=== PATIENT | male | born 1960 ===

== ENCOUNTER 2016-07-28 19:51 | Inpatient (IN) | payer OTHER ==
[2016-07-28 19:51] VITALS: BMI 27.5
[2016-07-28 20:08] VITALS: RESP 20
[2016-07-28] MEDS ORDERED: Albuterol-Ipratrop 3 mg / 0.5 (3 ml) UD ONE (20:13)
[2016-07-28] MEDS ORDERED: levETIRAcetam 500 MG in Sodium Chloride 0.9% 100 ML IVPB STA (20:30)
--- NOTE | 2016-07-28 20:31 | C.PDOC ---
History Of Present Illness 56 y/o male with PMHx inlcuding CAD, CABG, pacemaker, COPD, HTN, seizure disorder, polysubstance abuse, DM, chronically medically noncompliant, presents to ED with c/o shortness of breath. Patient brought in from triage and was started on nebulizer treatment. Patient began to have a seizure when placed in the stretcher and is now post-ictal, unable to provide further history. Time Seen by Provider: 07/28/16 20:26 Chief Complaint (Nursing): Shortness Of Breath History Per: Patient History/Exam Limitations: clinical condition Onset/Duration Of Symptoms: Unknown Associated Symptoms: denies: Fever, Ankle/Leg Swelling Past Medical History Reviewed: Historical Data, Nursing Documentation, Vital Signs Vital Signs: Last Vital Signs Temp 98.1 F 07/28/16 20:05 Pulse 110 H 07/28/16 20:05 Resp 20 07/28/16 20:05 BP 143/94 H 07/28/16 20:05 Pulse Ox 96 07/28/16 20:35 - Medical History PMH: Asthma, Back Problems, Cardia Arrhythmia (afib), CHF, COPD, Depression, HTN , Hypercholesterolemia, Pneumonia, Seizures Surgical History: CABG (x3), Coronary Stent (x2), Pacemaker - [facility] Procedures CORONAR ARTERIOGR-2 CATH (06/24/14) CORONARY ARTERY STENT INSERTION [id number] (06/24/14) INFLUENZA VACCINATION (04/25/14) INSERTION OF ONE VASCULAR STENT (06/24/14) INTRODUCE OF OTH THERAP SUBST INTO RESP TRACT, VIA OPENING (06/19/15) INTRODUCTION OF SERUM/TOX/VACCINE INTO MUSCLE, PERC APPROACH (01/05/16) LEFT HEART CARDIAC CATH (06/24/14) NEBULIZER THERAPY (07/12/14) PERCUTANEOUS TRANSLUMINAL CORONARY ANGIOPLASTY [PTCA] (06/24/14) PROCEDURE ON SINGLE VESSEL (06/24/14) VACCINATION NEC (04/25/14) Family History: States: Unknown Family Hx, Diabetes - Social History Hx Tobacco Use: Yes (occasional) Hx Alcohol Use: Yes Hx Substance Use: Yes (cocaine, marijuana, opiates) - Immunization History Hx Tetanus Toxoid Vaccination: No Hx Influenza Vaccination: No Hx Pneumococcal Vaccination: No Review Of Systems Review Of Systems: ROS cannot be obtained secondary to pt's inabilty to answer questions. Physical Exam - Physical Exam Appears: No Acute Distress, Other (post-ictal, not speaking) Skin: Warm, Dry Head: Atraumatic, Normacephalic Chest: Symmetrical Cardiovascular: Rhythm Regular (tachycardic) Respiratory: Wheezing (In all lung marcial) Gastrointestinal/Abdominal: Soft, No Tenderness Back: Normal Inspection Extremity: Normal ROM ED Course And Treatment - Laboratory Results Result Diagrams: 07/28/16 20:36 07/28/16 20:36 Lab Interpretation: Abnormal (Elevated LFTs, ETOH 285) ECG: Interpreted By Me ECG Rhythm: Sinus Tachycardia, ST/T Changes (T wave inversions II, III, AVF, V6) ECG Interpretation: Abnormal O2 Sat by Pulse Oximetry: 96 (RA) Pulse Ox Interpretation: Normal - Radiology CXR: Interpreted by Me CXR Interpretation: Yes: Other (vascular congestion) Progress Note: Patient woke after seizure and was a ble to speak with his brother. Was alert and oriented. he did have a second seizure lasting 1-2 minutes. Ativan 2mg given again, Keppra 500mg IVPB ordered. Reevaluation Time: 21:56 Reassessment Condition: Improved - Physician Consult Information Time Consulting Physician Contacted: 21:56 Physician Contacted: Quinten Lema Outcome Of Conversation: Patient to be admitted for exacerbation of COPD, Seizure disorder, Alcohol intoxication. Disposition - Disposition Disposition: HOSPITALIZED Disposition Time: 21:57 Condition: STABLE - POA Present On Arrival: None - Clinical Impression Clinical Impression: Chronic congestive heart failure, COPD exacerbation, Alcohol intoxication, Seizure disorder - Scribe Statement The provider has reviewed the documentation as recorded by the Lesli Sampson All medical record entries made by the Wilfridibshahana were at my direction and personally dictated by me. I have reviewed the chart and agree that the record accurately reflects my personal performance of the history, physical exam, medical decision making, and the department course for this patient. I have also personally directed, reviewed, and agree with the discharge instructions and disposition.
[2016-07-28 20:42] LABS: BASO # 0.1 K/uL (0.0-0.2); BASO % 1.1 % (0.0-2.0); EOS # 0.1 K/uL (0.0-0.7); EOS % 0.9 % (0.0-4.0); HEMATOCRIT 39.2 % (35.0-51.0); LYMPH # 1.7 K/uL (1.0-4.3); LYMPH % 16.3 % (20.0-40.0); MEAN CELL VOLUME 92.3 fL (80.0-94.0); MEAN CORPUSCULAR HGB CONC 32.4 g/dL (33.0-37.0); MONO # 1.2 K/uL (0.0-0.8); MONO % 11.8 % (0.0-10.0); NRBC % 0.2 % (0.0-2.0); RED CELL DISTRIBUTION WIDTH 15.9 % (11.5-14.5); WHITE BLOOD COUNT 10.3 K/uL (4.8-10.8)
[2016-07-28 20:42] LABS: VENOUS BLOOD GAS BASE EXCESS -0.8 mmol/L (0.0-2.0); VENOUS BLOOD GAS PCO2 44 mmHg (40-60); VENOUS BLOOD PH 7.36 (7.32-7.43)
[2016-07-28 20:49] LABS: CHLORIDE 103 mmol/L (98-107); POTASSIUM 3.4 mmol/L (3.6-5.2); SODIUM 140 mmol/L (132-148)
[2016-07-28 20:51] LABS: BILIRUBIN,TOTAL 0.7 mg/dL (0.2-1.3); CARBON DIOXIDE 23 mmol/L (22-30); GFR AFRICAN-AMERICAN > 60
[2016-07-28 20:52] LABS: ALB/GLOB RATIO 1.3 (1.0-2.1); ALKALINE PHOSPHATASE 208 U/L (38-126); ALT/SGPT 179 U/L (21-72); AST/SGOT 228 U/L (17-59); BLOOD UREA NITROGEN 10 mg/dL (9-20); CALCIUM 7.7 mg/dl (8.6-10.4); GLUCOSE,RANDOM 99 mg/dL (75-110); TOTAL PROTEIN 6.4 g/dL (6.3-8.3)
[2016-07-28 20:53] LABS: ALCOHOL SERUM 285 mg/dl (0-10)
--- NOTE | 2016-07-28 23:31 | CP.PCM.HP ---
Past Patient History - Infectious Disease Hx of Infectious Diseases: None - Tetanus Immunizations Tetanus Immunization: Unknown - Past Medical History & Family History Past Medical History?: Yes - Past Social History Smoking Status: Light Smoker < 10 Cigarettes Daily - CARDIAC Hx Cardia Arrhythmia: Yes (afib) Hx Congestive Heart Failure: Yes Hx Hypercholesterolemia: Yes Hx Hypertension: Yes Hx Pacemaker: Yes - PULMONARY Hx Asthma: Yes Hx Chronic Obstructive Pulmonary Disease (COPD): Yes Hx Pneumonia: Yes - NEUROLOGICAL Hx Seizures: Yes - HEENT Hx HEENT Problems: No - RENAL Hx Chronic Kidney Disease: No - ENDOCRINE/METABOLIC Hx Endocrine Disorders: Yes Hx Diabetes Mellitus Type 2: Yes - HEMATOLOGICAL/ONCOLOGICAL Hx Blood Disorders: No - INTEGUMENTARY Hx Dermatological Problems: No - MUSCULOSKELETAL/RHEUMATOLOGICAL Hx Musculoskeletal Disorders: Yes Hx Falls: Yes - GASTROINTESTINAL Hx Gastrointestinal Disorders: No - GENITOURINARY/GYNECOLOGICAL Hx Genitourinary Disorders: No - PSYCHIATRIC Hx Depression: Yes Hx Substance Use: Yes (cocaine, marijuana, opiates) - SURGICAL HISTORY Hx Coronary Artery Bypass Graft: Yes (x3) Hx Coronary Stent: Yes (x2) - ANESTHESIA Hx Anesthesia: Yes Hx Anesthesia Reactions: No Hx Malignant Hyperthermia: No Meds Allergies/Adverse Reactions: Allergies Allergy/AdvReac Type Severity Reaction Status Date / Time No Known Allergies Allergy Verified 04/28/16 04:19 Results - Vital Signs Recent Vital Signs: Last Vital Signs Temp 97.9 F 07/28/16 21:57 Pulse 108 H 07/28/16 21:57 Resp 20 07/28/16 21:57 BP 138/79 07/28/16 21:57 Pulse Ox 96 07/28/16 21:57 - Labs Result Diagrams: 07/28/16 20:36 07/28/16 20:36
[2016-07-28] MEDS ORDERED: Potassium Chloride 20 mEq/15 ml LIQ UD PO STA (23:57)
[2016-07-29] MEDS ORDERED: DiphenhydrAMINE 50 mg/ml Inj IM PRN (00:10)
[2016-07-29] MEDS: Albuterol-Ipratrop 3 mg / 0.5 (3 ml) UD INH SCH ×4 (01:34→19:31)
[2016-07-29] MEDS: MethylPREDNISolone 40 mg Vial IV SCH ×3 (06:30→21:23)
[2016-07-29 06:43] LABS: URINE BILIRUBIN NEGATIVE (NEGATIVE); URINE BLOOD NEGATIVE (NEGATIVE); URINE COLOR Yellow (YELLOW); URINE GLUCOSE (UA) NORMAL (Normal); URINE KETONE TRACE mg/dL (NEGATIVE); URINE LEUKOCYTE ESTERASE NEG Leu/uL (Negative); URINE PROTEIN NEGATIVE (NEGATIVE); URINE UROBILINOGEN NORMAL mg/dL (0.2-1.0); WBC URINE < 1 /hpf (0-5)
--- NOTE | 2016-07-29 09:31 | RAD ---
PROCEDURE: CHEST RADIOGRAPH, 1 VIEW HISTORY: Seizure COMPARISON: 11/27/2015 FINDINGS: LUNGS: Mild to moderate venous congestion. Right hilar prominence. Left basilar airspace opacity. Small bilateral pleural effusions. Biapical pleural thickening. PLEURA: As above. CARDIOVASCULAR: Cardiomegaly. Status post median sternotomy and CABG. Left-sided pacemaker. OSSEOUS STRUCTURES: Degenerative changes in the spine and shoulders. VISUALIZED UPPER ABDOMEN: Normal. OTHER FINDINGS: None. IMPRESSION: Mild to moderate venous congestion. Right hilar prominence. Left basilar airspace opacity. Small bilateral pleural effusions. Biapical pleural thickening.
[2016-07-29] MEDS: Enoxaparin 40 mg Syringe SC SCH (09:57)
[2016-07-29 10:08] LABS: BASO # 0.1 K/uL (0.0-0.2); BASO % 0.6 % (0.0-2.0); HEMATOCRIT 40.1 % (35.0-51.0); LYMPH # 1.1 K/uL (1.0-4.3); LYMPH % 9.4 % (20.0-40.0); MEAN CELL VOLUME 92.9 fL (80.0-94.0); MEAN CORPUSCULAR HEMOGLOBIN 29.7 pg (27.0-31.0); MEAN PLATELET VOLUME 9.3 fL (7.2-11.7); MONO # 0.3 K/uL (0.0-0.8); MONO % 2.4 % (0.0-10.0); NRBC % 0.1 % (0.0-2.0); PLATELET COUNT 270 K/uL (130-400); RED CELL DISTRIBUTION WIDTH 15.6 % (11.5-14.5); WHITE BLOOD COUNT 11.8 K/uL (4.8-10.8)
[2016-07-29] MEDS: Fluticasone-Salmeterol 250-50mcg Diskus INH SCH ×2 (10:27→19:31)
[2016-07-29 10:32] LABS: CHLORIDE 100 mmol/L (98-107); SODIUM 134 mmol/L (132-148)
[2016-07-29 10:35] LABS: ALB/GLOB RATIO 1.1 (1.0-2.1); ALKALINE PHOSPHATASE 229 U/L (38-126); ALT/SGPT 160 U/L (21-72); AST/SGOT 166 U/L (17-59); BLOOD UREA NITROGEN 8 mg/dL (9-20); CARBON DIOXIDE 24 mmol/L (22-30); GFR AFRICAN-AMERICAN > 60; GLUCOSE,RANDOM 180 mg/dL (75-110); TOTAL PROTEIN 6.8 g/dL (6.3-8.3)
[2016-07-29 10:36] LABS: CALCIUM 8.1 mg/dl (8.6-10.4)
[2016-07-29 11:01] LABS: NEUTROPHIL 90 % (50-75); TOTAL CELLS COUNTED 100
[2016-07-29] MEDS: Azithromycin 500 MG in Sodium Chloride 0.9% 250 ML IVPB SCH (11:21)
[2016-07-29] MEDS ORDERED: Digoxin 250 mcg (0.25 mg) Tab PO SCH ×2 (14:00→18:00)
[2016-07-29 17:40] VITALS: PULSE 92
--- NOTE | 2016-07-29 18:36 | CP.PCM.CON ---
Past Patient History - Infectious Disease Hx of Infectious Diseases: None - Tetanus Immunizations Tetanus Immunization: Unknown - Past Medical History & Family History Past Medical History?: Yes - Past Social History Smoking Status: Light Smoker < 10 Cigarettes Daily - CARDIAC Hx Congestive Heart Failure: Yes Hx Hypercholesterolemia: Yes Hx Hypertension: Yes - PULMONARY Hx Chronic Obstructive Pulmonary Disease (COPD): Yes - NEUROLOGICAL Hx Seizures: Yes - HEENT Hx HEENT Problems: No - RENAL Hx Chronic Kidney Disease: No - ENDOCRINE/METABOLIC Hx Diabetes Mellitus Type 2: Yes - HEMATOLOGICAL/ONCOLOGICAL Hx Blood Disorders: No - INTEGUMENTARY Hx Dermatological Problems: No - MUSCULOSKELETAL/RHEUMATOLOGICAL Hx Falls: Yes - GASTROINTESTINAL Hx Gastrointestinal Disorders: No - GENITOURINARY/GYNECOLOGICAL Hx Genitourinary Disorders: No - PSYCHIATRIC Hx Substance Use: Yes - SURGICAL HISTORY Hx Coronary Artery Bypass Graft: Yes (x3) Hx Coronary Stent: Yes (x2) - ANESTHESIA Hx Anesthesia: Yes Hx Anesthesia Reactions: No Hx Malignant Hyperthermia: No Meds Allergies/Adverse Reactions: Allergies Allergy/AdvReac Type Severity Reaction Status Date / Time No Known Allergies Allergy Verified 04/28/16 04:19 - Medications Medications: Current Medications Albuterol/Ipratropium (Duoneb 3 Mg/0.5 Mg (3 Ml) Ud) 3 ml INH RQ6 [facility] Last Admin: 07/29/16 14:04 Dose: 3 ml Aspirin (Ecotrin) 81 mg PO DAILY [facility] Last Admin: 07/29/16 09:56 Dose: 81 mg Carvedilol (Coreg) 3.125 mg PO BID [facility] Last Admin: 07/29/16 17:39 Dose: 3.125 mg Chlordiazepoxide (Librium) 25 mg PO Q8 PRN PRN Reason: tremors Last Admin: 07/29/16 14:00 Dose: 25 mg Clopidogrel Bisulfate (Plavix) 75 mg PO DAILY [facility] Last Admin: 07/29/16 09:55 Dose: 75 mg Digoxin (Lanoxin) 0.25 mg PO 1800 [facility] Last Admin: 07/29/16 17:39 Dose: 0.25 mg Diphenhydramine HCl (Benadryl) 25 mg IM Q12 PRN PRN Reason: Agitation Enoxaparin Sodium (Lovenox) 40 mg SC DAILY [facility] Last Admin: 07/29/16 09:57 Dose: 40 mg Folic Acid (Folic Acid) 1 mg PO DAILY [facility] Last Admin: 07/29/16 09:55 Dose: 1 mg Furosemide (Lasix) 40 mg PO DAILY [facility] Last Admin: 07/29/16 14:00 Dose: 40 mg Azithromycin 500 mg/ Sodium (Chloride) 250 mls @ 250 mls/hr IVPB DAILY [facility] Last Admin: 07/29/16 11:21 Dose: 250 mls/hr Ceftriaxone Sodium 1 gm/ (Sodium Chloride) 100 mls @ 100 mls/hr IVPB DAILY [facility] Last Admin: 07/29/16 09:58 Dose: 100 mls/hr Ketorolac Tromethamine (Toradol) 30 mg IVP Q6 PRN PRN Reason: Pain, moderate (4-7) Levetiracetam (Keppra) 500 mg PO BID [facility] Last Admin: 07/29/16 17:39 Dose: 500 mg Lorazepam (Ativan) 1 mg IVP Q12 PRN PRN Reason: Agitation Last Admin: 07/29/16 00:52 Dose: 1 mg Losartan Potassium (Cozaar) 25 mg PO DAILY [facility] Last Admin: 07/29/16 09:55 Dose: 25 mg Metformin HCl (Glucophage) 500 mg PO BID [facility] Last Admin: 07/29/16 17:39 Dose: 500 mg Methylprednisolone (Solu-Medrol) 40 mg IV Q8 [facility] Last Admin: 07/29/16 14:01 Dose: 40 mg Rosuvastatin Calcium (Crestor) 10 mg PO [facility] Fluticasone/Salmeterol (Advair Diskus 250/50) 1 puff INH RQ12 [facility] Last Admin: 07/29/16 10:27 Dose: 1 puff Thiamine HCl (Vitamin B1 Tab) 100 mg PO DAILY [facility] Last Admin: 07/29/16 09:56 Dose: 100 mg Results - Vital Signs Recent Vital Signs: Last Vital Signs Temp 97.5 F L 07/29/16 15:30 Pulse 95 H 07/29/16 15:30 Resp 20 07/29/16 15:30 BP 136/83 07/29/16 15:30 Pulse Ox 96 07/29/16 15:30 - Labs Result Diagrams: 07/29/16 10:02 07/29/16 10:02 Labs: Laboratory Results - last 24 hr 07/28/16 07/29/16 07/29/16 23:52 06:12 06:28 WBC RBC Hgb Hct MCV MCH MCHC RDW Plt Count MPV Neut % (Auto) Lymph % (Auto) [place] % (Auto) Eos % (Auto) Baso % (Auto) Neut # Lymph # [place] # Eos # Baso # Neutrophils % (Manual) Band Neutrophils % Lymphocytes % (Manual) Monocytes % (Manual) Platelet Estimate Anisocytosis (manual) Target Cells Sodium Potassium Chloride Carbon Dioxide Anion Gap BUN Creatinine Est GFR ( Amer) Est GFR (Non-Af Amer) POC Glucose (mg/dL) 59 L Random Glucose Calcium Total Bilirubin AST ALT Alkaline Phosphatase Total Protein Albumin Globulin Albumin/Globulin Ratio Prolactin Urine Color Yellow Urine Clarity Clear Urine pH 5.0 Ur Specific [place] 1.013 Urine Protein Negative Urine Glucose (UA) Normal Urine Ketones Trace Urine Blood Negative Urine Nitrate Negative Urine Bilirubin Negative Urine Urobilinogen Normal Ur Leukocyte Esterase Neg Urine WBC (Auto) < 1 Digoxin < 0.4 L Urine Opiates Screen Urine Methadone Screen Ur Barbiturates Screen Ur Phencyclidine Scrn Ur Amphetamines Screen U Benzodiazepines Scrn U Oth Cocaine Metabols U Cannabinoids Screen 07/29/16 07/29/16 07/29/16 06:28 06:30 10:02 WBC 11.8 H RBC 4.32 L Hgb 12.8 Hct 40.1 MCV 92.9 MCH 29.7 MCHC 32.0 L RDW 15.6 H Plt Count 270 MPV 9.3 Neut % (Auto) 87.6 H Lymph % (Auto) 9.4 L Bl[place] % (Auto) 2.4 Eos % (Auto) 0.0 Baso % (Auto) 0.6 Neut # 10.3 H Lymph # 1.1 Blanco # 0.3 Eos # 0.0 Baso # 0.1 Neutrophils % (Manual) 90 H Band Neutrophils % 3 H Lymphocytes % (Manual) 4 L Monocytes % (Manual) 3 Platelet Estimate Normal Anisocytosis (manual) Slight Target Cells Slight Sodium Potassium Chloride Carbon Dioxide Anion Gap BUN Creatinine Est GFR ( Amer) Est GFR (Non-Af Amer) POC Glucose (mg/dL) 82 Random Glucose Calcium Total Bilirubin AST ALT Alkaline Phosphatase Total Protein Albumin Globulin Albumin/Globulin Ratio Prolactin Urine Color Urine Clarity Urine pH Ur Specific [place] Urine Protein Urine Glucose (UA) Urine Ketones Urine Blood Urine Nitrate Urine Bilirubin Urine Urobilinogen Ur Leukocyte Esterase Urine WBC (Auto) Digoxin Urine Opiates Screen Negative Urine Methadone Screen Negative Ur Barbiturates Screen Negative Ur Phencyclidine Scrn Negative Ur Amphetamines Screen Negative U Benzodiazepines Scrn Positive U Oth Cocaine Metabols Negative U Cannabinoids Screen Negative 07/29/16 07/29/16 07/29/16 10:02 11:13 16:34 WBC RBC Hgb Hct MCV MCH MCHC RDW Plt Count MPV Neut % (Auto) Lymph % (Auto) Blanco % (Auto) Eos % (Auto) Baso % (Auto) Neut # Lymph # [place] # Eos # Baso # Neutrophils % (Manual) Band Neutrophils % Lymphocytes % (Manual) Monocytes % (Manual) Platelet Estimate Anisocytosis (manual) Target Cells Sodium 134 Potassium 4.0 Chloride 100 Carbon Dioxide 24 Anion Gap 14 BUN 8 L Creatinine 0.6 L Est GFR ( Amer) > 60 Est GFR (Non-Af Amer) > 60 POC Glucose (mg/dL) 312 H 272 H Random Glucose 180 H Calcium 8.1 L Total Bilirubin 1.0 AST 166 H D ALT 160 H Alkaline Phosphatase 229 H Total Protein 6.8 Albumin 3.6 Globulin 3.2 Albumin/Globulin Ratio 1.1 Prolactin 13.6 Urine Color Urine Clarity Urine pH Ur Specific [place] Urine Protein Urine Glucose (UA) Urine Ketones Urine Blood Urine Nitrate Urine Bilirubin Urine Urobilinogen Ur Leukocyte Esterase Urine WBC (Auto) Digoxin Urine Opiates Screen Urine Methadone Screen Ur Barbiturates Screen Ur Phencyclidine Scrn Ur Amphetamines Screen U Benzodiazepines Scrn U Oth Cocaine Metabols U Cannabinoids Screen
--- NOTE | 2016-07-29 18:53 | CT ---
PROCEDURE: CT HEAD WITHOUT CONTRAST. HISTORY: R/O Bleed /SDH COMPARISON: None available. TECHNIQUE: Axial computed tomography images were obtained through the head/brain without intravenous contrast. Radiation dose: Total exam DLP = 935.95 mGy-cm. This CT exam was performed using one or more of the following dose reduction techniques: Automated exposure control, adjustment of the mA and/or kV according to patient size, and/or use of iterative reconstruction technique. FINDINGS: Streak artifact obscures evaluation of the skullbase. HEMORRHAGE: No intracranial hemorrhage. BRAIN: No mass effect or edema. Scattered periventricular and subcortical white matter hypodensities, which are nonspecific, but often seen with chronic microvascular ischemic disease. More focal patchy hypodensities within the right frontal lobe and left frontal parietal white matter which may reflect encephalomalacia. VENTRICLES: No hydrocephalus. CALVARIUM: Unremarkable. PARANASAL SINUSES: Unremarkable as visualized. No significant inflammatory changes. MASTOID AIR CELLS: Unremarkable as visualized. No inflammatory changes. OTHER FINDINGS: None. IMPRESSION: Nonspecific white matter changes. More focal patchy hypodensities within the right frontal lobe and left frontal parietal white matter which may reflect encephalomalacia.Please note that MRI with diffusion imaging is more sensitive in the detection of acute ischemic event.
[2016-07-30] MEDS: Albuterol-Ipratrop 3 mg / 0.5 (3 ml) UD INH SCH ×3 (01:42→14:17)
--- NOTE | 2016-07-30 03:03 | CON ---
DATE: 07/29/2016 REASON FOR THE CONSULTATION: Seizures. CHIEF COMPLAINT: The patient was brought into [facility] with a history of shortness of breath. While he was placed on the stretcher, patient had witnessed seizure activities. In the Emergency R oom, patient found to have alcohol overdose. From neurological point of view, I was called in to ray luate him for further management. HISTORY OF PRESENT ILLNESS: The patient is a 56-year-old right-handed, moderately obese, ma tyler presenting with 5 years, history of seizure disorder, been on medication on Keppra, noncompliant w ith medication and history of alcohol use, being drank 4-5 bottles of beer yesterday. Following this , he had shortness of breath. On his way to the Emergency Room, he had witnessed seizure activities. No history of bowel or bladder incontinence. No history of bitten tongue. The patient does have seizures. The history of seizures is once a month. Lately, he is noncompliant with the medication. PAST MEDICAL HISTORY: Hypertension, status post coronary bypass and pacemaker placement, dyslipidemi a, [id number] diabetes mellitus. PERSONAL HISTORY: History of substance abuse and alcohol use. He is a light smoker of less than 10 cigarettes per day as per the history. REVIEW OF SYSTEMS: As per H and P. MEDICATIONS: Advair, Ativan, azithromycin, Benadryl, ceftriaxone, Coreg, Cozaar, Crestor, aspirin, f olic acid, metformin, Levetiracetam 500 mg twice a day, Lanoxin, furosemide, Librium and Lovenox. PHYSICAL EXAMINATION: VITAL SIGNS: Blood pressure 136/83, mean arterial pressure of 100, respiratory rate 16, temperature 97.5 degrees Fahrenheit, pulse rate 95 irregular. NECK: Supple. No carotid bruit. HEART: Sounds irregularly irregular. EXTREMITIES: 1+ pitting edema. The patient complaining of right shoulder pain from the fall. NEUROLOGIC EXAMINATION: MENTAL STATUS EXAMINATION: He is awake, alert, oriented to person, place, a nd time. Speech is clear. Naming, repetition, fluency, comprehension all within normal. No evidenc e of suicidal ideation. No confabulation. PSYCHIATRIC: No sign of depression. CRANIAL NERVE EXAMINATION: Visual field intact, pupil reactive to light. Extraocular movements are normal. No nystagmus, no facial sensory deficit, no facial asymmetry. Hearing is normal. Tongue is midline. Good gag. MOTOR: Outstretched hand with eyes closed, no drift noted. Power is symmetric on either side. No a sterixis. DEEP TENDON REFLEXES: Biceps, brachioradialis, triceps 1+. Both knees are trace. Both ankles are a bsent. Plantars are equivocal response. SENSORY: Significant bilateral distal sensory motor neuropathy, which is probably secondary to his u nderlying diabetes mellitus and his alcohol use at present. GAIT: Broad based gait. CONCLUSION: Upon reviewing his history and neurological examination, the patient presenting with his seizures and a history of alcohol overdose. Intracranial pathology should be ruled out at this time . The patient's seizures are probably secondary to his subtherapeutic dose and noncompliance with an tiepileptic drugs. There is significant distal sensory and motor neuropathy secondary to diabetes me llitus and alcohol use. Cardiac arrhythmias. BLOOD WORKUP: WBC 11.8, hemoglobin 12.8, hematocrit 40.1, platelet 270. Sodium 134, potassium 4.0, chloride 100, bicarbonate 24, BUN 8, creatinine 0.6. The GFR more than 60, glucose 272, calcium 8.1. Prolactin level was 13.6. Digoxin level 0.4. Alcohol level 285, benzos positive in the blood. RECOMMENDATIONS: 1. Resume his Keppra dose 2. EEG. 3. CT of the head to be done to rule out any intracranial pathology such as intracranial bleed. 4. For pain medication, important nonsteroidal anti-inflammatory drugs can be given for his right sh oulder pain. The patient's condition has been well discussed with him. Options for him are called weight reductio n and diabetic control. All are being discussed with him. The patient should have polysomnogram to rule out sleep related breathing disorder such as obstructive sleep apnea versus a central sleep apne a. The patient's condition has been well discussed. The patient is aware of his problem. The patient w ill be followed closely with you. Dre Samano MD cc: [id number] TT: 07/30/2016 03:02:49 Confirmation # [id number] Dictation # [id number] mn
[2016-07-30] MEDS: MethylPREDNISolone 40 mg Vial IV SCH ×2 (05:13→13:28)
[2016-07-30] MEDS ORDERED: Naproxen 550 mg Tab PO PRN (07:26)
[2016-07-30] MEDS: Fluticasone-Salmeterol 250-50mcg Diskus INH SCH (07:54)
[2016-07-30 08:12] VITALS: TEMP 97.9; O2SAT 99
--- NOTE | 2016-07-30 09:12 | PN ---
DATE: 07/30/2016 TIME OF EVALUATION: 7:14 a.m. NEUROLOGICAL PROBLEM: Recurrent seizures with alcohol abuse. PHYSICAL EXAMINATION: VITAL SIGNS: Blood pressure 124/83, mean arterial pressure of 96, respiratory rate 18, temperature 9 8.1 with a pulse rate 94. NEUROLOGIC: The patient is sound sleeping, easily arousable on calling his last name. Still complai agustín of right shoulder pain. Otherwise, he slept well. No headache. Not any new witnessed seizure activity since he was admitted. Examination is unchanged except tenderness over the right shoulder. No sign of delirium tremens or a lcohol intoxication at present. WORKUP: CT of the head reviewed by me showed a focal encephalopathy over the right frontal as well a s the left temporoparietal region. This could be related to old stroke versus posttraumatic insult. There is no evidence of intracranial as well as extracranial bleed noted. The patient also noted to have subcortical ischemic changes over the left basal ganglia as well. BLOOD WORKUP: Glucose 232. RECOMMENDATIONS: 1. Electroencephalogram. 2. Continue Keppra with seizure precaution. 3. MRI of the brain to be done to rule out any new focal pathology. 4. Pain medication should be given for his right shoulder. The patient may be benefited to do x-ray of the right shoulder to rule out any acute pathology. 5. Alcohol abstinence has been discussed earlier with him. 6. Continue the present management with the proper hydration. Dre Samano MD cc: [id number] TT: 07/30/2016 09:11:54 Confirmation # [id number] Dictation # [id number]
[2016-07-30] MEDS: Enoxaparin 40 mg Syringe SC SCH (10:11)
[2016-07-30 10:12] VITALS: BP 147/81
--- NOTE | 2016-07-30 11:04 | RAD ---
PROCEDURE: Radiographs of the Right Shoulder HISTORY: R/O fracture COMPARISON: No prior. FINDINGS: BONES: No evidence of acute displaced fracture nor dislocation. The osseous structures appear intact. Minor degenerate changes of the right acromioclavicular and glenohumeral joints. Tiny calcification seen within the soft tissues adjacent to the superior glenoid rim. JOINTS: As above SOFT TISSUES: As above. OTHER FINDINGS: Sternotomy wires. In addition, in situ pacemaker wire is also visible IMPRESSION: No evidence of acute displaced fracture nor dislocation. Mild DJD. . .
[2016-07-30] MEDS: Azithromycin 500 MG in Sodium Chloride 0.9% 250 ML IVPB SCH (11:12)
--- NOTE | 2016-07-30 12:14 | CARD ---
APPROVED REPORT EKG Measurement Heart [id number] <Conclusion> Poor data quality, interpretation may be adversely affected Sinus tachycardia Inferior infarct, age undetermined Abnormal ECG
--- NOTE | 2016-07-30 14:01 | CP.PCM.PN ---
Objective - Vital Signs/Intake and Output Vital Signs (last 24 hours): Temp Pulse Resp BP Pulse Ox 97.9 F 96 H 20 147/81 99 07/30/16 07:05 07/30/16 08:00 07/30/16 07:05 07/30/16 10:08 07/30/16 07:05 - Medications Medications: Current Medications Albuterol/Ipratropium (Duoneb 3 Mg/0.5 Mg (3 Ml) Ud) 3 ml INH RQ6 [facility] Last Admin: 07/30/16 07:55 Dose: 3 ml Aspirin (Ecotrin) 81 mg PO DAILY [facility] Last Admin: 07/30/16 10:08 Dose: 81 mg Carvedilol (Coreg) 3.125 mg PO BID [facility] Last Admin: 07/30/16 10:10 Dose: 3.125 mg Chlordiazepoxide (Librium) 25 mg PO Q8 PRN PRN Reason: tremors Last Admin: 07/29/16 14:00 Dose: 25 mg Clopidogrel Bisulfate (Plavix) 75 mg PO DAILY [facility] Last Admin: 07/30/16 10:09 Dose: 75 mg Digoxin (Lanoxin) 0.25 mg PO 1800 [facility] Last Admin: 07/29/16 17:39 Dose: 0.25 mg Diphenhydramine HCl (Benadryl) 25 mg IM Q12 PRN PRN Reason: Agitation Enoxaparin Sodium (Lovenox) 40 mg SC DAILY [facility] Last Admin: 07/30/16 10:11 Dose: Not Given Famotidine (Pepcid) 20 mg IVP Q12 [facility] Last Admin: 07/30/16 10:15 Dose: 20 mg Folic Acid (Folic Acid) 1 mg PO DAILY [facility] Last Admin: 07/30/16 10:09 Dose: 1 mg Furosemide (Lasix) 40 mg PO DAILY [facility] Last Admin: 07/30/16 10:08 Dose: 40 mg Azithromycin 500 mg/ Sodium (Chloride) 250 mls @ 250 mls/hr IVPB DAILY [facility] Last Admin: 07/30/16 11:12 Dose: 250 mls/hr Ceftriaxone Sodium 1 gm/ (Sodium Chloride) 100 mls @ 100 mls/hr IVPB DAILY [facility] Last Admin: 07/30/16 09:59 Dose: 100 mls/hr Ketorolac Tromethamine (Toradol) 30 mg IVP Q6 PRN PRN Reason: Pain, moderate (4-7) Last Admin: 07/30/16 10:03 Dose: 30 mg Levetiracetam (Keppra) 500 mg PO BID [facility] Last Admin: 07/30/16 10:08 Dose: 500 mg Lorazepam (Ativan) 1 mg IVP Q12 PRN PRN Reason: Agitation Last Admin: 07/29/16 00:52 Dose: 1 mg Losartan Potassium (Cozaar) 25 mg PO DAILY [facility] Last Admin: 07/30/16 10:09 Dose: 25 mg Metformin HCl (Glucophage) 500 mg PO BID [facility] Last Admin: 07/30/16 10:09 Dose: 500 mg Methylprednisolone (Solu-Medrol) 40 mg IV Q8 [facility] Last Admin: 07/30/16 13:28 Dose: 40 mg Naproxen (Anaprox Ds) 550 mg PO BID PRN PRN Reason: Pain, moderate (4-7) Rosuvastatin Calcium (Crestor) 10 mg PO HS [facility] Last Admin: 07/29/16 21:22 Dose: 10 mg Fluticasone/Salmeterol (Advair Diskus 250/50) 1 puff INH RQ12 [facility] Last Admin: 07/30/16 07:54 Dose: 1 puff Thiamine HCl (Vitamin B1 Tab) 100 mg PO DAILY [facility] Last Admin: 07/30/16 10:09 Dose: 100 mg - Labs Labs: 07/29/16 10:02 07/29/16 10:02
--- NOTE | 2016-07-30 15:36 | CP.PCM.PN ---
Subjective - Date & Time of Evaluation Date of Evaluation: 07/30/16 Time of Evaluation: 15:35 - Subjective Subjective: 56 Y/O MALE SEEN AND EXAMINED BY DR ROSADO TODAY PMHX CAD, CABG, PACEMAKER, HTN, SEIZURE, POLYSUB ABUSE, DM, MEDICALLY NON- COMPLIANT PT, ADMITTED FOR SOB, SEIZURE WHILE IN ED, SEEN BY DR GUZMÁN, IMPROVED W/MEDS, NO SEIZURE TODAY AAOX3, DENIES ANY PAIN, SOB, PT WISH TO D/C HOME TODAY PT CLEARED FOR D/C BY DR ROSADO AND DR GUZMÁN TODAY, MED REC DONE PT EDUCATED TO F/U W/ DR GUZMÁN FOR OUTPT EEG. F/U W/PMD RETURN TO ED IF ANY WORSENING S/S, AGREE W/POC, VERBALIZE UNDERSTANDING Objective - Vital Signs/Intake and Output Vital Signs (last 24 hours): Temp Pulse Resp BP Pulse Ox 97.9 F 96 H 20 147/81 99 07/30/16 07:05 07/30/16 08:00 07/30/16 07:05 07/30/16 10:08 07/30/16 07:05 - Medications Medications: Current Medications Albuterol/Ipratropium (Duoneb 3 Mg/0.5 Mg (3 Ml) Ud) 3 ml INH RQ6 [facility] Last Admin: 07/30/16 14:17 Dose: 3 ml Aspirin (Ecotrin) 81 mg PO DAILY [facility] Last Admin: 07/30/16 10:08 Dose: 81 mg Carvedilol (Coreg) 3.125 mg PO BID [facility] Last Admin: 07/30/16 10:10 Dose: 3.125 mg Chlordiazepoxide (Librium) 25 mg PO Q8 PRN PRN Reason: tremors Last Admin: 07/29/16 14:00 Dose: 25 mg Clopidogrel Bisulfate (Plavix) 75 mg PO DAILY [facility] Last Admin: 07/30/16 10:09 Dose: 75 mg Digoxin (Lanoxin) 0.25 mg PO 1800 [facility] Last Admin: 07/29/16 17:39 Dose: 0.25 mg Diphenhydramine HCl (Benadryl) 25 mg IM Q12 PRN PRN Reason: Agitation Enoxaparin Sodium (Lovenox) 40 mg SC DAILY [facility] Last Admin: 07/30/16 10:11 Dose: Not Given Famotidine (Pepcid) 20 mg IVP Q12 [facility] Last Admin: 07/30/16 10:15 Dose: 20 mg Folic Acid (Folic Acid) 1 mg PO DAILY [facility] Last Admin: 07/30/16 10:09 Dose: 1 mg Furosemide (Lasix) 40 mg PO DAILY [facility] Last Admin: 07/30/16 10:08 Dose: 40 mg Azithromycin 500 mg/ Sodium (Chloride) 250 mls @ 250 mls/hr IVPB DAILY [facility] Last Admin: 07/30/16 11:12 Dose: 250 mls/hr Ceftriaxone Sodium 1 gm/ (Sodium Chloride) 100 mls @ 100 mls/hr IVPB DAILY [facility] Last Admin: 07/30/16 09:59 Dose: 100 mls/hr Ketorolac Tromethamine (Toradol) 30 mg IVP Q6 PRN PRN Reason: Pain, moderate (4-7) Last Admin: 07/30/16 10:03 Dose: 30 mg Levetiracetam (Keppra) 500 mg PO BID [facility] Last Admin: 07/30/16 10:08 Dose: 500 mg Lorazepam (Ativan) 1 mg IVP Q12 PRN PRN Reason: Agitation Last Admin: 07/29/16 00:52 Dose: 1 mg Losartan Potassium (Cozaar) 25 mg PO DAILY [facility] Last Admin: 07/30/16 10:09 Dose: 25 mg Metformin HCl (Glucophage) 500 mg PO BID [facility] Last Admin: 07/30/16 10:09 Dose: 500 mg Methylprednisolone (Solu-Medrol) 40 mg IV Q8 [facility] Last Admin: 07/30/16 13:28 Dose: 40 mg Naproxen (Anaprox Ds) 550 mg PO BID PRN PRN Reason: Pain, moderate (4-7) Rosuvastatin Calcium (Crestor) 10 mg PO HS [facility] Last Admin: 07/29/16 21:22 Dose: 10 mg Fluticasone/Salmeterol (Advair Diskus 250/50) 1 puff INH RQ12 [facility] Last Admin: 07/30/16 07:54 Dose: 1 puff Thiamine HCl (Vitamin B1 Tab) 100 mg PO DAILY [facility] Last Admin: 07/30/16 10:09 Dose: 100 mg - Labs Labs: 07/29/16 10:02 07/29/16 10:02
[2016-07-30 15:54] VITALS: PULSE 91
--- NOTE | 2016-07-30 17:34 | CARD ---
APPROVED REPORT EKG Measurement Heart [id number] <Conclusion> Sinus rhythm with occasional premature ventricular complexes Left ventricular hypertrophy with repolarization abnormality Possible Inferior infarct, age undetermined Prolonged QT Abnormal ECG
--- NOTE | 2016-07-30 17:36 | PCM.HF ---
Heart Failure Core Measure - Heart Failure Ejection Fraction: 40 % or Greater Left Ventricular Function to be assessed after discharge: Yes IQRA Inhibitor Prescribed: No Contraindication/Reason for not providing: ON ARB Beta-Gertrudis Prescribed: Carvedilol Angiotensin II Receptor Gertrudis Prescribed: Yes Contraindication/Reason for not providing: NO AFIB Aldosterone Antagonist Prescribed: No Contraindication/Reason for not providing: LVEF 40% Hydralazine Nitrate Prescribed: No Contraindication/Reason for not providing: LVEF 40% Implantable Cardioverter Defibrillator Therapy: Yes Cardiac Resynchronization Therapy Prescribed: No Contraindication/Reason for not providing: DEFIBRILLATOR - Follow up Will be discharged to: Home Follow Up Date (must be within 7 days from discharge): 08/02/16 Follow Up Time: 09:00
== END 2016-07-30 15:45 | disposition home or self-care (01) | DRG 88 ==
LOC: C.ER 19:51 → C.6T 21:57
PROVIDERS: ADMIT Internal Medicine Nephrology; ATTEND Internal Medicine Nephrology
DX: J44.1 Chronic obstructive pulmonary disease with (acute) exacerbation (principal); F11.10 Opioid abuse, uncomplicated; G93.40 Encephalopathy, unspecified; F14.10 Cocaine abuse, uncomplicated; E11.40 Type 2 diabetes mellitus with diabetic neuropathy, unspecified; I11.0 Hypertensive heart disease with heart failure; I50.9 Heart failure, unspecified; G40.909 Epilepsy, unspecified, not intractable, without status epilepticus; F32.9 Major depressive disorder, single episode, unspecified; I48.91 Unspecified atrial fibrillation; F12.10 Cannabis abuse, uncomplicated; F10.120 Alcohol abuse with intoxication, uncomplicated; Y90.8 Blood alcohol level of 240 mg/100 ml or more; I25.10 Atherosclerotic heart disease of native coronary artery without angina pectoris; Z91.14 Patient's other noncompliance with medication regimen; J45.909 Unspecified asthma, uncomplicated; E78.00 Pure hypercholesterolemia, unspecified; F17.210 Nicotine dependence, cigarettes, uncomplicated; E78.5 Hyperlipidemia, unspecified; M25.511 Pain in right shoulder; Z95.0 Presence of cardiac pacemaker; Z95.1 Presence of aortocoronary bypass graft

== ENCOUNTER 2016-09-15 22:23 | Observation (INO) | payer OTHER ==
[2016-09-15 22:23] VITALS: BMI 27.5
[2016-09-15] MEDS ORDERED: Albuterol-Ipratrop 3 mg / 0.5 (3 ml) UD ONE ×2 (22:33→23:35)
[2016-09-15 23:33] LABS: BASO # 0.1 K/uL (0.0-0.2); BASO % 1.3 % (0.0-2.0); EOS # 0.2 K/uL (0.0-0.7); EOS % 3.1 % (0.0-4.0); HEMATOCRIT 41.3 % (35.0-51.0); LYMPH # 2.3 K/uL (1.0-4.3); LYMPH % 32.3 % (20.0-40.0); MEAN CELL VOLUME 95.6 fL (80.0-94.0); MEAN CORPUSCULAR HEMOGLOBIN 30.5 pg (27.0-31.0); MEAN CORPUSCULAR HGB CONC 31.9 g/dL (33.0-37.0); MEAN PLATELET VOLUME 9.9 fL (7.2-11.7); MONO # 1.2 K/uL (0.0-0.8); MONO % 17.4 % (0.0-10.0); NRBC % 0.1 % (0.0-2.0); RED CELL DISTRIBUTION WIDTH 15.8 % (11.5-14.5); WHITE BLOOD COUNT 7.1 K/uL (4.8-10.8)
[2016-09-15] MEDS: Albuterol-Ipratrop 3 mg / 0.5 (3 ml) UD IH SCH (23:33)
[2016-09-15 23:39] LABS: CHLORIDE 102 mmol/L (98-107)
[2016-09-15 23:40] LABS: POTASSIUM 3.8 mmol/L (3.6-5.2); SODIUM 141 mmol/L (132-148)
[2016-09-15 23:42] LABS: ALB/GLOB RATIO 1.2 (1.0-2.1); ALKALINE PHOSPHATASE 246 U/L (38-126); ALT/SGPT 258 U/L (21-72); AST/SGOT 334 U/L (17-59); BILIRUBIN,TOTAL 0.7 mg/dL (0.2-1.3); BLOOD UREA NITROGEN 6 mg/dL (9-20); CALCIUM 8.1 mg/dl (8.6-10.4); CARBON DIOXIDE 26 mmol/L (22-30); GFR AFRICAN-AMERICAN > 60; GLUCOSE,RANDOM 110 mg/dL (75-110); TOTAL PROTEIN 6.3 g/dL (6.3-8.3)
[2016-09-15 23:43] LABS: ALCOHOL SERUM 274 mg/dl (0-10); MAGNESIUM 1.7 mg/dL (1.6-2.3)
[2016-09-16] MEDS ORDERED: Magnesium Sulfate 1 gm in D5W 1 GM/100 ML BAG IVPB STA (00:04)
--- NOTE | 2016-09-16 00:11 | C.PDOC ---
Time Seen by Provider: 09/15/16 23:01 Chief Complaint (Nursing): Shortness Of Breath History Per: Patient, EMS History/Exam Limitations: intoxication Onset/Duration Of Symptoms: Hrs Current Symptoms Are (Timing): Still Present Current Respiratory Medications: See Home Med List Severity: Moderate Additional History Per: Prior Records Past Medical History Reviewed: Historical Data, Nursing Documentation, Vital Signs Vital Signs: Last Vital Signs Temp 98.7 F 09/15/16 22:27 Pulse 90 09/15/16 23:00 Resp 22 09/15/16 22:27 BP 135/83 09/15/16 22:27 Pulse Ox 100 09/15/16 23:00 - Medical History PMH: Asthma, Back Problems, Cardia Arrhythmia (afib), CHF, COPD, Depression, HTN , Hypercholesterolemia, Pneumonia, Seizures Surgical History: CABG (x3), Coronary Stent (x2), Pacemaker - [facility] Procedures CORONAR ARTERIOGR-2 CATH (06/24/14) CORONARY ARTERY STENT INSERTION [id number] (06/24/14) INFLUENZA VACCINATION (04/25/14) INSERTION OF ONE VASCULAR STENT (06/24/14) INTRODUCE OF OTH THERAP SUBST INTO RESP TRACT, VIA OPENING (06/19/15) INTRODUCTION OF SERUM/TOX/VACCINE INTO MUSCLE, PERC APPROACH (01/05/16) LEFT HEART CARDIAC CATH (06/24/14) NEBULIZER THERAPY (07/12/14) PERCUTANEOUS TRANSLUMINAL CORONARY ANGIOPLASTY [PTCA] (06/24/14) PROCEDURE ON SINGLE VESSEL (06/24/14) VACCINATION NEC (04/25/14) Family History: States: Unknown Family Hx, Diabetes - Social History Hx Tobacco Use: Yes Hx Alcohol Use: Yes Hx Substance Use: Yes - Immunization History Hx Tetanus Toxoid Vaccination: No Hx Influenza Vaccination: No Hx Pneumococcal Vaccination: No Review Of Systems Constitutional: Negative for: Fever Cardiovascular: Negative for: Chest Pain Respiratory: Positive for: Shortness of Breath, Wheezing. Negative for: Hemoptysis Gastrointestinal: Negative for: Vomiting, Abdominal Pain Musculoskeletal: Negative for: Neck Pain Neurological: Negative for: Weakness, Seizures Physical Exam - Physical Exam Appears: In Acute Distress (mild), Chronically Ill, Other (AOB) Skin: Warm, Dry Head: Atraumatic Eye(s): bilateral: PERRL Neck: Normal ROM, Supple Cardiovascular: Rhythm Regular Respiratory: Wheezing Gastrointestinal/Abdominal: Soft, No Tenderness Extremity: Normal ROM, Pedal Edema Neurological/Psych: Oriented x3, Normal Motor, Normal Sensation ED Course And Treatment - Laboratory Results Result Diagrams: 09/15/16 23:28 09/15/16 23:28 ECG: Interpreted By Me, Viewed By Me ECG Rhythm: Sinus Rhythm, Nonspecific Changes ECG Interpretation: No Acute Changes Rate From EC O2 Sat by Pulse Oximetry: 100 Pulse Ox Interpretation: Normal - Radiology CXR: Interpreted by Me, Viewed By Me CXR Interpretation: Yes: Cardiomegaly Progress - Interventions Interventions:: Observation, Oxygen - Medications Administered Inhaled nebulized: Anticholinergic, Beta-2 agonist Intravenous: Corticosteroid - Data Reviewed Data Reviewed: Lab, Diagnostic imaging, EKG, Old records - Patient Status Patient status: Partially improved - Critical Care Citical Care: Excluding Proc Time Critical Care Time: 45 minutes - Continuity of Care Discussed patient case with:: Patient, ED Nurse, On-call PMD-pt unassigned - Patient Plan Patient Plan: Admission Disposition Discussed With : Angy Crouch Comment: She accepted pt on her service. Doctor Will See Patient In The: Hospital Counseled Patient/Family Regarding: Studies Performed, Diagnosis, Smoking Cessation - Disposition Disposition: HOSPITALIZED Disposition Time: 00:14 Condition: GUARDED - Clinical Impression Clinical Impression: Acute exacerbation of chronic obstructive pulmonary disease (COPD), Alcohol intoxication
[2016-09-16] MEDS ORDERED: Magnesium Sulfate 1 gm in D5W 1 GM/100 ML BAG IVPB ONE (01:14)
[2016-09-16 01:35] LABS: INR 0.9
[2016-09-16] MEDS ORDERED: Multivitamin (MVI) 10 ML, Thiamine 100 MG, Folic Acid 1 MG in Sodium Chloride 0.9% 1,00... IV ONE (01:52)
[2016-09-16] MEDS ORDERED: Albuterol-Ipratrop 3 mg / 0.5 (3 ml) UD INH PRN (01:54)
--- NOTE | 2016-09-16 07:33 | RAD ---
PROCEDURE: CHEST RADIOGRAPH, 1 VIEW HISTORY: Shortness of breath COMPARISON: 07/28/2016 FINDINGS: LUNGS: Mild to moderate venous congestion. Left basilar airspace opacity with small left pleural effusion. Right hilar prominence. Biapical pleural thickening with upper lobe granulomatous changes. Small nodular density projecting over the right upper lung zone. PLEURA: As above. CARDIOVASCULAR: Cardiomegaly. Status post median sternotomy and CABG. Left-sided pacemaker. OSSEOUS STRUCTURES: No significant abnormalities. VISUALIZED UPPER ABDOMEN: Normal. OTHER FINDINGS: None. IMPRESSION: Mild to moderate venous congestion. Left basilar airspace opacity with small left pleural effusion. Right hilar prominence. Biapical pleural thickening with upper lobe granulomatous changes. Small nodular density projecting over the right upper lung zone.
[2016-09-16] MEDS: Fluticasone-Salmeterol 250-50mcg Diskus INH SCH ×2 (07:47→19:37)
[2016-09-16] MEDS: (Novolin R) Insulin Human Regular 100 units/ml vial SC SCH ×4 (08:21→21:44)
[2016-09-16] MEDS ORDERED: THIAMINE MONONITRATE 100 MG PO SCH (10:00)
[2016-09-16] MEDS ORDERED: Home Med 1 UNIT (Simvastatin [Simvastatin] 40 MG) PO SCH (10:00)
[2016-09-16] MEDS ORDERED: UMECLIDINIUM BROMIDE INH SCH (10:00)
[2016-09-16] MEDS: Metoprolol Succinate 50 mg XL Tab PO SCH (10:25)
--- NOTE | 2016-09-16 12:58 | CP.PCM.CON ---
History of Present Illness - History of Present Illness History of Present Illness: complaining of shortness of breath 56-year-old male with long history of smoking,PMHx of CAD w CABG 15 years ago, asplenia, CHF w/ defibrillator, COPD not on home O2, seizure disorder, HTN, HLD , polysubstance abuse (etoh, crack, and opiods), DM on metformin, who is chronically medically non compliant,presented to emergency room complaining of shortness of breath Review of Systems - Review of Systems All systems: reviewed and no additional remarkable complaints except (shortness of breath) Past Patient History - Infectious Disease Hx of Infectious Diseases: None - Tetanus Immunizations Tetanus Immunization: Unknown - Past Medical History & Family History Past Medical History?: Yes - Past Social History Smoking Status: Current Some Days Smoker - CARDIAC Hx Atrial Fibrillation: Yes Hx Cardia Arrhythmia: Yes Hx Congestive Heart Failure: Yes Hx Hypercholesterolemia: Yes Hx Hypertension: Yes Hx Pacemaker: Yes - PULMONARY Hx Asthma: Yes Hx Chronic Obstructive Pulmonary Disease (COPD): Yes Hx Pneumonia: Yes - NEUROLOGICAL Hx Seizures: Yes - HEENT Hx HEENT Problems: No - RENAL Hx Chronic Kidney Disease: No - ENDOCRINE/METABOLIC Hx Diabetes Mellitus Type 2: Yes - HEMATOLOGICAL/ONCOLOGICAL Hx Blood Disorders: No - INTEGUMENTARY Hx Dermatological Problems: No Other/Comment: Rt. hand rashes - MUSCULOSKELETAL/RHEUMATOLOGICAL Hx Falls: Yes - GASTROINTESTINAL Hx Gastrointestinal Disorders: No - GENITOURINARY/GYNECOLOGICAL Hx Genitourinary Disorders: No - PSYCHIATRIC Hx Depression: Yes Hx Substance Use: Yes - SURGICAL HISTORY Hx Coronary Artery Bypass Graft: Yes Hx Coronary Stent: Yes (4) - ANESTHESIA Hx Anesthesia: Yes Hx Anesthesia Reactions: No Hx Malignant Hyperthermia: No Meds Allergies/Adverse Reactions: Allergies Allergy/AdvReac Type Severity Reaction Status Date / Time No Known Allergies Allergy Verified 09/16/16 08:54 - Medications Medications: Current Medications Acetaminophen (Tylenol 325mg Tab) 650 mg PO Q6 PRN PRN Reason: Pain, moderate (4-7) Albuterol/Ipratropium (Duoneb 3 Mg/0.5 Mg (3 Ml) Ud) 3 ml INH Q6 [facility] Aspirin (Ecotrin) 81 mg PO DAILY [facility] Last Admin: 09/16/16 10:25 Dose: 81 mg Carvedilol (Coreg) 3.125 mg PO BID [facility] Last Admin: 09/16/16 10:25 Dose: 3.125 mg Clopidogrel Bisulfate (Plavix) 75 mg PO DAILY [facility] Last Admin: 09/16/16 10:25 Dose: 75 mg Dicyclomine HCl (Bentyl) 20 mg PO Q6 PRN PRN Reason: ABDOMINAL CRAMPING Digoxin (Lanoxin) 0.25 mg PO 1400 [facility] Famotidine (Pepcid) 40 mg PO DAILY [facility] Folic Acid (Folic Acid) 1 mg PO DAILY [facility] Last Admin: 09/16/16 10:25 Dose: 1 mg Furosemide (Lasix) 40 mg PO DAILY [facility] Last Admin: 09/16/16 10:25 Dose: 40 mg Home Med (Umeclidinium [place] [Incruse Ellipta]) 1 inh INH DAILY [facility] Multivitamins/Vitamin C 10 ml/Thiamine HCl 100 mg/ Folic Acid 1 mg/ Sodium Chloride 1,011.2 mls @ 50 mls/hr IV [id number] ONE Stop: 09/16/16 22:05 Last Admin: 09/16/16 02:15 Dose: 50 mls/hr Azithromycin 500 mg/ Sodium (Chloride) 250 mls @ 250 mls/hr IVPB DAILY [facility] Insulin Human Regular (Novolin R) 0 unit SC ACHS [facility] PRN Reason: Protocol Last Admin: 09/16/16 11:45 Dose: 3 unit Levetiracetam (Keppra) 500 mg PO BID [facility] Last Admin: 09/16/16 10:25 Dose: 500 mg Losartan Potassium (Cozaar) 25 mg PO DAILY [facility] Last Admin: 09/16/16 10:25 Dose: 25 mg Metformin HCl (Glucophage) 500 mg PO BID [facility] Last Admin: 09/16/16 10:25 Dose: 500 mg Methylprednisolone (Solu-Medrol) 40 mg IVP Q8 [facility] Metoprolol Succinate (Toprol Xl) 50 mg PO DAILY [facility] Last Admin: 09/16/16 10:25 Dose: 50 mg Rosuvastatin Calcium (Crestor) 10 mg PO HS [facility] Fluticasone/Salmeterol (Advair Diskus 250/50) 1 puff INH RQ12 [facility] Last Admin: 09/16/16 07:47 Dose: Not Given Thiamine HCl (Vitamin B1 Tab) 100 mg PO DAILY [facility] Last Admin: 09/16/16 10:25 Dose: 100 mg Tiotropium [place] (Spiriva) 18 mcg INH RQ24 [facility] Tiotropium [place] (Spiriva Inhalation Handihaler Device) 1 inhaler INH ONCE ONE Stop: 09/16/16 12:56 Tiotropium [place] (Spiriva Inhalation Handihaler Device) 1 inhaler INH ONCE ONE Stop: 09/16/16 12:56 Zolpidem Tartrate (Ambien) 5 mg PO HS [facility] Physical Exam - Head Exam Head Exam: ATRAUMATIC, NORMOCEPHALIC - Eye Exam Eye Exam: Normal appearance - ENT Exam ENT Exam: Mucous Membranes Moist - Neck Exam Neck exam: Positive for: Normal Inspection - Respiratory Exam Respiratory Exam: Rhonchi, Wheezes - Cardiovascular Exam Cardiovascular Exam: REGULAR RHYTHM - GI/Abdominal Exam GI & Abdominal Exam: Normal Bowel Sounds - Extremities Exam Extremities exam: Positive for: normal inspection - Neurological Exam Neurological exam: Alert, Oriented x3 Results - Vital Signs Recent Vital Signs: Last Vital Signs Temp 98.0 F 09/16/16 06:30 Pulse 93 H 09/16/16 09:00 Resp 20 09/16/16 06:30 BP 143/79 09/16/16 10:25 Pulse Ox 2 L 09/16/16 09:00 - Labs Result Diagrams: 09/15/16 23:28 09/15/16 23:28 Labs: Laboratory Results - last 24 hr 09/16/16 09/16/16 09/16/16 01:17 07:40 11:20 PT 10.2 INR 0.9 APTT 27 POC Glucose (mg/dL) 165 H 299 H Assessment & Plan (1) Acute exacerbation of chronic obstructive pulmonary disease (COPD) Status: Acute Comment: IV steroids and nebulizer treatment. Continue present care. Pulmonary function test. Cardiology eval
[2016-09-16] MEDS: MethylPREDNISolone 40 mg Vial IVP SCH ×2 (13:13→21:44)
[2016-09-16] MEDS: Albuterol-Ipratrop 3 mg / 0.5 (3 ml) UD INH SCH ×2 (13:20→19:36)
[2016-09-16] MEDS: Azithromycin 500 MG in Sodium Chloride 0.9% 250 ML IVPB SCH (13:43)
[2016-09-16] MEDS ORDERED: Digoxin 250 mcg (0.25 mg) Tab PO SCH ×2 (14:00→18:00)
[2016-09-16 17:57] VITALS: PULSE 74
[2016-09-16] MEDS ORDERED: MethylPREDNISolone 40 mg Vial IVP SCH (22:00)
[2016-09-17] MEDS: Albuterol-Ipratrop 3 mg / 0.5 (3 ml) UD INH SCH ×2 (01:10→07:50)
[2016-09-17 01:50] VITALS: RESP 20
[2016-09-17] MEDS: MethylPREDNISolone 40 mg Vial IVP SCH (06:01)
--- NOTE | 2016-09-17 07:44 | CARD ---
APPROVED REPORT EKG Measurement Heart [id number] <Conclusion> Normal sinus rhythm Possible Inferior infarct, age undetermined Cannot rule out Anterior infarct, age undetermined Abnormal ECG
[2016-09-17] MEDS: Fluticasone-Salmeterol 250-50mcg Diskus INH SCH (07:50)
[2016-09-17] MEDS ORDERED: Tiotropium 18 mcg Cap For Inhalation INH SCH (08:00)
[2016-09-17 08:09] VITALS: PULSE 73; TEMP 97.6; O2SAT 97
[2016-09-17] MEDS: (Novolin R) Insulin Human Regular 100 units/ml vial SC SCH (08:29)
[2016-09-17] MEDS: Metoprolol Succinate 50 mg XL Tab PO SCH (09:10)
[2016-09-17 09:11] VITALS: BP 129/83
[2016-09-17] MEDS: Azithromycin 500 MG in Sodium Chloride 0.9% 250 ML IVPB SCH (09:11)
[2016-09-17] MEDS ORDERED: Azithromycin 500 MG in Sodium Chloride 0.9% 250 ML IVPB SCH (10:00)
[2016-09-17] MEDS ORDERED: UMECLIDINIUM BROMIDE INH SCH (10:00)
--- NOTE | 2016-09-17 10:53 | CP.PCM.PN ---
Subjective - Date & Time of Evaluation Date of Evaluation: 09/17/16 Time of Evaluation: 10:53 - Subjective Subjective: PT SIGNED AMA WITH [employer] RO[employer] SUPERVISOR, DR. ACUNA. METER MAINTENANCE PERSON SPOKE W PT THIS IS DR. SALCEDO'S PT. 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 DUE TO PT'S SEVERAL CHRONIC CONDITIONS AND RISK FOR COMPLICATIONS AND READMISSION, RX REFILLS GIVEN FOR HIS MEDS AND HE IS ENCOURAGED TO F/U WITH HIS PMD WITHIN SEVERAL DAYS. IF UNABLE TO AND IF SYMPTOMS RETURN/WORSEN, MAY RETURN TO ED. NO FURTHER ORDERS. Objective - Vital Signs/Intake and Output Vital Signs (last 24 hours): Temp Pulse Resp BP Pulse Ox 97.6 F 73 20 129/83 97 09/17/16 08:08 09/17/16 08:08 09/17/16 08:08 09/17/16 09:10 09/17/16 08:08 Intake and Output: 09/17/16 09/17/16 06:59 18:59 Intake Total 20 Output Total 1000 Balance -980 - Medications Medications: Current Medications Acetaminophen (Tylenol 325mg Tab) 650 mg PO Q6 PRN PRN Reason: Pain, moderate (4-7) Albuterol/Ipratropium (Duoneb 3 Mg/0.5 Mg (3 Ml) Ud) 3 ml INH RQ6 [facility] Last Admin: 09/17/16 07:50 Dose: Not Given Aspirin (Ecotrin) 81 mg PO DAILY [facility] Last Admin: 09/17/16 09:09 Dose: 81 mg Carvedilol (Coreg) 3.125 mg PO BID [facility] Last Admin: 09/17/16 09:10 Dose: 3.125 mg Clopidogrel Bisulfate (Plavix) 75 mg PO DAILY [facility] Last Admin: 09/17/16 09:10 Dose: 75 mg Dicyclomine HCl (Bentyl) 20 mg PO Q6 PRN PRN Reason: ABDOMINAL CRAMPING Digoxin (Lanoxin) 0.25 mg PO DAILY@1800 [facility] Last Admin: 09/16/16 17:56 Dose: 0.25 mg Famotidine (Pepcid) 40 mg PO DAILY [facility] Last Admin: 09/17/16 09:09 Dose: 40 mg Folic Acid (Folic Acid) 1 mg PO DAILY [facility] Last Admin: 09/17/16 09:10 Dose: 1 mg Furosemide (Lasix) 40 mg PO DAILY [facility] Last Admin: 09/17/16 09:10 Dose: 40 mg Home Med (Umeclidinium [place] [Incruse Ellipta]) 1 inh INH DAILY [facility] Azithromycin 500 mg/ Sodium (Chloride) 250 mls @ 250 mls/hr IVPB DAILY [facility] Last Admin: 09/17/16 09:11 Dose: Not Given Insulin Human Regular (Novolin R) 0 unit SC ACHS [facility] PRN Reason: Protocol Last Admin: 09/17/16 08:29 Dose: 2 unit Levetiracetam (Keppra) 500 mg PO BID [facility] Last Admin: 09/17/16 09:09 Dose: 500 mg Losartan Potassium (Cozaar) 25 mg PO DAILY [facility] Last Admin: 09/17/16 09:09 Dose: 25 mg Metformin HCl (Glucophage) 500 mg PO BID [facility] Last Admin: 09/17/16 09:10 Dose: 500 mg Methylprednisolone (Solu-Medrol) 40 mg IVP Q8 [facility] Last Admin: 09/17/16 06:01 Dose: 40 mg Metoprolol Succinate (Toprol Xl) 50 mg PO DAILY [facility] Last Admin: 09/17/16 09:10 Dose: 50 mg Rosuvastatin Calcium (Crestor) 10 mg PO HS [facility] Last Admin: 09/16/16 21:43 Dose: 10 mg Fluticasone/Salmeterol (Advair Diskus 250/50) 1 puff INH RQ12 [facility] Last Admin: 09/17/16 07:50 Dose: Not Given Thiamine HCl (Vitamin B1 Tab) 100 mg PO DAILY [facility] Last Admin: 09/17/16 09:11 Dose: 100 mg Tiotropium [place] (Spiriva) 18 mcg INH RQ24 [facility] Last Admin: 09/17/16 07:50 Dose: Not Given Zolpidem Tartrate (Ambien) 5 mg PO HS [facility] Last Admin: 09/16/16 21:43 Dose: 5 mg - Labs Labs: PT 10.2 SECONDS (9.7-12.2) 09/16/16 01:17 INR 0.9 09/16/16 01:17 APTT 27 SECONDS (21-34) 09/16/16 01:17
--- NOTE | 2016-09-17 23:59 | CP.PCM.DIS ---
Provider - Provider Date of Admission: 09/16/16 00:15 Attending physician: Lonny Kingston MD Time Spent in preparation of Discharge (in minutes): 25 Hospital Course - Lab Results Lab Results: Most Recent Lab Values WBC 7.1 K/uL (4.8-10.8) 09/15/16 23: RBC 4.32 Mil/uL (4.40-5.90) L 09/15/16 23: Hgb 13.2 g/dL (12.0-18.0) 09/15/16 23: Hct 41.3 % (35.0-51.0) 09/15/16 23: MCV 95.6 fL (80.0-94.0) H D 09/15/16 23: MCH 30.5 pg (27.0-31.0) 09/15/16 23: MCHC 31.9 g/dL (33.0-37.0) L 09/15/16: RDW 15.8 % (11.5-14.5) H 09/15/16: Plt Count 201 K/uL (130-400) 09/15/16: MPV 9.9 fL (7.2-11.7) 09/15/16: Neut % (Auto) 45.9 % (50.0-75.0) L 09/15/16: Lymph % (Auto) 32.3 % (20.0-40.0) 09/15/16: [place] % (Auto) 17.4 % (0.0-10.0) H 09/15/16: Eos % (Auto) 3.1 % (0.0-4.0) 09/15/16: Baso % (Auto) 1.3 % (0.0-2.0) 09/15/16: Neut # 3.2 K/uL (1.8-7.0) 09/15/16: Lymph # 2.3 K/uL (1.0-4.3) 09/15/16 23: Towner # 1.2 K/uL (0.0-0.8) H 09/15/16 23:28 Eos # 0.2 K/uL (0.0-0.7) 09/15/16 23:28 Baso # 0.1 K/uL (0.0-0.2) 09/15/16 23:28 PT 10.2 SECONDS (9.7-12.2) 09/16/16 01:17 INR 0.9 09/16/16 01:17 APTT 27 SECONDS (21-34) 09/16/16 01:17 Sodium 141 mmol/L (132-148) 09/15/16 23:28 Potassium 3.8 mmol/L (3.6-5.2) 09/15/16 23:28 Chloride 102 mmol/L (98-107) 09/15/16 23:28 Carbon Dioxide 26 mmol/L (22-30) 09/15/16 23: Anion Gap 18 (10-20) 09/15/16 23:28 BUN 6 mg/dL (9-20) L 09/15/16 23: Creatinine 0.7 MG/DL (0.8-1.5) L 09/15/16 23:28 Est GFR ( Amer) > 60 09/15/16 23:28 Est GFR (Non-Af Amer) > 60 09/15/16 23:28 POC Glucose (mg/dL) 239 mg/dL (65-110) H 09/17/16 06:42 Random Glucose 110 mg/dL (75-110) 09/15/16 23:28 Calcium 8.1 mg/dl (8.6-10.4) L 09/15/16 23: Magnesium 1.7 mg/dL (1.6-2.3) 09/15/16 23: Total Bilirubin 0.7 mg/dL (0.2-1.3) 09/15/16 23:28 AST 334 U/L (17-59) H D 09/15/16 23:28 ALT 258 U/L (21-72) H D 09/15/16 23:28 Alkaline Phosphatase 246 U/L (38-126) H 09/15/16 23:28 Troponin I 0.0660 ng/mL (0.00-0.120) 09/15/16 23:28 NT-Pro-B Natriuret Pep 491 pg/mL (0-900) 09/15/16 23: Total Protein 6.3 g/dL (6.3-8.3) 09/15/16 23:28 Albumin 3.5 g/dL (3.5-5.0) 09/15/16 23:28 Globulin 2.8 gm/dL (2.2-3.9) 09/15/16 23:28 Albumin/Globulin Ratio 1.2 (1.0-2.1) 09/15/16 23:28 Digoxin 1.1 ng/mL (0.8-2.0) 09/15/16 23:28 Alcohol, Quantitative 274 mg/dl (0-10) H 09/15/16 23:28 - Hospital Course Hospital Course: PT SIGNED AMA WITH CHIEF RELAY TESTER, DR. ACUNA. EXCELLENCE COACH SPOKE W PT THIS IS DR. KINGSTON'S PT. 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 DUE TO PT'S SEVERAL CHRONIC CONDITIONS AND RISK FOR COMPLICATIONS AND READMISSION, RX REFILLS GIVEN FOR HIS MEDS AND HE IS ENCOURAGED TO F/U WITH HIS PMD WITHIN SEVERAL DAYS. IF UNABLE TO AND IF SYMPTOMS RETURN/WORSEN, MAY RETURN TO ED. NO FURTHER ORDERS. Discharge Exam - Head Exam Head Exam: ATRAUMATIC, NORMOCEPHALIC - Eye Exam Eye Exam: Normal appearance - ENT Exam ENT Exam: Mucous Membranes Moist - Cardiovascular Exam Cardiovascular Exam: REGULAR RHYTHM, +S1, +S2 - GI/Abdominal Exam GI & Abdominal Exam: Normal Bowel Sounds Discharge Plan - Discharge Medications Prescriptions: Fluticasone/Salmeterol 250/50 [Advair Diskus 250/50] 1 puff INH RQ12 #1 puff Zolpidem [Ambien] 5 mg PO DAILY PRN #10 PRN Reason: Insomnia Dicyclomine [Bentyl] 20 mg PO Q6 PRN #12 tab PRN Reason: ABDOMINAL CRAMPING Carvedilol [Coreg] 3.125 mg PO BID #60 tab Losartan [Cozaar] 25 mg PO DAILY #30 Aspirin [Ecotrin] 81 mg PO DAILY #30 tabec Folic Acid 1 mg PO DAILY #30 tab metFORMIN [glucOPHAGE] 500 mg PO BID #60 Umeclidinium [place] [Incruse Ellipta] 1 inh INH DAILY #1 actuation levETIRAcetam [Keppra] 500 mg PO BID #60 Digoxin [Lanoxin] 0.25 mg PO 1400 #30 tab Furosemide [Lasix] 40 mg PO DAILY #30 Methylprednisolone [Medrol Dose Pack (21 tabs)] 4 mg PO DAILY #21 mg Famotidine [Pepcid] 40 mg PO DAILY #30 tab Clopidogrel [Plavix] 75 mg PO DAILY 30 Days Simvastatin 40 mg PO DAILY #30 Thiamine Mononitrate [Vitamin B-1] 100 mg PO DAILY #30 Azithromycin [Zithromax] 250 mg PO DAILY #4 tab - Follow Up Plan Condition: GUARDED Disposition: AGAINST MEDICAL ADVICE
--- NOTE | 2016-10-25 22:41 | DS ---
The patient is a 56-year-old male. The patient was admitted on 09/15/[address] Lonny Kingston on 09/17/2016. The patient was never seen and examined by me. Dr. Lonny Kingston will do H&P. Angy Crouch MD
== END 2016-09-17 11:02 | disposition left against medical advice (07) ==
LOC: C.ER 22:23 → INTOOBSV 09-16 00:15 → C.9E 09-16 00:15 → C.6T 09-16 05:59
PROVIDERS: ADMIT Internal Medicine; ATTEND Internal Medicine
DX: J44.1 Chronic obstructive pulmonary disease with (acute) exacerbation (principal); I11.0 Hypertensive heart disease with heart failure; I50.9 Heart failure, unspecified; F32.9 Major depressive disorder, single episode, unspecified; G40.909 Epilepsy, unspecified, not intractable, without status epilepticus; I48.91 Unspecified atrial fibrillation; F11.10 Opioid abuse, uncomplicated; F14.10 Cocaine abuse, uncomplicated; J45.909 Unspecified asthma, uncomplicated; E78.00 Pure hypercholesterolemia, unspecified; F10.120 Alcohol abuse with intoxication, uncomplicated; Z95.0 Presence of cardiac pacemaker; Z95.1 Presence of aortocoronary bypass graft; F17.210 Nicotine dependence, cigarettes, uncomplicated; Y90.8 Blood alcohol level of 240 mg/100 ml or more; E78.5 Hyperlipidemia, unspecified; Z91.14 Patient's other noncompliance with medication regimen; E11.9 Type 2 diabetes mellitus without complications; Z79.4 Long term (current) use of insulin
CPT/HCPCS: 71010; 80053; 80162; 80320; 82948; 83735; 83880; 84484; 85025; 85610; 85730; 93005; 94640; 96374; 99285; G0378; J0456; J2920; J2930; J3411; J3475; J7040; J7050

== ENCOUNTER 2016-10-19 10:47 | Inpatient (IN) | payer OTHER ==
[2016-10-19 10:55] VITALS: BMI 25.8
[2016-10-19] MEDS ORDERED: Magnesium Sulfate 1 gm in D5W 2 GM/200 ML BAG IVPB ONE (11:19)
[2016-10-19 11:28] LABS: CHLORIDE 99 mmol/L (98-107); POTASSIUM 3.9 mmol/L (3.6-5.2); SODIUM 135 mmol/L (132-148)
[2016-10-19 11:28] LABS: VENOUS BLOOD GAS PCO2 36 mmHg (40-60)
[2016-10-19 11:30] LABS: ALKALINE PHOSPHATASE 270 U/L (38-126); AST/SGOT 325 U/L (17-59); BILIRUBIN,TOTAL 0.9 mg/dL (0.2-1.3); CARBON DIOXIDE 23 mmol/L (22-30); GFR AFRICAN-AMERICAN > 60; TOTAL PROTEIN 6.8 g/dL (6.3-8.3)
[2016-10-19 11:31] LABS: ALCOHOL SERUM 91 mg/dl (0-10); ALT/SGPT 267 U/L (21-72); BLOOD UREA NITROGEN 9 mg/dL (9-20); CALCIUM 8.4 mg/dl (8.6-10.4); GLUCOSE,RANDOM 126 mg/dL (75-110); MAGNESIUM 1.6 mg/dL (1.6-2.3); PHOSPHOROUS 3.1 mg/dL (2.5-4.5)
[2016-10-19] MEDS: Magnesium Sulfate 1 gm in D5W 1 GM/100 ML BAG IVPB SCH ×2 (11:33→11:53)
[2016-10-19 11:34] LABS: BASO # 0.1 K/uL (0.0-0.2); BASO % 0.8 % (0.0-2.0); EOS % 0.3 % (0.0-4.0); HEMATOCRIT 41.4 % (35.0-51.0); LYMPH # 2.4 K/uL (1.0-4.3); LYMPH % 19.9 % (20.0-40.0); MEAN CORPUSCULAR HEMOGLOBIN 29.6 pg (27.0-31.0); MEAN CORPUSCULAR HGB CONC 32.2 g/dL (33.0-37.0); MEAN PLATELET VOLUME 9.2 fL (7.2-11.7); MONO # 1.7 K/uL (0.0-0.8); MONO % 14.1 % (0.0-10.0); NRBC % 0.1 % (0.0-2.0)
[2016-10-19 11:38] LABS: MEAN CELL VOLUME 91.8 fL (80.0-94.0); WHITE BLOOD COUNT 11.9 K/uL (4.8-10.8)
[2016-10-19 12:06] LABS: ABG MECHANICAL RATE 12; ARTERIAL BLOOD HGB O2 SAT 94.6 % (95.0-98.0); CARBOXYHEMOGLOBIN 3.2 % (0.5-1.5); DRAW SITE RB; HHB 0.3 % (0.0-5.0); METHEMOGLOBIN 1.9 % (0.0-3.0)
[2016-10-19] MEDS ORDERED: Digoxin 500 mcg/2ml (0.5 mg/2ml) Inj IVP ONE (12:23)
[2016-10-19] MEDS ORDERED: Digoxin 500 mcg/2ml (0.5 mg/2ml) Inj ONE (12:31)
[2016-10-19 12:37] LABS: RBC URINE < 1 /hpf (0-3); URINE BILIRUBIN NEGATIVE (NEGATIVE); URINE BLOOD NEGATIVE (NEGATIVE); URINE COLOR Amber (YELLOW); URINE GLUCOSE (UA) NORMAL (Normal); URINE KETONE 1+ mg/dL (NEGATIVE); URINE LEUKOCYTE ESTERASE NEG Leu/uL (Negative); URINE PROTEIN 1+ mg/dL (NEGATIVE); WBC URINE 2 /hpf (0-5)
--- NOTE | 2016-10-19 12:48 | RAD ---
HISTORY: chest pain COMPARISON: Chest x-ray performed 09/15/16 TECHNIQUE: Chest, one view. FINDINGS: Examination limited by habitus. LUNGS: Mild pulmonary venous congestion. Right hilar prominence. PLEURA: No significant pleural effusion identified. No definite pneumothorax . CARDIOVASCULAR: Median sternotomy wires with evidence of CABG. Single lead left-sided AICD. Cardiomegaly. OSSEOUS STRUCTURES: No acute osseous abnormality identified. VISUALIZED UPPER ABDOMEN: Unremarkable. OTHER FINDINGS: None. IMPRESSION: Mild pulmonary venous congestion. Right hilar prominence. Median sternotomy wires with evidence of CABG. Single lead left-sided AICD. Cardiomegaly.
--- NOTE | 2016-10-19 14:41 | C.PDOC ---
History Of Present Illness 56 y/o male brought to ED by ALS with complaints of chest pain and sob. Patient was found in rapid A-fib with heart rate in 180s and diffuse wheezing bilaterally. Patient was started on Duoneb and 20mg IV push of Cardizem [employer]. Patient states he occasionally drinks ETOH and reports not taking medications today. Patient denies fever, cough, recent travel or any other complaints at this time. Time Seen by Provider: 10/19/16 11:07 Chief Complaint (Nursing): Chest Pain History Per: Patient History/Exam Limitations: no limitations Onset/Duration Of Symptoms: Hrs Current Symptoms Are (Timing): Still Present Past Medical History Reviewed: Historical Data, Nursing Documentation, Vital Signs Vital Signs: Last Vital Signs Temp 98 F 10/19/16 15:59 Pulse 83 10/19/16 15:59 Resp 20 10/19/16 15:59 BP 119/71 10/19/16 15:59 Pulse Ox 99 10/19/16 18:08 - Medical History PMH: Asthma, Atrial Fibrillation, Back Problems, Cardia Arrhythmia, CHF, COPD, Depression, HTN, Hypercholesterolemia, Pneumonia, Seizures Surgical History: CABG, Coronary Stent (4), Pacemaker - [facility] Procedures CORONAR ARTERIOGR-2 CATH (06/24/14) CORONARY ARTERY STENT INSERTION [id number] (06/24/14) INFLUENZA VACCINATION (04/25/14) INSERTION OF ONE VASCULAR STENT (06/24/14) INTRODUCE OF OTH THERAP SUBST INTO RESP TRACT, VIA OPENING (06/19/15) INTRODUCTION OF SERUM/TOX/VACCINE INTO MUSCLE, PERC APPROACH (01/05/16) LEFT HEART CARDIAC CATH (06/24/14) NEBULIZER THERAPY (07/12/14) PERCUTANEOUS TRANSLUMINAL CORONARY ANGIOPLASTY [PTCA] (06/24/14) PROCEDURE ON SINGLE VESSEL (06/24/14) VACCINATION NEC (04/25/14) Family History: States: No Known Family Hx, Diabetes - Social History Hx Tobacco Use: Yes Hx Alcohol Use: Yes (4-5 cans of beer twice a week) Hx Substance Use: No - Immunization History Hx Tetanus Toxoid Vaccination: No Hx Influenza Vaccination: No Hx Pneumococcal Vaccination: No Review Of Systems Constitutional: Negative for: Fever, Chills Cardiovascular: Positive for: Chest Pain Respiratory: Positive for: Shortness of Breath. Negative for: Cough Gastrointestinal: Negative for: Nausea, Vomiting Skin: Negative for: Rash Physical Exam - Physical Exam Appears: Other (Moderate distress) Skin: Normal Color, Warm, No Rash Head: Atraumatic, Normacephalic Eye(s): bilateral: Normal Inspection Oral Mucosa: Moist Neck: Normal ROM Chest: Symmetrical Cardiovascular: Rhythm Irregular, Other (Tachycardic) Respiratory: No Rales, No Rhonchi, Wheezing (Diffuse bilaterally) Gastrointestinal/Abdominal: Soft, No Tenderness, No Guarding, No Rebound Extremity: Pedal Edema (Trace), No Deformity, No Swelling Neurological/Psych: Oriented x3, Normal Speech ED Course And Treatment - Laboratory Results Result Diagrams: 10/19/16 11:13 10/19/16 11:13 ECG: Interpreted By Me, Viewed By Me ECG Rhythm: Atrial Fibrillation, PVC Rate From EC (bpm) O2 Sat by Pulse Oximetry: 99 (RA) Pulse Ox Interpretation: Normal Critical Care Time - Critical Care Note Total Time (in mins): 90 Documented critical care: time excludes all time spent performing seperately billable procedures. Medical Decision Making Medical Decision Making: Progress: * Patient immediately put on bipap, given Solumedrol and 1 nebulizer given, 2g of Magnesium given after period of time bipap * Lungs became clear and patient denies sob, bipap removed\ * Patient persistently continued tachycardic, given 2 dose Cardizem (20 mg IV push), Digoxin (25mg IV push) * Patient currently in 110s heart rate * Med position classification specialist Dr. Burkett reviewed case and agreed to admit to his service in Telemetry Critical Time : 90 mins Disposition - Disposition Disposition: HOSPITALIZED Disposition Time: 13:40 Condition: FAIR - Clinical Impression Clinical Impression: Chest pain, COPD exacerbation, Atrial fibrillation with RVR - PA / SIDER MECHANIC / Resident Statement MD/DO has examined the patient and agrees with the treatment plan. - Scribe Statement The provider has reviewed the documentation as recorded by the Lesli Hinds All medical record entries made by the Scribshahana were at my direction and personally dictated by me. I have reviewed the chart and agree that the record accurately reflects my personal performance of the history, physical exam, medical decision making, and the department course for this patient. I have also personally directed, reviewed, and agree with the discharge instructions and disposition.
--- NOTE | 2016-10-19 15:34 | CP.PCM.PN ---
Subjective - Date & Time of Evaluation Date of Evaluation: 10/19/16 Time of Evaluation: 14:00 - Subjective Subjective: CC: "my inhaler isn't working and my heart is beating fast" HPI: This 56 y/o male with PMHx of CAD w CABG 15 years ago, asplenia, CHF w/ defibrillator, COPD not on home O2, seizure disorder, HTN, HLD, polysubstance abuse (etoh, crack, and opiods), DM on metformin, who is chronically medically non compliant - was brought to ED by ALS with complaints of chest pain and sob since this morning. He woke up with SOB, dizziness and non-radiating chest pain at the mid-sternum. It lasted 5 minutes and he rated it a 7/10. He reports prior episodes of chest pain, but none that felt like this. He attempted his albuterol inhaler several times, along with his Advair inhaler, without relief of the chest pain or SOB. Shortly after, he attempted to walk his friend to the store, and developed palpitations. He fell, and bystanders called EMS, who found him and placed him on non-rebreather mask. Patient admits he typically walks 1 block before becoming SOB, and sleeps with 2-3 pillows at night. Patient states he occasionally drinks ETOH and reports not taking medications today. He reports he has been compliant with his medications for several weeks, and last took them yesterday. He denies any sick contacts or recent travel at this time. In the ED, he was found in rapid A-fib with heart rate in 180s and diffuse wheezing bilaterally. Patient was started on Duoneb and 20mg IV push of Cardizem. PMHx: CAD w CABG 15 years ago, asplenia, CHF w/ defibrillator, COPD not on home O2, seizure disorder, HTN, HLD, DM on metformin PSHx: CABG, AICD (L sided, single lead) Meds: see EMR Allergies: NKDA FamHx: Mom of [place]; Dad of stroke SocHx: Tobacco 1.5PPD x30 years. Currently 3-5 cigarettes/day. ETOH (frequently , did not quantify). Hx of crack + opiods (has not used for several months) PMD: Dr. Foster Review of Systems: -Gen: denies fever, chills, headache, lethargy, weakness. -HEENT: denies dizziness, change in vision, change in hearing, sore throat, dysphagia, nasal congestion, mucous. -Cardio: +palpitations, +lower extremity edema, +orthopnea; denies chest pain (felt chest pain in AM). -Resp: +cough, +dyspnea, +mild pain on inspiration; denies hemoptysis, wheezing. -GI: pt denies abdominal pain, nausea/vomiting, diarrhea/constipation, hematochezia, hematemesis. -: pt denies dysuria, urinary freq, incontinence, hematuria, change in urinary stream. -MSK: denies back pain, muscle weakness, radiating pain. -Skin: denies itching, rash, lesions. -Neuro: denies confusion, numbness, tingling, focal weakness, radicular pain, syncope. -Psych: denies anxiety, depression, H/I, S/I, hallucinations. Objective - Vital Signs/Intake and Output Vital Signs (last 24 hours): Temp Pulse Resp BP Pulse Ox 99.4 F 94 H 20 118/70 99 10/19/16 10:56 10/19/16 14:10 10/19/16 14:10 10/19/16 14:10 10/19/16 14:54 - Medications Medications: Current Medications Albuterol Sulfate (Albuterol 0.042% Inhal Hedy (1.25mg/3ml) Ud) 1.25 mg INH RQ6 PRN PRN Reason: Shortness of Breath Aspirin (Ecotrin) 81 mg PO DAILY [facility] Carvedilol (Coreg) 3.125 mg PO BID [facility] Clopidogrel Bisulfate (Plavix) 75 mg PO DAILY [facility] Dicyclomine HCl (Bentyl) 20 mg PO DAILY [facility] Digoxin (Lanoxin) 0.25 mg PO DAILY [facility] Enoxaparin Sodium (Lovenox) 77 mg SC Q12 [facility] Stop: 10/29/16 22:01 Famotidine (Pepcid) 20 mg PO BID [facility] Folic Acid (Folic Acid) 1 mg PO DAILY [facility] Furosemide (Lasix) 40 mg PO DAILY [facility] Levetiracetam (Keppra) 500 mg PO BID [facility] Losartan Potassium (Cozaar) 25 mg PO DAILY [facility] Metformin HCl (Glucophage) 500 mg PO BID [facility] Methylprednisolone (Medrol) 4 mg PO DAILY [facility] Fluticasone/Salmeterol (Advair Diskus 250/50) 1 puff IH RBID [facility] Thiamine HCl (Vitamin B1 Tab) 100 mg PO DAILY [facility] Zolpidem Tartrate (Ambien) 5 mg PO HS [facility] - Additional Findings Additional findings: - Head Exam Head Exam: ATRAUMATIC, NORMAL INSPECTION - Eye Exam Eye Exam: EOMI, Normal appearance - ENT Exam ENT Exam: Mucous Membranes Moist - Neck Exam Neck exam: Positive for: Full Rom. Negative for: Lymphadenopathy - Respiratory Exam Respiratory Exam: Wheezes (mild, R lung field), NORMAL BREATHING PATTERN. absent: Accessory Muscle Use, Clear to Auscultation Bilateral, Rales, Rhonchi, Respiratory Distress - Cardiovascular Exam Cardiovascular Exam: Tachycardia, +S1, +S2. absent: Rubs - GI/Abdominal Exam GI & Abdominal Exam: Normal Bowel Sounds, Soft. absent: Tenderness - Rectal Exam Rectal Exam: Deferred - Extremities Exam Extremities exam: Pedal Edema (1+ pitting to mid shane). Negative for: calf tenderness - Back Exam Back exam: absent: CVA tenderness (L), CVA tenderness (R) - Neurological Exam Neurological exam: Alert, CN II-XII Intact Additional comments: patient does not seem intoxicated. - Psychiatric Exam Psychiatric exam: Normal Affect, Normal Mood - Skin Skin Exam: Dry, Intact Assessment and Plan - Assessment and Plan (Free Text) Assessment: Chest Pain r/o ACS - First Trop negative. F/u JADE/EKG x2 - Atrial Fibrillation - first episode, denies prior episodes or palpitations in the past. Likely due to repetitive use of albuterol and advair diskus prior to admission. - Cardiology consult, Dr. Greer, f/u recs - f/u Echo - Therapeutic lovenox started - Digoxin 0.25mg (home med, however patient does not recall taking regularly) - f/u TSH, free T4, A1c, FLP EtOH Withdrawal/Polysubstance Abuse - Patient did not display evidence of intoxication on admission, however +Tox for Alcohol-91 and +Cannabinoids - banana bag x1 - ativan PRN - multivitamins - CIWA protocol COPD exacerbation - patient repetitively used albutarol and advair diskus prior to admission, without relief - Low dose albuterol breathing treatments - c/w home meds - BiPAP FiO2 50, rate 12, 10/5 Seizure Disorder - Continue Keppra (home med) - patient previously noted to have pseudo-seizures CHF - Continue Lasix 40mg PO qd (home med) - Pro BNP 1330 - f/u echo Hypertension - Continue Losartan + Coreg Hyperlipidemia - Continue home med: plavix Diabetes - continue Metformin 500mg PO BID - f/u A1c Asplenia - patient will need immunizations before discharge Proph SCDs Pepcid heart healthy diet
[2016-10-19] MEDS: Albuterol 0.042% Inhal Sol (1.25 mg/3 mL) UD INH PRN (19:36)
[2016-10-19] MEDS: Fluticasone-Salmeterol 250-50mcg Diskus IH SCH (19:36)
[2016-10-19] MEDS: Enoxaparin 80 mg Syringe SC SCH (21:27)
[2016-10-19] MEDS ORDERED: Multivitamin (MVI) 10 ML, Thiamine 100 MG, Folic Acid 1 MG in Sodium Chloride 0.9% 1,00... IV ONE (21:27)
--- NOTE | 2016-10-19 22:17 | CP.PCM.CON ---
Past Patient History - Infectious Disease Hx of Infectious Diseases: None - Tetanus Immunizations Tetanus Immunization: Unknown - Past Medical History & Family History Past Medical History?: Yes - Past Social History Smoking Status: Light Smoker < 10 Cigarettes Daily - CARDIAC Hx Atrial Fibrillation: Yes Hx Cardia Arrhythmia: Yes Hx Congestive Heart Failure: Yes Hx Hypercholesterolemia: Yes Hx Hypertension: Yes Hx Pacemaker: Yes - PULMONARY Hx Asthma: Yes Hx Chronic Obstructive Pulmonary Disease (COPD): Yes Hx Pneumonia: Yes - NEUROLOGICAL Hx Seizures: Yes - HEENT Hx HEENT Problems: No - RENAL Hx Chronic Kidney Disease: No - ENDOCRINE/METABOLIC Hx Endocrine Disorders: Yes Hx Diabetes Mellitus Type 2: Yes - HEMATOLOGICAL/ONCOLOGICAL Hx Blood Disorders: No - INTEGUMENTARY Hx Dermatological Problems: No - MUSCULOSKELETAL/RHEUMATOLOGICAL Hx Musculoskeletal Disorders: Yes Hx Falls: Yes - GASTROINTESTINAL Hx Gastrointestinal Disorders: No - GENITOURINARY/GYNECOLOGICAL Hx Genitourinary Disorders: No - PSYCHIATRIC Hx Depression: Yes Hx Substance Use: No - SURGICAL HISTORY Hx Coronary Artery Bypass Graft: Yes Hx Coronary Stent: Yes (4) - ANESTHESIA Hx Anesthesia: Yes Hx Anesthesia Reactions: No Hx Malignant Hyperthermia: No Meds Allergies/Adverse Reactions: Allergies Allergy/AdvReac Type Severity Reaction Status Date / Time No Known Allergies Allergy Verified 09/16/16 08:54 - Medications Medications: Current Medications Albuterol Sulfate (Albuterol 0.042% Inhal Hedy (1.25mg/3ml) Ud) 1.25 mg INH RQ6 PRN PRN Reason: Shortness of Breath Last Admin: 10/19/16 19:36 Dose: 1.25 mg Aspirin (Ecotrin) 81 mg PO DAILY [facility] Carvedilol (Coreg) 3.125 mg PO BID [facility] Last Admin: 10/19/16 18:36 Dose: 3.125 mg Clopidogrel Bisulfate (Plavix) 75 mg PO DAILY [facility] Dicyclomine HCl (Bentyl) 20 mg PO DAILY [facility] Digoxin (Lanoxin) 0.25 mg PO DAILY [facility] Enoxaparin Sodium (Lovenox) 77 mg SC Q12 [facility] Stop: 10/29/16 22:01 Last Admin: 10/19/16 21:27 Dose: Not Given Famotidine (Pepcid) 20 mg PO BID [facility] Last Admin: 10/19/16 18:36 Dose: 20 mg Folic Acid (Folic Acid) 1 mg PO DAILY [facility] Furosemide (Lasix) 40 mg PO DAILY [facility] Multivitamins/Vitamin C 10 ml/Thiamine HCl 100 mg/ Folic Acid 1 mg/ Sodium Chloride 1,011.2 mls @ 100 mls/hr IV .Q10H7M ONE Stop: 10/20/16 07:33 Levetiracetam (Keppra) 500 mg PO BID [facility] Last Admin: 10/19/16 18:36 Dose: 500 mg Lorazepam (Ativan) 1 mg IVP Q6H PRN PRN Reason: Seizure activity Losartan Potassium (Cozaar) 25 mg PO DAILY [facility] Metformin HCl (Glucophage) 500 mg PO BID [facility] Last Admin: 10/19/16 18:36 Dose: 500 mg Methylprednisolone (Medrol) 4 mg PO DAILY [facility] Fluticasone/Salmeterol (Advair Diskus 250/50) 1 puff IH RBID [facility] Last Admin: 10/19/16 19:36 Dose: 1 puff Thiamine HCl (Vitamin B1 Tab) 100 mg PO DAILY [facility] Zolpidem Tartrate (Ambien) 5 mg PO HS [facility] Last Admin: 10/19/16 21:27 Dose: 5 mg Results - Vital Signs Recent Vital Signs: Last Vital Signs Temp 98 F 10/19/16 15:59 Pulse 84 10/19/16 18:35 Resp 20 10/19/16 15:59 BP 132/86 10/19/16 18:35 Pulse Ox 99 10/19/16 18:09 - Labs Result Diagrams: 10/19/16 11:13 10/19/16 11:13 Labs: Laboratory Results - last 24 hr 10/19/16 19:46 Total Creatine Kinase 78 CK-MB (Mass) 3.33 Troponin I, Quant 0.0510
[2016-10-20] MEDS: Fluticasone-Salmeterol 250-50mcg Diskus IH SCH (07:47)
[2016-10-20] MEDS: Albuterol 0.042% Inhal Sol (1.25 mg/3 mL) UD INH PRN (07:54)
[2016-10-20 08:13] LABS: BASO % 0.4 % (0.0-2.0); HEMATOCRIT 39.6 % (35.0-51.0); LYMPH # 0.7 K/uL (1.0-4.3); LYMPH % 5.3 % (20.0-40.0); MEAN CORPUSCULAR HEMOGLOBIN 30.2 pg (27.0-31.0); MEAN CORPUSCULAR HGB CONC 32.8 g/dL (33.0-37.0); MEAN PLATELET VOLUME 9.8 fL (7.2-11.7); MONO # 2.4 K/uL (0.0-0.8); MONO % 18.9 % (0.0-10.0); NRBC % 0.1 % (0.0-2.0); PLATELET COUNT 273 K/uL (130-400); RED CELL DISTRIBUTION WIDTH 15.9 % (11.5-14.5); WHITE BLOOD COUNT 12.5 K/uL (4.8-10.8)
[2016-10-20 08:18] LABS: CHLORIDE 100 mmol/L (98-107); SODIUM 135 mmol/L (132-148)
[2016-10-20 08:19] LABS: POTASSIUM 4.3 mmol/L (3.6-5.2)
[2016-10-20 08:20] LABS: CHOLESTEROL 197 mg/dL (0-199); GFR AFRICAN-AMERICAN > 60
[2016-10-20 08:21] LABS: ALB/GLOB RATIO 0.9 (1.0-2.1); ALKALINE PHOSPHATASE 224 U/L (38-126); ALT/SGPT 192 U/L (21-72); AST/SGOT 138 U/L (17-59); BILIRUBIN,TOTAL 0.7 mg/dL (0.2-1.3); BLOOD UREA NITROGEN 10 mg/dL (9-20); CALCIUM 8.9 mg/dl (8.6-10.4); CARBON DIOXIDE 27 mmol/L (22-30); GLUCOSE,RANDOM 154 mg/dL (75-110); PHOSPHOROUS 3.2 mg/dL (2.5-4.5); TOTAL PROTEIN 6.1 g/dL (6.3-8.3)
[2016-10-20 08:50] LABS: THYROID STIMULATING HORMONE 1.83 mIU/L (0.46-4.68)
[2016-10-20 09:18] LABS: TOTAL CELLS COUNTED 100
[2016-10-20 09:19] LABS: NEUTROPHIL 68 % (50-75)
[2016-10-20 09:20] LABS: GIANT PLATELETS PRESENT; LARGE PLATELETS PRESENT
[2016-10-20] MEDS: Digoxin 250 mcg (0.25 mg) Tab PO SCH (10:20)
[2016-10-20] MEDS: Enoxaparin 80 mg Syringe SC SCH ×2 (10:22→21:39)
--- NOTE | 2016-10-20 14:08 | CP.PCM.PN ---
Subjective - Date & Time of Evaluation Date of Evaluation: 10/20/16 Time of Evaluation: 09:25 - Subjective Subjective: Medicine progress note for Dr. Burkett: Patient seen and examined. Patient states he feels fatigued. Patient states he is not having chest pain currently and feels slightly better. Patient admits he needs to quit drinking and start to be compliant with his medications. Patient states he used a nebulizer in the past but has not had albuterol for it recently and has only been using an inhaler. Patient's PMD is Dr. Foster, and states he last saw him a month ago. Objective - Vital Signs/Intake and Output Vital Signs (last 24 hours): Temp Pulse Resp BP Pulse Ox 97.7 F 84 18 133/91 H 98 10/20/16 07:35 10/20/16 10:13 10/20/16 07:35 10/20/16 10:20 10/20/16 07:35 Intake and Output: 10/20/16 10/20/16 06:59 18:59 Intake Total 890 Balance 890 - Medications Medications: Current Medications Albuterol Sulfate (Albuterol 0.042% Inhal Hedy (1.25mg/3ml) Ud) 1.25 mg INH RQ6 PRN PRN Reason: Shortness of Breath Last Admin: 10/20/16 07:54 Dose: 1.25 mg Aspirin (Ecotrin) 81 mg PO DAILY [facility] Last Admin: 10/20/16 10:20 Dose: 81 mg Carvedilol (Coreg) 3.125 mg PO BID [facility] Last Admin: 10/20/16 10:20 Dose: 3.125 mg Dicyclomine HCl (Bentyl) 20 mg PO DAILY [facility] Last Admin: 10/20/16 10:21 Dose: 20 mg Digoxin (Lanoxin) 0.25 mg PO DAILY [facility] Last Admin: 10/20/16 10:20 Dose: 0.25 mg Enoxaparin Sodium (Lovenox) 77 mg SC Q12 [facility] Famotidine (Pepcid) 20 mg PO BID [facility] Last Admin: 10/20/16 10:20 Dose: 20 mg Folic Acid (Folic Acid) 1 mg PO DAILY [facility] Last Admin: 10/20/16 10:20 Dose: 1 mg Furosemide (Lasix) 40 mg PO DAILY [facility] Last Admin: 08/30/17 10:20 Dose: 40 mg Levetiracetam (Keppra) 500 mg PO BID [facility] Last Admin: 10/20/16 10:20 Dose: 500 mg Lorazepam (Ativan) 1 mg IVP Q6H PRN PRN Reason: Seizure activity Losartan Potassium (Cozaar) 25 mg PO DAILY [facility] Last Admin: 10/20/16 10:21 Dose: 25 mg Metformin HCl (Glucophage) 500 mg PO BID [facility] Last Admin: 10/20/16 10:20 Dose: 500 mg Methylprednisolone (Medrol) 4 mg PO DAILY [facility] Last Admin: 10/20/16 10:21 Dose: 4 mg Fluticasone/Salmeterol (Advair Diskus 250/50) 1 puff IH RBID [facility] Last Admin: 10/20/16 07:47 Dose: 1 puff Thiamine HCl (Vitamin B1 Tab) 100 mg PO DAILY [facility] Last Admin: 10/20/16 10:31 Dose: 100 mg Zolpidem Tartrate (Ambien) 5 mg PO HS [facility] Last Admin: 10/19/16 21:27 Dose: 5 mg - Labs Labs: 10/20/16 07:52 10/20/16 07:52 - Constitutional Appears: Non-toxic, No Acute Distress - Head Exam Head Exam: ATRAUMATIC, NORMOCEPHALIC - Eye Exam Eye Exam: EOMI - ENT Exam ENT Exam: Mucous Membranes Moist - Respiratory Exam Respiratory Exam: Wheezes (diffuse). absent: Respiratory Distress - Cardiovascular Exam Cardiovascular Exam: +S1, +S2 Additional comments: well-healed sternotomy scar defibrillator left chest - GI/Abdominal Exam GI & Abdominal Exam: Soft, Normal Bowel Sounds. absent: Tenderness - Extremities Exam Extremities Exam: Normal Inspection. absent: Pedal Edema - Neurological Exam Neurological Exam: Alert, Awake - Skin Skin Exam: Dry, Warm Assessment and Plan - Assessment and Plan (Free Text) Assessment: Atrial Fibrillation - patient denies prior episodes or palpitations in the past. Likely due to repetitive use of albuterol and advair diskus prior to admission. - Cardiology consult, Dr. Greer- recommend continuing therapeutic lovenox until stress test done tomorrow morning. If stress test normal, patient can be discharge on Eliquis. Pt to be NPO after MN except for meds for lexiscan - CHADS VASC: CHF, HTN, CAD, DM= 4 - f/u Echo report - Therapeutic lovenox started - Digoxin 0.25mg (home med, however patient does not recall taking regularly) - TSH 1.83, free T4 0.64, A1c 6.9 , AST 138, ALT 192, Alk phos 224 Chest Pain r/o ACS - Troponins: 0.0680, 0.0510, 0.0400 - chest pain resolved EtOH Withdrawal/Polysubstance Abuse - Patient did not display evidence of intoxication on admission, however +Tox for Alcohol-91 and +Cannabinoids - banana bag x1 - ativan PRN - multivitamins - CIWA protocol - transaminitis likely due to alcoholism COPD exacerbation - patient repetitively used albuterol and advair diskus prior to admission, without relief - Low dose albuterol breathing treatments - c/w home meds - BiPAP FiO2 50, rate 12, 10/5 Seizure Disorder - Continue Keppra (home med) - patient previously noted to have pseudo-seizures CHF - Continue Lasix 40mg PO qd (home med) - Pro BNP 1330 - f/u echo Hypertension - Continue Losartan + Coreg Hyperlipidemia - holding statins due to transaminitis Diabetes - continue Metformin 500mg PO BID - A1c 6.9 Asplenia - patient will need immunizations before discharge CAD s/p CABG surgery was done 15 years ago at [facility] holding statin due to transaminitis Continue home med: plavix Prophylactic measure SCDs Pepcid heart healthy diet patient counseled regarding necessity of alcohol and cigarette cessation All medical management as per Dr. Burkett
--- NOTE | 2016-10-20 20:16 | CARD ---
APPROVED REPORT EXAM: Two-dimensional and M-mode echocardiogram with Doppler and color Doppler. Other Information Quality : GoodRhythm : INDICATION Atrial Fibrillation Chest Pain Congestive Heart Failure COCAINE ABUSE, ELEVATED TROPONIN Surgery/Intervention Status/Post Mitral Valve Replacement: Bioprosthetic ICD/Pacemaker: CABG: RISK FACTORS Hypertension Hyperlipidemia 2D DIMENSIONS IVSd0.9 (0.7-1.1cm)LVDd6.7 (3.9-5.9cm) PWd0.5 (0.7-1.1cm)LVDs6.4 (2.5-4.0cm) FS (%) 5.3 %LVEF (%)11.5 (>50%) M-Mode DIMENSIONS RVDd2.46 (2.1-3.2cm)Left Atrium (MM)3.83 (2.5-4.0cm) IVSd1.05 (0.7-1.1cm)Aortic Root3.90 (2.2-3.7cm) LVDd7.18 (4.0-5.6cm)Aortic Cusp Exc.2.11 (1.5-2.0cm) PWd0.55 (0.7-1.1cm)FS (%) 5 % LVDs6.83 (2.0-3.8cm)LVEF (%)11 (>50%) Aortic Valve AI P 1/2 [id number] Mitral Valve MV E Ufyrwmyu051.6cm/sMV E Peak Gr.20mmHgMV A Crpwffkf142.0cm/s MV E Mean Gr.8mmHgMV FXP11ieH/A ratio1.3 MVA (PHT)3.14cm2 TDI E/Lateral E'0.0E/Medial E'0.0 Tricuspid Valve TR Peak Ypfrlpzx049ob/sTR Peak Gr.18bcShFILB90auBj LEFT VENTRICLE The left ventricle is markedly dilated There is normal left ventricular wall thickness. The left ventricular function is severely reduced The left ventricular ejection fraction is 15%. The septum is hypokinetic, the inferior wall is akinetic. No left ventricle thrombus noted on this study. There is no ventricular septal defect visualized. There is no left ventricular aneurysm. There is no mass noted in the left ventricle. RIGHT VENTRICLE The right ventricle is normal size. There is normal right ventricular wall thickness. The right ventricular systolic function is normal. A ppm wire is noted. ATRIA The left atrium size is normal. The right atrium size is normal. The interatrial septum is intact with no evidence for an atrial septal defect. AORTIC VALVE The aortic valve is normal in structure and function. Moderate eccentri aortic regurgitation is present, directed lateral and inferior. There is no aortic valvular stenosis. There is no aortic valvular vegetation. MITRAL VALVE A normal appearing bio-prosthetic mitral valve is noted. Peak/mean gradients are 20/8 mm Hg, PHT is 70 mscec. . There is no mitral valve regurgitation noted. TRICUSPID VALVE The tricuspid valve is normal in structure and function. There is mild tricuspid valve regurgitation noted. Estiamted valve are is 58 mm Hg. There is no tricuspid valve prolapse or vegetation. There is no tricuspid valve stenosis. PULMONIC VALVE The pulmonary valve is normal in structure and function. There is mild pulmonic valvular regurgitation. There is no pulmonic valvular stenosis. GREAT VESSELS The aortic root is normal in size. The ascending aorta is normal in size. The pulmonary artery is normal. The IVC is normal in size and collapses >50% with inspiration. PERICARDIAL EFFUSION The pericardium appears normal. There is no pleural effusion. <Conclusion> 1.Cardiomegaly. Severely reduced overall LV F with hypokinetic septum and akinetic inferior wall. 2. Normal functioning bio-prosthetic mitral valve. 3. Moderate pulmonary HTN 4. Moderate eccentric aortic regurgitation.
--- NOTE | 2016-10-20 20:29 | CARD ---
APPROVED REPORT EKG Measurement Heart [id number] <Conclusion> Atrial fibrillation with rapid ventricular response with premature ventricular o ST & T wave abnormality, consider inferolateral ischemia Abnormal ECG
--- NOTE | 2016-10-20 23:22 | CP.PCM.PN ---
Subjective - Date & Time of Evaluation Date of Evaluation: 10/20/16 Time of Evaluation: 17:10 - Subjective Subjective: Patient seen and evaluated ECHO reviewed EF 15% Bioprosthatic aortic valve For stress test in am Objective - Vital Signs/Intake and Output Vital Signs (last 24 hours): Temp Pulse Resp BP Pulse Ox 97.9 F 78 20 123/83 98 10/20/16 16:00 10/20/16 16:00 10/20/16 16:00 10/20/16 16:00 10/20/16 16:00 Intake and Output: 10/20/16 10/21/16 18:59 06:59 Intake Total 300 Output Total 600 Balance 300 -600 - Medications Medications: Current Medications Albuterol Sulfate (Albuterol 0.042% Inhal Hedy (1.25mg/3ml) Ud) 1.25 mg INH RQ6 PRN PRN Reason: Shortness of Breath Last Admin: 10/20/16 07:54 Dose: 1.25 mg Aspirin (Ecotrin) 81 mg PO DAILY [facility] Last Admin: 10/20/16 10:20 Dose: 81 mg Carvedilol (Coreg) 3.125 mg PO BID [facility] Last Admin: 10/20/16 17:41 Dose: 3.125 mg Dicyclomine HCl (Bentyl) 20 mg PO DAILY [facility] Last Admin: 10/20/16 10:21 Dose: 20 mg Digoxin (Lanoxin) 0.25 mg PO DAILY [facility] Last Admin: 10/20/16 10:20 Dose: 0.25 mg Enoxaparin Sodium (Lovenox) 77 mg SC Q12 [facility] Last Admin: 10/20/16 21:39 Dose: Not Given Famotidine (Pepcid) 20 mg PO BID [facility] Last Admin: 10/20/16 17:41 Dose: 20 mg Folic Acid (Folic Acid) 1 mg PO DAILY [facility] Last Admin: 10/20/16 10:20 Dose: 1 mg Furosemide (Lasix) 40 mg PO DAILY [facility] Last Admin: 10/20/16 10:20 Dose: 40 mg Levetiracetam (Keppra) 500 mg PO BID [facility] Last Admin: 10/20/16 17:41 Dose: 500 mg Lorazepam (Ativan) 1 mg IVP Q6H PRN PRN Reason: Seizure activity Losartan Potassium (Cozaar) 25 mg PO DAILY [facility] Last Admin: 10/20/16 10:21 Dose: 25 mg Metformin HCl (Glucophage) 500 mg PO BID [facility] Last Admin: 10/20/16 17:41 Dose: 500 mg Methylprednisolone (Medrol) 4 mg PO DAILY [facility] Last Admin: 10/20/16 10:21 Dose: 4 mg Fluticasone/Salmeterol (Advair Diskus 250/50) 1 puff IH RBID [facility] Last Admin: 10/20/16 07:47 Dose: 1 puff Thiamine HCl (Vitamin B1 Tab) 100 mg PO DAILY [facility] Last Admin: 10/20/16 10:31 Dose: 100 mg Zolpidem Tartrate (Ambien) 5 mg PO HS [facility] Last Admin: 10/20/16 21:38 Dose: 5 mg - Labs Labs: 10/20/16 07:52 10/20/16 07:52
[2016-10-21 07:31] LABS: BASO # 0.1 K/uL (0.0-0.2); BASO % 0.7 % (0.0-2.0); EOS # 0.1 K/uL (0.0-0.7); EOS % 0.8 % (0.0-4.0); HEMATOCRIT 43.4 % (35.0-51.0); LYMPH # 1.7 K/uL (1.0-4.3); LYMPH % 14.4 % (20.0-40.0); MEAN CORPUSCULAR HEMOGLOBIN 30.2 pg (27.0-31.0); MEAN CORPUSCULAR HGB CONC 32.9 g/dL (33.0-37.0); MEAN PLATELET VOLUME 9.8 fL (7.2-11.7); MONO # 1.5 K/uL (0.0-0.8); MONO % 12.7 % (0.0-10.0); NRBC % 0.2 % (0.0-2.0); RED CELL DISTRIBUTION WIDTH 15.9 % (11.5-14.5); WHITE BLOOD COUNT 12.1 K/uL (4.8-10.8)
[2016-10-21 07:34] LABS: CHLORIDE 97 mmol/L (98-107); POTASSIUM 4.2 mmol/L (3.6-5.2); SODIUM 135 mmol/L (132-148)
[2016-10-21] MEDS: Fluticasone-Salmeterol 250-50mcg Diskus IH SCH (07:35)
[2016-10-21 07:36] LABS: ALKALINE PHOSPHATASE 214 U/L (38-126); AST/SGOT 105 U/L (17-59); BILIRUBIN,TOTAL 0.8 mg/dL (0.2-1.3); BLOOD UREA NITROGEN 18 mg/dL (9-20); CARBON DIOXIDE 30 mmol/L (22-30); GFR AFRICAN-AMERICAN > 60; TOTAL PROTEIN 6.5 g/dL (6.3-8.3)
[2016-10-21 07:37] LABS: ALT/SGPT 163 U/L (21-72); GLUCOSE,RANDOM 99 mg/dL (75-110)
[2016-10-21 07:38] LABS: CALCIUM 9.2 mg/dl (8.6-10.4); MAGNESIUM 1.8 mg/dL (1.6-2.3); PHOSPHOROUS 5.1 mg/dL (2.5-4.5)
[2016-10-21] MEDS ORDERED: Aminophylline 25 mg/ml Inj ONE (07:38)
--- NOTE | 2016-10-21 09:48 | HP ---
HISTORY OF PRESENT ILLNESS: This is a 56-year-old female with history of coronary artery disease, history of congestive heart failure, alcoholism, COPD, chief complaint shortness of breath, weakness, and felt palpitations. The patient was found to have atrial fibrillation with rapid ventricular response. PHYSICAL EXAMINATION: GENERAL: The patient is awake, alert, and oriented and short of breath. VITAL SIGNS: Temperature 95, blood pressure 120/70. HEENT: Within normal limits. NECK: Supple. HEART: Regular. ABDOMEN: Soft. EXTREMITIES: No edema. ASSESSMENT: heart failure, . Patient on bedrest, , supportive care. Juanjose Burkett MD
[2016-10-21] MEDS: Digoxin 250 mcg (0.25 mg) Tab PO SCH ×2 (09:52→10:54)
[2016-10-21] MEDS: Enoxaparin 80 mg Syringe SC SCH ×2 (09:53→10:58)
[2016-10-21 10:58] VITALS: PULSE 97
--- NOTE | 2016-10-21 14:40 | CARD ---
APPROVED REPORT Protocol: LEXISCAN Test Type: LEXISCAN STRESS Test Indications: A FIB ASTHMA Target HR: 165 bpm Resting ECG: LVH Resting Heart Rate: 79 bpm Resting Blood Pressure: 148/80mmHg submaximum (85%): 140 bpm TEST SUMMARY PREINFSNHYPERV.40:[id number]/80.2. INFUSIONDOSE 100:300.00.01.077/.1. SXRDRLTPU04:[id number]/80.6. PROCEDURE Pharmacologic stress testing was performed using 0.4mg per 5ml of regadenoson given intravenously over 7-10 seconds. POST EXERCISE Reason for Termination: Gillian Scan Protocol completed Target HR: No Max HR: 77 bpm 61% of Maximum Predicted HR: 165 bpm Exercise duration: 00:30 min:sec, 0 Stage Exercise capacity: 1.0METs Max Blood Pressure: 148/80mmHg Blood Pressure response to exercise: normal resting BP - appropriate response Heart Rate response to exercise: appropriate Chest Pain: No, none Angina index: 0 Arrhythmia: Yes, PVC ST Change: No, none Deviation: 0 mm INTERPRETATION Stress EKG Conclusion: Still waiting on nuclear images EXAM: Myocardial Perfusion REST/STRESS Imaging Protocol The imaging protocol used to acquire images was Rest Tc-99m/stress Tc-99m 1 day Rest Spect myocardial perfusion imaging was performed in supine position 41 minutes following the injection of 12.7 mCi of Tc-99 Myoview. Gated Stress Spect was performed 40 minutes after intravenous 31.3 mCi Tc-99 Myoview injection. The images were gated to evaluate regional wall motion and calculate ventricular ejection fraction.Images were reconstructed using backfilter projection method in short horizontal and verticle long axis. Spect slices were generated. RESTING DATA UAZ028.29rzWY7.10L/min1/3 Pk. Filling Rate0.51EDV/sec LV Time to Pk. Filling Ptow081.03msec YLT362.00mlMyocardial Huxm694.00gLV Time to Pk. Ejection Fchr839.88msec Pk. Fill Rate0.38EDV/secAv. Heart Rate80.00bpm EF26.00%Pk. Emptying Rate1.31ESV/sec STRESS DATA IFY540.78hjIP5.10L/min AUQ939.00mlMyocardial Xypl144.00g Pk. Fill Rate1.73EDV/sec EF23.00%Pk. Emptying Rate1.06ESV/sec 1/3 Pk. Filling Rate1.13EDV/secRegional WT score at stress:3.00 LV Time to Pk. Filling Rate:80.39msecRegional WM score at stress:3.00 LV Time to Pk. Ejection Rate:73.42msecSummed WT score at stress:33.00 Av. Heart Rate81.00bpmSummed WM score at stress:45.00 LV Perf. Quant 17 Seg. SSS21.00 17 Seg. SRS17.00 17 Seg. SDS4.00 Stress Defect Extent (% LAD)0.60Rest Defect Extent (% LAD)0.60Rev. Defect Extent (% LAD)0.00 Stress Defect Extent (% LCX)75.00Rest Defect Extent (% LCX)42.50Rev. Defect Extent (% LCX)32.50 Stress Defect Extent (% RCA)43.30Rest Defect Extent (% RCA)58.90Rev. Defect Extent (% RCA)0.00 Stress Defect Extent (% CONCHITA)32.00Rest Defect Extent (% CONCHITA)27.00Rev. Defect Extent (% CONCHITA)7.20 Other Information Quality:Good Left Ventricle LV Function:Left ventricle systolic function is Abnormal The Ejection Fraction is 25-35%. Conclusion 1. 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 No reversible perfusion defect. EF 25%
[2016-10-21 15:43] VITALS: BP 124/78; PULSE 90; RESP 20; TEMP 97.1; O2SAT 97
--- NOTE | 2016-10-21 15:45 | CP.PCM.PN ---
Subjective - Date & Time of Evaluation Date of Evaluation: 10/21/16 Time of Evaluation: 07:20 - Subjective Subjective: Medicine progress note for Dr. Burkett: Patient seen and examined before and after lexiscan. Patient states he is feeling much better today. Patient admits to poor compliance with medication regimen in the past and states he will follow up with his PMD. Objective - Vital Signs/Intake and Output Vital Signs (last 24 hours): Temp Pulse Resp BP Pulse Ox 97.1 F L 90 20 124/78 97 10/21/16 15:38 10/21/16 15:38 10/21/16 15:38 10/21/16 15:38 10/21/16 15:38 Intake and Output: 10/21/16 10/21/16 06:59 18:59 Intake Total 0 480 Output Total 2049 Balance -2049 480 - Medications Medications: Current Medications Albuterol Sulfate (Albuterol 0.042% Inhal Hedy (1.25mg/3ml) Ud) 1.25 mg INH RQ6 PRN PRN Reason: Shortness of Breath Last Admin: 10/20/16 07:54 Dose: 1.25 mg Aspirin (Ecotrin) 81 mg PO DAILY [facility] Last Admin: 10/21/16 10:54 Dose: 81 mg Carvedilol (Coreg) 3.125 mg PO BID [facility] Last Admin: 10/21/16 10:53 Dose: 3.125 mg Dicyclomine HCl (Bentyl) 20 mg PO DAILY [facility] Last Admin: 10/21/16 10:53 Dose: 20 mg Digoxin (Lanoxin) 0.25 mg PO DAILY [facility] Last Admin: 10/21/16 10:54 Dose: 0.25 mg Enoxaparin Sodium (Lovenox) 77 mg SC Q12 [facility] Last Admin: 10/21/16 10:58 Dose: Not Given Famotidine (Pepcid) 20 mg PO BID [facility] Last Admin: 10/21/16 10:53 Dose: 20 mg Folic Acid (Folic Acid) 1 mg PO DAILY [facility] Last Admin: 10/21/16 10:55 Dose: 1 mg Furosemide (Lasix) 40 mg PO DAILY [facility] Last Admin: 10/21/16 10:53 Dose: 40 mg Levetiracetam (Keppra) 500 mg PO BID [facility] Last Admin: 10/21/16 10:53 Dose: 500 mg Lorazepam (Ativan) 1 mg IVP Q6H PRN PRN Reason: Seizure activity Losartan Potassium (Cozaar) 25 mg PO DAILY [facility] Last Admin: 10/21/16 10:53 Dose: 25 mg Metformin HCl (Glucophage) 500 mg PO BID [facility] Last Admin: 10/21/16 10:54 Dose: 500 mg Methylprednisolone (Medrol) 4 mg PO DAILY [facility] Last Admin: 10/21/16 10:53 Dose: 4 mg Fluticasone/Salmeterol (Advair Diskus 250/50) 1 puff IH RBID [facility] Last Admin: 10/21/16 07:35 Dose: 1 puff Thiamine HCl (Vitamin B1 Tab) 100 mg PO DAILY [facility] Last Admin: 10/21/16 10:53 Dose: 100 mg Zolpidem Tartrate (Ambien) 5 mg PO HS [facility] Last Admin: 10/20/16 21:38 Dose: 5 mg - Labs Labs: 10/21/16 06:57 10/21/16 06:57 - Constitutional Appears: Non-toxic, No Acute Distress - Head Exam Head Exam: ATRAUMATIC, NORMOCEPHALIC - Eye Exam Eye Exam: EOMI - ENT Exam ENT Exam: Mucous Membranes Moist - Respiratory Exam Respiratory Exam: NORMAL BREATHING PATTERN. absent: Rales, Rhonchi, Wheezes, Respiratory Distress - Cardiovascular Exam Cardiovascular Exam: +S1, +S2 Additional comments: well-healed sternotomy scar - GI/Abdominal Exam GI & Abdominal Exam: Soft, Normal Bowel Sounds. absent: Tenderness - Extremities Exam Extremities Exam: Normal Inspection. 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 EF 25%. - Cardiology consult, Dr. Greer- recommend continuing therapeutic lovenox until stress test done tomorrow morning. - CHADS VASC: CHF, HTN, CAD, DM= 4 - patient cannot be on xarelto or eliquis due to bioprosthetic valve. patient is not a good candidate for coumadin as patient has history of medication non- compliance and poor follow up. patient to be discharged on aspirin 81mg daily. - Echo: bioprosthetic mitral valve. LV markedly dilated, LV EF 15%, septum/ inferior wall akinetic. RV systolic function normal, moderate pulmonary HTN, moderate eccentric aortic regurgitation - Digoxin 0.25mg (home med, however patient does not recall taking regularly) - TSH 1.83, free T4 0.64, A1c 6.9 , AST 138, ALT 192, Alk phos 224 Chest Pain r/o ACS - Troponins: 0.0680, 0.0510, 0.0400 - chest pain resolved EtOH Withdrawal/Polysubstance Abuse - Patient did not display evidence of intoxication on admission, however +Tox for Alcohol-91 and +Cannabinoids - banana bag x1 - ativan PRN - multivitamins - CIWA protocol - transaminitis likely due to alcoholism- slowly resolving COPD exacerbation - patient repetitively used albuterol and advair diskus prior to admission, without relief - Low dose albuterol breathing treatments - c/w home meds - BiPAP FiO2 50, rate 12, 10/5 Seizure Disorder - Continue Keppra (home med) - patient previously noted to have pseudo-seizures CHF - Continue Lasix 40mg PO qd (home med) - Pro BNP 1330 - echo: bioprosthetic mitral valve. LV markedly dilated, LV EF 15%, septum/ inferior wall akinetic. RV systolic function normal, moderate pulmonary HTN, moderate eccentric aortic regurgitation Hypertension - Continue Losartan + Coreg Hyperlipidemia - holding statins due to transaminitis Diabetes - continue Metformin 500mg PO BID - A1c 6.9 Asplenia - patient will need immunizations before discharge CAD s/p CABG surgery was done 15 years ago at [facility] holding statin due to transaminitis plavix discontinued, per Dr. Greer, patient to take aspirin daily Prophylactic measure SCDs Pepcid heart healthy diet patient counseled regarding necessity of alcohol and cigarette cessation All medical management as per Dr. Burkett Patient is stable for discharge home per Dr. Burkett. 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 Mccoy and call [phone] for appointment. Patient is to follow up with his primary doctor, Dr. Foster, within one week of discharge. If patient would like to establish care with new PMD he can see Dr. Burkett within next week. Patient is being given prescriptions for coreg, digoxin, lasix, aspirin, metformin, keppra, and losartan.
--- NOTE | 2016-10-21 17:55 | PCM.HF ---
Heart Failure Core Measure - Heart Failure Ejection Fraction: Less Than 40 % (EF 15%) IQRA Inhibitor Prescribed: No Contraindication/Reason for not providing: ARB Beta-Gertrudis Prescribed: Carvedilol Angiotensin II Receptor Gertruids Prescribed: Yes AnticoagulationTherapy for Atrial Fibrillation/Atrialflutter: No Contraindication/Reason for not providing: NO AFIB Aldosterone Antagonist Prescribed: No Contraindication/Reason for not providing: NOT RX BY Hydralazine Nitrate Prescribed: No Contraindication/Reason for not providing: NOT RX BY Implantable Cardioverter Defibrillator Therapy: Yes Cardiac Resynchronization Therapy Prescribed: No Contraindication/Reason for not providing: DEFIBRILLATOR - Follow up Will be discharged to: Home Follow Up Date (must be within 7 days from discharge): 10/26/16 Follow Up Time: 09:00
== END 2016-10-21 16:00 | disposition home or self-care (01) | DRG 132 ==
LOC: C.ER 10:47 → C.9E 13:45 → C.6T 14:23
PROVIDERS: ADMIT Internal Medicine Pulmonary Disease; ATTEND Internal Medicine Pulmonary Disease
PROC: 5A09457 Assistance with Respiratory Ventilation, 24-96 Consecutive Hours, Continuous Positive Airway Pressure (ICD-10-PCS; principal; 2016-10-19)
DX: I25.110 Atherosclerotic heart disease of native coronary artery with unstable angina pectoris (principal); I11.0 Hypertensive heart disease with heart failure; Q89.01 Asplenia (congenital); I50.9 Heart failure, unspecified; J44.1 Chronic obstructive pulmonary disease with (acute) exacerbation; I48.91 Unspecified atrial fibrillation; F32.9 Major depressive disorder, single episode, unspecified; G40.909 Epilepsy, unspecified, not intractable, without status epilepticus; F14.10 Cocaine abuse, uncomplicated; F11.10 Opioid abuse, uncomplicated; Z95.1 Presence of aortocoronary bypass graft; J45.909 Unspecified asthma, uncomplicated; E78.00 Pure hypercholesterolemia, unspecified; Z95.0 Presence of cardiac pacemaker; F17.210 Nicotine dependence, cigarettes, uncomplicated; F10.20 Alcohol dependence, uncomplicated; Y90.4 Blood alcohol level of 80-99 mg/100 ml; E11.9 Type 2 diabetes mellitus without complications; Z91.14 Patient's other noncompliance with medication regimen

== ENCOUNTER 2016-11-06 14:14 | Inpatient (IN) | payer OTHER ==
[2016-11-06 14:16] VITALS: BMI 28.3
--- NOTE | 2016-11-06 14:24 | C.PDOC ---
History Of Present Illness A 56 year old male, whose past medical history includes asthma, atrial fibrillation, cardia arrhythmia, CHF, COPD, Depression, hypertension, hypercholesterolemia, [place], pacemaker, coronary stent, CABG, drug abuse is brought into the emergency department via EMS with notification for shortness of breath, which began 2 days ago, and chest pain with nausea and vomiting, which began yesterday. The patient also admits to drinking beer and whiskey earlier today. He denies any fever, dysuria, back pain, or any other complaints at this time. Time Seen by Provider: 11/06/16 14:20 Chief Complaint (Nursing): Chest Pain History Per: Patient History/Exam Limitations: no limitations Onset/Duration Of Symptoms: Days (x 2 ) Current Symptoms Are (Timing): Worse Severity: Mild Past Medical History Reviewed: Historical Data, Nursing Documentation, Vital Signs Vital Signs: Last Vital Signs Temp 97.7 F 11/06/16 14:18 Pulse 158 H 11/06/16 16:20 Resp 18 11/06/16 16:20 BP 98/69 L 11/06/16 16:20 Pulse Ox 98 11/06/16 16:20 - Medical History PMH: Asthma, Atrial Fibrillation, Back Problems, Cardia Arrhythmia, CHF, COPD, Depression, HTN, Hypercholesterolemia, Pneumonia, Seizures Denies: Chronic Kidney Disease Surgical History: CABG, Coronary Stent (4), Pacemaker - [facility] Procedures ASSISTANCE WITH RESPIRATORY VENTILATION, 24-96 HRS, CPAP (10/19/16) CORONAR ARTERIOGR-2 CATH (06/24/14) CORONARY ARTERY STENT INSERTION [id number] (06/24/14) INFLUENZA VACCINATION (04/25/14) INSERTION OF ONE VASCULAR STENT (06/24/14) INTRODUCE OF OTH THERAP SUBST INTO RESP TRACT, VIA OPENING (06/19/15) INTRODUCTION OF SERUM/TOX/VACCINE INTO MUSCLE, PERC APPROACH (01/05/16) LEFT HEART CARDIAC CATH (06/24/14) NEBULIZER THERAPY (07/12/14) PERCUTANEOUS TRANSLUMINAL CORONARY ANGIOPLASTY [PTCA] (06/24/14) PROCEDURE ON SINGLE VESSEL (06/24/14) VACCINATION NEC (04/25/14) Family History: States: Unknown Family Hx, Diabetes - Social History Hx Tobacco Use: Yes Hx Alcohol Use: Yes (4-5 cans of beer twice a week) Hx Substance Use: Yes - Immunization History Hx Tetanus Toxoid Vaccination: No Hx Influenza Vaccination: No Hx Pneumococcal Vaccination: No Review Of Systems Except As Marked, All Systems Reviewed And Found Negative. Constitutional: Negative for: Fever Cardiovascular: Positive for: Chest Pain Respiratory: Positive for: Cough, Shortness of Breath Gastrointestinal: Positive for: Nausea, Vomiting Genitourinary: Negative for: Dysuria Musculoskeletal: Negative for: Back Pain Physical Exam - Physical Exam Appears: Well, Non-toxic, No Acute Distress Skin: Normal Color, Warm, Dry Head: Atraumatic, Normacephalic Eye(s): bilateral: Normal Inspection, PERRL, EOMI Nose: Normal Throat: Normal Neck: Normal Chest: Other (ICD-Left chest ) Cardiovascular: Rhythm Regular Respiratory: Rales (bilateral rales), Other (mild respiratory distress) Gastrointestinal/Abdominal: Normal Exam Back: Normal Inspection Extremity: Normal ROM, Pedal Edema (pitting edema ) Neurological/Psych: Oriented x3, Normal Speech, Normal Cognition, Normal Cranial Nerves ED Course And Treatment - Laboratory Results Result Diagrams: 11/06/16 14:46 11/06/16 14:46 Medical Decision Making Medical Decision Making: Treatment Plan: -- EKG -- Labs -- Chest X-ray -- Saline Lock -- Nebulizer -- Urinalysis Progress Notes: On Bipap Patient persistently tachycardic, gave Dilt X 2, on Cardizem drip. Patient had seizure, Ativan given. Spoke to ICU, will admit Disposition Discussed With : Juanjose Burkett Doctor Will See Patient In The: Hospital Counseled Patient/Family Regarding: Studies Performed - Disposition Disposition: HOSPITALIZED Disposition Time: 16:09 Condition: CRITICAL - Clinical Impression Clinical Impression: COPD exacerbation, Dyspnea, Alcohol abuse, Chest pain, Tachyarrhythmia, Seizure - Scribe Statement The provider has reviewed the documentation as recorded by the Scribe Carola Carmichael All medical record entries made by the Scribe were at my direction and personally dictated by me. I have reviewed the chart and agree that the record accurately reflects my personal performance of the history, physical exam, medical decision making, and the department course for this patient. I have also personally directed, reviewed, and agree with the discharge instructions and disposition. Decision To Admit - Pt Status Changed To: Hospital Disposition Of: Inpatient - Admit Certification Admit to Inpatient:: After my assessment, the patient will require hospitalization for at least two midnights. This is because of the severity of symptoms shown, intensity of services needed, and/or the medical risk in this patient being treated as an outpatient. - InPatient: Physician Admission Certification: I certify that this patient requires 2 or more midnights of care for the following reason:: critical patient - . Bed Request Type: ICU Patient Diagnosis: COPD exacerbation, Dyspnea, Alcohol abuse, Chest pain, Tachyarrhythmia, Seizure
[2016-11-06] MEDS ORDERED: Albuterol-Ipratrop 3 mg / 0.5 (3 ml) UD ONE (14:39)
[2016-11-06 15:00] LABS: BASO # 0.1 K/uL (0.0-0.2); BASO % 0.4 % (0.0-2.0); EOS # 0.1 K/uL (0.0-0.7); EOS % 0.6 % (0.0-4.0); HEMATOCRIT 44.4 % (35.0-51.0); LYMPH % 12.5 % (20.0-40.0); MEAN CORPUSCULAR HEMOGLOBIN 30.2 pg (27.0-31.0); MEAN CORPUSCULAR HGB CONC 32.5 g/dL (33.0-37.0); MEAN PLATELET VOLUME 9.5 fL (7.2-11.7); MONO # 1.7 K/uL (0.0-0.8); NRBC % 0.5 % (0.0-2.0); RED CELL DISTRIBUTION WIDTH 16.2 % (11.5-14.5); WHITE BLOOD COUNT 15.8 K/uL (4.8-10.8)
[2016-11-06] MEDS: Albuterol-Ipratrop 3 mg / 0.5 (3 ml) UD IH SCH ×2 (15:12→15:13)
[2016-11-06 15:27] LABS: ALKALINE PHOSPHATASE 441 U/L (38-126); ALT/SGPT 679 U/L (21-72); BLOOD UREA NITROGEN 9 mg/dL (9-20); CALCIUM 8.4 mg/dl (8.6-10.4); CARBON DIOXIDE 19 mmol/L (22-30); CHLORIDE 95 mmol/L (98-107); GFR AFRICAN-AMERICAN > 60; GLUCOSE,RANDOM 120 mg/dL (75-110); POTASSIUM 4.5 mmol/L (3.6-5.2); SODIUM 131 mmol/L (132-148); TOTAL PROTEIN 6.9 g/dL (6.3-8.3)
[2016-11-06 15:44] LABS: BILIRUBIN,TOTAL 5.7 mg/dL (0.2-1.3)
[2016-11-06 15:51] LABS: AST/SGOT 817 U/L (17-59)
--- NOTE | 2016-11-06 15:51 | RAD ---
PROCEDURE: CHEST RADIOGRAPH, 1 VIEW HISTORY: chest pain COMPARISON: Comparison is made to 10/19/2016 FINDINGS: LUNGS: Re- demonstration of [id number] pulmonary vascular congestion. PLEURA: Small right pleural effusion is again noted. CARDIOVASCULAR: The cardiac silhouette is enlarged. Single wire left-sided a ACD is seen in place. OSSEOUS STRUCTURES: No significant abnormalities. VISUALIZED UPPER ABDOMEN: Normal. OTHER FINDINGS: None. IMPRESSION: Cardiomegaly and [id number] pulmonary vascular congestion. Small right pleural effusion.
[2016-11-06] MEDS ORDERED: Nitroglycerin 50mg in D5W 50 MG/250 ML BOTTLE IV SCH (16:00)
[2016-11-06 16:34] LABS: URINE BACTERIA OCC (<OCC); URINE BILIRUBIN NEGATIVE (NEGATIVE); URINE BLOOD NEGATIVE (NEGATIVE); URINE COLOR Yellow (YELLOW); URINE GLUCOSE (UA) NORMAL (Normal); URINE KETONE NEGATIVE (NEGATIVE); URINE LEUKOCYTE ESTERASE NEG Leu/uL (Negative); URINE PROTEIN NEGATIVE (NEGATIVE); WBC URINE 1 /hpf (0-5)
--- NOTE | 2016-11-06 17:53 | CP.PCM.CON ---
History of Present Illness - History of Present Illness History of Present Illness: 56yo M. PMHx systolic CHF (EF-15%), possible alcoholic CM, CAD, CABG, PPM, COPD , HTN, seizure disorder, polysubstance abuse, DM type 2. p/w SOB and chest pain , afib, then had seizure episode in ED. Review of Systems - Review of Systems Systems not reviewed;Unavailable: Altered Mental Status Past Patient History - Infectious Disease Hx of Infectious Diseases: None - Tetanus Immunizations Tetanus Immunization: Unknown - Past Medical History & Family History Past Medical History?: Yes - Past Social History Smoking Status: Light Smoker < 10 Cigarettes Daily - CARDIAC Hx Atrial Fibrillation: Yes Hx Cardia Arrhythmia: Yes Hx Congestive Heart Failure: Yes Hx Hypercholesterolemia: Yes Hx Hypertension: Yes Hx Pacemaker: Yes - PULMONARY Hx Asthma: Yes Hx Chronic Obstructive Pulmonary Disease (COPD): Yes Hx Pneumonia: Yes - NEUROLOGICAL Hx Seizures: Yes - HEENT Hx HEENT Problems: No - RENAL Hx Chronic Kidney Disease: No - ENDOCRINE/METABOLIC Hx Diabetes Mellitus Type 2: Yes - HEMATOLOGICAL/ONCOLOGICAL Hx Blood Disorders: No - INTEGUMENTARY Hx Dermatological Problems: No - MUSCULOSKELETAL/RHEUMATOLOGICAL Hx Falls: Yes - GASTROINTESTINAL Hx Gastrointestinal Disorders: No - GENITOURINARY/GYNECOLOGICAL Hx Genitourinary Disorders: No - PSYCHIATRIC Hx Depression: Yes Hx Substance Use: Yes - SURGICAL HISTORY Hx Coronary Artery Bypass Graft: Yes Hx Coronary Stent: Yes (4) - ANESTHESIA Hx Anesthesia: Yes Hx Anesthesia Reactions: No Hx Malignant Hyperthermia: No Meds Allergies/Adverse Reactions: Allergies Allergy/AdvReac Type Severity Reaction Status Date / Time No Known Allergies Allergy Verified 09/16/16 08:54 - Medications Medications: Current Medications Carvedilol (Coreg) 3.125 mg PO BID PATIENCE Diltiazem HCl 125 mg/ Sodium (Chloride) 125 mls @ 10 mls/hr IV .[id number] ONE PRN Reason: 10 MG/HR Stop: 11/07/16 03:19 Last Admin: 11/06/16 15:13 Dose: 10 mls/hr Levetiracetam 1,000 mg/ (Dextrose) 110 mls @ 420 mls/hr IVPB ONCE ONE Stop: 11/06/16 18:00 Levetiracetam 500 mg/ Sodium (Chloride) 105 mls @ 420 mls/hr IVPB Q12H PATIENCE Insulin Aspart (Novolog) 0 unit SC Q6H PATIENCE PRN Reason: Protocol Physical Exam - Head Exam Head Exam: ATRAUMATIC, NORMAL INSPECTION, NORMOCEPHALIC - Eye Exam Eye Exam: EOMI, Normal appearance, PERRL - ENT Exam ENT Exam: Mucous Membranes Moist, Normal Exam - Neck Exam Neck exam: Positive for: Normal Inspection - Respiratory Exam Respiratory Exam: Rales, NORMAL BREATHING PATTERN - Cardiovascular Exam Cardiovascular Exam: REGULAR RHYTHM - GI/Abdominal Exam GI & Abdominal Exam: Normal Bowel Sounds, Soft. absent: Tenderness - Neurological Exam Neurological exam: Alert (but drowsy) Results - Vital Signs Recent Vital Signs: Last Vital Signs Temp 98 F 11/06/16 17:43 Pulse 158 H 11/06/16 17:03 Resp 18 11/06/16 17:03 BP 115/76 11/06/16 17:43 Pulse Ox 100 11/06/16 17:03 - Labs Result Diagrams: 11/06/16 14:46 11/06/16 14:46 Assessment & Plan (1) Dyspnea Assessment and Plan: 56yo M. PMHx systolic CHF (EF-15%), possible alcoholic CM, CAD, CABG, PPM, COPD , HTN, seizure disorder, polysubstance abuse, DM type 2. p/w SOB and chest pain , afib, then had seizure episode in ED. Neuro: Drowsy and post-ictal. Most likely withdrawal seizure from either alcohol or noncompliance with home medications, will load with Keppra and restart twice a day dosing. CIWA protocol for possible EtOH withdrawal. Pulm: Acute respiratory failure, possibly secondary to pulmonary edema, patient given a dose of Lasix in ED, then started on BiPAP. CV: Hemodynamically stable. An uncontrolled A. fib, started on Cardizem drip in ED, will restart patient's oral carvedilol and titrate drip off. Hem: No acute issues Renal: No acute issues Endo: DM type II, short acting insulin sliding scale for coverage GI: Nothing by mouth while on BiPAP ID: No acute issues, leukocytosis possible surgical reaction to seizures, will monitor for sources of sepsis. DVT proph - Lovenox GI proph - not currently indicated Code status - full code Critical Care Time spent 35 minutes Multi-disciplinary rounds were performed with house staff, nursing, speech therapy, respiratory therapy, pharmacy and nutrition with integrated input from the primary team/attending and other consulting services. The documented time is cumulative and includes review of patient data/exams/labs/chart review and examination of the patient on rounds and throughout the day; time is exclusive of any procedures or teaching time. Status: Acute
[2016-11-06] MEDS: (Novolog) Insulin Aspart, Recombinant 100 u/ml 10 ml vial SC SCH ×2 (18:10→23:27)
[2016-11-06] MEDS: Multiple Vitamins Tab PO SCH (18:22)
[2016-11-06] MEDS ORDERED: Metoprolol 1 mg/ml Inj IVP ONE (19:45)
[2016-11-06 23:01] LABS: CHLORIDE 98 mmol/L (98-107)
[2016-11-06 23:02] LABS: POTASSIUM 5.3 mmol/L (3.6-5.2); SODIUM 131 mmol/L (132-148)
[2016-11-06 23:04] LABS: ALKALINE PHOSPHATASE 338 U/L (38-126); BILIRUBIN,TOTAL 4.8 mg/dL (0.2-1.3); BLOOD UREA NITROGEN 14 mg/dL (9-20); CARBON DIOXIDE 18 mmol/L (22-30); GFR AFRICAN-AMERICAN > 60; TOTAL PROTEIN 6.3 g/dL (6.3-8.3)
[2016-11-06 23:05] LABS: CALCIUM 8.1 mg/dl (8.6-10.4); GLUCOSE,RANDOM 158 mg/dL (75-110); MAGNESIUM 1.8 mg/dL (1.6-2.3); PHOSPHOROUS 5.6 mg/dL (2.5-4.5)
[2016-11-06 23:51] LABS: AST/SGOT 1946 U/L (17-59)
[2016-11-06 23:53] LABS: ALT/SGPT 1477 U/L (21-72)
[2016-11-07] MEDS ORDERED: Digoxin 500 mcg/2ml (0.5 mg/2ml) Inj IVP ONE ×2 (00:30→22:13)
[2016-11-07] MEDS: (Novolog) Insulin Aspart, Recombinant 100 u/ml 10 ml vial SC SCH ×3 (05:56→17:32)
[2016-11-07 06:30] LABS: BASO % 0.1 % (0.0-2.0); EOS % 0.1 % (0.0-4.0); HEMATOCRIT 40.1 % (35.0-51.0); LYMPH # 1.8 K/uL (1.0-4.3); LYMPH % 9.5 % (20.0-40.0); MEAN CELL VOLUME 92.5 fL (80.0-94.0); MEAN CORPUSCULAR HEMOGLOBIN 30.6 pg (27.0-31.0); MEAN PLATELET VOLUME 9.8 fL (7.2-11.7); MONO # 1.1 K/uL (0.0-0.8); MONO % 5.7 % (0.0-10.0); NRBC % 0.4 % (0.0-2.0); PLATELET COUNT 251 K/uL (130-400); RED CELL DISTRIBUTION WIDTH 16.1 % (11.5-14.5); WHITE BLOOD COUNT 19.2 K/uL (4.8-10.8)
[2016-11-07 06:36] LABS: INR 1.4
[2016-11-07 06:46] LABS: CHLORIDE 92 mmol/L (98-107); SODIUM 124 mmol/L (132-148)
[2016-11-07 06:47] LABS: POTASSIUM 4.9 mmol/L (3.6-5.2)
[2016-11-07 06:48] LABS: GFR AFRICAN-AMERICAN > 60
[2016-11-07 06:49] LABS: ALKALINE PHOSPHATASE 359 U/L (38-126); BILIRUBIN,TOTAL 6.4 mg/dL (0.2-1.3); BLOOD UREA NITROGEN 24 mg/dL (9-20); CALCIUM 7.8 mg/dl (8.6-10.4); CARBON DIOXIDE 21 mmol/L (22-30); GLUCOSE,RANDOM 221 mg/dL (75-110); PHOSPHOROUS 4.4 mg/dL (2.5-4.5); TOTAL PROTEIN 6.2 g/dL (6.3-8.3)
[2016-11-07 06:50] LABS: MAGNESIUM 1.7 mg/dL (1.6-2.3)
[2016-11-07 07:02] LABS: AST/SGOT 6543 U/L (17-59)
[2016-11-07 07:03] LABS: ALT/SGPT 3635 U/L (21-72)
[2016-11-07] MEDS: levETIRAcetam 500 MG in Sodium Chloride 0.9% 100 ML IVPB SCH ×2 (10:00→21:59)
[2016-11-07] MEDS: Multiple Vitamins Tab PO SCH (10:00)
[2016-11-07 10:07] LABS: NEUTROPHIL 82 % (50-75); TOTAL CELLS COUNTED 100
[2016-11-07 10:09] LABS: LARGE PLATELETS PRESENT
[2016-11-07] MEDS ORDERED: PrednisoLONE 6 MG/2 ML SYR PO SCH (12:30)
--- NOTE | 2016-11-07 13:03 | CP.CCUPN ---
CCU Subjective - Physician Review Events Since Last Encounter (Free Text): 11/07/16 12:58 no complaints, feels good. CCU Objective - Vital Signs / Intake & Output Vital Signs (Last 4 hours): Vital Signs Temp Pulse Resp BP 11/07/16 11:47 97.4 F L 11/07/16 11:00 134 H 15 96/51 L 11/07/16 10:00 143 H 14 107/80 11/07/16 09:02 109 H 13 107/67 11/07/16 09:00 110 H 14 Intake and Output (Last 8hrs): Intake & Output 11/06/16 11/07/16 11/07/16 22:59 06:59 14:59 Intake Total 135 50 400 Output Total 200 600 530 Balance -65 -550 -130 Weight 158 lb 6.4 oz Intake: Intake, IV Amount 135 50 Left Distal Port Wrist 100 Left Forearm 50 Left Wrist 35 Oral 50 350 Output: Urine 200 600 530 Urine, Voided 200 600 530 Other: # Voids Urine, Voided 1 # Bowel Movements 1 1 - Physical Exam Head: Positive for: Atraumatic, Normocephalic Pupils: Positive for: PERRL Extroacular Muscles: Positive for: EOMI Conjunctiva: Positive for: Normal Mouth: Positive for: Moist Mucous Membranes Respiratory/Chest: Positive for: Clear to Auscultation Cardiovascular: Positive for: Regular Rate and Rhythm Abdomen: Positive for: Normal Bowel Sounds. Negative for: Tenderness, Distention, Peritoneal Signs Neurological: Positive for: GCS=15, CN II-XII Intact, Speech Normal Psychiatric: Positive for: Alert, Oriented x 3 - Medications Active Medications: Active Medications Generic Name Dose Route Start Last Admin Trade Name Freq PRN Reason Stop Dose Admin Carvedilol 3.125 mg 11/06/16 18:00 11/07/16 10:00 Coreg PO 3.125 mg BID PATIENCE Administration Enoxaparin Sodium 40 mg 11/07/16 11:00 Lovenox SC DAILY PATIENCE Folic Acid 1 mg 11/06/16 18:00 11/07/16 10:00 Folic Acid PO 1 mg DAILY PATIENCE Administration Levetiracetam 500 mg/ Sodium 105 mls @ 420 mls/hr 11/07/16 10:00 11/07/16 10: 00 Chloride IVPB 420 mls/hr Q12H PATIENCE Administration Insulin Aspart 0 unit 11/06/16 18:00 11/07/16 11:46 Novolog SC 4 unit Q6H PATIENCE Administration Protocol Lorazepam 1 mg 11/06/16 17:55 Ativan IVP Q4H PRN Symptoms of alcohol withdrawl Multivitamins 1 tab 11/06/16 18:00 11/07/16 10:00 Hexavitamin PO 1 tab DAILY PATIENCE Administration Prednisolone 30 mg 11/07/16 12:30 Prednisolone PO DAILY PATIENCE Thiamine HCl 100 mg 11/06/16 18:00 11/07/16 10:00 Vitamin B1 Tab PO 100 mg DAILY PATIENCE Administration - Patient Studies Lab Studies: Lab Studies 11/07/16 11/07/16 11/07/16 Range/Units 11:40 06:19 06:19 WBC (4.8-10.8) K/uL RBC (4.40-5.90) Mil/uL Hgb (12.0-18.0) g/dL Hct (35.0-51.0) % MCV (80.0-94.0) fL MCH (27.0-31.0) pg MCHC (33.0-37.0) g/dL RDW (11.5-14.5) % Plt Count (130-400) K/uL MPV (7.2-11.7) fL Neut % (Auto) (50.0-75.0) % Lymph % (Auto) (20.0-40.0) % [place] % (Auto) (0.0-10.0) % Eos % (Auto) (0.0-4.0) % Baso % (Auto) (0.0-2.0) % Neut # (1.8-7.0) K/uL Lymph # (1.0-4.3) K/uL [place] # (0.0-0.8) K/uL Eos # (0.0-0.7) K/uL Baso # (0.0-0.2) K/uL Neutrophils % (Manual) (50-75) % Band Neutrophils % (0-2) % Lymphocytes % (Manual) (20-40) % Monocytes % (Manual) (0-10) % Platelet Estimate (NORMAL) Large Platelets Polychromasia Hypochromasia (manual) Poikilocytosis (manual Anisocytosis (manual) Macrocytosis (manual) Target Cells Tear Drop Cells Ovalocytes PT 16.0 H (9.7-12.2) SECONDS INR 1.4 APTT 25 (21-34) SECONDS Sodium (132-148) mmol/L Potassium (3.6-5.2) mmol/L Chloride (98-107) mmol/L Carbon Dioxide (22-30) mmol/L Anion Gap (10-20) BUN (9-20) mg/dL Creatinine (0.8-1.5) MG/DL Est GFR ( Amer) Est GFR (Non-Af Amer) POC Glucose (mg/dL) 271 H (65-110) mg/dL Random Glucose (75-110) mg/dL Calcium (8.6-10.4) mg/dl Phosphorus (2.5-4.5) mg/dL Magnesium (1.6-2.3) mg/dL Total Bilirubin (0.2-1.3) mg/dL AST (17-59) U/L ALT (21-72) U/L Alkaline Phosphatase (38-126) U/L Ammonia 87 H (9-33) umol/L Total Creatine Kinase (55-170) U/L Total Protein (6.3-8.3) g/dL Albumin (3.5-5.0) g/dL Globulin (2.2-3.9) gm/dL Albumin/Globulin Ratio (1.0-2.1) Digoxin (0.8-2.0) ng/mL Acetaminophen (10.0-30.0) ug/mL 11/07/16 11/07/16 11/07/16 Range/Units 06:19 06:19 05:43 WBC 19.2 H (4.8-10.8) K/uL RBC 4.33 L (4.40-5.90) Mil/uL Hgb 13.2 (12.0-18.0) g/dL Hct 40.1 (35.0-51.0) % MCV 92.5 (80.0-94.0) fL MCH 30.6 (27.0-31.0) pg MCHC 33.0 (33.0-37.0) g/dL RDW 16.1 H (11.5-14.5) % Plt Count 251 (130-400) K/uL MPV 9.8 (7.2-11.7) fL Neut % (Auto) 84.6 H (50.0-75.0) % Lymph % (Auto) 9.5 L (20.0-40.0) % [place] % (Auto) 5.7 (0.0-10.0) % Eos % (Auto) 0.1 (0.0-4.0) % Baso % (Auto) 0.1 (0.0-2.0) % Neut # 16.2 H (1.8-7.0) K/uL Lymph # 1.8 (1.0-4.3) K/uL [place] # 1.1 H (0.0-0.8) K/uL Eos # 0.0 (0.0-0.7) K/uL Baso # 0.0 (0.0-0.2) K/uL Neutrophils % (Manual) 82 H (50-75) % Band Neutrophils % 3 H (0-2) % Lymphocytes % (Manual) 6 L (20-40) % Monocytes % (Manual) 9 (0-10) % Platelet Estimate Normal (NORMAL) Large Platelets Present Polychromasia Slight Hypochromasia (manual) Slight Poikilocytosis (manual Slight Anisocytosis (manual) Slight Macrocytosis (manual) Slight Target Cells Slight Tear Drop Cells Slight Ovalocytes Slight PT (9.7-12.2) SECONDS INR APTT (21-34) SECONDS Sodium 124 L (132-148) mmol/L Potassium 4.9 (3.6-5.2) mmol/L Chloride 92 L (98-107) mmol/L Carbon Dioxide 21 L (22-30) mmol/L Anion Gap 16 (10-20) BUN 24 H (9-20) mg/dL Creatinine 1.3 (0.8-1.5) MG/DL Est GFR ( Amer) > 60 Est GFR (Non-Af Amer) 57 POC Glucose (mg/dL) 247 H (65-110) mg/dL Random Glucose 221 H (75-110) mg/dL Calcium 7.8 L (8.6-10.4) mg/dl Phosphorus 4.4 (2.5-4.5) mg/dL Magnesium 1.7 (1.6-2.3) mg/dL Total Bilirubin 6.4 H (0.2-1.3) mg/dL AST 6543 H (17-59) U/L ALT 3635 H (21-72) U/L Alkaline Phosphatase 359 H (38-126) U/L Ammonia (9-33) umol/L Total Creatine Kinase (55-170) U/L Total Protein 6.2 L (6.3-8.3) g/dL Albumin 3.1 L (3.5-5.0) g/dL Globulin 3.1 (2.2-3.9) gm/dL Albumin/Globulin Ratio 1.0 (1.0-2.1) Digoxin (0.8-2.0) ng/mL Acetaminophen (10.0-30.0) ug/mL 11/07/16 11/07/16 11/06/16 Range/Units 00:24 00:24 23:19 WBC (4.8-10.8) K/uL RBC (4.40-5.90) Mil/uL Hgb (12.0-18.0) g/dL Hct (35.0-51.0) % MCV (80.0-94.0) fL MCH (27.0-31.0) pg MCHC (33.0-37.0) g/dL RDW (11.5-14.5) % Plt Count (130-400) K/uL MPV (7.2-11.7) fL Neut % (Auto) (50.0-75.0) % Lymph % (Auto) (20.0-40.0) % [place] % (Auto) (0.0-10.0) % Eos % (Auto) (0.0-4.0) % Baso % (Auto) (0.0-2.0) % Neut # (1.8-7.0) K/uL Lymph # (1.0-4.3) K/uL [place] # (0.0-0.8) K/uL Eos # (0.0-0.7) K/uL Baso # (0.0-0.2) K/uL Neutrophils % (Manual) (50-75) % Band Neutrophils % (0-2) % Lymphocytes % (Manual) (20-40) % Monocytes % (Manual) (0-10) % Platelet Estimate (NORMAL) Large Platelets Polychromasia Hypochromasia (manual) Poikilocytosis (manual Anisocytosis (manual) Macrocytosis (manual) Target Cells Tear Drop Cells Ovalocytes PT (9.7-12.2) SECONDS INR APTT (21-34) SECONDS Sodium (132-148) mmol/L Potassium (3.6-5.2) mmol/L Chloride (98-107) mmol/L Carbon Dioxide (22-30) mmol/L Anion Gap (10-20) BUN (9-20) mg/dL Creatinine (0.8-1.5) MG/DL Est GFR ( Amer) Est GFR (Non-Af Amer) POC Glucose (mg/dL) 149 H (65-110) mg/dL Random Glucose (75-110) mg/dL Calcium (8.6-10.4) mg/dl Phosphorus (2.5-4.5) mg/dL Magnesium (1.6-2.3) mg/dL Total Bilirubin (0.2-1.3) mg/dL AST (17-59) U/L ALT (21-72) U/L Alkaline Phosphatase (38-126) U/L Ammonia (9-33) umol/L Total Creatine Kinase 57 (55-170) U/L Total Protein (6.3-8.3) g/dL Albumin (3.5-5.0) g/dL Globulin (2.2-3.9) gm/dL Albumin/Globulin Ratio (1.0-2.1) Digoxin (0.8-2.0) ng/mL Acetaminophen < 10.0 L (10.0-30.0) ug/mL 11/06/16 11/06/16 11/06/16 Range/Units 22:33 22:33 18:04 WBC (4.8-10.8) K/uL RBC (4.40-5.90) Mil/uL Hgb (12.0-18.0) g/dL Hct (35.0-51.0) % MCV (80.0-94.0) fL MCH (27.0-31.0) pg MCHC (33.0-37.0) g/dL RDW (11.5-14.5) % Plt Count (130-400) K/uL MPV (7.2-11.7) fL Neut % (Auto) (50.0-75.0) % Lymph % (Auto) (20.0-40.0) % [place] % (Auto) (0.0-10.0) % Eos % (Auto) (0.0-4.0) % Baso % (Auto) (0.0-2.0) % Neut # (1.8-7.0) K/uL Lymph # (1.0-4.3) K/uL [place] # (0.0-0.8) K/uL Eos # (0.0-0.7) K/uL Baso # (0.0-0.2) K/uL Neutrophils % (Manual) (50-75) % Band Neutrophils % (0-2) % Lymphocytes % (Manual) (20-40) % Monocytes % (Manual) (0-10) % Platelet Estimate (NORMAL) Large Platelets Polychromasia Hypochromasia (manual) Poikilocytosis (manual Anisocytosis (manual) Macrocytosis (manual) Target Cells Tear Drop Cells Ovalocytes PT (9.7-12.2) SECONDS INR APTT (21-34) SECONDS Sodium 131 L (132-148) mmol/L Potassium 5.3 H (3.6-5.2) mmol/L Chloride 98 (98-107) mmol/L Carbon Dioxide 18 L (22-30) mmol/L Anion Gap 20 (10-20) BUN 14 (9-20) mg/dL Creatinine 1.1 (0.8-1.5) MG/DL Est GFR ( Amer) > 60 Est GFR (Non-Af Amer) > 60 POC Glucose (mg/dL) 162 H (65-110) mg/dL Random Glucose 158 H (75-110) mg/dL Calcium 8.1 L (8.6-10.4) mg/dl Phosphorus 5.6 H (2.5-4.5) mg/dL Magnesium 1.8 (1.6-2.3) mg/dL Total Bilirubin 4.8 H (0.2-1.3) mg/dL AST 1946 H (17-59) U/L ALT 1477 H (21-72) U/L Alkaline Phosphatase 338 H D (38-126) U/L Ammonia (9-33) umol/L Total Creatine Kinase (55-170) U/L Total Protein 6.3 (6.3-8.3) g/dL Albumin 3.2 L (3.5-5.0) g/dL Globulin 3.2 (2.2-3.9) gm/dL Albumin/Globulin Ratio 1.0 (1.0-2.1) Digoxin 0.4 L (0.8-2.0) ng/mL Acetaminophen (10.0-30.0) ug/mL Laboratory Results - last 24 hr 11/06/16 11/06/16 11/06/16 18:04 22:33 22:33 WBC RBC Hgb Hct MCV MCH MCHC RDW Plt Count MPV Neut % (Auto) Lymph % (Auto) [place] % (Auto) Eos % (Auto) Baso % (Auto) Neut # Lymph # [place] # Eos # Baso # Neutrophils % (Manual) Band Neutrophils % Lymphocytes % (Manual) Monocytes % (Manual) Platelet Estimate Large Platelets Polychromasia Hypochromasia (manual) Poikilocytosis (manual Anisocytosis (manual) Macrocytosis (manual) Target Cells Tear Drop Cells Ovalocytes PT INR APTT Sodium 131 L Potassium 5.3 H Chloride 98 Carbon Dioxide 18 L Anion Gap 20 BUN 14 Creatinine 1.1 Est GFR ( Amer) > 60 Est GFR (Non-Af Amer) > 60 POC Glucose (mg/dL) 162 H Random Glucose 158 H Calcium 8.1 L Phosphorus 5.6 H Magnesium 1.8 Total Bilirubin 4.8 H AST 1946 H ALT 1477 H Alkaline Phosphatase 338 H D Ammonia Total Creatine Kinase Total Protein 6.3 Albumin 3.2 L Globulin 3.2 Albumin/Globulin Ratio 1.0 Digoxin 0.4 L Acetaminophen 11/06/16 11/07/16 11/07/16 23:19 00:24 00:24 WBC RBC Hgb Hct MCV MCH MCHC RDW Plt Count MPV Neut % (Auto) Lymph % (Auto) [place] % (Auto) Eos % (Auto) Baso % (Auto) Neut # Lymph # [place] # Eos # Baso # Neutrophils % (Manual) Band Neutrophils % Lymphocytes % (Manual) Monocytes % (Manual) Platelet Estimate Large Platelets Polychromasia Hypochromasia (manual) Poikilocytosis (manual Anisocytosis (manual) Macrocytosis (manual) Target Cells Tear Drop Cells Ovalocytes PT INR APTT Sodium Potassium Chloride Carbon Dioxide Anion Gap BUN Creatinine Est GFR ( Amer) Est GFR (Non-Af Amer) POC Glucose (mg/dL) 149 H Random Glucose Calcium Phosphorus Magnesium Total Bilirubin AST ALT Alkaline Phosphatase Ammonia Total Creatine Kinase 57 Total Protein Albumin Globulin Albumin/Globulin Ratio Digoxin Acetaminophen < 10.0 L 11/07/16 11/07/16 11/07/16 05:43 06:19 06:19 WBC 19.2 H RBC 4.33 L Hgb 13.2 Hct 40.1 MCV 92.5 MCH 30.6 MCHC 33.0 RDW 16.1 H Plt Count 251 MPV 9.8 Neut % (Auto) 84.6 H Lymph % (Auto) 9.5 L [place] % (Auto) 5.7 Eos % (Auto) 0.1 Baso % (Auto) 0.1 Neut # 16.2 H Lymph # 1.8 [place] # 1.1 H Eos # 0.0 Baso # 0.0 Neutrophils % (Manual) 82 H Band Neutrophils % 3 H Lymphocytes % (Manual) 6 L Monocytes % (Manual) 9 Platelet Estimate Normal Large Platelets Present Polychromasia Slight Hypochromasia (manual) Slight Poikilocytosis (manual Slight Anisocytosis (manual) Slight Macrocytosis (manual) Slight Target Cells Slight Tear Drop Cells Slight Ovalocytes Slight PT INR APTT Sodium 124 L Potassium 4.9 Chloride 92 L Carbon Dioxide 21 L Anion Gap 16 BUN 24 H Creatinine 1.3 Est GFR ( Amer) > 60 Est GFR (Non-Af Amer) 57 POC Glucose (mg/dL) 247 H Random Glucose 221 H Calcium 7.8 L Phosphorus 4.4 Magnesium 1.7 Total Bilirubin 6.4 H AST 6543 H ALT 3635 H Alkaline Phosphatase 359 H Ammonia Total Creatine Kinase Total Protein 6.2 L Albumin 3.1 L Globulin 3.1 Albumin/Globulin Ratio 1.0 Digoxin Acetaminophen 11/07/16 11/07/16 11/07/16 06:19 06:19 11:40 WBC RBC Hgb Hct MCV MCH MCHC RDW Plt Count MPV Neut % (Auto) Lymph % (Auto) [place] % (Auto) Eos % (Auto) Baso % (Auto) Neut # Lymph # [place] # Eos # Baso # Neutrophils % (Manual) Band Neutrophils % Lymphocytes % (Manual) Monocytes % (Manual) Platelet Estimate Large Platelets Polychromasia Hypochromasia (manual) Poikilocytosis (manual Anisocytosis (manual) Macrocytosis (manual) Target Cells Tear Drop Cells Ovalocytes PT 16.0 H INR 1.4 APTT 25 Sodium Potassium Chloride Carbon Dioxide Anion Gap BUN Creatinine Est GFR ( Amer) Est GFR (Non-Af Amer) POC Glucose (mg/dL) 271 H Random Glucose Calcium Phosphorus Magnesium Total Bilirubin AST ALT Alkaline Phosphatase Ammonia 87 H Total Creatine Kinase Total Protein Albumin Globulin Albumin/Globulin Ratio Digoxin Acetaminophen Review of Systems - Review of Systems All systems: reviewed and no additional remarkable complaints except (nothing) Critical Care Progress Note - Nutrition Nutrition: Nutrition Category Date Time Status Heart Healthy Diet [DIET] Diets 11/07/16 Breakfast Active Assessment/Plan (1) Dyspnea Assessment and plan: 56yo M. PMHx systolic CHF (EF-15%), possible alcoholic CM, CAD, CABG, PPM, COPD , HTN, seizure disorder, polysubstance abuse, DM type 2. p/w SOB and chest pain , afib, then had seizure episode in ED. Neuro: Alert and oriented, continue Keppra 500mg IV q12h, no further seizure episode. CIWA protocol for possible EtOH withdrawal. Pulm: Acute respiratory failure improved, now off of BIPAP. CV: Hemodynamically stable. AFib now rate controlled with carvedilol po, and metoprolol IV prn. Hem: No acute issues Renal: No acute issues, urine output wnl, will monitor. Endo: DM type II, short acting insulin sliding scale for coverage. GI: heart healthy diet, moderate carb consistent. Alcoholic hepatitis started on prednisolone 30mg po daily, GI fellow consulted. ID: No acute issues, leukocytosis SIRS and steroids, sent off blood cultures, will monitor for sources of sepsis. DVT proph - Lovenox GI proph - not currently indicated Code status - full code Critical Care Time spent 35 minutes Multi-disciplinary rounds were performed with house staff, nursing, speech therapy, respiratory therapy, pharmacy and nutrition with integrated input from the primary team/attending and other consulting services. The documented time is cumulative and includes review of patient data/exams/labs/chart review and examination of the patient on rounds and throughout the day; time is exclusive of any procedures or teaching time. Current Visit: Yes Status: Acute
[2016-11-07] MEDS: Enoxaparin 40 mg Syringe SC SCH ×2 (13:35→13:39)
[2016-11-07] MEDS ORDERED: Metoprolol 1 mg/ml Inj IVP PRN (13:49)
[2016-11-07] MEDS ORDERED: Levalbuterol 0.63 MG/3 ML Inhal Soln UD INH PRN (21:14)
[2016-11-07 22:51] VITALS: PULSE 141
[2016-11-07] MEDS ORDERED: oxyCODONE 5 mg Immediate Release Tab PO STA (22:53)
[2016-11-08 06:10] LABS: BASO % 0.1 % (0.0-2.0); HEMATOCRIT 40.2 % (35.0-51.0); LYMPH # 0.7 K/uL (1.0-4.3); LYMPH % 2.6 % (20.0-40.0); MEAN CELL VOLUME 92.5 fL (80.0-94.0); MEAN CORPUSCULAR HEMOGLOBIN 29.9 pg (27.0-31.0); MEAN CORPUSCULAR HGB CONC 32.3 g/dL (33.0-37.0); MEAN PLATELET VOLUME 9.9 fL (7.2-11.7); MONO # 1.5 K/uL (0.0-0.8); MONO % 5.8 % (0.0-10.0); NRBC % 0.6 % (0.0-2.0); PLATELET COUNT 225 K/uL (130-400); RED CELL DISTRIBUTION WIDTH 16.1 % (11.5-14.5); WHITE BLOOD COUNT 25.4 K/uL (4.8-10.8)
[2016-11-08 06:26] LABS: CHLORIDE 91 mmol/L (98-107); SODIUM 122 mmol/L (132-148)
[2016-11-08 06:27] LABS: POTASSIUM 4.7 mmol/L (3.6-5.2)
[2016-11-08 06:29] LABS: ALKALINE PHOSPHATASE 365 U/L (38-126); BILIRUBIN,TOTAL 5.7 mg/dL (0.2-1.3); CARBON DIOXIDE 24 mmol/L (22-30); GFR AFRICAN-AMERICAN > 60
[2016-11-08 06:30] LABS: BLOOD UREA NITROGEN 34 mg/dL (9-20); CALCIUM 8.1 mg/dl (8.6-10.4); GLUCOSE,RANDOM 159 mg/dL (75-110)
[2016-11-08 07:05] LABS: AST/SGOT 2450 U/L (17-59)
[2016-11-08 07:15] LABS: ALT/SGPT 2558 U/L (21-72)
[2016-11-08 07:19] VITALS: O2SAT 100
[2016-11-08] MEDS ORDERED: (Novolog) Insulin Aspart, Recombinant 100 u/ml 10 ml vial SC SCH (07:30)
--- NOTE | 2016-11-08 07:45 | RAD ---
HISTORY: sob COMPARISON: Portable chest 11/06/2016. FINDINGS: LUNGS: No active pulmonary disease. PLEURA: No significant pleural effusion identified, no pneumothorax apparent. CARDIOVASCULAR: Cardiomegaly appears stable. No definite pulmonary vascular derangement is appreciated at this time. Unipolar pacemaker/deployed defibrillator again identified. OSSEOUS STRUCTURES: Sternotomy wires again evident. VISUALIZED UPPER ABDOMEN: Normal. OTHER FINDINGS: None. IMPRESSION: No acute cardiopulmonary disease appreciable. Stable cardiomegaly is noted.
[2016-11-08] MEDS ORDERED: Budesonide 0.5 mg/2 ml Inhal Susp UD INH SCH (08:00)
[2016-11-08 08:22] LABS: NEUTROPHIL 92 % (50-75); NUCLEATED RED BLOOD CELL 1 % (0-0); TOTAL CELLS COUNTED 100
--- NOTE | 2016-11-08 08:28 | HP ---
HISTORY OF PRESENT ILLNESS: The patient is a 56 year old male, complaints of arrhythmia, alcohol intoxication, seizure. The patient came to the ER, evaluated, advised the patient to ICU. The patient has been . PHYSICAL EXAMINATION VITAL SIGNS: Temperature 97.6, pulse is 100 and blood pressure 120/80. HEENT: Within normal limits. NECK: Supple. CHEST: Symmetrical. HEART: Regular. ABDOMEN: Soft. EXTREMITIES: No edema. ASSESSMENT AND PLAN: Alcohol intoxication, seizure. Patient bed rest, . Juanjose Burkett MD
[2016-11-08 09:10] VITALS: BP 107/83
[2016-11-08] MEDS: Multiple Vitamins Tab PO SCH (09:12)
[2016-11-08] MEDS: Enoxaparin 40 mg Syringe SC SCH (09:16)
[2016-11-08] MEDS ORDERED: PrednisoLONE 6 MG/2 ML SYR PO SCH (09:33)
[2016-11-08] MEDS: levETIRAcetam 500 MG in Sodium Chloride 0.9% 100 ML IVPB SCH (09:58)
[2016-11-08] MEDS ORDERED: Azithromycin 500 MG in Sodium Chloride 0.9% 250 ML IVPB SCH (10:00)
[2016-11-08] MEDS ORDERED: Albuterol 0.042% Inhal Sol (1.25 mg/3 mL) UD INH PRN (11:30)
--- NOTE | 2016-11-08 12:37 | CP.PCM.CON ---
<Sujatha Mustafa - Last Filed: 11/08/16 12:27> History of Present Illness - History of Present Illness History of Present Illness: GI Fellow PGY4 Consult Note This is a 56yM with pmhx of Afib, Hep C, Asthma, CHF EF 15% s/p AICD, COPD, HTN , HLD, CAD s/p stents, CABG, Polysubstance abuse, Alcohol abuse pw co SOB, CP, nausea and vomiting. In the ER pt was tachypneic and was placed on BIPAP, pt also had a seizure in the ER and given IV Ativan and admitted to ICU for observation. Pt reports being diagnosed with Hep C many years when he was using IVD and sharing needles, positive Hep C antibody from May 2015 in EMR. Pt never sought treatment for Hep C. Pt has a CT A/P with IV contrast from April 2016 showing heterogeneous enhancement of liver with no lesions. Pt reports drinking 3-4 24oz beers daily with intermittent hard liquor unable to quantify. Denies prior EGD/colonoscopy. ROS: A 12pt ROS was obtained and was negative PmHx: As stated in HPI PsHx: As stated in HPI FHx: Denies colon cancer SHx: Lives in [place], drinks 3-4 24oz beers daily with intermittent hard liquor , denies current IVDA Past Patient History - Infectious Disease Hx of Infectious Diseases: None - Tetanus Immunizations Tetanus Immunization: Unknown - Past Medical History & Family History Past Medical History?: Yes - Past Social History Smoking Status: Never Smoked - CARDIAC Hx Atrial Fibrillation: Yes Hx Cardia Arrhythmia: Yes Hx Congestive Heart Failure: Yes Hx Hypercholesterolemia: Yes Hx Hypertension: Yes Hx Pacemaker: Yes - PULMONARY Hx Respiratory Disorders: Yes Hx Asthma: Yes Hx Chronic Obstructive Pulmonary Disease (COPD): Yes Hx Pneumonia: Yes - NEUROLOGICAL Hx Neurological Disorder: Yes Hx Seizures: Yes - HEENT Hx HEENT Problems: No - RENAL Hx Chronic Kidney Disease: No - ENDOCRINE/METABOLIC Hx Endocrine Disorders: Yes Hx Diabetes Mellitus Type 2: Yes - HEMATOLOGICAL/ONCOLOGICAL Hx Blood Disorders: No - INTEGUMENTARY Hx Dermatological Problems: No - MUSCULOSKELETAL/RHEUMATOLOGICAL Hx Musculoskeletal Disorders: Yes Hx Falls: Yes - GASTROINTESTINAL Hx Gastrointestinal Disorders: No - GENITOURINARY/GYNECOLOGICAL Hx Genitourinary Disorders: No - PSYCHIATRIC Hx Substance Use: Yes - SURGICAL HISTORY Hx Surgeries: Yes Hx Coronary Artery Bypass Graft: Yes Hx Coronary Stent: Yes (4) Other/Comment: aicd/pacemaker placement - ANESTHESIA Hx Anesthesia: Yes Hx Anesthesia Reactions: No Hx Malignant Hyperthermia: No Meds Allergies/Adverse Reactions: Allergies Allergy/AdvReac Type Severity Reaction Status Date / Time No Known Allergies Allergy Verified 09/16/16 08:54 - Medications Medications: Current Medications Albuterol Sulfate (Albuterol 0.042% Inhal Hedy (1.25mg/3ml) Ud) 1.25 mg INH RQ6 PRN PRN Reason: Wheezing Budesonide (Pulmicort Respules) 0.5 mg INH RQ12 [facility] Last Admin: 11/08/16 08:10 Dose: 0.5 mg Carvedilol (Coreg) 6.25 mg PO BID [facility] Last Admin: 11/08/16 09:11 Dose: 6.25 mg Digoxin (Lanoxin) 0.125 mg PO DAILY@1800 [facility]IENCE Enoxaparin Sodium (Lovenox) 40 mg SC DAILY [facility] Last Admin: 11/08/16 09:16 Dose: Not Given Folic Acid (Folic Acid) 1 mg PO DAILY [facility] Last Admin: 11/08/16 09:12 Dose: 1 mg Levetiracetam 500 mg/ Sodium (Chloride) 105 mls @ 420 mls/hr IVPB Q12H [facility] Last Admin: 11/08/16 09:58 Dose: 420 mls/hr Azithromycin 500 mg/ Sodium (Chloride) 250 mls @ 250 mls/hr IVPB DAILY [facility] Last Admin: 11/08/16 10:25 Dose: 250 mls/hr Ceftriaxone Sodium 1 gm/ (Sodium Chloride) 100 mls @ 100 mls/hr IVPB Q24H [facility] Insulin Aspart (Novolog) 0 unit SC ACHS [facility] PRN Reason: Protocol Last Admin: 11/08/16 09:41 Dose: 2 unit Lorazepam (Ativan) 1 mg IVP Q4H PRN PRN Reason: Symptoms of alcohol withdrawl Last Admin: 11/08/16 00:52 Dose: 1 mg Metoprolol Tartrate (Lopressor) 5 mg IVP Q6H PRN PRN Reason: Heart rate Multivitamins (Hexavitamin) 1 tab PO DAILY [facility] Last Admin: 11/08/16 09:12 Dose: 1 tab Prednisolone (Prednisolone) 20 mg PO DAILY [facility] Last Admin: 11/08/16 10:28 Dose: 20 mg Thiamine HCl (Vitamin B1 Tab) 100 mg PO DAILY [facility] Last Admin: 11/08/16 09:13 Dose: 100 mg Physical Exam - Constitutional Appears: Unkempt, Older Than Stated Age - Head Exam Head Exam: ATRAUMATIC, NORMAL INSPECTION, NORMOCEPHALIC - Eye Exam Eye Exam: EOMI, Normal appearance, PERRL. absent: Scleral icterus Pupil Exam: NORMAL ACCOMODATION, PERRL - ENT Exam ENT Exam: Mucous Membranes Moist, Normal Exam - Neck Exam Neck exam: Positive for: Normal Inspection - Respiratory Exam Respiratory Exam: Wheezes - Cardiovascular Exam Cardiovascular Exam: Irregular Rhythm - GI/Abdominal Exam GI & Abdominal Exam: Normal Bowel Sounds, Soft. absent: Distended, Organomegaly , Tenderness - Rectal Exam Rectal Exam: Deferred - Extremities Exam Extremities exam: Positive for: normal inspection. Negative for: pedal edema - Back Exam Back exam: NORMAL INSPECTION - Neurological Exam Neurological exam: Abnormal Gait, Alert - Psychiatric Exam Psychiatric exam: Flat Affect - Skin Skin Exam: Dry, Intact, Normal Color, Warm Results - Vital Signs Recent Vital Signs: Last Vital Signs Temp 97.8 F 11/08/16 04:00 Pulse 82 11/08/16 09:04 Resp 14 11/08/16 09:04 BP 107/83 11/08/16 09:04 Pulse Ox 100 11/08/16 07:00 - Labs Result Diagrams: 11/08/16 06:00 11/08/16 06:00 Labs: Laboratory Results - last 24 hr 11/07/16 11/07/16 11/08/16 16:11 21:11 06:00 WBC RBC Hgb Hct MCV MCH MCHC RDW Plt Count MPV Neut % (Auto) Lymph % (Auto) [place] % (Auto) Eos % (Auto) Baso % (Auto) Neut # Lymph # [place] # Eos # Baso # Neutrophils % (Manual) Lymphocytes % (Manual) Monocytes % (Manual) Nucleated RBC % Platelet Estimate Poikilocytosis (manual Anisocytosis (manual) Ovalocytes Sodium Potassium Chloride Carbon Dioxide Anion Gap BUN Creatinine Est GFR ( Amer) Est GFR (Non-Af Amer) POC Glucose (mg/dL) 192 H 165 H Random Glucose Calcium Total Bilirubin AST ALT Alkaline Phosphatase Ammonia 46 H D Total Creatine Kinase Total Protein Albumin Globulin Albumin/Globulin Ratio Digoxin 11/08/16 11/08/16 11/08/16 06:00 06:00 06:00 WBC 25.4 H RBC 4.35 L Hgb 13.0 Hct 40.2 MCV 92.5 MCH 29.9 MCHC 32.3 L RDW 16.1 H Plt Count 225 MPV 9.9 Neut % (Auto) 91.5 H Lymph % (Auto) 2.6 L [place] % (Auto) 5.8 Eos % (Auto) 0.0 Baso % (Auto) 0.1 Neut # 23.2 H Lymph # 0.7 L [place] # 1.5 H Eos # 0.0 Baso # 0.0 Neutrophils % (Manual) 92 H Lymphocytes % (Manual) 1 L Monocytes % (Manual) 7 Nucleated RBC % 1 H Platelet Estimate Normal Poikilocytosis (manual Slight Anisocytosis (manual) Slight Ovalocytes Slight Sodium 122 L Potassium 4.7 Chloride 91 L Carbon Dioxide 24 Anion Gap 12 BUN 34 H Creatinine 0.9 Est GFR ( Amer) > 60 Est GFR (Non-Af Amer) > 60 POC Glucose (mg/dL) Random Glucose 159 H Calcium 8.1 L Total Bilirubin 5.7 H AST 2450 H ALT 2558 H Alkaline Phosphatase 365 H Ammonia Total Creatine Kinase 73 Total Protein 6.0 L Albumin 3.0 L Globulin 2.9 Albumin/Globulin Ratio 1.0 Digoxin 1.2 11/08/16 09:09 WBC RBC Hgb Hct MCV MCH MCHC RDW Plt Count MPV Neut % (Auto) Lymph % (Auto) [place] % (Auto) Eos % (Auto) Baso % (Auto) Neut # Lymph # [place] # Eos # Baso # Neutrophils % (Manual) Lymphocytes % (Manual) Monocytes % (Manual) Nucleated RBC % Platelet Estimate Poikilocytosis (manual Anisocytosis (manual) Ovalocytes Sodium Potassium Chloride Carbon Dioxide Anion Gap BUN Creatinine Est GFR ( Amer) Est GFR (Non-Af Amer) POC Glucose (mg/dL) 186 H Random Glucose Calcium Total Bilirubin AST ALT Alkaline Phosphatase Ammonia Total Creatine Kinase Total Protein Albumin Globulin Albumin/Globulin Ratio Digoxin Assessment & Plan - Assessment and Plan (Free Text) Assessment: This is a 56yM pw SOB and Chest pain for 2days. 1. Alcoholic Hepatitis 2. Transaminitis 3. AECOPD 4. Hx CAD 5. 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 Hep C Plan: -Continue supportive care and monitor for DTs -Alcoholic Hepatitis MELD 28/Discriminate Factor 25, no indication for treatment with prednisolone at this time -Transaminitis-multifactorial from polysubstance abuse, Hep C,seizure, will order Abd US Duplex to r/o venous occlusion -Monitor LFTs -Will order Hepatitis panel, Hep C viral load, and autoimmune workup -Will order CT Liver Protocol to r/o liver lesion with hx Hep C -Pt will need outpt follow up for possible treatment of Hep C, screening colonoscopy -Alcohol cessation counseling given to pt <Patti Willis MD - Last Filed: 11/08/16 16:20> Results - Vital Signs Recent Vital Signs: Last Vital Signs Temp 97.4 F L 11/08/16 08:00 Pulse 89 11/08/16 11:00 Resp 12 11/08/16 11:00 BP 107/83 11/08/16 09:04 Pulse Ox 100 11/08/16 07:00 - Labs Result Diagrams: 11/08/16 06:00 11/08/16 06:00 Labs: Laboratory Results - last 24 hr 11/07/16 11/07/16 11/08/16 16:11 21:11 06:00 WBC RBC Hgb Hct MCV MCH MCHC RDW Plt Count MPV Neut % (Auto) Lymph % (Auto) [place] % (Auto) Eos % (Auto) Baso % (Auto) Neut # Lymph # [place] # Eos # Baso # Neutrophils % (Manual) Lymphocytes % (Manual) Monocytes % (Manual) Nucleated RBC % Platelet Estimate Poikilocytosis (manual Anisocytosis (manual) Ovalocytes Sodium Potassium Chloride Carbon Dioxide Anion Gap BUN Creatinine Est GFR ( Amer) Est GFR (Non-Af Amer) POC Glucose (mg/dL) 192 H 165 H Random Glucose Calcium Total Bilirubin AST ALT Alkaline Phosphatase Ammonia 46 H D Total Creatine Kinase Total Protein Albumin Globulin Albumin/Globulin Ratio Digoxin 11/08/16 11/08/16 11/08/16 06:00 06:00 06:00 WBC 25.4 H RBC 4.35 L Hgb 13.0 Hct 40.2 MCV 92.5 MCH 29.9 MCHC 32.3 L RDW 16.1 H Plt Count 225 MPV 9.9 Neut % (Auto) 91.5 H Lymph % (Auto) 2.6 L [place] % (Auto) 5.8 Eos % (Auto) 0.0 Baso % (Auto) 0.1 Neut # 23.2 H Lymph # 0.7 L [place] # 1.5 H Eos # 0.0 Baso # 0.0 Neutrophils % (Manual) 92 H Lymphocytes % (Manual) 1 L Monocytes % (Manual) 7 Nucleated RBC % 1 H Platelet Estimate Normal Poikilocytosis (manual Slight Anisocytosis (manual) Slight Ovalocytes Slight Sodium 122 L Potassium 4.7 Chloride 91 L Carbon Dioxide 24 Anion Gap 12 BUN 34 H Creatinine 0.9 Est GFR ( Amer) > 60 Est GFR (Non-Af Amer) > 60 POC Glucose (mg/dL) Random Glucose 159 H Calcium 8.1 L Total Bilirubin 5.7 H AST 2450 H ALT 2558 H Alkaline Phosphatase 365 H Ammonia Total Creatine Kinase 73 Total Protein 6.0 L Albumin 3.0 L Globulin 2.9 Albumin/Globulin Ratio 1.0 Digoxin 1.2 11/08/16 09:09 WBC RBC Hgb Hct MCV MCH MCHC RDW Plt Count MPV Neut % (Auto) Lymph % (Auto) [place] % (Auto) Eos % (Auto) Baso % (Auto) Neut # Lymph # [place] # Eos # Baso # Neutrophils % (Manual) Lymphocytes % (Manual) Monocytes % (Manual) Nucleated RBC % Platelet Estimate Poikilocytosis (manual Anisocytosis (manual) Ovalocytes Sodium Potassium Chloride Carbon Dioxide Anion Gap BUN Creatinine Est GFR ( Amer) Est GFR (Non-Af Amer) POC Glucose (mg/dL) 186 H Random Glucose Calcium Total Bilirubin AST ALT Alkaline Phosphatase Ammonia Total Creatine Kinase Total Protein Albumin Globulin Albumin/Globulin Ratio Digoxin Attending/Attestation - Attestation I have personally seen and examined this patient.: Yes I have fully participated in the care of the patient.: Yes I have reviewed all pertinent clinical information: Yes Notes (Text): 11/08/16 16:16 Patient seen with GI fellow on round sthis am in MICU. This is a 56 year old M admitted with alcohol intoxication and SOB. He has history of alcohol abuse, Dilated CMP s/p ICD, CABG, Ef 15%, and chronic HCv that he states was treated 30 years ago. His DF on arrival was 25 and hence he does not meet criteria to start steroids for alcoholic hepatitis. His current MELD score is 28. He denies GIB , LE edema, ascites or sleep wake reversal. Transaminemia multifactorial due to ischemic hepatitis, chronic HCv and alcohol abuse. Will send HCV viral load and genotype. Diet low salt, high protein, high calorie. CT with IV contrast triple phase to assess liver. Alcohol cessation likely inpatient rehab
[2016-11-08 13:36] VITALS: TEMP 97.4
[2016-11-08 13:48] VITALS: PULSE 89; RESP 12
[2016-11-08] MEDS ORDERED: Digoxin 125 mcg (0.125 mg) Tab PO SCH (18:00)
--- NOTE | 2016-11-09 22:41 | CARD ---
APPROVED REPORT EKG Measurement Heart [id number] <Conclusion> Aflutter with 2:[address] & T wave abnormality, consider lateral ischemia Abnormal ECG
== END 2016-11-08 11:30 | disposition left against medical advice (07) | DRG 541 ==
LOC: C.ER 14:14 → C.9I 16:13
PROVIDERS: ADMIT Internal Medicine Pulmonary Disease; ATTEND Internal Medicine Pulmonary Disease
PROC: 5A09457 Assistance with Respiratory Ventilation, 24-96 Consecutive Hours, Continuous Positive Airway Pressure (ICD-10-PCS; principal; 2016-11-06)
DX: J44.1 Chronic obstructive pulmonary disease with (acute) exacerbation (principal); I50.22 Chronic systolic (congestive) heart failure; J96.00 Acute respiratory failure, unspecified whether with hypoxia or hypercapnia; I11.0 Hypertensive heart disease with heart failure; K70.10 Alcoholic hepatitis without ascites; I42.6 Alcoholic cardiomyopathy; G40.509 Epileptic seizures related to external causes, not intractable, without status epilepticus; I48.91 Unspecified atrial fibrillation; B18.2 Chronic viral hepatitis C; F10.239 Alcohol dependence with withdrawal, unspecified; E11.9 Type 2 diabetes mellitus without complications; E78.00 Pure hypercholesterolemia, unspecified; E78.5 Hyperlipidemia, unspecified; F10.129 Alcohol abuse with intoxication, unspecified; I25.10 Atherosclerotic heart disease of native coronary artery without angina pectoris; Y90.6 Blood alcohol level of 120-199 mg/100 ml; F10.229 Alcohol dependence with intoxication, unspecified; Z87.01 Personal history of pneumonia (recurrent); Z91.14 Patient's other noncompliance with medication regimen; Z95.0 Presence of cardiac pacemaker; Z95.1 Presence of aortocoronary bypass graft; Z95.5 Presence of coronary angioplasty implant and graft; Z95.810 Presence of automatic (implantable) cardiac defibrillator

== ENCOUNTER 2016-11-14 14:58 | Inpatient (IN) | payer OTHER ==
[2016-11-14 14:59] VITALS: BMI 28.3
--- NOTE | 2016-11-14 15:08 | C.PDOC ---
History Of Present Illness PMHx of CAD w CABG 15 years ago, asplenia, CHF w/ defibrillator, COPD not on home O2, seizure disorder, HTN, HLD, polysubstance abuse (EtOH, crack, and opiods), DM on metformin, who is chronically medically non compliant, presents to the emergency department with complaints of persistent dizziness, onset last night. Patient states he was watching TV, and got up, after which he struck the edge of coffee table with his face. Patient notes generalized weakness. He denies chest pain. States he had a defibrillator placed last year, and has a hx of multiple stents. Patient reports he did not get evaluated for injury yesterday. Time Seen by Provider: 11/14/16 15:01 History Per: Patient History/Exam Limitations: no limitations Onset/Duration Of Symptoms: Days Current Symptoms Are (Timing): Still Present Past Medical History Reviewed: Historical Data, Nursing Documentation, Vital Signs Vital Signs: Last Vital Signs Temp 97.8 F 11/14/16 15:08 Pulse 152 H 11/14/16 16:45 Resp 18 11/14/16 16:45 BP 121/89 11/14/16 16:45 Pulse Ox 99 11/14/16 16:45 - Medical History PMH: Asthma, Atrial Fibrillation, Back Problems, Cardia Arrhythmia, CHF, COPD, Depression, HTN, Hypercholesterolemia, Pneumonia, Seizures Surgical History: CABG, Coronary Stent (4), Pacemaker - [facility] Procedures ASSISTANCE WITH RESPIRATORY VENTILATION, 24-96 HRS, CPAP (11/06/16) CORONAR ARTERIOGR-2 CATH (06/24/14) CORONARY ARTERY STENT INSERTION [id number] (06/24/14) INFLUENZA VACCINATION (04/25/14) INSERTION OF ONE VASCULAR STENT (06/24/14) INTRODUCE OF OTH THERAP SUBST INTO RESP TRACT, VIA OPENING (06/19/15) INTRODUCTION OF SERUM/TOX/VACCINE INTO MUSCLE, PERC APPROACH (01/05/16) LEFT HEART CARDIAC CATH (06/24/14) NEBULIZER THERAPY (07/12/14) PERCUTANEOUS TRANSLUMINAL CORONARY ANGIOPLASTY [PTCA] (06/24/14) PROCEDURE ON SINGLE VESSEL (06/24/14) VACCINATION NEC (04/25/14) Family History: States: No Known Family Hx, Diabetes - Social History Hx Tobacco Use: Yes Hx Alcohol Use: Yes (whiskey and beer) Hx Substance Use: Yes - Immunization History Hx Tetanus Toxoid Vaccination: No Hx Influenza Vaccination: No Hx Pneumococcal Vaccination: No Review Of Systems Except As Marked, All Systems Reviewed And Found Negative. Constitutional: Negative for: Fever Cardiovascular: Negative for: Chest Pain Respiratory: Negative for: Cough, Shortness of Breath Gastrointestinal: Negative for: Nausea, Vomiting Musculoskeletal: Negative for: Back Pain Neurological: Positive for: Weakness, Dizziness. Negative for: Numbness Physical Exam - Physical Exam Appears: Non-toxic, No Acute Distress Skin: Warm, Dry, No Rash Head: Abrasion (mid-forehead), Laceration (1cm, mid forehead and avulsion.) Eye(s): bilateral: Scleral Icterus Nose: Normal Oral Mucosa: Moist Lips: Normal Appearing Neck: Normal ROM Chest: Symmetrical Cardiovascular: Rhythm Regular (Tachycardic), No Murmur Respiratory: Normal Breath Sounds, No Accessory Muscle Use Extremity: Normal ROM Neurological/Psych: Oriented x3, Normal Speech (No focal deficit.) ED Course And Treatment - Laboratory Results Result Diagrams: 11/14/16 15:20 11/14/16 15:20 ECG: Interpreted By Nd ECG Rhythm: Atrial Flutter ECG Interpretation: Abnormal Rate From EC Progress - Re-Evaluation Re-evaluation Note: 11/14/16 15:12 OLD RECS REVIEWED NO RECORD PACEMAKER PLACEMENT SINCE 201511/14/16 15:29 called to bedside by RN: janessa gamboa, hr 150. possible etoh withdrawal? nard. ativan given 11/14/16 16:06 Seizure resolved, patient sleeping. Persistent tachycardia, SVT 107 11/14/16 16:27 D/W DR SEGURA WILL EVAL FOR ICU PT REFUSING ABG PENDING CALLBACK HOSP 11/14/16 17:[address] SEGURA, PT PREV RESPONDED BETTER TO DIGOXIN AND BETA LUZMA. PERSIST TACHYCARDIA, SBP 95. PT TO ICU. 11/14/16 17:36 D/W DR Ambrose LEMA MED RN RADIOLOGY WILL ADMIT - Data Reviewed Data Reviewed: Lab, Diagnostic imaging, EKG, Old records - Critical Care Citical Care: Excluding Proc Time Critical Care Time: 120 minutes - Continuity of Care Discussed patient case with:: Patient Discussed pt. case with process consultant/specialty: Pulmonary/Crit. Care Medical Decision Making Medical Decision Making: Plan: * CT Head * EKG * EtOH Serum, BNP, BMP, CMP, Liver Profile, Trop I * CBC, PTT, PT * Chest X-Ray * Ativan, Cardizem, IVFs * Vapotherm * Urinalysis * Reassess and Disposition Notes and records reviewed. Patient had echocardiogram in 08/07, that showed cardiomegaly, reduced LVG and AR. Disposition Counseled Patient/Family Regarding: Studies Performed, Diagnosis - Disposition Disposition: HOSPITALIZED Disposition Time: 17:36 Condition: STABLE - POA Present On Arrival: None - Clinical Impression Clinical Impression: Atrial flutter with rapid ventricular response, Seizure, COPD exacerbation - Scribe Statement The provider has reviewed the documentation as recorded by the Scribe (Zachary Cardoso) All medical record entries made by the Scribe were at my direction and personally dictated by me. I have reviewed the chart and agree that the record accurately reflects my personal performance of the history, physical exam, medical decision making, and the department course for this patient. I have also personally directed, reviewed, and agree with the discharge instructions and disposition. Decision To Admit - Pt Status Changed To: Hospital Disposition Of: Inpatient - Admit Certification Admit to Inpatient:: After my assessment, the patient will require hospitalization for at least two midnights. This is because of the severity of symptoms shown, intensity of services needed, and/or the medical risk in this patient being treated as an outpatient. - InPatient: Physician Admission Certification: I certify that this patient requires 2 or more midnights of care for the following reason:: SEE NOTE - . Bed Request Type: ICU Admitting Physician: Jose Lema Patient Diagnosis: Atrial flutter with rapid ventricular response, Seizure, COPD exacerbation
[2016-11-14] MEDS ORDERED: Sodium Chloride 0.9% 1,000 ML IV ONE (15:13)
[2016-11-14 15:31] LABS: CHLORIDE 90 mmol/L (98-107)
[2016-11-14 15:32] LABS: POTASSIUM 3.8 mmol/L (3.6-5.2); SODIUM 127 mmol/L (132-148)
[2016-11-14 15:34] LABS: CARBON DIOXIDE 23 mmol/L (22-30); GFR AFRICAN-AMERICAN > 60
[2016-11-14 15:35] LABS: ALB/GLOB RATIO 0.9 (1.0-2.1); ALKALINE PHOSPHATASE 430 U/L (38-126); ALT/SGPT 507 U/L (21-72); AST/SGOT 192 U/L (17-59); BILIRUBIN,DIRECT 6.2 mg/dL (0.0-0.4); BLOOD UREA NITROGEN 16 mg/dL (9-20); GLUCOSE,RANDOM 110 mg/dL (75-110); MEAN CELL VOLUME 92.8 fL (80.0-94.0); MEAN CORPUSCULAR HGB CONC 33.4 g/dL (33.0-37.0); MEAN PLATELET VOLUME 9.1 fL (7.2-11.7); PLATELET COUNT 239 K/uL (130-400); RED CELL DISTRIBUTION WIDTH 17.2 % (11.5-14.5); TOTAL PROTEIN 6.3 g/dL (6.3-8.3); WHITE BLOOD COUNT 14.7 K/uL (4.8-10.8)
[2016-11-14 15:42] LABS: INR 1.2
[2016-11-14 16:41] LABS: VENOUS BLOOD GAS BASE EXCESS 0.7 mmol/L (0.0-2.0); VENOUS BLOOD GAS PCO2 35 mmHg (40-60); VENOUS BLOOD PH 7.45 (7.32-7.43)
--- NOTE | 2016-11-14 16:45 | CT ---
PROCEDURE: CT HEAD WITHOUT CONTRAST. HISTORY: SYNCOPE, FACIAL INJURY COMPARISON: 07/29/2006 TECHNIQUE: Axial computed tomography images were obtained through the head/brain without intravenous contrast. Radiation dose: Total exam DLP = 1818 mGy-cm. This CT exam was performed using one or more of the following dose reduction techniques: Automated exposure control, adjustment of the mA and/or kV according to patient size, and/or use of iterative reconstruction technique. FINDINGS: HEMORRHAGE: No intracranial hemorrhage. BRAIN: Prominent motion and streak artifact limits evaluation. Scattered focal lucencies in the subcortical and periventricular white matter suggestive for chronic microvascular ischemic change. Focal areas of low attenuation in the bilateral marr radiata as well as the right frontal subcortical white matter are suggestive for chronic areas of infarction. Left basal ganglia lacunar infarct. Prominent streak artifact at the level of the right temporal lobe and posterior fossa which markedly limits evaluation at these levels. Relative increased attenuation in the left basal ganglia is suggestive for calcification. Chronic lacunar infarct in the left cerebellum. VENTRICLES: Unremarkable. No hydrocephalus. CALVARIUM: Suggestion of possible nasal bone deformities. PARANASAL SINUSES: Unremarkable as visualized. No significant inflammatory changes. MASTOID AIR CELLS: Unremarkable as visualized. No inflammatory changes. OTHER FINDINGS: None. IMPRESSION: Prominent motion and streak artifact limits evaluation. Chronic microvascular ischemic change. Focal areas of low attenuation in the bilateral marr radiata as well as the right frontal subcortical white matter are suggestive for chronic areas of infarction. Left basal ganglia lacunar infarct. Prominent streak artifact at the level of the right temporal lobe and posterior fossa which markedly limits evaluation at these levels. Relative increased attenuation in the left basal ganglia is suggestive for calcification. Chronic lacunar infarct in the left cerebellum. Suggestion of possible nasal bone deformities. If focal neurologic deficit persists, consider MRI.
[2016-11-14 17:12] LABS: LYMPH # 2.1 K/uL (1.0-4.3); MONO # 1.5 K/uL (0.0-0.8)
[2016-11-14] MEDS ORDERED: Metoprolol 1 mg/ml Inj IVP ONE ×3 (17:18→17:30)
--- NOTE | 2016-11-14 17:24 | RAD ---
PROCEDURE: CHEST RADIOGRAPH, 1 VIEW HISTORY: Palpations COMPARISON: 11/07/2016 FINDINGS: LUNGS: Biapical pleural thickening with upper lobe granulomatous changes. Moderate venous congestion with diffuse increased interstitial lung markings. PLEURA: No pneumothorax or pleural fluid seen. CARDIOVASCULAR: Cardiomegaly. Left-sided pacemaker. Status post median sternotomy. OSSEOUS STRUCTURES: No significant abnormalities. VISUALIZED UPPER ABDOMEN: Normal. OTHER FINDINGS: None. IMPRESSION: Biapical pleural thickening with upper lobe granulomatous changes. Moderate venous congestion with diffuse increased interstitial lung markings. Cardiomegaly. Left-sided pacemaker. Status post median sternotomy.
[2016-11-14] MEDS ORDERED: Magnesium Sulfate 1 gm in D5W 1 GM/100 ML BAG IVPB ONE ×2 (17:33→17:48)
[2016-11-14] MEDS ORDERED: Thiamine 100 mg/ml Inj ONE (17:48)
[2016-11-14] MEDS ORDERED: Digoxin 500 mcg/2ml (0.5 mg/2ml) Inj IVP ONE ×2 (17:51→19:30)
[2016-11-14] MEDS: Thiamine 100 mg/ml Inj IV ONE ×2 (17:51→19:00)
[2016-11-14 18:13] LABS: RBC URINE 1 /hpf (0-3); URINE BACTERIA RARE (<OCC); URINE BILIRUBIN 1+ (NEGATIVE); URINE BLOOD NEGATIVE (NEGATIVE); URINE COLOR Amber (YELLOW); URINE GLUCOSE (UA) NORMAL (Normal); URINE KETONE NEGATIVE (NEGATIVE); URINE LEUKOCYTE ESTERASE NEG Leu/uL (Negative); URINE PROTEIN 2+ mg/dL (NEGATIVE); WBC URINE 4 /hpf (0-5)
--- NOTE | 2016-11-14 18:21 | CP.PCM.CON ---
History of Present Illness - History of Present Illness History of Present Illness: 56 M with h/o alcohol abuse, smoking, COPD, CHF ischemic cardiomyopathy EF 15-25 % s/p AICD, h/o aflutter, not on anticoagulation due to non compliance, CAD, s/ p CABG 8 yrs back, s/p PCI post cabg 5, s/p AICD last year, seizures, multiple lacunar strokes possible embolic, non compliant with medication, h/o alcoholic hepatitis, history of hepc ? treatment, h/o ivda in past, recent multiple admissions in [facility] with CHF, aflutter with RVR, seizures, multiple times leaving AMA. Patient presented with c/o palpitations since yesterday, h/o fall at home and hitting head with coffee table. Patient in ER was found to be in Aflutter with RVR rate of 150, didn't much respond with iv cardizem drip. Patient then had witnessed seizure in ER and received 2 mg ativan iv and had been lethargic, but arousable. Patient has visible bruise on the forehead, he is not in distress. In the past encounters in the hospital he has responded better with betablockers and dig for aflutter then calcium channel blockers. PMH As above PSH as above Social lives alone, tobacco history form prior chart still continues to smoke, alcohol, about 4-5 24 oz beers. Allergies NKDA Family history not available Review of Systems - Review of Systems All systems: reviewed and no additional remarkable complaints except (HPI) Past Patient History - Infectious Disease Hx of Infectious Diseases: None - Tetanus Immunizations Tetanus Immunization: Unknown - Past Medical History & Family History Past Medical History?: Yes - Past Social History Smoking Status: Light Smoker < 10 Cigarettes Daily Alcohol: > 2 Drinks/Day Home Situation {Lives}: Alone - CARDIAC Hx Atrial Fibrillation: Yes Hx Cardia Arrhythmia: Yes Hx Congestive Heart Failure: Yes Hx Hypercholesterolemia: Yes Hx Hypertension: Yes Hx Pacemaker: Yes - PULMONARY Hx Asthma: Yes Hx Chronic Obstructive Pulmonary Disease (COPD): Yes Hx Pneumonia: Yes - NEUROLOGICAL Hx Seizures: Yes - HEENT Hx HEENT Problems: No - RENAL Hx Chronic Kidney Disease: No - ENDOCRINE/METABOLIC Hx Endocrine Disorders: Yes Hx Diabetes Mellitus Type 2: Yes - HEMATOLOGICAL/ONCOLOGICAL Hx Blood Disorders: No - INTEGUMENTARY Hx Dermatological Problems: No - MUSCULOSKELETAL/RHEUMATOLOGICAL Hx Musculoskeletal Disorders: Yes Hx Falls: Yes - GASTROINTESTINAL Hx Gastrointestinal Disorders: No - GENITOURINARY/GYNECOLOGICAL Hx Genitourinary Disorders: No - PSYCHIATRIC Hx Depression: Yes Hx Substance Use: Yes - SURGICAL HISTORY Hx Coronary Artery Bypass Graft: Yes Hx Coronary Stent: Yes (4) - ANESTHESIA Hx Anesthesia: Yes Hx Anesthesia Reactions: No Hx Malignant Hyperthermia: No Meds Allergies/Adverse Reactions: Allergies Allergy/AdvReac Type Severity Reaction Status Date / Time No Known Allergies Allergy Verified 11/14/16 15:17 - Medications Medications: Current Medications Aspirin (Ecotrin) 81 mg PO DAILY PATIENCE Digoxin (Lanoxin) 0.5 mg IVP ONCE ONE Stop: 11/14/16 17:52 Digoxin (Lanoxin) 0.25 mg PO DAILY PATIENCE Folic Acid (Folic Acid) 1 mg PO DAILY PATIENCE Sodium Chloride (Sodium Chloride 0.9%) 1,000 mls @ 100 mls/hr IV .Q10H ONE Stop: 11/15/16 01:12 Last Admin: 11/14/16 15:32 Dose: 100 mls/hr Diltiazem HCl 125 mg/ Sodium (Chloride) 125 mls @ 5 mls/hr IV .Q24H PRN; Protocol; 5 MG/HR PRN Reason: PER TITRATION PROTOCOL Levetiracetam 500 mg/ Dextrose 105 mls @ 420 mls/hr IVPB Q12H PATIENCE Magnesium Sulfate/Dextrose (Magnesium Sulfate 1 Gm/100 Ml D5w) 1 gm in 100 mls @ 200 mls/hr IVPB ONCE ONE Stop: 11/14/16 18:02 Last Admin: 11/14/16 17:51 Dose: 200 mls/hr Lorazepam (Ativan) 1 mg IVP Q2H PRN PRN Reason: Anxiety Losartan Potassium (Cozaar) 25 mg PO DAILY PATIENCE Metoprolol Tartrate (Lopressor) 2.5 mg IVP ONCE ONE Stop: 11/14/16 17:24 Last Admin: 11/14/16 17:20 Dose: 2.5 mg Metoprolol Tartrate (Lopressor) 50 mg PO BID PATIENCE Ondansetron HCl (Zofran Inj) 4 mg IVP Q6 PRN PRN Reason: Nausea/Vomiting Pantoprazole Sodium (Protonix Ec Tab) 40 mg PO DAILY PATIENCE Thiamine HCl (Vitamin B1 Inj) 100 mg IV ONCE ONE Stop: 11/14/16 18:01 Last Admin: 11/14/16 17:51 Dose: 100 mg Thiamine HCl (Vitamin B1 Tab) 100 mg PO DAILY PATIENCE Physical Exam - Additional Findings Additional findings: * HEENT VIVEK * Neck rhythmic JVD up till the angle of the jaw * Chest b/l diffuse ronchi, no rales * CVS Regular tachycardia on tele appears aflutter * PA soft, nt, bs present * Ext 3+ edema b/l * [employer] lethargic arousable, moving all ext * Skin edematous in lower ext Results - Vital Signs Recent Vital Signs: Last Vital Signs Temp 97.3 F L 11/14/16 17:48 Pulse 115 H 11/14/16 17:48 Resp 18 11/14/16 17:48 BP 115/67 11/14/16 17:48 Pulse Ox 100 11/14/16 17:48 - Labs Result Diagrams: 11/14/16 15:20 11/14/16 15:20 Labs: Laboratory Results - last 24 hr 11/14/16 11/14/16 11/14/16 15:20 15:20 15:20 WBC 14.7 H RBC 3.99 L Hgb 12.4 Hct 37.0 MCV 92.8 MCH 31.0 MCHC 33.4 RDW 17.2 H Plt Count 239 MPV 9.1 Neut % (Auto) 76.0 H Lymph % (Auto) 14.0 L [place] % (Auto) 10.0 Neut # 11.1 H Lymph # 2.1 [place] # 1.5 H PT 13.9 H INR 1.2 APTT 27 pO2 VBG pH VBG pCO2 VBG HCO3 VBG Total CO2 VBG O2 Sat (Calc) VBG Base Excess VBG Potassium Glucose Lactate Sodium 127 L Potassium 3.8 Chloride 90 L Carbon Dioxide 23 Anion Gap 18 BUN 16 Creatinine 0.7 L Est GFR ( Amer) > 60 Est GFR (Non-Af Amer) > 60 Random Glucose 110 Calcium 8.0 L Magnesium Total Bilirubin 8.0 H Direct Bilirubin 6.2 H AST 192 H D ALT 507 H D Alkaline Phosphatase 430 H Troponin I 0.0290 NT-Pro-B Natriuret Pep 1830 H Total Protein 6.3 Albumin 3.0 L Globulin 3.3 Albumin/Globulin Ratio 0.9 L Venous Blood Potassium Digoxin Alcohol, Quantitative 11/14/16 11/14/16 11/14/16 15:30 16:35 17:20 WBC RBC Hgb Hct MCV MCH MCHC RDW Plt Count MPV Neut % (Auto) Lymph % (Auto) [place] % (Auto) Neut # Lymph # [place] # PT INR APTT pO2 75 H VBG pH 7.45 H VBG pCO2 35 L VBG HCO3 25.4 VBG Total CO2 25.4 VBG O2 Sat (Calc) 98.6 H VBG Base Excess 0.7 VBG Potassium 5.1 Glucose 106 Lactate 1.3 Sodium 126.0 L Potassium Chloride 100.0 Carbon Dioxide Anion Gap BUN Creatinine Est GFR ( Amer) Est GFR (Non-Af Amer) Random Glucose Calcium Magnesium 1.7 Total Bilirubin Direct Bilirubin AST ALT Alkaline Phosphatase Troponin I NT-Pro-B Natriuret Pep Total Protein Albumin Globulin Albumin/Globulin Ratio Venous Blood Potassium 5.1 Digoxin Alcohol, Quantitative 90 H 11/14/16 17:22 WBC RBC Hgb Hct MCV MCH MCHC RDW Plt Count MPV Neut % (Auto) Lymph % (Auto) [place] % (Auto) Neut # Lymph # [place] # PT INR APTT pO2 VBG pH VBG pCO2 VBG HCO3 VBG Total CO2 VBG O2 Sat (Calc) VBG Base Excess VBG Potassium Glucose Lactate Sodium Potassium Chloride Carbon Dioxide Anion Gap BUN Creatinine Est GFR ( Amer) Est GFR (Non-Af Amer) Random Glucose Calcium Magnesium Total Bilirubin Direct Bilirubin AST ALT Alkaline Phosphatase Troponin I NT-Pro-B Natriuret Pep Total Protein Albumin Globulin Albumin/Globulin Ratio Venous Blood Potassium Digoxin 0.5 L Alcohol, Quantitative Assessment & Plan - Assessment and Plan (Free Text) Assessment: 56 M with h/o alcohol abuse, smoking, COPD, CHF ischemic cardiomyopathy EF 15-25 % s/p AICD, h/o aflutter, not on anticoagulation due to non compliance, CAD, s/ p CABG 8 yrs back, s/p PCI post cabg 5, s/p AICD last year, seizures, multiple lacunar strokes possible embolic, non compliant with medication, h/o alcoholic hepatitis, history of hepc ? treatment, h/o ivda in past, recent multiple admissions in [facility] with CHF, aflutter with RVR, seizures, multiple times leaving AMA. Patient presented with c/o palpitations since yesterday, seizure episode in ER * Aflutter with RVR * Seizure episode due to non compliance * Hypervolemic hyponatremia from chf * Alcoholic/ hepc, ? congestive hepatitis, jaundice * COPD * Noncompliance, leaving ama in past * Risk of alcohol withdrawal. Plan: * Control HR with trial of BB and digoxin, calcium channel shola if needed * Correct and maintain electrolytes * IV keppra * Thiamine, FA, MVT * PRN iv ativan for anxiety, seizure * Try to diuress once hr is controlled and BP acceptable, which will improved hypervolemic hyponatremia * Counselled about chf, alcohol, tobacco abuse, being compliance with meds but patient was not interested will need reinforcement. * GI prophylaxis with protonix * DVT prophylaxis with heparin subq * See orders for detail.
[2016-11-14 19:25] VITALS: PULSE 152
--- NOTE | 2016-11-14 20:39 | CP.PCM.HP ---
<Dagmar Shelley - Last Filed: 11/14/16 21:43> History of Present Illness - History of Present Illness History of Present Illness: CC: " I'm about to pass out" 56 year old male with PMHx of CHF, CAD with CABG, stents X5, A.fib, HTN, Alcohol abuse, COPD, seizures, lacunar strokes, presents to the ED with complaints of feeling like he was going to pass out. Patient reports he "passed out" yesterday at home and hit his head on a table. His last drink was this morning. When asked if he did any drugs today, patient states he doesn't know. Patient admits he also felt palpitations for the past day. He has been admitted in the past and has left AMA many times as per chart review. Patient is poor historian and has poor compliance as per chart. Patient however admits to taking his medications every day. He admits to following with his PMD and heart doctort regularly. Patient denies chest pain. Admits to some SOB. He has good appetite and denies nausea, vomiting, diarrhea, constipation. PMHx: alcohol abuse, smoking, COPD, CHF ischemic cardiomyopathy EF 15-25% s/p AICD, h/o aflutter, not on anticoagulation due to non compliance, CAD, s/p CABG 8 yrs back, s/p PCI post cabg 5, s/p AICD last year, seizures, multiple lacunar strokes. Surgical Hx: CABG, spleen resection, AICD placement, inguinal hernia and has 2 screws in his ankle. Medications: does not remember them all. Family Hx: Father and Mother with "heart problems" Social Hx: admits to tobacco use, states he drinks 3 [employer] beers 3 times a week. PMD: Dr. Foster Present on Admission - Present on Admission Any Indicators Present on Admission: No Review of Systems - Constitutional Constitutional: Headache. absent: Chills, Fever - EENT Eyes: absent: Blurred Vision Ears: Dizziness - Cardiovascular Cardiovascular: absent: Chest Pain, Dyspnea - Respiratory Respiratory: Dyspnea, Dyspnea on Exertion. absent: Cough, Wheezing - Gastrointestinal Gastrointestinal: Abdominal Pain. absent: Constipation, Diarrhea, Nausea, Vomiting - Genitourinary Genitourinary: absent: Difficulty Urinating, Dysuria - Musculoskeletal Musculoskeletal: Back Pain. absent: Numbness, Tingling - Neurological Neurological: Dizziness, Syncope. absent: Numbness, Tingling, Tremor, Weakness - Psychiatric Psychiatric: absent: Anxiety, Depression - Endocrine Endocrine: absent: Fatigue, Palpitations Past Patient History - Infectious Disease Hx of Infectious Diseases: None - Tetanus Immunizations Tetanus Immunization: Unknown - Past Medical History & Family History Past Medical History?: Yes - Past Social History Smoking Status: Heavy Smoker > 10 Cigarettes Daily - CARDIAC Hx Atrial Fibrillation: Yes Hx Cardia Arrhythmia: Yes Hx Congestive Heart Failure: Yes Hx Hypercholesterolemia: Yes Hx Hypertension: Yes Hx Pacemaker: Yes - PULMONARY Hx Asthma: Yes Hx Chronic Obstructive Pulmonary Disease (COPD): Yes Hx Pneumonia: Yes - NEUROLOGICAL Hx Seizures: Yes - HEENT Hx HEENT Problems: No - RENAL Hx Chronic Kidney Disease: No - ENDOCRINE/METABOLIC Hx Endocrine Disorders: Yes Hx Diabetes Mellitus Type 2: Yes - HEMATOLOGICAL/ONCOLOGICAL Hx Blood Disorders: No - INTEGUMENTARY Hx Dermatological Problems: No - MUSCULOSKELETAL/RHEUMATOLOGICAL Hx Musculoskeletal Disorders: Yes Hx Falls: Yes - GASTROINTESTINAL Hx Gastrointestinal Disorders: No - GENITOURINARY/GYNECOLOGICAL Hx Genitourinary Disorders: No - PSYCHIATRIC Hx Depression: Yes Hx Substance Use: Yes - SURGICAL HISTORY Hx Coronary Artery Bypass Graft: Yes Hx Coronary Stent: Yes (4) - ANESTHESIA Hx Anesthesia: Yes Hx Anesthesia Reactions: No Hx Malignant Hyperthermia: No Has any member of the family had a problem w/ anesthesia?: No Meds Allergies/Adverse Reactions: Allergies Allergy/AdvReac Type Severity Reaction Status Date / Time No Known Allergies Allergy Verified 11/14/16 15:17 Physical Exam - Constitutional Appears: No Acute Distress, Unkempt - Head Exam Head Exam: absent: ATRAUMATIC, NORMAL INSPECTION, NORMOCEPHALIC Additional comments: Abrasion (mid-forehead), Laceration (1cm, mid forehead) - Eye Exam Eye Exam: EOMI, Normal appearance - ENT Exam ENT Exam: Mucous Membranes Moist - Neck Exam Neck exam: Positive for: Full Rom, Normal Inspection - Respiratory Exam Respiratory Exam: Clear to Auscultation Bilateral, NORMAL BREATHING PATTERN - Cardiovascular Exam Cardiovascular Exam: Tachycardia (150), +S1, +S2 - GI/Abdominal Exam GI & Abdominal Exam: Distended, Normal Bowel Sounds, Soft. absent: Firm, Guarding, Tenderness - Extremities Exam Extremities exam: Positive for: normal inspection, pedal edema. Negative for: calf tenderness - Back Exam Back exam: NORMAL INSPECTION - Neurological Exam Neurological exam: Alert, CN II-XII Intact, Oriented x3 - Psychiatric Exam Psychiatric exam: Normal Affect, Normal Mood - Skin Skin Exam: Dry, Normal Color, Warm Results - Vital Signs Recent Vital Signs: Last Vital Signs Temp 97.9 F 11/14/16 20:00 Pulse 102 H 11/14/16 20:10 Resp 17 11/14/16 20:10 BP 107/78 11/14/16 19:41 Pulse Ox 100 11/14/16 20:10 - Labs Result Diagrams: 11/14/16 15:20 11/14/16 15:20 Labs: Laboratory Results - last 24 hr 11/14/16 11/14/16 11/14/16 15:20 15:20 15:20 WBC 14.7 H RBC 3.99 L Hgb 12.4 Hct 37.0 MCV 92.8 MCH 31.0 MCHC 33.4 RDW 17.2 H Plt Count 239 MPV 9.1 Neut % (Auto) 76.0 H Lymph % (Auto) 14.0 L Forrest % (Auto) 10.0 Neut # 11.1 H Lymph # 2.1 Forrest # 1.5 H PT 13.9 H INR 1.2 APTT 27 pO2 VBG pH VBG pCO2 VBG HCO3 VBG Total CO2 VBG O2 Sat (Calc) VBG Base Excess VBG Potassium Glucose Lactate Sodium 127 L Potassium 3.8 Chloride 90 L Carbon Dioxide 23 Anion Gap 18 BUN 16 Creatinine 0.7 L Est GFR ( Amer) > 60 Est GFR (Non-Af Amer) > 60 Random Glucose 110 Calcium 8.0 L Magnesium Total Bilirubin 8.0 H Direct Bilirubin 6.2 H AST 192 H D ALT 507 H D Alkaline Phosphatase 430 H Troponin I 0.0290 NT-Pro-B Natriuret Pep 1830 H Total Protein 6.3 Albumin 3.0 L Globulin 3.3 Albumin/Globulin Ratio 0.9 L Venous Blood Potassium Urine Color Urine Clarity Urine pH Ur Specific [place] Urine Protein Urine Glucose (UA) Urine Ketones Urine Blood Urine Nitrate Urine Bilirubin Urine Urobilinogen Ur Leukocyte Esterase Urine WBC (Auto) Urine RBC (Auto) Ur Squamous Epith Cells Urine Bacteria Digoxin Alcohol, Quantitative 11/14/16 11/14/16 11/14/16 15:30 16:35 17:20 WBC RBC Hgb Hct MCV MCH MCHC RDW Plt Count MPV Neut % (Auto) Lymph % (Auto) Forrest % (Auto) Neut # Lymph # Forrest # PT INR APTT pO2 75 H VBG pH 7.45 H VBG pCO2 35 L VBG HCO3 25.4 VBG Total CO2 25.4 VBG O2 Sat (Calc) 98.6 H VBG Base Excess 0.7 VBG Potassium 5.1 Glucose 106 Lactate 1.3 Sodium 126.0 L Potassium Chloride 100.0 Carbon Dioxide Anion Gap BUN Creatinine Est GFR ( Amer) Est GFR (Non-Af Amer) Random Glucose Calcium Magnesium 1.7 Total Bilirubin Direct Bilirubin AST ALT Alkaline Phosphatase Troponin I NT-Pro-B Natriuret Pep Total Protein Albumin Globulin Albumin/Globulin Ratio Venous Blood Potassium 5.1 Urine Color Urine Clarity Urine pH Ur Specific [place] Urine Protein Urine Glucose (UA) Urine Ketones Urine Blood Urine Nitrate Urine Bilirubin Urine Urobilinogen Ur Leukocyte Esterase Urine WBC (Auto) Urine RBC (Auto) Ur Squamous Epith Cells Urine Bacteria Digoxin Alcohol, Quantitative 90 H 11/14/16 11/14/16 17:22 17:51 WBC RBC Hgb Hct MCV MCH MCHC RDW Plt Count MPV Neut % (Auto) Lymph % (Auto) Forrest % (Auto) Neut # Lymph # Forrest # PT INR APTT pO2 VBG pH VBG pCO2 VBG HCO3 VBG Total CO2 VBG O2 Sat (Calc) VBG Base Excess VBG Potassium Glucose Lactate Sodium Potassium Chloride Carbon Dioxide Anion Gap BUN Creatinine Est GFR ( Amer) Est GFR (Non-Af Amer) Random Glucose Calcium Magnesium Total Bilirubin Direct Bilirubin AST ALT Alkaline Phosphatase Troponin I NT-Pro-B Natriuret Pep Total Protein Albumin Globulin Albumin/Globulin Ratio Venous Blood Potassium Urine Color Yomaira Urine Clarity Clear Urine pH 6.0 Ur Specific [place] 1.016 Urine Protein 2+ H Urine Glucose (UA) Normal Urine Ketones Negative Urine Blood Negative Urine Nitrate Negative Urine Bilirubin 1+ H Urine Urobilinogen 4.0 Ur Leukocyte Esterase Neg Urine WBC (Auto) 4 Urine RBC (Auto) 1 Ur Squamous Epith Cells < 1 Urine Bacteria Rare Digoxin 0.5 L Alcohol, Quantitative Assessment & Plan (1) Atrial flutter with rapid ventricular response Assessment and Plan: Flutter with RVR rate of 150 Did not respond to cardizem IV drip. As per Dr. Guerra, will try to control rate with betablockers and digoxin, then calcium channel blockers if needed. Will monitor in ICU. Status: Acute (2) Status post fall Assessment and Plan: Possibly secondary to seizure? Aflutter? Head CT done in the ED- negative for bleed. Positive for chronic lacunar infarcts. Fall precautions Status: Acute (3) Seizure Assessment and Plan: Patient then had witnessed seizure in ER and received 2 mg ativan Seizures possibly secondary to lacunar infarcts * IV keppra * Ativan IV PRN for anxiety and seizure Consider Neuro consult once more stable. Status: Acute (4) CAD (coronary artery disease) Assessment and Plan: s/p PCI post cabg 5, s/p AICD last year Continue: * Aspirin 81 mg PO daily * Lopressor 50 mg PO BID Status: Acute (5) Chronic congestive heart failure Assessment and Plan: CHF ischemic cardiomyopathy EF 15-25% s/p AICD * Losartan 25 mg Po daily * Lopressor 50 mg Po BID * Digoxin 0.25 mg Po daily As per attending, will try to diurese once HR is controlled and BP acceptable Status: Acute (6) COPD exacerbation Assessment and Plan: Not exacerbated Will add bronchodilators as needed Status: Acute (7) Alcohol abuse Assessment and Plan: Patient on seizure precautions * Ativan 1 mg IVP Q2H PRN seizure * Thiamine 100 mg PO daily * Folic Acid 1 mg Po daily Status: Acute (8) HTN (hypertension) Assessment and Plan: BP is on the lower side * Losartan 25 mg Po daily * Lopressor 50 mg Po BID * Digoxin 0.25 mg Po daily As per attending, will try to diurese once HR is controlled and BP acceptable Status: Acute (9) Prophylactic measure Assessment and Plan: Heparin 5000 SC Q8H Protonix 40 mg PO daily Status: Acute <Perico Guerra P - Last Filed: 11/15/16 04:56> Results - Vital Signs Recent Vital Signs: Last Vital Signs Temp 97.9 F 11/15/16 04:00 Pulse 121 H 11/15/16 04:01 Resp 15 11/15/16 04:01 BP 119/76 11/15/16 04:01 Pulse Ox 99 11/15/16 01:00 - Labs Result Diagrams: 11/14/16 15:20 11/14/16 15:20 Labs: Laboratory Results - last 24 hr 11/14/16 11/14/16 11/14/16 15:20 15:20 15:20 WBC 14.7 H RBC 3.99 L Hgb 12.4 Hct 37.0 MCV 92.8 MCH 31.0 MCHC 33.4 RDW 17.2 H Plt Count 239 MPV 9.1 Neut % (Auto) 76.0 H Lymph % (Auto) 14.0 L Forrest % (Auto) 10.0 Neut # 11.1 H Lymph # 2.1 Forrest # 1.5 H PT 13.9 H INR 1.2 APTT 27 pO2 VBG pH VBG pCO2 VBG HCO3 VBG Total CO2 VBG O2 Sat (Calc) VBG Base Excess VBG Potassium Glucose Lactate Sodium 127 L Potassium 3.8 Chloride 90 L Carbon Dioxide 23 Anion Gap 18 BUN 16 Creatinine 0.7 L Est GFR ( Amer) > 60 Est GFR (Non-Af Amer) > 60 POC Glucose (mg/dL) Random Glucose 110 Calcium 8.0 L Magnesium Total Bilirubin 8.0 H Direct Bilirubin 6.2 H AST 192 H D ALT 507 H D Alkaline Phosphatase 430 H Troponin I 0.0290 NT-Pro-B Natriuret Pep 1830 H Total Protein 6.3 Albumin 3.0 L Globulin 3.3 Albumin/Globulin Ratio 0.9 L Venous Blood Potassium Urine Color Urine Clarity Urine pH Ur Specific [place] Urine Protein Urine Glucose (UA) Urine Ketones Urine Blood Urine Nitrate Urine Bilirubin Urine Urobilinogen Ur Leukocyte Esterase Urine WBC (Auto) Urine RBC (Auto) Ur Squamous Epith Cells Urine Bacteria Digoxin Alcohol, Quantitative 11/14/16 11/14/16 11/14/16 15:30 16:35 17:20 WBC RBC Hgb Hct MCV MCH MCHC RDW Plt Count MPV Neut % (Auto) Lymph % (Auto) Forrest % (Auto) Neut # Lymph # Forrest # PT INR APTT pO2 75 H VBG pH 7.45 H VBG pCO2 35 L VBG HCO3 25.4 VBG Total CO2 25.4 VBG O2 Sat (Calc) 98.6 H VBG Base Excess 0.7 VBG Potassium 5.1 Glucose 106 Lactate 1.3 Sodium 126.0 L Potassium Chloride 100.0 Carbon Dioxide Anion Gap BUN Creatinine Est GFR ( Amer) Est GFR (Non-Af Amer) POC Glucose (mg/dL) Random Glucose Calcium Magnesium 1.7 Total Bilirubin Direct Bilirubin AST ALT Alkaline Phosphatase Troponin I NT-Pro-B Natriuret Pep Total Protein Albumin Globulin Albumin/Globulin Ratio Venous Blood Potassium 5.1 Urine Color Urine Clarity Urine pH Ur Specific [place] Urine Protein Urine Glucose (UA) Urine Ketones Urine Blood Urine Nitrate Urine Bilirubin Urine Urobilinogen Ur Leukocyte Esterase Urine WBC (Auto) Urine RBC (Auto) Ur Squamous Epith Cells Urine Bacteria Digoxin Alcohol, Quantitative 90 H 11/14/16 11/14/16 11/14/16 17:22 17:51 21:49 WBC RBC Hgb Hct MCV MCH MCHC RDW Plt Count MPV Neut % (Auto) Lymph % (Auto) Forrest % (Auto) Neut # Lymph # Forrest # PT INR APTT pO2 VBG pH VBG pCO2 VBG HCO3 VBG Total CO2 VBG O2 Sat (Calc) VBG Base Excess VBG Potassium Glucose Lactate Sodium Potassium Chloride Carbon Dioxide Anion Gap BUN Creatinine Est GFR ( Amer) Est GFR (Non-Af Amer) POC Glucose (mg/dL) 132 H Random Glucose Calcium Magnesium Total Bilirubin Direct Bilirubin AST ALT Alkaline Phosphatase Troponin I NT-Pro-B Natriuret Pep Total Protein Albumin Globulin Albumin/Globulin Ratio Venous Blood Potassium Urine Color Yomaira Urine Clarity Clear Urine pH 6.0 Ur Specific [place] 1.016 Urine Protein 2+ H Urine Glucose (UA) Normal Urine Ketones Negative Urine Blood Negative Urine Nitrate Negative Urine Bilirubin 1+ H Urine Urobilinogen 4.0 Ur Leukocyte Esterase Neg Urine WBC (Auto) 4 Urine RBC (Auto) 1 Ur Squamous Epith Cells < 1 Urine Bacteria Rare Digoxin 0.5 L Alcohol, Quantitative 11/15/16 00:08 WBC RBC Hgb Hct MCV MCH MCHC RDW Plt Count MPV Neut % (Auto) Lymph % (Auto) Forrest % (Auto) Neut # Lymph # Forrest # PT INR APTT pO2 VBG pH VBG pCO2 VBG HCO3 VBG Total CO2 VBG O2 Sat (Calc) VBG Base Excess VBG Potassium Glucose Lactate Sodium Potassium Chloride Carbon Dioxide Anion Gap BUN Creatinine Est GFR ( Amer) Est GFR (Non-Af Amer) POC Glucose (mg/dL) 137 H Random Glucose Calcium Magnesium Total Bilirubin Direct Bilirubin AST ALT Alkaline Phosphatase Troponin I NT-Pro-B Natriuret Pep Total Protein Albumin Globulin Albumin/Globulin Ratio Venous Blood Potassium Urine Color Urine Clarity Urine pH Ur Specific [place] Urine Protein Urine Glucose (UA) Urine Ketones Urine Blood Urine Nitrate Urine Bilirubin Urine Urobilinogen Ur Leukocyte Esterase Urine WBC (Auto) Urine RBC (Auto) Ur Squamous Epith Cells Urine Bacteria Digoxin Alcohol, Quantitative Attending/Attestation - Attestation I have personally seen and examined this patient.: Yes I have fully participated in the care of the patient.: Yes I have reviewed all pertinent clinical information: Yes Notes (Text): Assessment: 56 M with h/o alcohol abuse, smoking, COPD, CHF ischemic cardiomyopathy EF 15-25 % s/p AICD, h/o aflutter, not on anticoagulation due to non compliance, CAD, s/ p CABG 8 yrs back, s/p PCI post cabg 5, s/p AICD last year, seizures, multiple lacunar strokes possible embolic, non compliant with medication, h/o alcoholic hepatitis, history of hepc ? treatment, h/o ivda in past, recent multiple admissions in [facility] with CHF, aflutter with RVR, seizures, multiple times leaving AMA. Patient presented with c/o palpitations since yesterday, seizure episode in ER Aflutter with RVR Seizure episode due to non compliance Hypervolemic hyponatremia from chf Alcoholic/ hepc, ? congestive hepatitis, jaundice COPD Noncompliance, leaving ama in past Risk of alcohol withdrawal. Plan: Control HR with trial of BB and digoxin, calcium channel shola if needed Correct and maintain electrolytes IV keppra Thiamine, FA, MVT PRN iv ativan for anxiety, seizure Try to diuress once hr is controlled and BP acceptable, which will improved hypervolemic hyponatremia Counselled about chf, alcohol, tobacco abuse, being compliance with meds but patient was not interested will need reinforcement. GI prophylaxis with protonix DVT prophylaxis with heparin subq See orders for detail.
[2016-11-15] MEDS: (Novolin R) Insulin Human Regular 100 units/ml vial SC SCH ×4 (00:25→17:25)
[2016-11-15 01:56] VITALS: O2SAT 99
[2016-11-15] MEDS ORDERED: Budesonide 0.5 mg/2 ml Inhal Susp UD INH SCH ×2 (08:00→08:15)
[2016-11-15] MEDS ORDERED: Pantoprazole 40 mg EC Tab PO SCH (10:00)
[2016-11-15 12:27] VITALS: BP 95/66; PULSE 103; RESP 16
[2016-11-15] MEDS ORDERED: Albuterol-Ipratrop 3 mg / 0.5 (3 ml) UD INH SCH (14:00)
--- NOTE | 2016-11-15 17:54 | CP.CCUPN ---
CCU Subjective - Physician Review Subjective (Free Text): HPI: Patient seen and examined at bedside. No acute events overnight. He complains of dyspnea and chest discomfort while waiting for his pulmonary treatment. He denies headaches, fever, chills, nausea, vomiting, abdominal pain , diarrhea, constipation, urinary symptoms, weakness or tingling in his extremities. His medical records and labs were reviewed and discussed with the house staff. 11/15/16 17:52 CCU Objective - Vital Signs / Intake & Output Intake and Output (Last 8hrs): Intake & Output 11/15/16 11/15/16 11/15/16 06:59 14:59 22:59 Intake Total 200 650 250 Output Total 550 2295 250 Balance -350 -1645 0 Weight 168 lb Intake: Intake, IV Amount 0 Left Hand 0 Right Antecubital 0 Oral 200 650 250 Output: Urine 550 2295 250 Urine, Voided 550 2295 250 Other: # Voids Urine, Voided 0 # Bowel Movements 1 1 - Physical Exam Head: Positive for: Atraumatic, Normocephalic Pupils: Positive for: PERRL Extroacular Muscles: Positive for: EOMI Conjunctiva: Positive for: Normal Mouth: Positive for: Moist Mucous Membranes Neck: Negative for: JVD, Lymphadenopathy, Bruit Respiratory/Chest: Positive for: Wheezes, Rhonchi. Negative for: Respiratory Distress, Accessory Muscle Use, Rales Cardiovascular: Positive for: Regular Rate and Rhythm, Normal S1, S2. Negative for: Murmurs Abdomen: Positive for: Normal Bowel Sounds. Negative for: Tenderness, Distention Lower Extremity: Positive for: Normal Inspection. Negative for: Edema Psychiatric: Positive for: Alert, Oriented x 3, Agitated - Medications Active Medications: Active Medications Generic Name Dose Route Start Last Admin Trade Name Freq PRN Reason Stop Dose Admin Albuterol/Ipratropium 3 ml 11/15/16 14:00 11/15/16 13:08 Duoneb 3 Mg/0.5 Mg (3 Ml) Ud INH 3 ml RQ6 PATIENCE Administration Aspirin 81 mg 11/15/16 10:00 11/15/16 10:17 Ecotrin PO 81 mg DAILY PATIENCE Administration Budesonide 0.5 mg 11/15/16 08:15 11/15/16 08:17 Pulmicort Respules INH 0.5 mg RQ12 PATIENCE Administration Digoxin 0.25 mg 11/15/16 18:00 Lanoxin PO DAILY@1800 PATIENCE Folic Acid 1 mg 11/15/16 10:00 11/15/16 10:17 Folic Acid PO 1 mg DAILY PATIENCE Administration Heparin Sodium (Porcine) 5,000 units 11/14/16 22:00 11/15/16 15:29 Heparin SC Not Given Q8 PATIENCE Levetiracetam 500 mg/ Dextrose 105 mls @ 420 mls/hr 11/14/16 18:00 11/15/16 06:15 IVPB 420 mls/hr Q12H PATIENCE Administration Insulin Human Regular 0 unit 11/15/16 00:00 11/15/16 11:45 Novolin R SC Not Given Q6 [facility] Protocol Lorazepam 1 mg 11/14/16 17:26 11/15/16 09:40 Ativan IVP 1 mg Q2H PRN Administration Anxiety Losartan Potassium 25 mg 11/15/16 10:00 11/15/16 10:17 Cozaar PO 25 mg DAILY PATIENCE Administration Metoprolol Tartrate 50 mg 11/14/16 18:00 11/15/16 10:26 Lopressor PO 50 mg BID PATIENCE Administration Ondansetron HCl 4 mg 11/14/16 17:26 Zofran Inj IVP Q6 PRN Nausea/Vomiting Pantoprazole Sodium 40 mg 11/15/16 10:00 11/15/16 10:17 Protonix Ec Tab PO 40 mg DAILY PATIENCE Administration Thiamine HCl 100 mg 11/15/16 10:00 11/15/16 10:17 Vitamin B1 Tab PO 100 mg DAILY PATIENCE Administration - Patient Studies Lab Studies: Lab Studies 11/15/16 11/15/16 11/15/16 Range/Units 11:39 06:01 00:08 POC Glucose (mg/dL) 149 H 93 137 H (65-110) mg/dL Urine Color (YELLOW) Urine Clarity (Clear) Urine pH (5.0-8.0) Ur Specific [place] (1.003-1.030) Urine Protein (NEGATIVE) mg/dL Urine Glucose (UA) (Normal) mg/dL Urine Ketones (NEGATIVE) mg/dL Urine Blood (NEGATIVE) Urine Nitrate (NEGATIVE) Urine Bilirubin (NEGATIVE) Urine Urobilinogen (0.2-1.0) mg/dL Ur Leukocyte Esterase (Negative) Jesu/uL Urine WBC (Auto) (0-5) /hpf Urine RBC (Auto) (0-3) /hpf Ur Squamous Epith Cells (0-5) /hpf Urine Bacteria (<OCC) 11/14/16 11/14/16 Range/Units 21:49 17:51 POC Glucose (mg/dL) 132 H (65-110) mg/dL Urine Color Yomaira (YELLOW) Urine Clarity Clear (Clear) Urine pH 6.0 (5.0-8.0) Ur Specific [place] 1.016 (1.003-1.030) Urine Protein 2+ H (NEGATIVE) mg/dL Urine Glucose (UA) Normal (Normal) mg/dL Urine Ketones Negative (NEGATIVE) mg/dL Urine Blood Negative (NEGATIVE) Urine Nitrate Negative (NEGATIVE) Urine Bilirubin 1+ H (NEGATIVE) Urine Urobilinogen 4.0 (0.2-1.0) mg/dL Ur Leukocyte Esterase Neg (Negative) Jesu/uL Urine WBC (Auto) 4 (0-5) /hpf Urine RBC (Auto) 1 (0-3) /hpf Ur Squamous Epith Cells < 1 (0-5) /hpf Urine Bacteria Rare (<OCC) Laboratory Results - last 24 hr 11/14/16 11/14/16 11/15/16 17:51 21:49 00:08 POC Glucose (mg/dL) 132 H 137 H Urine Color Yomaira Urine Clarity Clear Urine pH 6.0 Ur Specific [place] 1.016 Urine Protein 2+ H Urine Glucose (UA) Normal Urine Ketones Negative Urine Blood Negative Urine Nitrate Negative Urine Bilirubin 1+ H Urine Urobilinogen 4.0 Ur Leukocyte Esterase Neg Urine WBC (Auto) 4 Urine RBC (Auto) 1 Ur Squamous Epith Cells < 1 Urine Bacteria Rare 11/15/16 11/15/16 06:01 11:39 POC Glucose (mg/dL) 93 149 H Urine Color Urine Clarity Urine pH Ur Specific [place] Urine Protein Urine Glucose (UA) Urine Ketones Urine Blood Urine Nitrate Urine Bilirubin Urine Urobilinogen Ur Leukocyte Esterase Urine WBC (Auto) Urine RBC (Auto) Ur Squamous Epith Cells Urine Bacteria Fingerstick Blood Sugar Results: 149 Review of Systems - Constitutional Constitutional: absent: Fever, Chills, Weakness - EENT Ears: absent: Dizziness - Cardiovascular Cardiovascular: Chest Pain, Dyspnea, Dyspnea on Exertion. absent: Diaphoresis, Leg Edema, Lightheadedness, Palpitations, Pedal Edema - Respiratory Respiratory: Cough, Dyspnea, Wheezing, Chest Congestion. absent: Pain with Coughing - Gastrointestinal Gastrointestinal: absent: Abdominal Pain, Nausea, Vomiting - Neurological Neurological: absent: Dizziness, Headaches, Syncope, Tingling, Weakness - Psychiatric Psychiatric: Anxiety, Irritability. absent: Change in Appetite - Endocrine Endocrine: absent: Fatigue, Palpitations Critical Care Progress Note - Nutrition Nutrition: Nutrition Category Date Time Status Heart Healthy Diet [DIET] Diets 11/14/16 Breakfast Active Assessment/Plan - Assessment and Plan (Free Text) Assessment: 56 year old male with PMHx of CHF, CAD with CABG, stents x5, A. Fib, HTN, Alcohol abuse, COPD, seizures, lacunar strokes presenting for syncopal episode and hit his head on the table. Today 11/15/16: Patient complaints of SOB, started on BiPAP today and Duoneb was added. After receiving BiPAP and Duoneb treatment today, patient signed out AMA. Plan: Pulm: COPD - 11/14 CXR: biapical pleural thickening with upper lobe granulomatous changes. Moderate venous congestion with diffuse increased interstitial lung markings. Cardiomegaly. Left pacemaker. - BiPAP - Pulmicort 0.5 mg INH RQ12 - Duoneb 3ml INH RQ6 Cardio: h/o CHF, CAD with CABG, stents x5, A. Fib, HTN - s/p CABG, s/p stents x5, s/p AICD last year - 10/19 Echo: EF 15%, severely reduced overall LV function with hypokinetic septum and akinetic inferior wall. Cardiomegaly. Normal functioning bio- prosthetic mitral valve. Moderate pulmonary HTN. Moderate eccentric aortic regurgitation. - 11/14 EKG: a flutter with RVR rate 150 bpm - ASA 81 mg PO daily - Rate control with Digoxin 0.25 mg PO daily, Lopressor 50 mg PO BID - Losartan 25 mg PO daily Neuro: Dizziness, syncopal episode, h/o seizures - 11/[address]: negative for hemorrhage. Chronic lacunar infarcts. - Consider Neuro consult when more stable. - Keppra 500 mg IV Q12 - Ativan 1 mg PO Q2 PRN Psych: Alcohol use disorder - Ativan 1 mg IV Q2 prn - Thiamine 100 mg PO daily - Folic Acid 1 mg PO daily Endo: transient hyperglycemia secondary to corticosteroid use - ISS, low dose protocol GI: no acute issues Prophylaxis: - Fall precautions - Heparin 5, 0000 U SC Q8 - Protonix 40 mg PO daily - Zofran 4 mg IV Q6 prn
[2016-11-15] MEDS ORDERED: Digoxin 250 mcg (0.25 mg) Tab PO SCH (18:00)
[2016-11-15 19:32] VITALS: TEMP 97.4
== END 2016-11-15 17:35 | disposition home or self-care (01) | DRG 138 ==
LOC: C.ER 14:58 → C.9I 17:37
PROVIDERS: ADMIT Internal Medicine; ATTEND Internal Medicine Pulmonary Disease
DX: I48.92 Unspecified atrial flutter (principal); I11.0 Hypertensive heart disease with heart failure; I50.9 Heart failure, unspecified; K70.10 Alcoholic hepatitis without ascites; E87.1 Hypo-osmolality and hyponatremia; J44.1 Chronic obstructive pulmonary disease with (acute) exacerbation; I48.91 Unspecified atrial fibrillation; I25.10 Atherosclerotic heart disease of native coronary artery without angina pectoris; I25.5 Ischemic cardiomyopathy; E11.9 Type 2 diabetes mellitus without complications; F41.9 Anxiety disorder, unspecified; F10.10 Alcohol abuse, uncomplicated; G40.909 Epilepsy, unspecified, not intractable, without status epilepticus; S00.83XA Contusion of other part of head, initial encounter; W22.09XA Striking against other stationary object, initial encounter; E78.00 Pure hypercholesterolemia, unspecified; Z91.14 Patient's other noncompliance with medication regimen; Z95.810 Presence of automatic (implantable) cardiac defibrillator; Z95.1 Presence of aortocoronary bypass graft; Z72.0 Tobacco use; Z91.19 Patient's noncompliance with other medical treatment and regimen; Z95.5 Presence of coronary angioplasty implant and graft; Z87.01 Personal history of pneumonia (recurrent); Z86.73 Personal history of transient ischemic attack (TIA), and cerebral infarction without residual deficits; Z79.82 Long term (current) use of aspirin

== ENCOUNTER 2016-12-19 00:40 | Observation (INO) | payer OTHER ==
[2016-12-19 00:40] VITALS: PULSE 152; BMI 28.3
--- NOTE | 2016-12-19 01:11 | C.PDOC ---
History Of Present Illness 56 y/o M c PMHx CAD w CABG 15 years ago, asplenia, CHF w/ defibrillator, COPD not on home O2, seizure disorder, HTN, HLD, polysubstance abuse (EtOH, crack, and opiods), DM on metformin, who is chronically medically non compliant p/w shortness of breath and chest pain. As per EMS, patient called from home due to L sided chest pain with shortness of breath. Wheezing was found bilaterally and he was started on duonebs, which were discontinued due to PVCs on monitor. While patient was being placed in stretcher in ED, he became unresponsive, jaw clenched, rhythmic movements of face and shoulders. I was called to bedside, ordered Ativan administration, after which patient became drowsy. Full HPI/ROS unobtainable. Time Seen by Provider: 12/19/16 00:55 Chief Complaint (Nursing): Chest Pain Past Medical History Vital Signs: Last Vital Signs Temp 98.3 F 12/19/16 05:44 Pulse 116 H 12/19/16 05:44 Resp 16 12/19/16 05:44 BP 111/69 12/19/16 05:44 Pulse Ox 98 12/19/16 05:44 - Medical History PMH: Asthma, Atrial Fibrillation, Back Problems, Cardia Arrhythmia, CHF, COPD, Depression, HTN, Hypercholesterolemia, Pneumonia, Seizures Denies: Chronic Kidney Disease Surgical History: CABG, Coronary Stent (4), Pacemaker - [facility] Procedures ASSISTANCE WITH RESPIRATORY VENTILATION, 24-96 HRS, CPAP (11/06/16) CORONAR ARTERIOGR-2 CATH (06/24/14) CORONARY ARTERY STENT INSERTION [id number] (06/24/14) INFLUENZA VACCINATION (04/25/14) INSERTION OF ONE VASCULAR STENT (06/24/14) INTRODUCE OF OTH THERAP SUBST INTO RESP TRACT, VIA OPENING (06/19/15) INTRODUCTION OF SERUM/TOX/VACCINE INTO MUSCLE, PERC APPROACH (01/05/16) LEFT HEART CARDIAC CATH (06/24/14) NEBULIZER THERAPY (07/12/14) PERCUTANEOUS TRANSLUMINAL CORONARY ANGIOPLASTY [PTCA] (06/24/14) PROCEDURE ON SINGLE VESSEL (06/24/14) VACCINATION NEC (04/25/14) Family History: States: Unknown Family Hx, Diabetes - Social History Hx Tobacco Use: Yes Hx Alcohol Use: Yes Hx Substance Use: Yes - Immunization History Hx Tetanus Toxoid Vaccination: No Hx Influenza Vaccination: No Hx Pneumococcal Vaccination: No Review Of Systems Review Of Systems: ROS cannot be obtained secondary to pt's inabilty to answer questions. Physical Exam - Physical Exam Additional Physical Exam Comments: Constitutional: Having seizure upon my arrival as per HPI. Head: Normocephalic. Atraumatic. Eyes: PERRL. ENT: Moist mucous membranes. Neck: Supple. Cardiovascular: Mild tachycardia. Radial pulse 2+ bilaterally. Chest: L sided defibrillator Respiratory: Wheezing bilaterally. GI: Soft. Back: No stepoffs. Musculoskeletal: No tenderness or swelling of extremities. Skin: No rash. Neurologic: Drowsy after Ativan administered. ED Course And Treatment - Laboratory Results Result Diagrams: 12/19/16 01:30 12/19/16 01:30 O2 Sat by Pulse Oximetry: 100 Medical Decision Making Medical Decision Making: EKG Sinus rhyhtm, 106 bpm, no ST elevations CXR no consolidation. No change from previous. Disposition Discussed With DrNessa: Suraj Antonio Jr. Doctor Will See Patient In The: Hospital - Disposition Disposition: HOSPITALIZED Disposition Time: 02:31 Condition: FAIR - Clinical Impression Clinical Impression: Chest pain
[2016-12-19 01:42] LABS: BASO # 0.1 K/uL (0.0-0.2); CHLORIDE 100 mmol/L (98-107); EOS # 0.1 K/uL (0.0-0.7); EOS % 1.1 % (0.0-4.0); HEMATOCRIT 37.7 % (35.0-51.0); LYMPH # 2.2 K/uL (1.0-4.3); LYMPH % 33.7 % (20.0-40.0); MEAN CORPUSCULAR HEMOGLOBIN 30.5 pg (27.0-31.0); MEAN CORPUSCULAR HGB CONC 33.1 g/dL (33.0-37.0); MEAN PLATELET VOLUME 9.2 fL (7.2-11.7); MONO # 1.3 K/uL (0.0-0.8); MONO % 19.9 % (0.0-10.0); NRBC % 0.2 % (0.0-2.0); PLATELET COUNT 235 K/uL (130-400); RED CELL DISTRIBUTION WIDTH 16.6 % (11.5-14.5); WHITE BLOOD COUNT 6.5 K/uL (4.8-10.8)
[2016-12-19 01:43] LABS: POTASSIUM 3.3 mmol/L (3.6-5.2); SODIUM 132 mmol/L (132-148)
[2016-12-19 01:45] LABS: ALB/GLOB RATIO 0.8 (1.0-2.1); ALKALINE PHOSPHATASE 307 U/L (38-126); AST/SGOT 208 U/L (17-59); BILIRUBIN,TOTAL 1.1 mg/dL (0.2-1.3); BLOOD UREA NITROGEN 7 mg/dL (9-20); CARBON DIOXIDE 20 mmol/L (22-30); GFR AFRICAN-AMERICAN > 60; TOTAL PROTEIN 7.9 g/dL (6.3-8.3)
[2016-12-19 01:46] LABS: ALT/SGPT 117 U/L (21-72); CALCIUM 8.3 mg/dl (8.6-10.4); GLUCOSE,RANDOM 136 mg/dL (75-110)
[2016-12-19 04:42] LABS: BASOPHIL 1 % (0-2); NEUTROPHIL 41 % (50-75); REACTIVE LYMPHOCYTES 1 % (0-0); TOTAL CELLS COUNTED 100
[2016-12-19] MEDS ORDERED: Fluticasone-Salmeterol 250-50mcg Diskus IH PRN (04:55)
[2016-12-19 05:46] VITALS: RESP 16; TEMP 98.3
[2016-12-19 05:46] LABS: URINE BILIRUBIN NEGATIVE (NEGATIVE); URINE BLOOD NEGATIVE (NEGATIVE); URINE COLOR Yellow (YELLOW); URINE GLUCOSE (UA) NORMAL (Normal); URINE KETONE NEGATIVE (NEGATIVE); URINE LEUKOCYTE ESTERASE NEG Leu/uL (Negative); URINE PROTEIN NEGATIVE (NEGATIVE); URINE UROBILINOGEN NORMAL mg/dL (0.2-1.0); WBC URINE < 1 /hpf (0-5)
--- NOTE | 2016-12-19 05:48 | CP.PCM.HP ---
History of Present Illness - History of Present Illness History of Present Illness: Medicine H/P for Dr. Antonio CC: Chest Pain HPI: Patient is a 56M with a PMH of Asthma, HTN, DM, seizure disorder, s/p CABG and Defibulator comes to the ED with a CC of Chest pain that started today. He describes the pain as "tightness". Nothing makes the pain better or worse. Started on one side of his chest but now he feels it bilaterally. It has been constant since its onset. Patient was SOB in the ambulance. The gave him Duonebs and the patient began to have PVCs so they stopped. In the ER the patient had a seizure. He was given ativan which broke the seizure. PMH: * Asthma * Seizure d/o * HTN * DM PSH: * CABG * AICD placement * Splenectomy * Inguinal hernia repair * Knee Surgery FH: unremarkable SH: smokes 2-3 ciggartes a day, drinks 2-3 beers every other day, denies illicit drug use Meds: * Albuterol * Advair * Singulair * Lasix * Eliquis * Thiamine * ASA * MTV * Keppra * Ambien * Metformin * Losartan * Folic Acid * Breo * Dig * Bentyl * Coreg * Combivent Allergies: None Full Code Present on Admission - Present on Admission Any Indicators Present on Admission: No Review of Systems - Review of Systems All systems: reviewed and no additional remarkable complaints except (per hpi) Past Patient History - Infectious Disease Hx of Infectious Diseases: None - Tetanus Immunizations Tetanus Immunization: Unknown - Past Medical History & Family History Past Medical History?: Yes - Past Social History Smoking Status: Heavy Smoker > 10 Cigarettes Daily - CARDIAC Hx Atrial Fibrillation: Yes Hx Cardia Arrhythmia: Yes Hx Congestive Heart Failure: Yes Hx Hypercholesterolemia: Yes Hx Hypertension: Yes Hx Pacemaker: Yes - PULMONARY Hx Asthma: Yes Hx Chronic Obstructive Pulmonary Disease (COPD): Yes Hx Pneumonia: Yes - NEUROLOGICAL Hx Seizures: Yes - HEENT Hx HEENT Problems: No - RENAL Hx Chronic Kidney Disease: No - ENDOCRINE/METABOLIC Hx Endocrine Disorders: Yes Hx Diabetes Mellitus Type 2: Yes - HEMATOLOGICAL/ONCOLOGICAL Hx Blood Disorders: No - INTEGUMENTARY Hx Dermatological Problems: No - MUSCULOSKELETAL/RHEUMATOLOGICAL Hx Musculoskeletal Disorders: Yes Hx Falls: Yes - GASTROINTESTINAL Hx Gastrointestinal Disorders: No - GENITOURINARY/GYNECOLOGICAL Hx Genitourinary Disorders: No - PSYCHIATRIC Hx Depression: Yes Hx Substance Use: Yes - SURGICAL HISTORY Hx Coronary Artery Bypass Graft: Yes Hx Coronary Stent: Yes (4) - ANESTHESIA Hx Anesthesia: Yes Hx Anesthesia Reactions: No Hx Malignant Hyperthermia: No Meds Allergies/Adverse Reactions: Allergies Allergy/AdvReac Type Severity Reaction Status Date / Time No Known Allergies Allergy Verified 12/19/16 00:52 Physical Exam - Constitutional Appears: Unkempt Additional comments: mild distress - Head Exam Head Exam: ATRAUMATIC, NORMAL INSPECTION, NORMOCEPHALIC - Eye Exam Eye Exam: EOMI Pupil Exam: NORMAL ACCOMODATION - ENT Exam ENT Exam: Mucous Membranes Moist - Neck Exam Neck exam: Positive for: Normal Inspection - Respiratory Exam Respiratory Exam: Wheezes Additional comments: diffuse - Cardiovascular Exam Cardiovascular Exam: Tachycardia, REGULAR RHYTHM - GI/Abdominal Exam GI & Abdominal Exam: Normal Bowel Sounds, Soft, Tenderness (mild trenderness to palpation in epigastrum). absent: Distended - Extremities Exam Extremities exam: Positive for: tenderness (Tenderness to palpation of L calf). Negative for: joint swelling - Neurological Exam Neurological exam: Alert, Oriented x3 - Psychiatric Exam Psychiatric exam: Normal Affect, Normal Mood - Skin Skin Exam: Dry, Intact, Normal Color, Warm Results - Vital Signs Recent Vital Signs: Last Vital Signs Temp 98.8 F 12/19/16 00:47 Pulse 109 H 12/19/16 01:38 Resp 20 12/19/16 01:38 BP 108/75 12/19/16 01:38 Pulse Ox 99 12/19/16 01:38 - Labs Result Diagrams: 12/19/16 01:30 12/19/16 01:30 Labs: Laboratory Results - last 24 hr 12/19/16 12/19/16 12/19/16 01:02 01:30 01:30 WBC 6.5 D RBC 4.09 L Hgb 12.5 Hct 37.7 MCV 92.0 MCH 30.5 MCHC 33.1 RDW 16.6 H Plt Count 235 MPV 9.2 Neut % (Auto) 44.3 L Lymph % (Auto) 33.7 Chambers % (Auto) 19.9 H Eos % (Auto) 1.1 Baso % (Auto) 1.0 Neut # 2.9 Lymph # 2.2 Chambers # 1.3 H Eos # 0.1 Baso # 0.1 Neutrophils % (Manual) 41 L Band Neutrophils % 3 H Lymphocytes % (Manual) 27 Reactive Lymphs % 1 H Monocytes % (Manual) 27 H Basophils % (Manual) 1 Platelet Estimate Normal PT 11.2 INR 1.0 APTT 29 Sodium Potassium Chloride Carbon Dioxide Anion Gap BUN Creatinine Est GFR ( Amer) Est GFR (Non-Af Amer) POC Glucose (mg/dL) 142 H Random Glucose Calcium Total Bilirubin AST ALT Alkaline Phosphatase Total Creatine Kinase CK-MB (Mass) Troponin I Total Protein Albumin Globulin Albumin/Globulin Ratio 12/19/16 01:30 WBC RBC Hgb Hct MCV MCH MCHC RDW Plt Count MPV Neut % (Auto) Lymph % (Auto) Chambers % (Auto) Eos % (Auto) Baso % (Auto) Neut # Lymph # Chambers # Eos # Baso # Neutrophils % (Manual) Band Neutrophils % Lymphocytes % (Manual) Reactive Lymphs % Monocytes % (Manual) Basophils % (Manual) Platelet Estimate PT INR APTT Sodium 132 Potassium 3.3 L Chloride 100 Carbon Dioxide 20 L Anion Gap 15 BUN 7 L Creatinine 0.5 L Est GFR ( Amer) > 60 Est GFR (Non-Af Amer) > 60 POC Glucose (mg/dL) Random Glucose 136 H Calcium 8.3 L Total Bilirubin 1.1 AST 208 H ALT 117 H D Alkaline Phosphatase 307 H D Total Creatine Kinase 74 CK-MB (Mass) 2.81 Troponin I 0.0220 Total Protein 7.9 Albumin 3.6 Globulin 4.3 H Albumin/Globulin Ratio 0.8 L Assessment & Plan - Assessment and Plan (Free Text) Assessment: Chest Pain * JADE panel * negative x1 * F/U JADE x2 * F/U EKG x2 Seizure D/O * Keppra 500 PO BID * Ativan 2mg IV PRN Asthma * O2 2L NC PRN * Singulair 5 PO QD * Advair 250/50 IH Q4 PRN * Spiriva 18 INH QD CHF * Echo (10/19/16) * EF 11% * AICD * Dig 0.25 PO QD * Lasix 20 PO QD * Losartan 25 PO QD DM * Accucheck * ISS High Dose * F/U A1C HTN * Coreg 3.125 PO BID * Losartan 25 PO QD Hx of CABG * Eliquis 5 PO BID * ASA 81 PO BID Hx of Alcohol Abuse * Folic acid 1 PO QD * Thiamine 100 mg PO QD Insomnia * Ambien 5 PO HS PPX * Tylenol * Colace * Pepcid * Motrin * MTV * Zofran
[2016-12-19 07:22] VITALS: O2SAT 99
[2016-12-19] MEDS ORDERED: (Novolin R) Insulin Human Regular 100 units/ml vial SC SCH (07:30)
[2016-12-19] MEDS ORDERED: Tiotropium 18 mcg Cap For Inhalation INH SCH (08:00)
[2016-12-19] MEDS ORDERED: Potassium Chloride 20 mEq ER Tab PO ONE (08:15)
[2016-12-19 08:27] VITALS: PULSE 122
--- NOTE | 2016-12-19 09:04 | RAD ---
HISTORY: Chest pain. Dyspnea. COMPARISON: 10/19/2016 FINDINGS: LUNGS: Moderate venous congestion. Patchy left basilar airspace opacity with small left pleural effusion. PLEURA: As above. CARDIOVASCULAR: Cardiomegaly. Status post median sternotomy. Left-sided pacemaker. OSSEOUS STRUCTURES: Degenerative changes in the spine and shoulders. VISUALIZED UPPER ABDOMEN: Normal. OTHER FINDINGS: None. IMPRESSION: Moderate venous congestion. Patchy left basilar airspace opacity with small left pleural effusion.
--- NOTE | 2016-12-19 09:21 | CP.PCM.PN ---
<Fahad Rowe - Last Filed: 12/19/16 09:16> Subjective - Date & Time of Evaluation Date of Evaluation: 12/19/16 Time of Evaluation: 09:16 - Subjective Subjective: PGY-1 medicine note. Patient was seen and examined at bedside this AM. He had just been given ativan , he was sleeping when I walked in. Patient was moving his extremities voluntarily, I did not notice any twitching. He still complains of chest pain on his right and left side. He denied being short of breath. He denied abdominal pain, vomiting, diarrhea, fever, chills. Objective - Vital Signs/Intake and Output Vital Signs (last 24 hours): Temp Pulse Resp BP Pulse Ox 98.3 F 122 H 16 103/60 99 12/19/16 05:44 12/19/16 07:57 12/19/16 07:10 12/19/16 07:10 12/19/16 07:10 - Medications Medications: Current Medications Acetaminophen (Tylenol 325mg Tab) 650 mg PO Q6 PRN PRN Reason: Pain, moderate (4-7) Apixaban (Eliquis) 5 mg PO Q12H PATIENCE Last Admin: 12/19/16 06:42 Dose: 5 mg Aspirin (Ecotrin) 81 mg PO DAILY PATIENCE Carvedilol (Coreg) 3.125 mg PO BID PATIENCE Digoxin (Lanoxin) 0.25 mg PO DAILY@1800 PATIENCE Docusate Sodium (Colace) 100 mg PO BID PRN PRN Reason: Constipation Famotidine (Pepcid) 20 mg PO BID PATIENCE Folic Acid (Folic Acid) 1 mg PO DAILY PATIENCE Furosemide (Lasix) 20 mg PO DAILY PATIENCE Ibuprofen (Motrin Tab) 400 mg PO Q6 PRN PRN Reason: Fever >100.4 F Last Admin: 12/19/16 06:58 Dose: 400 mg Insulin Human Regular (Novolin R) 0 unit SC ACHS PATIENCE PRN Reason: Protocol Last Admin: 12/19/16 08:33 Dose: Not Given Levetiracetam (Keppra) 500 mg PO BID PATIENCE Losartan Potassium (Cozaar) 25 mg PO DAILY PATIENCE Montelukast Sodium (Singulair) 5 mg PO HS PATIENCE Multivitamins (Hexavitamin) 1 tab PO DAILY PATIENCE Ondansetron HCl (Zofran Inj) 4 mg IVP Q6 PRN PRN Reason: Nausea/Vomiting Thiamine HCl (Vitamin B1 Tab) 100 mg PO DAILY PATIENCE Tiotropium [place] (Spiriva) 18 mcg INH RQ24 PATIENCE Zolpidem Tartrate (Ambien) 5 mg PO HS PATIENCE - Labs Labs: 12/19/16 01:30 12/19/16 01:30 PT 11.2 SECONDS (9.7-12.2) 12/19/16 01:30 INR 1.0 12/19/16 01:30 APTT 29 SECONDS (21-34) 12/19/16 01:30 - Additional Findings Additional findings: - Constitutional Appears: Unkempt Additional comments: no acute distress - Head Exam Head Exam: ATRAUMATIC, NORMAL INSPECTION, NORMOCEPHALIC - Eye Exam Eye Exam: EOMI Pupil Exam: NORMAL ACCOMODATION - ENT Exam ENT Exam: Mucous Membranes Moist - Neck Exam Neck exam: Positive for: Normal Inspection - Respiratory Exam Respiratory Exam: Wheezes Additional comments: diffuse - Cardiovascular Exam Cardiovascular Exam: Tachycardia, REGULAR RHYTHM - GI/Abdominal Exam GI & Abdominal Exam: Normal Bowel Sounds, Soft absent: Distended, tenderness - Extremities Exam Extremities exam: Positive for: tenderness (Tenderness to palpation of L calf). Negative for: joint swelling - Neurological Exam Neurological exam: Alert, Oriented x3 - Psychiatric Exam Psychiatric exam: Normal Affect, Normal Mood - Skin Skin Exam: Dry, Intact, Normal Color, Warm Assessment and Plan - Assessment and Plan (Free Text) Assessment: Chest Pain * JADE panel * negative x1 * F/U JADE x2 * F/U EKG x2 Seizure D/O * Keppra 500 PO BID * Ativan 2mg IV PRN Asthma * O2 2L NC PRN * Singulair 5 PO QD * Advair 250/50 IH Q4 PRN * Spiriva 18 INH QD CHF * Echo (10/19/16) * EF 11% * AICD * Dig 0.25 PO QD * Lasix 20 PO QD * Losartan 25 PO QD DM * Accucheck * ISS High Dose * Metformin 500mg bid * F/U A1C HTN * Coreg 3.125 PO BID * Losartan 25 PO QD Hx of CABG * Eliquis 5 PO BID * ASA 81 PO BID Hx of Alcohol Abuse * Folic acid 1 PO QD * Thiamine 100 mg PO QD Insomnia * Ambien 5 PO HS PPX * Tylenol * Colace * Pepcid * Motrin * MTV * Zofran * Heart healthy diet <Suraj Antonio Jr. - Last Filed: 12/26/16 13:14> Objective - Vital Signs/Intake and Output Vital Signs (last 24 hours): Temp Pulse Resp BP Pulse Ox 98.3 F 122 H 16 110/72 99 12/19/16 05:44 12/19/16 07:57 12/19/16 07:10 12/19/16 10:51 12/19/16 07:10 - Labs Labs: 12/19/16 01:30 12/19/16 01:30 PT 11.2 SECONDS (9.7-12.2) 12/19/16 01:30 INR 1.0 12/19/16 01:30 APTT 29 SECONDS (21-34) 12/19/16 01:30 Attending/Attestation - Attestation I have personally seen and examined this patient.: Yes I have fully participated in the care of the patient.: Yes I have reviewed all pertinent clinical information, including history, physical exam and plan: Yes Notes (Text): 12/26/16 13:14 Agree with resident note and plan of care
[2016-12-19] MEDS ORDERED: Multiple Vitamins Tab PO SCH (10:00)
[2016-12-19 10:53] VITALS: BP 110/72
--- NOTE | 2016-12-19 13:30 | CP.PCM.DIS ---
Provider - Provider Date of Admission: 12/19/16 04:36 Attending physician: Suraj Antonio Jr, MD Primary care physician: PMD: Dr Antonio Time Spent in preparation of Discharge (in minutes): 20 Hospital Course - Lab Results Lab Results: Most Recent Lab Values WBC 6.5 K/uL (4.8-10.8) D 12/19/16 01:30 RBC 4.09 Mil/uL (4.40-5.90) L 12/19/16 01:30 Hgb 12.5 g/dL (12.0-18.0) 12/19/16 01:30 Hct 37.7 % (35.0-51.0) 12/19/16 01:30 MCV 92.0 fL (80.0-94.0) 12/19/16 01:30 MCH 30.5 pg (27.0-31.0) 12/19/16 01:30 MCHC 33.1 g/dL (33.0-37.0) 12/19/16 01:30 RDW 16.6 % (11.5-14.5) H 12/19/16 01:30 Plt Count 235 K/uL (130-400) 12/19/16 01:30 MPV 9.2 fL (7.2-11.7) 12/19/16 01:30 Neut % (Auto) 44.3 % (50.0-75.0) L 12/19/16 01:30 Lymph % (Auto) 33.7 % (20.0-40.0) 12/19/16 01:30 [place] % (Auto) 19.9 % (0.0-10.0) H 12/19/16 01:30 Eos % (Auto) 1.1 % (0.0-4.0) 12/19/16 01:30 Baso % (Auto) 1.0 % (0.0-2.0) 12/19/16 01:30 Neut # 2.9 K/uL (1.8-7.0) 12/19/16 01:30 Lymph # 2.2 K/uL (1.0-4.3) 12/19/16 01:30 [place] # 1.3 K/uL (0.0-0.8) H 12/19/16 01:30 Eos # 0.1 K/uL (0.0-0.7) 12/19/16 01:30 Baso # 0.1 K/uL (0.0-0.2) 12/19/16 01:30 Neutrophils % (Manual) 41 % (50-75) L 12/19/16 01:30 Band Neutrophils % 3 % (0-2) H 12/19/16 01:30 Lymphocytes % (Manual) 27 % (20-40) 12/19/16 01:30 Reactive Lymphs % 1 % (0-0) H 12/19/16 01:30 Monocytes % (Manual) 27 % (0-10) H 12/19/16 01:30 Basophils % (Manual) 1 % (0-2) 12/19/16 01:30 Platelet Estimate Normal (NORMAL) 12/19/16 01:30 PT 11.2 SECONDS (9.7-12.2) 12/19/16 01:30 INR 1.0 12/19/16 01:30 APTT 29 SECONDS (21-34) 12/19/16 01:30 Sodium 132 mmol/L (132-148) 12/19/16 01:30 Potassium 3.3 mmol/L (3.6-5.2) L 12/19/16 01:30 Chloride 100 mmol/L (98-107) 12/19/16 01:30 Carbon Dioxide 20 mmol/L (22-30) L 12/19/16 01:30 Anion Gap 15 (10-20) 12/19/16 01:30 BUN 7 mg/dL (9-20) L 12/19/16 01:30 Creatinine 0.5 mg/dL (0.8-1.5) L 12/19/16 01:30 Est GFR ( Amer) > 60 12/19/16 01:30 Est GFR (Non-Af Amer) > 60 12/19/16 01:30 POC Glucose (mg/dL) 128 mg/dL (65-110) H 12/19/16 11:49 Random Glucose 136 mg/dL (75-110) H 12/19/16 01:30 Calcium 8.3 mg/dl (8.6-10.4) L 12/19/16 01:30 Total Bilirubin 1.1 mg/dL (0.2-1.3) 12/19/16 01:30 AST 208 U/L (17-59) H 12/19/16 01:30 ALT 117 U/L (21-72) H D 12/19/16 01:30 Alkaline Phosphatase 307 U/L (38-126) H D 12/19/16 01:30 Total Creatine Kinase 55 U/L (55-170) 12/19/16 09:31 CK-MB (Mass) 2.42 ng/mL (0.0-3.38) 12/19/16 09:31 Troponin I 0.0220 ng/mL (0.00-0.120) 12/19/16 01:30 Troponin I, Quant 0.0230 ng/mL (0.00-0.120) 12/19/16 09:31 Total Protein 7.9 g/dL (6.3-8.3) 12/19/16 01:30 Albumin 3.6 g/dL (3.5-5.0) 12/19/16 01:30 Globulin 4.3 gm/dL (2.2-3.9) H 12/19/16 01:30 Albumin/Globulin Ratio 0.8 (1.0-2.1) L 12/19/16 01:30 Urine Color Yellow (YELLOW) 12/19/16 05:33 Urine Clarity Clear (Clear) 12/19/16 05:33 Urine pH 6.0 (5.0-8.0) 12/19/16 05:33 Ur Specific [place] 1.008 (1.003-1.030) 12/19/16 05:33 Urine Protein Negative mg/dL (NEGATIVE) 12/19/16 05:33 Urine Glucose (UA) Normal mg/dL (Normal) 12/19/16 05:33 Urine Ketones Negative mg/dL (NEGATIVE) 12/19/16 05:33 Urine Blood Negative (NEGATIVE) 12/19/16 05:33 Urine Nitrate Negative (NEGATIVE) 12/19/16 05:33 Urine Bilirubin Negative (NEGATIVE) 12/19/16 05:33 Urine Urobilinogen Normal mg/dL (0.2-1.0) 12/19/16 05:33 Ur Leukocyte Esterase Neg Jesu/uL (Negative) 12/19/16 05:33 Urine WBC (Auto) < 1 /hpf (0-5) 12/19/16 05:33 - Hospital Course Hospital Course: Medicine H/P for Dr. Antonio CC: Chest Pain HPI: Patient is a 56M with a PMH of Asthma, HTN, DM, seizure disorder, s/p CABG and Defibulator comes to the ED with a CC of Chest pain that started today. He describes the pain as "tightness". Nothing makes the pain better or worse. Started on one side of his chest but now he feels it bilaterally. It has been constant since its onset. Patient was SOB in the ambulance. The gave him Duonebs and the patient began to have PVCs so they stopped. In the ER the patient had a seizure. He was given ativan which broke the seizure. PMH: * Asthma * Seizure d/o * HTN * DM PSH: * CABG * AICD placement * Splenectomy * Inguinal hernia repair * Knee Surgery FH: unremarkable SH: smokes 2-3 ciggartes a day, drinks 2-3 beers every other day, denies illicit drug use Meds: * Albuterol * Advair * Singulair * Lasix * Eliquis * Thiamine * ASA * MTV * Keppra * Ambien * Metformin * Losartan * Folic Acid * Breo * Dig * Bentyl * Coreg * Combivent Allergies: None Full Code HOSPITAL COURSE: Patient eloped on 12/19/16. While here he was treated for his chest pain. Troponins were drawn which was negative and an EKG did not show acute ST changes. CXR showed moderate venous congestion and small left pleural effusion. His home medications were continued to treat his various medical conditions. Discharge Exam - Additional Findings Additional findings: - Constitutional Appears: Unkempt Additional comments: no acute distress - Head Exam Head Exam: ATRAUMATIC, NORMAL INSPECTION, NORMOCEPHALIC - Eye Exam Eye Exam: EOMI Pupil Exam: NORMAL ACCOMODATION - ENT Exam ENT Exam: Mucous Membranes Moist - Neck Exam Neck exam: Positive for: Normal Inspection - Respiratory Exam Respiratory Exam: Wheezes Additional comments: diffuse - Cardiovascular Exam Cardiovascular Exam: Tachycardia, REGULAR RHYTHM - GI/Abdominal Exam GI & Abdominal Exam: Normal Bowel Sounds, Soft absent: Distended, tenderness - Extremities Exam Extremities exam: Positive for: tenderness (Tenderness to palpation of L calf). Negative for: joint swelling - Neurological Exam Neurological exam: Alert, Oriented x3 - Psychiatric Exam Psychiatric exam: Normal Affect, Normal Mood - Skin Skin Exam: Dry, Intact, Normal Color, Warm Discharge Plan - Follow Up Plan Condition: FAIR Disposition: ELOPED FROM NURSING UNIT
[2016-12-19] MEDS ORDERED: Digoxin 250 mcg (0.25 mg) Tab PO SCH (18:00)
[2016-12-20] MEDS ORDERED: Influenza Vaccine 60 mcg/0.5 mL SYR (4YR UP) IM ONE (10:00)
--- NOTE | 2016-12-20 22:28 | CARD ---
APPROVED REPORT EKG Measurement Heart [id number] <Conclusion> Sinus tachycardia with fusion complexes Septal infarct, age undetermined Abnormal ECG
== END 2016-12-19 11:55 | disposition left against medical advice (07) ==
LOC: C.ER 00:40 → C.9E 04:36 → C.6T 06:26
PROVIDERS: ADMIT Internal Medicine; ATTEND Internal Medicine
DX: R07.89 Other chest pain (principal); I25.10 Atherosclerotic heart disease of native coronary artery without angina pectoris; G40.909 Epilepsy, unspecified, not intractable, without status epilepticus; G47.00 Insomnia, unspecified; I11.0 Hypertensive heart disease with heart failure; I49.3 Ventricular premature depolarization; I50.9 Heart failure, unspecified; J44.9 Chronic obstructive pulmonary disease, unspecified; I48.91 Unspecified atrial fibrillation; E11.9 Type 2 diabetes mellitus without complications; Z79.84 Long term (current) use of oral hypoglycemic drugs; Z87.891 Personal history of nicotine dependence; Z95.810 Presence of automatic (implantable) cardiac defibrillator; Z95.5 Presence of coronary angioplasty implant and graft
CPT/HCPCS: 36415; 71010; 80053; 81001; 82550; 82553; 82948; 84484; 85025; 85610; 85730; 87086; 96374; G0378; J2060

== ENCOUNTER 2017-04-05 07:13 | Emergency (ER) | payer OTHER ==
[2017-04-05 07:13] VITALS: PULSE 152
[2017-04-05 07:19] VITALS: BMI 45.4
[2017-04-05] MEDS ORDERED: Albuterol-Ipratrop 3 mg / 0.5 (3 ml) UD INH STA ×2 (07:44→10:02)
[2017-04-05 07:56] LABS: VENOUS BLOOD GAS BASE EXCESS 2.8 mmol/L (0.0-2.0); VENOUS BLOOD GAS PCO2 40 mmHg (40-60); VENOUS BLOOD GAS PO2 88 mm/Hg (30-55); VENOUS BLOOD PH 7.44 (7.32-7.43)
[2017-04-05] MEDS ORDERED: Albuterol-Ipratrop 3 mg / 0.5 (3 ml) UD ONE ×2 (07:59→09:38)
[2017-04-05 08:05] VITALS: TEMP 98.1
[2017-04-05 08:09] LABS: BASO % 0.5 % (0.0-2.0); EOS % 0.3 % (0.0-4.0); HEMOGLOBIN 11.6 g/dL (12.0-18.0); LYMPH # 1.7 K/uL (1.0-4.3); LYMPH % 16.7 % (20.0-40.0); MEAN CELL VOLUME 88.1 fL (80.0-94.0); MEAN CORPUSCULAR HEMOGLOBIN 28.7 pg (27.0-31.0); MEAN CORPUSCULAR HGB CONC 32.6 g/dL (33.0-37.0); MEAN PLATELET VOLUME 8.9 fL (7.2-11.7); MONO # 1.1 K/uL (0.0-0.8); MONO % 10.7 % (0.0-10.0); NEUT # 7.3 K/uL (1.8-7.0); NEUT % 71.8 % (50.0-75.0); NRBC % 0.4 % (0.0-2.0); RBC 4.05 Mil/uL (4.40-5.90); RED CELL DISTRIBUTION WIDTH 18.5 % (11.5-14.5); WHITE BLOOD COUNT 10.1 K/uL (4.8-10.8)
[2017-04-05 08:18] LABS: INR 0.9
--- NOTE | 2017-04-05 08:18 | RAD ---
PROCEDURE: CHEST RADIOGRAPH, 1 VIEW HISTORY: sob COMPARISON: 12/19/2016 FINDINGS: LUNGS: Moderate pulmonary venous congestion - slightly increased since prior. The limited visualization of the left lung base is as before. No obliterated left hemidiaphragm noted. PLEURA: No pneumothorax. No current left pleural effusion suggested per blunted left costophrenic angle CARDIOVASCULAR: Cardiomegaly -similar Position/ configuration of pacemaker Sternal wires coronary artery bypass clips noted. OSSEOUS STRUCTURES: Thoracic spondylosis and bilateral shoulder arthrosis-similar VISUALIZED UPPER ABDOMEN: Normal. OTHER FINDINGS: None. IMPRESSION: Moderate pulmonary venous congestion -slightly increased. Shallow lung volumes noted. Cardiomegaly -similar
--- NOTE | 2017-04-05 08:27 | C.PDOC ---
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 Patient has PMHX of CAD with stents s/p CABG, AICD, HTN, seizure disorder (Keppra), A fib, COPD, CHF. He admits to productive cough with clear sputum, but denies fever, abdominal pain, nausea/vomiting/diarrhea, seizures. Time Seen by Provider: 04/05/17 07:15 Chief Complaint (Nursing): Shortness Of Breath History Per: Patient, EMS History/Exam Limitations: no limitations Onset/Duration Of Symptoms: Hrs Current Symptoms Are (Timing): Still Present Quality: "Pain" Current Respiratory Medications: See Home Med List Severity: Moderate Past Medical History Reviewed: Historical Data, Nursing Documentation, Vital Signs Vital Signs: Last Vital Signs Temp 98.1 F 04/05/17 07:18 Pulse 94 H 04/05/17 14:01 Resp 14 04/05/17 14:01 BP 136/83 04/05/17 14:01 Pulse Ox 97 04/11/17 11:56 - Medical History PMH: Asthma, Atrial Fibrillation, Back Problems, Cardia Arrhythmia, CHF, COPD, Depression, HTN, Hypercholesterolemia, Pneumonia, Seizures Surgical History: CABG, Coronary Stent (4), Pacemaker - [facility] Procedures ASSISTANCE WITH RESPIRATORY VENTILATION, 24-96 HRS, CPAP (11/06/16) CORONAR ARTERIOGR-2 CATH (06/24/14) CORONARY ARTERY STENT INSERTION [id number] (06/24/14) INFLUENZA VACCINATION (04/25/14) INSERTION OF ONE VASCULAR STENT (06/24/14) INTRODUCE OF OTH THERAP SUBST INTO RESP TRACT, VIA OPENING (06/19/15) INTRODUCTION OF SERUM/TOX/VACCINE INTO MUSCLE, PERC APPROACH (01/05/16) LEFT HEART CARDIAC CATH (06/24/14) NEBULIZER THERAPY (07/12/14) PERCUTANEOUS TRANSLUMINAL CORONARY ANGIOPLASTY [PTCA] (06/24/14) PROCEDURE ON SINGLE VESSEL (06/24/14) VACCINATION NEC (04/25/14) Family History: States: Diabetes - Social History Hx Tobacco Use: Yes Hx Alcohol Use: No Hx Substance Use: Yes - Immunization History Hx Tetanus Toxoid Vaccination: No Hx Influenza Vaccination: No Hx Pneumococcal Vaccination: No Review Of Systems Except As Marked, All Systems Reviewed And Found Negative. Constitutional: Negative for: Fever, Chills Cardiovascular: Positive for: Chest Pain. Negative for: Palpitations Respiratory: Positive for: Cough, Shortness of Breath, Sputum, Wheezing Gastrointestinal: Negative for: Nausea, Vomiting, Abdominal Pain, Diarrhea Genitourinary: Negative for: Dysuria Skin: Negative for: Rash Physical Exam - Physical Exam Appears: Well, Non-toxic, In Acute Distress (in moderate distress) Skin: Normal Color, Warm, Dry Eye(s): bilateral: Normal Inspection Oral Mucosa: Moist Cardiovascular: Rhythm Regular (tachycardic, occasionallr irregular ) Respiratory: Accessory Muscle Use (mild), Rales (B/L bases), Rhonchi (B/L), Wheezing (B/L expiratory wheezing) Gastrointestinal/Abdominal: Bowel Sounds, Soft, No Tenderness, Distention (mild) Extremity: Pedal Edema (+1 pitting edema B/L LEs), No Calf Tenderness Pulses: Left Dorsalis Pedis: Normal, Right Dorsalis Pedis: Normal Neurological/Psych: Oriented x3 ED Course And Treatment - Laboratory Results Result Diagrams: 04/05/17 08:03 04/05/17 08:03 ECG: Interpreted By Me, Viewed By Me (sinus tachycardia 107 bpm, PVCs, normal axis, Q waves II, III, aVF, T wave inversions V6, no acute ST changes) ECG Interpretation: Abnormal O2 Sat by Pulse Oximetry: 97 (ra) Pulse Ox Interpretation: Normal - Radiology CXR: Interpreted by Me, Viewed By Me CXR Interpretation: Yes: Other (pulmonary vascular congestion, no infiltrates/ effusions) Progress Note: Blood work, CXR, EKG ordered and reviewed. Patient placed on Bipap, given IV Lasix, IV solumedrol, PO ASA, PO Keppra and IV Morphine. 10: 00am- Patient's PMD is Dr. Naranjo, has been admitted several times by Dr. Hernandez in the past. Dr. Hernandez in ED, agrees with admission for left sided chest pain, dyspnea, copd/chf exacebation. Reevaluation Time: 09:45 Reassessment Condition: Improved - Physician Consult Information Physician Contacted: Juanjose Hernandez Disposition - Disposition Disposition: AGAINST MEDICAL ADVICE Disposition Time: 10:02 Condition: STABLE Forms: [employer] ([place]an) - Clinical Impression Clinical Impression: COPD exacerbation, CHF exacerbation, Dyspnea, Chest pain Decision To Admit - Pt Status Changed To: Hospital Disposition Of: Inpatient - Admit Certification Admit to Inpatient:: After my assessment, the patient will require hospitalization for at least two midnights. This is because of the severity of symptoms shown, intensity of services needed, and/or the medical risk in this patient being treated as an outpatient. - InPatient: Physician Admission Certification: I certify that this patient requires 2 or more midnights of care for the following reason:: SEE NOTES - . Bed Request Type: Telemetry Admitting Physician: Juanjose Hernandez Patient Diagnosis: COPD exacerbation, CHF exacerbation, Dyspnea, Chest pain
[2017-04-05 08:29] LABS: ALB/GLOB RATIO 1.2 (1.0-2.1); ALBUMIN 3.8 g/dL (3.5-5.0); ALT/SGPT 153 U/L (21-72); AST/SGOT 125 U/L (17-59); BLOOD UREA NITROGEN 16 mg/dL (9-20); CALCIUM 8.6 mg/dl (8.6-10.4); GFR AFRICAN-AMERICAN > 60; GFR NON-AFRICAN AMERICAN > 60
[2017-04-05 08:40] LABS: CK-MB 2.27 ng/mL (0.0-3.38)
[2017-04-05] MEDS ORDERED: Albuterol 0.083% Inhal Sol (2.5 mg/3 mL) UD IH STA (09:29)
[2017-04-05 09:31] LABS: B-TYPE NATRIURETIC PEPTIDE 601 pg/mL (0-900)
[2017-04-05 10:01] LABS: URINE BILIRUBIN NEGATIVE (NEGATIVE); URINE BLOOD NEGATIVE (NEGATIVE); URINE CLARITY Clear (Clear); URINE COLOR Colorless (YELLOW); URINE GLUCOSE (UA) NORMAL (Normal); URINE LEUKOCYTE ESTERASE NEG Leu/uL (Negative); URINE NITRATE NEGATIVE (NEGATIVE); URINE PROTEIN NEGATIVE (NEGATIVE); URINE UROBILINOGEN NORMAL mg/dL (0.2-1.0)
[2017-04-05 10:19] LABS: BARBITURATES, UR NEGATIVE (NEGATIVE); BENZODIAZEPINES, UR NEGATIVE (NEGATIVE); OPIATES, UR NEGATIVE (NEGATIVE); PHENCYCLIDINE, UR NEGATIVE (NEGATIVE)
[2017-04-05] MEDS ORDERED: Morphine 4 MG/ML VIAL ONE (10:36)
--- NOTE | 2017-04-05 11:26 | CP.PCM.PN ---
Subjective - Date & Time of Evaluation Date of Evaluation: 04/05/17 Time of Evaluation: 11:25 - Subjective Subjective: PGY2 Progress note for Dr. Burkett This 56 year old male with PMHx of CHF, CAD with CABG, stents X5, A.fib, HTN, Alcohol abuse, COPD, seizures, lacunar strokes - presents to the ED via ambulance with complaints of SOB and left sided chest pain that is sharp, constant and nonradiating since 3am this morning. He also c/o cough with production of clear sputum for the past 4 days. The only medications he has taken are his home prescription medications, last taken yesterday. He states his chest pain is reproducible with deep inspiration. He also complains of sharp L sided back pain that began this morning. He denies difficulty urinating , hematuria, burning on urination, hesitancy, or any additional urinary complaints. He denies fever, abdominal pain, nausea/vomiting/diarrhea, or seizures. He was drinking alcohol last night, but would not quantify, stating he had "a few beers." PMHx: alcohol abuse, smoking, COPD, CHF ischemic cardiomyopathy EF 15-25% s/p AICD, h/o aflutter, not on anticoagulation due to non compliance, CAD, s/p CABG 8 yrs back, s/p PCI post cabg 5, s/p AICD last year, seizures, multiple lacunar strokes. Surgical Hx: CABG, spleen resection, AICD placement, inguinal hernia and has 2 screws in his ankle. Medications: see EMR Family Hx: Father and Mother with "heart problems" Social Hx: admits to tobacco use, states he drinks 3 [employer] beers 3 times a week. PMD: Dr. Foster Objective - Vital Signs/Intake and Output Vital Signs (last 24 hours): Temp Pulse Resp BP Pulse Ox 98.1 F 101 H 31 H 142/75 97 04/05/17 07:18 04/05/17 08:37 04/05/17 07:20 04/05/17 07:18 04/05/17 10:04 - Labs Labs: 04/05/17 08:03 04/05/17 08:03 PT 10.0 SECONDS (9.7-12.2) 04/05/17 08:03 INR 0.9 04/05/17 08:03 APTT 24 SECONDS (21-34) 04/05/17 08:03 - Additional Findings Additional findings: - Constitutional Appears: Unkempt - Head Exam Head Exam: ATRAUMATIC, NORMAL INSPECTION, NORMOCEPHALIC - Eye Exam Eye Exam: EOMI Pupil Exam: NORMAL ACCOMODATION - ENT Exam ENT Exam: Mucous Membranes Moist - Neck Exam Neck exam: Positive for: Normal Inspection - Respiratory Exam Respiratory Exam: Rales; absent: Wheezes, Rhonchi -Tenderness to palpation of L chest along Ribs 3-6. - Cardiovascular Exam Cardiovascular Exam: Tachycardia, REGULAR RHYTHM - GI/Abdominal Exam GI & Abdominal Exam: Normal Bowel Sounds, Soft; absent: Distended, Tenderness - Extremities Exam Extremities exam: Negative for: joint swelling, Tenderness - Back Exam Back exam: Positive for: CVA Tenderness (L) - Neurological Exam Neurological exam: Alert, Oriented x3 - Psychiatric Exam Psychiatric exam: Normal Affect, Normal Mood - Skin Skin Exam: Dry, Intact, Normal Color, Warm Assessment and Plan - Assessment and Plan (Free Text) Assessment: Left Sided Chest Pain * Likely costochondritis * JADE panel * negative x1 * F/U JADE x2 * F/U EKG x2 Left CVA Tenderness * r/o pyelonephritis (unlikely, no fever, UA negative) * f/u UC * f/u Renal/bladder Ultrasound in AM (plan for dieresis and stabilize prior to exam) Dyspnea / COPD Exacerbation * Bipap * Singulair 10 PO QD * Advair 250/50 IH Q4 PRN * Spiriva 18 INH QD * Duoneb PRN SOB * Prednisone (Prednisone Tab) 20 mg PO DAILY PATIENCE Seizure D/O * Keppra 500 PO BID CHF * Echo (10/19/16) * EF 11% * AICD * Dig 0.25 PO QD * Lasix 40 mg IVP Q12 PATIENCE * Hold Losartan 25 PO QD DM * Accucheck * ISS High Dose * Metformin 500mg bid * Lisinopril 5 mg PO DAILY PATIENCE HTN * Coreg 3.125 PO BID * Lisinopril 5 mg PO DAILY PATIENCE Hx of CABG * Eliquis 5 PO BID * ASA 81 PO qD Hx of Alcohol Abuse * Folic acid 1 PO QD * Thiamine 100 mg PO QD * ETOH level 101H Insomnia * Ambien 5 PO HS PPX * Pepcid 20 mg PO BID PATIENCE * MTV * Heart healthy diet * SCDs Case discussed with attending. All management as per Dr. Burkett.
[2017-04-05 14:02] VITALS: BP 136/83; PULSE 94; RESP 14
[2017-04-05] MEDS ORDERED: Albuterol-Ipratrop 3 mg / 0.5 (3 ml) UD INH PRN (15:00)
[2017-04-05] MEDS ORDERED: Tramadol 25 mg PO SCH (15:15)
[2017-04-05] MEDS ORDERED: (Novolin R) Insulin Human Regular 100 units/ml vial ONE (15:22)
[2017-04-05] MEDS ORDERED: (Novolog) Insulin Aspart, Recombinant 100 u/ml 10 ml vial SC SCH (16:30)
--- NOTE | 2017-04-05 17:06 | US ---
PROCEDURE: Ultrasound of the Kidneys /urinary bladder HISTORY: Left CVA Tenderness COMPARISON: None available. TECHNIQUE: Sonogram of the kidneys and urinary bladder. FINDINGS: Emanation limited by habitus and bowel gas. RIGHT KIDNEY: Measures: 9.6 x 5.0 x 5.1 cm. No obstructing calculus or hydronephrosis identified. 1 cm mid to upper pole renal cyst. 5 mm upper pole calculus. LEFT KIDNEY: Measures: 9.5 x 5.0 x 4.9 cm. No obstructing calculus or hydronephrosis identified. 1.8 cm midpole cyst. 0.9 cm mid to upper pole renal cyst. No obstructing calculus. OTHER FINDINGS: The prostate gland measures approximately 17.5 cc. Prevoid urinary bladder measures approximately 91.2 cc. Postvoid urinary bladder measures approximately 19.5 cc. Bilateral ureteral jets were not identified. IMPRESSION: Limited study. Bilateral renal cysts. Nonobstructing 5 mm upper pole calculus, right kidney. No hydronephrosis. Prevoid urinary bladder measures approximately 91.2 cc. Postvoid urinary bladder measures approximately 19.5 cc. Bilateral ureteral jets were not identified.
[2017-04-05 17:15] LABS: CK-MB 1.89 ng/mL (0.0-3.38); TROPONIN I 0.017 ng/mL (0.00-0.120)
[2017-04-05] MEDS ORDERED: Digoxin 250 mcg (0.25 mg) Tab PO SCH (18:00)
[2017-04-05] MEDS ORDERED: Albuterol-Ipratrop 3 mg / 0.5 (3 ml) UD INH SCH (20:00)
[2017-04-06] MEDS ORDERED: Multiple Vitamins Tab PO SCH (10:00)
--- NOTE | 2017-04-06 16:58 | CARD ---
APPROVED REPORT EKG Measurement Heart [id number] <Conclusion> Sinus tachycardia with occasional premature ventricular complexes Left ventricular hypertrophy with repolarization abnormality Possible Inferior infarct, age undetermined Abnormal ECG
[2017-04-08 14:16] LABS: LEVETIRACETAM <1.0 mcg/mL
[2017-04-11 11:55] VITALS: O2SAT 97
== END 2017-04-05 18:37 | disposition left against medical advice (07) ==
LOC: C.ER 07:13 → UNDOADMIN 10:02 → C.9E 10:02 → C.6T 18:13 → C.9E 18:35 → C.6T 18:35 → C.ER 18:37 → UNDODISIN 18:37
DX: J44.1 Chronic obstructive pulmonary disease with (acute) exacerbation (principal); I50.9 Heart failure, unspecified; R07.9 Chest pain, unspecified; R06.00 Dyspnea, unspecified; I10 Essential (primary) hypertension; I48.91 Unspecified atrial fibrillation; Z87.891 Personal history of nicotine dependence; E78.00 Pure hypercholesterolemia, unspecified; I25.10 Atherosclerotic heart disease of native coronary artery without angina pectoris
CPT/HCPCS: 36415; 71045; 76770; 76857; 80053; 80299; 80320; 80324; 80345; 80346; 80349; 80353; 80358; 80361; 81001; 82803; 82948; 83880; 83992; 84484; 85025; 85610; 85730; 87040; 87086; 87804; 93005; 94640; 94660; 96374; 96375; 99285; J1940; J2270; J2930

== ENCOUNTER 2017-08-12 06:42 | Inpatient (IN) | payer OTHER ==
[2017-08-12 06:42] VITALS: BMI 11.7
[2017-08-12] MEDS ORDERED: Sodium Chloride 0.9% 1,000 ML IV ONE (06:48)
--- NOTE | 2017-08-12 06:53 | C.PDOC ---
History Of Present Illness pt presents in respiratory distress. Told medics that he has been coughing for about 2 days. Pt has strong alcohol on breath and diffuse tremors. Has been drinking. and is know for alcohol abuse. Speaking in 1-2 word sentences. Denies chest pain Time Seen by Provider: 08/12/17 06:42 Chief Complaint (Nursing): Respiratory Distress History Per: EMS History/Exam Limitations: clinical condition, intoxication Onset/Duration Of Symptoms: Hrs Current Symptoms Are (Timing): Worse Initiating Event: Other Exacerbating Factor(s): Coughing Current Respiratory Medications: See Home Med List Severity: Severe Pain Scale Rating Of: 8 Associated Symptoms: Sweating. denies: Fever, Chills Reports Recently: Seen In ED, Treated By A Physician, Hospitalized Recent travel outside of the [place]: No Additional History Per: EMS Past Medical History Reviewed: Historical Data, Nursing Documentation, Vital Signs - Medical History PMH: Asthma, Atrial Fibrillation, Back Problems, Cardia Arrhythmia, CHF, COPD, Depression, HTN, Hypercholesterolemia, Pneumonia, Seizures Denies: Chronic Kidney Disease Surgical History: CABG, Coronary Stent (4), Pacemaker - [facility] Procedures ASSISTANCE WITH RESPIRATORY VENTILATION, 24-96 HRS, CPAP (11/06/16) CORONAR ARTERIOGR-2 CATH (06/24/14) CORONARY ARTERY STENT INSERTION [id number] (06/24/14) INFLUENZA VACCINATION (04/25/14) INSERTION OF ONE VASCULAR STENT (06/24/14) INTRODUCE OF OTH THERAP SUBST INTO RESP TRACT, VIA OPENING (06/19/15) INTRODUCTION OF SERUM/TOX/VACCINE INTO MUSCLE, PERC APPROACH (01/05/16) LEFT HEART CARDIAC CATH (06/24/14) NEBULIZER THERAPY (07/12/14) PERCUTANEOUS TRANSLUMINAL CORONARY ANGIOPLASTY [PTCA] (06/24/14) PROCEDURE ON SINGLE VESSEL (06/24/14) VACCINATION NEC (04/25/14) Family History: States: Diabetes - Social History Hx Tobacco Use: Yes Hx Alcohol Use: No Hx Substance Use: Yes - Immunization History Hx Tetanus Toxoid Vaccination: No Hx Influenza Vaccination: No Hx Pneumococcal Vaccination: No Review Of Systems Review Of Systems: ROS cannot be obtained secondary to pt's inabilty to answer questions. Physical Exam - Physical Exam Appears: In Acute Distress Skin: Warm, Diaphoretic Head: Normacephalic Eye(s): bilateral: Normal Inspection Oral Mucosa: Moist Neck: Supple Chest: Symmetrical Cardiovascular: Rhythm Regular Respiratory: Decreased Breath Sounds, No Rales, Rhonchi (few), Wheezing Gastrointestinal/Abdominal: Soft, No Tenderness, No Distention Male Genital: Normal Inspection Extremity: Normal ROM Extremity: Bilateral: Atraumatic Neurological/Psych: Oriented x3 Gait: Unable To Assess ED Course And Treatment Pulse Ox Interpretation: Normal (99) Progress Note: pt with small withsrawl seizure. 1 mg iv ativan given. vitals stable Critical Care Time - Critical Care Note Total Time (in mins): 30 Documented critical care: time excludes all time spent performing seperately billable procedures. Disposition - Disposition Disposition Time: 07:00 Condition: GUARDED Forms: [employer] (Uzbek) - Clinical Impression Clinical Impression: Exacerbation of asthma, Alcohol abuse, Respiratory distress Physician Patient Turnover Patient Signed Over To: [place] Handoff Comments: pending labs, re-eval and disposition
[2017-08-12] MEDS ORDERED: Sodium Chloride 0.9% 1,000 ML ONE (07:12)
[2017-08-12 07:15] LABS: VENOUS BLOOD GAS BASE EXCESS 0.8 mmol/L (0.0-2.0); VENOUS BLOOD GAS PCO2 43 mmHg (40-60); VENOUS BLOOD GAS PO2 85 mm/Hg (30-55); VENOUS BLOOD PH 7.39 (7.32-7.43)
[2017-08-12] MEDS: Albuterol-Ipratrop 3 mg / 0.5 (3 ml) UD IH SCH ×3 (07:15→07:45)
[2017-08-12 07:19] LABS: HEMOGLOBIN 12.2 g/dL (12.0-18.0); MEAN CELL VOLUME 89.1 fL (80.0-94.0); MEAN CORPUSCULAR HEMOGLOBIN 29.6 pg (27.0-31.0); MEAN CORPUSCULAR HGB CONC 33.3 g/dL (33.0-37.0); MEAN PLATELET VOLUME 9.3 fL (7.2-11.7); RBC 4.12 Mil/uL (4.40-5.90); RED CELL DISTRIBUTION WIDTH 18.7 % (11.5-14.5); WHITE BLOOD COUNT 5.8 K/uL (4.8-10.8)
[2017-08-12] MEDS ORDERED: Albuterol-Ipratrop 3 mg / 0.5 (3 ml) UD ONE (07:21)
[2017-08-12 07:29] LABS: ALB/GLOB RATIO 1.3 (1.0-2.1); ALBUMIN 4.2 g/dL (3.5-5.0); ALT/SGPT 215 U/L (21-72); AST/SGOT 273 U/L (17-59); BLOOD UREA NITROGEN 2 mg/dL (9-20); CALCIUM 8.7 mg/dl (8.6-10.4); GFR AFRICAN-AMERICAN > 60; GFR NON-AFRICAN AMERICAN > 60
[2017-08-12 07:32] LABS: INR 0.9; PROTHROMBIN TIME 10.3 SECONDS (9.7-12.2)
[2017-08-12 08:04] LABS: SQUAMOUS EPITHIAL < 1 /hpf (0-5); URINE BILIRUBIN NEGATIVE (NEGATIVE); URINE BLOOD NEGATIVE (NEGATIVE); URINE CLARITY Clear (Clear); URINE COLOR Amber (YELLOW); URINE GLUCOSE (UA) NORMAL (Normal); URINE LEUKOCYTE ESTERASE NEG Leu/uL (Negative); URINE PROTEIN 1+ mg/dL (NEGATIVE)
[2017-08-12 08:07] LABS: B-TYPE NATRIURETIC PEPTIDE 354 pg/mL (0-900)
[2017-08-12 08:10] LABS: EOS # 0.2 K/uL (0.0-0.7); LYMPH # 1.5 K/uL (1.0-4.3); MONO # 1.1 K/uL (0.0-0.8); NEUT # 2.9 K/uL (1.8-7.0)
[2017-08-12 08:23] LABS: BARBITURATES, UR NEGATIVE (NEGATIVE); BENZODIAZEPINES, UR NEGATIVE (NEGATIVE); OPIATES, UR NEGATIVE (NEGATIVE); PHENCYCLIDINE, UR NEGATIVE (NEGATIVE)
--- NOTE | 2017-08-12 08:26 | RAD ---
PROCEDURE: CHEST RADIOGRAPH, 1 VIEW HISTORY: SOB COMPARISON: 04/05/2017. FINDINGS: LUNGS: There are low lung volumes. There is moderate pulmonary venous congestion. PLEURA: No pneumothorax. Question of small pleural effusions. CARDIOVASCULAR: There is persistent moderate cardiomegaly. Status post CABG. There is stable position of left-sided AICD. OSSEOUS STRUCTURES: No significant abnormalities. VISUALIZED UPPER ABDOMEN: Normal. OTHER FINDINGS: None. IMPRESSION: Moderate cardiomegaly and pulmonary venous congestion. Suspect small pleural effusions.
--- NOTE | 2017-08-12 09:10 | CT ---
PROCEDURE: CT HEAD WITHOUT CONTRAST. HISTORY: seizure, ams, found on floor COMPARISON: 11/14/2016. TECHNIQUE: Axial computed tomography images were obtained through the head/brain without intravenous contrast. Radiation dose: Total exam DLP = mGy-cm. This CT exam was performed using one or more of the following dose reduction techniques: Automated exposure control, adjustment of the mA and/or kV according to patient size, and/or use of iterative reconstruction technique. FINDINGS: HEMORRHAGE: No intracranial hemorrhage. BRAIN: Again seen are mild chronic microangiopathic changes. There is redemonstration of focal chronic microangiopathic changes versus old infarction in the right superior frontal white matter. There is no mass, mass effect or abnormal extra-axial fluid collection. VENTRICLES: There is mild age-related global parenchymal volume loss and proportionate enlargement of the ventricles and cortical sulci. CALVARIUM: There is no calvarial fracture or extracranial soft tissue swelling. PARANASAL SINUSES: Predominantly clear. MASTOID AIR CELLS: Predominantly clear. OTHER FINDINGS: None. IMPRESSION: No acute intracranial abnormality. Mild chronic microangiopathic changes and mild age-related global parenchymal volume loss.
--- NOTE | 2017-08-12 11:08 | CP.PCM.HP ---
History of Present Illness - History of Present Illness History of Present Illness: CC; shortness of breath History Of Present Illness pt presents in respiratory distress. Told medics that he has been coughing for about 2 days. Pt has strong alcohol on breath and diffuse tremors. Has been drinking. and is know for alcohol abuse. Speaking in 1-2 word sentences. Denies chest pain Past Patient History - Infectious Disease Hx of Infectious Diseases: None - Tetanus Immunizations Tetanus Immunization: Unknown - Past Medical History & Family History Past Medical History?: Yes - Past Social History Smoking Status: Unknown If Ever Smoked - CARDIAC Hx Atrial Fibrillation: Yes Hx Cardia Arrhythmia: Yes Hx Congestive Heart Failure: Yes Hx Hypercholesterolemia: Yes Hx Hypertension: Yes Hx Pacemaker: Yes - PULMONARY Hx Asthma: Yes Hx Chronic Obstructive Pulmonary Disease (COPD): Yes Hx Pneumonia: Yes - NEUROLOGICAL Hx Seizures: Yes - HEENT Hx HEENT Problems: No - RENAL Hx Chronic Kidney Disease: No - ENDOCRINE/METABOLIC Hx Diabetes Mellitus Type 2: Yes - HEMATOLOGICAL/ONCOLOGICAL Hx Blood Disorders: No - INTEGUMENTARY Hx Dermatological Problems: No - MUSCULOSKELETAL/RHEUMATOLOGICAL Hx Falls: No - GASTROINTESTINAL Hx Gastrointestinal Disorders: No - GENITOURINARY/GYNECOLOGICAL Hx Genitourinary Disorders: No - PSYCHIATRIC Hx Depression: Yes Hx Substance Use: Yes - SURGICAL HISTORY Hx Coronary Artery Bypass Graft: Yes Hx Coronary Stent: Yes (4) - ANESTHESIA Hx Anesthesia: Yes Hx Anesthesia Reactions: No Hx Malignant Hyperthermia: No Meds Allergies/Adverse Reactions: Allergies Allergy/AdvReac Type Severity Reaction Status Date / Time No Known Allergies Allergy Verified 07/17/17 01:32 Results - Vital Signs Recent Vital Signs: Last Vital Signs Temp Pulse 106 H 08/12/17 08:57 Resp 18 08/12/17 08:57 BP 139/74 08/12/17 08:57 Pulse Ox 93 L 08/12/17 08:57 - Labs Result Diagrams: 08/12/17 07:11 08/12/17 07:11 Labs: Laboratory Results - last 24 hr 08/12/17 08/12/17 08/12/17 06:54 07:09 07:11 WBC 5.8 RBC 4.12 L Hgb 12.2 Hct 36.8 MCV 89.1 MCH 29.6 MCHC 33.3 RDW 18.7 H Plt Count 252 MPV 9.3 Neut % (Auto) 51.0 Lymph % (Auto) 25.0 [place] % (Auto) 19.0 H Eos % (Auto) 4.0 Baso % (Auto) 1.0 Neut # (Auto) 2.9 Lymph # (Auto) 1.5 [place] # (Auto) 1.1 H Eos # (Auto) 0.2 Baso # (Auto) 0.0 PT INR APTT pO2 85 H VBG pH 7.39 VBG pCO2 43 VBG HCO3 25.5 VBG Total CO2 27.3 VBG O2 Sat (Calc) 98.1 H VBG Base Excess 0.8 VBG Potassium 3.5 L Sodium 141.0 Chloride 105.0 Glucose 125 H Lactate 1.8 Potassium Carbon Dioxide Anion Gap BUN Creatinine Est GFR ( Amer) Est GFR (Non-Af Amer) POC Glucose (mg/dL) 118 H Random Glucose Calcium Magnesium Total Bilirubin AST ALT Alkaline Phosphatase NT-Pro-B Natriuret Pep Total Protein Albumin Globulin Albumin/Globulin Ratio Venous Blood Potassium 3.5 L Urine Color Urine Clarity Urine pH Ur Specific [place] Urine Protein Urine Glucose (UA) Urine Ketones Urine Blood Urine Nitrate Urine Bilirubin Urine Urobilinogen Ur Leukocyte Esterase Urine WBC (Auto) Urine RBC (Auto) Ur Squamous Epith Cells Urine Opiates Screen Urine Methadone Screen Ur Barbiturates Screen Ur Phencyclidine Scrn Ur Amphetamines Screen U Benzodiazepines Scrn U Oth Cocaine Metabols U Cannabinoids Screen Alcohol, Quantitative 08/12/17 08/12/17 08/12/17 07:11 07:11 07:51 WBC RBC Hgb Hct MCV MCH MCHC RDW Plt Count MPV Neut % (Auto) Lymph % (Auto) [place] % (Auto) Eos % (Auto) Baso % (Auto) Neut # (Auto) Lymph # (Auto) [place] # (Auto) Eos # (Auto) Baso # (Auto) PT 10.3 INR 0.9 APTT 30 pO2 VBG pH VBG pCO2 VBG HCO3 VBG Total CO2 VBG O2 Sat (Calc) VBG Base Excess VBG Potassium Sodium 143 Chloride 103 Glucose Lactate Potassium 3.6 Carbon Dioxide 25 Anion Gap 19 BUN 2 L Creatinine 0.6 L Est GFR ( Amer) > 60 Est GFR (Non-Af Amer) > 60 POC Glucose (mg/dL) Random Glucose 127 H Calcium 8.7 Magnesium 1.7 Total Bilirubin 1.4 H AST 273 H D ALT 215 H D Alkaline Phosphatase 397 H D NT-Pro-B Natriuret Pep 354 Total Protein 7.4 Albumin 4.2 Globulin 3.2 Albumin/Globulin Ratio 1.3 Venous Blood Potassium Urine Color [place] Urine Clarity Clear Urine pH 6.0 Ur Specific [place] 1.014 Urine Protein 1+ H Urine Glucose (UA) Normal Urine Ketones Negative Urine Blood Negative Urine Nitrate Negative Urine Bilirubin Negative Urine Urobilinogen 4.0 Ur Leukocyte Esterase Neg Urine WBC (Auto) 1 Urine RBC (Auto) 1 Ur Squamous Epith Cells < 1 Urine Opiates Screen Urine Methadone Screen Ur Barbiturates Screen Ur Phencyclidine Scrn Ur Amphetamines Screen U Benzodiazepines Scrn U Oth Cocaine Metabols U Cannabinoids Screen Alcohol, Quantitative 169 H 08/12/17 07:51 WBC RBC Hgb Hct MCV MCH MCHC RDW Plt Count MPV Neut % (Auto) Lymph % (Auto) [place] % (Auto) Eos % (Auto) Baso % (Auto) Neut # (Auto) Lymph # (Auto) [place] # (Auto) Eos # (Auto) Baso # (Auto) PT INR APTT pO2 VBG pH VBG pCO2 VBG HCO3 VBG Total CO2 VBG O2 Sat (Calc) VBG Base Excess VBG Potassium Sodium Chloride Glucose Lactate Potassium Carbon Dioxide Anion Gap BUN Creatinine Est GFR ( Amer) Est GFR (Non-Af Amer) POC Glucose (mg/dL) Random Glucose Calcium Magnesium Total Bilirubin AST ALT Alkaline Phosphatase NT-Pro-B Natriuret Pep Total Protein Albumin Globulin Albumin/Globulin Ratio Venous Blood Potassium Urine Color Urine Clarity Urine pH Ur Specific [place] Urine Protein Urine Glucose (UA) Urine Ketones Urine Blood Urine Nitrate Urine Bilirubin Urine Urobilinogen Ur Leukocyte Esterase Urine WBC (Auto) Urine RBC (Auto) Ur Squamous Epith Cells Urine Opiates Screen Negative Urine Methadone Screen Negative Ur Barbiturates Screen Negative Ur Phencyclidine Scrn Negative Ur Amphetamines Screen Negative U Benzodiazepines Scrn Negative U Oth Cocaine Metabols Negative U Cannabinoids Screen Positive H Alcohol, Quantitative
[2017-08-12] MEDS: guaiFENesin 600 mg ER Tab PO SCH (19:24)
[2017-08-12] MEDS: Fluticasone-Salmeterol 250-50mcg Diskus INH SCH (19:43)
[2017-08-12] MEDS: Albuterol-Ipratrop 3 mg / 0.5 (3 ml) UD INH SCH (19:44)
[2017-08-12] MEDS: (Novolog) Insulin Aspart, Recombinant 100 u/ml 10 ml vial SC SCH (21:22)
[2017-08-12] MEDS: MethylPREDNISolone 40 mg Vial IV SCH (21:42)
[2017-08-13] MEDS: Albuterol-Ipratrop 3 mg / 0.5 (3 ml) UD INH SCH ×3 (02:24→13:46)
[2017-08-13] MEDS: (Novolog) Insulin Aspart, Recombinant 100 u/ml 10 ml vial SC SCH ×4 (07:30→21:59)
[2017-08-13] MEDS: Fluticasone-Salmeterol 250-50mcg Diskus INH SCH ×2 (07:44→19:37)
[2017-08-13] MEDS: guaiFENesin 600 mg ER Tab PO SCH ×2 (09:19→17:22)
[2017-08-13] MEDS: MethylPREDNISolone 40 mg Vial IV SCH ×2 (09:26→17:23)
[2017-08-13] MEDS: Albuterol 0.083% Inhal Sol (2.5 mg/3 mL) UD INH SCH ×2 (16:42→19:37)
[2017-08-13] MEDS: Digoxin 125 mcg (0.125 mg) Tab PO SCH (17:22)
[2017-08-14] MEDS: Albuterol 0.083% Inhal Sol (2.5 mg/3 mL) UD INH SCH ×6 (00:10→20:55)
[2017-08-14 00:48] VITALS: RESP 20
[2017-08-14] MEDS: MethylPREDNISolone 40 mg Vial IV SCH ×2 (04:21→16:01)
[2017-08-14] MEDS: Fluticasone-Salmeterol 250-50mcg Diskus INH SCH ×2 (08:00→20:55)
[2017-08-14] MEDS: (Novolog) Insulin Aspart, Recombinant 100 u/ml 10 ml vial SC SCH ×4 (08:54→21:49)
[2017-08-14] MEDS: guaiFENesin 600 mg ER Tab PO SCH ×2 (12:28→18:29)
--- NOTE | 2017-08-14 14:04 | PN ---
DATE: 08/14/2017 LOCATION: [facility], bed 6A SUBJECTIVE: This is a 57-year-old male seen initially for GI consultation on 08/13/2017. Reexamined again today without reported significant clinical changes with the complaint of lower back pain with intermittent period of postprandial abdominal distention. The entire chart is reviewed including but not limited to the most recent lab and radiology study results, current and previous medication list. Today's lab results showed blood glucose level of 154. Rest of his lab results are still pending but with persistent elevation of AST and ALT with reported hepatitis C antibody reactive. PHYSICAL EXAMINATION: GENERAL: A 57-year-old male. VITAL SIGNS: Afebrile with pulse of 82, respiratory rate 20 to 22, blood pressure of 124/84. HEENT: Showed pale, dry oral mucous membranes. Nonicteric sclerae. LUNGS: A few scattered crepitation. Decreased air entry at bases. HEART: Positive S1 and S2. ABDOMEN: Soft. Bowel sounds with mild generalized tenderness. No mass or organomegaly. No rebound tenderness or guarding. EXTREMITIES: Without significant clubbing, cyanosis, or edema. NEUROLOGIC: No reported new neurological deficits, sensory or motor. It has to be mentioned that the patient still has intermittent periods of mild shortness of breath. IMPRESSION: 1. Reexacerbation of chronic obstructive pulmonary disease. 2. Hepatitis C viral infection. 3. Known history of hypertension, hyperlipidemia, seizure disorder, pneumonia. 4. syndrome. 5. Atrial fibrillation by history. 6. History of depression. 7. Status post coronary artery stent insertion, coronary artery bypass graft, and pacemaker insertion by history. SUGGESTION: 1. Agree with your plan. 2. Abdominal ultrasound. 3. Guaiac of the stool daily x3. 4. Due to the patient's clinical condition, routine cancer markers to be ordered. 5. No aggressive GI workup in the meantime until the patient is more stable clinically. Mohinder De La O MD
[2017-08-14] MEDS: Digoxin 125 mcg (0.125 mg) Tab PO SCH (18:29)
--- NOTE | 2017-08-14 22:58 | CP.PCM.PN ---
Subjective - Date & Time of Evaluation Date of Evaluation: 08/13/17 Time of Evaluation: 18:35 - Subjective Subjective: Pt seen and examined at bedside Objective - Vital Signs/Intake and Output Vital Signs (last 24 hours): Temp Pulse Resp BP Pulse Ox 97.4 F L 85 20 136/79 99 08/14/17 15:29 08/14/17 15:29 08/14/17 15:29 08/14/17 21:47 08/14/17 15:29 Intake and Output: 08/14/17 08/15/17 18:59 06:59 Intake Total 870 620 Balance 870 620 - Medications Medications: Current Medications Acetaminophen (Tylenol 325mg Tab) 650 mg PO Q6H PRN PRN Reason: Pain, moderate (4-7) Last Admin: 08/13/17 20:27 Dose: 650 mg Albuterol Sulfate (Albuterol 0.083% Inhal Hedy (2.5 Mg/3 Ml) Ud) 2.5 mg INH Q4H [facility] Last Admin: 08/14/17 20:55 Dose: 2.5 mg Apixaban (Eliquis) 5 mg PO Q12H [facility] Last Admin: 08/14/17 19:09 Dose: 5 mg Aspirin (Ecotrin) 81 mg PO DAILY [facility] Last Admin: 08/14/17 12:28 Dose: 81 mg Carvedilol (Coreg) 12.5 mg PO Q12 [facility] Last Admin: 08/14/17 21:47 Dose: 12.5 mg Chlordiazepoxide (Librium) 25 mg PO Q8 PRN PRN Reason: Anxiety Last Admin: 08/13/17 09:19 Dose: 25 mg Digoxin (Digoxin) 0.125 mg PO DAILY@1800 [facility] Last Admin: 08/14/17 18:29 Dose: 0.125 mg Folic Acid (Folic Acid) 1 mg PO DAILY [facility] Last Admin: 08/14/17 12:28 Dose: 1 mg Furosemide (Lasix) 40 mg PO DAILY [facility] Last Admin: 08/14/17 12:28 Dose: 40 mg Gabapentin (Neurontin) 300 mg PO BID [facility] Last Admin: 08/14/17 18:29 Dose: 300 mg Guaifenesin (Mucinex La) 600 mg PO BID [facility] Last Admin: 08/14/17 18:29 Dose: 600 mg Insulin Aspart (Novolog) 0 unit SC ACHS [facility] PRN Reason: Protocol Last Admin: 08/14/17 21:49 Dose: Not Given Levetiracetam (Keppra) 500 mg PO Q12 [facility] Last Admin: 08/14/17 21:48 Dose: 500 mg Methylprednisolone (Solu-Medrol) 40 mg IV Q12H [facility] Last Admin: 08/14/17 16:01 Dose: 40 mg Montelukast Sodium (Singulair) 5 mg PO HS [facility] Last Admin: 08/14/17 21:49 Dose: 5 mg Rosuvastatin Calcium (Crestor) 10 mg PO HS [facility] Last Admin: 08/14/17 21:48 Dose: 10 mg Fluticasone/Salmeterol (Advair Diskus 250/50) 1 puff INH RQ12 [facility] Last Admin: 08/14/17 20:55 Dose: 1 puff Tamsulosin HCl (Flomax) 0.4 mg PO DAILY [facility] Last Admin: 08/14/17 12:27 Dose: 0.4 mg Thiamine HCl (Vitamin B1 Tab) 100 mg PO DAILY [facility] Last Admin: 08/14/17 12:27 Dose: 100 mg - Labs Labs: 08/12/17 07:11 08/12/17 07:11 PT 10.3 SECONDS (9.7-12.2) 08/12/17 07:11 INR 0.9 08/12/17 07:11 APTT 30 SECONDS (21-34) 08/12/17 07:11
--- NOTE | 2017-08-14 23:01 | CP.PCM.PN ---
Subjective - Date & Time of Evaluation Date of Evaluation: 08/14/17 Time of Evaluation: 18:00 - Subjective Subjective: Pt seen and examined Objective - Vital Signs/Intake and Output Vital Signs (last 24 hours): Temp Pulse Resp BP Pulse Ox 97.4 F L 85 20 136/79 99 08/14/17 15:29 08/14/17 15:29 08/14/17 15:29 08/14/17 21:47 08/14/17 15:29 Intake and Output: 08/14/17 08/15/17 18:59 06:59 Intake Total 870 620 Balance 870 620 - Medications Medications: Current Medications Acetaminophen (Tylenol 325mg Tab) 650 mg PO Q6H PRN PRN Reason: Pain, moderate (4-7) Last Admin: 08/13/17 20:27 Dose: 650 mg Albuterol Sulfate (Albuterol 0.083% Inhal Hedy (2.5 Mg/3 Ml) Ud) 2.5 mg INH Q4H [facility] Last Admin: 08/14/17 20:55 Dose: 2.5 mg Apixaban (Eliquis) 5 mg PO Q12H [facility] Last Admin: 08/14/17 19:09 Dose: 5 mg Aspirin (Ecotrin) 81 mg PO DAILY [facility] Last Admin: 08/14/17 12:28 Dose: 81 mg Carvedilol (Coreg) 12.5 mg PO Q12 [facility] Last Admin: 08/14/17 21:47 Dose: 12.5 mg Chlordiazepoxide (Librium) 25 mg PO Q8 PRN PRN Reason: Anxiety Last Admin: 08/13/17 09:19 Dose: 25 mg Digoxin (Digoxin) 0.125 mg PO DAILY@1800 [facility] Last Admin: 08/14/17 18:29 Dose: 0.125 mg Folic Acid (Folic Acid) 1 mg PO DAILY [facility] Last Admin: 08/14/17 12:28 Dose: 1 mg Furosemide (Lasix) 40 mg PO DAILY [facility] Last Admin: 08/14/17 12:28 Dose: 40 mg Gabapentin (Neurontin) 300 mg PO BID [facility] Last Admin: 08/14/17 18:29 Dose: 300 mg Guaifenesin (Mucinex La) 600 mg PO BID [facility] Last Admin: 08/14/17 18:29 Dose: 600 mg Insulin Aspart (Novolog) 0 unit SC ACHS [facility] PRN Reason: Protocol Last Admin: 08/14/17 21:49 Dose: Not Given Levetiracetam (Keppra) 500 mg PO Q12 [facility] Last Admin: 08/14/17 21:48 Dose: 500 mg Methylprednisolone (Solu-Medrol) 40 mg IV Q12H [facility] Last Admin: 08/14/17 16:01 Dose: 40 mg Montelukast Sodium (Singulair) 5 mg PO HS [facility] Last Admin: 08/14/17 21:49 Dose: 5 mg Rosuvastatin Calcium (Crestor) 10 mg PO HS [facility] Last Admin: 08/14/17 21:48 Dose: 10 mg Fluticasone/Salmeterol (Advair Diskus 250/50) 1 puff INH RQ12 [facility] Last Admin: 08/14/17 20:55 Dose: 1 puff Tamsulosin HCl (Flomax) 0.4 mg PO DAILY [facility] Last Admin: 08/14/17 12:27 Dose: 0.4 mg Thiamine HCl (Vitamin B1 Tab) 100 mg PO DAILY [facility] Last Admin: 08/14/17 12:27 Dose: 100 mg - Labs Labs: 08/12/17 07:11 08/12/17 07:11 PT 10.3 SECONDS (9.7-12.2) 08/12/17 07:11 INR 0.9 08/12/17 07:11 APTT 30 SECONDS (21-34) 08/12/17 07:11
[2017-08-15] MEDS: Albuterol 0.083% Inhal Sol (2.5 mg/3 mL) UD INH SCH ×6 (02:44→19:51)
[2017-08-15] MEDS: MethylPREDNISolone 40 mg Vial IV SCH ×2 (04:47→21:25)
[2017-08-15] MEDS: (Novolog) Insulin Aspart, Recombinant 100 u/ml 10 ml vial SC SCH ×4 (07:56→21:26)
[2017-08-15] MEDS: Fluticasone-Salmeterol 250-50mcg Diskus INH SCH ×2 (08:12→19:51)
--- NOTE | 2017-08-15 09:16 | CON ---
DATE: 08/13/2017 HISTORY OF PRESENT ILLNESS: This 57-year-old male, a smoker with a past history of coronary artery disease, coronary artery bypass graft surgery, atrial fibrillation, placement of the pacemaker in the left chest, hypercholesterolemia, diabetes mellitus, hypertensive cardiovascular disease, and COPD as well as depression and overuse of alcohol. He was now admitted via the emergency room with a two-day history of increasing shortness of breath, weakness, cough, and chest discomfort. When he came to the emergency room, he was noticed to have decreased tremors and drowsiness and it was reported that he was drinking on that day. He complains of cough with scanty mucoid sputum with no hemoptysis. There has been no history of fever, chills, or seizures. SOCIAL HISTORY: He is a smoker, smokes less than half a pack a day. Alcohol quite frequent as reported. ALLERGIES: THERE IS NO REPORTED ALLERGIES. PAST MEDICAL HISTORY: As reported, hypertension, hypotensive cardiovascular disease, coronary artery disease, CABG, pacemaker insertion, COPD, hypercholesterolemia, and atrial fibrillation. FAMILY HISTORY: Reported unremarkable. PHYSICAL EXAMINATION: GENERAL: Now, he is alert and oriented. VITAL SIGNS: Afebrile with a blood pressure of 120/70, pulse 83, respirations 20, hemoglobin oxygen saturation of 99% reported on room air. NECK: Supple. There is no lymphadenopathy. No thyromegaly. HEART: Regular. There is a sternal scar of previous chest surgery, and there is a pacemaker in the left anterior chest wall. There is no gallop rhythm. LUNGS: Diminished breath sounds over the lung bases and have rhonchi and wheeze bilaterally. ABDOMEN: Soft. LEGS: No edema. Deep tendon reflexes sluggish. There is no focal motor deficit; however, there is general weakness. LABORATORY DATA: White count 5800, hemoglobin 12.2, platelet count 252,000, eosinophils 4%, neutrophils 51, lymph . ABG was reported show pH of 7.39, pCO2 of 43, and pO2 of 85 with hemoglobin oxygen saturation of 98%. Sodium is 141, potassium 3.5, chloride 105, glucose 125, lactate 1.8, BUN 2, creatinine 0.6, calcium 8.7. Bilirubin 1.4, AST 273, ALT 215, alkaline phosphatase of 397. ProBNP is 354. Serum albumin 4 and total protein 7.4. Urine shows 1+ protein, urine urobilinogen 4, leukocyte esterase is negative. Toxicology screen is positive for cannabinoids and alcohol. His hepatitic C antibody is reactive. Chest x-ray shows cardiomegaly and pulmonary venous congestive changes with congestive heart failure and minimal raise in pleural fluid, more on the left side than on the right, and poor inspiratory supine film. IMPRESSION: Respiratory insufficiency, exacerbation of chronic obstructive pulmonary disease, congestive heart failure, hypertensive cardiovascular disease, coronary artery disease, cardiac arrhythmias, depression, diabetes mellitus, and exacerbation of chronic obstructive pulmonary disease as stated. RECOMMENDATIONS: Please continue the current medications. I agree with the plan. Continue new medications along with bronchodilators, vasodilators, antiarrhythmics, and anticoagulants which the patient has been on before coming to the hospital. Medications, low dose of steroids and digoxin as prescribed. Folate, B12, B complex, and Librium and diabetic control. Jose Manuel Augustine MD
[2017-08-15] MEDS: guaiFENesin 600 mg ER Tab PO SCH ×2 (09:24→17:13)
[2017-08-15 14:02] LABS: BASO # 0.1 K/uL (0.0-0.2); BASO % 0.5 % (0.0-2.0); HEMOGLOBIN 13.3 g/dL (12.0-18.0); LYMPH # 3.5 K/uL (1.0-4.3); LYMPH % 17.6 % (20.0-40.0); MEAN CORPUSCULAR HEMOGLOBIN 29.4 pg (27.0-31.0); MEAN CORPUSCULAR HGB CONC 32.2 g/dL (33.0-37.0); MEAN PLATELET VOLUME 10.3 fL (7.2-11.7); MONO # 0.8 K/uL (0.0-0.8); MONO % 4.2 % (0.0-10.0); NEUT # 15.5 K/uL (1.8-7.0); NEUT % 77.7 % (50.0-75.0); NRBC % 0.1 % (0.0-2.0); RBC 4.5 Mil/uL (4.40-5.90); RED CELL DISTRIBUTION WIDTH 17.7 % (11.5-14.5)
[2017-08-15 14:04] LABS: MEAN CELL VOLUME 91.4 fL (80.0-94.0); WHITE BLOOD COUNT 19.9 K/uL (4.8-10.8)
[2017-08-15 15:14] LABS: ALB/GLOB RATIO 1.2 (1.0-2.1); ALBUMIN 4.1 g/dL (3.5-5.0); ALT/SGPT 229 U/L (21-72); AST/SGOT 192 U/L (17-59); BLOOD UREA NITROGEN 24 mg/dL (9-20); CALCIUM 9.6 mg/dl (8.6-10.4); GFR AFRICAN-AMERICAN > 60; GFR NON-AFRICAN AMERICAN > 60
[2017-08-15] MEDS: Digoxin 125 mcg (0.125 mg) Tab PO SCH (17:13)
[2017-08-16] MEDS: Albuterol 0.083% Inhal Sol (2.5 mg/3 mL) UD INH SCH ×6 (00:20→20:38)
[2017-08-16] MEDS: MethylPREDNISolone 40 mg Vial IV SCH (04:55)
--- NOTE | 2017-08-16 05:57 | CP.PCM.PN ---
Subjective - Date & Time of Evaluation Date of Evaluation: 08/15/17 Time of Evaluation: 20:00 - Subjective Subjective: Pt seen and examined at bedside Objective - Vital Signs/Intake and Output Vital Signs (last 24 hours): Temp Pulse Resp BP Pulse Ox 97.9 F 84 20 112/72 97 08/16/17 00:00 08/16/17 00:00 08/16/17 00:00 08/16/17 00:00 08/16/17 00:00 Intake and Output: 08/15/17 08/16/17 18:59 06:59 Intake Total 500 300 Output Total 500 Balance 500 -200 - Medications Medications: Current Medications Acetaminophen (Tylenol 325mg Tab) 650 mg PO Q6H PRN PRN Reason: Pain, moderate (4-7) Last Admin: 08/13/17 20:27 Dose: 650 mg Albuterol Sulfate (Albuterol 0.083% Inhal Hedy (2.5 Mg/3 Ml) Ud) 2.5 mg INH Q4H [facility] Last Admin: 08/16/17 03:15 Dose: Not Given Apixaban (Eliquis) 5 mg PO Q12H [facility] Last Admin: 08/15/17 21:19 Dose: 5 mg Aspirin (Ecotrin) 81 mg PO DAILY [facility] Last Admin: 08/15/17 09:17 Dose: 81 mg Carvedilol (Coreg) 12.5 mg PO Q12 [facility] Last Admin: 08/15/17 21:19 Dose: 12.5 mg Chlordiazepoxide (Librium) 25 mg PO Q8 PRN PRN Reason: Anxiety Last Admin: 08/13/17 09:19 Dose: 25 mg Digoxin (Digoxin) 0.125 mg PO DAILY@1800 [facility] Last Admin: 08/15/17 17:13 Dose: 0.125 mg Folic Acid (Folic Acid) 1 mg PO DAILY [facility] Last Admin: 08/15/17 09:18 Dose: 1 mg Furosemide (Lasix) 40 mg PO DAILY [facility] Last Admin: 08/15/17 09:19 Dose: 40 mg Gabapentin (Neurontin) 300 mg PO BID [facility] Last Admin: 08/15/17 17:13 Dose: 300 mg Guaifenesin (Mucinex La) 600 mg PO BID [facility] Last Admin: 08/15/17 17:13 Dose: 600 mg Insulin Aspart (Novolog) 0 unit SC ACHS [facility] PRN Reason: Protocol Last Admin: 08/15/17 21:26 Dose: Not Given Levetiracetam (Keppra) 500 mg PO Q12 [facility] Last Admin: 08/15/17 21:19 Dose: 500 mg Methylprednisolone (Solu-Medrol) 40 mg IV Q12H [facility] Last Admin: 08/16/17 04:55 Dose: 40 mg Montelukast Sodium (Singulair) 5 mg PO HS [facility] Last Admin: 08/15/17 21:30 Dose: 5 mg Rosuvastatin Calcium (Crestor) 10 mg PO HS [facility] Last Admin: 08/15/17 21:20 Dose: 10 mg Fluticasone/Salmeterol (Advair Diskus 250/50) 1 puff INH RQ12 [facility] Last Admin: 08/15/17 19:51 Dose: Not Given Tamsulosin HCl (Flomax) 0.4 mg PO DAILY [facility] Last Admin: 08/15/17 09:18 Dose: 0.4 mg Thiamine HCl (Vitamin B1 Tab) 100 mg PO DAILY [facility] Last Admin: 08/15/17 09:17 Dose: 100 mg - Labs Labs: 08/15/17 13:57 08/15/17 13:57 PT 10.3 SECONDS (9.7-12.2) 08/12/17 07:11 INR 0.9 08/12/17 07:11 APTT 30 SECONDS (21-34) 08/12/17 07:11
[2017-08-16] MEDS: (Novolog) Insulin Aspart, Recombinant 100 u/ml 10 ml vial SC SCH ×4 (08:26→22:37)
[2017-08-16] MEDS: guaiFENesin 600 mg ER Tab PO SCH ×2 (10:46→17:32)
[2017-08-16] MEDS: Fluticasone-Salmeterol 250-50mcg Diskus INH SCH ×2 (11:07→20:38)
--- NOTE | 2017-08-16 12:10 | CARD ---
APPROVED REPORT EKG Measurement Heart [id number] DC [id number] <Conclusion> Sinus tachycardia with fusion complexes ST & T wave abnormality, consider inferior ischemia Abnormal ECG
[2017-08-16] MEDS ORDERED: MethylPREDNISolone 40 mg Vial IV SCH (16:00)
[2017-08-16] MEDS: Digoxin 125 mcg (0.125 mg) Tab PO SCH (17:33)
[2017-08-16 17:36] VITALS: PULSE 126
--- NOTE | 2017-08-16 22:02 | CP.PCM.PN ---
Subjective - Date & Time of Evaluation Date of Evaluation: 08/16/17 Time of Evaluation: 19:40 - Subjective Subjective: pt seen and examined, less tacycardic , less anxious, less wheezing, on taper steroids, librium Objective - Vital Signs/Intake and Output Vital Signs (last 24 hours): Temp Pulse Resp BP Pulse Ox 97.5 F L 85 20 120/70 100 08/16/17 15:30 08/16/17 15:30 08/16/17 15:30 08/16/17 21:24 08/16/17 15:30 Intake and Output: 08/16/17 08/17/17 18:59 06:59 Intake Total 350 Balance 350 - Medications Medications: Current Medications Acetaminophen (Tylenol 325mg Tab) 650 mg PO Q6H PRN PRN Reason: Pain, moderate (4-7) Last Admin: 08/13/17 20:27 Dose: 650 mg Albuterol Sulfate (Albuterol 0.083% Inhal Hedy (2.5 Mg/3 Ml) Ud) 2.5 mg INH Q4H [facility] Last Admin: 08/16/17 20:38 Dose: 2.5 mg Apixaban (Eliquis) 5 mg PO Q12H [facility] Last Admin: 08/16/17 19:15 Dose: 5 mg Aspirin (Ecotrin) 81 mg PO DAILY [facility] Last Admin: 08/16/17 10:46 Dose: 81 mg Carvedilol (Coreg) 12.5 mg PO Q12 [facility] Last Admin: 08/16/17 21:24 Dose: 12.5 mg Chlordiazepoxide (Librium) 25 mg PO Q8 PRN PRN Reason: Anxiety Last Admin: 08/13/17 09:19 Dose: 25 mg Digoxin (Digoxin) 0.125 mg PO DAILY@1800 [facility] Last Admin: 08/16/17 17:33 Dose: 0.125 mg Folic Acid (Folic Acid) 1 mg PO DAILY [facility] Last Admin: 08/16/17 10:46 Dose: 1 mg Furosemide (Lasix) 40 mg PO DAILY [facility] Last Admin: 08/16/17 10:47 Dose: 40 mg Gabapentin (Neurontin) 300 mg PO BID [facility] Last Admin: 08/16/17 17:33 Dose: 300 mg Guaifenesin (Mucinex La) 600 mg PO BID [facility] Last Admin: 08/16/17 17:32 Dose: 600 mg Insulin Aspart (Novolog) 0 unit SC ACHS [facility] PRN Reason: Protocol Last Admin: 08/16/17 17:32 Dose: 4 unit Levetiracetam (Keppra) 500 mg PO Q12 [facility] Last Admin: 08/16/17 21:25 Dose: 500 mg Methylprednisolone (Solu-Medrol) 20 mg IV Q12H [facility] Last Admin: 08/16/17 16:16 Dose: 20 mg Montelukast Sodium (Singulair) 5 mg PO HS [facility] Last Admin: 08/15/17 21:30 Dose: 5 mg Rosuvastatin Calcium (Crestor) 10 mg PO HS [facility] Last Admin: 08/16/17 21:24 Dose: 10 mg Fluticasone/Salmeterol (Advair Diskus 250/50) 1 puff INH RQ12 [facility] Last Admin: 08/16/17 20:38 Dose: 1 puff Tamsulosin HCl (Flomax) 0.4 mg PO DAILY [facility] Last Admin: 08/16/17 10:46 Dose: 0.4 mg Thiamine HCl (Vitamin B1 Tab) 100 mg PO DAILY [facility] Last Admin: 08/16/17 10:46 Dose: 100 mg - Labs Labs: 08/15/17 13:57 08/15/17 13:57 PT 10.3 SECONDS (9.7-12.2) 08/12/17 07:11 INR 0.9 08/12/17 07:11 APTT 30 SECONDS (21-34) 08/12/17 07:11 - Constitutional Appears: Younger Than Stated Age - Head Exam Head Exam: ATRAUMATIC, NORMAL INSPECTION, NORMOCEPHALIC - Eye Exam Eye Exam: EOMI, Normal appearance, PERRL Pupil Exam: NORMAL ACCOMODATION, PERRL - Cardiovascular Exam Cardiovascular Exam: Tachycardia - GI/Abdominal Exam GI & Abdominal Exam: Soft, Normal Bowel Sounds. absent: Tenderness Assessment and Plan (1) Alcohol withdrawal Status: Acute
[2017-08-16] MEDS ORDERED: Oxycodone/Acetaminophen 5/325 mg Tab PO PRN (22:12)
[2017-08-17] MEDS: Albuterol 0.083% Inhal Sol (2.5 mg/3 mL) UD INH SCH ×4 (00:15→11:54)
[2017-08-17 08:11] VITALS: BP 117/81; PULSE 81; TEMP 97.5; O2SAT 98
--- NOTE | 2017-08-17 08:19 | PN ---
DATE: 08/16/2017 PHYSICAL EXAMINATION: GENERAL: The patient is alert, oriented, sitting in the chair. VITAL SIGNS: He is afebrile with blood pressure 122/80, hemoglobin oxygen saturation of 96% on room air, respiration is 20. GENERAL: He is not in acute distress, but he complains of some shortness of breath on walking. He is on Lasix for CHF and he is on bronchodilators for his COPD. HEART: Regular. There is no gallop rhythm. LUNGS: Diminished breath sounds over the bases are noticeable. ABDOMEN: Soft. EXTREMITIES: Legs, no edema. LABORATORY DATA: His white count is 19,900, hemoglobin 13.3, platelet count 248,000. Serum sodium is 134, potassium 4.2, chloride 96, BUN 24, creatinine 0.9, carbon dioxide 25. His blood sugar is 314. IMPRESSION AND PLAN: Respiratory insufficiency, cardiac arrhythmia, hypertensive cardiovascular disease, coronary artery disease, congestive heart failure, chronic obstructive pulmonary disease, and arthritis. He has a pacemaker in the left anterior chest. He is having medication for diabetes mellitus. We will cut his steroids down. I reduced his Solu-Medrol from 40 twice a day to 20 twice a day and then we will further taper down subsequently. Jose Manuel Augustine MD
[2017-08-17] MEDS: (Novolog) Insulin Aspart, Recombinant 100 u/ml 10 ml vial SC SCH ×2 (08:20→12:09)
[2017-08-17] MEDS: Fluticasone-Salmeterol 250-50mcg Diskus INH SCH (08:42)
[2017-08-17] MEDS: guaiFENesin 600 mg ER Tab PO SCH (10:59)
--- NOTE | 2017-08-17 16:07 | CP.PCM.DIS ---
Provider - Provider Date of Admission: 08/12/17 10:08 Attending physician: Lonny Kingston MD Time Spent in preparation of Discharge (in minutes): 46 Diagnosis - Discharge Diagnosis (1) Alcohol withdrawal Status: Acute (2) COPD exacerbation Status: Acute (3) Delirium Status: Acute Hospital Course - Lab Results Lab Results: Most Recent Lab Values WBC 19.9 K/uL (4.8-10.8) H D 08/15/17 13:57 RBC 4.50 Mil/uL (4.40-5.90) 08/15/17 13:57 Hgb 13.3 g/dL (12.0-18.0) 08/15/17 13:57 Hct 41.2 % (35.0-51.0) 08/15/17 13:57 MCV 91.4 fL (80.0-94.0) D 08/15/17 13:57 MCH 29.4 pg (27.0-31.0) 08/15/17 13:57 MCHC 32.2 g/dL (33.0-37.0) L 08/15/17 13:57 RDW 17.7 % (11.5-14.5) H 08/15/17 13:57 Plt Count 248 K/uL (130-400) 08/15/17 13:57 MPV 10.3 fL (7.2-11.7) 08/15/17 13:57 Neut % (Auto) 77.7 % (50.0-75.0) H 08/15/17 13:57 Lymph % (Auto) 17.6 % (20.0-40.0) L 08/15/17 13:57 [place] % (Auto) 4.2 % (0.0-10.0) 08/15/17 13:57 Eos % (Auto) 0.0 % (0.0-4.0) 08/15/17 13:57 Baso % (Auto) 0.5 % (0.0-2.0) 08/15/17 13:57 Neut # (Auto) 15.5 K/uL (1.8-7.0) H 08/15/17 13:57 Lymph # (Auto) 3.5 K/uL (1.0-4.3) 08/15/17 13:57 [place] # (Auto) 0.8 K/uL (0.0-0.8) 08/15/17 13:57 Eos # (Auto) 0.0 K/uL (0.0-0.7) 08/15/17 13:57 Baso # (Auto) 0.1 K/uL (0.0-0.2) 08/15/17 13:57 PT 10.3 SECONDS (9.7-12.2) 08/12/17 07:11 INR 0.9 08/12/17 07:11 APTT 30 SECONDS (21-34) 08/12/17 07:11 pO2 85 mm/Hg (30-55) H 08/12/17 07:09 VBG pH 7.39 (7.32-7.43) 08/12/17 07:09 VBG pCO2 43 mmHg (40-60) 08/12/17 07:09 VBG HCO3 25.5 mmol/L 08/12/17 07:09 VBG Total CO2 27.3 mmol/L (22-28) 08/12/17 07:09 VBG O2 Sat (Calc) 98.1 % (40-65) H 08/12/17 07:09 VBG Base Excess 0.8 mmol/L (0.0-2.0) 08/12/17 07:09 VBG Potassium 3.5 mmol/L (3.6-5.2) L 08/12/17 07:09 Sodium 141.0 mmol/l (132-148) 08/12/17 07:09 Chloride 105.0 mmol/L (98-107) 08/12/17 07:09 Glucose 125 mg/dl (75-110) H 08/12/17 07:09 Lactate 1.8 mmol/L (0.7-2.1) 08/12/17 07:09 Sodium 134 mmol/L (132-148) 08/15/17 13:57 Potassium 4.2 mmol/L (3.6-5.2) 08/15/17 13:57 Chloride 96 mmol/L (98-107) L 08/15/17 13:57 Carbon Dioxide 25 mmol/L (22-30) 08/15/17 13:57 Anion Gap 17 (10-20) 08/15/17 13:57 BUN 24 mg/dL (9-20) H 08/15/17 13:57 Creatinine 0.9 mg/dL (0.8-1.5) 08/15/17 13:57 Est GFR ( Amer) > 60 08/15/17 13:57 Est GFR (Non-Af Amer) > 60 08/15/17 13:57 POC Glucose (mg/dL) 131 mg/dL (65-110) H 08/17/17 11:02 Random Glucose 310 mg/dL (75-110) H 08/15/17 13:57 Calcium 9.6 mg/dl (8.6-10.4) 08/15/17 13:57 Magnesium 1.7 mg/dL (1.6-2.3) 08/12/17 07:11 Total Bilirubin 1.2 mg/dL (0.2-1.3) 08/15/17 13:57 AST 192 U/L (17-59) H D 08/15/17 13:57 ALT 229 U/L (21-72) H 08/15/17 13:57 Alkaline Phosphatase 309 U/L (38-126) H D 08/15/17 13:57 NT-Pro-B Natriuret Pep 354 pg/mL (0-900) 08/12/17 07:11 Total Protein 7.4 g/dL (6.3-8.3) 08/15/17 13:57 Albumin 4.1 g/dL (3.5-5.0) 08/15/17 13:57 Globulin 3.3 gm/dL (2.2-3.9) 08/15/17 13:57 Albumin/Globulin Ratio 1.2 (1.0-2.1) 08/15/17 13:57 Alpha Fetoprotein 2.4 ng/mL (0.0-7.5) 08/14/17 11:16 Carcinoembryonic Ag 12.7 ng/mL (0-3.0) H 08/14/17 11:16 Venous Blood Potassium 3.5 mmol/L (3.6-5.2) L 08/12/17 07:09 Urine Color Yomaira (YELLOW) 08/12/17 07:51 Urine Clarity Clear (Clear) 08/12/17 07:51 Urine pH 6.0 (5.0-8.0) 08/12/17 07:51 Ur Specific [place] 1.014 (1.003-1.030) 08/12/17 07:51 Urine Protein 1+ mg/dL (NEGATIVE) H 08/12/17 07:51 Urine Glucose (UA) Normal mg/dL (Normal) 08/12/17 07:51 Urine Ketones Negative mg/dL (NEGATIVE) 08/12/17 07:51 Urine Blood Negative (NEGATIVE) 08/12/17 07:51 Urine Nitrate Negative (NEGATIVE) 08/12/17 07:51 Urine Bilirubin Negative (NEGATIVE) 08/12/17 07:51 Urine Urobilinogen 4.0 mg/dL (0.2-1.0) 08/12/17 07:51 Ur Leukocyte Esterase Neg Jesu/uL (Negative) 08/12/17 07:51 Urine WBC (Auto) 1 /hpf (0-5) 08/12/17 07:51 Urine RBC (Auto) 1 /hpf (0-3) 08/12/17 07:51 Ur Squamous Epith Cells < 1 /hpf (0-5) 08/12/17 07:51 Urine Opiates Screen Negative (NEGATIVE) 08/12/17 07:51 Urine Methadone Screen Negative (NEGATIVE) 08/12/17 07:51 Ur Barbiturates Screen Negative (NEGATIVE) 08/12/17 07:51 Ur Phencyclidine Scrn Negative (NEGATIVE) 08/12/17 07:51 Ur Amphetamines Screen Negative (NEGATIVE) 08/12/17 07:51 U Benzodiazepines Scrn Negative (NEGATIVE) 08/12/17 07:51 U Oth Cocaine Metabols Negative (NEGATIVE) 08/12/17 07:51 U Cannabinoids Screen Positive (NEGATIVE) H 08/12/17 07:51 Alcohol, Quantitative 169 mg/dl (0-10) H 08/12/17 07:11 Hepatitis C Antibody Reactive (NEGATIVE) 08/12/17 21:59 - Hospital Course Hospital Course: pt seen and examined, less tacycardic , less anxious, less wheezing, on taper steroids, librium pt was discharge less hort of breath Discharge Exam - Head Exam Head Exam: ATRAUMATIC, NORMAL INSPECTION, NORMOCEPHALIC - Eye Exam Eye Exam: EOMI, Normal appearance, PERRL Pupil Exam: NORMAL ACCOMODATION, PERRL - ENT Exam ENT Exam: Mucous Membranes Moist - Cardiovascular Exam Cardiovascular Exam: REGULAR RHYTHM, +S1, +S2 - GI/Abdominal Exam GI & Abdominal Exam: Normal Bowel Sounds - Rectal Exam Rectal Exam: Deferred Discharge Plan - Discharge Medications Prescriptions: predniSONE [Prednisone] 10 mg PO DAILY #10 tab Albuterol HFA [Ventolin HFA 90 mcg/actuation (8 g)] 1 puff IH QID PRN #1 inhaler PRN Reason: Wheezing - Follow Up Plan Condition: GUARDED Disposition: HOME/ ROUTINE Instructions: Asthma, Adult (DC), Heart Failure, Adult (DC), Seizures, Adult ( DC), Effects of Alcohol on Your Health Referrals: Lonny Kingston MD [Staff Provider] -
--- NOTE | 2017-08-17 19:18 | PN ---
DATE: 08/17/2017 PHYSICAL EXAMINATION: GENERAL: The patient is alert, oriented, not in acute distress. VITAL SIGNS: He is afebrile with blood pressure 116/80, respiration 20, hemoglobin oxygen saturation of 98% on room air. HEART: Regular. No gallop rhythm. There is a pacemaker in the left anterior chest wall. LUNGS: Diminished breath sounds over the lung bases. Rhonchi improved. ABDOMEN: Soft. EXTREMITIES: Legs, no edema. LABORATORY DATA: His blood glucose today is 131. IMPRESSION: Respiratory insufficiency, acute exacerbation of chronic obstructive pulmonary disease, hypertensive cardiovascular disease, cardiac arrhythmias, coronary artery disease, congestive heart failure, arthritis, diabetes mellitus, status post cardiac surgery in the past. PLAN: To continue with the current medications including bronchodilators, vasodilators, , anticoagulants, and antidiabetic medications. Follow with PMD. Jose Manuel Augustine MD
== END 2017-08-17 14:59 | disposition home or self-care (01) | DRG 750 ==
LOC: C.ER 06:42 → C.9E 10:08 → C.5S 13:22 → C.3T 08-14 15:18
PROVIDERS: ADMIT Internal Medicine; ATTEND Internal Medicine
PROC: HZ2ZZZZ Detoxification Services for Substance Abuse Treatment (ICD-10-PCS; principal; 2017-08-12)
DX: F10.230 Alcohol dependence with withdrawal, uncomplicated (principal); J44.1 Chronic obstructive pulmonary disease with (acute) exacerbation; B19.20 Unspecified viral hepatitis C without hepatic coma; I11.0 Hypertensive heart disease with heart failure; I50.9 Heart failure, unspecified; J45.901 Unspecified asthma with (acute) exacerbation; E78.00 Pure hypercholesterolemia, unspecified; E11.9 Type 2 diabetes mellitus without complications; Y90.6 Blood alcohol level of 120-199 mg/100 ml; F17.210 Nicotine dependence, cigarettes, uncomplicated; G40.909 Epilepsy, unspecified, not intractable, without status epilepticus; I25.10 Atherosclerotic heart disease of native coronary artery without angina pectoris; I48.91 Unspecified atrial fibrillation; M19.90 Unspecified osteoarthritis, unspecified site; F32.9 Major depressive disorder, single episode, unspecified; Z95.0 Presence of cardiac pacemaker; Z95.1 Presence of aortocoronary bypass graft; Z87.01 Personal history of pneumonia (recurrent)

== ENCOUNTER 2017-08-24 23:24 | Inpatient (IN) | payer OTHER ==
[2017-08-24 23:25] VITALS: PULSE 126; BMI 11.7
[2017-08-24] MEDS ORDERED: Albuterol-Ipratrop 3 mg / 0.5 (3 ml) UD ONE ×2 (23:35→23:51)
--- NOTE | 2017-08-24 23:35 | C.PDOC ---
History Of Present Illness patient presents short of breath and wheezing after he has been drinking and sniffing cocaine. Speaking in 2-3 word sentences. Denies any chest pain. No f/c/ n/v. Time Seen by Provider: 08/24/17 23:35 Chief Complaint (Nursing): Shortness Of Breath History Per: Patient History/Exam Limitations: no limitations Onset/Duration Of Symptoms: Hrs Current Symptoms Are (Timing): Worse Initiating Event: Other (cocaine use) Exacerbating Factor(s): Exertion, Coughing Current Respiratory Medications: See Home Med List Severity: Severe Pain Scale Rating Of: 7 Associated Symptoms: denies: Fever, Chills, Sweating Reports Recently: Seen In ED, Treated By A Physician, Hospitalized Recent travel outside of the [place]: No Additional History Per: Patient Past Medical History Reviewed: Historical Data, Nursing Documentation, Vital Signs Vital Signs: Last Vital Signs Temp 98.0 F 08/24/17 23:29 Pulse 108 H 08/25/17 00:31 Resp 32 H 08/25/17 00:05 BP 132/90 08/25/17 00:05 Pulse Ox 97 08/25/17 00:05 - Medical History PMH: Asthma, Atrial Fibrillation, Back Problems, Cardia Arrhythmia, CHF, COPD, Depression, HTN, Hypercholesterolemia, Pneumonia, Seizures Denies: Chronic Kidney Disease Surgical History: CABG, Coronary Stent (4), Pacemaker - [facility] Procedures ASSISTANCE WITH RESPIRATORY VENTILATION, 24-96 HRS, CPAP (11/06/16) CORONAR ARTERIOGR-2 CATH (06/24/14) CORONARY ARTERY STENT INSERTION [id number] (06/24/14) DETOXIFICATION SERVICES FOR SUBSTANCE ABUSE TREATMENT (08/12/17) INFLUENZA VACCINATION (04/25/14) INSERTION OF ONE VASCULAR STENT (06/24/14) INTRODUCE OF OTH THERAP SUBST INTO RESP TRACT, VIA OPENING (06/19/15) INTRODUCTION OF SERUM/TOX/VACCINE INTO MUSCLE, PERC APPROACH (01/05/16) LEFT HEART CARDIAC CATH (06/24/14) NEBULIZER THERAPY (07/12/14) PERCUTANEOUS TRANSLUMINAL CORONARY ANGIOPLASTY [PTCA] (06/24/14) PROCEDURE ON SINGLE VESSEL (06/24/14) VACCINATION NEC (04/25/14) Family History: States: Diabetes - Social History Hx Tobacco Use: Yes Hx Alcohol Use: No Hx Substance Use: Yes - Immunization History Hx Tetanus Toxoid Vaccination: No Hx Influenza Vaccination: No Hx Pneumococcal Vaccination: No Review Of Systems Constitutional: Negative for: Fever, Chills Eyes: Negative for: Vision Change ENT: Negative for: Throat Pain Cardiovascular: Negative for: Chest Pain Respiratory: Positive for: Cough, Shortness of Breath, SOB with Excertion, Wheezing Gastrointestinal: Negative for: Nausea, Vomiting, Abdominal Pain Genitourinary: Negative for: Dysuria Musculoskeletal: Negative for: Back Pain Skin: Negative for: Rash Neurological: Negative for: Weakness Psych: Negative for: Anxiety Physical Exam - Physical Exam Appears: In Acute Distress Skin: Warm, Dry Head: Normacephalic Eye(s): bilateral: Normal Inspection Nose: Flaring Oral Mucosa: Moist Neck: Supple Chest: Symmetrical, Other (left AICD, cabg scar) Cardiovascular: Rhythm Regular Respiratory: Decreased Breath Sounds, No Rales, No Rhonchi, Wheezing Gastrointestinal/Abdominal: Soft, No Tenderness, No Distention Back: Normal Inspection Extremity: Normal ROM Extremity: Bilateral: Atraumatic Pulses: Left Dorsalis Pedis: Normal, Right Dorsalis Pedis: Normal Neurological/Psych: Oriented x3 Gait: Steady ED Course And Treatment - Laboratory Results Result Diagrams: 08/25/17 00:03 08/25/17 00:03 ECG: Interpreted By Me, Viewed By Me ECG Rhythm: Sinus Rhythm (106), Nonspecific Changes (occ pvc's) O2 Sat by Pulse Oximetry: 97 Pulse Ox Interpretation: Normal - Radiology CXR: Interpreted by Me, Viewed By Me Critical Care Time - Critical Care Note Total Time (in mins): 30 Documented critical care: time excludes all time spent performing seperately billable procedures. Disposition Discussed With : Lonny Kingston Comment: accepted the pt on his service and took over the care at 2 AM Doctor Will See Patient In The: Hospital Counseled Patient/Family Regarding: Studies Performed, Diagnosis - Disposition Disposition: HOSPITALIZED Disposition Time: 23:35 Condition: FAIR Forms: [facility] (Georgian) - POA Present On Arrival: Poor Glycemic Control - Clinical Impression Clinical Impression: Respiratory distress, COPD exacerbation, Chest pain, Cocaine abuse Decision To Admit - Pt Status Changed To: Hospital Disposition Of: Inpatient - Admit Certification Admit to Inpatient:: After my assessment, the patient will require hospitalization for at least two midnights. This is because of the severity of symptoms shown, intensity of services needed, and/or the medical risk in this patient being treated as an outpatient. - InPatient: Physician Admission Certification: I certify that this patient requires 2 or more midnights of care for the following reason:: After my assessment, the patient will require hospitalization for at least two midnights. This is because of the severity of symptoms shown, intensity of services needed, and/or the medical risk in this patient being treated as an outpatient. - . Bed Request Type: Telemetry Admitting Physician: Lonny Kingston Patient Diagnosis: Respiratory distress, COPD exacerbation, Chest pain, Cocaine abuse
[2017-08-24] MEDS ORDERED: Aspirin 325 mg EC Tablets PO STA (23:38)
[2017-08-24] MEDS ORDERED: Aspirin 325 mg EC Tablets PO ONE (23:58)
[2017-08-25] MEDS: Albuterol-Ipratrop 3 mg / 0.5 (3 ml) UD IH SCH ×2 (00:06→00:13)
[2017-08-25] MEDS ORDERED: Albuterol-Ipratrop 3 mg / 0.5 (3 ml) UD ONE (00:15)
[2017-08-25 00:16] LABS: EOS # 0.1 K/uL (0.0-0.7); MEAN PLATELET VOLUME 9.2 fL (7.2-11.7)
[2017-08-25 00:21] LABS: PROTHROMBIN TIME 11.1 SECONDS (9.7-12.2)
[2017-08-25 00:23] LABS: BASO # 0.1 K/uL (0.0-0.2); BASO % 0.7 % (0.0-2.0); EOS % 0.7 % (0.0-4.0); LYMPH # 1.9 K/uL (1.0-4.3); LYMPH % 17.5 % (20.0-40.0); MEAN CELL VOLUME 91.5 fL (80.0-94.0); MEAN CORPUSCULAR HEMOGLOBIN 30.2 pg (27.0-31.0); MONO # 1.1 K/uL (0.0-0.8); MONO % 10.1 % (0.0-10.0); NEUT # 7.8 K/uL (1.8-7.0); NRBC % 0.1 % (0.0-2.0); RBC 3.63 Mil/uL (4.40-5.90); RED CELL DISTRIBUTION WIDTH 18.1 % (11.5-14.5)
[2017-08-25 00:29] LABS: ABG ALLEN TEST POS; ARTERIAL BLOOD GAS HCO3 24.3 mmol/L (21-28); ARTERIAL BLOOD GAS O2 SAT 98.9 % (95-98); ARTERIAL BLOOD GAS PCO2 37 mm/Hg (35-45); ARTERIAL BLOOD GAS PH 7.41 (7.35-7.45); ARTERIAL BLOOD GAS PO2 89 mm/Hg (80-100); ARTERIAL BLOOD GAS TCO2 24.6 mmol/L (22-28)
[2017-08-25 00:49] LABS: ALB/GLOB RATIO 1.2 (1.0-2.1); ALBUMIN 3.8 g/dL (3.5-5.0); ALT/SGPT 379 U/L (21-72); AST/SGOT 442 U/L (17-59); B-TYPE NATRIURETIC PEPTIDE 687 pg/mL (0-900); BLOOD UREA NITROGEN 2 mg/dL (9-20); CALCIUM 8.4 mg/dl (8.6-10.4); GFR AFRICAN-AMERICAN > 60; GFR NON-AFRICAN AMERICAN > 60
[2017-08-25 01:02] LABS: SQUAMOUS EPITHIAL < 1 /hpf (0-5); URINE BILIRUBIN NEGATIVE (NEGATIVE); URINE BLOOD NEGATIVE (NEGATIVE); URINE CLARITY Clear (Clear); URINE COLOR Amber (YELLOW); URINE GLUCOSE (UA) NORMAL (Normal); URINE HYALINE CAST 0-2 /lpf (0-2); URINE LEUKOCYTE ESTERASE NEG Leu/uL (Negative); URINE PROTEIN 1+ mg/dL (NEGATIVE)
[2017-08-25 01:15] LABS: BARBITURATES, UR NEGATIVE (NEGATIVE); OPIATES, UR NEGATIVE (NEGATIVE); PHENCYCLIDINE, UR NEGATIVE (NEGATIVE)
[2017-08-25 02:04] LABS: BENZODIAZEPINES, UR POSITIVE (NEGATIVE)
[2017-08-25] MEDS: Albuterol-Ipratrop 3 mg / 0.5 (3 ml) UD INH SCH ×3 (05:07→11:23)
[2017-08-25 09:18] LABS: CK-MB 1.35 ng/mL (0.0-3.38); TROPONIN I 0.015 ng/mL (0.00-0.120)
[2017-08-25] MEDS ORDERED: Verapamil 2 ML ONE (09:48)
[2017-08-25] MEDS ORDERED: Sodium Chloride 0.9% 1,000 ML IV ONE (09:56)
[2017-08-25] MEDS ORDERED: guaiFENesin 200 mg/10 ml Syrup UD PO PRN (10:00)
[2017-08-25] MEDS ORDERED: Digoxin 125 mcg (0.125 mg) Tab PO SCH ×2 (10:00→18:00)
[2017-08-25] MEDS ORDERED: MethylPREDNISolone 40 mg Vial IVP SCH (10:00)
[2017-08-25] MEDS ORDERED: Home Med 1 UNIT (Atorvastatin [Lipitor] 20 MG) PO SCH (10:00)
[2017-08-25] MEDS ORDERED: Verapamil 180 mg ER Tab PO SCH (10:00)
[2017-08-25] MEDS ORDERED: Home Med 1 UNIT (Fluticasone/Vilanterol [Breo Ellipta 200-25 Mcg Inh] 1 EACH) IH SCH (10:00)
--- NOTE | 2017-08-25 10:36 | RAD ---
PROCEDURE: CHEST RADIOGRAPH, 1 VIEW HISTORY: SOB COMPARISON: Chest radiograph dated 08/12/2017. FINDINGS: LUNGS: Prominence of the pulmonary vasculature may be secondary to AP technique and/or pulmonary vascular congestion. Stable right apical thickening. PLEURA: No pneumothorax or pleural fluid seen. CARDIOVASCULAR: Left subclavian access AICD/ pacemaker redemonstrated. Prior sternotomy with sternal wires and surgical clips redemonstrated. Atherosclerotic aortic calcifications. Cardiomediastinal silhouette stably enlarged. OSSEOUS STRUCTURES: Unchanged. VISUALIZED UPPER ABDOMEN: Normal. OTHER FINDINGS: None. IMPRESSION: Prominence of the pulmonary vasculature may be secondary to AP technique and/or pulmonary vascular congestion. No focal consolidation or pleural effusion. No significant interval change.
[2017-08-25] MEDS ORDERED: Fluticasone-Salmeterol 250-50mcg Diskus INH SCH (12:00)
[2017-08-25 17:44] VITALS: PULSE 83; TEMP 97.7; O2SAT 96
[2017-08-25 18:27] VITALS: BP 112/72; RESP 16
--- NOTE | 2017-08-26 00:08 | CON ---
DATE: 08/25/2017 CARDIOLOGY CONSULTATION REASON FOR CONSULTATION: Exacerbation of congestive heart failure as well as rapid atrial fibrillation. HISTORY OF PRESENT ILLNESS: The patient is a 57 years old male who has a history of coronary artery disease, underwent coronary artery bypass surgery 15 years ago at Hospital, history of ICD placement around two years ago. The patient has a history of cardiac catheterization and coronary intervention in 06/2014 at [facility], which was found on the [facility] database. The patient underwent successful PTCA and stent of critically stenosed right coronary artery, cardiac catheterization revealed 2-vessel coronary artery disease with patent saphenous vein graft to the OM with diffuse disease and 90% stenosis in the distal portion of the anastomosis site of saphenous vein graft to the obtuse marginal branch. The patient presents because of shortness of breath and wheezing. The patient reported chest tightness. SOCIAL HISTORY: The patient is a smoker, cannabinoid and cocaine abuser as well as alcohol abuser. He was intoxicated on admission. REVIEW OF SYSTEMS: No fever or chills. No hematemesis or melena. PHYSICAL EXAMINATION: GENERAL: The patient is a middle-aged male who does not appear to be in acute distress. VITAL SIGNS: Blood pressure 108/64, heart rate 147, temperature 97.5, respirations 20. HEENT: Mild facial edema. CHEST: Left basilar coarse crepitations. HEART: S1, S2 are regular. ABDOMEN: Soft. EXTREMITIES: 2+ pitting edema. IMAGING: Chest x-ray revealed cardiomegaly, [id number] CHF, and ICD lead is noted as well as a sternotomy scar. EKG reveals sinus tachycardia at the rate of [address] nonspecific [address]-T wave changes. Subsequent monitor recording revealed rapid atrial fibrillation, and eventually the patient converted back to sinus rhythm. LABORATORY DATA: Urine drug screen is positive for benzodiazepine, cocaine, cannabinoids with alcohol level of 257. SMA-7: Sodium 139, potassium 3.6, chloride 101, CO2 of 25, glucose 151, BUN 2, creatinine 0.7. AST and ALT are 442 and 379 respectively, alkaline phosphatase 382. Two sets of troponins are negative. PT, PTT and INR are within normal limits. ASSESSMENT: 1. Exacerbation of congestive heart failure. 2. Coronary artery disease, status post coronary artery bypass surgery as well as right coronary artery stenting. 3. Alcohol intoxication. 4. Cocaine and cannabinoid abuse. 5. Paroxysmal atrial fibrillation. RECOMMENDATIONS: Continue current verapamil at 180 mg once a day and discontinue Coreg for now in view of the patient cocaine abuse. Continue digoxin 0.125 mg daily. Cardizem infusion was discontinued after the patient's conversion to sinus rhythm. Continue aspirin 81 mg once a day, Eliquis 5 mg twice a day, Lasix 40 mg once a day, Solu-Medrol 40 mg intravenously every 12 hours, thiamine 100 mg once a day. Obtain an echocardiogram. Ishaan Hodges MD
== END 2017-08-25 16:27 | disposition left against medical advice (07) | DRG 749 ==
LOC: C.ER 23:24 → C.9I 08-25 04:43
PROVIDERS: ADMIT Specialist; ATTEND Specialist
DX: F10.120 Alcohol abuse with intoxication, uncomplicated (principal); J44.1 Chronic obstructive pulmonary disease with (acute) exacerbation; I11.0 Hypertensive heart disease with heart failure; I50.9 Heart failure, unspecified; F14.10 Cocaine abuse, uncomplicated; Y90.8 Blood alcohol level of 240 mg/100 ml or more; F19.10 Other psychoactive substance abuse, uncomplicated; I48.0 Paroxysmal atrial fibrillation; I25.10 Atherosclerotic heart disease of native coronary artery without angina pectoris; F17.200 Nicotine dependence, unspecified, uncomplicated; Z95.1 Presence of aortocoronary bypass graft; Z95.810 Presence of automatic (implantable) cardiac defibrillator; E78.00 Pure hypercholesterolemia, unspecified; E11.9 Type 2 diabetes mellitus without complications; F12.10 Cannabis abuse, uncomplicated; Z79.4 Long term (current) use of insulin

== ENCOUNTER 2017-09-19 20:25 | Emergency (ER) | payer OTHER ==
[2017-09-19 20:25] VITALS: PULSE 126; BMI 11.7
[2017-09-19 20:46] VITALS: O2SAT 100
--- NOTE | 2017-09-19 20:51 | C.PDOC ---
History Of Present Illness Patient was found intoxicated in public and brought to ED by EMS. He admits to drinking and smoking marijuana today. Denies any chest pain, palpitations, shortness of breath. Time Seen by Provider: 09/19/17 20:48 Chief Complaint (Nursing): Chest Pain History Per: Patient History/Exam Limitations: no limitations Onset/Duration Of Symptoms: Hrs Current Symptoms Are (Timing): Still Present Suicide/Self Injury Attempted (Context): None Modifying Factor(s): Alcohol, Marijuana Severity: None Pain Scale Rating Of: 0 Associated Symptoms: denies: Depression, Suicidal Thoughts Involuntary Hold By: None Recent travel outside of the [place]: No Past Medical History Reviewed: Historical Data, Nursing Documentation, Vital Signs Vital Signs: Last Vital Signs Temp 97.1 F L 09/19/17 20:38 Pulse 84 09/19/17 21:00 Resp 20 09/19/17 21:00 BP 126/72 09/19/17 20:38 Pulse Ox 100 09/19/17 21:02 - Medical History PMH: Asthma, Atrial Fibrillation, Back Problems, Cardia Arrhythmia, CHF, COPD, Depression, HTN, Hypercholesterolemia, Pneumonia, Seizures Denies: Chronic Kidney Disease Surgical History: CABG, Coronary Stent (4), Pacemaker - [facility] Procedures ASSISTANCE WITH RESPIRATORY VENTILATION, 24-96 HRS, CPAP (11/06/16) CORONAR ARTERIOGR-2 CATH (06/24/14) CORONARY ARTERY STENT INSERTION [id number] (06/24/14) DETOXIFICATION SERVICES FOR SUBSTANCE ABUSE TREATMENT (08/12/17) INFLUENZA VACCINATION (04/25/14) INSERTION OF ONE VASCULAR STENT (06/24/14) INTRODUCE OF OTH THERAP SUBST INTO RESP TRACT, VIA OPENING (06/19/15) INTRODUCTION OF SERUM/TOX/VACCINE INTO MUSCLE, PERC APPROACH (01/05/16) LEFT HEART CARDIAC CATH (06/24/14) NEBULIZER THERAPY (07/12/14) PERCUTANEOUS TRANSLUMINAL CORONARY ANGIOPLASTY [PTCA] (06/24/14) PROCEDURE ON SINGLE VESSEL (06/24/14) VACCINATION NEC (04/25/14) Family History: States: Diabetes - Social History Hx Tobacco Use: Yes Hx Alcohol Use: Yes Hx Substance Use: Yes - Immunization History Hx Tetanus Toxoid Vaccination: No Hx Influenza Vaccination: No Hx Pneumococcal Vaccination: No Review Of Systems Constitutional: Negative for: Fever, Weakness Cardiovascular: Negative for: Chest Pain, Palpitations Respiratory: Negative for: Shortness of Breath Gastrointestinal: Negative for: Nausea, Vomiting Neurological: Negative for: Weakness, Numbness Physical Exam - Physical Exam Appears: Non-toxic Skin: Warm, Dry Head: Normacephalic Oral Mucosa: Moist Neck: Trachea Midline, Supple Chest: Symmetrical Cardiovascular: Rhythm Regular Respiratory: No Rales, No Rhonchi, Wheezing (diffused) Gastrointestinal/Abdominal: Soft, No Tenderness, No Distention Neurological/Psych: Oriented x3 Gait: Steady ED Course And Treatment O2 Sat by Pulse Oximetry: 100 (RA) Pulse Ox Interpretation: Normal Disposition Counseled Patient/Family Regarding: Studies Performed, Diagnosis, Need For Followup - Disposition Referrals: [facility] [Outside] Disposition: HOME/ ROUTINE Disposition Time: 20:51 Condition: FAIR Instructions: Alcohol Abuse and Alcoholism (DC) Forms: [employer] (Frisian) - Clinical Impression Clinical Impression: Alcohol intoxication - Scribe Statement The provider has reviewed the documentation as recorded by the Lesli Castillo Cheng Provider Attestation: All medical record entries made by the Lesli were at my direction and personally dictated by me. I have reviewed the chart and agree that the record accurately reflects my personal performance of the history, physical exam, medical decision making, and the department course for this patient. I have also personally directed, reviewed, and agree with the discharge instructions and disposition.
[2017-09-19] MEDS: Albuterol-Ipratrop 3 mg / 0.5 (3 ml) UD IH SCH ×3 (21:30→22:07)
[2017-09-20 06:10] VITALS: TEMP 97.1
[2017-09-20 06:16] VITALS: PULSE 80
[2017-09-20 06:17] VITALS: BP 134/80; RESP 18
--- NOTE | 2017-09-20 15:19 | CARD ---
APPROVED REPORT Date of service: 09/19/2017 EKG Measurement Heart [id number] <Conclusion> Sinus tachycardia with occasional premature ventricular complexes Nonspecific T wave abnormality Abnormal ECG
== END 2017-09-20 05:40 | disposition home or self-care (01) ==
LOC: C.ER 20:25
DX: F10.129 Alcohol abuse with intoxication, unspecified (principal); J45.909 Unspecified asthma, uncomplicated; I11.0 Hypertensive heart disease with heart failure; I50.9 Heart failure, unspecified; F17.210 Nicotine dependence, cigarettes, uncomplicated

== ENCOUNTER 2018-04-15 02:33 | Inpatient (IN) | payer OTHER ==
[2018-04-15 02:33] VITALS: BMI 11.7
[2018-04-15] MEDS ORDERED: Aspirin 325 mg EC Tablets PO ONE (02:57)
[2018-04-15] MEDS ORDERED: Sodium Chloride 0.9% 1,000 ML IV ONE (03:15)
[2018-04-15] MEDS ORDERED: Aspirin 325 mg EC Tablets PO STA (03:15)
--- NOTE | 2018-04-15 03:15 | C.PDOC ---
History Of Present Illness 57 year old male with PMHx of chronic alcoholism, Hep C and Afib on eliquis is brought to the ED by nephew for evaluation of questionable seizure. Patient also c/o chest pain, patient reports he has been drinking tonight. Patient was worked up at the end of February at [facility] for seizures. Patient has an echo done which showed EF of 15%. Patient denies fever, chills, headache, visual changes, SOB, palpitations, injury, trauma, weakness, numbness. Time Seen by Provider: 04/15/18 03:07 Chief Complaint (Nursing): Seizure History Per: Patient, Family History/Exam Limitations: no limitations Recent Seizure Activity Began: Just Before Arrival Number Of Seizures: One Length Of Seizures (Duration): Unknown Quality Of Seizure: Generalized Precipitating Factor(s): Recent Alcohol Ingestion Post-ictal Period: No Severity: None Recent travel outside of the [place]: No Additional History Per: Patient Past Medical History Reviewed: Historical Data, Nursing Documentation, Vital Signs Vital Signs: Last Vital Signs Temp 97.9 F 04/15/18 02:57 Pulse 112 H 04/15/18 02:57 Resp 24 04/15/18 02:57 BP 140/90 04/15/18 02:57 Pulse Ox 100 04/15/18 02:57 - Medical History PMH: Asthma, Atrial Fibrillation, Back Problems, Cardia Arrhythmia, CHF, COPD, Depression, HTN, Hypercholesterolemia, Pneumonia, Seizures Denies: Chronic Kidney Disease Surgical History: CABG (double), Coronary Stent (4), Pacemaker - [facility] Procedures ASSISTANCE WITH RESPIRATORY VENTILATION, 24-96 HRS, CPAP (11/06/16) CORONAR ARTERIOGR-2 CATH (06/24/14) CORONARY ARTERY STENT INSERTION [id number] (06/24/14) DETOXIFICATION SERVICES FOR SUBSTANCE ABUSE TREATMENT (08/12/17) INFLUENZA VACCINATION (04/25/14) INSERTION OF ONE VASCULAR STENT (06/24/14) INTRODUCE OF OTH THERAP SUBST INTO RESP TRACT, VIA OPENING (06/19/15) INTRODUCTION OF SERUM/TOX/VACCINE INTO MUSCLE, PERC APPROACH (01/05/16) LEFT HEART CARDIAC CATH (06/24/14) NEBULIZER THERAPY (07/12/14) PERCUTANEOUS TRANSLUMINAL CORONARY ANGIOPLASTY [PTCA] (06/24/14) PROCEDURE ON SINGLE VESSEL (06/24/14) VACCINATION NEC (04/25/14) Family History: States: Unknown Family Hx, Diabetes - Social History Hx Tobacco Use: Yes Hx Alcohol Use: Yes Hx Substance Use: Yes - Immunization History Hx Tetanus Toxoid Vaccination: No Hx Influenza Vaccination: No Hx Pneumococcal Vaccination: No Review Of Systems Constitutional: Negative for: Fever, Chills Cardiovascular: Positive for: Chest Pain. Negative for: Palpitations Respiratory: Positive for: Shortness of Breath. Negative for: Cough Gastrointestinal: Negative for: Nausea, Vomiting, Abdominal Pain Musculoskeletal: Negative for: Back Pain Skin: Negative for: Rash Neurological: Negative for: Weakness, Numbness, Headache, Dizziness Psych: Negative for: Anxiety Physical Exam - Physical Exam Appears: Non-toxic, Other (AOB) Skin: Warm, Dry Head: Normacephalic Eye(s): bilateral: Normal Inspection Oral Mucosa: Moist Neck: No Midline Cervical Tenderness, Supple Chest: Symmetrical Cardiovascular: Rhythm Regular, Other (left chest defibrillator, CABG scar) Respiratory: Rales, No Rhonchi, No Wheezing Gastrointestinal/Abdominal: Soft, No Tenderness, No Distention, No Guarding, No Rebound Back: No CVA Tenderness Extremity: Normal ROM, Pedal Edema Extremity: Bilateral: Atraumatic, Normal Color And Temperature, Normal ROM Pulses: Left Dorsalis Pedis: Normal, Right Dorsalis Pedis: Normal Neurological/Psych: Oriented x3, Normal Speech, Normal Cognition Gait: Unsteady ED Course And Treatment - Laboratory Results Result Diagrams: 04/15/18 03:22 04/15/18 03:22 ECG: Interpreted By Me, Viewed By Me ECG Rhythm: Sinus Rhythm (117), Nonspecific Changes (lvh, occ pvc's unchanged) O2 Sat by Pulse Oximetry: 100 (ON RA) Pulse Ox Interpretation: Normal - Radiology CXR: Interpreted by Me, Viewed By Me Progress Note: Plan: - EKG. - Labs. - CXR. - Aspirin 325 mg PO. - IV fluids. - UA Disposition Discussed With : Suraj Antonio Jr. Comment: accepted the pt on his service and took over the care at 4AM Doctor Will See Patient In The: ED Counseled Patient/Family Regarding: Studies Performed, Diagnosis - Disposition Referrals: Obey MENON,Lamin WHITE MD [Primary Care Provider] - Disposition: HOSPITALIZED Disposition Time: 03:15 Condition: GUARDED Forms: [facility] (Portuguese) - POA Present On Arrival: Poor Glycemic Control - Clinical Impression Clinical Impression: Alcohol intoxication, COPD exacerbation, Chest pain - Scribe Statement The provider has reviewed the documentation as recorded by the Scribe Toribio Moore All medical record entries made by the Scribe were at my direction and personally dictated by me. I have reviewed the chart and agree that the record accurately reflects my personal performance of the history, physical exam, medical decision making, and the department course for this patient. I have also personally directed, reviewed, and agree with the discharge instructions and disposition. Decision To Admit - Pt Status Changed To: Hospital Disposition Of: Inpatient - Admit Certification Admit to Inpatient:: After my assessment, the patient will require hospitalization for at least two midnights. This is because of the severity of symptoms shown, intensity of services needed, and/or the medical risk in this patient being treated as an outpatient. - InPatient: Physician Admission Certification: I certify that this patient requires 2 or more midnights of care for the following reason:: After my assessment, the patient will require hospitalization for at least two midnights. This is because of the severity of symptoms shown, intensity of services needed, and/or the medical risk in this patient being treated as an outpatient. - . Bed Request Type: Telemetry Admitting Physician: Suraj Antonio Jr. Patient Diagnosis: Alcohol intoxication, COPD exacerbation, Chest pain
[2018-04-15 03:25] LABS: BASO # 0.1 K/uL (0.0-0.2); BASO % 1.3 % (0.0-2.0); EOS # 0.1 K/uL (0.0-0.7); EOS % 1.1 % (0.0-4.0); HEMOGLOBIN 10.7 g/dL (12.0-18.0); LYMPH % 17.2 % (20.0-40.0); MEAN CELL VOLUME 92.5 fL (80.0-94.0); MEAN CORPUSCULAR HEMOGLOBIN 30.3 pg (27.0-31.0); MEAN CORPUSCULAR HGB CONC 32.8 g/dL (33.0-37.0); MEAN PLATELET VOLUME 8.3 fL (7.2-11.7); MONO % 17.4 % (0.0-10.0); NEUT # 7.3 K/uL (1.8-7.0); NRBC % 0.1 % (0.0-2.0); RBC 3.54 Mil/uL (4.40-5.90); RED CELL DISTRIBUTION WIDTH 16.3 % (11.5-14.5); WHITE BLOOD COUNT 11.5 K/uL (4.8-10.8)
[2018-04-15] MEDS ORDERED: Sodium Chloride 0.9% 1,000 ML ONE (03:31)
[2018-04-15 03:35] LABS: INR 0.9; PROTHROMBIN TIME 10.3 SECONDS (9.7-12.2)
[2018-04-15 03:37] LABS: ALB/GLOB RATIO 1.1 (1.0-2.1); ALBUMIN 3.9 g/dL (3.5-5.0); ALT/SGPT 111 U/L (21-72); AST/SGOT 132 U/L (17-59); BLOOD UREA NITROGEN 8 mg/dL (9-20); CALCIUM 8.7 mg/dl (8.6-10.4); GFR NON-AFRICAN AMERICAN > 60; LIPASE 583 U/L (23-300)
[2018-04-15 03:48] LABS: B-TYPE NATRIURETIC PEPTIDE 1060 pg/mL (0-900)
--- NOTE | 2018-04-15 04:19 | CP.PCM.HP ---
History of Present Illness - History of Present Illness History of Present Illness: PGY-1 History and [address] Antonio Patient is a 57 year old male with a past medical history of Atrial fibrillation on Eliquis, HCV, Asthma, CHF (EF 15% s/p AICD), COPD, HTN, HLD, CAD s/p stents (RCA, 2015), polysubstance abuse, alcohol abuse brought into ED by nephew presenting with worsening SOB, mid-sternal chest pain and suspected seizure. Chest pain is nonexertional in nature and described as pressure sensation which does not radiate down extremities or up neck. Nephew at bedside states patient had seizures in the past due to alcohol, was noted to be shaking in the ambulance. He denies any eye rolling, frothing at the mouth, tongue biting, or other seizure-like activities. Patient does admit to drinking ton ight, states he was out in [facility] [place] and drank 4-5 [employer]. He denies any fall, numbness, weakness, LOC, headaches, chest pain, palpitations. 12 pt ROS reviewed and otherwise negative. PMHx: CHF ischemic cardiomyopathy (EF 15-25%) s/p AICD, CAD with stent placement, seizure disorder, multiple lacunar strokes, alcohol abuse, polysubstance abuse, medication noncompliance PSHx: stent placement, AICD placement, spleen resection, inguinal hernia, 2 screws in ankle Allergies: NKDA Home Meds: as per chart Social Hx: 5-6 cigarettes daily, hx of alcohol abuse, admits to drug use "when i was young" Family Hx: Father and mother with "heart problems" PMD: denies Present on Admission - Present on Admission Any Indicators Present on Admission: No Review of Systems - Review of Systems All systems: reviewed and no additional remarkable complaints except Review of Systems: as per HPI Past Patient History - Infectious Disease Hx of Infectious Diseases: None - Tetanus Immunizations Tetanus Immunization: Unknown - Past Medical History & Family History Past Medical History?: Yes - Past Social History Smoking Status: Light Smoker < 10 Cigarettes Daily - CARDIAC Hx Atrial Fibrillation: Yes Hx Cardia Arrhythmia: Yes Hx Congestive Heart Failure: Yes Hx Hypercholesterolemia: Yes Hx Hypertension: Yes Hx Pacemaker: Yes - PULMONARY Hx Asthma: Yes Hx Chronic Obstructive Pulmonary Disease (COPD): Yes Hx Pneumonia: Yes - NEUROLOGICAL Hx Seizures: Yes - HEENT Hx HEENT Problems: No - RENAL Hx Chronic Kidney Disease: No - ENDOCRINE/METABOLIC Hx Diabetes Mellitus Type 2: Yes - HEMATOLOGICAL/ONCOLOGICAL Hx Blood Disorders: Yes - INTEGUMENTARY Hx Dermatological Problems: No - MUSCULOSKELETAL/RHEUMATOLOGICAL Hx Falls: Yes - GASTROINTESTINAL Hx Gastrointestinal Disorders: No - GENITOURINARY/GYNECOLOGICAL Hx Genitourinary Disorders: No - PSYCHIATRIC Hx Depression: Yes Hx Substance Use: Yes - SURGICAL HISTORY Hx Coronary Artery Bypass Graft: Yes (double) Hx Coronary Stent: Yes (4) - ANESTHESIA Hx Anesthesia: Yes Hx Anesthesia Reactions: No Hx Malignant Hyperthermia: No Meds Allergies/Adverse Reactions: Allergies Allergy/AdvReac Type Severity Reaction Status Date / Time No Known Allergies Allergy Verified 04/15/18 02:57 Physical Exam - Constitutional Appears: Non-toxic, In Acute Distress - Head Exam Head Exam: ATRAUMATIC, NORMAL INSPECTION, NORMOCEPHALIC - Eye Exam Eye Exam: EOMI, Normal appearance. absent: Nystagmus, Scleral icterus Pupil Exam: NORMAL ACCOMODATION - ENT Exam ENT Exam: Normal Exam - Neck Exam Neck exam: Positive for: Full Rom, Normal Inspection. Negative for: Tenderness - Respiratory Exam Respiratory Exam: Decreased Breath Sounds, Rales. absent: Accessory Muscle Use, Rhonchi, Wheezes, Stridor - Cardiovascular Exam Cardiovascular Exam: Tachycardia, +S1, +S2 - GI/Abdominal Exam GI & Abdominal Exam: Distended, Normal Bowel Sounds, Soft. absent: Firm, Guarding, Mass, Rebound, Rigid, Tenderness - Extremities Exam Extremities exam: Positive for: normal capillary refill, normal inspection, pedal edema (2+ pitting), pedal pulses present. Negative for: calf tenderness - Neurological Exam Neurological exam: Alert, CN II-XII Intact, Oriented x3 - Skin Skin Exam: Diaphoretic, Intact, Normal Color, Warm Results - Vital Signs Recent Vital Signs: Last Vital Signs Temp 97.9 F 04/15/18 02:57 Pulse 106 H 04/15/18 03:48 Resp 17 04/15/18 03:48 BP 140/87 04/15/18 03:48 Pulse Ox 100 04/15/18 04:03 - Labs Result Diagrams: 04/15/18 03:22 04/15/18 03:22 Labs: Laboratory Results - last 24 hr 04/15/18 04/15/18 04/15/18 03:22 03:22 03:22 WBC 11.5 H RBC 3.54 L Hgb 10.7 L Hct 32.7 L MCV 92.5 MCH 30.3 MCHC 32.8 L RDW 16.3 H Plt Count 467 H D MPV 8.3 Neut % (Auto) 63.0 Lymph % (Auto) 17.2 L [place] % (Auto) 17.4 H Eos % (Auto) 1.1 Baso % (Auto) 1.3 Neut # (Auto) 7.3 H Lymph # (Auto) 2.0 [place] # (Auto) 2.0 H Eos # (Auto) 0.1 Baso # (Auto) 0.1 PT 10.3 INR 0.9 APTT 30 Sodium 136 Potassium 4.1 Chloride 98 Carbon Dioxide 30 Anion Gap 12 BUN 8 L Creatinine 0.5 L Est GFR ( Amer) > 60 Est GFR (Non-Af Amer) > 60 Random Glucose 150 H Calcium 8.7 Total Bilirubin 0.7 AST 132 H D ALT 111 H D Alkaline Phosphatase 457 H Troponin I 0.0370 NT-Pro-B Natriuret Pep 1060 H Total Protein 7.5 Albumin 3.9 Globulin 3.6 Albumin/Globulin Ratio 1.1 Lipase 583 H Alcohol, Quantitative 178 H Assessment & Plan - Assessment and Plan (Free Text) Assessment: 57 year old male with PMHX of Atrial fibrillation on Eliquis, HCV, Asthma, CHF (EF 20% s/p AICD), COPD, HTN, HLD, CAD s/p stents (RCA, 2015), polysubstance abuse, alcohol abuse brought into ED by nephew presenting with worsening SOB, mid-sternal chest pain and suspected seizure. Plan: Acute on Chronic CHF exacerbation -CXR shows venous congestion, cardiomegaly -f/u official read -BNP 1060 -ECHO (08/2017): EF 20%, dilated LV, suboptimal and incomplete study -repeat echo -strict I/Os -O2 prn -daily weights -keep head of bed elevated 45 degrees -lasix -home meds -ASA 81 PO QD -Coreg 12.5 PO BID -Lasix 40 IV Q12 -Lisinopril 5 PO QD -Losartan 25 PO QD -Aldactone 25 PO QD Chest pain r/o ACS -trop x 1 negative; f/u serial trops -EKG shows NSR 117 bpm, LVH with strain, no acute ST-T wave changes Shortness of breath in setting of COPD -Procal to r/o bacterial PNA as patient had leukocytosis -duonebs q4 hayley -Solumedrol 40 IV QD -Singulair 10mg PO HS -Mucinex 600 BID Alcohol withdrawal/alcohol withdrawal seizure -pt has history of alcohol withdrawal seizures -restart Keppra 500 mg PO BID -Folic acid 1mg PO QD -Thiamine 100 PO QD -Ativan 1 IV Q4H PRN for symptoms of withdrawal -CIWA protocol Atrial fibrillation s/p AICD -EKG NSR 117 bpm -restart home eliquis -digoxin 0.25 mg PO daily, dig level <0.4 Hx of CAD with stents -bare metal stent to RCA in 2014 -ASA -coreg -crestor HTN -140/87, continue to monitor -home meds DM -home meds held -A1C -ISS low -accucheck achs -hypoglycemic protocol HCV Transaminitis -AST/ALT: 132/111 -ALP 457 -Lipase 583 -abdominal u/s PPx, Diet, Disposition -DVT ppx: scds, eliquis -GI ppx: not indicated at this time -Diet: HHD soft Case discussed with Dr. Marisela Lim DO, PGY-1
[2018-04-15] MEDS ORDERED: Glucagon Recombinant 1 mg Inj IM PRN (04:59)
[2018-04-15] MEDS ORDERED: Dextrose 50% SYRINGE Inj (50 ml) IV PRN (05:04)
[2018-04-15] MEDS ORDERED: Albuterol-Ipratrop 3 mg / 0.5 (3 ml) UD INH PRN (05:20)
[2018-04-15] MEDS: (Novolin R) Insulin Human Regular 100 units/ml vial SC SCH ×4 (08:00→21:24)
[2018-04-15] MEDS ORDERED: Albuterol-Ipratrop 3 mg / 0.5 (3 ml) UD INH SCH (08:00)
--- NOTE | 2018-04-15 08:00 | CP.PCM.PN ---
Subjective - Date & Time of Evaluation Date of Evaluation: 04/15/18 Time of Evaluation: 08:00 - Subjective Subjective: Dr. Antonio Service: Progress Note Patient seen and examined at bedside. Patient somnolent but arousable during the examination. Shortly after leaving the room patient heart rate increased to 200 and HYDROGEN CELL TENDER was called as result. Patient transferred to ICU for kay monitoring. Objective - Vital Signs/Intake and Output Vital Signs (last 24 hours): Temp Pulse Resp BP Pulse Ox 98.2 F 118 H 28 H 153/93 H 98 04/15/18 05:32 04/15/18 05:32 04/15/18 05:32 04/15/18 05:32 04/15/18 05:32 - Medications Medications: Current Medications Albuterol/Ipratropium (Duoneb 3 Mg/0.5 Mg (3 Ml) Ud) 3 ml INH RQ4 [facility] Apixaban (Eliquis) 5 mg PO BID [facility] Aspirin (Aspirin Chewable) 81 mg PO DAILY [facility] Carvedilol (Coreg) 12.5 mg PO BID [facility] Dextrose (Dextrose 50% Inj) 0 ml IV STAT PRN; Protocol PRN Reason: Hypoglycemia Protocol Dextrose (Glutose 15) 0 gm PO ONCE PRN; Protocol PRN Reason: Hypoglycemia Protocol Digoxin (Lanoxin) 0.25 mg PO DAILY@1800 [facility] Folic Acid (Folic Acid) 1 mg PO DAILY [facility] Furosemide (Lasix) 40 mg IVP Q12 [facility] Glucagon (Glucagen Diagnostic Kit) 0 mg IM STAT PRN; Protocol PRN Reason: Hypoglycemia Protocol Guaifenesin (Mucinex La) 600 mg PO Q12H [facility] Dextrose (Dextrose 5% In Water 1000 Ml) 1,000 mls @ 0 mls/hr IV .Q0M PRN; Protocol PRN Reason: Hypoglycemia Protocol Insulin Human Regular (Novolin R) 0 unit SC ACHS [facility]; Protocol Levetiracetam (Keppra) 500 mg PO BID [facility] Lisinopril (Zestril) 5 mg PO DAILY [facility] Lorazepam (Ativan) 1 mg IVP Q4H PRN PRN Reason: Anxiety Losartan Potassium (Cozaar) 25 mg PO DAILY [facility] Methylprednisolone (Solu-Medrol) 40 mg IVP DAILY [facility] Montelukast Sodium (Singulair) 10 mg PO HS [facility] Rosuvastatin Calcium (Crestor) 10 mg PO HS [facility] Spironolactone (Aldactone) 25 mg PO BID [facility] Thiamine HCl (Vitamin B1 Tab) 100 mg PO DAILY [facility] - Labs Labs: 04/15/18 03:22 04/15/18 03:22 PT 10.3 SECONDS (9.7-12.2) 04/15/18 03:22 INR 0.9 04/15/18 03:22 APTT 30 SECONDS (21-34) 04/15/18 03:22 - Head Exam Head Exam: ATRAUMATIC, NORMAL INSPECTION - Eye Exam Eye Exam: EOMI, Normal appearance, PERRL. absent: Periorbital swelling Pupil Exam: NORMAL ACCOMODATION, PERRL - ENT Exam ENT Exam: Mucous Membranes Moist, Normal Oropharynx - Neck Exam Neck Exam: absent: Lymphadenopathy, Thyromegaly - Respiratory Exam Respiratory Exam: Clear to Ausculation Bilateral, NORMAL BREATHING PATTERN. absent: Prolonged Expiratory Phase, Respiratory Distress - Cardiovascular Exam Cardiovascular Exam: Tachycardia, +S1, +S2 - Back Exam Back Exam: NORMAL INSPECTION. absent: paraspinal tenderness - Neurological Exam Neurological Exam: Alert, Awake, CN II-XII Intact, Oriented x3 - Psychiatric Exam Psychiatric exam: Normal Affect, Normal Mood - Skin Skin Exam: Dry, Intact Assessment and Plan - Assessment and Plan (Free Text) Assessment: 57 year old male with PMHX of Atrial fibrillation on Eliquis, HCV, Asthma, CHF (EF 20% s/p AICD), COPD, HTN, HLD, CAD s/p stents (RCA, 2015), polysubstance abuse, alcohol abuse brought into ED by nephew presenting with worsening SOB, mid-sternal chest pain and suspected seizure. Plan: Acute on Chronic CHF exacerbation -CXR shows venous congestion, cardiomegaly -f/u official read -BNP 1060 -ECHO (08/2017): EF 20%, dilated LV, suboptimal and incomplete study -repeat echo -strict I/Os -O2 prn -daily weights -keep head of bed elevated 45 degrees -lasix -home meds -ASA 81 PO QD -Coreg 12.5 PO BID -Lasix 40 IV Q12 -Lisinopril 5 PO QD -Losartan 25 PO QD -Aldactone 25 PO QD Chest pain r/o ACS -trop x 1 negative; f/u serial trops -EKG shows NSR 117 bpm, LVH with strain, no acute ST-T wave changes Shortness of breath in setting of COPD -Procal to r/o bacterial PNA as patient had leukocytosis -duonebs q4 patience -Solumedrol 40 IV QD -Singulair 10mg PO HS -Mucinex 600 BID Alcohol withdrawal/alcohol withdrawal seizure -pt has history of alcohol withdrawal seizures -restart Keppra 500 mg PO BID -Folic acid 1mg PO QD -Thiamine 100 PO QD -Ativan 1 IV Q4H PRN for symptoms of withdrawal -CIWA protocol Atrial fibrillation s/p AICD -EKG NSR 117 bpm -restart home eliquis -digoxin 0.25 mg PO daily, dig level <0.4 Hx of CAD with stents -bare metal stent to RCA in 2014 -ASA -coreg -crestor HTN -140/87, continue to monitor -home meds DM -home meds held -A1C -ISS low -accucheck achs -hypoglycemic protocol HCV Transaminitis -AST/ALT: 132/111 -ALP 457 -Lipase 583 -abdominal u/s PPx -DVT ppx: scds, eliquis -GI ppx: not indicated at this time -Diet: HHD soft Case discussed with Dr. Antonio HYDROGEN CELL TENDER called and patient transferred to ICU for closer monitoring. Kristofer Herrera, PGY-2
--- NOTE | 2018-04-15 08:04 | CP.PCM.PN ---
Subjective - Date & Time of Evaluation Date of Evaluation: 04/15/18 Time of Evaluation: 08:03 Objective - Vital Signs/Intake and Output Vital Signs (last 24 hours): Temp Pulse Resp BP Pulse Ox 98.2 F 118 H 28 H 153/93 H 98 04/15/18 05:32 04/15/18 05:32 04/15/18 05:32 04/15/18 05:32 04/15/18 05:32 - Medications Medications: Current Medications Albuterol/Ipratropium (Duoneb 3 Mg/0.5 Mg (3 Ml) Ud) 3 ml INH RQ4 [facility] Apixaban (Eliquis) 5 mg PO BID [facility] Aspirin (Aspirin Chewable) 81 mg PO DAILY [facility] Carvedilol (Coreg) 12.5 mg PO BID [facility] Dextrose (Dextrose 50% Inj) 0 ml IV STAT PRN; Protocol PRN Reason: Hypoglycemia Protocol Dextrose (Glutose 15) 0 gm PO ONCE PRN; Protocol PRN Reason: Hypoglycemia Protocol Digoxin (Lanoxin) 0.25 mg PO DAILY@1800 [facility] Folic Acid (Folic Acid) 1 mg PO DAILY [facility] Furosemide (Lasix) 40 mg IVP Q12 [facility] Glucagon (Glucagen Diagnostic Kit) 0 mg IM STAT PRN; Protocol PRN Reason: Hypoglycemia Protocol Guaifenesin (Mucinex La) 600 mg PO Q12H [facility] Dextrose (Dextrose 5% In Water 1000 Ml) 1,000 mls @ 0 mls/hr IV .Q0M PRN; Protocol PRN Reason: Hypoglycemia Protocol Insulin Human Regular (Novolin R) 0 unit SC ACHS [facility]; Protocol Levetiracetam (Keppra) 500 mg PO BID [facility] Lisinopril (Zestril) 5 mg PO DAILY [facility] Lorazepam (Ativan) 1 mg IVP Q4H PRN PRN Reason: Anxiety Losartan Potassium (Cozaar) 25 mg PO DAILY [facility] Methylprednisolone (Solu-Medrol) 40 mg IVP DAILY [facility] Montelukast Sodium (Singulair) 10 mg PO HS [facility] Rosuvastatin Calcium (Crestor) 10 mg PO HS [facility] Spironolactone (Aldactone) 25 mg PO BID [facility] Thiamine HCl (Vitamin B1 Tab) 100 mg PO DAILY [facility] - Labs Labs: 04/15/18 03:22 04/15/18 03:22 PT 10.3 SECONDS (9.7-12.2) 04/15/18 03:22 INR 0.9 04/15/18 03:22 APTT 30 SECONDS (21-34) 04/15/18 03:22
[2018-04-15] MEDS ORDERED: Digoxin 500 mcg/2ml (0.5 mg/2ml) Inj IVP ONE (08:59)
[2018-04-15 09:03] LABS: BARBITURATES, UR NEGATIVE (NEGATIVE); BENZODIAZEPINES, UR NEGATIVE (NEGATIVE); OPIATES, UR NEGATIVE (NEGATIVE); PHENCYCLIDINE, UR NEGATIVE (NEGATIVE)
[2018-04-15 09:08] LABS: HEPATITIS B SURFACE AG Negative (NEGATIVE)
--- NOTE | 2018-04-15 09:09 | CP.CCUPN ---
CCU Objective - Vital Signs / Intake & Output Vital Signs (Last 4 hours): Vital Signs Temp Pulse Pulse Resp BP Pulse Ox 04/15/18 07:00 99 F 107 H 20 142/78 100 04/15/18 05:36 118 H 28 H 98 04/15/18 05:32 98.2 F 118 H 28 H 153/93 H 98 Intake and Output (Last 8hrs): Intake & Output 04/14/18 04/15/18 04/15/18 22:59 06:59 14:59 Weight 165 lb - Medications Active Medications: Active Medications Generic Name Dose Route Start Last Admin Trade Name Freq PRN Reason Stop Dose Admin Adenosine 12 mg 04/15/18 09:15 Adenosine 6 Mg/2 Ml Inj IVP 04/15/18 09:16 ONCE ONE Albuterol/Ipratropium 3 ml 04/15/18 06:04 Duoneb 3 Mg/0.5 Mg (3 Ml) Ud INH RQ4 [facility] Apixaban 5 mg 04/15/18 10:00 Eliquis PO BID [facility] Aspirin 81 mg 04/15/18 10:00 Aspirin Chewable PO DAILY [facility] Dextrose 0 ml 04/15/18 05:04 Dextrose 50% Inj IV STAT PRN Hypoglycemia Protocol Protocol Dextrose 0 gm 04/15/18 04:59 Glutose 15 PO ONCE PRN Hypoglycemia Protocol Protocol Digoxin 0.25 mg 04/15/18 18:00 Lanoxin PO DAILY@1800 [facility] Digoxin 0.5 mg 04/15/18 08:59 Lanoxin IVP 04/15/18 09:00 ONCE ONE Folic Acid 1 mg 04/15/18 10:00 Folic Acid PO DAILY [facility] Furosemide 40 mg 04/15/18 10:00 Lasix IVP Q12 [facility] Glucagon 0 mg 04/15/18 04:59 Glucagen Diagnostic Kit IM STAT PRN Hypoglycemia Protocol Protocol Guaifenesin 600 mg 04/15/18 09:00 Mucinex La PO Q12H [facility] Dextrose 1,000 mls @ 0 mls/hr 04/15/18 04:59 Dextrose 5% In Water 1000 Ml IV .Q0M PRN Hypoglycemia Protocol Protocol Per Protocol Insulin Human Regular 0 unit 04/15/18 07:30 Novolin R SC ACHS [facility] Protocol Levetiracetam 500 mg 04/15/18 10:00 Keppra PO BID [facility] Lisinopril 5 mg 04/15/18 10:00 Zestril PO DAILY [facility] Lorazepam 1 mg 04/15/18 05:01 Ativan IVP Q4H PRN Anxiety Lorazepam 2 mg 04/15/18 09:00 Ativan IVP Q6H [facility] Losartan Potassium 25 mg 04/15/18 10:00 Cozaar PO DAILY [facility] Methylprednisolone 40 mg 04/15/18 10:00 Solu-Medrol IVP DAILY [facility] Montelukast Sodium 10 mg 04/15/18 22:00 Singulair PO HS [facility] Rosuvastatin Calcium 10 mg 04/15/18 22:00 Crestor PO HS [facility] Spironolactone 25 mg 04/15/18 10:00 Aldactone PO BID [facility] Thiamine HCl 100 mg 04/15/18 10:00 Vitamin B1 Tab PO DAILY [facility] Verapamil HCl 2.5 mg 04/15/18 08:59 Verapamil Inj IVP 04/15/18 09:00 ONCE ONE - Patient Studies Lab Studies: Lab Studies 04/15/18 04/15/18 04/15/18 Range/Units 08:40 06:22 03:30 WBC (4.8-10.8) K/uL RBC (4.40-5.90) Mil/uL Hgb (12.0-18.0) g/dL Hct (35.0-51.0) % MCV (80.0-94.0) fL MCH (27.0-31.0) pg MCHC (33.0-37.0) g/dL RDW (11.5-14.5) % Plt Count (130-400) K/uL MPV (7.2-11.7) fL Neut % (Auto) (50.0-75.0) % Lymph % (Auto) (20.0-40.0) % [place] % (Auto) (0.0-10.0) % Eos % (Auto) (0.0-4.0) % Baso % (Auto) (0.0-2.0) % Neut # (Auto) (1.8-7.0) K/uL Lymph # (Auto) (1.0-4.3) K/uL [place] # (Auto) (0.0-0.8) K/uL Eos # (Auto) (0.0-0.7) K/uL Baso # (Auto) (0.0-0.2) K/uL PT (9.7-12.2) SECONDS INR APTT (21-34) SECONDS Sodium (132-148) mmol/L Potassium (3.6-5.2) mmol/L Chloride (98-107) mmol/L Carbon Dioxide (22-30) mmol/L Anion Gap (10-20) BUN (9-20) mg/dL Creatinine (0.8-1.5) mg/dL Est GFR ( Amer) Est GFR (Non-Af Amer) POC Glucose (mg/dL) 168 H (65-110) mg/dL Random Glucose (75-110) mg/dL Calcium (8.6-10.4) mg/dl Total Bilirubin (0.2-1.3) mg/dL AST (17-59) U/L ALT (21-72) U/L Alkaline Phosphatase (38-126) U/L Troponin I (0.00-0.120) ng/mL NT-Pro-B Natriuret Pep (0-900) pg/mL Total Protein (6.3-8.3) g/dL Albumin (3.5-5.0) g/dL Globulin (2.2-3.9) gm/dL Albumin/Globulin Ratio (1.0-2.1) Lipase (23-300) U/L Urine Opiates Screen Negative (NEGATIVE) Urine Methadone Screen Negative (NEGATIVE) Ur Barbiturates Screen Negative (NEGATIVE) Ur Phencyclidine Scrn Negative (NEGATIVE) Ur Amphetamines Screen Negative (NEGATIVE) U Benzodiazepines Scrn Negative (NEGATIVE) U Oth Cocaine Metabols Negative (NEGATIVE) Alcohol, Quantitative (0-10) mg/dl Hep Bs Antigen Negative (NEGATIVE) 04/15/18 04/15/18 04/15/18 Range/Units 03:22 03:22 03:22 WBC 11.5 H (4.8-10.8) K/uL RBC 3.54 L (4.40-5.90) Mil/uL Hgb 10.7 L (12.0-18.0) g/dL Hct 32.7 L (35.0-51.0) % MCV 92.5 (80.0-94.0) fL MCH 30.3 (27.0-31.0) pg MCHC 32.8 L (33.0-37.0) g/dL RDW 16.3 H (11.5-14.5) % Plt Count 467 H D (130-400) K/uL MPV 8.3 (7.2-11.7) fL Neut % (Auto) 63.0 (50.0-75.0) % Lymph % (Auto) 17.2 L (20.0-40.0) % [place] % (Auto) 17.4 H (0.0-10.0) % Eos % (Auto) 1.1 (0.0-4.0) % Baso % (Auto) 1.3 (0.0-2.0) % Neut # (Auto) 7.3 H (1.8-7.0) K/uL Lymph # (Auto) 2.0 (1.0-4.3) K/uL [place] # (Auto) 2.0 H (0.0-0.8) K/uL Eos # (Auto) 0.1 (0.0-0.7) K/uL Baso # (Auto) 0.1 (0.0-0.2) K/uL PT 10.3 (9.7-12.2) SECONDS INR 0.9 APTT 30 (21-34) SECONDS Sodium 136 (132-148) mmol/L Potassium 4.1 (3.6-5.2) mmol/L Chloride 98 (98-107) mmol/L Carbon Dioxide 30 (22-30) mmol/L Anion Gap 12 (10-20) BUN 8 L (9-20) mg/dL Creatinine 0.5 L (0.8-1.5) mg/dL Est GFR ( Amer) > 60 Est GFR (Non-Af Amer) > 60 POC Glucose (mg/dL) (65-110) mg/dL Random Glucose 150 H (75-110) mg/dL Calcium 8.7 (8.6-10.4) mg/dl Total Bilirubin 0.7 (0.2-1.3) mg/dL AST 132 H D (17-59) U/L ALT 111 H D (21-72) U/L Alkaline Phosphatase 457 H (38-126) U/L Troponin I 0.0370 (0.00-0.120) ng/mL NT-Pro-B Natriuret Pep 1060 H (0-900) pg/mL Total Protein 7.5 (6.3-8.3) g/dL Albumin 3.9 (3.5-5.0) g/dL Globulin 3.6 (2.2-3.9) gm/dL Albumin/Globulin Ratio 1.1 (1.0-2.1) Lipase 583 H (23-300) U/L Urine Opiates Screen (NEGATIVE) Urine Methadone Screen (NEGATIVE) Ur Barbiturates Screen (NEGATIVE) Ur Phencyclidine Scrn (NEGATIVE) Ur Amphetamines Screen (NEGATIVE) U Benzodiazepines Scrn (NEGATIVE) U Oth Cocaine Metabols (NEGATIVE) Alcohol, Quantitative 178 H (0-10) mg/dl Hep Bs Antigen (NEGATIVE) Laboratory Results - last 24 hr 04/15/18 04/15/18 04/15/18 03:22 03:22 03:22 WBC 11.5 H RBC 3.54 L Hgb 10.7 L Hct 32.7 L MCV 92.5 MCH 30.3 MCHC 32.8 L RDW 16.3 H Plt Count 467 H D MPV 8.3 Neut % (Auto) 63.0 Lymph % (Auto) 17.2 L [place] % (Auto) 17.4 H Eos % (Auto) 1.1 Baso % (Auto) 1.3 Neut # (Auto) 7.3 H Lymph # (Auto) 2.0 [place] # (Auto) 2.0 H Eos # (Auto) 0.1 Baso # (Auto) 0.1 PT 10.3 INR 0.9 APTT 30 Sodium 136 Potassium 4.1 Chloride 98 Carbon Dioxide 30 Anion Gap 12 BUN 8 L Creatinine 0.5 L Est GFR ( Amer) > 60 Est GFR (Non-Af Amer) > 60 POC Glucose (mg/dL) Random Glucose 150 H Calcium 8.7 Total Bilirubin 0.7 AST 132 H D ALT 111 H D Alkaline Phosphatase 457 H Troponin I 0.0370 NT-Pro-B Natriuret Pep 1060 H Total Protein 7.5 Albumin 3.9 Globulin 3.6 Albumin/Globulin Ratio 1.1 Lipase 583 H Urine Opiates Screen Urine Methadone Screen Ur Barbiturates Screen Ur Phencyclidine Scrn Ur Amphetamines Screen U Benzodiazepines Scrn U Oth Cocaine Metabols Alcohol, Quantitative 178 H Hep Bs Antigen 04/15/18 04/15/18 04/15/18 03:30 06:22 08:40 WBC RBC Hgb Hct MCV MCH MCHC RDW Plt Count MPV Neut % (Auto) Lymph % (Auto) [place] % (Auto) Eos % (Auto) Baso % (Auto) Neut # (Auto) Lymph # (Auto) Pitt # (Auto) Eos # (Auto) Baso # (Auto) PT INR APTT Sodium Potassium Chloride Carbon Dioxide Anion Gap BUN Creatinine Est GFR ( Amer) Est GFR (Non-Af Amer) POC Glucose (mg/dL) 168 H Random Glucose Calcium Total Bilirubin AST ALT Alkaline Phosphatase Troponin I NT-Pro-B Natriuret Pep Total Protein Albumin Globulin Albumin/Globulin Ratio Lipase Urine Opiates Screen Negative Urine Methadone Screen Negative Ur Barbiturates Screen Negative Ur Phencyclidine Scrn Negative Ur Amphetamines Screen Negative U Benzodiazepines Scrn Negative U Oth Cocaine Metabols Negative Alcohol, Quantitative Hep Bs Antigen Negative EKG/Cardiology Studies: Cardiology / EKG Studies 04/15/18 03:15 ELECTROCARDIOGRAM Stat Comment: Mode Of Transportation: BED Reason For Exam: chest pain Critical Care Progress Note - Nutrition Nutrition: Nutrition Category Date Time Status Heart Healthy Diet [DIET] Diets 04/15/18 Breakfast Active
[2018-04-15 09:14] LABS: HEPATITIS A IGM NEGATIVE (NEGATIVE); HEPATITIS B CORE AB NEGATIVE (NEGATIVE)
[2018-04-15] MEDS ORDERED: Magnesium Sulfate 1 gm in D5W 1 GM/100 ML BAG IVPB ONE (09:16)
[2018-04-15] MEDS ORDERED: Sodium Chloride 0.9% 500 ML IV ONE (09:16)
[2018-04-15] MEDS: MethylPREDNISolone 40 mg Vial IVP SCH (10:15)
[2018-04-15] MEDS: guaiFENesin 600 mg ER Tab PO SCH ×2 (10:16→21:34)
--- NOTE | 2018-04-15 10:23 | PCM.RRT ---
<Kristofer Herrera - Last Filed: 04/15/18 10:30> - Head Head Exam: ATRAUMATIC, NORMAL INSPECTION - Eyes Eye Exam: EOMI, Normal appearance, PERRL - Respiratory Exam Respiratory Exam: Rales, NORMAL BREATHING PATTERN. absent: Prolonged Expiratory Phase, Respiratory Distress - Cardiovascular Exam Cardiovascular Exam: Tachycardia, +S1, +S2 - GI/Abdominal Exam GI & Abdominal Exam: Soft, Normal Bowel Sounds - Neurological Exam Neurological Exam: Alert, Awake Plan - Assessment of Findings&Treatment Plan 57 year old male with a past medical history of copd, chf, seizure disorder, cad with stents, afib s/p AICD, hypertension and diabetes because tachycardic with rate near 200bpm. A rapid response was called as a result. Plan: -Chest xray -EKG -Blood glucose -CMP, Mg, Phos -IV Adenosine push, 6mg, 12mg, 12 mg -IV Amiodarone 150mg STAT -IV Amiodarone drip Patient was unable to be broken with 3 consecutive rounds of Adenosine. IV Amiodarone 150mg was given and then IV Amiodarone drip was started. ICU was consulted and accepted the patient to the unit. Primary was alerted and Cardiology made aware of the patient. <Jose Lema - Last Filed: 04/16/18 07:34> [facility] Nurses Assessment - Vital Signs Vital Signs: Rapid Response Vital Sign Blood Pressure 143/76 Pulse Rate 195 Respiratory Rate 22 Temperature 98.9 F Oxygen Saturation 98 - Vital Signs at end of [facility] Vital Signs at end of [facility]: Rapid Response End Vital Sign Blood Pressure 121/59 Attending/Attestation - Attestation I have personally seen and examined this patient.: Yes I have fully participated in the care of the patient.: Yes I have reviewed all pertinent clinical information, including history, physical exam and plan: Yes Notes (Text): 04/15/18 14:00 Patient was seen and examined with resident [facility] was run with resident Jose Lema D.O.
[2018-04-15 10:53] LABS: HDL CHOLESTEROL 86 mg/dL (30-70)
[2018-04-15 10:54] LABS: ACETAMINOPHEN < 10.0 ug/mL (10.0-30.0); SALICYLATE 2.1 mg/dL 1
[2018-04-15 11:04] LABS: LDL CHOLESTEROL 77 mg/dL (0-129)
[2018-04-15 11:07] LABS: ALB/GLOB RATIO 1.1 (1.0-2.1); ALBUMIN 3.4 g/dL (3.5-5.0); ALT/SGPT 103 U/L (21-72); AST/SGOT 138 U/L (17-59); BLOOD UREA NITROGEN 5 mg/dL (9-20); CALCIUM 8.3 mg/dl (8.6-10.4); CK-MB 2.99 ng/mL (0.0-3.38); GFR NON-AFRICAN AMERICAN > 60; TROPONIN I 0.033 ng/mL (0.00-0.120)
[2018-04-15 11:30] LABS: CK-MB 3.18 ng/mL (0.0-3.38)
--- NOTE | 2018-04-15 11:49 | CP.PCM.PCO ---
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
[2018-04-15 11:57] LABS: URINE BILIRUBIN NEGATIVE (NEGATIVE); URINE BLOOD NEGATIVE (NEGATIVE); URINE CLARITY Clear (Clear); URINE COLOR Straw (YELLOW); URINE GLUCOSE (UA) NORMAL (Normal); URINE LEUKOCYTE ESTERASE NEG Leu/uL (Negative); URINE PROTEIN NEGATIVE (NEGATIVE); URINE UROBILINOGEN NORMAL mg/dL (0.2-1.0)
--- NOTE | 2018-04-15 11:59 | CP.PCM.CON ---
<Jesse Huerta - Last Filed: 04/15/18 11:54> History of Present Illness - History of Present Illness History of Present Illness: ICU consult note for Dr. Rachel Lema. ICU consulted for persistent SVT & hypotension 57 M w/ Atrial fibrillation on Eliquis, HCV, Asthma, CHF (EF 15% s/p AICD), COPD, HTN, HLD, CAD s/p stents (RCA, 2015), polysubstance abuse, alcohol abuse brought into ED by nephew presenting with worsening SOB, mid-sternal chest pain and suspected seizure. [facility] PS[facility]IAT[facility]ST called due to AICD firing X 1, and HR in 180s. Patient was found to be in SVT and was given 07/28/11 of adenosine. Patient remained in SVT and BP was at low 100s. Patient was given 1 ativan due to hx of ETOH abuse and (+) alcohol screen on admission of over 100s. AMiodarone drip started and trasfered to ICU. PMHx: CHF ischemic cardiomyopathy (EF 15-25%) s/p AICD, CAD with stent placement, seizure disorder, multiple lacunar strokes, alcohol abuse, polysubstance abuse, medication noncompliance PSHx: stent placement, AICD placement, spleen resection, inguinal hernia, 2 screws in ankle Allergies: NKDA Home Meds: as per chart Social Hx: 5-6 cigarettes daily, hx of alcohol abuse, admits to drug use "when i was young" Family Hx: Father and mother with "heart problems" PMD: denies Review of Systems - Constitutional Constitutional: absent: Chills, Headache - EENT Eyes: absent: Blurred Vision, Diplopia Nose/Mouth/Throat: absent: Nasal Congestion, Nasal Discharge - Cardiovascular Cardiovascular: Palpitations. absent: Chest Pain, Chest Pain at Rest, Syncope - Respiratory Respiratory: absent: Cough, Dyspnea, Hemoptysis - Gastrointestinal Gastrointestinal: absent: Abdominal Pain, Bloating - Genitourinary Genitourinary: absent: Change in Urinary Stream - Musculoskeletal Musculoskeletal: absent: Abnormal Gait, Arthralgias, Muscle Weakness - Integumentary Integumentary: absent: Lesions - Neurological Neurological: absent: Dizziness, Headaches - Psychiatric Psychiatric: absent: Confusion, Depression Past Patient History - Infectious Disease Hx of Infectious Diseases: None - Tetanus Immunizations Tetanus Immunization: Unknown - Past Medical History & Family History Past Medical History?: Yes - Past Social History Smoking Status: Light Smoker < 10 Cigarettes Daily - CARDIAC Hx Atrial Fibrillation: Yes Hx Cardia Arrhythmia: Yes Hx Congestive Heart Failure: Yes Hx Hypercholesterolemia: Yes Hx Hypertension: Yes Hx Pacemaker: Yes - PULMONARY Hx Asthma: Yes Hx Chronic Obstructive Pulmonary Disease (COPD): Yes Hx Pneumonia: Yes - NEUROLOGICAL Hx Seizures: Yes - HEENT Hx HEENT Problems: No - RENAL Hx Chronic Kidney Disease: No - ENDOCRINE/METABOLIC Hx Diabetes Mellitus Type 2: Yes - HEMATOLOGICAL/ONCOLOGICAL Hx Blood Disorders: Yes - INTEGUMENTARY Hx Dermatological Problems: No - MUSCULOSKELETAL/RHEUMATOLOGICAL Hx Falls: Yes - GASTROINTESTINAL Hx Gastrointestinal Disorders: No - GENITOURINARY/GYNECOLOGICAL Hx Genitourinary Disorders: No - PSYCHIATRIC Hx Depression: Yes Hx Substance Use: Yes - SURGICAL HISTORY Hx Coronary Artery Bypass Graft: Yes (double) Hx Coronary Stent: Yes (4) - ANESTHESIA Hx Anesthesia: Yes Hx Anesthesia Reactions: No Hx Malignant Hyperthermia: No Meds Allergies/Adverse Reactions: Allergies Allergy/AdvReac Type Severity Reaction Status Date / Time No Known Allergies Allergy Verified 04/15/18 02:57 - Medications Medications: Current Medications Albuterol/Ipratropium (Duoneb 3 Mg/0.5 Mg (3 Ml) Ud) 3 ml INH RQ4 [facility] Apixaban (Eliquis) 5 mg PO BID [facility] Last Admin: 04/15/18 10:16 Dose: 5 mg Aspirin (Aspirin Chewable) 81 mg PO DAILY [facility] Last Admin: 04/15/18 10:16 Dose: 81 mg Dextrose (Dextrose 50% Inj) 0 ml IV STAT PRN; Protocol PRN Reason: Hypoglycemia Protocol Dextrose (Glutose 15) 0 gm PO ONCE PRN; Protocol PRN Reason: Hypoglycemia Protocol Digoxin (Lanoxin) 0.25 mg PO DAILY@1800 [facility] Folic Acid (Folic Acid) 1 mg PO DAILY [facility] Last Admin: 04/15/18 10:17 Dose: 1 mg Furosemide (Lasix) 40 mg IVP Q24H [facility] Glucagon (Glucagen Diagnostic Kit) 0 mg IM STAT PRN; Protocol PRN Reason: Hypoglycemia Protocol Guaifenesin (Mucinex La) 600 mg PO Q12H [facility] Last Admin: 04/15/18 10:16 Dose: 600 mg Dextrose (Dextrose 5% In Water 1000 Ml) 1,000 mls @ 0 mls/hr IV .Q0M PRN; Protocol PRN Reason: Hypoglycemia Protocol Insulin Human Regular (Novolin R) 0 unit SC ACHS [facility]; Protocol Last Admin: 04/15/18 08:00 Dose: Not Given Levetiracetam (Keppra) 500 mg PO BID [facility] Last Admin: 04/15/18 10:16 Dose: 500 mg Lisinopril (Zestril) 5 mg PO DAILY [facility] Last Admin: 04/15/18 10:19 Dose: 5 mg Methylprednisolone (Solu-Medrol) 40 mg IVP DAILY [facility] Last Admin: 04/15/18 10:15 Dose: 40 mg Montelukast Sodium (Singulair) 10 mg PO HS [facility] Rosuvastatin Calcium (Crestor) 10 mg PO HS [facility] Spironolactone (Aldactone) 25 mg PO BID [facility] Last Admin: 04/15/18 10:16 Dose: 25 mg Thiamine HCl (Vitamin B1 Tab) 100 mg PO DAILY [facility] Last Admin: 04/15/18 10:16 Dose: 100 mg Verapamil HCl (Calan Sr Tab) 180 mg PO DAILY [facility] Physical Exam - Constitutional Appears: Non-toxic, No Acute Distress - Head Exam Head Exam: NORMAL INSPECTION - Eye Exam Eye Exam: Normal appearance - ENT Exam ENT Exam: Mucous Membranes Moist - Respiratory Exam Respiratory Exam: Decreased Breath Sounds, Rales - Cardiovascular Exam Cardiovascular Exam: Tachycardia, +S1 - GI/Abdominal Exam GI & Abdominal Exam: Normal Bowel Sounds, Soft. absent: Distended, Firm - Extremities Exam Extremities exam: Positive for: normal inspection - Back Exam Back exam: absent: CVA tenderness (L), CVA tenderness (R) - Neurological Exam Neurological exam: Alert, Oriented x3 - Psychiatric Exam Psychiatric exam: Normal Affect, Normal Mood - Skin Skin Exam: Dry, Normal Color, Warm Results - Vital Signs Recent Vital Signs: Last Vital Signs Temp 99 F 04/15/18 07:00 Pulse 180 H 04/15/18 09:15 Resp 22 04/15/18 09:15 BP 123/72 04/15/18 10:15 Pulse Ox 98 04/15/18 09:15 - Labs Result Diagrams: 04/15/18 03:22 04/15/18 10:20 Labs: Laboratory Results - last 24 hr 04/15/18 04/15/18 04/15/18 03:22 03:22 03:22 WBC 11.5 H RBC 3.54 L Hgb 10.7 L Hct 32.7 L MCV 92.5 MCH 30.3 MCHC 32.8 L RDW 16.3 H Plt Count 467 H D MPV 8.3 Neut % (Auto) 63.0 Lymph % (Auto) 17.2 L [place] % (Auto) 17.4 H Eos % (Auto) 1.1 Baso % (Auto) 1.3 Neut # (Auto) 7.3 H Lymph # (Auto) 2.0 [place] # (Auto) 2.0 H Eos # (Auto) 0.1 Baso # (Auto) 0.1 PT 10.3 INR 0.9 APTT 30 Sodium 136 Potassium 4.1 Chloride 98 Carbon Dioxide 30 Anion Gap 12 BUN 8 L Creatinine 0.5 L Est GFR ( Amer) > 60 Est GFR (Non-Af Amer) > 60 POC Glucose (mg/dL) Random Glucose 150 H Calcium 8.7 Phosphorus Magnesium Total Bilirubin 0.7 AST 132 H D ALT 111 H D Alkaline Phosphatase 457 H Total Creatine Kinase CK-MB (Mass) Troponin I 0.0370 NT-Pro-B Natriuret Pep 1060 H Total Protein 7.5 Albumin 3.9 Globulin 3.6 Albumin/Globulin Ratio 1.1 Triglycerides Cholesterol LDL Cholesterol Direct HDL Cholesterol Lipase 583 H Salicylates Urine Opiates Screen Urine Methadone Screen Acetaminophen Ur Barbiturates Screen Ur Phencyclidine Scrn Ur Amphetamines Screen U Benzodiazepines Scrn U Oth Cocaine Metabols U Cannabinoids Screen Alcohol, Quantitative 178 H Hepatitis A IgM Ab Hep Bs Antigen Hep B Core IgM Ab 04/15/18 04/15/18 04/15/18 03:30 06:22 08:40 WBC RBC Hgb Hct MCV MCH MCHC RDW Plt Count MPV Neut % (Auto) Lymph % (Auto) [place] % (Auto) Eos % (Auto) Baso % (Auto) Neut # (Auto) Lymph # (Auto) [place] # (Auto) Eos # (Auto) Baso # (Auto) PT INR APTT Sodium Potassium Chloride Carbon Dioxide Anion Gap BUN Creatinine Est GFR ( Amer) Est GFR (Non-Af Amer) POC Glucose (mg/dL) 168 H Random Glucose Calcium Phosphorus Magnesium Total Bilirubin AST ALT Alkaline Phosphatase Total Creatine Kinase CK-MB (Mass) Troponin I NT-Pro-B Natriuret Pep Total Protein Albumin Globulin Albumin/Globulin Ratio Triglycerides Cholesterol LDL Cholesterol Direct HDL Cholesterol Lipase Salicylates Urine Opiates Screen Negative Urine Methadone Screen Negative Acetaminophen Ur Barbiturates Screen Negative Ur Phencyclidine Scrn Negative Ur Amphetamines Screen Negative U Benzodiazepines Scrn Negative U Oth Cocaine Metabols Negative U Cannabinoids Screen Positive H Alcohol, Quantitative Hepatitis A IgM Ab Negative Hep Bs Antigen Negative Hep B Core IgM Ab Negative 04/15/18 04/15/18 04/15/18 10:20 10:20 10:20 WBC RBC Hgb Hct MCV MCH MCHC RDW Plt Count MPV Neut % (Auto) Lymph % (Auto) [place] % (Auto) Eos % (Auto) Baso % (Auto) Neut # (Auto) Lymph # (Auto) [place] # (Auto) Eos # (Auto) Baso # (Auto) PT INR APTT Sodium 137 Potassium 4.1 Chloride 102 Carbon Dioxide 30 Anion Gap 10 BUN 5 L Creatinine 0.5 L Est GFR ( Amer) > 60 Est GFR (Non-Af Amer) > 60 POC Glucose (mg/dL) Random Glucose 135 H Calcium 8.3 L Phosphorus 3.7 Magnesium 1.4 L Total Bilirubin 0.8 AST 138 H ALT 103 H Alkaline Phosphatase 416 H Total Creatine Kinase 33 L 32 L CK-MB (Mass) 3.18 2.99 Troponin I 0.0320 0.0330 NT-Pro-B Natriuret Pep Total Protein 6.7 Albumin 3.4 L Globulin 3.3 Albumin/Globulin Ratio 1.1 Triglycerides Cholesterol LDL Cholesterol Direct HDL Cholesterol Lipase Salicylates 2.1 Urine Opiates Screen Urine Methadone Screen Acetaminophen < 10.0 L Ur Barbiturates Screen Ur Phencyclidine Scrn Ur Amphetamines Screen U Benzodiazepines Scrn U Oth Cocaine Metabols U Cannabinoids Screen Alcohol, Quantitative Hepatitis A IgM Ab Hep Bs Antigen Hep B Core IgM Ab 04/15/18 10:20 WBC RBC Hgb Hct MCV MCH MCHC RDW Plt Count MPV Neut % (Auto) Lymph % (Auto) [place] % (Auto) Eos % (Auto) Baso % (Auto) Neut # (Auto) Lymph # (Auto) [place] # (Auto) Eos # (Auto) Baso # (Auto) PT INR APTT Sodium Potassium Chloride Carbon Dioxide Anion Gap BUN Creatinine Est GFR ( Amer) Est GFR (Non-Af Amer) POC Glucose (mg/dL) Random Glucose Calcium Phosphorus Magnesium Total Bilirubin AST ALT Alkaline Phosphatase Total Creatine Kinase CK-MB (Mass) Troponin I NT-Pro-B Natriuret Pep Total Protein Albumin Globulin Albumin/Globulin Ratio Triglycerides 63 Cholesterol 162 LDL Cholesterol Direct 77 HDL Cholesterol 86 H Lipase Salicylates Urine Opiates Screen Urine Methadone Screen Acetaminophen Ur Barbiturates Screen Ur Phencyclidine Scrn Ur Amphetamines Screen U Benzodiazepines Scrn U Oth Cocaine Metabols U Cannabinoids Screen Alcohol, Quantitative Hepatitis A IgM Ab Hep Bs Antigen Hep B Core IgM Ab Assessment & Plan - Assessment and Plan (Free Text) Assessment: 57 year old male with PMHX of Atrial fibrillation on Eliquis, HCV, Asthma, CHF (EF 20% s/p AICD), COPD, HTN, HLD, CAD s/p stents (RCA, 2014), polysubstance abuse, alcohol abuse in ICU for runs of SVTs & hypotenion. Given digoxin 0.5mg & verapimil 5mg IVP, afib/ svts broken. continue to monitor, likely stable for transfer later this afternoon Plan: Neuro - A&O X 3 - ? seizure, keparra 500 mg PO BID Cardio - Afib, CHF 15%, CAD - c/w digoxin 0.25 mg daily, lisinopril 5 mg daily, aldactone 25 mg PO BID, aspirin 81 mg daily, plavix 75 mg daily, crestor 10 mg HS - start verapimil 180 mg PO daily Pulm - hx of asthma/ COPD - c/w duonebs Q4, methylprednisone 40 mg daily (d/c after short course due to Hep C+), singular 10 mg HS GI - hepatitis C + - F/u AFP r/o HCC - F/u abdoinal ultra sound - try to avoid excess steroids Renal - 5/0.5 - stable, continue to monitor - replace electrolytes Endo - hx of diabetes - F/u A1C - ISS - hypoglyemic protocol Heme - Afebrile - H/H stable 10s/32s PPx - GI: per primary team - DVT: on eliquis 5mg BID, heparin contraindicated <Randall Lema - Last Filed: 04/15/18 14:34> Meds - Medications Medications: Current Medications Albuterol/Ipratropium (Duoneb 3 Mg/0.5 Mg (3 Ml) Ud) 3 ml INH RQ4 [facility] Apixaban (Eliquis) 5 mg PO BID [facility] Last Admin: 04/15/18 10:16 Dose: 5 mg Aspirin (Aspirin Chewable) 81 mg PO DAILY [facility] Last Admin: 04/15/18 10:16 Dose: 81 mg Dextrose (Dextrose 50% Inj) 0 ml IV STAT PRN; Protocol PRN Reason: Hypoglycemia Protocol Dextrose (Glutose 15) 0 gm PO ONCE PRN; Protocol PRN Reason: Hypoglycemia Protocol Digoxin (Lanoxin) 0.25 mg PO DAILY@1800 [facility] Folic Acid (Folic Acid) 1 mg PO DAILY [facility] Last Admin: 04/15/18 10:17 Dose: 1 mg Furosemide (Lasix) 40 mg IVP Q24H [facility] Glucagon (Glucagen Diagnostic Kit) 0 mg IM STAT PRN; Protocol PRN Reason: Hypoglycemia Protocol Guaifenesin (Mucinex La) 600 mg PO Q12H [facility] Last Admin: 04/15/18 10:16 Dose: 600 mg Dextrose (Dextrose 5% In Water 1000 Ml) 1,000 mls @ 0 mls/hr IV .Q0M PRN; Protocol PRN Reason: Hypoglycemia Protocol Insulin Human Regular (Novolin R) 0 unit SC ACHS [facility]; Protocol Last Admin: 04/15/18 13:00 Dose: 1 u Levetiracetam (Keppra) 500 mg PO BID [facility] Last Admin: 04/15/18 10:16 Dose: 500 mg Lisinopril (Zestril) 5 mg PO DAILY [facility] Last Admin: 04/15/18 10:19 Dose: 5 mg Methylprednisolone (Solu-Medrol) 40 mg IVP DAILY [facility] Last Admin: 04/15/18 10:15 Dose: 40 mg Montelukast Sodium (Singulair) 10 mg PO HS [facility] Rosuvastatin Calcium (Crestor) 10 mg PO HS [facility] Spironolactone (Aldactone) 25 mg PO BID [facility] Last Admin: 04/15/18 10:16 Dose: 25 mg Thiamine HCl (Vitamin B1 Tab) 100 mg PO DAILY [facility] Last Admin: 04/15/18 10:16 Dose: 100 mg Verapamil HCl (Calan Sr Tab) 180 mg PO DAILY [facility] Last Admin: 04/15/18 13:43 Dose: 180 mg Results - Vital Signs Recent Vital Signs: Last Vital Signs Temp 99 F 04/15/18 07:00 Pulse 180 H 04/15/18 09:15 Resp 22 04/15/18 09:15 BP 123/72 04/15/18 10:15 Pulse Ox 98 04/15/18 09:15 - Labs Result Diagrams: 04/15/18 03:22 04/15/18 10:20 Labs: Laboratory Results - last 24 hr 04/15/18 04/15/18 04/15/18 03:22 03:22 03:22 WBC 11.5 H RBC 3.54 L Hgb 10.7 L Hct 32.7 L MCV 92.5 MCH 30.3 MCHC 32.8 L RDW 16.3 H Plt Count 467 H D MPV 8.3 Neut % (Auto) 63.0 Lymph % (Auto) 17.2 L [place] % (Auto) 17.4 H Eos % (Auto) 1.1 Baso % (Auto) 1.3 Neut # (Auto) 7.3 H Lymph # (Auto) 2.0 [place] # (Auto) 2.0 H Eos # (Auto) 0.1 Baso # (Auto) 0.1 PT 10.3 INR 0.9 APTT 30 Sodium 136 Potassium 4.1 Chloride 98 Carbon Dioxide 30 Anion Gap 12 BUN 8 L Creatinine 0.5 L Est GFR ( Amer) > 60 Est GFR (Non-Af Amer) > 60 POC Glucose (mg/dL) Random Glucose 150 H Calcium 8.7 Phosphorus Magnesium Total Bilirubin 0.7 AST 132 H D ALT 111 H D Alkaline Phosphatase 457 H Total Creatine Kinase CK-MB (Mass) Troponin I 0.0370 NT-Pro-B Natriuret Pep 1060 H Total Protein 7.5 Albumin 3.9 Globulin 3.6 Albumin/Globulin Ratio 1.1 Triglycerides Cholesterol LDL Cholesterol Direct HDL Cholesterol Lipase 583 H Urine Color Urine Clarity Urine pH Ur Specific [place] Urine Protein Urine Glucose (UA) Urine Ketones Urine Blood Urine Nitrate Urine Bilirubin Urine Urobilinogen Ur Leukocyte Esterase Urine WBC (Auto) Salicylates Urine Opiates Screen Urine Methadone Screen Acetaminophen Ur Barbiturates Screen Ur Phencyclidine Scrn Ur Amphetamines Screen U Benzodiazepines Scrn U Oth Cocaine Metabols U Cannabinoids Screen Alcohol, Quantitative 178 H Hepatitis A IgM Ab Hep Bs Antigen Hep B Core IgM Ab Hepatitis C Antibody 04/15/18 04/15/18 04/15/18 03:30 06:22 08:40 WBC RBC Hgb Hct MCV MCH MCHC RDW Plt Count MPV Neut % (Auto) Lymph % (Auto) [place] % (Auto) Eos % (Auto) Baso % (Auto) Neut # (Auto) Lymph # (Auto) [place] # (Auto) Eos # (Auto) Baso # (Auto) PT INR APTT Sodium Potassium Chloride Carbon Dioxide Anion Gap BUN Creatinine Est GFR ( Amer) Est GFR (Non-Af Amer) POC Glucose (mg/dL) 168 H Random Glucose Calcium Phosphorus Magnesium Total Bilirubin AST ALT Alkaline Phosphatase Total Creatine Kinase CK-MB (Mass) Troponin I NT-Pro-B Natriuret Pep Total Protein Albumin Globulin Albumin/Globulin Ratio Triglycerides Cholesterol LDL Cholesterol Direct HDL Cholesterol Lipase Urine Color Urine Clarity Urine pH Ur Specific [place] Urine Protein Urine Glucose (UA) Urine Ketones Urine Blood Urine Nitrate Urine Bilirubin Urine Urobilinogen Ur Leukocyte Esterase Urine WBC (Auto) Salicylates Urine Opiates Screen Negative Urine Methadone Screen Negative Acetaminophen Ur Barbiturates Screen Negative Ur Phencyclidine Scrn Negative Ur Amphetamines Screen Negative U Benzodiazepines Scrn Negative U Oth Cocaine Metabols Negative U Cannabinoids Screen Positive H Alcohol, Quantitative Hepatitis A IgM Ab Negative Hep Bs Antigen Negative Hep B Core IgM Ab Negative Hepatitis C Antibody Reactive 04/15/18 04/15/18 04/15/18 10:20 10:20 10:20 WBC RBC Hgb Hct MCV MCH MCHC RDW Plt Count MPV Neut % (Auto) Lymph % (Auto) [place] % (Auto) Eos % (Auto) Baso % (Auto) Neut # (Auto) Lymph # (Auto) [place] # (Auto) Eos # (Auto) Baso # (Auto) PT INR APTT Sodium 137 Potassium 4.1 Chloride 102 Carbon Dioxide 30 Anion Gap 10 BUN 5 L Creatinine 0.5 L Est GFR ( Amer) > 60 Est GFR (Non-Af Amer) > 60 POC Glucose (mg/dL) Random Glucose 135 H Calcium 8.3 L Phosphorus 3.7 Magnesium 1.4 L Total Bilirubin 0.8 AST 138 H ALT 103 H Alkaline Phosphatase 416 H Total Creatine Kinase 33 L 32 L CK-MB (Mass) 3.18 2.99 Troponin I 0.0320 0.0330 NT-Pro-B Natriuret Pep Total Protein 6.7 Albumin 3.4 L Globulin 3.3 Albumin/Globulin Ratio 1.1 Triglycerides Cholesterol LDL Cholesterol Direct HDL Cholesterol Lipase Urine Color Urine Clarity Urine pH Ur Specific [place] Urine Protein Urine Glucose (UA) Urine Ketones Urine Blood Urine Nitrate Urine Bilirubin Urine Urobilinogen Ur Leukocyte Esterase Urine WBC (Auto) Salicylates 2.1 Urine Opiates Screen Urine Methadone Screen Acetaminophen < 10.0 L Ur Barbiturates Screen Ur Phencyclidine Scrn Ur Amphetamines Screen U Benzodiazepines Scrn U Oth Cocaine Metabols U Cannabinoids Screen Alcohol, Quantitative Hepatitis A IgM Ab Hep Bs Antigen Hep B Core IgM Ab Hepatitis C Antibody 04/15/18 04/15/18 04/15/18 10:20 11:20 12:00 WBC RBC Hgb Hct MCV MCH MCHC RDW Plt Count MPV Neut % (Auto) Lymph % (Auto) [place] % (Auto) Eos % (Auto) Baso % (Auto) Neut # (Auto) Lymph # (Auto) [place] # (Auto) Eos # (Auto) Baso # (Auto) PT INR APTT Sodium Potassium Chloride Carbon Dioxide Anion Gap BUN Creatinine Est GFR ( Amer) Est GFR (Non-Af Amer) POC Glucose (mg/dL) 160 H Random Glucose Calcium Phosphorus Magnesium Total Bilirubin AST ALT Alkaline Phosphatase Total Creatine Kinase CK-MB (Mass) Troponin I NT-Pro-B Natriuret Pep Total Protein Albumin Globulin Albumin/Globulin Ratio Triglycerides 63 Cholesterol 162 LDL Cholesterol Direct 77 HDL Cholesterol 86 H Lipase Urine Color Straw Urine Clarity Clear Urine pH 7.0 Ur Specific [place] 1.004 Urine Protein Negative Urine Glucose (UA) Normal Urine Ketones Negative Urine Blood Negative Urine Nitrate Negative Urine Bilirubin Negative Urine Urobilinogen Normal Ur Leukocyte Esterase Neg Urine WBC (Auto) < 1 Salicylates Urine Opiates Screen Urine Methadone Screen Acetaminophen Ur Barbiturates Screen Ur Phencyclidine Scrn Ur Amphetamines Screen U Benzodiazepines Scrn U Oth Cocaine Metabols U Cannabinoids Screen Alcohol, Quantitative Hepatitis A IgM Ab Hep Bs Antigen Hep B Core IgM Ab Hepatitis C Antibody Assessment & Plan - Assessment and Plan (Free Text) Plan: Patient seen and examined at bedside Patient c/o palpitation -[facility]ISON PSYCHIATRIST awas called -HR controlled with verapamil as ?h/o coacine abuse(beta shola avoided) -Hypotension resovled -patient was on 2 acri/arb: d/c one -BP improved and HR improved. -Patient remains hemodynamically stable -f/u heart failure consult - Date & Time Date: 04/15/18 Time: 14:34
[2018-04-15 12:07] LABS: HEPATITIS C ANTIBODY REACTIVE (NEGATIVE)
--- NOTE | 2018-04-15 12:31 | US ---
Date of service: 04/15/2018 HISTORY: attention to liver COMPARISON: None. TECHNIQUE: Sonographic evaluation of the abdomen. FINDINGS: Examination limited. Patient refused a portion of the examination in the left side of the abdomen. LIVER: Measures 17.2 cm. Diffusely increased echogenicity of the liver parenchyma. Consistent with fatty infiltration. Mildly nodular contour. Possible hepatic cirrhosis. No mass. No biliary ductal dilatation. GALLBLADDER: Unremarkable. No gallstones. COMMON BILE DUCT: Measures 5 mm. No stones. No dilatation. PANCREAS: Limited visualization. RIGHT KIDNEY: Measures 10.6cm. Normal echogenicity. No calculus, mass, or hydronephrosis. LEFT KIDNEY: Patient refused examination SPLEEN: Patient refused examination AORTA: No aneurysmal dilatation. IVC: Unremarkable. OTHER FINDINGS: None. IMPRESSION: Nodular hepatic contour raising suspicion of hepatic cirrhosis. Mild fatty infiltration of the liver. No evidence of cholelithiasis or cholecystitis. No evidence of biliary obstruction. Limited examination as described
[2018-04-15] MEDS: Verapamil 180 mg ER Tab PO SCH (13:43)
--- NOTE | 2018-04-15 15:02 | RAD ---
Date of service: 04/15/2018 HISTORY: shortness of breath COMPARISON: 04/15/2018 FINDINGS: LUNGS: No active pulmonary disease. PLEURA: No significant pleural effusion identified, no pneumothorax apparent. CARDIOVASCULAR: No aortic atherosclerotic calcification present. Mild cardiomegaly. AICD. Sternotomy wires. Likely prior CABG. No pulmonary vascular congestion. OSSEOUS STRUCTURES: No significant abnormalities. VISUALIZED UPPER ABDOMEN: Normal. OTHER FINDINGS: None. IMPRESSION: No active disease.
--- NOTE | 2018-04-15 15:24 | RAD ---
Date of service: 04/15/2018 PROCEDURE: CHEST RADIOGRAPH, 1 VIEW HISTORY: chest pain COMPARISON: 08/25/2017 FINDINGS: LUNGS: Clear. PLEURA: No pneumothorax or pleural fluid seen. CARDIOVASCULAR: No aortic atherosclerotic calcification present. Normal heart size. AICD. No congestive change. OSSEOUS STRUCTURES: No significant abnormalities. VISUALIZED UPPER ABDOMEN: Normal. OTHER FINDINGS: None. IMPRESSION: No active disease.
[2018-04-15] MEDS: Albuterol-Ipratrop 3 mg / 0.5 (3 ml) UD INH SCH ×2 (16:05→19:10)
[2018-04-16] MEDS: Albuterol-Ipratrop 3 mg / 0.5 (3 ml) UD INH SCH ×7 (00:05→23:32)
--- NOTE | 2018-04-16 07:56 | CP.PCM.PN ---
Subjective - Date & Time of Evaluation Date of Evaluation: 04/16/18 Time of Evaluation: 07:52 - Subjective Subjective: Patient refused blood draw in morning. Patient has multiple episodes of ?seizures and has refused morning dose of keppra today, HR controlled, BP stable Objective - Vital Signs/Intake and Output Vital Signs (last 24 hours): Temp Pulse Resp BP Pulse Ox 98.5 F 90 19 106/65 99 04/16/18 04:00 04/16/18 04:00 04/16/18 04:00 04/16/18 03:57 04/16/18 04:00 Intake and Output: 04/16/18 04/16/18 06:59 18:59 Intake Total 350 Output Total 350 Balance 0 - Medications Medications: Current Medications Albuterol/Ipratropium (Duoneb 3 Mg/0.5 Mg (3 Ml) Ud) 3 ml INH RQ4 [facility] Last Admin: 04/16/18 04:21 Dose: 3 ml Apixaban (Eliquis) 5 mg PO BID [facility] Last Admin: 04/15/18 18:09 Dose: 5 mg Aspirin (Aspirin Chewable) 81 mg PO DAILY [facility] Last Admin: 04/15/18 10:16 Dose: 81 mg Chlordiazepoxide (Librium) 10 mg PO Q8 PRN PRN Reason: Agitation Last Admin: 04/15/18 23:49 Dose: 10 mg Dextrose (Dextrose 50% Inj) 0 ml IV STAT PRN; Protocol PRN Reason: Hypoglycemia Protocol Dextrose (Glutose 15) 0 gm PO ONCE PRN; Protocol PRN Reason: Hypoglycemia Protocol Digoxin (Lanoxin) 0.25 mg PO DAILY@1800 [facility] Folic Acid (Folic Acid) 1 mg PO DAILY [facility] Last Admin: 04/15/18 10:17 Dose: 1 mg Furosemide (Lasix) 40 mg IVP Q24H [facility] Last Admin: 04/15/18 12:00 Dose: Not Given Glucagon (Glucagen Diagnostic Kit) 0 mg IM STAT PRN; Protocol PRN Reason: Hypoglycemia Protocol Guaifenesin (Mucinex La) 600 mg PO Q12H [facility] Last Admin: 04/15/18 21:34 Dose: 600 mg Dextrose (Dextrose 5% In Water 1000 Ml) 1,000 mls @ 0 mls/hr IV .Q0M PRN; Protocol PRN Reason: Hypoglycemia Protocol Levetiracetam 500 mg/ Dextrose 105 mls @ 420 mls/hr IVPB Q12H [facility] Last Admin: 04/16/18 06:24 Dose: Not Given Insulin Human Regular (Novolin R) 0 unit SC [facility]; Protocol Last Admin: 04/15/18 21:24 Dose: Not Given Lisinopril (Zestril) 5 mg PO DAILY [facility] Last Admin: 04/15/18 10:19 Dose: 5 mg Methylprednisolone (Solu-Medrol) 40 mg IVP DAILY [facility] Last Admin: 04/15/18 10:15 Dose: 40 mg Montelukast Sodium (Singulair) 10 mg PO HS [facility] Last Admin: 04/15/18 21:34 Dose: 10 mg Rosuvastatin Calcium (Crestor) 10 mg PO [facility] Last Admin: 04/15/18 21:35 Dose: 10 mg Spironolactone (Aldactone) 25 mg PO BID [facility] Last Admin: 04/15/18 18:09 Dose: 25 mg Thiamine HCl (Vitamin B1 Tab) 100 mg PO DAILY [facility] Last Admin: 04/15/18 10:16 Dose: 100 mg Verapamil HCl (Calan Sr Tab) 180 mg PO DAILY [facility] Last Admin: 04/15/18 13:43 Dose: 180 mg - Labs Labs: 04/15/18 03:22 04/15/18 10:20 PT 10.3 SECONDS (9.7-12.2) 04/15/18 03:22 INR 0.9 04/15/18 03:22 APTT 30 SECONDS (21-34) 04/15/18 03:22 - Head Exam Head Exam: ATRAUMATIC, NORMAL INSPECTION - Eye Exam Eye Exam: EOMI Pupil Exam: PERRL - ENT Exam ENT Exam: Mucous Membranes Moist - Respiratory Exam Respiratory Exam: Clear to Ausculation Bilateral, NORMAL BREATHING PATTERN. absent: Respiratory Distress, Stridor - Cardiovascular Exam Cardiovascular Exam: Irregular Rhythm, +S1, +S2 - GI/Abdominal Exam GI & Abdominal Exam: Soft, Normal Bowel Sounds. absent: Guarding, Rigid, Tenderness, Hypoactive Bowel Sounds - Neurological Exam Neurological Exam: Alert, Awake, Oriented x3 Assessment and Plan - Assessment and Plan (Free Text) Assessment: Atrial fibrillation on Eliquis, HCV, Asthma, CHF (EF 15% s/p AICD), COPD, HTN, HLD, CAD s/p stents (RCA, 2015), polysubstance abuse, alcohol abuse brought into ED by nephew WITH sob AND svt, transferred to ICU for uncontrolle SVT h/o seizures: continue keppra (changed from oral to IV yesterday after initial episode of seizures despite taking oral dose of keppra, cehck level, pendnig EEG -SVT/A-fib: resolved: HR stable, not on amiodarone ggt, urine tox (-) cocaine, with h/o smoking tolerating oral verapamil, continue AC -COPD: continue bronchodilaors, no active wheezing -Severe systolic heart failure/CAD/EF <25%: continue heart medications as per cardiology -h/o ETOH use: continue MVI//thiamine/folate -continue oral diet -PAtient remains hemodynamically stabl.
[2018-04-16] MEDS: (Novolin R) Insulin Human Regular 100 units/ml vial SC SCH ×4 (08:00→22:00)
[2018-04-16 08:40] LABS: BASO # 0.1 K/uL (0.0-0.2); BASO % 0.5 % (0.0-2.0); EOS # 0.1 K/uL (0.0-0.7); EOS % 0.2 % (0.0-4.0); HEMOGLOBIN 10.6 g/dL (12.0-18.0); LYMPH # 2.5 K/uL (1.0-4.3); LYMPH % 10.4 % (20.0-40.0); MEAN CELL VOLUME 92.3 fL (80.0-94.0); MEAN CORPUSCULAR HGB CONC 32.5 g/dL (33.0-37.0); MEAN PLATELET VOLUME 8.3 fL (7.2-11.7); MONO # 1.8 K/uL (0.0-0.8); MONO % 7.5 % (0.0-10.0); NEUT # 19.4 K/uL (1.8-7.0); NEUT % 81.4 % (50.0-75.0); NRBC % 0.1 % (0.0-2.0); RBC 3.54 Mil/uL (4.40-5.90); RED CELL DISTRIBUTION WIDTH 16.4 % (11.5-14.5)
[2018-04-16 08:45] LABS: WHITE BLOOD COUNT 23.8 K/uL (4.8-10.8)
[2018-04-16 08:58] LABS: ALB/GLOB RATIO 1.1 (1.0-2.1); ALBUMIN 3.5 g/dL (3.5-5.0); ALT/SGPT 80 U/L (21-72); AST/SGOT 86 U/L (17-59); BLOOD UREA NITROGEN 15 mg/dL (9-20); GFR NON-AFRICAN AMERICAN > 60
[2018-04-16] MEDS: MethylPREDNISolone 40 mg Vial IVP SCH (09:23)
[2018-04-16] MEDS: guaiFENesin 600 mg ER Tab PO SCH ×2 (09:25→21:12)
[2018-04-16] MEDS: Verapamil 180 mg ER Tab PO SCH (09:25)
[2018-04-16] MEDS: Oxycodone/Acetaminophen 5/325 mg Tab PO PRN ×2 (13:42→21:11)
--- NOTE | 2018-04-16 15:11 | CP.PCM.CON ---
History of Present Illness - History of Present Illness History of Present Illness: CC: palpitations HPI: 57 man with 1. ASHD s/p CABG 2. Atrial fibrillation chronic and now stable 3. ETOH abuse poorly controlled with withdrawl seizures now on benzo taper Review of Systems - Review of Systems All systems: reviewed and no additional remarkable complaints except Review of Systems: Lethargic, shortness of breath Past Patient History - Infectious Disease Hx of Infectious Diseases: None - Tetanus Immunizations Tetanus Immunization: Unknown - Past Medical History & Family History Past Medical History?: Yes - Past Social History Smoking Status: Light Smoker < 10 Cigarettes Daily - CARDIAC Hx Atrial Fibrillation: Yes Hx Cardia Arrhythmia: Yes Hx Congestive Heart Failure: Yes Hx Hypercholesterolemia: Yes Hx Hypertension: Yes Hx Pacemaker: Yes - PULMONARY Hx Asthma: Yes Hx Chronic Obstructive Pulmonary Disease (COPD): Yes Hx Pneumonia: Yes - NEUROLOGICAL Hx Seizures: Yes - HEENT Hx HEENT Problems: No - RENAL Hx Chronic Kidney Disease: No - ENDOCRINE/METABOLIC Hx Diabetes Mellitus Type 2: Yes - HEMATOLOGICAL/ONCOLOGICAL Hx Blood Disorders: Yes - INTEGUMENTARY Hx Dermatological Problems: No - MUSCULOSKELETAL/RHEUMATOLOGICAL Hx Falls: Yes - GASTROINTESTINAL Hx Gastrointestinal Disorders: No - GENITOURINARY/GYNECOLOGICAL Hx Genitourinary Disorders: No - PSYCHIATRIC Hx Depression: Yes Hx Substance Use: Yes - SURGICAL HISTORY Hx Coronary Artery Bypass Graft: Yes (double) Hx Coronary Stent: Yes (4) - ANESTHESIA Hx Anesthesia: Yes Hx Anesthesia Reactions: No Hx Malignant Hyperthermia: No Meds Allergies/Adverse Reactions: Allergies Allergy/AdvReac Type Severity Reaction Status Date / Time No Known Allergies Allergy Verified 04/15/18 02:57 - Medications Medications: Current Medications Albuterol/Ipratropium (Duoneb 3 Mg/0.5 Mg (3 Ml) Ud) 3 ml INH RQ4 [facility] Last Admin: 04/16/18 13:25 Dose: Not Given Apixaban (Eliquis) 5 mg PO BID [facility] Last Admin: 04/16/18 09:24 Dose: 5 mg Aspirin (Aspirin Chewable) 81 mg PO DAILY [facility] Last Admin: 04/16/18 09:25 Dose: 81 mg Chlordiazepoxide (Librium) 10 mg PO Q8 PRN PRN Reason: Agitation Last Admin: 04/16/18 11:34 Dose: 10 mg Dextrose (Dextrose 50% Inj) 0 ml IV STAT PRN; Protocol PRN Reason: Hypoglycemia Protocol Dextrose (Glutose 15) 0 gm PO ONCE PRN; Protocol PRN Reason: Hypoglycemia Protocol Digoxin (Lanoxin) 0.25 mg PO DAILY@1800 [facility] Folic Acid (Folic Acid) 1 mg PO DAILY [facility] Last Admin: 04/16/18 09:23 Dose: 1 mg Furosemide (Lasix) 40 mg IVP Q24H [facility] Last Admin: 04/16/18 11:33 Dose: 40 mg Glucagon (Glucagen Diagnostic Kit) 0 mg IM STAT PRN; Protocol PRN Reason: Hypoglycemia Protocol Guaifenesin (Mucinex La) 600 mg PO Q12H [facility] Last Admin: 04/16/18 09:25 Dose: 600 mg Dextrose (Dextrose 5% In Water 1000 Ml) 1,000 mls @ 0 mls/hr IV .Q0M PRN; Protocol PRN Reason: Hypoglycemia Protocol Levetiracetam 500 mg/ Dextrose 105 mls @ 420 mls/hr IVPB Q12H [facility] Last Admin: 04/16/18 06:24 Dose: Not Given Insulin Human Regular (Novolin R) 0 unit SC [facility]; Protocol Last Admin: 04/16/18 12:30 Dose: Not Given Lisinopril (Zestril) 5 mg PO DAILY [facility] Last Admin: 04/16/18 09:24 Dose: 5 mg Methylprednisolone (Solu-Medrol) 40 mg IVP DAILY [facility] Last Admin: 04/16/18 09:23 Dose: 40 mg Montelukast Sodium (Singulair) 10 mg PO HS [facility] Last Admin: 04/15/18 21:34 Dose: 10 mg Oxycodone/Acetaminophen (Percocet 5/325 Mg Tab) 1 tab PO Q6H PRN PRN Reason: Pain, moderate (4-7) Stop: 04/19/18 13:27 Last Admin: 04/16/18 13:42 Dose: 1 tab Rosuvastatin Calcium (Crestor) 10 mg PO HS [facility] Last Admin: 04/15/18 21:35 Dose: 10 mg Spironolactone (Aldactone) 25 mg PO BID [facility] Last Admin: 04/16/18 09:25 Dose: 25 mg Thiamine HCl (Vitamin B1 Tab) 100 mg PO DAILY [facility] Last Admin: 04/16/18 09:24 Dose: 100 mg Verapamil HCl (Calan Sr Tab) 180 mg PO DAILY [facility] Last Admin: 04/16/18 09:25 Dose: 180 mg Physical Exam - Constitutional Appears: Non-toxic, Chronically Ill - Head Exam Head Exam: ATRAUMATIC, NORMAL INSPECTION - Eye Exam Eye Exam: PERRL, Scleral icterus - ENT Exam ENT Exam: Mucous Membranes Dry Additional comments: Poor dentition - Neck Exam Neck exam: Positive for: Full Rom. Negative for: Thyromegaly - Respiratory Exam Respiratory Exam: Rhonchi, Wheezes, NORMAL BREATHING PATTERN - Cardiovascular Exam Cardiovascular Exam: REGULAR RHYTHM, RRR, +S1, +S2. absent: JVD Additional comments: +Sternotomy; AICD +1 LE edema - GI/Abdominal Exam GI & Abdominal Exam: Normal Bowel Sounds. absent: Organomegaly - Neurological Exam Neurological exam: CN II-XII Intact, Oriented x3 - Psychiatric Exam Psychiatric exam: Normal Affect, Normal Mood Results - Vital Signs Recent Vital Signs: Last Vital Signs Temp 99 F 04/16/18 12:00 Pulse 98 H 04/16/18 13:56 Resp 17 04/16/18 13:56 BP 117/61 04/16/18 13:56 Pulse Ox 97 04/16/18 12:00 - Labs Result Diagrams: 04/16/18 08:34 04/16/18 08:34 Labs: Laboratory Results - last 24 hr 04/15/18 04/15/18 04/15/18 03:30 08:25 10:20 WBC RBC Hgb Hct MCV MCH MCHC RDW Plt Count MPV Neut % (Auto) Lymph % (Auto) [place] % (Auto) Eos % (Auto) Baso % (Auto) Neut # (Auto) Lymph # (Auto) [place] # (Auto) Eos # (Auto) Baso # (Auto) Sodium Potassium Chloride Carbon Dioxide Anion Gap BUN Creatinine Est GFR ( Amer) Est GFR (Non-Af Amer) POC Glucose (mg/dL) 178 H Random Glucose Hemoglobin A1c 6.9 H Calcium Phosphorus Magnesium Total Bilirubin AST ALT Alkaline Phosphatase Total Protein Albumin Globulin Albumin/Globulin Ratio Alpha Fetoprotein Procalcitonin 0.10 L 04/15/18 04/15/18 04/16/18 16:00 21:00 07:21 WBC RBC Hgb Hct MCV MCH MCHC RDW Plt Count MPV Neut % (Auto) Lymph % (Auto) [place] % (Auto) Eos % (Auto) Baso % (Auto) Neut # (Auto) Lymph # (Auto) [place] # (Auto) Eos # (Auto) Baso # (Auto) Sodium Potassium Chloride Carbon Dioxide Anion Gap BUN Creatinine Est GFR ( Amer) Est GFR (Non-Af Amer) POC Glucose (mg/dL) 163 H 166 H 105 Random Glucose Hemoglobin A1c Calcium Phosphorus Magnesium Total Bilirubin AST ALT Alkaline Phosphatase Total Protein Albumin Globulin Albumin/Globulin Ratio Alpha Fetoprotein Procalcitonin 04/16/18 04/16/18 04/16/18 08:34 08:34 08:34 WBC 23.8 H D RBC 3.54 L Hgb 10.6 L Hct 32.6 L MCV 92.3 MCH 30.0 MCHC 32.5 L RDW 16.4 H Plt Count 488 H MPV 8.3 Neut % (Auto) 81.4 H Lymph % (Auto) 10.4 L [place] % (Auto) 7.5 Eos % (Auto) 0.2 Baso % (Auto) 0.5 Neut # (Auto) 19.4 H Lymph # (Auto) 2.5 [place] # (Auto) 1.8 H Eos # (Auto) 0.1 Baso # (Auto) 0.1 Sodium 133 Potassium 3.5 L Chloride 96 L Carbon Dioxide 32 H Anion Gap 9 L BUN 15 Creatinine 0.6 L Est GFR ( Amer) > 60 Est GFR (Non-Af Amer) > 60 POC Glucose (mg/dL) Random Glucose 107 D Hemoglobin A1c Calcium 9.0 Phosphorus 4.5 Magnesium 1.7 Total Bilirubin 1.0 AST 86 H D ALT 80 H D Alkaline Phosphatase 432 H Total Protein 6.7 Albumin 3.5 Globulin 3.2 Albumin/Globulin Ratio 1.1 Alpha Fetoprotein 3.3 Procalcitonin 04/16/18 11:50 WBC RBC Hgb Hct MCV MCH MCHC RDW Plt Count MPV Neut % (Auto) Lymph % (Auto) [place] % (Auto) Eos % (Auto) Baso % (Auto) Neut # (Auto) Lymph # (Auto) [place] # (Auto) Eos # (Auto) Baso # (Auto) Sodium Potassium Chloride Carbon Dioxide Anion Gap BUN Creatinine Est GFR ( Amer) Est GFR (Non-Af Amer) POC Glucose (mg/dL) 133 H Random Glucose Hemoglobin A1c Calcium Phosphorus Magnesium Total Bilirubin AST ALT Alkaline Phosphatase Total Protein Albumin Globulin Albumin/Globulin Ratio Alpha Fetoprotein Procalcitonin - EKG Data EKG Interpreted by: Myself Rate: Tachycardia (Atrial fibrillation ) - Imaging and Cardiology Chest x-ray Status: Image reviewed by me Additional comment: No infiltrates or effusions; AICD dual chamber Assessment & Plan - Assessment and Plan (Free Text) Assessment: 57 year old man with ETOH withdrawl benzo taper Atrial fibrillation rate controlled with verapamil, digoxin; HASBLED score is elevated so anticoagulation has higher bleeding risk over CVA prophylaxsis benefits Acute on chronic systolic CHF diuresis, I would switch verpamail to carvedilol as verapamil is associated with increased morality in cardiomyopathy. Interrogate AICD to evaluate etiology of reported defibrillaiton. ASHD s/p CABG will need statin and asprin for secondary prophylaxsis Mitral valve disease s/p bioprosthetic MVR Repeat 2D echo to measure filling pressures Correct Mg > 2 and K > 4.0 Seizures on VEEG, ETOH withdrawl mediated, benzo Social work to see patient to establish a detox plan Call defibrillator company to interrogate device - Date & Time Date: 04/16/18 Time: 16:00
--- NOTE | 2018-04-16 16:03 | CP.PCM.CON ---
History of Present Illness - History of Present Illness History of Present Illness: Neurology consult called by Dr. Randall Lema. 57 yr old male who drinks alcohol and also has seizures several times a month. HE is not able to give a good history or semiology of these seizures, but several were witnessed by Dr. Carranza described as following; Shaking head, and stating "I am having a seizure". Veeg has been started with no further events. ROS: malaise, no nausea, no vomiting, no diarrhea, PMH/PSH: alcohol use FH/SH: daily alcohol use, no tobacco. unemployed. All: nkda On exam: AAOX3. PERRL. Cn 2-12 normal. EOMI motor: strength normal. sensory: intact ft, pin, position sense Cerebellar: no dysmetria. +2 dtr ul and ll bl. Toes downgoing. No clonus Gait normal. Review of Systems - Constitutional Constitutional: absent: As Per HPI, Anorexia, Chills, Daytime Sleepiness, Excessive Sweating, Fatigue, Fever, Frequent Falls, Headache, Increased Appetite, Lethargy, Malaise, Night Sweats, Snoring, Sleep Apnea, Weight Gain, Weight Loss, Weakness, Other - EENT Eyes: absent: As Per HPI, Blind Spots, Blurred Vision, Change in Vision, Decreased Night Vision, Diplopia, Discharge, Dry Eye, Exophthalmos, Floaters, Irritation, Itchy Eyes, Loss of Peripheral Vision, Pain, Photophobia, Requires Corrective Lenses, Sees Flashes, Spots in Vision, Tunnel Vision, Other Visual Disturbances, Loss of Vision, Other - Cardiovascular Cardiovascular: absent: As Per HPI, Acrocyanosis, Chest Pain, Chest Pain at Rest, Chest Pain with Activity, Claudication, Diaphoresis, Dyspnea, Dyspnea on Exertion, Edema, Irregular Heart Rhythm, Pain Radiating to Arm/Neck/Jaw, Leg E lily, Leg Ulcers, Lightheadedness, Orthopnea, Palpitations, Paroxysmal Nocturnal Dyspnea, Pedal Edema, Radiating Pain, Rapid Heart Rate, Slow Heart Rate, Syncope, Other - Respiratory Respiratory: absent: As Per HPI, Cough, Dyspnea, Hemoptysis, Dyspnea on Exerti on, Wheezing, Snoring, Stridor, Pain on Inspiration, Chest Congestion, Excessive Mucous Production, Change in Mucous Color, Pain with Coughing, Other - Neurological Neurological: absent: As Per HPI, Abnormal Gait, Abnormal Hearing, Abnormal Movements, Abnormal Speech, Behavioral Changes, Burning Sensations, Confusion, Convulsions, Disequilibrium, Dizziness, Numbness, Focal Weakness, Frequent Falls, Headaches, Lack of Coordination, Loss of Vision, Memory Loss, Paresthesias, Radicular Pain, Restless Legs, Sensory Deficit, Syncope, Tingling, Tremor, Vertigo, Weakness, Other Visual Disturbances, Other Past Patient History - Infectious Disease Hx of Infectious Diseases: None - Tetanus Immunizations Tetanus Immunization: Unknown - Past Medical History & Family History Past Medical History?: Yes - Past Social History Smoking Status: Light Smoker < 10 Cigarettes Daily - CARDIAC Hx Atrial Fibrillation: Yes Hx Cardia Arrhythmia: Yes Hx Congestive Heart Failure: Yes Hx Hypercholesterolemia: Yes Hx Hypertension: Yes Hx Pacemaker: Yes - PULMONARY Hx Asthma: Yes Hx Chronic Obstructive Pulmonary Disease (COPD): Yes Hx Pneumonia: Yes - NEUROLOGICAL Hx Seizures: Yes - HEENT Hx HEENT Problems: No - RENAL Hx Chronic Kidney Disease: No - ENDOCRINE/METABOLIC Hx Diabetes Mellitus Type 2: Yes - HEMATOLOGICAL/ONCOLOGICAL Hx Blood Disorders: Yes - INTEGUMENTARY Hx Dermatological Problems: No - MUSCULOSKELETAL/RHEUMATOLOGICAL Hx Falls: Yes - GASTROINTESTINAL Hx Gastrointestinal Disorders: No - GENITOURINARY/GYNECOLOGICAL Hx Genitourinary Disorders: No - PSYCHIATRIC Hx Depression: Yes Hx Substance Use: Yes - SURGICAL HISTORY Hx Coronary Artery Bypass Graft: Yes (double) Hx Coronary Stent: Yes (4) - ANESTHESIA Hx Anesthesia: Yes Hx Anesthesia Reactions: No Hx Malignant Hyperthermia: No Meds Allergies/Adverse Reactions: Allergies Allergy/AdvReac Type Severity Reaction Status Date / Time No Known Allergies Allergy Verified 04/15/18 02:57 - Medications Medications: Current Medications Albuterol/Ipratropium (Duoneb 3 Mg/0.5 Mg (3 Ml) Ud) 3 ml INH RQ4 [facility] Last Admin: 04/16/18 13:25 Dose: Not Given Apixaban (Eliquis) 5 mg PO BID [facility] Last Admin: 04/16/18 09:24 Dose: 5 mg Aspirin (Aspirin Chewable) 81 mg PO DAILY [facility] Last Admin: 04/16/18 09:25 Dose: 81 mg Chlordiazepoxide (Librium) 10 mg PO Q8 PRN PRN Reason: Agitation Last Admin: 04/16/18 11:34 Dose: 10 mg Dextrose (Dextrose 50% Inj) 0 ml IV STAT PRN; Protocol PRN Reason: Hypoglycemia Protocol Dextrose (Glutose 15) 0 gm PO ONCE PRN; Protocol PRN Reason: Hypoglycemia Protocol Digoxin (Lanoxin) 0.25 mg PO DAILY@1800 [facility] Folic Acid (Folic Acid) 1 mg PO DAILY [facility] Last Admin: 04/16/18 09:23 Dose: 1 mg Furosemide (Lasix) 40 mg IVP Q24H [facility] Last Admin: 04/16/18 11:33 Dose: 40 mg Glucagon (Glucagen Diagnostic Kit) 0 mg IM STAT PRN; Protocol PRN Reason: Hypoglycemia Protocol Guaifenesin (Mucinex La) 600 mg PO Q12H [facility] Last Admin: 04/16/18 09:25 Dose: 600 mg Dextrose (Dextrose 5% In Water 1000 Ml) 1,000 mls @ 0 mls/hr IV .Q0M PRN; Protocol PRN Reason: Hypoglycemia Protocol Levetiracetam 500 mg/ Dextrose 105 mls @ 420 mls/hr IVPB Q12H [facility] Last Admin: 04/16/18 06:24 Dose: Not Given Insulin Human Regular (Novolin R) 0 unit SC [facility]; Protocol Last Admin: 04/16/18 12:30 Dose: Not Given Lisinopril (Zestril) 5 mg PO DAILY [facility] Last Admin: 04/16/18 09:24 Dose: 5 mg Methylprednisolone (Solu-Medrol) 40 mg IVP DAILY [facility] Last Admin: 04/16/18 09:23 Dose: 40 mg Montelukast Sodium (Singulair) 10 mg PO [facility] Last Admin: 04/15/18 21:34 Dose: 10 mg Oxycodone/Acetaminophen (Percocet 5/325 Mg Tab) 1 tab PO Q6H PRN PRN Reason: Pain, moderate (4-7) Stop: 04/19/18 13:27 Last Admin: 04/16/18 13:42 Dose: 1 tab Rosuvastatin Calcium (Crestor) 10 mg PO [facility] Last Admin: 04/15/18 21:35 Dose: 10 mg Spironolactone (Aldactone) 25 mg PO BID [facility] Last Admin: 04/16/18 09:25 Dose: 25 mg Thiamine HCl (Vitamin B1 Tab) 100 mg PO DAILY [facility] Last Admin: 04/16/18 09:24 Dose: 100 mg Verapamil HCl (Calan Sr Tab) 180 mg PO DAILY [facility] Last Admin: 04/16/18 09:25 Dose: 180 mg Results - Vital Signs Recent Vital Signs: Last Vital Signs Temp 99 F 04/16/18 12:00 Pulse 98 H 04/16/18 13:56 Resp 17 04/16/18 13:56 BP 117/61 04/16/18 13:56 Pulse Ox 97 04/16/18 12:00 - Labs Result Diagrams: 04/16/18 08:34 04/16/18 08:34 Labs: Laboratory Results - last 24 hr 04/15/18 04/15/18 04/15/18 03:30 08:25 10:20 WBC RBC Hgb Hct MCV MCH MCHC RDW Plt Count MPV Neut % (Auto) Lymph % (Auto) [place] % (Auto) Eos % (Auto) Baso % (Auto) Neut # (Auto) Lymph # (Auto) [place] # (Auto) Eos # (Auto) Baso # (Auto) Sodium Potassium Chloride Carbon Dioxide Anion Gap BUN Creatinine Est GFR ( Amer) Est GFR (Non-Af Amer) POC Glucose (mg/dL) 178 H Random Glucose Hemoglobin A1c 6.9 H Calcium Phosphorus Magnesium Total Bilirubin AST ALT Alkaline Phosphatase Total Protein Albumin Globulin Albumin/Globulin Ratio Alpha Fetoprotein Procalcitonin 0.10 L 04/15/18 04/15/18 04/16/18 16:00 21:00 07:21 WBC RBC Hgb Hct MCV MCH MCHC RDW Plt Count MPV Neut % (Auto) Lymph % (Auto) [place] % (Auto) Eos % (Auto) Baso % (Auto) Neut # (Auto) Lymph # (Auto) [place] # (Auto) Eos # (Auto) Baso # (Auto) Sodium Potassium Chloride Carbon Dioxide Anion Gap BUN Creatinine Est GFR ( Amer) Est GFR (Non-Af Amer) POC Glucose (mg/dL) 163 H 166 H 105 Random Glucose Hemoglobin A1c Calcium Phosphorus Magnesium Total Bilirubin AST ALT Alkaline Phosphatase Total Protein Albumin Globulin Albumin/Globulin Ratio Alpha Fetoprotein Procalcitonin 04/16/18 04/16/18 04/16/18 08:34 08:34 08:34 WBC 23.8 H D RBC 3.54 L Hgb 10.6 L Hct 32.6 L MCV 92.3 MCH 30.0 MCHC 32.5 L RDW 16.4 H Plt Count 488 H MPV 8.3 Neut % (Auto) 81.4 H Lymph % (Auto) 10.4 L [place] % (Auto) 7.5 Eos % (Auto) 0.2 Baso % (Auto) 0.5 Neut # (Auto) 19.4 H Lymph # (Auto) 2.5 [place] # (Auto) 1.8 H Eos # (Auto) 0.1 Baso # (Auto) 0.1 Sodium 133 Potassium 3.5 L Chloride 96 L Carbon Dioxide 32 H Anion Gap 9 L BUN 15 Creatinine 0.6 L Est GFR ( Amer) > 60 Est GFR (Non-Af Amer) > 60 POC Glucose (mg/dL) Random Glucose 107 D Hemoglobin A1c Calcium 9.0 Phosphorus 4.5 Magnesium 1.7 Total Bilirubin 1.0 AST 86 H D ALT 80 H D Alkaline Phosphatase 432 H Total Protein 6.7 Albumin 3.5 Globulin 3.2 Albumin/Globulin Ratio 1.1 Alpha Fetoprotein 3.3 Procalcitonin 04/16/18 11:50 WBC RBC Hgb Hct MCV MCH MCHC RDW Plt Count MPV Neut % (Auto) Lymph % (Auto) [place] % (Auto) Eos % (Auto) Baso % (Auto) Neut # (Auto) Lymph # (Auto) [place] # (Auto) Eos # (Auto) Baso # (Auto) Sodium Potassium Chloride Carbon Dioxide Anion Gap BUN Creatinine Est GFR ( Amer) Est GFR (Non-Af Amer) POC Glucose (mg/dL) 133 H Random Glucose Hemoglobin A1c Calcium Phosphorus Magnesium Total Bilirubin AST ALT Alkaline Phosphatase Total Protein Albumin Globulin Albumin/Globulin Ratio Alpha Fetoprotein Procalcitonin Assessment & Plan - Assessment and Plan (Free Text) Assessment: 57 yr old male with 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 We will attempt to capture events. For now we will not start antiepileptic medications. Thank you Dr. [facility]
[2018-04-16] MEDS: Digoxin 250 mcg (0.25 mg) Tab PO SCH (17:14)
[2018-04-17] MEDS: Albuterol-Ipratrop 3 mg / 0.5 (3 ml) UD INH SCH ×5 (03:10→19:57)
[2018-04-17] MEDS: Oxycodone/Acetaminophen 5/325 mg Tab PO PRN ×3 (04:47→21:37)
[2018-04-17 05:33] LABS: BASO # 0.1 K/uL (0.0-0.2); BASO % 0.7 % (0.0-2.0); EOS # 0.1 K/uL (0.0-0.7); EOS % 0.7 % (0.0-4.0); HEMOGLOBIN 10.8 g/dL (12.0-18.0); LYMPH # 1.7 K/uL (1.0-4.3); LYMPH % 7.9 % (20.0-40.0); MEAN CORPUSCULAR HEMOGLOBIN 30.4 pg (27.0-31.0); MEAN CORPUSCULAR HGB CONC 32.7 g/dL (33.0-37.0); MEAN PLATELET VOLUME 9.3 fL (7.2-11.7); MONO # 1.5 K/uL (0.0-0.8); NEUT # 17.6 K/uL (1.8-7.0); NEUT % 83.7 % (50.0-75.0); NRBC % 0.1 % (0.0-2.0); PLATELET COUNT 470 K/uL (130-400); RBC 3.54 Mil/uL (4.40-5.90)
[2018-04-17 06:08] LABS: ALBUMIN 3.7 g/dL (3.5-5.0); ALT/SGPT 56 U/L (21-72); AST/SGOT 115 U/L (17-59); BLOOD UREA NITROGEN 14 mg/dL (9-20); CALCIUM 8.3 mg/dl (8.6-10.4); GFR NON-AFRICAN AMERICAN > 60
[2018-04-17] MEDS: (Novolin R) Insulin Human Regular 100 units/ml vial SC SCH ×4 (07:30→21:39)
[2018-04-17] MEDS: Magnesium Sulfate 1 gm in D5W 1 GM/100 ML BAG IVPB SCH ×2 (07:51→08:41)
[2018-04-17 08:48] LABS: EOSINOPHIL 1 % (0-4); LYMPHOCYTE 8 % (20-40); MONOCYTE 7 % (0-10); NEUTROPHIL 84 % (50-75); TOTAL CELLS COUNTED 100
[2018-04-17 08:49] LABS: ANISOCYTOSIS SLIGHT; HYPOCHROMIC SLIGHT; LARGE PLATELETS PRESENT; MICROCYTOSIS SLIGHT; OVALOCYTES SLIGHT; PLATELET ESTIMATE INCREASED (NORMAL); POIKILOCYTOSIS SLIGHT
--- NOTE | 2018-04-17 08:57 | CP.CCUPN ---
CCU Subjective - Physician Review Subjective (Free Text): Critical care progress note for Dr. Rodriguez. Patient seen and examined at bedside. No acute events overnight. Patient had ? seizure over weekend and now is on a video eeg. Patient is stating his left arm hurts with ribs. Patient states pain began s/p fall following seizure on tuesday. Patient has no other complaints. Denies chest pain, SOB, nausea, vomiting, headaches, dizziness. CCU Objective - Vital Signs / Intake & Output Vital Signs (Last 4 hours): Vital Signs Temp Pulse Resp BP 04/17/18 08:00 100.1 F H 04/17/18 07:56 107 H 14 102/64 04/17/18 06:00 104 H 18 04/17/18 05:00 90 17 Intake and Output (Last 8hrs): Intake & Output 04/16/18 04/17/18 04/17/18 22:59 06:59 14:59 Intake Total 405 0 Output Total 900 350 Balance -495 -350 Intake: Oral 405 0 Output: Urine 900 350 Urine, Voided 900 350 Other: # Voids Urine, Voided 2 - Physical Exam Head: Positive for: Atraumatic, Normocephalic Extroacular Muscles: Positive for: EOMI Conjunctiva: Positive for: Normal Mouth: Positive for: Moist Mucous Membranes Respiratory/Chest: Positive for: Clear to Auscultation, Good Air Exchange. Negative for: Accessory Muscle Use Cardiovascular: Positive for: Normal S1, S2 Abdomen: Positive for: Normal Bowel Sounds. Negative for: Tenderness, Distention Upper Extremity: Positive for: Other (tenderness at glenoralhumural joint. Mild swelling. ) Lower Extremity: Positive for: Normal Inspection. Negative for: Edema Skin: Positive for: Warm, Dry Psychiatric: Positive for: Alert, Oriented x 3 - Medications Active Medications: Active Medications Generic Name Dose Route Start Last Admin Trade Name Freq PRN Reason Stop Dose Admin Albuterol/Ipratropium 3 ml 04/15/18 06:04 04/17/18 07:51 Duoneb 3 Mg/0.5 Mg (3 Ml) Ud INH 3 ml RQ4 PATIENCE Administration Apixaban 5 mg 04/15/18 10:00 04/16/18 17:14 Eliquis PO 5 mg BID PATIENCE Administration Aspirin 81 mg 04/15/18 10:00 04/16/18 09:25 Aspirin Chewable PO 81 mg DAILY PATIENCE Administration Chlordiazepoxide 10 mg 04/15/18 22:34 04/16/18 11:34 Librium PO 10 mg Q8 PRN Administration Agitation Dextrose 0 ml 04/15/18 05:04 Dextrose 50% Inj IV STAT PRN Hypoglycemia Protocol Protocol Dextrose 0 gm 04/15/18 04:59 Glutose 15 PO ONCE PRN Hypoglycemia Protocol Protocol Digoxin 0.25 mg 04/16/18 18:00 04/16/18 17:14 Lanoxin PO 0.25 mg DAILY@1800 PATIENCE Administration Folic Acid 1 mg 04/15/18 10:00 04/16/18 09:23 Folic Acid PO 1 mg DAILY PATIENCE Administration Furosemide 40 mg 04/15/18 12:00 04/16/18 11:33 Lasix IVP 40 mg Q24H PATIENCE Administration Glucagon 0 mg 04/15/18 04:59 Glucagen Diagnostic Kit IM STAT PRN Hypoglycemia Protocol Protocol Guaifenesin 600 mg 04/15/18 09:00 04/16/18 21:12 Mucinex La PO 600 mg Q12H PATIENCE Administration Dextrose 1,000 mls @ 0 mls/hr 04/15/18 04:59 Dextrose 5% In Water 1000 Ml IV .Q0M PRN Hypoglycemia Protocol Protocol Per Protocol Levetiracetam 500 mg/ Dextrose 105 mls @ 420 mls/hr 04/15/18 18:15 04/17/18 05:28 IVPB 420 mls/hr Q12H PATIENCE Administration Insulin Human Regular 0 unit 04/15/18 07:30 04/16/18 22:00 Novolin R SC Not Given ACHS PATIENCE Protocol Lisinopril 5 mg 04/15/18 10:00 04/16/18 09:24 Zestril PO 5 mg DAILY PATIENCE Administration Methylprednisolone 40 mg 04/15/18 10:00 04/16/18 09:23 Solu-Medrol IVP 40 mg DAILY PATIENCE Administration Montelukast Sodium 10 mg 04/15/18 22:00 04/16/18 21:10 Singulair PO 10 mg HS PATIENCE Administration Oxycodone/Acetaminophen 1 tab 04/16/18 13:26 04/17/18 04:47 Percocet 5/325 Mg Tab PO 04/19/18 13:27 1 tab Q6H PRN Administration Pain, moderate (4-7) Rosuvastatin Calcium 10 mg 04/15/18 22:00 04/16/18 21:10 Crestor PO 10 mg HS PATIENCE Administration Spironolactone 25 mg 04/15/18 10:00 04/16/18 17:14 Aldactone PO 25 mg BID PATIENCE Administration Thiamine HCl 100 mg 04/15/18 10:00 04/16/18 09:24 Vitamin B1 Tab PO 100 mg DAILY PATIENCE Administration Verapamil HCl 180 mg 04/15/18 13:00 04/16/18 09:25 Calan Sr Tab PO 180 mg DAILY PATIENCE Administration - Patient Studies Lab Studies: Lab Studies 04/17/18 04/17/18 04/17/18 Range/Units 07:17 05:26 05:26 WBC 21.0 H (4.8-10.8) K/uL RBC 3.54 L (4.40-5.90) Mil/uL Hgb 10.8 L (12.0-18.0) g/dL Hct 32.9 L (35.0-51.0) % MCV 93.0 (80.0-94.0) fL MCH 30.4 (27.0-31.0) pg MCHC 32.7 L (33.0-37.0) g/dL RDW 17.0 H (11.5-14.5) % Plt Count 470 H (130-400) K/uL MPV 9.3 (7.2-11.7) fL Neut % (Auto) 83.7 H (50.0-75.0) % Lymph % (Auto) 7.9 L (20.0-40.0) % [place] % (Auto) 7.0 (0.0-10.0) % Eos % (Auto) 0.7 (0.0-4.0) % Baso % (Auto) 0.7 (0.0-2.0) % Neut # (Auto) 17.6 H (1.8-7.0) K/uL Lymph # (Auto) 1.7 (1.0-4.3) K/uL [place] # (Auto) 1.5 H (0.0-0.8) K/uL Eos # (Auto) 0.1 (0.0-0.7) K/uL Baso # (Auto) 0.1 (0.0-0.2) K/uL Neutrophils % (Manual) 84 H (50-75) % Lymphocytes % (Manual) 8 L (20-40) % Monocytes % (Manual) 7 (0-10) % Eosinophils % (Manual) 1 (0-4) % Platelet Estimate Increased H (NORMAL) Large Platelets Present Hypochromasia (manual) Slight Poikilocytosis (manual Slight Anisocytosis (manual) Slight Microcytosis (manual) Slight Ovalocytes Slight Sodium 130 L (132-148) mmol/L Potassium 5.2 (3.6-5.2) mmol/L Chloride 97 L (98-107) mmol/L Carbon Dioxide 30 (22-30) mmol/L Anion Gap 9 L (10-20) BUN 14 (9-20) mg/dL Creatinine 0.6 L (0.8-1.5) mg/dL Est GFR ( Amer) > 60 Est GFR (Non-Af Amer) > 60 POC Glucose (mg/dL) 111 H (65-110) mg/dL Random Glucose 86 (75-110) mg/dL Hemoglobin A1c (4.2-6.5) % Calcium 8.3 L (8.6-10.4) mg/dl Phosphorus 4.2 (2.5-4.5) mg/dL Magnesium 1.5 L (1.6-2.3) mg/dL Total Bilirubin 1.7 H (0.2-1.3) mg/dL AST 115 H D (17-59) U/L ALT 56 (21-72) U/L Alkaline Phosphatase 333 H D (38-126) U/L Total Protein 7.3 (6.3-8.3) g/dL Albumin 3.7 (3.5-5.0) g/dL Globulin 3.6 (2.2-3.9) gm/dL Albumin/Globulin Ratio 1.0 (1.0-2.1) Alpha Fetoprotein (0.0-7.5) ng/mL 04/16/18 04/16/18 04/16/18 Range/Units 19:59 16:06 11:50 WBC (4.8-10.8) K/uL RBC (4.40-5.90) Mil/uL Hgb (12.0-18.0) g/dL Hct (35.0-51.0) % MCV (80.0-94.0) fL MCH (27.0-31.0) pg MCHC (33.0-37.0) g/dL RDW (11.5-14.5) % Plt Count (130-400) K/uL MPV (7.2-11.7) fL Neut % (Auto) (50.0-75.0) % Lymph % (Auto) (20.0-40.0) % [place] % (Auto) (0.0-10.0) % Eos % (Auto) (0.0-4.0) % Baso % (Auto) (0.0-2.0) % Neut # (Auto) (1.8-7.0) K/uL Lymph # (Auto) (1.0-4.3) K/uL [place] # (Auto) (0.0-0.8) K/uL Eos # (Auto) (0.0-0.7) K/uL Baso # (Auto) (0.0-0.2) K/uL Neutrophils % (Manual) (50-75) % Lymphocytes % (Manual) (20-40) % Monocytes % (Manual) (0-10) % Eosinophils % (Manual) (0-4) % Platelet Estimate (NORMAL) Large Platelets Hypochromasia (manual) Poikilocytosis (manual Anisocytosis (manual) Microcytosis (manual) Ovalocytes Sodium (132-148) mmol/L Potassium (3.6-5.2) mmol/L Chloride (98-107) mmol/L Carbon Dioxide (22-30) mmol/L Anion Gap (10-20) BUN (9-20) mg/dL Creatinine (0.8-1.5) mg/dL Est GFR ( Amer) Est GFR (Non-Af Amer) POC Glucose (mg/dL) 126 H 194 H 133 H (65-110) mg/dL Random Glucose (75-110) mg/dL Hemoglobin A1c (4.2-6.5) % Calcium (8.6-10.4) mg/dl Phosphorus (2.5-4.5) mg/dL Magnesium (1.6-2.3) mg/dL Total Bilirubin (0.2-1.3) mg/dL AST (17-59) U/L ALT (21-72) U/L Alkaline Phosphatase (38-126) U/L Total Protein (6.3-8.3) g/dL Albumin (3.5-5.0) g/dL Globulin (2.2-3.9) gm/dL Albumin/Globulin Ratio (1.0-2.1) Alpha Fetoprotein (0.0-7.5) ng/mL 04/16/18 04/16/18 04/15/18 Range/Units 08:34 08:34 03:30 WBC (4.8-10.8) K/uL RBC (4.40-5.90) Mil/uL Hgb (12.0-18.0) g/dL Hct (35.0-51.0) % MCV (80.0-94.0) fL MCH (27.0-31.0) pg MCHC (33.0-37.0) g/dL RDW (11.5-14.5) % Plt Count (130-400) K/uL MPV (7.2-11.7) fL Neut % (Auto) (50.0-75.0) % Lymph % (Auto) (20.0-40.0) % [place] % (Auto) (0.0-10.0) % Eos % (Auto) (0.0-4.0) % Baso % (Auto) (0.0-2.0) % Neut # (Auto) (1.8-7.0) K/uL Lymph # (Auto) (1.0-4.3) K/uL [place] # (Auto) (0.0-0.8) K/uL Eos # (Auto) (0.0-0.7) K/uL Baso # (Auto) (0.0-0.2) K/uL Neutrophils % (Manual) (50-75) % Lymphocytes % (Manual) (20-40) % Monocytes % (Manual) (0-10) % Eosinophils % (Manual) (0-4) % Platelet Estimate (NORMAL) Large Platelets Hypochromasia (manual) Poikilocytosis (manual Anisocytosis (manual) Microcytosis (manual) Ovalocytes Sodium 133 (132-148) mmol/L Potassium 3.5 L (3.6-5.2) mmol/L Chloride 96 L (98-107) mmol/L Carbon Dioxide 32 H (22-30) mmol/L Anion Gap 9 L (10-20) BUN 15 (9-20) mg/dL Creatinine 0.6 L (0.8-1.5) mg/dL Est GFR ( Amer) > 60 Est GFR (Non-Af Amer) > 60 POC Glucose (mg/dL) (65-110) mg/dL Random Glucose 107 D (75-110) mg/dL Hemoglobin A1c 6.9 H (4.2-6.5) % Calcium 9.0 (8.6-10.4) mg/dl Phosphorus 4.5 (2.5-4.5) mg/dL Magnesium 1.7 (1.6-2.3) mg/dL Total Bilirubin 1.0 (0.2-1.3) mg/dL AST 86 H D (17-59) U/L ALT 80 H D (21-72) U/L Alkaline Phosphatase 432 H (38-126) U/L Total Protein 6.7 (6.3-8.3) g/dL Albumin 3.5 (3.5-5.0) g/dL Globulin 3.2 (2.2-3.9) gm/dL Albumin/Globulin Ratio 1.1 (1.0-2.1) Alpha Fetoprotein 3.3 (0.0-7.5) ng/mL Laboratory Results - last 24 hr 04/15/18 04/16/18 04/16/18 03:30 08:34 08:34 WBC RBC Hgb Hct MCV MCH MCHC RDW Plt Count MPV Neut % (Auto) Lymph % (Auto) [place] % (Auto) Eos % (Auto) Baso % (Auto) Neut # (Auto) Lymph # (Auto) [place] # (Auto) Eos # (Auto) Baso # (Auto) Neutrophils % (Manual) Lymphocytes % (Manual) Monocytes % (Manual) Eosinophils % (Manual) Platelet Estimate Large Platelets Hypochromasia (manual) Poikilocytosis (manual Anisocytosis (manual) Microcytosis (manual) Ovalocytes Sodium 133 Potassium 3.5 L Chloride 96 L Carbon Dioxide 32 H Anion Gap 9 L BUN 15 Creatinine 0.6 L Est GFR ( Amer) > 60 Est GFR (Non-Af Amer) > 60 POC Glucose (mg/dL) Random Glucose 107 D Hemoglobin A1c 6.9 H Calcium 9.0 Phosphorus 4.5 Magnesium 1.7 Total Bilirubin 1.0 AST 86 H D ALT 80 H D Alkaline Phosphatase 432 H Total Protein 6.7 Albumin 3.5 Globulin 3.2 Albumin/Globulin Ratio 1.1 Alpha Fetoprotein 3.3 04/16/18 04/16/18 04/16/18 11:50 16:06 19:59 WBC RBC Hgb Hct MCV MCH MCHC RDW Plt Count MPV Neut % (Auto) Lymph % (Auto) [place] % (Auto) Eos % (Auto) Baso % (Auto) Neut # (Auto) Lymph # (Auto) [place] # (Auto) Eos # (Auto) Baso # (Auto) Neutrophils % (Manual) Lymphocytes % (Manual) Monocytes % (Manual) Eosinophils % (Manual) Platelet Estimate Large Platelets Hypochromasia (manual) Poikilocytosis (manual Anisocytosis (manual) Microcytosis (manual) Ovalocytes Sodium Potassium Chloride Carbon Dioxide Anion Gap BUN Creatinine Est GFR ( Amer) Est GFR (Non-Af Amer) POC Glucose (mg/dL) 133 H 194 H 126 H Random Glucose Hemoglobin A1c Calcium Phosphorus Magnesium Total Bilirubin AST ALT Alkaline Phosphatase Total Protein Albumin Globulin Albumin/Globulin Ratio Alpha Fetoprotein 04/17/18 04/17/18 04/17/18 05:26 05:26 07:17 WBC 21.0 H RBC 3.54 L Hgb 10.8 L Hct 32.9 L MCV 93.0 MCH 30.4 MCHC 32.7 L RDW 17.0 H Plt Count 470 H MPV 9.3 Neut % (Auto) 83.7 H Lymph % (Auto) 7.9 L [place] % (Auto) 7.0 Eos % (Auto) 0.7 Baso % (Auto) 0.7 Neut # (Auto) 17.6 H Lymph # (Auto) 1.7 [place] # (Auto) 1.5 H Eos # (Auto) 0.1 Baso # (Auto) 0.1 Neutrophils % (Manual) 84 H Lymphocytes % (Manual) 8 L Monocytes % (Manual) 7 Eosinophils % (Manual) 1 Platelet Estimate Increased H Large Platelets Present Hypochromasia (manual) Slight Poikilocytosis (manual Slight Anisocytosis (manual) Slight Microcytosis (manual) Slight Ovalocytes Slight Sodium 130 L Potassium 5.2 Chloride 97 L Carbon Dioxide 30 Anion Gap 9 L BUN 14 Creatinine 0.6 L Est GFR ( Amer) > 60 Est GFR (Non-Af Amer) > 60 POC Glucose (mg/dL) 111 H Random Glucose 86 Hemoglobin A1c Calcium 8.3 L Phosphorus 4.2 Magnesium 1.5 L Total Bilirubin 1.7 H AST 115 H D ALT 56 Alkaline Phosphatase 333 H D Total Protein 7.3 Albumin 3.7 Globulin 3.6 Albumin/Globulin Ratio 1.0 Alpha Fetoprotein Fingerstick Blood Sugar Results: 126 Review of Systems - Constitutional Constitutional: absent: Chills, Sweats, Weakness - EENT Eyes: UNREMARKABLE Ears: UNREMARKABLE Nose/Mouth/Throat: UNREMARKABLE - Cardiovascular Cardiovascular: UNREMARKABLE - Respiratory Respiratory: UNREMARKABLE - Gastrointestinal Gastrointestinal: UNREMARKABLE - Genitourinary Genitourinary: UNREMARKABLE. absent: Pyuria, Nocturia - Musculoskeletal Musculoskeletal: UNREMARKABLE. absent: Myalgias Additional comments: L arm/shoulder pain, L rib pain - Integumentary Integumentary: UNREMARKABLE - Neurological Neurological: UNREMARKABLE. absent: Dizziness, Numbness, Headaches - Endocrine Endocrine: UNREMARKABLE - Hematologic/Lymphatic Hematologic: UNREMARKABLE Critical Care Progress Note - Extremities/Vascular Does the Patient have a Central Venous Catheter?: No Does the Patient need a Central Venous Catheter?: No Does the Patient have a Story Catheter?: No Does the Patient need a Story Catheter?: No - Prophylaxis GI Prophylaxis GI: PPI - Prophylaxis DVT Prophylaxis DVT: Not Indicated - Nutrition Nutrition: Nutrition Category Date Time Status Heart Healthy Diet [DIET] Diets 04/15/18 Breakfast Active Assessment/Plan - Assessment and Plan (Free Text) Assessment: 57 M hx of afib, HCV, CHF , EF 15% w/ AICD, seizures s/p runs of SVT requiring 6,6,12 adenosine, s/p seizures, currently on keppra & video EEG, Plan: Neuro - A&O x3 - hx of seizures - F/u video EEG - c/w keppra 500 BID - seizure precautions Cardio - hx of EF 15%, AICD, afib, CAD s/p stents - c/w aldactone 25 mg BID, Lisinopril 5mg PO daily, digoxin 0.25 mg PO daily, aspirin 81 mg daily, crestor 10 mg Po HS - stop verapimil 04/18, start coreg 3.125 mg PO BID Pulm - hx of COPD - c/w singular 10mg HS, duonebs Q4H, methylprednisone 20mg daily - f/u Shoulder/rib xray GI - alcohol use disorder: daily thiamine, folic acid, multivitamin - librium taper - - heart healthy diet - Hep C +, U/S cirrhotic liver Renal - BUN/Cr 14/0.6 - replenish electrolytes as need Endo - hx of diabetes - ISS QHS - Accuchecks QHS ID - WBC 20s, afebrile - likely secondary to steroid use PPx - DVT: SDS/ eliquis - GI: pepcid 20mg daily
[2018-04-17] MEDS: guaiFENesin 600 mg ER Tab PO SCH ×2 (09:37→21:42)
[2018-04-17] MEDS: Verapamil 180 mg ER Tab PO SCH (09:38)
[2018-04-17] MEDS: MethylPREDNISolone 40 mg Vial IVP SCH ×2 (09:38→10:00)
[2018-04-17] MEDS: guaiFENesin DM 100 mg-10 mg/5 ml UD PO PRN ×2 (14:54→23:05)
--- NOTE | 2018-04-17 17:19 | CP.PCM.PN ---
Subjective - Date & Time of Evaluation Date of Evaluation: 04/17/18 Time of Evaluation: 17:18 - Subjective Subjective: Neuro Follow-Up Note: Mr. Fitzgerald was evaluated this afternoon in the ICU. VEEG was discontinued earlier this afternoon. Pt complains of left shoulder pain (rates 5/10) from his recent fall, but overall he is feeling fine. Pt admits to a history of seizures; states he was officially diagnosed with them a while ago (cannot recall who diagnosed them); takes Keppra at home for seizures. Per the pt he doesn't follow up with any one particular provider for his refills; admits to going to various ERs for refills after he has had a seizure from running out of his meds. Denies h/a, dizziness, visual changes, chest pain, sob, abd pain, n/v/d, seizure activity. Objective - Vital Signs/Intake and Output Vital Signs (last 24 hours): Temp Pulse Resp BP Pulse Ox 98 F 84 15 102/58 L 94 L 04/17/18 15:47 04/17/18 15:56 04/17/18 15:56 04/17/18 15:56 04/17/18 15:47 Intake and Output: 04/17/18 04/17/18 06:59 18:59 Intake Total 180 800 Output Total 550 1150 Balance -370 -350 - Medications Medications: Current Medications Albuterol/Ipratropium (Duoneb 3 Mg/0.5 Mg (3 Ml) Ud) 3 ml INH RQ4 [facility] Last Admin: 04/17/18 16:27 Dose: 3 ml Apixaban (Eliquis) 5 mg PO BID [facility] Last Admin: 04/17/18 09:37 Dose: 5 mg Aspirin (Aspirin Chewable) 81 mg PO DAILY [facility] Last Admin: 04/17/18 09:37 Dose: 81 mg Carvedilol (Coreg) 3.125 mg PO BID [facility] Chlordiazepoxide (Librium) 10 mg PO Q8 PRN PRN Reason: Agitation Last Admin: 04/16/18 11:34 Dose: 10 mg Chlordiazepoxide (Librium) 5 mg PO Q6 [facility]; Taper Stop: 04/21/18 11:59 Last Admin: 04/17/18 12:06 Dose: 5 mg Dextrose (Dextrose 50% Inj) 0 ml IV STAT PRN; Protocol PRN Reason: Hypoglycemia Protocol Dextrose (Glutose 15) 0 gm PO ONCE PRN; Protocol PRN Reason: Hypoglycemia Protocol Digoxin (Lanoxin) 0.25 mg PO DAILY@1800 [facility] Last Admin: 04/16/18 17:14 Dose: 0.25 mg Famotidine (Pepcid) 20 mg PO DAILY [facility] Folic Acid (Folic Acid) 1 mg PO DAILY [facility] Last Admin: 04/17/18 09:37 Dose: 1 mg Furosemide (Lasix) 40 mg IVP Q24H [facility] Last Admin: 04/17/18 12:06 Dose: 40 mg Glucagon (Glucagen Diagnostic Kit) 0 mg IM STAT PRN; Protocol PRN Reason: Hypoglycemia Protocol Guaifenesin (Mucinex La) 600 mg PO Q12H [facility] Last Admin: 04/17/18 09:37 Dose: 600 mg Guaifenesin/Dextromethorphan (Robitussin Dm) 5 ml PO Q4H PRN PRN Reason: Cough Last Admin: 04/17/18 14:54 Dose: 5 ml Dextrose (Dextrose 5% In Water 1000 Ml) 1,000 mls @ 0 mls/hr IV .Q0M PRN; Protocol PRN Reason: Hypoglycemia Protocol Levetiracetam 500 mg/ Dextrose 105 mls @ 420 mls/hr IVPB Q12H [facility] Last Admin: 04/17/18 05:28 Dose: 420 mls/hr Insulin Human Regular (Novolin R) 0 unit SC [facility]; Protocol Last Admin: 04/17/18 16:39 Dose: 4 u Lisinopril (Zestril) 5 mg PO DAILY [facility] Last Admin: 04/17/18 09:38 Dose: 5 mg Methylprednisolone (Solu-Medrol) 20 mg IVP DAILY [facility] Last Admin: 04/17/18 10:00 Dose: Not Given Montelukast Sodium (Singulair) 10 mg PO [facility] Last Admin: 04/16/18 21:10 Dose: 10 mg Oxycodone/Acetaminophen (Percocet 5/325 Mg Tab) 1 tab PO Q6H PRN PRN Reason: Pain, moderate (4-7) Stop: 04/19/18 13:27 Last Admin: 04/17/18 13:29 Dose: 1 tab Rosuvastatin Calcium (Crestor) 10 mg PO [facility] Last Admin: 04/16/18 21:10 Dose: 10 mg Spironolactone (Aldactone) 25 mg PO BID [facility] Last Admin: 04/17/18 09:38 Dose: 25 mg Thiamine HCl (Vitamin B1 Tab) 100 mg PO DAILY [facility] Last Admin: 04/17/18 09:38 Dose: 100 mg - Labs Labs: 04/17/18 05:26 04/17/18 05:26 PT 10.3 SECONDS (9.7-12.2) 04/15/18 03:22 INR 0.9 04/15/18 03:22 APTT 30 SECONDS (21-34) 04/15/18 03:22 - Constitutional Appears: Well, Non-toxic - Head Exam Head Exam: ATRAUMATIC, NORMAL INSPECTION, NORMOCEPHALIC - Eye Exam Eye Exam: EOMI, Normal appearance, PERRL Pupil Exam: NORMAL ACCOMODATION, PERRL - ENT Exam ENT Exam: Mucous Membranes Moist - Neck Exam Neck Exam: Full ROM, Normal Inspection - Respiratory Exam Respiratory Exam: NORMAL BREATHING PATTERN - Extremities Exam Additional comments: Decreased ROM to LUE 2/2 shoulder pain - Neurological Exam Neurological Exam: Alert, Awake, CN II-XII Intact, Reflexes Normal Neuro motor strength exam: Left Upper Extremity: 4, Right Upper Extremity: 5, Left Lower Extremity: 5, Right Lower Extremity: 5 Additional comments: Speech clear Follows all commands Moves all extremities; decreased ROM to LUE 2/2 shoulder pain. No sensory deficits. No tremors; no abnormal jerky movements noted Gait not assessed. - Psychiatric Exam Psychiatric exam: Normal Affect, Normal Mood - Skin Skin Exam: Normal Color Assessment and Plan (1) Seizure Assessment & Plan: No imaging done to review. -VEEG x24 hours completed this afternoon--will f/u with results. -Continue Keppra 500 mg IV Q12 as started by ICU ream. -Continue seizure precautions. -Recommended to pt to follow up with Dr. Jackson once he is d/c from the hospital for management of seizures as outpatient. -Notify neuro team of any acute changes in pt's condition. Jenni Chappell DNP, [facility] Case discussed with Dr. Fernandez Status: Acute
[2018-04-17] MEDS: Digoxin 250 mcg (0.25 mg) Tab PO SCH (18:04)
--- NOTE | 2018-04-17 18:14 | RAD ---
Date of service: 04/17/2018 PROCEDURE: <SHOULDER LEFT> HISTORY: s/p fall, pain COMPARISON: None FINDINGS: BONES: There is an acute comminuted nondisplaced fracture in the greater tuberosity of the humerus. Bone alignment and mineralization are normal. JOINTS: The glenohumeral and acromioclavicular joints are preserved. No significant degenerative osteoarthrosis. SOFT TISSUES: Normal. OTHER FINDINGS: None. IMPRESSION: Acute comminuted nondisplaced fracture in the greater tuberosity of the humerus. No dislocation.
--- NOTE | 2018-04-17 18:17 | RAD ---
Date of service: 04/17/2018 PROCEDURE: Radiographs of the Chest and Left Ribs. HISTORY: s/p fall,pain COMPARISON: None available. TECHNIQUE: Frontal radiograph of the chest and multiple oblique radiographs of the left ribs were obtained. FINDINGS: LEFT RIBS: There are subacute healing fractures in the LUNGS: The lungs are well inflated. There is moderate pulmonary venous congestion. PLEURA: No pneumothorax or pleural fluid. CARDIOVASCULAR: Severe cardiomegaly. Status post CABG. There is a left-sided unipolar permanent pacing device. No aortic atherosclerotic calcification present OTHER FINDINGS: There are multiple surgical clips in the left upper quadrant. Lateral 8th and 9th ribs. IMPRESSION: 1. Subacute healing fractures in the left lateral 8th and 9th ribs. 2. Severe cardiomegaly and moderate pulmonary venous congestion.
[2018-04-18] MEDS: Albuterol-Ipratrop 3 mg / 0.5 (3 ml) UD INH SCH ×6 (00:09→19:41)
[2018-04-18] MEDS: Oxycodone/Acetaminophen 5/325 mg Tab PO PRN ×3 (04:21→20:58)
[2018-04-18] MEDS: guaiFENesin DM 100 mg-10 mg/5 ml UD PO PRN ×3 (05:36→21:00)
[2018-04-18 06:03] LABS: BASO # 0.1 K/uL (0.0-0.2); BASO % 0.2 % (0.0-2.0); HEMOGLOBIN 10.8 g/dL (12.0-18.0); LYMPH # 1.5 K/uL (1.0-4.3); LYMPH % 5.7 % (20.0-40.0); MEAN CELL VOLUME 92.8 fL (80.0-94.0); MEAN CORPUSCULAR HEMOGLOBIN 29.5 pg (27.0-31.0); MEAN CORPUSCULAR HGB CONC 31.8 g/dL (33.0-37.0); MEAN PLATELET VOLUME 8.9 fL (7.2-11.7); MONO # 1.9 K/uL (0.0-0.8); MONO % 7.6 % (0.0-10.0); NEUT # 22.3 K/uL (1.8-7.0); NEUT % 86.5 % (50.0-75.0); PLATELET COUNT 415 K/uL (130-400); RBC 3.67 Mil/uL (4.40-5.90); RED CELL DISTRIBUTION WIDTH 16.3 % (11.5-14.5); WHITE BLOOD COUNT 25.8 K/uL (4.8-10.8)
[2018-04-18 06:18] LABS: ALB/GLOB RATIO 1.1 (1.0-2.1); ALBUMIN 3.2 g/dL (3.5-5.0); ALT/SGPT 52 U/L (21-72); AST/SGOT 63 U/L (17-59); BLOOD UREA NITROGEN 16 mg/dL (9-20); CALCIUM 8.2 mg/dl (8.6-10.4); GFR NON-AFRICAN AMERICAN > 60
[2018-04-18] MEDS: (Novolin R) Insulin Human Regular 100 units/ml vial SC SCH ×4 (07:30→22:00)
[2018-04-18 08:26] LABS: LYMPHOCYTE 5 % (20-40); MONOCYTE 8 % (0-10); NEUTROPHIL 87 % (50-75); NUCLEATED RED BLOOD CELL 1 % (0-0); TOTAL CELLS COUNTED 100
[2018-04-18 08:27] LABS: ANISOCYTOSIS SLIGHT; BURR CELLS SLIGHT; HYPOCHROMIC SLIGHT; OVALOCYTES SLIGHT; POIKILOCYTOSIS SLIGHT
[2018-04-18 08:28] LABS: LARGE PLATELETS PRESENT; PLATELET ESTIMATE SLIGHTLY INCREASED (NORMAL)
[2018-04-18] MEDS: guaiFENesin 600 mg ER Tab PO SCH ×2 (09:54→21:02)
[2018-04-18] MEDS: MethylPREDNISolone 40 mg Vial IVP SCH (09:56)
--- NOTE | 2018-04-18 11:02 | CP.PCM.PN ---
Subjective - Date & Time of Evaluation Date of Evaluation: 04/18/18 Time of Evaluation: 10:51 - Subjective Subjective: Neuro Follow-Up Note: Mr. Fitzgerald was evaluated this morning in the ICU. He was downgraded yesterday evening. He is still complaining of left shoulder pain (rates 6/10) from his recent fall, but otherwise he is feeling fine. Denies h/a, dizziness, visual changes, chest pain, sob, abd pain, n/v/d, seizure activity. Objective - Vital Signs/Intake and Output Vital Signs (last 24 hours): Temp Pulse Resp BP Pulse Ox 98.3 F 88 12 113/71 95 04/18/18 08:00 04/18/18 07:56 04/18/18 07:56 04/18/18 07:56 04/18/18 08:00 Intake and Output: 04/18/18 04/18/18 06:59 18:59 Intake Total 1040 100 Output Total 1200 600 Balance -160 -500 - Medications Medications: Current Medications Albuterol/Ipratropium (Duoneb 3 Mg/0.5 Mg (3 Ml) Ud) 3 ml INH RQ4 [facility] Last Admin: 04/18/18 07:50 Dose: 3 ml Apixaban (Eliquis) 5 mg PO BID [facility] Last Admin: 04/18/18 09:55 Dose: 5 mg Aspirin (Aspirin Chewable) 81 mg PO DAILY [facility] Last Admin: 04/18/18 09:56 Dose: 81 mg Carvedilol (Coreg) 3.125 mg PO BID [facility] Last Admin: 04/18/18 09:56 Dose: 3.125 mg Chlordiazepoxide (Librium) 10 mg PO Q8 PRN PRN Reason: Agitation Last Admin: 04/16/18 11:34 Dose: 10 mg Chlordiazepoxide (Librium) 5 mg PO Q6 [facility]; Taper Stop: 04/21/18 11:59 Last Admin: 04/18/18 06:16 Dose: 5 mg Dextrose (Dextrose 50% Inj) 0 ml IV STAT PRN; Protocol PRN Reason: Hypoglycemia Protocol Dextrose (Glutose 15) 0 gm PO ONCE PRN; Protocol PRN Reason: Hypoglycemia Protocol Digoxin (Lanoxin) 0.25 mg PO DAILY@1800 [facility] Last Admin: 04/17/18 18:04 Dose: 0.25 mg Famotidine (Pepcid) 20 mg PO DAILY [facility] Last Admin: 04/18/18 09:55 Dose: 20 mg Folic Acid (Folic Acid) 1 mg PO DAILY [facility] Last Admin: 04/18/18 09:55 Dose: 1 mg Furosemide (Lasix) 40 mg IVP Q24H [facility] Last Admin: 04/17/18 12:06 Dose: 40 mg Glucagon (Glucagen Diagnostic Kit) 0 mg IM STAT PRN; Protocol PRN Reason: Hypoglycemia Protocol Guaifenesin (Mucinex La) 600 mg PO Q12H [facility] Last Admin: 04/18/18 09:54 Dose: 600 mg Guaifenesin/Dextromethorphan (Robitussin Dm) 5 ml PO Q4H PRN PRN Reason: Cough Last Admin: 04/18/18 05:36 Dose: 5 ml Dextrose (Dextrose 5% In Water 1000 Ml) 1,000 mls @ 0 mls/hr IV .Q0M PRN; Protocol PRN Reason: Hypoglycemia Protocol Levetiracetam 500 mg/ Dextrose 105 mls @ 420 mls/hr IVPB Q12H [facility] Last Admin: 04/18/18 05:34 Dose: 420 mls/hr Insulin Human Regular (Novolin R) 0 unit SC ACHS [facility]; Protocol Last Admin: 04/18/18 07:30 Dose: Not Given Lisinopril (Zestril) 5 mg PO DAILY [facility] Last Admin: 04/18/18 09:56 Dose: 5 mg Methylprednisolone (Solu-Medrol) 20 mg IVP DAILY [facility] Last Admin: 04/18/18 09:56 Dose: 20 mg Montelukast Sodium (Singulair) 10 mg PO [facility] Last Admin: 04/17/18 21:36 Dose: 10 mg Oxycodone/Acetaminophen (Percocet 5/325 Mg Tab) 1 tab PO Q6H PRN PRN Reason: Pain, moderate (4-7) Stop: 04/19/18 13:27 Last Admin: 04/18/18 04:21 Dose: 1 tab Rosuvastatin Calcium (Crestor) 10 mg PO HS [facility] Last Admin: 04/17/18 21:36 Dose: 10 mg Spironolactone (Aldactone) 25 mg PO BID [facility] Last Admin: 04/18/18 09:56 Dose: 25 mg Thiamine HCl (Vitamin B1 Tab) 100 mg PO DAILY [facility] Last Admin: 04/18/18 09:55 Dose: 100 mg - Labs Labs: 04/18/18 05:56 04/18/18 05:56 PT 10.3 SECONDS (9.7-12.2) 04/15/18 03:22 INR 0.9 04/15/18 03:22 APTT 30 SECONDS (21-34) 04/15/18 03:22 - Constitutional Appears: Well, Non-toxic, No Acute Distress - Head Exam Head Exam: ATRAUMATIC, NORMAL INSPECTION, NORMOCEPHALIC - Eye Exam Eye Exam: EOMI, Normal appearance, PERRL Pupil Exam: NORMAL ACCOMODATION, PERRL - ENT Exam ENT Exam: Mucous Membranes Moist - Neck Exam Neck Exam: Full ROM, Normal Inspection - Respiratory Exam Respiratory Exam: NORMAL BREATHING PATTERN - Extremities Exam Extremities Exam: absent: Calf Tenderness, Full ROM, Pedal Edema Additional comments: Able to move all extremities. Decreased ROM to LUE 2/2 shoulder pain - Neurological Exam Neurological Exam: Alert, Awake, CN II-XII Intact, Oriented x3, Reflexes Normal Neuro motor strength exam: Left Upper Extremity: 4, Right Upper Extremity: 5, Left Lower Extremity: 5, Right Lower Extremity: 5 Additional comments: Speech clear Follows all commands Moves all extremities; decreased ROM to LUE 2/2 shoulder pain. No sensory deficits. No tremors; no abnormal jerky movements noted Gait not assessed. - Psychiatric Exam Psychiatric exam: Normal Affect, Normal Mood - Skin Skin Exam: Normal Color Assessment and Plan (1) Seizure Assessment & Plan: No imaging done to review. -VEEG x24 hours completed yesterday; results pending--if neg for seizures, pt may be cleared from neuro standpoint. -Keppra changed to PO today; may continue Keppra 500 mg PO Q 12 hours upon d/c. Please provide rx. -Continue seizure precautions while in the hospital. -I recommended to pt to follow up with Dr. Jackson once he is d/c from the hospital for management of seizures as outpatient. He may schedule an appt within 1 month. -Pt educated regarding compliance of Keppra and following up with Dr. Jackson before his rx runs out. -Notify neuro team of any acute changes in pt's condition. Jenni Chappell DNP, INSURANCE CLAIMS ASSISTANT Case discussed with Dr. Fernandez Status: Acute
--- NOTE | 2018-04-18 11:26 | CP.PCM.PN ---
Subjective - Date & Time of Evaluation Date of Evaluation: 04/18/18 Time of Evaluation: 11:23 - Subjective Subjective: Mary Jo Holland PGY1 Progress Note for Dr. Antonio Pt was examined at bedside this morning. He denies any seizures or tremors overnight. He reports feeling well. He reports improvement in his breathing. He denies chest pain. Objective - Vital Signs/Intake and Output Vital Signs (last 24 hours): Temp Pulse Resp BP Pulse Ox 98.3 F 88 12 113/71 95 04/18/18 08:00 04/18/18 07:56 04/18/18 07:56 04/18/18 07:56 04/18/18 08:00 Intake and Output: 04/18/18 04/18/18 06:59 18:59 Intake Total 1040 100 Output Total 1200 600 Balance -160 -500 - Medications Medications: Current Medications Albuterol/Ipratropium (Duoneb 3 Mg/0.5 Mg (3 Ml) Ud) 3 ml INH RQ4 [facility] Last Admin: 04/18/18 07:50 Dose: 3 ml Apixaban (Eliquis) 5 mg PO BID [facility] Last Admin: 04/18/18 09:55 Dose: 5 mg Aspirin (Aspirin Chewable) 81 mg PO DAILY [facility] Last Admin: 04/18/18 09:56 Dose: 81 mg Carvedilol (Coreg) 6.25 mg PO BID [facility] Chlordiazepoxide (Librium) 10 mg PO Q8 PRN PRN Reason: Agitation Last Admin: 04/16/18 11:34 Dose: 10 mg Chlordiazepoxide (Librium) 5 mg PO Q6 [facility]; Taper Stop: 04/21/18 11:59 Last Admin: 04/18/18 06:16 Dose: 5 mg Dextrose (Dextrose 50% Inj) 0 ml IV STAT PRN; Protocol PRN Reason: Hypoglycemia Protocol Dextrose (Glutose 15) 0 gm PO ONCE PRN; Protocol PRN Reason: Hypoglycemia Protocol Digoxin (Lanoxin) 0.25 mg PO DAILY@1800 [facility] Last Admin: 04/17/18 18:04 Dose: 0.25 mg Famotidine (Pepcid) 20 mg PO DAILY [facility] Last Admin: 04/18/18 09:55 Dose: 20 mg Folic Acid (Folic Acid) 1 mg PO DAILY [facility] Last Admin: 02/26/19 09:55 Dose: 1 mg Furosemide (Lasix) 40 mg IVP Q24H [facility] Last Admin: 04/17/18 12:06 Dose: 40 mg Glucagon (Glucagen Diagnostic Kit) 0 mg IM STAT PRN; Protocol PRN Reason: Hypoglycemia Protocol Guaifenesin (Mucinex La) 600 mg PO Q12H [facility] Last Admin: 04/18/18 09:54 Dose: 600 mg Guaifenesin/Dextromethorphan (Robitussin Dm) 5 ml PO Q4H PRN PRN Reason: Cough Last Admin: 04/18/18 05:36 Dose: 5 ml Dextrose (Dextrose 5% In Water 1000 Ml) 1,000 mls @ 0 mls/hr IV .Q0M PRN; Protocol PRN Reason: Hypoglycemia Protocol Insulin Human Regular (Novolin R) 0 unit SC ACHS [facility]; Protocol Last Admin: 04/18/18 07:30 Dose: Not Given Levetiracetam (Keppra) 500 mg PO BID [facility] Lisinopril (Zestril) 5 mg PO DAILY [facility] Last Admin: 04/18/18 09:56 Dose: 5 mg Methylprednisolone (Solu-Medrol) 20 mg IVP DAILY [facility] Last Admin: 04/18/18 09:56 Dose: 20 mg Montelukast Sodium (Singulair) 10 mg PO HS [facility] Last Admin: 04/17/18 21:36 Dose: 10 mg Oxycodone/Acetaminophen (Percocet 5/325 Mg Tab) 1 tab PO Q6H PRN PRN Reason: Pain, moderate (4-7) Stop: 04/19/18 13:27 Last Admin: 04/18/18 10:52 Dose: 1 tab Rosuvastatin Calcium (Crestor) 10 mg PO HS [facility] Last Admin: 04/17/18 21:36 Dose: 10 mg Spironolactone (Aldactone) 25 mg PO BID [facility] Last Admin: 04/18/18 09:56 Dose: 25 mg Thiamine HCl (Vitamin B1 Tab) 100 mg PO DAILY [facility] Last Admin: 04/18/18 09:55 Dose: 100 mg - Labs Labs: 04/18/18 05:56 04/18/18 05:56 PT 10.3 SECONDS (9.7-12.2) 04/15/18 03:22 INR 0.9 04/15/18 03:22 APTT 30 SECONDS (21-34) 04/15/18 03:22 - Constitutional Appears: Well, No Acute Distress - Head Exam Head Exam: ATRAUMATIC, NORMOCEPHALIC - Eye Exam Eye Exam: EOMI, PERRL Pupil Exam: NORMAL ACCOMODATION - Neck Exam Neck Exam: Normal Inspection - Respiratory Exam Respiratory Exam: Rhonchi, NORMAL BREATHING PATTERN. absent: Rales, Respiratory Distress - Cardiovascular Exam Cardiovascular Exam: Tachycardia, +S1, +S2. absent: Gallop, Rubs, Murmur - GI/Abdominal Exam GI & Abdominal Exam: Soft, Normal Bowel Sounds. absent: Distended, Tenderness - Extremities Exam Extremities Exam: absent: Pedal Edema - Neurological Exam Neurological Exam: Alert, Awake, CN II-XII Intact, Oriented x3. absent: Motor Sensory Deficit - Psychiatric Exam Psychiatric exam: Normal Affect, Normal Mood - Skin Skin Exam: Dry Assessment and Plan - Assessment and Plan (Free Text) Assessment: 57 year old male with PMHX of Atrial fibrillation on Eliquis, HCV, Asthma, CHF (EF 20% s/p AICD), COPD, HTN, HLD, CAD s/p stents (RCA, 2015), polysubstance abuse, alcohol abuse brought into ED by nephew presenting with worsening SOB, mid-sternal chest pain and suspected seizure. Transferred to ICU for SVT. Rate controlled. Downgraded from ICU to med/surg. Plan: SVT H/o A.fib w/AICD - Downgraded from ICU as rate is controlled - Coreg increased to 6.25mg PO BID - digoxin 0.25mg PO daily - Eliquis 5mg PO daily - f/u rpt ECHO - Cardiology consulted - Dr. Oswaldo markham appreciated AICD to be interrogated by company Acute on Chronic CHF exacerbation - BNP 1060 on admission - f/u rpt BNP - ECHO (08/2017): EF 20%, dilated LV, suboptimal and incomplete study - f/u rpt ECHO - strict I/Os - O2 prn - daily weights - keep head of bed elevated 45 degrees - lasix 40mg IV daily - ASA 81 PO QD - Coreg 6.25mg PO BID - Lisinopril 5 PO QD - Aldactone 25 PO QD Shortness of breath in setting of COPD improved - duonebs q4 [facility] - Solumedrol 20mg IV QD - Singulair 10mg PO HS - Mucinex 600 BID Alcohol withdrawal/alcohol withdrawal seizure - pt has history of alcohol withdrawal seizures - Keppra 500 mg PO BID - Folic acid 1mg PO QD - Thiamine 100 PO QD - Librium 10mg PO q8h PRN - Librium 5mg PO q6h [facility] - CIWA protocol - f/u EEG read - Neuro consulted, Dr. Fernandez - recs appreciated signed off, f/u outpt L humerus fracture, Rib fractures - Xray L humerus: non-displaced fracture of greater tuberosity of humerus - Xray ribs: subacute healing fractures in L lateral 8th and 9th ribs - Ortho consulted, Dr. Trinidad - f/u recs Hx of CAD with stents - bare metal stent to RCA in 2014 - ASA 81mg PO daily - coreg 6.25mg PO BID - crestor 10mg PO HS DM - home meds held - HbA1C: 6.9 - ISS low - accucheck achs - hypoglycemic protocol HCV Transaminitis improving - Lipase 583 - abdominal u/s: nodular hepatic contour suspicious of hepatic cirrhosis. mild fatty infiltration of the liver. PPx - DVT ppx: scds, eliquis - GI ppx: pepcid 20mg PO daily - Diet: HHD soft Case discussed with Dr. Antonio
--- NOTE | 2018-04-18 12:19 | CARD ---
APPROVED REPORT Date of service: 04/15/2018 EKG Measurement Heart [id number] <Conclusion> Atrial fibrillation with rapid ventricular response with premature ventricular or aberrantly conducted complexes ST & T wave abnormality, consider inferior ischemia Abnormal ECG
--- NOTE | 2018-04-18 13:36 | CP.PCM.CON ---
History of Present Illness - History of Present Illness History of Present Illness: Orthopedic consultation Dr. Trinidad 57M complains of left sided rib pain and left shoulder pain after fall during seizure 3 days ago ([employer]). He says he has some tingling in his little finger. Denies head or neck pain. Denies pain in shoulder prior to this injury. RHD. Denies pain in other extremities. Denies elbow or hand pain. Admits to swelling to shoulder. ETOH 178 on admission PMHx: CHF (EF 15-25%) s/p AICD, CAD s/p PTCA, seizure disorder, CVA, WTOH abuse, polysubstance abuse PSHx: as above spleen resection, inguinal hernia, ankle surgery Allergies: NKDA Home Meds: as per chart +smoker Review of Systems - Review of Systems All systems: reviewed and no additional remarkable complaints except - Constitutional Additional comments: no fever/chills - Neurological Neurological: As Per HPI Past Patient History - Infectious Disease Hx of Infectious Diseases: None - Tetanus Immunizations Tetanus Immunization: Unknown - Past Medical History & Family History Past Medical History?: Yes Past Family History: Reviewed and not pertinent - Past Social History Smoking Status: Light Smoker < 10 Cigarettes Daily Alcohol: > 2 Drinks/Day Drugs: Cannabis - CARDIAC Hx Congestive Heart Failure: Yes Hx Hypercholesterolemia: Yes Hx Hypertension: Yes - PULMONARY Hx Chronic Obstructive Pulmonary Disease (COPD): Yes - NEUROLOGICAL Hx Seizures: Yes - HEENT Hx HEENT Problems: No - RENAL Hx Chronic Kidney Disease: No - ENDOCRINE/METABOLIC Hx Diabetes Mellitus Type 2: Yes - HEMATOLOGICAL/ONCOLOGICAL Hx Blood Disorders: Yes - INTEGUMENTARY Hx Dermatological Problems: No - MUSCULOSKELETAL/RHEUMATOLOGICAL Hx Falls: Yes - GASTROINTESTINAL Hx Gastrointestinal Disorders: No - GENITOURINARY/GYNECOLOGICAL Hx Genitourinary Disorders: No - PSYCHIATRIC Hx Depression: Yes Hx Substance Use: Yes - SURGICAL HISTORY Hx Coronary Artery Bypass Graft: Yes (double) Hx Coronary Stent: Yes (4) - ANESTHESIA Hx Anesthesia: Yes Hx Anesthesia Reactions: No Hx Malignant Hyperthermia: No Meds Allergies/Adverse Reactions: Allergies Allergy/AdvReac Type Severity Reaction Status Date / Time No Known Allergies Allergy Verified 04/15/18 02:57 - Medications Medications: Current Medications Albuterol/Ipratropium (Duoneb 3 Mg/0.5 Mg (3 Ml) Ud) 3 ml INH RQ4 [facility] Last Admin: 04/18/18 13:19 Dose: 3 ml Apixaban (Eliquis) 5 mg PO BID [facility] Last Admin: 04/18/18 09:55 Dose: 5 mg Aspirin (Aspirin Chewable) 81 mg PO DAILY [facility] Last Admin: 04/18/18 09:56 Dose: 81 mg Carvedilol (Coreg) 6.25 mg PO BID [facility] Chlordiazepoxide (Librium) 10 mg PO Q8 PRN PRN Reason: Agitation Last Admin: 04/16/18 11:34 Dose: 10 mg Chlordiazepoxide (Librium) 5 mg PO TID [facility]; Taper Stop: 04/21/18 11:59 Last Admin: 04/18/18 06:16 Dose: 5 mg Dextrose (Dextrose 50% Inj) 0 ml IV STAT PRN; Protocol PRN Reason: Hypoglycemia Protocol Dextrose (Glutose 15) 0 gm PO ONCE PRN; Protocol PRN Reason: Hypoglycemia Protocol Digoxin (Lanoxin) 0.25 mg PO DAILY@1800 [facility] Last Admin: 04/17/18 18:04 Dose: 0.25 mg Famotidine (Pepcid) 20 mg PO DAILY [facility] Last Admin: 04/18/18 09:55 Dose: 20 mg Folic Acid (Folic Acid) 1 mg PO DAILY [facility] Last Admin: 04/18/18 09:55 Dose: 1 mg Furosemide (Lasix) 40 mg IVP Q24H [facility] Last Admin: 04/18/18 12:26 Dose: 40 mg Glucagon (Glucagen Diagnostic Kit) 0 mg IM STAT PRN; Protocol PRN Reason: Hypoglycemia Protocol Guaifenesin (Mucinex La) 600 mg PO Q12H [facility] Last Admin: 04/18/18 09:54 Dose: 600 mg Guaifenesin/Dextromethorphan (Robitussin Dm) 5 ml PO Q4H PRN PRN Reason: Cough Last Admin: 04/18/18 05:36 Dose: 5 ml Dextrose (Dextrose 5% In Water 1000 Ml) 1,000 mls @ 0 mls/hr IV .Q0M PRN; Protocol PRN Reason: Hypoglycemia Protocol Insulin Human Regular (Novolin R) 0 unit SC ACHS [facility]; Protocol Last Admin: 04/18/18 12:26 Dose: 1 u Levetiracetam (Keppra) 500 mg PO BID [facility] Lisinopril (Zestril) 5 mg PO DAILY [facility] Last Admin: 04/18/18 09:56 Dose: 5 mg Methylprednisolone (Solu-Medrol) 20 mg IVP DAILY [facility] Last Admin: 04/18/18 09:56 Dose: 20 mg Montelukast Sodium (Singulair) 10 mg PO HS [facility] Last Admin: 04/17/18 21:36 Dose: 10 mg Oxycodone/Acetaminophen (Percocet 5/325 Mg Tab) 1 tab PO Q6H PRN PRN Reason: Pain, moderate (4-7) Stop: 04/19/18 13:27 Last Admin: 04/18/18 10:52 Dose: 1 tab Rosuvastatin Calcium (Crestor) 10 mg PO [facility] Last Admin: 04/17/18 21:36 Dose: 10 mg Spironolactone (Aldactone) 25 mg PO BID [facility] Last Admin: 04/18/18 09:56 Dose: 25 mg Thiamine HCl (Vitamin B1 Tab) 100 mg PO DAILY [facility] Last Admin: 04/18/18 09:55 Dose: 100 mg Physical Exam - Constitutional Appears: Well, No Acute Distress - Head Exam Head Exam: ATRAUMATIC - Neck Exam Neck exam: Positive for: Full Rom, Normal Inspection - Respiratory Exam Respiratory Exam: NORMAL BREATHING PATTERN - Cardiovascular Exam Additional comments: +radial pulse LUE - Expanded Upper Extremities Exam Left Shoulder exam: swelling, tenderness (pain with attempts at AROM left shoulder, TTP to prox humerus, no TTP clavicle, upper trap/scapula) Neuro motor exam: finger 2-5 abduction intact, thumb abduction, thumb IP flexion intact, thumb opposition intact, wrist extension intact Neurosensory exam: median nerve intact, radial nerve intact, ulnar nerve intact (admits to tingling to small and entire ring finger, no swelling/deformity/discoloration to left elbow/forearm/hand, negative tinels at cubital tunnel) Vascular exam: radial pulse - Neurological Exam Neurological exam: Alert, Oriented x3 - Psychiatric Exam Psychiatric exam: Normal Affect, Normal Mood - Skin Skin Exam: Dry, Intact, Normal Color, Warm Results - Vital Signs Recent Vital Signs: Last Vital Signs Temp 97.8 F 04/18/18 12:00 Pulse 98 H 04/18/18 13:00 Resp 12 04/18/18 13:00 BP 122/69 04/18/18 12:26 Pulse Ox 95 04/18/18 08:00 - Labs Result Diagrams: 04/18/18 05:56 04/18/18 05:56 Labs: Laboratory Results - last 24 hr 04/17/18 04/17/18 04/18/18 15:50 20:53 05:56 WBC 25.8 H RBC 3.67 L Hgb 10.8 L Hct 34.1 L MCV 92.8 MCH 29.5 MCHC 31.8 L RDW 16.3 H Plt Count 415 H MPV 8.9 Neut % (Auto) 86.5 H Lymph % (Auto) 5.7 L [place] % (Auto) 7.6 Eos % (Auto) 0.0 Baso % (Auto) 0.2 Neut # (Auto) 22.3 H Lymph # (Auto) 1.5 [place] # (Auto) 1.9 H Eos # (Auto) 0.0 Baso # (Auto) 0.1 Neutrophils % (Manual) 87 H Lymphocytes % (Manual) 5 L Monocytes % (Manual) 8 Nucleated RBC % 1 H Platelet Estimate Slightly increased H Large Platelets Present Hypochromasia (manual) Slight Poikilocytosis (manual Slight Anisocytosis (manual) Slight Ovalocytes Slight Stewardson Cells Slight Sodium Potassium Chloride Carbon Dioxide Anion Gap BUN Creatinine Est GFR ( Amer) Est GFR (Non-Af Amer) POC Glucose (mg/dL) 337 H 196 H Random Glucose Calcium Phosphorus Magnesium Total Bilirubin AST ALT Alkaline Phosphatase Total Protein Albumin Globulin Albumin/Globulin Ratio 04/18/18 04/18/18 04/18/18 05:56 07:14 11:21 WBC RBC Hgb Hct MCV MCH MCHC RDW Plt Count MPV Neut % (Auto) Lymph % (Auto) [place] % (Auto) Eos % (Auto) Baso % (Auto) Neut # (Auto) Lymph # (Auto) [place] # (Auto) Eos # (Auto) Baso # (Auto) Neutrophils % (Manual) Lymphocytes % (Manual) Monocytes % (Manual) Nucleated RBC % Platelet Estimate Large Platelets Hypochromasia (manual) Poikilocytosis (manual Anisocytosis (manual) Ovalocytes Stewardson Cells Sodium 128 L Potassium 4.2 Chloride 95 L Carbon Dioxide 28 Anion Gap 9 L BUN 16 Creatinine 0.5 L Est GFR ( Amer) > 60 Est GFR (Non-Af Amer) > 60 POC Glucose (mg/dL) 120 H 167 H Random Glucose 212 H D Calcium 8.2 L Phosphorus 3.5 Magnesium 2.4 H Total Bilirubin 0.7 AST 63 H D ALT 52 Alkaline Phosphatase 321 H Total Protein 6.2 L Albumin 3.2 L Globulin 3.0 Albumin/Globulin Ratio 1.1 - Impressions Impression: atient Name / ID : FLORENCE DUFF / [id number] Exam Date : 04/17/2018 17:09:53 ( Approved ) Study Comment : Sex / Age : M / 57Y Creator : Tegan Alcala MD Dictator : Tegan Alcala MD Flour Worker : Furnace Packer : Tegan Alcala MD Approver2 : Report Date : 04/17/2018 18:09:20 My Comment : Date of service: 04/17/2018 PROCEDURE: <SHOULDER LEFT> HISTORY: s/p fall, pain COMPARISON: None FINDINGS: BONES: There is an acute comminuted nondisplaced fracture in the greater tuberosity of the humerus. Bone alignment and mineralization are normal. JOINTS: The glenohumeral and acromioclavicular joints are preserved. No significant degenerative osteoarthrosis. SOFT TISSUES: Normal. OTHER FINDINGS: None. IMPRESSION: Acute comminuted nondisplaced fracture in the greater tuberosity of the humerus. No dislocation. Assessment & Plan (1) Nondisplaced fracture of greater tuberosity of left humerus Assessment and Plan: CT scan for further evaluation shoulder immobilizer, advised patient to wear immobilizer at all times to avoid displacement of fracture non operative at this time ice PT/OT for ADLs smoking and alcohol cessation advised d/w Dr. Trinidad, agrees with above Status: Acute
--- NOTE | 2018-04-18 14:02 | CP.PCM.PN ---
Subjective - Date & Time of Evaluation Date of Evaluation: 04/18/18 Time of Evaluation: 14:00 - Subjective Subjective: Events reviewed. More lucid Objective - Vital Signs/Intake and Output Vital Signs (last 24 hours): Temp Pulse Resp BP Pulse Ox 97.8 F 98 H 12 122/69 95 04/18/18 12:00 04/18/18 13:00 04/18/18 13:00 04/18/18 12:26 04/18/18 08:00 Intake and Output: 04/18/18 04/18/18 06:59 18:59 Intake Total 1040 700 Output Total 1200 1000 Balance -160 -300 - Medications Medications: Current Medications Albuterol/Ipratropium (Duoneb 3 Mg/0.5 Mg (3 Ml) Ud) 3 ml INH RQ4 [facility] Last Admin: 04/18/18 13:19 Dose: 3 ml Apixaban (Eliquis) 5 mg PO BID [facility] Last Admin: 04/18/18 09:55 Dose: 5 mg Aspirin (Aspirin Chewable) 81 mg PO DAILY [facility] Last Admin: 04/18/18 09:56 Dose: 81 mg Carvedilol (Coreg) 6.25 mg PO BID [facility] Chlordiazepoxide (Librium) 10 mg PO Q8 PRN PRN Reason: Agitation Last Admin: 04/16/18 11:34 Dose: 10 mg Chlordiazepoxide (Librium) 5 mg PO TID [facility]; Taper Stop: 04/21/18 11:59 Last Admin: 04/18/18 13:53 Dose: 5 mg Dextrose (Dextrose 50% Inj) 0 ml IV STAT PRN; Protocol PRN Reason: Hypoglycemia Protocol Dextrose (Glutose 15) 0 gm PO ONCE PRN; Protocol PRN Reason: Hypoglycemia Protocol Digoxin (Lanoxin) 0.25 mg PO DAILY@1800 [facility] Last Admin: 04/17/18 18:04 Dose: 0.25 mg Famotidine (Pepcid) 20 mg PO DAILY [facility] Last Admin: 04/18/18 09:55 Dose: 20 mg Folic Acid (Folic Acid) 1 mg PO DAILY [facility] Last Admin: 04/18/18 09:55 Dose: 1 mg Furosemide (Lasix) 40 mg IVP Q24H [facility] Last Admin: 04/18/18 12:26 Dose: 40 mg Glucagon (Glucagen Diagnostic Kit) 0 mg IM STAT PRN; Protocol PRN Reason: Hypoglycemia Protocol Guaifenesin (Mucinex La) 600 mg PO Q12H [facility] Last Admin: 04/18/18 09:54 Dose: 600 mg Guaifenesin/Dextromethorphan (Robitussin Dm) 5 ml PO Q4H PRN PRN Reason: Cough Last Admin: 04/18/18 05:36 Dose: 5 ml Dextrose (Dextrose 5% In Water 1000 Ml) 1,000 mls @ 0 mls/hr IV .Q0M PRN; Protocol PRN Reason: Hypoglycemia Protocol Insulin Human Regular (Novolin R) 0 unit SC ACHS [facility]; Protocol Last Admin: 04/18/18 12:26 Dose: 1 u Levetiracetam (Keppra) 500 mg PO BID [facility] Lisinopril (Zestril) 5 mg PO DAILY [facility] Last Admin: 04/18/18 09:56 Dose: 5 mg Methylprednisolone (Solu-Medrol) 20 mg IVP DAILY [facility] Last Admin: 04/18/18 09:56 Dose: 20 mg Montelukast Sodium (Singulair) 10 mg PO HS [facility] Last Admin: 04/17/18 21:36 Dose: 10 mg Oxycodone/Acetaminophen (Percocet 5/325 Mg Tab) 1 tab PO Q6H PRN PRN Reason: Pain, moderate (4-7) Stop: 04/19/18 13:27 Last Admin: 04/18/18 10:52 Dose: 1 tab Rosuvastatin Calcium (Crestor) 10 mg PO [facility] Last Admin: 04/17/18 21:36 Dose: 10 mg Spironolactone (Aldactone) 25 mg PO BID [facility] Last Admin: 04/18/18 09:56 Dose: 25 mg Thiamine HCl (Vitamin B1 Tab) 100 mg PO DAILY [facility] Last Admin: 04/18/18 09:55 Dose: 100 mg - Labs Labs: 04/18/18 05:56 04/18/18 05:56 PT 10.3 SECONDS (9.7-12.2) 04/15/18 03:22 INR 0.9 04/15/18 03:22 APTT 30 SECONDS (21-34) 04/15/18 03:22 Assessment and Plan - Assessment and Plan (Free Text) Assessment: 57 year old man with ETOH withdrawl benzo taper Atrial fibrillation now in NSR digoxin; HASBLED score is elevated so anticoagulation has higher bleeding risk over CVA prophylaxsis benefits Acute on chronic systolic CHF diuresis, Coreg, RAAS blockade ASHD s/p CABG will need statin and asprin for secondary prophylaxsis Mitral valve disease s/p bioprosthetic MVR Repeat 2D echo to measure filling pressures Correct Mg > 2 and K > 4.0 Seizures on VEEG, ETOH withdrawl mediated, benzo Social work to see patient to establish a detox plan Call defibrillator company to interrogate device
[2018-04-18] MEDS: Digoxin 250 mcg (0.25 mg) Tab PO SCH (17:30)
--- NOTE | 2018-04-18 18:32 | CT ---
Date of service: 04/18/2018 PROCEDURE: CT of the left shoulder. HISTORY: Greater tuberosity fracture left shoulder COMPARISON: Comparison made with radiographs left shoulder is 04/17/2018. TECHNIQUE: Contiguous axial images of the left shoulder were obtained. Coronal and sagittal reformats were generated. Radiation dose: Total exam DLP = 395.68 mGy-cm. This CT exam was performed using one or more of the following dose reduction techniques: Automated exposure control, adjustment of the mA and/or kV according to patient size, and/or use of iterative reconstruction technique. FINDINGS: BONES: Apparent comminuted fracture of the greater tuberosity of the left humerus... There is a small cortical step seen along the medial aspect of the humeral neck best seen on coronal sequence image number 84 and 85 that may represent a vascular groove. The left humeral head is appropriately located with respect to the glenoid. No other acute fractures are identified. Acromioclavicular joint is intact. Visualized scapula is also intact. SOFT TISSUES: Note is made of patchy opacities seen in the left upper and superior aspect left lower lobes. Findings could be post traumatic contusional changes pre-existing infiltrates/pneumonia. Clinical correlation is recommended.. No evidence of pneumothorax. There are also appears to be paraseptal emphysematous changes as well. In situ pacemaker battery tack subcutaneous tissues left anterior upper chest wall. IMPRESSION: Redemonstrated is a comminuted fracture of the greater tuberosity left humerus. No other fractures are identified. Presumed vascular groove within the medial aspect surgical neck of the left humerus. Note is made of patchy opacities seen in the left upper and superior aspect left lower lobes. Findings could be post traumatic contusional changes pre-existing infiltrates/pneumonia. Clinical correlation is recommended.. No evidence of pneumothorax. There are also appears to be paraseptal emphysematous changes as well.
--- NOTE | 2018-04-18 20:10 | CARD ---
APPROVED REPORT Date of service: 04/18/2018 EXAM: Two-dimensional and M-mode echocardiogram with Doppler and color Doppler. 2D DIMENSIONS IVSd0.8 (0.7-1.1cm)LVDd6.7 (3.9-5.9cm) PWd0.9 (0.7-1.1cm)LA Pjoewd82 (18-58mL) LVDs6.6 (2.5-4.0cm)FS (%) 2.1 % LVEF (%)25.0 (>50%)LVEF (Mae's)26.89 % M-Mode DIMENSIONS Left Atrium (MM)5.05 (2.5-4.0cm)IVSd1.18 (0.7-1.1cm) Aortic Root3.57 (2.2-3.7cm)LVDd6.89 (4.0-5.6cm) Aortic Cusp Exc.2.01 (1.5-2.0cm)PWd0.46 (0.7-1.1cm) FS (%) 12 %LVDs6.10 (2.0-3.8cm) LVEF (%)24 (>50%) Mitral Valve MV E Gdjzziom971.6cm/sMV E Peak Gr.16mmHgMV A Aqswuepj668.8cm/s MV E Mean Gr.10mmHgE/A ratio0.8 TDI E/Lateral E'0.0E/Medial E'0.0 Tricuspid Valve TR Peak [id number]/sTR Peak Gr.66vpKjGNOL96vmEn LEFT VENTRICLE The Left Ventricle is severely dilated. There is normal left ventricular wall thickness. The Ejection Fraction is 25-30%. There is global hypokinesis of the left ventricle. Transmitral Doppler flow pattern is Grade I-abnormal relaxation pattern. RIGHT VENTRICLE The right ventricle is normal size. The right ventricular systolic function is normal. ATRIA The left atrium is severely dilated. The right atrium size is normal.pacemaker artifact noted in ra,rv. AORTIC VALVE The aortic valve is trileaflet. There is mild aortic regurgitation. MITRAL VALVE Bioprosthesis leaflets are thickened, but move well.mean gradinet of 10 mm of hg.no mr. TRICUSPID VALVE The tricuspid valve is normal in structure. There is mild tricuspid regurgitation. Right ventricular systolic pressure is estimated at 36 mmHg. There is mild pulmonary hypertension. PULMONIC VALVE The pulmonary valve is normal in structure. There is trace pulmonic valvular regurgitation. GREAT VESSELS The aortic root is normal in size. The IVC is normal in size and collapses >50% with inspiration. PERICARDIAL EFFUSION There is no pericardial effusion. <Conclusion> The Left Ventricle is severely dilated. The Ejection Fraction is 25-30%. There is global hypokinesis of the left ventricle. Transmitral Doppler flow pattern is Grade I-abnormal relaxation pattern. The left atrium is severely dilated. The right atrium size is normal.pacemaker artifact noted in ra,rv. There is mild aortic regurgitation. Bioprosthesis leaflets are thickened, but move well.mean gradinet of 10 mm of hg.no mr. There is mild tricuspid regurgitation. Right ventricular systolic pressure is estimated at 36 mmHg. There is mild pulmonary hypertension. The aortic root is normal in size. The IVC is normal in size and collapses >50% with inspiration. There is no pericardial effusion. suggest hunter if indicated.
[2018-04-19] MEDS: Albuterol-Ipratrop 3 mg / 0.5 (3 ml) UD INH SCH ×5 (00:27→20:32)
[2018-04-19] MEDS: guaiFENesin DM 100 mg-10 mg/5 ml UD PO PRN ×3 (01:12→20:24)
[2018-04-19] MEDS: Oxycodone/Acetaminophen 5/325 mg Tab PO PRN (04:19)
[2018-04-19 06:18] LABS: HEMOGLOBIN 11.5 g/dL (12.0-18.0); MEAN CELL VOLUME 93.5 fL (80.0-94.0); MEAN CORPUSCULAR HEMOGLOBIN 29.7 pg (27.0-31.0); MEAN CORPUSCULAR HGB CONC 31.7 g/dL (33.0-37.0); MEAN PLATELET VOLUME 9.1 fL (7.2-11.7); RBC 3.87 Mil/uL (4.40-5.90); RED CELL DISTRIBUTION WIDTH 16.5 % (11.5-14.5); WHITE BLOOD COUNT 19.4 K/uL (4.8-10.8)
[2018-04-19 06:41] LABS: ALB/GLOB RATIO 1.1 (1.0-2.1); ALBUMIN 3.8 g/dL (3.5-5.0); ALT/SGPT 50 U/L (21-72); AST/SGOT 84 U/L (17-59); BLOOD UREA NITROGEN 28 mg/dL (9-20); CALCIUM 9.4 mg/dl (8.6-10.4); GFR NON-AFRICAN AMERICAN > 60
[2018-04-19] MEDS: (Novolin R) Insulin Human Regular 100 units/ml vial SC SCH ×4 (08:17→22:14)
[2018-04-19 09:00] LABS: LYMPH # 2.3 K/uL (1.0-4.3); MONO # 1.6 K/uL (0.0-0.8)
[2018-04-19] MEDS: guaiFENesin 600 mg ER Tab PO SCH ×2 (09:42→22:13)
[2018-04-19] MEDS: MethylPREDNISolone 40 mg Vial IVP SCH (09:42)
[2018-04-19] MEDS ORDERED: Oxycodone/Acetaminophen 5/325 mg Tab PO PRN (10:19)
--- NOTE | 2018-04-19 11:14 | CP.PCM.PN ---
<Mary Jo Holland - Last Filed: 04/19/18 11:18> Subjective - Date & Time of Evaluation Date of Evaluation: 04/19/18 Time of Evaluation: 11:11 - Subjective Subjective: Mary Jo Holland PGY1 Progress Note for Dr. Antonio Pt was examined at bedside this morning. He reports rib and shoulder pain that is exacerbated by his coughing. He denies tremors, seizures, shortness of breath, chest pain. Objective - Vital Signs/Intake and Output Vital Signs (last 24 hours): Temp Pulse Resp BP Pulse Ox 97.9 F 86 17 119/78 100 04/19/18 08:33 04/19/18 08:16 04/19/18 08:16 04/19/18 08:16 04/19/18 08:16 Intake and Output: 04/19/18 04/19/18 06:59 18:59 Intake Total 940 0 Output Total 1200 Balance -260 0 - Medications Medications: Current Medications Albuterol/Ipratropium (Duoneb 3 Mg/0.5 Mg (3 Ml) Ud) 3 ml INH RQ4 [facility] Last Admin: 04/19/18 07:34 Dose: 3 ml Apixaban (Eliquis) 5 mg PO BID [facility] Last Admin: 04/19/18 09:43 Dose: 5 mg Aspirin (Aspirin Chewable) 81 mg PO DAILY [facility] Last Admin: 04/19/18 09:43 Dose: 81 mg Carvedilol (Coreg) 6.25 mg PO BID [facility] Last Admin: 04/19/18 09:43 Dose: 6.25 mg Chlordiazepoxide (Librium) 10 mg PO Q8 PRN PRN Reason: Agitation Last Admin: 04/16/18 11:34 Dose: 10 mg Chlordiazepoxide (Librium) 5 mg PO TID [facility]; Taper Stop: 04/21/18 11:59 Last Admin: 04/19/18 09:41 Dose: 5 mg Dextrose (Dextrose 50% Inj) 0 ml IV STAT PRN; Protocol PRN Reason: Hypoglycemia Protocol Dextrose (Glutose 15) 0 gm PO ONCE PRN; Protocol PRN Reason: Hypoglycemia Protocol Digoxin (Lanoxin) 0.25 mg PO DAILY@1800 [facility] Last Admin: 04/18/18 17:30 Dose: 0.25 mg Famotidine (Pepcid) 20 mg PO DAILY [facility] Last Admin: 04/19/18 09:43 Dose: 20 mg Folic Acid (Folic Acid) 1 mg PO DAILY [facility] Last Admin: 04/19/18 09:43 Dose: 1 mg Furosemide (Lasix) 40 mg IVP Q24H [facility] Last Admin: 04/18/18 12:26 Dose: 40 mg Glucagon (Glucagen Diagnostic Kit) 0 mg IM STAT PRN; Protocol PRN Reason: Hypoglycemia Protocol Guaifenesin (Mucinex La) 600 mg PO Q12H [facility] Last Admin: 04/19/18 09:42 Dose: 600 mg Guaifenesin/Dextromethorphan (Robitussin Dm) 10 ml PO Q4H PRN PRN Reason: Cough Last Admin: 04/19/18 08:19 Dose: 10 ml Dextrose (Dextrose 5% In Water 1000 Ml) 1,000 mls @ 0 mls/hr IV .Q0M PRN; Protocol PRN Reason: Hypoglycemia Protocol Insulin Human Regular (Novolin R) 0 unit SC [facility]; Protocol Last Admin: 04/19/18 08:17 Dose: Not Given Levetiracetam (Keppra) 500 mg PO BID [facility] Last Admin: 04/19/18 09:43 Dose: 500 mg Lisinopril (Zestril) 5 mg PO DAILY [facility] Last Admin: 04/19/18 09:44 Dose: 5 mg Methylprednisolone (Solu-Medrol) 20 mg IVP DAILY [facility] Last Admin: 04/19/18 09:42 Dose: 20 mg Montelukast Sodium (Singulair) 10 mg PO HS [facility] Last Admin: 04/18/18 21:03 Dose: 10 mg Oxycodone/Acetaminophen (Percocet 5/325 Mg Tab) 2 tab PO Q6H PRN PRN Reason: Pain, moderate (4-7) Stop: 04/19/18 13:27 Last Admin: 04/19/18 10:42 Dose: 2 tab Rosuvastatin Calcium (Crestor) 10 mg PO HS [facility] Last Admin: 04/18/18 21:02 Dose: 10 mg Spironolactone (Aldactone) 25 mg PO BID [facility] Last Admin: 04/19/18 09:42 Dose: 25 mg Thiamine HCl (Vitamin B1 Tab) 100 mg PO DAILY [facility] Last Admin: 04/19/18 09:42 Dose: 100 mg - Labs Labs: 04/19/18 06:13 04/19/18 06:14 PT 10.3 SECONDS (9.7-12.2) 04/15/18 03:22 INR 0.9 04/15/18 03:22 APTT 30 SECONDS (21-34) 04/15/18 03:22 - Additional Findings Additional findings: - Constitutional Appears: Well, No Acute Distress - Head Exam Head Exam: ATRAUMATIC, NORMOCEPHALIC - Eye Exam Eye Exam: EOMI, PERRL Pupil Exam: NORMAL ACCOMODATION - Neck Exam Neck Exam: Normal Inspection - Respiratory Exam Respiratory Exam: Rhonchi, NORMAL BREATHING PATTERN. absent: Rales, Respiratory Distress - Cardiovascular Exam Cardiovascular Exam: Tachycardia, +S1, +S2. absent: Gallop, Rubs, Murmur - GI/Abdominal Exam GI & Abdominal Exam: Soft, Normal Bowel Sounds. absent: Distended, Tenderness - Extremities Exam Extremities Exam: absent: Pedal Edema - Neurological Exam Neurological Exam: Alert, Awake, CN II-XII Intact, Oriented x3. absent: Motor Sensory Deficit - Psychiatric Exam Psychiatric exam: Normal Affect, Normal Mood - Skin Skin Exam: Dry Assessment and Plan - Assessment and Plan (Free Text) Assessment: 57 year old male with PMHX of Atrial fibrillation on Eliquis, HCV, Asthma, CHF (EF 20% s/p AICD), COPD, HTN, HLD, CAD s/p stents (RCA, 2015), polysubstance abuse, alcohol abuse brought into ED by nephew presenting with worsening SOB, mid-sternal chest pain and suspected seizure. Transferred to ICU for SVT. Rate controlled. Downgraded from ICU to med/surg. Awaiting records from [facility] AICD company name for interrogation. Plan: SVT H/o A.fib w/AICD - Downgraded from ICU as rate is controlled - Coreg 6.25mg PO BID - digoxin 0.25mg PO daily - Eliquis 5mg PO daily - ECHO: LV severely dilated, EF 25-30%, global hypokineses if LV. Grade 1 abnormal relaxation. Left atrium severely dilated. mild AR. mild pulmonary HTN. - Cardiology consulted - Dr. Oswaldo markham appreciated AICD to be interrogated by company - awaiting records from [facility] [place] as pt does not have card with company name Acute on Chronic CHF exacerbation - BNP 1060 on admission - f/u rpt BNP - ECHO: LV severely dilated, EF 25-30%, global hypokineses if LV. Grade 1 abnormal relaxation. Left atrium severely dilated. mild AR. mild pulmonary HTN. - strict I/Os - O2 prn - daily weights - keep head of bed elevated 45 degrees - lasix 40mg IV daily - ASA 81 PO QD - Coreg 6.25mg PO BID - Lisinopril 5 PO QD - Aldactone 25 PO QD Shortness of breath in setting of COPD improved - duonebs q4 [facility] - Solumedrol 20mg IV QD - Singulair 10mg PO HS - Robitussin 10ml PO q4h PRN - Mucinex 600 BID Alcohol withdrawal/alcohol withdrawal seizure - pt has history of alcohol withdrawal seizures - Keppra 500 mg PO BID - Folic acid 1mg PO QD - Thiamine 100 PO QD - Librium 10mg PO q8h PRN - Librium 5mg PO q6h [facility] - CIWA protocol - f/u EEG read - Neuro consulted, Dr. Rebecca markham appreciated signed off, f/u outpt L humerus fracture, Rib fractures - Xray L humerus: non-displaced fracture of greater tuberosity of humerus - Xray ribs: subacute healing fractures in L lateral 8th and 9th ribs - Percocet 2 tabs q6h PRN - Ortho consulted, Dr. Vivi markham appreciated NSAIDS, rest, imobilization with sling Hx of CAD with stents - bare metal stent to RCA in 2015 - ASA 81mg PO daily - coreg 6.25mg PO BID - crestor 10mg PO HS DM - home meds held - HbA1C: 6.9 - ISS low - accucheck achs - hypoglycemic protocol HCV Transaminitis improving - Lipase 583 - abdominal u/s: nodular hepatic contour suspicious of hepatic cirrhosis. mild fatty infiltration of the liver. PPx - DVT ppx: scds, eliquis - GI ppx: pepcid 20mg PO daily - Diet: HHD soft Case discussed with Dr. Antonio <Suraj Antonio Jr. - Last Filed: 04/22/18 13:52> Objective - Vital Signs/Intake and Output Vital Signs (last 24 hours): Temp Pulse Resp BP Pulse Ox 98.1 F 81 20 140/70 99 04/22/18 07:15 04/22/18 07:15 04/22/18 07:15 04/22/18 12:57 04/22/18 07:15 - Medications Medications: Current Medications Albuterol/Ipratropium (Duoneb 3 Mg/0.5 Mg (3 Ml) Ud) 3 ml INH RQ4 [facility] Last Admin: 04/22/18 11:02 Dose: Not Given Apixaban (Eliquis) 5 mg PO BID [facility] Last Admin: 04/22/18 10:55 Dose: Not Given Aspirin (Aspirin Chewable) 81 mg PO DAILY [facility] Last Admin: 04/22/18 10:55 Dose: Not Given Carvedilol (Coreg) 6.25 mg PO BID [facility] Last Admin: 04/22/18 10:55 Dose: Not Given Chlordiazepoxide (Librium) 10 mg PO Q8 PRN PRN Reason: Agitation Last Admin: 04/16/18 11:34 Dose: 10 mg Dextrose (Dextrose 50% Inj) 0 ml IV STAT PRN; Protocol PRN Reason: Hypoglycemia Protocol Dextrose (Glutose 15) 0 gm PO ONCE PRN; Protocol PRN Reason: Hypoglycemia Protocol Digoxin (Lanoxin) 0.25 mg PO DAILY@1800 [facility] Last Admin: 04/21/18 18:53 Dose: 0.25 mg Famotidine (Pepcid) 20 mg PO DAILY [facility] Last Admin: 04/22/18 13:00 Dose: 20 mg Folic Acid (Folic Acid) 1 mg PO DAILY [facility] Last Admin: 04/22/18 13:00 Dose: 1 mg Furosemide (Lasix) 40 mg IVP Q24H [facility] Last Admin: 04/22/18 12:57 Dose: 40 mg Glucagon (Glucagen Diagnostic Kit) 0 mg IM STAT PRN; Protocol PRN Reason: Hypoglycemia Protocol Guaifenesin (Mucinex La) 600 mg PO Q12H [facility] Last Admin: 04/22/18 10:56 Dose: Not Given Guaifenesin/Dextromethorphan (Robitussin Dm) 10 ml PO Q4H PRN PRN Reason: Cough Last Admin: 04/22/18 05:28 Dose: 10 ml Dextrose (Dextrose 5% In Water 1000 Ml) 1,000 mls @ 0 mls/hr IV .Q0M PRN; Protocol PRN Reason: Hypoglycemia Protocol Insulin Human Regular (Novolin R) 0 unit SC [facility]; Protocol Last Admin: 04/22/18 07:30 Dose: Not Given Ketorolac Tromethamine (Toradol) 30 mg IVP Q6 PRN PRN Reason: Pain, moderate (4-7) Last Admin: 04/22/18 06:53 Dose: 30 mg Levetiracetam (Keppra) 500 mg PO BID [facility] Last Admin: 04/22/18 12:59 Dose: 500 mg Lidocaine (Lidoderm) 1 ea TD DAILY [facility] Last Admin: 04/22/18 10:56 Dose: Not Given Lisinopril (Zestril) 5 mg PO DAILY [facility] Last Admin: 04/22/18 12:58 Dose: 5 mg Methylprednisolone (Solu-Medrol) 20 mg IVP DAILY [facility] Last Admin: 04/22/18 12:56 Dose: 20 mg Montelukast Sodium (Singulair) 10 mg PO [facility] Last Admin: 04/21/18 23:16 Dose: 10 mg Rosuvastatin Calcium (Crestor) 10 mg PO [facility] Last Admin: 04/21/18 23:00 Dose: 10 mg Spironolactone (Aldactone) 25 mg PO BID [facility] Last Admin: 04/22/18 12:59 Dose: 25 mg Thiamine HCl (Vitamin B1 Tab) 100 mg PO DAILY [facility] Last Admin: 04/22/18 12:58 Dose: 100 mg - Labs Labs: 04/21/18 06:22 04/21/18 06:22 PT 10.3 SECONDS (9.7-12.2) 04/15/18 03:22 INR 0.9 04/15/18 03:22 APTT 30 SECONDS (21-34) 04/15/18 03:22 Attending/Attestation - Attestation I have personally seen and examined this patient.: Yes I have fully participated in the care of the patient.: Yes I have reviewed all pertinent clinical information, including history, physical exam and plan: Yes Notes (Text): 04/22/18 13:52 Reviewed resident note findings and plan of care. Agree with plan of care and findings.
--- NOTE | 2018-04-19 12:43 | CP.PCM.PN ---
Subjective - Date & Time of Evaluation Date of Evaluation: 04/19/18 Time of Evaluation: 13:16 - Subjective Subjective: Patient states his shoulder feels better in the immobilizer. He is complaining of a lot of pain from the rib fractures. Patient instructed on self splinting for coughing/sneezing. Denies numbness/tingling. No other complaints of pain. Review of Systems - Review of Systems All systems: reviewed and no additional remarkable complaints except - Musculoskeletal Musculoskeletal: As Par HPI - Neurological Neurological: As Per HPI Objective - Vital Signs/Intake and Output Vital Signs (last 24 hours): Temp Pulse Resp BP Pulse Ox 97.9 F 92 H 17 109/76 98 04/19/18 08:33 04/19/18 12:17 04/19/18 12:17 04/19/18 12:17 04/19/18 12:17 Intake and Output: 04/19/18 04/19/18 06:59 18:59 Intake Total 940 0 Output Total 1200 Balance -260 0 - Medications Medications: Current Medications Albuterol/Ipratropium (Duoneb 3 Mg/0.5 Mg (3 Ml) Ud) 3 ml INH RQ4 [facility] Last Admin: 04/19/18 11:13 Dose: Not Given Apixaban (Eliquis) 5 mg PO BID [facility] Last Admin: 04/19/18 09:43 Dose: 5 mg Aspirin (Aspirin Chewable) 81 mg PO DAILY [facility] Last Admin: 04/19/18 09:43 Dose: 81 mg Carvedilol (Coreg) 6.25 mg PO BID [facility] Last Admin: 04/19/18 09:43 Dose: 6.25 mg Chlordiazepoxide (Librium) 10 mg PO Q8 PRN PRN Reason: Agitation Last Admin: 04/16/18 11:34 Dose: 10 mg Chlordiazepoxide (Librium) 5 mg PO BID [facility]; Taper Stop: 04/21/18 11:59 Last Admin: 04/19/18 09:41 Dose: 5 mg Dextrose (Dextrose 50% Inj) 0 ml IV STAT PRN; Protocol PRN Reason: Hypoglycemia Protocol Dextrose (Glutose 15) 0 gm PO ONCE PRN; Protocol PRN Reason: Hypoglycemia Protocol Digoxin (Lanoxin) 0.25 mg PO DAILY@1800 [facility] Last Admin: 04/18/18 17:30 Dose: 0.25 mg Famotidine (Pepcid) 20 mg PO DAILY [facility] Last Admin: 04/19/18 09:43 Dose: 20 mg Folic Acid (Folic Acid) 1 mg PO DAILY [facility] Last Admin: 04/19/18 09:43 Dose: 1 mg Furosemide (Lasix) 40 mg IVP Q24H [facility] Last Admin: 04/19/18 12:17 Dose: 40 mg Glucagon (Glucagen Diagnostic Kit) 0 mg IM STAT PRN; Protocol PRN Reason: Hypoglycemia Protocol Guaifenesin (Mucinex La) 600 mg PO Q12H [facility] Last Admin: 04/19/18 09:42 Dose: 600 mg Guaifenesin/Dextromethorphan (Robitussin Dm) 10 ml PO Q4H PRN PRN Reason: Cough Last Admin: 04/19/18 08:19 Dose: 10 ml Dextrose (Dextrose 5% In Water 1000 Ml) 1,000 mls @ 0 mls/hr IV .Q0M PRN; Protocol PRN Reason: Hypoglycemia Protocol Insulin Human Regular (Novolin R) 0 unit [facility]; Protocol Last Admin: 04/19/18 12:10 Dose: Not Given Levetiracetam (Keppra) 500 mg PO BID [facility] Last Admin: 04/19/18 09:43 Dose: 500 mg Lisinopril (Zestril) 5 mg PO DAILY [facility] Last Admin: 04/19/18 09:44 Dose: 5 mg Methylprednisolone (Solu-Medrol) 20 mg IVP DAILY [facility] Last Admin: 04/19/18 09:42 Dose: 20 mg Montelukast Sodium (Singulair) 10 mg PO [facility] Last Admin: 04/18/18 21:03 Dose: 10 mg Oxycodone/Acetaminophen (Percocet 5/325 Mg Tab) 2 tab PO Q6H PRN PRN Reason: Pain, moderate (4-7) Stop: 04/19/18 13:27 Last Admin: 04/19/18 10:42 Dose: 2 tab Rosuvastatin Calcium (Crestor) 10 mg PO HS [facility] Last Admin: 04/18/18 21:02 Dose: 10 mg Spironolactone (Aldactone) 25 mg PO BID [facility] Last Admin: 04/19/18 09:42 Dose: 25 mg Thiamine HCl (Vitamin B1 Tab) 100 mg PO DAILY [facility] Last Admin: 04/19/18 09:42 Dose: 100 mg - Labs Labs: 04/19/18 06:13 04/19/18 06:14 PT 10.3 SECONDS (9.7-12.2) 04/15/18 03:22 INR 0.9 04/15/18 03:22 APTT 30 SECONDS (21-34) 04/15/18 03:22 - Constitutional Appears: Well, No Acute Distress - Head Exam Head Exam: ATRAUMATIC - Neck Exam Neck Exam: Full ROM, Normal Inspection - Respiratory Exam Respiratory Exam: NORMAL BREATHING PATTERN - Cardiovascular Exam Additional comments: +radial pulse - Extremities Exam Additional comments: sensation intact rad/med/uln/ax n - Neurological Exam Neurological Exam: Alert, Awake, Oriented x3 Neuro motor strength exam: Left Upper Extremity: 5 (+rom fingers, wrist flex/ext) - Psychiatric Exam Psychiatric exam: Normal Affect, Normal Mood - Skin Skin Exam: Dry, Intact, Normal Color, Warm Assessment and Plan (1) Nondisplaced fracture of greater tuberosity of left humerus Assessment & Plan: non operative shoulder immobilizer PT/OT encourage OOB f/u in office Dr. Trinidad 7-10 days after d/c ice d/w Dr. Trinidad, agrees with aboe Status: Acute Radiology Interpretation - Radiology Interpretation #2 Interpretation: Patient Name / ID : FLORENCE DUFF / [id number] Exam Date : 04/18/2018 17:38:21 ( Approved ) Study Comment : Sex / Age : M / 57Y Creator : Jazmin Castanon Dictator : Guille Catherine MD Vice President [employer] : Veterinary Virologist : Guille Catherine MD Approver2 : Report Date : 04/18/2018 17:49:24 My Comment : Date of service: 04/18/2018 PROCEDURE: CT of the left shoulder. HISTORY: Greater tuberosity fracture left shoulder COMPARISON: Comparison made with radiographs left shoulder is 04/17/2018. TECHNIQUE: Contiguous axial images of the left shoulder were obtained. Coronal and sagittal reformats were generated. Radiation dose: Total exam DLP = 395.68 mGy-cm. This CT exam was performed using one or more of the following dose reduction techniques: Automated exposure control, adjustment of the mA and/or kV according to patient size, and/or use of iterative reconstruction technique. FINDINGS: BONES: Apparent comminuted fracture of the greater tuberosity of the left humerus... There is a small cortical step seen along the medial aspect of the humeral neck best seen on coronal sequence image number 84 and 85 that may represent a vascular groove. The left humeral head is appropriately located with respect to the glenoid. No other acute fractures are identified. Acromioclavicular joint is intact. Visualized scapula is also intact. SOFT TISSUES: Note is made of patchy opacities seen in the left upper and superior aspect left lower lobes. Findings could be post traumatic contusional changes pre-existing infiltrates/pneumonia. Clinical correlation is recommended.. No evidence of pneumothorax. There are also appears to be paraseptal emphysematous changes as well. In situ pacemaker battery tack subcutaneous tissues left anterior upper chest wall. IMPRESSION: Redemonstrated is a comminuted fracture of the greater tuberosity left humerus. No other fractures are identified. Presumed vascular groove within the medial aspect surgical neck of the left humerus. Note is made of patchy opacities seen in the left upper and superior aspect left lower lobes. Findings could be post traumatic contusional changes pre-existing infiltrates/pneumonia. Clinical correlation is recommended.. No evidence of pneumothorax. There are also appears to be paraseptal emphysematous changes as well.
[2018-04-19] MEDS: Digoxin 250 mcg (0.25 mg) Tab PO SCH (18:13)
--- NOTE | 2018-04-19 21:53 | CP.PCM.PCO ---
Physician Communication Note - Physician Communication Note Physician Communication Note: EEG normal per Dr. Elaine; cleared by neuro; reconsult prn.
[2018-04-20] MEDS: Albuterol-Ipratrop 3 mg / 0.5 (3 ml) UD INH SCH ×6 (00:15→20:04)
[2018-04-20 02:15] VITALS: RESP 20
[2018-04-20] MEDS: guaiFENesin DM 100 mg-10 mg/5 ml UD PO PRN ×2 (04:41→11:59)
[2018-04-20 07:20] LABS: BASO # 0.1 K/uL (0.0-0.2); BASO % 0.6 % (0.0-2.0); EOS # 0.2 K/uL (0.0-0.7); EOS % 1.1 % (0.0-4.0); HEMOGLOBIN 11.3 g/dL (12.0-18.0); LYMPH % 14.6 % (20.0-40.0); MEAN CELL VOLUME 93.7 fL (80.0-94.0); MEAN CORPUSCULAR HEMOGLOBIN 29.9 pg (27.0-31.0); MEAN CORPUSCULAR HGB CONC 31.9 g/dL (33.0-37.0); MONO # 1.8 K/uL (0.0-0.8); MONO % 13.4 % (0.0-10.0); NEUT # 9.4 K/uL (1.8-7.0); NEUT % 70.3 % (50.0-75.0); NRBC % 0.3 % (0.0-2.0); RBC 3.79 Mil/uL (4.40-5.90); RED CELL DISTRIBUTION WIDTH 16.6 % (11.5-14.5); WHITE BLOOD COUNT 13.4 K/uL (4.8-10.8)
[2018-04-20 07:30] LABS: ALB/GLOB RATIO 1.1 (1.0-2.1); ALBUMIN 3.6 g/dL (3.5-5.0); ALT/SGPT 75 U/L (21-72); AST/SGOT 83 U/L (17-59); BLOOD UREA NITROGEN 31 mg/dL (9-20); GFR NON-AFRICAN AMERICAN > 60
[2018-04-20] MEDS: (Novolin R) Insulin Human Regular 100 units/ml vial SC SCH ×4 (07:53→21:40)
[2018-04-20] MEDS: MethylPREDNISolone 40 mg Vial IVP SCH (09:47)
[2018-04-20] MEDS: guaiFENesin 600 mg ER Tab PO SCH ×2 (09:49→21:40)
[2018-04-20] MEDS: Lidocaine 5% Patch TD SCH (09:53)
--- NOTE | 2018-04-20 14:37 | CP.PCM.PN ---
<MaryJ o Holland - Last Filed: 04/20/18 14:33> Subjective - Date & Time of Evaluation Date of Evaluation: 04/20/18 Time of Evaluation: 14:33 - Subjective Subjective: Mary Jo Holland PGY1 Progress Note for Dr. Antonio Pt was examined at bedside this morning. He reports pain in the L sided ribs and L shoulder. He denies any seizures, tremors, chest pain, palpitations, shortness of breath. He reports improvement in his shortness of breath. Objective - Vital Signs/Intake and Output Vital Signs (last 24 hours): Temp Pulse Resp BP Pulse Ox 97.6 F 87 20 107/72 99 04/20/18 08:24 04/20/18 08:24 04/20/18 08:24 04/20/18 11:59 04/20/18 08:24 - Medications Medications: Current Medications Albuterol/Ipratropium (Duoneb 3 Mg/0.5 Mg (3 Ml) Ud) 3 ml INH RQ4 [facility] Last Admin: 04/20/18 10:59 Dose: 3 ml Apixaban (Eliquis) 5 mg PO BID [facility] Last Admin: 04/20/18 09:48 Dose: 5 mg Aspirin (Aspirin Chewable) 81 mg PO DAILY [facility] Last Admin: 04/20/18 09:48 Dose: 81 mg Carvedilol (Coreg) 6.25 mg PO BID [facility] Last Admin: 04/20/18 09:49 Dose: 6.25 mg Chlordiazepoxide (Librium) 10 mg PO Q8 PRN PRN Reason: Agitation Last Admin: 04/16/18 11:34 Dose: 10 mg Chlordiazepoxide (Librium) 5 mg PO DAILY [facility]; Taper Stop: 04/21/18 11:59 Last Admin: 04/20/18 09:48 Dose: 5 mg Dextrose (Dextrose 50% Inj) 0 ml IV STAT PRN; Protocol PRN Reason: Hypoglycemia Protocol Dextrose (Glutose 15) 0 gm PO ONCE PRN; Protocol PRN Reason: Hypoglycemia Protocol Digoxin (Lanoxin) 0.25 mg PO DAILY@1800 [facility] Last Admin: 04/19/18 18:13 Dose: 0.25 mg Famotidine (Pepcid) 20 mg PO DAILY [facility] Last Admin: 04/20/18 09:48 Dose: 20 mg Folic Acid (Folic Acid) 1 mg PO DAILY [facility] Last Admin: 04/20/18 09:48 Dose: 1 mg Furosemide (Lasix) 40 mg IVP Q24H [facility] Last Admin: 04/20/18 11:59 Dose: 40 mg Glucagon (Glucagen Diagnostic Kit) 0 mg IM STAT PRN; Protocol PRN Reason: Hypoglycemia Protocol Guaifenesin (Mucinex La) 600 mg PO Q12H [facility] Last Admin: 04/20/18 09:49 Dose: 600 mg Guaifenesin/Dextromethorphan (Robitussin Dm) 10 ml PO Q4H PRN PRN Reason: Cough Last Admin: 04/20/18 11:59 Dose: 10 ml Dextrose (Dextrose 5% In Water 1000 Ml) 1,000 mls @ 0 mls/hr IV .Q0M PRN; Protocol PRN Reason: Hypoglycemia Protocol Insulin Human Regular (Novolin R) 0 unit SC ACHS [facility]; Protocol Last Admin: 04/20/18 12:21 Dose: 1 units Ketorolac Tromethamine (Toradol) 30 mg IVP Q6 PRN PRN Reason: Pain, moderate (4-7) Last Admin: 04/20/18 09:45 Dose: 30 mg Levetiracetam (Keppra) 500 mg PO BID [facility] Last Admin: 04/20/18 09:49 Dose: 500 mg Lidocaine (Lidoderm) 1 ea TD DAILY [facility] Last Admin: 04/20/18 09:53 Dose: 1 ea Lisinopril (Zestril) 5 mg PO DAILY [facility] Last Admin: 04/20/18 09:49 Dose: 5 mg Methylprednisolone (Solu-Medrol) 20 mg IVP DAILY [facility] Last Admin: 04/20/18 09:47 Dose: 20 mg Montelukast Sodium (Singulair) 10 mg PO HS [facility] Last Admin: 04/19/18 22:13 Dose: 10 mg Rosuvastatin Calcium (Crestor) 10 mg PO HS [facility] Last Admin: 04/19/18 23:00 Dose: 10 mg Spironolactone (Aldactone) 25 mg PO BID [facility] Last Admin: 04/20/18 09:50 Dose: 25 mg Thiamine HCl (Vitamin B1 Tab) 100 mg PO DAILY [facility] Last Admin: 04/20/18 09:48 Dose: 100 mg - Labs Labs: 04/20/18 06:47 04/20/18 06:47 PT 10.3 SECONDS (9.7-12.2) 04/15/18 03:22 INR 0.9 04/15/18 03:22 APTT 30 SECONDS (21-34) 04/15/18 03:22 - Additional Findings Additional findings: - Constitutional Appears: Well, No Acute Distress - Head Exam Head Exam: ATRAUMATIC, NORMOCEPHALIC - Eye Exam Eye Exam: EOMI, PERRL Pupil Exam: NORMAL ACCOMODATION - Neck Exam Neck Exam: Normal Inspection - Respiratory Exam Respiratory Exam: Rhonchi, NORMAL BREATHING PATTERN. absent: Rales, Respiratory Distress - Cardiovascular Exam Cardiovascular Exam: Tachycardia, +S1, +S2. absent: Gallop, Rubs, Murmur - GI/Abdominal Exam GI & Abdominal Exam: Soft, Normal Bowel Sounds. absent: Distended, Tenderness - Extremities Exam Extremities Exam: absent: Pedal Edema - Neurological Exam Neurological Exam: Alert, Awake, CN II-XII Intact, Oriented x3. absent: Motor Sensory Deficit - Psychiatric Exam Psychiatric exam: Normal Affect, Normal Mood - Skin Skin Exam: Dry Assessment and Plan - Assessment and Plan (Free Text) Assessment: 57 year old male with PMHX of Atrial fibrillation on Eliquis, HCV, Asthma, CHF (EF 20% s/p AICD), COPD, HTN, HLD, CAD s/p stents (RCA, 2015), polysubstance abuse, alcohol abuse brought into ED by nephew presenting with worsening SOB, mid-sternal chest pain and suspected seizure. Transferred to ICU for SVT. Rate controlled. Downgraded from ICU to med/surg. Awaiting records from [facility] for AICD company name for interrogation. Plan: SVT H/o A.fib w/AICD - Downgraded from ICU as rate is controlled - Coreg 6.25mg PO BID - digoxin 0.25mg PO daily - Eliquis 5mg PO daily - ECHO: LV severely dilated, EF 25-30%, global hypokineses if LV. Grade 1 abnormal relaxation. Left atrium severely dilated. mild AR. mild pulmonary HTN. - d/c tele - Cardiology consulted - Dr. Oswaldo markham appreciated AICD to be interrogated by company - awaiting records from [facility] as pt does not have card with company name Acute on Chronic CHF exacerbation - BNP 1060 on admission - f/u rpt BNP - ECHO: LV severely dilated, EF 25-30%, global hypokineses if LV. Grade 1 abnormal relaxation. Left atrium severely dilated. mild AR. mild pulmonary HTN. - strict I/Os - O2 prn - daily weights - keep head of bed elevated 45 degrees - lasix 40mg IV daily - ASA 81 PO QD - Coreg 6.25mg PO BID - Lisinopril 5 PO QD - Aldactone 25 PO QD Shortness of breath in setting of COPD improved - duonebs q4 [facility] - Solumedrol 20mg IV QD - Singulair 10mg PO HS - Robitussin 10ml PO q4h PRN - Mucinex 600 BID Alcohol withdrawal/alcohol withdrawal seizure - pt has history of alcohol withdrawal seizures - Keppra 500 mg PO BID - Folic acid 1mg PO QD - Thiamine 100 PO QD - Librium 10mg PO q8h PRN - Librium 5mg PO q6h [facility] - [facility]WA protocol - EEG: no seizure activity - Neuro consulted, Dr. Rebecca markham appreciated signed off, f/u outpt L humerus fracture, Rib fractures - Xray L humerus: non-displaced fracture of greater tuberosity of humerus - Xray ribs: subacute healing fractures in L lateral 8th and 9th ribs - Toradol 30mg IV q6h PRN - Ortho consulted, Dr. Vivi markham appreciated NSAIDS, rest, imobilization with sling Hx of CAD with stents - bare metal stent to RCA in 2015 - ASA 81mg PO daily - coreg 6.25mg PO BID - crestor 10mg PO HS DM - home meds held - HbA1C: 6.9 - ISS low - accucheck achs - hypoglycemic protocol HCV Transaminitis improving - Lipase 583 - abdominal u/s: nodular hepatic contour suspicious of hepatic cirrhosis. mild fatty infiltration of the liver. PPx - DVT ppx: scds, eliquis - GI ppx: pepcid 20mg PO daily - Diet: HHD soft Dispo: Unable to locate records of defibrillator at this time. Pending interrogation before d/c. Case discussed with Dr. Antonio <Suraj Antonio Jr. - Last Filed: 04/22/18 13:50> Objective - Vital Signs/Intake and Output Vital Signs (last 24 hours): Temp Pulse Resp BP Pulse Ox 98.1 F 81 20 140/70 99 04/22/18 07:15 04/22/18 07:15 04/22/18 07:15 04/22/18 12:57 04/22/18 07:15 - Medications Medications: Current Medications Albuterol/Ipratropium (Duoneb 3 Mg/0.5 Mg (3 Ml) Ud) 3 ml INH RQ4 [facility] Last Admin: 04/22/18 11:02 Dose: Not Given Apixaban (Eliquis) 5 mg PO BID [facility] Last Admin: 04/22/18 10:55 Dose: Not Given Aspirin (Aspirin Chewable) 81 mg PO DAILY [facility] Last Admin: 04/22/18 10:55 Dose: Not Given Carvedilol (Coreg) 6.25 mg PO BID [facility] Last Admin: 04/22/18 10:55 Dose: Not Given Chlordiazepoxide (Librium) 10 mg PO Q8 PRN PRN Reason: Agitation Last Admin: 04/16/18 11:34 Dose: 10 mg Dextrose (Dextrose 50% Inj) 0 ml IV STAT PRN; Protocol PRN Reason: Hypoglycemia Protocol Dextrose (Glutose 15) 0 gm PO ONCE PRN; Protocol PRN Reason: Hypoglycemia Protocol Digoxin (Lanoxin) 0.25 mg PO DAILY@1800 [facility] Last Admin: 04/21/18 18:53 Dose: 0.25 mg Famotidine (Pepcid) 20 mg PO DAILY [facility] Last Admin: 04/22/18 13:00 Dose: 20 mg Folic Acid (Folic Acid) 1 mg PO DAILY [facility] Last Admin: 04/22/18 13:00 Dose: 1 mg Furosemide (Lasix) 40 mg IVP Q24H [facility] Last Admin: 04/22/18 12:57 Dose: 40 mg Glucagon (Glucagen Diagnostic Kit) 0 mg IM STAT PRN; Protocol PRN Reason: Hypoglycemia Protocol Guaifenesin (Mucinex La) 600 mg PO Q12H [facility] Last Admin: 04/22/18 10:56 Dose: Not Given Guaifenesin/Dextromethorphan (Robitussin Dm) 10 ml PO Q4H PRN PRN Reason: Cough Last Admin: 04/22/18 05:28 Dose: 10 ml Dextrose (Dextrose 5% In Water 1000 Ml) 1,000 mls @ 0 mls/hr IV .Q0M PRN; Protocol PRN Reason: Hypoglycemia Protocol Insulin Human Regular (Novolin R) 0 unit SC ACHS [facility]; Protocol Last Admin: 04/22/18 07:30 Dose: Not Given Ketorolac Tromethamine (Toradol) 30 mg IVP Q6 PRN PRN Reason: Pain, moderate (4-7) Last Admin: 04/22/18 06:53 Dose: 30 mg Levetiracetam (Keppra) 500 mg PO BID [facility] Last Admin: 04/22/18 12:59 Dose: 500 mg Lidocaine (Lidoderm) 1 ea TD DAILY [facility] Last Admin: 04/22/18 10:56 Dose: Not Given Lisinopril (Zestril) 5 mg PO DAILY [facility] Last Admin: 04/22/18 12:58 Dose: 5 mg Methylprednisolone (Solu-Medrol) 20 mg IVP DAILY [facility] Last Admin: 04/22/18 12:56 Dose: 20 mg Montelukast Sodium (Singulair) 10 mg PO [facility] Last Admin: 04/21/18 23:16 Dose: 10 mg Rosuvastatin Calcium (Crestor) 10 mg PO [facility] Last Admin: 04/21/18 23:00 Dose: 10 mg Spironolactone (Aldactone) 25 mg PO BID [facility] Last Admin: 04/22/18 12:59 Dose: 25 mg Thiamine HCl (Vitamin B1 Tab) 100 mg PO DAILY [facility] Last Admin: 04/22/18 12:58 Dose: 100 mg - Labs Labs: 04/21/18 06:22 04/21/18 06:22 PT 10.3 SECONDS (9.7-12.2) 04/15/18 03:22 INR 0.9 04/15/18 03:22 APTT 30 SECONDS (21-34) 04/15/18 03:22 Attending/Attestation - Attestation I have personally seen and examined this patient.: Yes I have fully participated in the care of the patient.: Yes I have reviewed all pertinent clinical information, including history, physical exam and plan: Yes Notes (Text): 04/22/18 13:50 Reviewed resident note findings and plan of care. Agree with plan of care and findings.
[2018-04-20] MEDS: Digoxin 250 mcg (0.25 mg) Tab PO SCH (18:27)
[2018-04-21] MEDS: Albuterol-Ipratrop 3 mg / 0.5 (3 ml) UD INH SCH ×6 (00:15→19:42)
[2018-04-21] MEDS: guaiFENesin DM 100 mg-10 mg/5 ml UD PO PRN ×4 (01:05→23:17)
[2018-04-21 06:37] LABS: BASO # 0.1 K/uL (0.0-0.2); BASO % 0.5 % (0.0-2.0); EOS # 0.1 K/uL (0.0-0.7); EOS % 0.8 % (0.0-4.0); HEMOGLOBIN 10.9 g/dL (12.0-18.0); LYMPH # 1.8 K/uL (1.0-4.3); LYMPH % 13.3 % (20.0-40.0); MEAN CELL VOLUME 94.4 fL (80.0-94.0); MEAN CORPUSCULAR HEMOGLOBIN 29.8 pg (27.0-31.0); MEAN CORPUSCULAR HGB CONC 31.5 g/dL (33.0-37.0); MEAN PLATELET VOLUME 8.8 fL (7.2-11.7); MONO # 1.8 K/uL (0.0-0.8); MONO % 13.1 % (0.0-10.0); NEUT % 72.3 % (50.0-75.0); RBC 3.66 Mil/uL (4.40-5.90); RED CELL DISTRIBUTION WIDTH 16.3 % (11.5-14.5); WHITE BLOOD COUNT 13.9 K/uL (4.8-10.8)
[2018-04-21 06:46] LABS: ALB/GLOB RATIO 1.2 (1.0-2.1); ALBUMIN 3.5 g/dL (3.5-5.0); ALT/SGPT 128 U/L (21-72); AST/SGOT 109 U/L (17-59); BLOOD UREA NITROGEN 29 mg/dL (9-20); CALCIUM 8.7 mg/dl (8.6-10.4); GFR NON-AFRICAN AMERICAN > 60
[2018-04-21] MEDS: (Novolin R) Insulin Human Regular 100 units/ml vial SC SCH ×4 (07:45→22:18)
[2018-04-21] MEDS: guaiFENesin 600 mg ER Tab PO SCH ×2 (10:21→22:17)
[2018-04-21] MEDS: MethylPREDNISolone 40 mg Vial IVP SCH (10:22)
[2018-04-21] MEDS: Lidocaine 5% Patch TD SCH (10:25)
--- NOTE | 2018-04-21 11:28 | CP.PCM.PN ---
Subjective - Date & Time of Evaluation Date of Evaluation: 04/21/18 Time of Evaluation: 11:28 - Subjective Subjective: Patient not wearing immobilizer. Says he needed a break. Advised patient he is able to move elbow/wrist/fingers, but to keep shoulder at side. Same complaints of rib and shoulder pain. Objective - Vital Signs/Intake and Output Vital Signs (last 24 hours): Temp Pulse Resp BP Pulse Ox 97.7 F 89 20 121/72 96 04/21/18 09:17 04/21/18 09:17 04/21/18 09:17 04/21/18 09:17 04/21/18 09:17 - Medications Medications: Current Medications Albuterol/Ipratropium (Duoneb 3 Mg/0.5 Mg (3 Ml) Ud) 3 ml INH RQ4 [facility] Last Admin: 04/21/18 08:01 Dose: Not Given Apixaban (Eliquis) 5 mg PO BID [facility] Last Admin: 04/21/18 10:20 Dose: 5 mg Aspirin (Aspirin Chewable) 81 mg PO DAILY [facility] Last Admin: 04/21/18 10:20 Dose: 81 mg Carvedilol (Coreg) 6.25 mg PO BID [facility] Last Admin: 04/21/18 10:20 Dose: 6.25 mg Chlordiazepoxide (Librium) 10 mg PO Q8 PRN PRN Reason: Agitation Last Admin: 04/16/18 11:34 Dose: 10 mg Chlordiazepoxide (Librium) 5 mg PO DAILY [facility]; Taper Stop: 04/21/18 11:59 Last Admin: 04/21/18 10:39 Dose: 5 mg Dextrose (Dextrose 50% Inj) 0 ml IV STAT PRN; Protocol PRN Reason: Hypoglycemia Protocol Dextrose (Glutose 15) 0 gm PO ONCE PRN; Protocol PRN Reason: Hypoglycemia Protocol Digoxin (Lanoxin) 0.25 mg PO DAILY@1800 [facility] Last Admin: 04/20/18 18:27 Dose: 0.25 mg Famotidine (Pepcid) 20 mg PO DAILY [facility] Last Admin: 04/21/18 10:21 Dose: 20 mg Folic Acid (Folic Acid) 1 mg PO DAILY [facility] Last Admin: 04/21/18 10:20 Dose: 1 mg Furosemide (Lasix) 40 mg IVP Q24H [facility] Last Admin: 04/20/18 11:59 Dose: 40 mg Glucagon (Glucagen Diagnostic Kit) 0 mg IM STAT PRN; Protocol PRN Reason: Hypoglycemia Protocol Guaifenesin (Mucinex La) 600 mg PO Q12H [facility] Last Admin: 04/21/18 10:21 Dose: 600 mg Guaifenesin/Dextromethorphan (Robitussin Dm) 10 ml PO Q4H PRN PRN Reason: Cough Last Admin: 04/21/18 05:58 Dose: 10 ml Dextrose (Dextrose 5% In Water 1000 Ml) 1,000 mls @ 0 mls/hr IV .Q0M PRN; Protocol PRN Reason: Hypoglycemia Protocol Insulin Human Regular (Novolin R) 0 unit SC ACHS [facility]; Protocol Last Admin: 04/21/18 07:45 Dose: Not Given Ketorolac Tromethamine (Toradol) 30 mg IVP Q6 PRN PRN Reason: Pain, moderate (4-7) Last Admin: 04/21/18 07:29 Dose: 30 mg Levetiracetam (Keppra) 500 mg PO BID [facility] Last Admin: 04/21/18 10:19 Dose: 500 mg Lidocaine (Lidoderm) 1 ea TD DAILY [facility] Last Admin: 04/21/18 10:25 Dose: 1 ea Lisinopril (Zestril) 5 mg PO DAILY [facility] Last Admin: 04/21/18 10:21 Dose: 5 mg Methylprednisolone (Solu-Medrol) 20 mg IVP DAILY [facility] Last Admin: 04/21/18 10:22 Dose: 20 mg Montelukast Sodium (Singulair) 10 mg PO HS [facility] Last Admin: 04/20/18 21:40 Dose: 10 mg Rosuvastatin Calcium (Crestor) 10 mg PO HS [facility] Last Admin: 04/20/18 21:40 Dose: 10 mg Spironolactone (Aldactone) 25 mg PO BID [facility] Last Admin: 04/21/18 10:20 Dose: 25 mg Thiamine HCl (Vitamin B1 Tab) 100 mg PO DAILY [facility] Last Admin: 04/21/18 10:21 Dose: 100 mg - Labs Labs: 04/21/18 06:22 04/21/18 06:22 PT 10.3 SECONDS (9.7-12.2) 04/15/18 03:22 INR 0.9 04/15/18 03:22 APTT 30 SECONDS (21-34) 04/15/18 03:22 - Extremities Exam Additional comments: LUE: swelling to left shoulder, mild +ROM fingers/wrist/elbow, sensation intact +radial pulse demonstrated limiting shoulder ROM Assessment and Plan (1) Nondisplaced fracture of greater tuberosity of left humerus Assessment & Plan: non operative cont immobilizer ice IS orthopedically stable f/u 7-[address] Trinidad call for appt [phone] d/w Dr. Trinidad, agrees with above Status: Acute
--- NOTE | 2018-04-21 12:36 | CP.PCM.PN ---
Subjective - Date & Time of Evaluation Date of Evaluation: 04/21/18 Time of Evaluation: 12:35 - Subjective Subjective: Events reviewed Objective - Vital Signs/Intake and Output Vital Signs (last 24 hours): Temp Pulse Resp BP Pulse Ox 97.7 F 89 20 121/72 96 04/21/18 09:17 04/21/18 09:17 04/21/18 09:17 04/21/18 09:17 04/21/18 09:17 - Medications Medications: Current Medications Albuterol/Ipratropium (Duoneb 3 Mg/0.5 Mg (3 Ml) Ud) 3 ml INH RQ4 [facility] Last Admin: 04/21/18 11:34 Dose: 3 ml Apixaban (Eliquis) 5 mg PO BID [facility] Last Admin: 04/21/18 10:20 Dose: 5 mg Aspirin (Aspirin Chewable) 81 mg PO DAILY [facility] Last Admin: 04/21/18 10:20 Dose: 81 mg Carvedilol (Coreg) 6.25 mg PO BID [facility] Last Admin: 04/21/18 10:20 Dose: 6.25 mg Chlordiazepoxide (Librium) 10 mg PO Q8 PRN PRN Reason: Agitation Last Admin: 04/16/18 11:34 Dose: 10 mg Dextrose (Dextrose 50% Inj) 0 ml IV STAT PRN; Protocol PRN Reason: Hypoglycemia Protocol Dextrose (Glutose 15) 0 gm PO ONCE PRN; Protocol PRN Reason: Hypoglycemia Protocol Digoxin (Lanoxin) 0.25 mg PO DAILY@1800 [facility] Last Admin: 04/20/18 18:27 Dose: 0.25 mg Famotidine (Pepcid) 20 mg PO DAILY [facility] Last Admin: 04/21/18 10:21 Dose: 20 mg Folic Acid (Folic Acid) 1 mg PO DAILY [facility] Last Admin: 04/21/18 10:20 Dose: 1 mg Furosemide (Lasix) 40 mg IVP Q24H [facility] Last Admin: 04/20/18 11:59 Dose: 40 mg Glucagon (Glucagen Diagnostic Kit) 0 mg IM STAT PRN; Protocol PRN Reason: Hypoglycemia Protocol Guaifenesin (Mucinex La) 600 mg PO Q12H [facility] Last Admin: 04/21/18 10:21 Dose: 600 mg Guaifenesin/Dextromethorphan (Robitussin Dm) 10 ml PO Q4H PRN PRN Reason: Cough Last Admin: 04/21/18 05:58 Dose: 10 ml Dextrose (Dextrose 5% In Water 1000 Ml) 1,000 mls @ 0 mls/hr IV .Q0M PRN; Protocol PRN Reason: Hypoglycemia Protocol Insulin Human Regular (Novolin R) 0 unit SC ACHS [facility]; Protocol Last Admin: 04/21/18 07:45 Dose: Not Given Ketorolac Tromethamine (Toradol) 30 mg IVP Q6 PRN PRN Reason: Pain, moderate (4-7) Last Admin: 04/21/18 07:29 Dose: 30 mg Levetiracetam (Keppra) 500 mg PO BID [facility] Last Admin: 04/21/18 10:19 Dose: 500 mg Lidocaine (Lidoderm) 1 ea TD DAILY [facility] Last Admin: 04/21/18 10:25 Dose: 1 ea Lisinopril (Zestril) 5 mg PO DAILY [facility] Last Admin: 04/21/18 10:21 Dose: 5 mg Methylprednisolone (Solu-Medrol) 20 mg IVP DAILY [facility] Last Admin: 04/21/18 10:22 Dose: 20 mg Montelukast Sodium (Singulair) 10 mg PO HS [facility] Last Admin: 04/20/18 21:40 Dose: 10 mg Rosuvastatin Calcium (Crestor) 10 mg PO HS [facility] Last Admin: 04/20/18 21:40 Dose: 10 mg Spironolactone (Aldactone) 25 mg PO BID [facility] Last Admin: 04/21/18 10:20 Dose: 25 mg Thiamine HCl (Vitamin B1 Tab) 100 mg PO DAILY [facility] Last Admin: 04/21/18 10:21 Dose: 100 mg - Labs Labs: 04/21/18 06:22 04/21/18 06:22 PT 10.3 SECONDS (9.7-12.2) 04/15/18 03:22 INR 0.9 04/15/18 03:22 APTT 30 SECONDS (21-34) 04/15/18 03:22 - Constitutional Appears: Well, Non-toxic - Head Exam Head Exam: ATRAUMATIC, NORMAL INSPECTION - Eye Exam Eye Exam: PERRL. absent: Scleral icterus - ENT Exam ENT Exam: Mucous Membranes Moist Additional comments: Poor dentition - Neck Exam Neck Exam: Full ROM. absent: Thyromegaly - Respiratory Exam Respiratory Exam: NORMAL BREATHING PATTERN Additional comments: Scattered wheezes - Cardiovascular Exam Cardiovascular Exam: REGULAR RHYTHM, RRR, +S1, +S2. absent: JVD Additional comments: +AICD; Healed sternotomy - GI/Abdominal Exam GI & Abdominal Exam: Normal Bowel Sounds. absent: Organomegaly - Extremities Exam Extremities Exam: absent: Calf Tenderness, Pedal Edema - Neurological Exam Neurological Exam: CN II-XII Intact, Oriented x3 Assessment and Plan - Assessment and Plan (Free Text) Assessment: 57 year old man with Chronic systolic CHF s/p, Coreg, RAAS blockade ASHD s/p CABG chronic and stable on crestor and asprin for secondary prophylaxsis Mitral valve disease s/p bioprosthetic MVR Atrial fibrillation now in NSR digoxin; HASBLED score is elevated so anti coagulation has higher bleeding risk over CVA prophylaxsis benefits Repeat 2D echo images viewed by me show bioprosthetic MVR, Sever LV dysfunction, normal filling pressures Correct Mg > 2 and K > 4.0 Seizures now stable on keppra Fractures on immobilize Call defibrillator company to interrogate device - you can call the major companies give and they will have a record in their system.
--- NOTE | 2018-04-21 16:05 | CP.PCM.PN ---
<Mary Jo Holland - Last Filed: 04/21/18 16:03> Subjective - Date & Time of Evaluation Date of Evaluation: 04/21/18 Time of Evaluation: 16:03 - Subjective Subjective: Mary Jo Holland PGY1 Progress Note for Dr. Antonio Pt was examined at bedside this morning. He reports shortness of breath overnight. He denies any tremors or seizures. Objective - Vital Signs/Intake and Output Vital Signs (last 24 hours): Temp Pulse Resp BP Pulse Ox 97.7 F 89 20 126/79 96 04/21/18 09:17 04/21/18 09:17 04/21/18 09:17 04/21/18 12:48 04/21/18 09:17 - Medications Medications: Current Medications Albuterol/Ipratropium (Duoneb 3 Mg/0.5 Mg (3 Ml) Ud) 3 ml INH RQ4 [facility] Last Admin: 04/21/18 15:45 Dose: 3 ml Apixaban (Eliquis) 5 mg PO BID [facility] Last Admin: 04/21/18 10:20 Dose: 5 mg Aspirin (Aspirin Chewable) 81 mg PO DAILY [facility] Last Admin: 04/21/18 10:20 Dose: 81 mg Carvedilol (Coreg) 6.25 mg PO BID [facility] Last Admin: 04/21/18 10:20 Dose: 6.25 mg Chlordiazepoxide (Librium) 10 mg PO Q8 PRN PRN Reason: Agitation Last Admin: 04/16/18 11:34 Dose: 10 mg Dextrose (Dextrose 50% Inj) 0 ml IV STAT PRN; Protocol PRN Reason: Hypoglycemia Protocol Dextrose (Glutose 15) 0 gm PO ONCE PRN; Protocol PRN Reason: Hypoglycemia Protocol Digoxin (Lanoxin) 0.25 mg PO DAILY@1800 [facility] Last Admin: 04/20/18 18:27 Dose: 0.25 mg Famotidine (Pepcid) 20 mg PO DAILY [facility] Last Admin: 04/21/18 10:21 Dose: 20 mg Folic Acid (Folic Acid) 1 mg PO DAILY [facility] Last Admin: 04/21/18 10:20 Dose: 1 mg Furosemide (Lasix) 40 mg IVP Q24H [facility] Last Admin: 04/21/18 12:48 Dose: 40 mg Glucagon (Glucagen Diagnostic Kit) 0 mg IM STAT PRN; Protocol PRN Reason: Hypoglycemia Protocol Guaifenesin (Mucinex La) 600 mg PO Q12H [facility] Last Admin: 04/21/18 10:21 Dose: 600 mg Guaifenesin/Dextromethorphan (Robitussin Dm) 10 ml PO Q4H PRN PRN Reason: Cough Last Admin: 04/21/18 05:58 Dose: 10 ml Dextrose (Dextrose 5% In Water 1000 Ml) 1,000 mls @ 0 mls/hr IV .Q0M PRN; Protocol PRN Reason: Hypoglycemia Protocol Insulin Human Regular (Novolin R) 0 unit SC ACHS [facility]; Protocol Last Admin: 04/21/18 13:09 Dose: 1 units Ketorolac Tromethamine (Toradol) 30 mg IVP Q6 PRN PRN Reason: Pain, moderate (4-7) Last Admin: 04/21/18 13:09 Dose: 30 mg Levetiracetam (Keppra) 500 mg PO BID [facility] Last Admin: 04/21/18 10:19 Dose: 500 mg Lidocaine (Lidoderm) 1 ea TD DAILY [facility] Last Admin: 04/21/18 10:25 Dose: 1 ea Lisinopril (Zestril) 5 mg PO DAILY [facility] Last Admin: 04/21/18 10:21 Dose: 5 mg Methylprednisolone (Solu-Medrol) 20 mg IVP DAILY [facility] Last Admin: 04/21/18 10:22 Dose: 20 mg Montelukast Sodium (Singulair) 10 mg PO HS [facility] Last Admin: 04/20/18 21:40 Dose: 10 mg Rosuvastatin Calcium (Crestor) 10 mg PO HS [facility] Last Admin: 04/20/18 21:40 Dose: 10 mg Spironolactone (Aldactone) 25 mg PO BID [facility] Last Admin: 04/21/18 10:20 Dose: 25 mg Thiamine HCl (Vitamin B1 Tab) 100 mg PO DAILY [facility] Last Admin: 04/21/18 10:21 Dose: 100 mg - Labs Labs: 04/21/18 06:22 04/21/18 06:22 PT 10.3 SECONDS (9.7-12.2) 04/15/18 03:22 INR 0.9 04/15/18 03:22 APTT 30 SECONDS (21-34) 04/15/18 03:22 - Additional Findings Additional findings: - Constitutional Appears: Well, No Acute Distress - Head Exam Head Exam: ATRAUMATIC, NORMOCEPHALIC - Eye Exam Eye Exam: EOMI, PERRL Pupil Exam: NORMAL ACCOMODATION - Neck Exam Neck Exam: Normal Inspection - Respiratory Exam Respiratory Exam: Rhonchi, NORMAL BREATHING PATTERN. absent: Rales, Respiratory Distress - Cardiovascular Exam Cardiovascular Exam: Tachycardia, +S1, +S2. absent: Gallop, Rubs, Murmur - GI/Abdominal Exam GI & Abdominal Exam: Soft, Normal Bowel Sounds. absent: Distended, Tenderness - Extremities Exam Extremities Exam: absent: Pedal Edema - Neurological Exam Neurological Exam: Alert, Awake, CN II-XII Intact, Oriented x3. absent: Motor Sensory Deficit - Psychiatric Exam Psychiatric exam: Normal Affect, Normal Mood - Skin Skin Exam: Dry Assessment and Plan - Assessment and Plan (Free Text) Assessment: 57 year old male with PMHX of Atrial fibrillation on Eliquis, HCV, Asthma, CHF (EF 20% s/p AICD), COPD, HTN, HLD, CAD s/p stents (RCA, 2014), polysubstance abuse, alcohol abuse brought into ED by nephew presenting with worsening SOB, mid-sternal chest pain and suspected seizure. Transferred to ICU for SVT. Rate controlled. Downgraded from ICU to med/surg. Awaiting records from [facility] [place]ICD company name for interrogation. Plan: SVT H/o A.fib w/AICD - Downgraded from ICU as rate is controlled - Coreg 6.25mg PO BID - digoxin 0.25mg PO daily - Eliquis 5mg PO daily - ECHO: LV severely dilated, EF 25-30%, global hypokineses if LV. Grade 1 abnormal relaxation. Left atrium severely dilated. mild AR. mild pulmonary HTN. - Cardiology consulted - Dr. Oswaldo markham appreciated AICD to be interrogated by company - awaiting records from [facility] [place] as pt does not have card with company name Acute on Chronic CHF exacerbation improved - BNP 1060 on admission - rpt BNP 550 - ECHO: LV severely dilated, EF 25-30%, global hypokineses if LV. Grade 1 abnormal relaxation. Left atrium severely dilated. mild AR. mild pulmonary HTN. - strict I/Os - O2 prn - daily weights - keep head of bed elevated 45 degrees - lasix 40mg IV daily - ASA 81 PO QD - Coreg 6.25mg PO BID - Lisinopril 5 PO QD - Aldactone 25 PO QD Shortness of breath in setting of COPD improved - duonebs q4 [facility] - Solumedrol 20mg IV QD - Singulair 10mg PO HS - Robitussin 10ml PO q4h PRN - Mucinex 600 BID Alcohol withdrawal/alcohol withdrawal seizure - pt has history of alcohol withdrawal seizures - Keppra 500 mg PO BID - Folic acid 1mg PO QD - Thiamine 100 PO QD - Librium 10mg PO q8h PRN - Librium 5mg PO q6h [facility] - CIWA protocol - EEG: no seizure activity - Neuro consulted, Dr. Rebecca markham appreciated signed off, f/u outpt L humerus fracture, Rib fractures - Xray L humerus: non-displaced fracture of greater tuberosity of humerus - Xray ribs: subacute healing fractures in L lateral 8th and 9th ribs - Toradol 30mg IV q6h PRN - Ortho consulted, Dr. Vivi markham appreciated NSAIDS, rest, imobilization with sling f/u outpatient Hx of CAD with stents - bare metal stent to RCA in 2015 - ASA 81mg PO daily - coreg 6.25mg PO BID - crestor 10mg PO HS DM - home meds held - HbA1C: 6.9 - ISS low - accucheck achs - hypoglycemic protocol HCV Transaminitis improving - Lipase 583 - abdominal u/s: nodular hepatic contour suspicious of hepatic cirrhosis. mild fatty infiltration of the liver. PPx - DVT ppx: scds, eliquis - GI ppx: pepcid 20mg PO daily - Diet: HHD soft Dispo: Unable to locate records of defibrillator at this time. Pending interrogation before d/c. Case discussed with Dr. Antonio <Suraj Antonio Jr. - Last Filed: 04/22/18 13:48> Objective - Vital Signs/Intake and Output Vital Signs (last 24 hours): Temp Pulse Resp BP Pulse Ox 98.1 F 81 20 140/70 99 04/22/18 07:15 04/22/18 07:15 04/22/18 07:15 04/22/18 12:57 04/22/18 07:15 - Medications Medications: Current Medications Albuterol/Ipratropium (Duoneb 3 Mg/0.5 Mg (3 Ml) Ud) 3 ml INH RQ4 [facility] Last Admin: 04/22/18 11:02 Dose: Not Given Apixaban (Eliquis) 5 mg PO BID [facility] Last Admin: 04/22/18 10:55 Dose: Not Given Aspirin (Aspirin Chewable) 81 mg PO DAILY [facility] Last Admin: 04/22/18 10:55 Dose: Not Given Carvedilol (Coreg) 6.25 mg PO BID [facility] Last Admin: 04/22/18 10:55 Dose: Not Given Chlordiazepoxide (Librium) 10 mg PO Q8 PRN PRN Reason: Agitation Last Admin: 04/16/18 11:34 Dose: 10 mg Dextrose (Dextrose 50% Inj) 0 ml IV STAT PRN; Protocol PRN Reason: Hypoglycemia Protocol Dextrose (Glutose 15) 0 gm PO ONCE PRN; Protocol PRN Reason: Hypoglycemia Protocol Digoxin (Lanoxin) 0.25 mg PO DAILY@1800 [facility] Last Admin: 04/21/18 18:53 Dose: 0.25 mg Famotidine (Pepcid) 20 mg PO DAILY [facility] Last Admin: 04/22/18 13:00 Dose: 20 mg Folic Acid (Folic Acid) 1 mg PO DAILY [facility] Last Admin: 04/22/18 13:00 Dose: 1 mg Furosemide (Lasix) 40 mg IVP Q24H [facility] Last Admin: 04/22/18 12:57 Dose: 40 mg Glucagon (Glucagen Diagnostic Kit) 0 mg IM STAT PRN; Protocol PRN Reason: Hypoglycemia Protocol Guaifenesin (Mucinex La) 600 mg PO Q12H [facility] Last Admin: 04/22/18 10:56 Dose: Not Given Guaifenesin/Dextromethorphan (Robitussin Dm) 10 ml PO Q4H PRN PRN Reason: Cough Last Admin: 04/22/18 05:28 Dose: 10 ml Dextrose (Dextrose 5% In Water 1000 Ml) 1,000 mls @ 0 mls/hr IV .Q0M PRN; Protocol PRN Reason: Hypoglycemia Protocol Insulin Human Regular (Novolin R) 0 unit SC ACHS [facility]; Protocol Last Admin: 04/22/18 07:30 Dose: Not Given Ketorolac Tromethamine (Toradol) 30 mg IVP Q6 PRN PRN Reason: Pain, moderate (4-7) Last Admin: 04/22/18 06:53 Dose: 30 mg Levetiracetam (Keppra) 500 mg PO BID [facility] Last Admin: 04/22/18 12:59 Dose: 500 mg Lidocaine (Lidoderm) 1 ea TD DAILY [facility] Last Admin: 04/22/18 10:56 Dose: Not Given Lisinopril (Zestril) 5 mg PO DAILY [facility] Last Admin: 04/22/18 12:58 Dose: 5 mg Methylprednisolone (Solu-Medrol) 20 mg IVP DAILY [facility] Last Admin: 04/22/18 12:56 Dose: 20 mg Montelukast Sodium (Singulair) 10 mg PO HS [facility] Last Admin: 04/21/18 23:16 Dose: 10 mg Rosuvastatin Calcium (Crestor) [address] [facility] Last Admin: 04/21/18 23:00 Dose: 10 mg Spironolactone (Aldactone) 25 mg PO BID [facility] Last Admin: 04/22/18 12:59 Dose: 25 mg Thiamine HCl (Vitamin B1 Tab) 100 mg PO DAILY [facility] Last Admin: 04/22/18 12:58 Dose: 100 mg - Labs Labs: 04/21/18 06:22 04/21/18 06:22 PT 10.3 SECONDS (9.7-12.2) 04/15/18 03:22 INR 0.9 04/15/18 03:22 APTT 30 SECONDS (21-34) 04/15/18 03:22 Attending/Attestation - Attestation I have personally seen and examined this patient.: Yes I have fully participated in the care of the patient.: Yes I have reviewed all pertinent clinical information, including history, physical exam and plan: Yes Notes (Text): 04/22/18 13:48 Reviewed resident note findings and plan of care. Agree with plan of care and findings.
[2018-04-21 16:13] VITALS: O2SAT 99
[2018-04-21] MEDS: Digoxin 250 mcg (0.25 mg) Tab PO SCH (18:53)
[2018-04-21 18:54] VITALS: PULSE 92
[2018-04-22] MEDS: Albuterol-Ipratrop 3 mg / 0.5 (3 ml) UD INH SCH ×4 (00:16→11:02)
[2018-04-22] MEDS: guaiFENesin DM 100 mg-10 mg/5 ml UD PO PRN (05:28)
[2018-04-22] MEDS: (Novolin R) Insulin Human Regular 100 units/ml vial SC SCH (07:30)
[2018-04-22 07:44] VITALS: PULSE 81; TEMP 98.1
[2018-04-22] MEDS: Lidocaine 5% Patch TD SCH (10:56)
[2018-04-22] MEDS: guaiFENesin 600 mg ER Tab PO SCH (10:56)
[2018-04-22] MEDS: MethylPREDNISolone 40 mg Vial IVP SCH ×2 (10:57→12:56)
[2018-04-22 13:00] VITALS: BP 140/70
--- NOTE | 2018-04-22 15:03 | CP.PCM.DIS ---
Provider - Provider Date of Admission: 04/15/18 03:59 Attending physician: Suraj Antonio Jr, MD Primary care physician: Lamin Barnhart III, MD Consults: 04/15/18 08:34 Inpatient CHARGING OPERATOR Core Measures Referral Routine Comment: Physician Instructions: Reason For Exam: SOB Hx CHF,COPD Physician Consult Routine Comment: Consulting Provider: Ishaan Hodges Consulting Physician: Ishaan Hodges Reason for Consult: SVT 04/15/18 08:49 Social Work Referral Routine Comment: Alcohol abuse Physician Instructions: Reason For Exam: Laura score=8 04/15/18 15:15 Cardiology Consult Routine Comment: Consulting Provider: Demar Chacon Consulting Physician: Demar Chaocn Reason for Consult: RAPID A FIB 04/16/18 10:47 Neurology Consult Routine Comment: Consulting Provider: Karley Jackson Consulting Physician: Karley Jackson Reason for Consult: ?pseudoseizures 04/18/18 11:20 Orthopedic Consult Routine Comment: Consulting Provider: Reza Trinidad III Consulting Physician: Reza Trinidad III Reason for Consult: pt with nondisplaced fracture of greater tuberosity of L humerus Time Spent in preparation of Discharge (in minutes): 70 Hospital Course - Lab Results Lab Results: Micro Results 04/19/18 13:56 Naris MRSA Culture - Final MRSA NOT DETECTED 04/15/18 11:20 Naris MRSA Culture (Admit) - Final MRSA NOT DETECTED Most Recent Lab Values WBC 13.9 K/uL (4.8-10.8) H 04/21/18 06:22 RBC 3.66 Mil/uL (4.40-5.90) L 04/21/18 06:22 Hgb 10.9 g/dL (12.0-18.0) L 04/21/18 06:22 Hct 34.5 % (35.0-51.0) L 04/21/18 06:22 MCV 94.4 fL (80.0-94.0) H 04/21/18 06:22 MCH 29.8 pg (27.0-31.0) 04/21/18 06:22 MCHC 31.5 g/dL (33.0-37.0) L 04/21/18 06:22 RDW 16.3 % (11.5-14.5) H 04/21/18 06:22 Plt Count 398 K/uL (130-400) 04/21/18 06:22 MPV 8.8 fL (7.2-11.7) 04/21/18 06:22 Neut % (Auto) 72.3 % (50.0-75.0) 04/21/18 06:22 Lymph % (Auto) 13.3 % (20.0-40.0) L 04/21/18 06:22 [place] % (Auto) 13.1 % (0.0-10.0) H 04/21/18 06:22 Eos % (Auto) 0.8 % (0.0-4.0) 04/21/18 06:22 Baso % (Auto) 0.5 % (0.0-2.0) 04/21/18 06:22 Neut # (Auto) 10.0 K/uL (1.8-7.0) H 04/21/18 06:22 Lymph # (Auto) 1.8 K/uL (1.0-4.3) 04/21/18 06:22 [place] # (Auto) 1.8 K/uL (0.0-0.8) H 04/21/18 06:22 Eos # (Auto) 0.1 K/uL (0.0-0.7) 04/21/18 06:22 Baso # (Auto) 0.1 K/uL (0.0-0.2) 04/21/18 06:22 Neutrophils % (Manual) 87 % (50-75) H 04/18/18 05:56 Lymphocytes % (Manual) 5 % (20-40) L 04/18/18 05:56 Monocytes % (Manual) 8 % (0-10) 04/18/18 05:56 Eosinophils % (Manual) 1 % (0-4) 04/17/18 05:26 Nucleated RBC % 1 % (0-0) H 04/18/18 05:56 Platelet Estimate Slightly increased (NORMAL) H 04/18/18 05:56 Large Platelets Present 04/18/18 05:56 Hypochromasia (manual) Slight 04/18/18 05:56 Poikilocytosis (manual Slight 04/18/18 05:56 Anisocytosis (manual) Slight 04/18/18 05:56 Microcytosis (manual) Slight 04/17/18 05:26 Ovalocytes Slight 04/18/18 05:56 [place] Cells Slight 04/18/18 05:56 PT 10.3 SECONDS (9.7-12.2) 04/15/18 03:22 INR 0.9 04/15/18 03:22 APTT 30 SECONDS (21-34) 04/15/18 03:22 Sodium 133 mmol/L (132-148) 04/21/18 06:22 Potassium 4.5 mmol/L (3.6-5.2) 04/21/18 06:22 Chloride 99 mmol/L (98-107) 04/21/18 06:22 Carbon Dioxide 28 mmol/L (22-30) 04/21/18 06:22 Anion Gap 10 (10-20) 04/21/18 06:22 BUN 29 mg/dL (9-20) H 04/21/18 06:22 Creatinine 0.7 mg/dL (0.8-1.5) L 04/21/18 06:22 Est GFR ( Amer) > 60 04/21/18 06:22 Est GFR (Non-Af Amer) > 60 04/21/18 06:22 POC Glucose (mg/dL) 132 mg/dL (65-110) H 04/22/18 06:36 Random Glucose 127 mg/dL (75-110) H D 04/21/18 06:22 Hemoglobin A1c 6.9 % (4.2-6.5) H 04/15/18 03:30 Calcium 8.7 mg/dl (8.6-10.4) 04/21/18 06:22 Phosphorus 4.9 mg/dL (2.5-4.5) H 04/20/18 06:47 Magnesium 2.1 mg/dL (1.6-2.3) 04/20/18 06:47 Total Bilirubin 0.5 mg/dL (0.2-1.3) 04/21/18 06:22 AST 109 U/L (17-59) H D 04/21/18 06:22 ALT 128 U/L (21-72) H D 04/21/18 06:22 Alkaline Phosphatase 303 U/L (38-126) H 04/21/18 06:22 Total Creatine Kinase 33 U/L (55-170) L 04/15/18 10:20 CK-MB (Mass) 3.18 ng/mL (0.0-3.38) 04/15/18 10:20 Troponin I 0.0220 ng/mL (0.00-0.120) 04/21/18 06:22 NT-Pro-B Natriuret Pep 550 pg/mL (0-900) 04/19/18 06:14 Total Protein 6.6 g/dL (6.3-8.3) 04/21/18 06:22 Albumin 3.5 g/dL (3.5-5.0) 04/21/18 06:22 Globulin 3.0 gm/dL (2.2-3.9) 04/21/18 06:22 Albumin/Globulin Ratio 1.2 (1.0-2.1) 04/21/18 06:22 Triglycerides 63 mg/dL (0-149) 04/15/18 10:20 Cholesterol 162 mg/dL (0-199) 04/15/18 10:20 LDL Cholesterol Direct 77 mg/dL (0-129) 04/15/18 10:20 HDL Cholesterol 86 mg/dL (30-70) H 04/15/18 10:20 Lipase 583 U/L (23-300) H 04/15/18 03:22 Alpha Fetoprotein 3.3 ng/mL (0.0-7.5) 04/16/18 08:34 25-OH Vitamin D Total 33.2 NG/ML (30.0-100.0) 04/19/18 06:14 Procalcitonin 0.10 NG/ML (0.19-0.49) L 04/15/18 10:20 Urine Color Straw (YELLOW) 04/15/18 11:20 Urine Clarity Clear (Clear) 04/15/18 11:20 Urine pH 7.0 (5.0-8.0) 04/15/18 11:20 Ur Specific [place] 1.004 (1.003-1.030) 04/15/18 11:20 Urine Protein Negative mg/dL (NEGATIVE) 04/15/18 11:20 Urine Glucose (UA) Normal mg/dL (Normal) 04/15/18 11:20 Urine Ketones Negative mg/dL (NEGATIVE) 04/15/18 11:20 Urine Blood Negative (NEGATIVE) 04/15/18 11:20 Urine Nitrate Negative (NEGATIVE) 04/15/18 11:20 Urine Bilirubin Negative (NEGATIVE) 04/15/18 11:20 Urine Urobilinogen Normal mg/dL (0.2-1.0) 04/15/18 11:20 Ur Leukocyte Esterase Neg Jesu/uL (Negative) 04/15/18 11:20 Urine WBC (Auto) < 1 /hpf (0-5) 04/15/18 11:20 Salicylates 2.1 mg/dL 1 04/15/18 10:20 Urine Opiates Screen Negative (NEGATIVE) 04/15/18 08:40 Urine Methadone Screen Negative (NEGATIVE) 04/15/18 08:40 Acetaminophen < 10.0 ug/mL (10.0-30.0) L 04/15/18 10:20 Ur Barbiturates Screen Negative (NEGATIVE) 04/15/18 08:40 Ur Phencyclidine Scrn Negative (NEGATIVE) 04/15/18 08:40 Ur Amphetamines Screen Negative (NEGATIVE) 04/15/18 08:40 U Benzodiazepines Scrn Negative (NEGATIVE) 04/15/18 08:40 U Oth Cocaine Metabols Negative (NEGATIVE) 04/15/18 08:40 U Cannabinoids Screen Positive (NEGATIVE) H 04/15/18 08:40 Alcohol, Quantitative 178 mg/dl (0-10) H 04/15/18 03:22 Hepatitis A IgM Ab Negative (NEGATIVE) 04/15/18 03:30 Hep Bs Antigen Negative (NEGATIVE) 04/15/18 03:30 Hep B Core IgM Ab Negative (NEGATIVE) 04/15/18 03:30 Hepatitis C Antibody Reactive (NEGATIVE) 04/15/18 03:30 HCV RNA Qual (TMA) Not detected 04/15/18 10:20 - Hospital Course Hospital Course: Upon Admission: Patient is a 57 year old male with a past medical history of Atrial fibrillation on Eliquis, HCV, Asthma, CHF (EF 15% s/p AICD), COPD, HTN, HLD, CAD s/p stents (RCA, 2015), polysubstance abuse, alcohol abuse brought into ED by nephew presenting with worsening SOB, mid-sternal chest pain and suspected seizure. Chest pain is nonexertional in nature and described as pressure sensation which does not radiate down extremities or up neck. Nephew at bedside states patient had seizures in the past due to alcohol, was noted to be shaking in the ambulance. He denies any eye rolling, frothing at the mouth, tongue biting, or other seizure-like activities. Patient does admit to drinking tonight, states he was out in [facility] and drank 4-5 [place]. He denies any fall, numbness, weakness, LOC, headaches, chest pain, palpitations. 12 pt ROS reviewed and otherwise negative. Pt was admitted for chest pain and sent to ICU for Rapid A. fib Hospital Course: Pt was admitted to ICU for rapid A.fib and withdrawal seizures. Pt was stabilized with cardizem drip. Pt was given keppra which relieved the seizures. Neuro was consulted and recommended keppra and an EEG. EEG showed no focal seizure activity. Patient was downgraded to med/surg. ECHO: LV severely dilated, EF 25-30%, global hypokineses if LV. Grade 1 abnormal relaxation. Left atrium severely dilated. mild AR. mild pulmonary HTN. Cardio was consulted and recommended interrogation of AICD. AICD was interrogated and report showed one shock for rapid A.fib. Pt was given duonebs for breathing, which improved throughout the course of his stay. Pt complained of L rib and shoulder pain. Imaging was obtained which revealed nondisplaced fractures of the ribs and shoulder. Ortho was consulted and recommended immobilization of the shoulder with a sling and pain control with NSAIDs Pt was deemed stable for discharge to home. Upon Discharge: Pt was discharged home with instructions to follow up with Dr. Antonio within 2 weeks. He was given prescriptions for his inhalers. Pt understood instructions and agreed. Discharge Exam - Head Exam Head Exam: ATRAUMATIC, NORMAL INSPECTION, NORMOCEPHALIC - Eye Exam Eye Exam: EOMI, Normal appearance Pupil Exam: NORMAL ACCOMODATION - Respiratory Exam Respiratory Exam: Rales, NORMAL BREATHING PATTERN. absent: Wheezes - Cardiovascular Exam Cardiovascular Exam: REGULAR RHYTHM, +S1, +S2. absent: Gallop, Rubs, Systolic Murmur - GI/Abdominal Exam GI & Abdominal Exam: Normal Bowel Sounds, Soft. absent: Distended, Tenderness - Rectal Exam Rectal Exam: NORMAL INSPECTION - Extremities Exam Extremities exam: normal inspection - Neurological Exam Neurological exam: Alert, CN II-XII Intact, Oriented x3 - Psychiatric Exam Psychiatric exam: Normal Affect, Normal Mood - Skin Skin Exam: Normal Color Discharge Plan - Discharge Medications Prescriptions: Albuterol HFA [Ventolin HFA 90 mcg/actuation (8 g)] 1 puff IH QID PRN #1 inhaler PRN Reason: Wheezing Fluticasone/Vilanterol [Breo Ellipta 200-25 Mcg INH] 1 each IH DAILY #1 blst.w. dev - Follow Up Plan Condition: GUARDED Disposition: HOME/ ROUTINE Instructions: COPD Including Emphysema (DC), Chest Pain (DC), Alcohol Abuse and Alcoholism (DC), Shoulder Fracture (DC) Additional Instructions: Please follow up with Dr. Antonio within 2 weeks. Call to make an appointment. Please follow up with Dr. Chacon, rotary furnace operator within 2 weeks. Call [phone] to make an appointment. Please take your medications as prescribed. If symptoms worsen, return the the emergency department. Take care and be well. Referrals: Obey MENON,Lamin WHITE MD [Primary Care Provider] -
--- NOTE | 2018-04-24 12:53 | CARD ---
APPROVED REPORT Date of service: 04/21/2018 EKG Measurement Heart [id number] <Conclusion> Normal sinus rhythm Nonspecific T wave abnormality Abnormal ECG
== END 2018-04-22 15:15 | disposition home or self-care (01) | DRG 750 ==
LOC: C.ER 02:33 → SUPCPDRO 02:33 → C.6T 03:59 → C.9I 08:51 → C.6T 04-19 12:35
PROVIDERS: ADMIT Internal Medicine; ATTEND Internal Medicine
DX: F10.230 Alcohol dependence with withdrawal, uncomplicated (principal); J44.1 Chronic obstructive pulmonary disease with (acute) exacerbation; I50.23 Acute on chronic systolic (congestive) heart failure; G40.919 Epilepsy, unspecified, intractable, without status epilepticus; I11.0 Hypertensive heart disease with heart failure; S22.42XA Multiple fractures of ribs, left side, initial encounter for closed fracture; I48.91 Unspecified atrial fibrillation; F17.210 Nicotine dependence, cigarettes, uncomplicated; F10.220 Alcohol dependence with intoxication, uncomplicated; F12.10 Cannabis abuse, uncomplicated; Y90.6 Blood alcohol level of 120-199 mg/100 ml; E78.5 Hyperlipidemia, unspecified; I25.10 Atherosclerotic heart disease of native coronary artery without angina pectoris; I25.5 Ischemic cardiomyopathy; I27.20 Pulmonary hypertension, unspecified; I47.1 Supraventricular tachycardia; I48.2 Chronic atrial fibrillation; S42.255A Nondisplaced fracture of greater tuberosity of left humerus, initial encounter for closed fracture; W19.XXXA Unspecified fall, initial encounter; Z86.73 Personal history of transient ischemic attack (TIA), and cerebral infarction without residual deficits; Z91.14 Patient's other noncompliance with medication regimen; Z95.1 Presence of aortocoronary bypass graft; Z95.3 Presence of xenogenic heart valve; Z95.5 Presence of coronary angioplasty implant and graft; Z95.810 Presence of automatic (implantable) cardiac defibrillator; E11.9 Type 2 diabetes mellitus without complications; D72.829 Elevated white blood cell count, unspecified

== ENCOUNTER 2018-04-24 07:50 | Inpatient (IN) | payer OTHER ==
[2018-04-24 07:51] VITALS: BMI 11.7
--- NOTE | 2018-04-24 08:11 | C.PDOC ---
History Of Present Illness 57 y/o male with a PMHx of A Fib, asthma, substance abuse, CHF (w/ ejection fraction of 15%), COPD, HTN, and s/p stent placement, presents to the ED today complaining of nausea and SOB that began this morning. Patient was just discha rged from 2-week hospitalization here yesterday. He denies any chest pain, vomiting, fever, or abdominal pain. On arrival patient appears to be in mild respiratory distress, speaking in full sentences. Time Seen by Provider: 04/24/18 07:54 Chief Complaint (Nursing): Shortness Of Breath History Per: Patient History/Exam Limitations: no limitations Onset/Duration Of Symptoms: Hrs Current Symptoms Are (Timing): Still Present Severity: Moderate Reports Recently: Hospitalized Recent travel outside of the [place]: No Past Medical History Reviewed: Historical Data, Nursing Documentation, Vital Signs Vital Signs: Last Vital Signs Temp Pulse 110 H 04/24/18 07:53 Resp 25 H 04/24/18 07:53 BP 139/90 04/24/18 07:53 Pulse Ox 95 04/24/18 07:53 - Medical History PMH: Asthma, Atrial Fibrillation, Back Problems, Cardia Arrhythmia, CHF, COPD, Depression, Emphysema, HTN, Hypercholesterolemia, Pneumonia, Seizures Denies: Chronic Kidney Disease Surgical History: CABG (double), Coronary Stent (x4), Pacemaker - [facility] Procedures ASSISTANCE WITH RESPIRATORY VENTILATION, 24-96 HRS, CPAP (11/06/16) CORONAR ARTERIOGR-2 CATH (06/24/14) CORONARY ARTERY STENT INSERTION [id number] (06/24/14) DETOXIFICATION SERVICES FOR SUBSTANCE ABUSE TREATMENT (08/12/17) INFLUENZA VACCINATION (04/25/14) INSERTION OF ONE VASCULAR STENT (06/24/14) INTRODUCE OF OTH THERAP SUBST INTO RESP TRACT, VIA OPENING (06/19/15) INTRODUCTION OF SERUM/TOX/VACCINE INTO MUSCLE, PERC APPROACH (01/05/16) LEFT HEART CARDIAC CATH (06/24/14) NEBULIZER THERAPY (07/12/14) PERCUTANEOUS TRANSLUMINAL CORONARY ANGIOPLASTY [PTCA] (06/24/14) PROCEDURE ON SINGLE VESSEL (06/24/14) VACCINATION NEC (04/25/14) Family History: States: Unknown Family Hx, Diabetes - Social History Hx Tobacco Use: Yes Hx Alcohol Use: Yes Hx Substance Use: No - Immunization History Hx Tetanus Toxoid Vaccination: No Hx Influenza Vaccination: Yes Hx Pneumococcal Vaccination: Yes Review Of Systems Except As Marked, All Systems Reviewed And Found Negative. Constitutional: Negative for: Fever, Chills Eyes: Negative for: Vision Change Cardiovascular: Negative for: Chest Pain Respiratory: Positive for: Cough, Shortness of Breath Gastrointestinal: Positive for: Nausea. Negative for: Vomiting, Abdominal Pain, Diarrhea Musculoskeletal: Negative for: Back Pain, Leg Pain Skin: Negative for: Rash Neurological: Negative for: Change in Speech, Confusion, Headache, Dizziness Physical Exam - Physical Exam Appears: Non-toxic, In Acute Distress (mild respiratory distress) Skin: Warm, Dry, No Diaphoretic, No Rash Head: Atraumatic, Normacephalic Eye(s): bilateral: Normal Inspection, PERRL, EOMI Oral Mucosa: Moist Neck: Normal ROM Chest: Symmetrical Cardiovascular: Rhythm Regular Respiratory: No Decreased Breath Sounds, No Accessory Muscle Use, Rales (at the bases), Wheezing (expiratory wheezing bilaterally) Gastrointestinal/Abdominal: Soft, No Tenderness, No Distention Extremity: Bilateral: Atraumatic, Normal ROM (x4) Pulses: Left Dorsalis Pedis: Normal, Right Dorsalis Pedis: Normal Neurological/Psych: Oriented x3, Other (Speaking in full sentences) ED Course And Treatment - Laboratory Results Result Diagrams: 04/24/18 08:23 04/24/18 08:23 ECG: Interpreted By Ma ECG Rhythm: Sinus Tachycardia Interpretation Of ECG: Normal intervals, Normal axis, LVH, Nonspecific T wave changes Rate From EC O2 Sat by Pulse Oximetry: 95 (RA) Pulse Ox Interpretation: Normal Medical Decision Making Medical Decision Making: Impression: SOB Plan: - EKG - Chest x-ray - Labs - Albuterol nebs - 4 mg IV Zofran - 20 mg IV Lasix - Placed patient on BiPAP Disposition Discussed With DrNessa: Quinten Lema Doctor Will See Patient In The: Hospital Counseled Patient/Family Regarding: Studies Performed, Diagnosis - Disposition Disposition: HOSPITALIZED Disposition Time: 10:14 Condition: FAIR Forms: [facility] (Sinhala) - Clinical Impression Clinical Impression: Chr obstructive pulmonary disease w/ acute lower respiratory infxn - Scribe Statement The provider has reviewed the documentation as recorded by the Lesli Marcano Provider Attestation: All medical record entries made by the Scribe were at my direction and personally dictated by me. I have reviewed the chart and agree that the record accurately reflects my personal performance of the history, physical exam, medical decision making, and the department course for this patient. I have also personally directed, reviewed, and agree with the discharge instructions and disposition.
[2018-04-24] MEDS: Albuterol 0.083% Inhal Sol (2.5 mg/3 mL) UD INH STA ×2 (08:25→08:26)
[2018-04-24 08:39] LABS: BASO # 0.1 K/uL (0.0-0.2); BASO % 0.4 % (0.0-2.0); EOS # 0.1 K/uL (0.0-0.7); EOS % 0.3 % (0.0-4.0); HEMOGLOBIN 11.6 g/dL (12.0-18.0); LYMPH # 2.3 K/uL (1.0-4.3); LYMPH % 9.1 % (20.0-40.0); MEAN CELL VOLUME 93.1 fL (80.0-94.0); MEAN CORPUSCULAR HEMOGLOBIN 29.5 pg (27.0-31.0); MEAN CORPUSCULAR HGB CONC 31.7 g/dL (33.0-37.0); MEAN PLATELET VOLUME 8.8 fL (7.2-11.7); MONO # 2.6 K/uL (0.0-0.8); MONO % 10.4 % (0.0-10.0); NEUT # 20.2 K/uL (1.8-7.0); NEUT % 79.8 % (50.0-75.0); PLATELET COUNT 462 K/uL (130-400); RBC 3.93 Mil/uL (4.40-5.90); RED CELL DISTRIBUTION WIDTH 16.4 % (11.5-14.5)
[2018-04-24 08:41] LABS: WHITE BLOOD COUNT 25.3 K/uL (4.8-10.8)
[2018-04-24 08:44] LABS: PROTHROMBIN TIME 10.9 SECONDS (9.7-12.2)
[2018-04-24] MEDS ORDERED: Cefepime 1 GM in Sodium Chloride 0.9% 50 ML IVPB ONE (08:49)
[2018-04-24 08:59] LABS: B-TYPE NATRIURETIC PEPTIDE 480 pg/mL (0-900)
[2018-04-24 09:02] LABS: ALB/GLOB RATIO 1.2 (1.0-2.1); ALBUMIN 4.2 g/dL (3.5-5.0); ALT/SGPT 237 U/L (21-72); AST/SGOT 148 U/L (17-59); BLOOD UREA NITROGEN 16 mg/dL (9-20); CALCIUM 8.9 mg/dl (8.6-10.4); GFR NON-AFRICAN AMERICAN > 60
[2018-04-24 09:11] LABS: URINE BILIRUBIN NEGATIVE (NEGATIVE); URINE BLOOD NEGATIVE (NEGATIVE); URINE CLARITY Clear (Clear); URINE COLOR Yellow (YELLOW); URINE GLUCOSE (UA) NORMAL (Normal); URINE LEUKOCYTE ESTERASE NEG Leu/uL (Negative); URINE PROTEIN NEGATIVE (NEGATIVE); URINE UROBILINOGEN NORMAL mg/dL (0.2-1.0)
[2018-04-24 09:14] LABS: LYMPHOCYTE 7 % (20-40); MONOCYTE 11 % (0-10); NEUTROPHIL 82 % (50-75); TOTAL CELLS COUNTED 100
[2018-04-24 09:15] LABS: PLATELET ESTIMATE SLIGHTLY INCREASED (NORMAL)
[2018-04-24 09:16] LABS: ANISOCYTOSIS SLIGHT; HYPOCHROMIC SLIGHT; LARGE PLATELETS PRESENT; POIKILOCYTOSIS SLIGHT; TARGET CELLS SLIGHT
[2018-04-24 09:17] LABS: BURR CELLS SLIGHT; GIANT PLATELETS PRESENT
[2018-04-24 09:56] LABS: VENOUS BLOOD GAS BASE EXCESS 5.6 mmol/L (0.0-2.0); VENOUS BLOOD GAS PCO2 45 mmHg (40-60); VENOUS BLOOD GAS PO2 83 mm/Hg (30-55); VENOUS BLOOD PH 7.44 (7.32-7.43)
[2018-04-24] MEDS ORDERED: Vancomycin 1 GM 1 GM/250 ML BAG IVPB ONE (10:35)
--- NOTE | 2018-04-24 11:11 | RAD ---
HISTORY: SOB COMPARISON: Chest x-ray performed 04/15/18 TECHNIQUE: Chest, one view. FINDINGS: Examination limited by habitus. LUNGS: No focal consolidation. Please note that chest x-ray has limited sensitivity for the detection of pulmonary masses. PLEURA: No significant pleural effusion identified. No definite pneumothorax . CARDIOVASCULAR: Single lead left-sided AICD. Median sternotomy wires with evidence of CABG. Cardiomegaly. OSSEOUS STRUCTURES: Degenerative changes. Acromioclavicular arthropathy. VISUALIZED UPPER ABDOMEN: Unremarkable. OTHER FINDINGS: None. IMPRESSION: No focal consolidation. Median sternotomy wires with evidence of CABG. Single lead AICD. Cardiomegaly.
[2018-04-24] MEDS ORDERED: Albuterol HFA 90 mcg/actuation (8 g) IH PRN (18:46)
[2018-04-24] MEDS: MethylPREDNISolone 40 mg Vial IVP SCH (21:02)
[2018-04-24] MEDS: (Novolog) Insulin Aspart, Recombinant 100 u/ml 10 ml vial SC SCH (21:05)
--- NOTE | 2018-04-24 21:37 | CP.PCM.HP ---
Past Patient History - Infectious Disease Hx of Infectious Diseases: None - Tetanus Immunizations Tetanus Immunization: Unknown - Past Medical History & Family History Past Medical History?: Yes - Past Social History Smoking Status: Current Some Days Smoker - CARDIAC Hx Atrial Fibrillation: Yes Hx Cardia Arrhythmia: Yes Hx Congestive Heart Failure: Yes Hx Hypercholesterolemia: Yes Hx Hypertension: Yes Hx Pacemaker: Yes - PULMONARY Hx Asthma: Yes Hx Chronic Obstructive Pulmonary Disease (COPD): Yes Hx Emphysema: Yes Hx Pneumonia: Yes - NEUROLOGICAL Hx Seizures: Yes - HEENT Hx HEENT Problems: No - RENAL Hx Chronic Kidney Disease: No - ENDOCRINE/METABOLIC Hx Endocrine Disorders: Yes Hx Diabetes Mellitus Type 2: Yes - HEMATOLOGICAL/ONCOLOGICAL Hx Blood Disorders: Yes - INTEGUMENTARY Hx Dermatological Problems: No - MUSCULOSKELETAL/RHEUMATOLOGICAL Hx Falls: Yes - GASTROINTESTINAL Hx Gastrointestinal Disorders: No - GENITOURINARY/GYNECOLOGICAL Hx Genitourinary Disorders: No - PSYCHIATRIC Hx Depression: Yes Hx Substance Use: No - SURGICAL HISTORY Hx Coronary Artery Bypass Graft: Yes (double) Hx Coronary Stent: Yes (x4) - ANESTHESIA Hx Anesthesia: Yes Hx Anesthesia Reactions: No Hx Malignant Hyperthermia: No Meds Allergies/Adverse Reactions: Allergies Allergy/AdvReac Type Severity Reaction Status Date / Time No Known Allergies Allergy Verified 04/24/18 08:01 Physical Exam - Constitutional Appears: Well - Head Exam Head Exam: ATRAUMATIC, NORMAL INSPECTION, NORMOCEPHALIC - Eye Exam Eye Exam: EOMI, Normal appearance, PERRL Pupil Exam: NORMAL ACCOMODATION, PERRL - ENT Exam ENT Exam: Mucous Membranes Moist, Normal Exam - Neck Exam Neck exam: Positive for: Normal Inspection - Respiratory Exam Respiratory Exam: Decreased Breath Sounds - Cardiovascular Exam Cardiovascular Exam: REGULAR RHYTHM, +S1, +S2 - GI/Abdominal Exam GI & Abdominal Exam: Diminished Bowel Sounds, Soft - Rectal Exam Rectal Exam: Deferred Results - Vital Signs Recent Vital Signs: Last Vital Signs Temp 97.8 F 04/24/18 15:34 Pulse 105 H 04/24/18 16:00 Resp 20 04/24/18 15:34 BP 122/84 04/24/18 15:34 Pulse Ox 98 04/24/18 15:34 - Labs Result Diagrams: 04/24/18 08:23 04/24/18 08:23 Labs: Laboratory Results - last 24 hr 04/24/18 04/24/18 04/24/18 08:23 08:23 08:23 WBC 25.3 H D RBC 3.93 L Hgb 11.6 L Hct 36.5 MCV 93.1 MCH 29.5 MCHC 31.7 L RDW 16.4 H Plt Count 462 H MPV 8.8 Neut % (Auto) 79.8 H Lymph % (Auto) 9.1 L [place] % (Auto) 10.4 H Eos % (Auto) 0.3 Baso % (Auto) 0.4 Neut # (Auto) 20.2 H Lymph # (Auto) 2.3 [place] # (Auto) 2.6 H Eos # (Auto) 0.1 Baso # (Auto) 0.1 Neutrophils % (Manual) 82 H Lymphocytes % (Manual) 7 L Monocytes % (Manual) 11 H Platelet Estimate Slightly increased H Large Platelets Present Giant Platelets Present Hypochromasia (manual) Slight Poikilocytosis (manual Slight Anisocytosis (manual) Slight Target Cells Slight [place] Cells Slight PT 10.9 INR 1.0 APTT 28 pO2 VBG pH VBG pCO2 VBG HCO3 VBG Total CO2 VBG O2 Sat (Calc) VBG Base Excess VBG Potassium Glucose Lactate FiO2 Expiratory BiPAP Sodium 131 L Potassium 5.1 Chloride 98 Carbon Dioxide 23 Anion Gap 15 BUN 16 Creatinine 0.5 L Est GFR ( Amer) > 60 Est GFR (Non-Af Amer) > 60 POC Glucose (mg/dL) Random Glucose 142 H Calcium 8.9 Total Bilirubin 0.8 AST 148 H D ALT 237 H D Alkaline Phosphatase 312 H Troponin I 0.0220 NT-Pro-B Natriuret Pep 480 Total Protein 7.6 Albumin 4.2 Globulin 3.4 Albumin/Globulin Ratio 1.2 Venous Blood Potassium Urine Color Urine Clarity Urine pH Ur Specific [place] Urine Protein Urine Glucose (UA) Urine Ketones Urine Blood Urine Nitrate Urine Bilirubin Urine Urobilinogen Ur Leukocyte Esterase Urine WBC (Auto) Urine RBC (Auto) Alcohol, Quantitative 10 04/24/18 04/24/18 04/24/18 08:47 09:52 16:13 WBC RBC Hgb Hct MCV MCH MCHC RDW Plt Count MPV Neut % (Auto) Lymph % (Auto) [place] % (Auto) Eos % (Auto) Baso % (Auto) Neut # (Auto) Lymph # (Auto) [place] # (Auto) Eos # (Auto) Baso # (Auto) Neutrophils % (Manual) Lymphocytes % (Manual) Monocytes % (Manual) Platelet Estimate Large Platelets Giant Platelets Hypochromasia (manual) Poikilocytosis (manual Anisocytosis (manual) Target Cells [place] Cells PT INR APTT pO2 83 H VBG pH 7.44 H VBG pCO2 45 VBG HCO3 29.3 VBG Total CO2 32.0 H VBG O2 Sat (Calc) 98.4 H VBG Base Excess 5.6 H VBG Potassium 6.0 H Glucose 133 H Lactate 1.6 FiO2 100.0 Expiratory BiPAP 5 Sodium 131.0 L Potassium Chloride 101.0 Carbon Dioxide Anion Gap BUN Creatinine Est GFR ( Amer) Est GFR (Non-Af Amer) POC Glucose (mg/dL) 328 H Random Glucose Calcium Total Bilirubin AST ALT Alkaline Phosphatase Troponin I NT-Pro-B Natriuret Pep Total Protein Albumin Globulin Albumin/Globulin Ratio Venous Blood Potassium 6.0 H Urine Color Yellow Urine Clarity Clear Urine pH 5.0 Ur Specific [place] 1.013 Urine Protein Negative Urine Glucose (UA) Normal Urine Ketones Negative Urine Blood Negative Urine Nitrate Negative Urine Bilirubin Negative Urine Urobilinogen Normal Ur Leukocyte Esterase Neg Urine WBC (Auto) 1 Urine RBC (Auto) < 1 Alcohol, Quantitative 04/24/18 21:03 WBC RBC Hgb Hct MCV MCH MCHC RDW Plt Count MPV Neut % (Auto) Lymph % (Auto) [place] % (Auto) Eos % (Auto) Baso % (Auto) Neut # (Auto) Lymph # (Auto) [place] # (Auto) Eos # (Auto) Baso # (Auto) Neutrophils % (Manual) Lymphocytes % (Manual) Monocytes % (Manual) Platelet Estimate Large Platelets [place] Platelets Hypochromasia (manual) Poikilocytosis (manual Anisocytosis (manual) Target Cells [place] Cells PT INR APTT pO2 VBG pH VBG pCO2 VBG HCO3 VBG Total CO2 VBG O2 Sat (Calc) VBG Base Excess VBG Potassium Glucose Lactate FiO2 Expiratory BiPAP Sodium Potassium Chloride Carbon Dioxide Anion Gap BUN Creatinine Est GFR ( Amer) Est GFR (Non-Af Amer) POC Glucose (mg/dL) 229 H Random Glucose Calcium Total Bilirubin AST ALT Alkaline Phosphatase Troponin I NT-Pro-B Natriuret Pep Total Protein Albumin Globulin Albumin/Globulin Ratio Venous Blood Potassium Urine Color Urine Clarity Urine pH Ur Specific [place] Urine Protein Urine Glucose (UA) Urine Ketones Urine Blood Urine Nitrate Urine Bilirubin Urine Urobilinogen Ur Leukocyte Esterase Urine WBC (Auto) Urine RBC (Auto) Alcohol, Quantitative
[2018-04-25] MEDS: Albuterol-Ipratrop 3 mg / 0.5 (3 ml) UD INH SCH ×4 (01:19→20:36)
[2018-04-25] MEDS: MethylPREDNISolone 40 mg Vial IVP SCH ×3 (05:54→22:17)
[2018-04-25] MEDS ORDERED: Fluticasone-Vilanterol 100/25mcg Diskus INH SCH (08:00)
[2018-04-25] MEDS: (Novolog) Insulin Aspart, Recombinant 100 u/ml 10 ml vial SC SCH ×4 (08:44→21:46)
[2018-04-25] MEDS: Enoxaparin 30 mg Syringe SC SCH (09:48)
[2018-04-25] MEDS: Azithromycin 500 MG in Sodium Chloride 0.9% 250 ML IVPB SCH (09:52)
[2018-04-25] MEDS: Fluticasone-Vilanterol 100/25mcg Diskus INH SCH (13:32)
--- NOTE | 2018-04-25 15:17 | CP.PCM.CON ---
History of Present Illness - History of Present Illness History of Present Illness: Reason for Consultation: Shortness of breath Patient is a 57 y/o male with PMHX of Atrial fibrillation, asthma, substance abuse, CHF(Ejection Fraction 15%), COPD, and HTN presents to ED complaining of nausea and SOB that began this morning. Patient was discharged yesterday after being hospitalized for 2 weeks. He admits to having productive cough of white clear phlegm and occasional SOB that has improved since admission. He denies any fevers, chills, night sweats, chest pain, and hemoptysis. PMHX: Asthma, Atrial fibrillation, Back Problems, CHF, COPD, Depression, Emphysema, HTN, Hypercholesterolemia, Pneumonia, Seizures PSHX: CABG (Double), Coronary Stent x 4, Pacemaker MEDS: as per chart ALL: NKDA FAMILY HX: Unknown SOCIAL: Current Smoking and EtOH use. Denies Drugs Physical Exam Oxygen Saturation 93%Room General: AAO x3, NAD Cardio: S1. S2. No murmurs, rubs, gallops Resp: Inspiratory/Expiratory Wheezing Bilaterally Abd: Soft, Non-tender. No rebound, rigidity, guarding Chest X-Ray 04/24/18 - No Focal consolidation. Median Sternotomy with evidence of CABG. Single Lead AICD. Cardiomegaly. A/P 1. Acute COPD Exacerbation -Start Duonebs -Start Corticosteroids - Pulmonary Function Testing Past Patient History - Infectious Disease Hx of Infectious Diseases: None - Tetanus Immunizations Tetanus Immunization: Unknown - Past Medical History & Family History Past Medical History?: Yes - Past Social History Smoking Status: Current Some Days Smoker - CARDIAC Hx Atrial Fibrillation: Yes Hx Cardia Arrhythmia: Yes Hx Congestive Heart Failure: Yes Hx Hypercholesterolemia: Yes Hx Hypertension: Yes Hx Pacemaker: Yes - PULMONARY Hx Asthma: Yes Hx Chronic Obstructive Pulmonary Disease (COPD): Yes Hx Emphysema: Yes Hx Pneumonia: Yes - NEUROLOGICAL Hx Seizures: Yes - HEENT Hx HEENT Problems: No - RENAL Hx Chronic Kidney Disease: No - ENDOCRINE/METABOLIC Hx Endocrine Disorders: Yes Hx Diabetes Mellitus Type 2: Yes - HEMATOLOGICAL/ONCOLOGICAL Hx Blood Disorders: Yes - INTEGUMENTARY Hx Dermatological Problems: No - MUSCULOSKELETAL/RHEUMATOLOGICAL Hx Falls: Yes - GASTROINTESTINAL Hx Gastrointestinal Disorders: No - GENITOURINARY/GYNECOLOGICAL Hx Genitourinary Disorders: No - PSYCHIATRIC Hx Depression: Yes Hx Substance Use: No - SURGICAL HISTORY Hx Coronary Artery Bypass Graft: Yes (double) Hx Coronary Stent: Yes (x4) - ANESTHESIA Hx Anesthesia: Yes Hx Anesthesia Reactions: No Hx Malignant Hyperthermia: No Meds Allergies/Adverse Reactions: Allergies Allergy/AdvReac Type Severity Reaction Status Date / Time No Known Allergies Allergy Verified 04/24/18 08:01 - Medications Medications: Current Medications Albuterol (Ventolin Hfa 90 Mcg/Actuation (8 G)) 1 puff IH RQID PRN PRN Reason: Wheezing Albuterol/Ipratropium (Duoneb 3 Mg/0.5 Mg (3 Ml) Ud) 3 ml INH RQ6 [facility] Last Admin: 04/25/18 13:32 Dose: Not Given Apixaban (Eliquis) 5 mg PO BID [facility] Last Admin: 04/25/18 09:47 Dose: 5 mg Aspirin (Aspirin Chewable) 81 mg PO DAILY [facility] Last Admin: 04/25/18 09:48 Dose: 81 mg Carvedilol (Coreg) 6.25 mg PO BID [facility] Last Admin: 04/25/18 09:48 Dose: 6.25 mg Digoxin (Lanoxin) 0.25 mg PO DAILY@1800 [facility] Enoxaparin Sodium (Lovenox) 30 mg SC DAILY [facility] Last Admin: 04/25/18 09:48 Dose: 30 mg Fluticasone/Vilanterol (Breo Ellipta 100-25 Mcg Inh) 1 puff INH RQD [facility] Last Admin: 04/25/18 13:32 Dose: Not Given Folic Acid (Folic Acid) 1 mg PO DAILY [facility] Last Admin: 04/25/18 09:48 Dose: 1 mg Furosemide (Lasix) 40 mg PO DAILY [facility] Last Admin: 04/25/18 09:53 Dose: 40 mg Azithromycin 500 mg/ Sodium (Chloride) 250 mls @ 250 mls/hr IVPB DAILY [facility]; Protocol Last Admin: 04/25/18 09:52 Dose: 250 mls/hr Ceftriaxone Sodium 1 gm/ (Sodium Chloride) 100 mls @ 100 mls/hr IVPB DAILY [facility]; Protocol Last Admin: 04/25/18 09:49 Dose: 100 mls/hr Insulin Aspart (Novolog) 0 unit SC ACHS [facility]; Protocol Last Admin: 04/25/18 12:15 Dose: 4 units Levetiracetam (Keppra) 500 mg PO BID [facility] Last Admin: 04/25/18 09:48 Dose: 500 mg Lisinopril (Zestril) 5 mg PO DAILY [facility] Last Admin: 04/25/18 09:48 Dose: 5 mg Methylprednisolone (Solu-Medrol) 40 mg IVP Q8 [facility] Last Admin: 04/25/18 13:06 Dose: 40 mg Montelukast Sodium (Singulair) 10 mg PO DAILY [facility] Montelukast Sodium (Singulair) 10 mg PO HS [facility] Last Admin: 04/24/18 21:01 Dose: 10 mg Rosuvastatin Calcium (Crestor) 20 mg PO HS [facility] Spironolactone (Aldactone) 25 mg PO BID [facility] Last Admin: 04/25/18 09:48 Dose: 25 mg Tamsulosin HCl (Flomax) 0.4 mg PO DAILY [facility] Last Admin: 04/25/18 09:48 Dose: 0.4 mg Thiamine HCl (Vitamin B1 Tab) 100 mg PO DAILY [facility] Last Admin: 04/25/18 09:54 Dose: 100 mg Tramadol HCl (Ultram) 50 mg PO TID PRN PRN Reason: Pain, moderate (4-7) Last Admin: 04/25/18 13:13 Dose: 50 mg Results - Vital Signs Recent Vital Signs: Last Vital Signs Temp 98.2 F 04/25/18 07:00 Pulse 64 04/25/18 10:00 Resp 20 04/25/18 07:00 BP 144/86 04/25/18 09:53 Pulse Ox 93 L 04/25/18 07:00 - Labs Result Diagrams: 04/24/18 08:23 04/24/18 08:23 Labs: Laboratory Results - last 24 hr 04/24/18 04/24/18 04/24/18 16:13 21:03 21:45 POC Glucose (mg/dL) 328 H 229 H 236 H
--- NOTE | 2018-04-25 17:27 | CARD ---
APPROVED REPORT Date of service: 04/24/2018 EKG Measurement Heart [id number] CT [id number] <Conclusion> Sinus tachycardia Left ventricular hypertrophy with repolarization abnormality Abnormal ECG
[2018-04-25] MEDS: Digoxin 250 mcg (0.25 mg) Tab PO SCH (17:54)
--- NOTE | 2018-04-25 19:00 | CP.PCM.PN ---
Subjective - Date & Time of Evaluation Date of Evaluation: 04/25/18 Time of Evaluation: 11:45 - Subjective Subjective: clinically same Objective - Vital Signs/Intake and Output Vital Signs (last 24 hours): Temp Pulse Resp BP Pulse Ox 97.5 F L 90 20 121/71 100 04/25/18 15:21 04/25/18 15:21 04/25/18 15:21 04/25/18 15:21 04/25/18 15:21 - Medications Medications: Current Medications Albuterol (Ventolin Hfa 90 Mcg/Actuation (8 G)) 1 puff IH RQID PRN PRN Reason: Wheezing Albuterol/Ipratropium (Duoneb 3 Mg/0.5 Mg (3 Ml) Ud) 3 ml INH RQ6 [facility] Last Admin: 04/25/18 13:32 Dose: Not Given Apixaban (Eliquis) 5 mg PO BID [facility] Last Admin: 04/25/18 17:54 Dose: 5 mg Aspirin (Aspirin Chewable) 81 mg PO DAILY [facility] Last Admin: 04/25/18 09:48 Dose: 81 mg Carvedilol (Coreg) 6.25 mg PO BID [facility] Last Admin: 04/25/18 17:55 Dose: 6.25 mg Digoxin (Lanoxin) 0.25 mg PO DAILY@1800 [facility] Last Admin: 04/25/18 17:54 Dose: 0.25 mg Enoxaparin Sodium (Lovenox) 30 mg SC DAILY [facility] Last Admin: 04/25/18 09:48 Dose: 30 mg Fluticasone/Vilanterol (Breo Ellipta 100-25 Mcg Inh) 1 puff INH RQD [facility] Last Admin: 04/25/18 13:32 Dose: Not Given Folic Acid (Folic Acid) 1 mg PO DAILY [facility] Last Admin: 04/25/18 09:48 Dose: 1 mg Furosemide (Lasix) 40 mg PO DAILY [facility] Last Admin: 04/25/18 09:53 Dose: 40 mg Azithromycin 500 mg/ Sodium (Chloride) 250 mls @ 250 mls/hr IVPB DAILY [facility]; Protocol Last Admin: 04/25/18 09:52 Dose: 250 mls/hr Ceftriaxone Sodium 1 gm/ (Sodium Chloride) 100 mls @ 100 mls/hr IVPB DAILY [facility]; Protocol Last Admin: 04/25/18 09:49 Dose: 100 mls/hr Insulin Aspart (Novolog) 0 unit SC ACHS [facility]; Protocol Last Admin: 04/25/18 17:55 Dose: 2 units Levetiracetam (Keppra) 500 mg PO BID [facility] Last Admin: 04/25/18 17:55 Dose: 500 mg Lisinopril (Zestril) 5 mg PO DAILY [facility] Last Admin: 04/25/18 09:48 Dose: 5 mg Methylprednisolone (Solu-Medrol) 40 mg IVP Q8 [facility] Last Admin: 04/25/18 13:06 Dose: 40 mg Montelukast Sodium (Singulair) 10 mg PO DAILY [facility] Montelukast Sodium (Singulair) 10 mg PO HS [facility] Last Admin: 04/24/18 21:01 Dose: 10 mg Rosuvastatin Calcium (Crestor) 20 mg PO HS [facility] Spironolactone (Aldactone) 25 mg PO BID [facility] Last Admin: 04/25/18 17:55 Dose: 25 mg Tamsulosin HCl (Flomax) 0.4 mg PO DAILY [facility] Last Admin: 04/25/18 09:48 Dose: 0.4 mg Thiamine HCl (Vitamin B1 Tab) 100 mg PO DAILY [facility] Last Admin: 04/25/18 09:54 Dose: 100 mg Tramadol HCl (Ultram) 50 mg PO TID PRN PRN Reason: Pain, moderate (4-7) Last Admin: 04/25/18 13:13 Dose: 50 mg - Labs Labs: 04/24/18 08:23 04/24/18 08:23 PT 10.9 SECONDS (9.7-12.2) 04/24/18 08:23 INR 1.0 04/24/18 08:23 APTT 28 SECONDS (21-34) 04/24/18 08:23 - Constitutional Appears: Well - Head Exam Head Exam: ATRAUMATIC, NORMAL INSPECTION, NORMOCEPHALIC - Eye Exam Eye Exam: EOMI, Normal appearance, PERRL Pupil Exam: NORMAL ACCOMODATION, PERRL - ENT Exam ENT Exam: Mucous Membranes Moist, Normal Exam - Neck Exam Neck Exam: Full ROM, Normal Inspection. absent: Lymphadenopathy - Respiratory Exam Respiratory Exam: Decreased Breath Sounds - Cardiovascular Exam Cardiovascular Exam: REGULAR RHYTHM, +S1, +S2 - GI/Abdominal Exam GI & Abdominal Exam: Soft, Diminished Bowel Sounds - Rectal Exam Rectal Exam: Deferred
[2018-04-26] MEDS: Albuterol-Ipratrop 3 mg / 0.5 (3 ml) UD INH SCH ×4 (01:18→20:05)
[2018-04-26] MEDS: MethylPREDNISolone 40 mg Vial IVP SCH ×3 (06:06→21:39)
[2018-04-26] MEDS ORDERED: guaiFENesin 100 mg/5 ml Syrup UD PO STA (06:13)
[2018-04-26] MEDS: (Novolog) Insulin Aspart, Recombinant 100 u/ml 10 ml vial SC SCH ×4 (08:30→21:39)
[2018-04-26] MEDS: Azithromycin 500 MG in Sodium Chloride 0.9% 250 ML IVPB SCH (09:16)
[2018-04-26] MEDS: Enoxaparin 30 mg Syringe SC SCH ×2 (09:17→09:23)
[2018-04-26] MEDS: Fluticasone-Vilanterol 100/25mcg Diskus INH SCH (13:42)
[2018-04-26] MEDS: Digoxin 250 mcg (0.25 mg) Tab PO SCH (17:42)
--- NOTE | 2018-04-26 18:24 | CP.PCM.PN ---
Subjective - Date & Time of Evaluation Date of Evaluation: 04/26/18 Time of Evaluation: 18:23 - Subjective Subjective: Pulmonary follow up, Covering Dr Gonzalez The Patient was seen and examined at the bedside, Medical records reviewed, and management issues were discussed and formulated with the house staff. Events reviewed Patient is a 57 years old male with past medical history of hypertension, atrial fibrillation, substance abuse, congestive heart failure with reduced ejection fraction EF 15%, CAD S/P CABG (Double), Coronary Stent x 4, asthma and chronic obstructive pulmonary disease who initially presented to the emergency room with complaint of nausea and worsening shortness of breath that started on the day of admission He admits to having productive cough of white clear phlegm and occasional SOB that has improved since admission. He denies any fevers, chills, night sweats, chest pain, and hemoptysis. Of note the patient was discharged from the hospital yesterday after being hospitalized for 2 weeks Pulmonary Consultation for Shortness of breath Chest X-Ray 04/24/18 - No Focal consolidation. Median Sternotomy with evidence of CABG. Single Lead AICD. Cardiomegaly. On today's exam he is awake, comfortable in no apparent distress Patient stated that her cough has improved denies chest pain or shortness of breath No fever/chills Objective - Vital Signs/Intake and Output Vital Signs (last 24 hours): Temp Pulse Resp BP Pulse Ox 98.8 F 89 18 117/71 98 04/26/18 15:37 04/26/18 15:37 04/26/18 15:37 04/26/18 15:37 04/26/18 15:37 Intake and Output: 04/26/18 04/26/18 06:59 18:59 Intake Total 100 850 Output Total 600 Balance -500 850 - Medications Medications: Current Medications Albuterol (Ventolin Hfa 90 Mcg/Actuation (8 G)) 1 puff IH RQID PRN PRN Reason: Wheezing Albuterol/Ipratropium (Duoneb 3 Mg/0.5 Mg (3 Ml) Ud) 3 ml INH RQ6 [facility] Last Admin: 04/26/18 13:41 Dose: Not Given Apixaban (Eliquis) 5 mg PO BID [facility] Last Admin: 04/26/18 17:42 Dose: 5 mg Aspirin (Aspirin Chewable) 81 mg PO DAILY [facility] Last Admin: 04/26/18 09:15 Dose: 81 mg Carvedilol (Coreg) 6.25 mg PO BID [facility] Last Admin: 04/26/18 17:43 Dose: 6.25 mg Digoxin (Lanoxin) 0.25 mg PO DAILY@1800 [facility] Last Admin: 04/26/18 17:42 Dose: 0.25 mg Fluticasone/Vilanterol (Breo Ellipta 100-25 Mcg Inh) 1 puff INH RQD [facility] Last Admin: 04/26/18 13:42 Dose: Not Given Folic Acid (Folic Acid) 1 mg PO DAILY [facility] Last Admin: 04/26/18 09:15 Dose: 1 mg Furosemide (Lasix) 40 mg PO DAILY [facility] Last Admin: 04/26/18 09:15 Dose: 40 mg Azithromycin 500 mg/ Sodium (Chloride) 250 mls @ 250 mls/hr IVPB DAILY [facility]; Protocol Last Admin: 04/26/18 09:16 Dose: 250 mls/hr Ceftriaxone Sodium 1 gm/ (Sodium Chloride) 100 mls @ 100 mls/hr IVPB DAILY [facility]; Protocol Last Admin: 04/26/18 09:16 Dose: 100 mls/hr Insulin Aspart (Novolog) 0 unit SC ACHS [facility]; Protocol Last Admin: 04/26/18 17:41 Dose: 5 units Levetiracetam (Keppra) 500 mg PO BID [facility] Last Admin: 04/26/18 17:42 Dose: 500 mg Lisinopril (Zestril) 5 mg PO DAILY [facility] Last Admin: 04/26/18 09:15 Dose: 5 mg Methylprednisolone (Solu-Medrol) 40 mg IVP Q8 [facility] Last Admin: 04/26/18 12:59 Dose: 40 mg Montelukast Sodium (Singulair) 10 mg PO DAILY [facility] Last Admin: 04/26/18 10:18 Dose: Not Given Montelukast Sodium (Singulair) 10 mg PO HS [facility] Last Admin: 04/25/18 22:17 Dose: 10 mg Rosuvastatin Calcium (Crestor) 20 mg PO HS [facility] Last Admin: 04/25/18 22:17 Dose: 20 mg Spironolactone (Aldactone) 25 mg PO BID [facility] Last Admin: 04/26/18 17:42 Dose: 25 mg Tamsulosin HCl (Flomax) 0.4 mg PO DAILY [facility] Last Admin: 04/26/18 09:16 Dose: 0.4 mg Thiamine HCl (Vitamin B1 Tab) 100 mg PO DAILY [facility] Last Admin: 04/26/18 09:15 Dose: 100 mg Tramadol HCl (Ultram) 50 mg PO TID PRN PRN Reason: Pain, moderate (4-7) Last Admin: 04/26/18 08:33 Dose: 50 mg - Labs Labs: 04/24/18 08:23 04/24/18 08:23 PT 10.9 SECONDS (9.7-12.2) 04/24/18 08:23 INR 1.0 04/24/18 08:23 APTT 28 SECONDS (21-34) 04/24/18 08:23 - Constitutional Appears: Well, Non-toxic - Head Exam Head Exam: ATRAUMATIC, NORMAL INSPECTION, NORMOCEPHALIC - Neck Exam Neck Exam: Full ROM - Respiratory Exam Respiratory Exam: Decreased Breath Sounds, Wheezes. absent: Accessory Muscle Use, Chest Wall Tenderness - Cardiovascular Exam Cardiovascular Exam: REGULAR RHYTHM, +S1, +S2. absent: Murmur - GI/Abdominal Exam GI & Abdominal Exam: Soft, Normal Bowel Sounds. absent: Tenderness Assessment and Plan (1) Chr obstructive pulmonary disease w/ acute lower respiratory infxn Status: Acute (2) Acute exacerbation of chronic obstructive pulmonary disease (COPD) Status: Acute - Assessment and Plan (Free Text) Assessment: Acute COPD Exacerbation - Continue Duonebs 1 puff IH RQID PRN - Continue Breo Ellipta 100-25 Mcg IH 1 puff INH RQD [facility] - Continue Corticosteroids with IV Solu-Medrol) 40 mg IVP Q8 - Pulmonary Function Testing out patient - Continue IV Antibiotics with Azithromycin 500 mg IVPB DAILY Ceftriaxone Sodium 1 gm IVPB DAILY
--- NOTE | 2018-04-26 19:26 | CP.PCM.PN ---
Subjective - Date & Time of Evaluation Date of Evaluation: 04/26/18 Time of Evaluation: 11:00 - Subjective Subjective: clinically same Objective - Vital Signs/Intake and Output Vital Signs (last 24 hours): Temp Pulse Resp BP Pulse Ox 98.8 F 89 18 117/71 98 04/26/18 15:37 04/26/18 15:37 04/26/18 15:37 04/26/18 15:37 04/26/18 15:37 Intake and Output: 04/26/18 04/27/18 18:59 06:59 Intake Total 850 Balance 850 - Medications Medications: Current Medications Albuterol (Ventolin Hfa 90 Mcg/Actuation (8 G)) 1 puff IH RQID PRN PRN Reason: Wheezing Albuterol/Ipratropium (Duoneb 3 Mg/0.5 Mg (3 Ml) Ud) 3 ml INH RQ6 [facility] Last Admin: 04/26/18 13:41 Dose: Not Given Apixaban (Eliquis) 5 mg PO BID [facility] Last Admin: 04/26/18 17:42 Dose: 5 mg Aspirin (Aspirin Chewable) 81 mg PO DAILY [facility] Last Admin: 04/26/18 09:15 Dose: 81 mg Carvedilol (Coreg) 6.25 mg PO BID [facility] Last Admin: 04/26/18 17:43 Dose: 6.25 mg Digoxin (Lanoxin) 0.25 mg PO DAILY@1800 [facility] Last Admin: 04/26/18 17:42 Dose: 0.25 mg Fluticasone/Vilanterol (Breo Ellipta 100-25 Mcg Inh) 1 puff INH RQD [facility] Last Admin: 04/26/18 13:42 Dose: Not Given Folic Acid (Folic Acid) 1 mg PO DAILY [facility] Last Admin: 04/26/18 09:15 Dose: 1 mg Furosemide (Lasix) 40 mg PO DAILY [facility] Last Admin: 04/26/18 09:15 Dose: 40 mg Azithromycin 500 mg/ Sodium (Chloride) 250 mls @ 250 mls/hr IVPB DAILY [facility]; Protocol Last Admin: 04/26/18 09:16 Dose: 250 mls/hr Ceftriaxone Sodium 1 gm/ (Sodium Chloride) 100 mls @ 100 mls/hr IVPB DAILY [facility]; Protocol Last Admin: 04/26/18 09:16 Dose: 100 mls/hr Insulin Aspart (Novolog) 0 unit SC [facility]; Protocol Last Admin: 04/26/18 17:41 Dose: 5 units Levetiracetam (Keppra) 500 mg PO BID [facility] Last Admin: 04/26/18 17:42 Dose: 500 mg Lisinopril (Zestril) 5 mg PO DAILY [facility] Last Admin: 04/26/18 09:15 Dose: 5 mg Methylprednisolone (Solu-Medrol) 40 mg IVP Q8 [facility] Last Admin: 04/26/18 12:59 Dose: 40 mg Montelukast Sodium (Singulair) 10 mg PO DAILY [facility] Last Admin: 04/26/18 10:18 Dose: Not Given Montelukast Sodium (Singulair) 10 mg PO [facility] Last Admin: 04/25/18 22:17 Dose: 10 mg Rosuvastatin Calcium (Crestor) 20 mg PO [facility] Last Admin: 04/25/18 22:17 Dose: 20 mg Spironolactone (Aldactone) 25 mg PO BID [facility] Last Admin: 04/26/18 17:42 Dose: 25 mg Tamsulosin HCl (Flomax) 0.4 mg PO DAILY [facility] Last Admin: 04/26/18 09:16 Dose: 0.4 mg Thiamine HCl (Vitamin B1 Tab) 100 mg PO DAILY [facility] Last Admin: 04/26/18 09:15 Dose: 100 mg Tramadol HCl (Ultram) 50 mg PO TID PRN PRN Reason: Pain, moderate (4-7) Last Admin: 04/26/18 08:33 Dose: 50 mg - Labs Labs: 04/24/18 08:23 04/24/18 08:23 PT 10.9 SECONDS (9.7-12.2) 04/24/18 08:23 INR 1.0 04/24/18 08:23 APTT 28 SECONDS (21-34) 04/24/18 08:23 - Constitutional Appears: Well - Head Exam Head Exam: ATRAUMATIC, NORMAL INSPECTION, NORMOCEPHALIC - Eye Exam Eye Exam: EOMI, Normal appearance, PERRL Pupil Exam: NORMAL ACCOMODATION, PERRL - ENT Exam ENT Exam: Mucous Membranes Moist, Normal Exam - Neck Exam Neck Exam: Full ROM, Normal Inspection. absent: Lymphadenopathy - Respiratory Exam Respiratory Exam: Decreased Breath Sounds - Cardiovascular Exam Cardiovascular Exam: REGULAR RHYTHM, +S1, +S2 - GI/Abdominal Exam GI & Abdominal Exam: Soft, Diminished Bowel Sounds - Rectal Exam Rectal Exam: Deferred
[2018-04-27] MEDS: Albuterol-Ipratrop 3 mg / 0.5 (3 ml) UD INH SCH ×5 (01:13→20:38)
[2018-04-27 01:16] VITALS: RESP 20
[2018-04-27] MEDS: MethylPREDNISolone 40 mg Vial IVP SCH ×3 (06:09→21:56)
[2018-04-27] MEDS: (Novolog) Insulin Aspart, Recombinant 100 u/ml 10 ml vial SC SCH ×4 (06:59→21:57)
[2018-04-27] MEDS: Fluticasone-Vilanterol 100/25mcg Diskus INH SCH (08:14)
[2018-04-27 08:15] VITALS: O2SAT 98
[2018-04-27] MEDS: Azithromycin 500 MG in Sodium Chloride 0.9% 250 ML IVPB SCH (09:24)
[2018-04-27] MEDS ORDERED: (Novolog) Insulin Aspart, Recombinant 100 u/ml 10 ml vial SC ONE (11:36)
--- NOTE | 2018-04-27 17:08 | CP.PCM.PN ---
Subjective - Date & Time of Evaluation Date of Evaluation: 04/27/18 Time of Evaluation: 11:30 - Subjective Subjective: clinically same Objective - Vital Signs/Intake and Output Vital Signs (last 24 hours): Temp Pulse Resp BP Pulse Ox 97.8 F 91 H 20 103/64 98 04/27/18 15:51 04/27/18 15:51 04/27/18 15:51 04/27/18 15:51 04/27/18 15:51 Intake and Output: 04/27/18 04/27/18 06:59 18:59 Intake Total 650 Balance 650 - Medications Medications: Current Medications Albuterol (Ventolin Hfa 90 Mcg/Actuation (8 G)) 1 puff IH RQID PRN PRN Reason: Wheezing Albuterol/Ipratropium (Duoneb 3 Mg/0.5 Mg (3 Ml) Ud) 3 ml INH RQ6 [facility] Last Admin: 04/27/18 13:31 Dose: Not Given Apixaban (Eliquis) 5 mg PO BID [facility] Last Admin: 04/27/18 09:23 Dose: 5 mg Aspirin (Aspirin Chewable) 81 mg PO DAILY [facility] Last Admin: 04/27/18 09:23 Dose: 81 mg Carvedilol (Coreg) 6.25 mg PO BID [facility] Last Admin: 04/27/18 09:24 Dose: 6.25 mg Digoxin (Lanoxin) 0.25 mg PO DAILY@1800 [facility] Last Admin: 04/26/18 17:42 Dose: 0.25 mg Fluticasone/Vilanterol (Breo Ellipta 100-25 Mcg Inh) 1 puff INH RQD [facility] Last Admin: 04/27/18 08:14 Dose: Not Given Folic Acid (Folic Acid) 1 mg PO DAILY [facility] Last Admin: 04/27/18 09:23 Dose: 1 mg Furosemide (Lasix) 40 mg PO DAILY [facility] Last Admin: 04/27/18 09:23 Dose: 40 mg Azithromycin 500 mg/ Sodium (Chloride) 250 mls @ 250 mls/hr IVPB DAILY [facility]; Protocol Last Admin: 04/27/18 09:24 Dose: 250 mls/hr Ceftriaxone Sodium 1 gm/ (Sodium Chloride) 100 mls @ 100 mls/hr IVPB DAILY [facility]; Protocol Last Admin: 04/27/18 09:24 Dose: 100 mls/hr Insulin Aspart (Novolog) 0 unit SC [facility]; Protocol Last Admin: 04/27/18 12:44 Dose: Not Given Levetiracetam (Keppra) 500 mg PO BID [facility] Last Admin: 04/27/18 09:23 Dose: 500 mg Lisinopril (Zestril) 5 mg PO DAILY [facility] Last Admin: 04/27/18 09:23 Dose: 5 mg Methylprednisolone (Solu-Medrol) 40 mg IVP Q8 [facility] Last Admin: 04/27/18 13:14 Dose: 40 mg Montelukast Sodium (Singulair) 10 mg PO DAILY [facility] Last Admin: 04/27/18 12:45 Dose: Not Given Montelukast Sodium (Singulair) 10 mg PO [facility] Last Admin: 04/25/18 22:17 Dose: 10 mg Rosuvastatin Calcium (Crestor) 20 mg PO [facility] Last Admin: 04/26/18 21:39 Dose: 20 mg Spironolactone (Aldactone) 25 mg PO BID [facility] Last Admin: 04/27/18 09:24 Dose: 25 mg Tamsulosin HCl (Flomax) 0.4 mg PO DAILY [facility] Last Admin: 04/27/18 09:23 Dose: 0.4 mg Thiamine HCl (Vitamin B1 Tab) 100 mg PO DAILY [facility] Last Admin: 04/27/18 09:23 Dose: 100 mg Tramadol HCl (Ultram) 50 mg PO TID PRN PRN Reason: Pain, moderate (4-7) Last Admin: 04/26/18 20:18 Dose: 50 mg - Labs Labs: 04/24/18 08:23 04/24/18 08:23 PT 10.9 SECONDS (9.7-12.2) 04/24/18 08:23 INR 1.0 04/24/18 08:23 APTT 28 SECONDS (21-34) 04/24/18 08:23
--- NOTE | 2018-04-27 17:11 | CP.PCM.PN ---
Subjective - Date & Time of Evaluation Date of Evaluation: 04/27/18 Time of Evaluation: 17:08 - Subjective Subjective: The Patient was seen and examined at the bedside, Medical records reviewed, and management issues were discussed and formulated with the house staff. Events reviewed Patient is a 57 years old male with past medical history of hypertension, atrial fibrillation, substance abuse, congestive heart failure with reduced ejection fraction EF 15%, CAD S/P CABG (Double), Coronary Stent x 4, asthma and chronic obstructive pulmonary disease who initially presented to the emergency room with complaint of nausea and worsening shortness of breath that started on the day of admission He admits to having productive cough of white clear phlegm and occasional SOB that has improved since admission. He denies any fevers, chills, night sweats, chest pain, and hemoptysis. Of note the patient was discharged from the hospital yesterday after being hospitalized for 2 weeks Pulmonary Consultation for Shortness of breath Chest X-Ray 04/24/18 - No Focal consolidation. Median Sternotomy with evidence of CABG. Single Lead AICD. Cardiomegaly. On today's exam he is awake, Oriented Pt looks comfortable but dyspnic on minimal exertions + Bilateral Wheezing noted on exam Patient stated that her cough has improved denies chest pain or shortness of breath No fever/chills Objective - Vital Signs/Intake and Output Vital Signs (last 24 hours): Temp Pulse Resp BP Pulse Ox 97.8 F 91 H 20 103/64 98 04/27/18 15:51 04/27/18 15:51 04/27/18 15:51 04/27/18 15:51 04/27/18 15:51 Intake and Output: 04/27/18 04/27/18 06:59 18:59 Intake Total 650 Balance 650 - Medications Medications: Current Medications Albuterol (Ventolin Hfa 90 Mcg/Actuation (8 G)) 1 puff IH RQID PRN PRN Reason: Wheezing Albuterol/Ipratropium (Duoneb 3 Mg/0.5 Mg (3 Ml) Ud) 3 ml INH RQ6 [facility] Last Admin: 04/27/18 13:31 Dose: Not Given Apixaban (Eliquis) 5 mg PO BID [facility] Last Admin: 04/27/18 09:23 Dose: 5 mg Aspirin (Aspirin Chewable) 81 mg PO DAILY [facility] Last Admin: 04/27/18 09:23 Dose: 81 mg Carvedilol (Coreg) 6.25 mg PO BID [facility] Last Admin: 04/27/18 09:24 Dose: 6.25 mg Digoxin (Lanoxin) 0.25 mg PO DAILY@1800 [facility] Last Admin: 04/26/18 17:42 Dose: 0.25 mg Fluticasone/Vilanterol (Breo Ellipta 100-25 Mcg Inh) 1 puff INH RQD [facility] Last Admin: 04/27/18 08:14 Dose: Not Given Folic Acid (Folic Acid) 1 mg PO DAILY [facility] Last Admin: 04/27/18 09:23 Dose: 1 mg Furosemide (Lasix) 40 mg PO DAILY [facility] Last Admin: 04/27/18 09:23 Dose: 40 mg Azithromycin 500 mg/ Sodium (Chloride) 250 mls @ 250 mls/hr IVPB DAILY [facility]; Protocol Last Admin: 04/27/18 09:24 Dose: 250 mls/hr Ceftriaxone Sodium 1 gm/ (Sodium Chloride) 100 mls @ 100 mls/hr IVPB DAILY [facility]; Protocol Last Admin: 04/27/18 09:24 Dose: 100 mls/hr Insulin Aspart (Novolog) 0 unit SC ACHS [facility]; Protocol Last Admin: 04/27/18 12:44 Dose: Not Given Levetiracetam (Keppra) 500 mg PO BID [facility] Last Admin: 04/27/18 09:23 Dose: 500 mg Lisinopril (Zestril) 5 mg PO DAILY [facility] Last Admin: 04/27/18 09:23 Dose: 5 mg Methylprednisolone (Solu-Medrol) 40 mg IVP Q8 [facility] Last Admin: 04/27/18 13:14 Dose: 40 mg Montelukast Sodium (Singulair) 10 mg PO DAILY [facility] Last Admin: 04/27/18 12:45 Dose: Not Given Montelukast Sodium (Singulair) 10 mg PO HS [facility] Last Admin: 04/25/18 22:17 Dose: 10 mg Rosuvastatin Calcium (Crestor) 20 mg PO HS [facility] Last Admin: 04/26/18 21:39 Dose: 20 mg Spironolactone (Aldactone) 25 mg PO BID [facility] Last Admin: 04/27/18 09:24 Dose: 25 mg Tamsulosin HCl (Flomax) 0.4 mg PO DAILY [facility] Last Admin: 04/27/18 09:23 Dose: 0.4 mg Thiamine HCl (Vitamin B1 Tab) 100 mg PO DAILY [facility] Last Admin: 04/27/18 09:23 Dose: 100 mg Tramadol HCl (Ultram) 50 mg PO TID PRN PRN Reason: Pain, moderate (4-7) Last Admin: 04/26/18 20:18 Dose: 50 mg - Labs Labs: 04/24/18 08:23 04/24/18 08:23 PT 10.9 SECONDS (9.7-12.2) 04/24/18 08:23 INR 1.0 04/24/18 08:23 APTT 28 SECONDS (21-34) 04/24/18 08:23 - Constitutional Appears: Well, Non-toxic - Head Exam Head Exam: ATRAUMATIC, NORMAL INSPECTION - Eye Exam Eye Exam: EOMI, Normal appearance - ENT Exam ENT Exam: Mucous Membranes Dry - Neck Exam Neck Exam: Full ROM, Normal Inspection. absent: Tenderness, Thyromegaly - Respiratory Exam Respiratory Exam: Decreased Breath Sounds, Wheezes. absent: Accessory Muscle Use, Chest Wall Tenderness, Rales, Rhonchi - Cardiovascular Exam Cardiovascular Exam: REGULAR RHYTHM, +S1, +S2. absent: Murmur - GI/Abdominal Exam GI & Abdominal Exam: Soft, Normal Bowel Sounds. absent: Tenderness - Back Exam Back Exam: absent: CVA tenderness (L), CVA tenderness (R) - Neurological Exam Neurological Exam: Alert, Awake, CN II-XII Intact, Normal Gait, Oriented x3. absent: Motor Sensory Deficit Assessment and Plan (1) Chr obstructive pulmonary disease w/ acute lower respiratory infxn Status: Acute (2) Acute exacerbation of chronic obstructive pulmonary disease (COPD) Status: Acute - Assessment and Plan (Free Text) Assessment: Acute COPD Exacerbation - Continue Duonebs 1 puff IH RQID PRN - Continue Breo Ellipta 100-25 Mcg IH 1 puff INH RQD [facility] - Continue Corticosteroids with IV Solu-Medrol) 40 mg IVP Q8 - Pulmonary Function Testing out patient - Use supplemental O2 with caution given CO2 retention - Nocturnal BIPAP 12/6 cmH20 to unload respiratory muscles, FIO2 of 50%, titrate to O2 sat 90-95 - Continue IV Antibiotics with Azithromycin 500 mg IVPB DAILY Ceftriaxone Sodium 1 gm IVPB DAILY
[2018-04-27] MEDS: Digoxin 250 mcg (0.25 mg) Tab PO SCH (17:26)
[2018-04-27 17:28] VITALS: PULSE 80
[2018-04-27] MEDS ORDERED: guaiFENesin 100 mg/5 ml Syrup UD PO STA (21:21)
[2018-04-28] MEDS: Albuterol-Ipratrop 3 mg / 0.5 (3 ml) UD INH SCH ×3 (01:15→13:30)
[2018-04-28] MEDS: MethylPREDNISolone 40 mg Vial IVP SCH (05:33)
[2018-04-28] MEDS: Fluticasone-Vilanterol 100/25mcg Diskus INH SCH (07:30)
[2018-04-28 08:28] VITALS: PULSE 78; TEMP 97.9
[2018-04-28] MEDS: (Novolog) Insulin Aspart, Recombinant 100 u/ml 10 ml vial SC SCH ×2 (08:39→12:29)
[2018-04-28 09:36] VITALS: BP 122/76
[2018-04-28] MEDS: Azithromycin 500 MG in Sodium Chloride 0.9% 250 ML IVPB SCH (09:36)
[2018-04-28] MEDS ORDERED: MethylPREDNISolone 40 mg Vial IVP SCH (10:00)
--- NOTE | 2018-04-28 12:58 | CP.PCM.PN ---
Subjective - Date & Time of Evaluation Date of Evaluation: 04/28/18 Time of Evaluation: 12:58 - Subjective Subjective: The Patient was seen and examined at the bedside, Medical records reviewed, and management issues were discussed and formulated with the house staff. Events reviewed Patient is a 57 years old male with past medical history of hypertension, atrial fibrillation, substance abuse, congestive heart failure with reduced ejection fraction EF 15%, CAD S/P CABG (Double), Coronary Stent x 4, asthma and chronic obstructive pulmonary disease who initially presented to the emergency room with complaint of nausea and worsening shortness of breath that started on the day of admission He admits to having productive cough of white clear phlegm and occasional SOB that has improved since admission. He denies any fevers, chills, night sweats, chest pain, and hemoptysis. Of note the patient was discharged from the hospital yesterday after being hospitalized for 2 weeks Pulmonary Consultation for Shortness of breath Chest X-Ray 04/24/18 - No Focal consolidation. Median Sternotomy with evidence of CABG. Single Lead AICD. Cardiomegaly. On today's exam he is awake, Oriented Pt looks comfortable but dyspnic on minimal exertions + Bilateral Wheezing noted on exam Patient stated that her cough has improved denies chest pain or shortness of breath No fever/chills Objective - Vital Signs/Intake and Output Vital Signs (last 24 hours): Temp Pulse Resp BP Pulse Ox 97.9 F 78 20 122/76 98 04/28/18 07:00 04/28/18 07:00 04/28/18 07:00 04/28/18 09:33 04/28/18 07:00 - Medications Medications: Current Medications Albuterol (Ventolin Hfa 90 Mcg/Actuation (8 G)) 1 puff IH RQID PRN PRN Reason: Wheezing Albuterol/Ipratropium (Duoneb 3 Mg/0.5 Mg (3 Ml) Ud) 3 ml INH RQ6 [facility] Last Admin: 04/28/18 01:15 Dose: Not Given Apixaban (Eliquis) 5 mg PO BID [facility] Last Admin: 04/28/18 09:32 Dose: 5 mg Aspirin (Aspirin Chewable) 81 mg PO DAILY [facility] Last Admin: 04/28/18 09:33 Dose: 81 mg Carvedilol (Coreg) 6.25 mg PO BID [facility] Last Admin: 04/28/18 09:32 Dose: 6.25 mg Digoxin (Lanoxin) 0.25 mg PO DAILY@1800 [facility] Last Admin: 04/27/18 17:26 Dose: 0.25 mg Fluticasone/Vilanterol (Breo Ellipta 100-25 Mcg Inh) 1 puff INH RQD [facility] Last Admin: 04/27/18 08:14 Dose: Not Given Folic Acid (Folic Acid) 1 mg PO DAILY [facility] Last Admin: 04/28/18 09:33 Dose: 1 mg Furosemide (Lasix) 40 mg PO DAILY [facility] Last Admin: 04/28/18 09:33 Dose: 40 mg Azithromycin 500 mg/ Sodium (Chloride) 250 mls @ 250 mls/hr IVPB DAILY [facility]; Protocol Last Admin: 04/28/18 09:36 Dose: 250 mls/hr Ceftriaxone Sodium 1 gm/ (Sodium Chloride) 100 mls @ 100 mls/hr IVPB DAILY [facility]; Protocol Last Admin: 04/28/18 09:33 Dose: 100 mls/hr Insulin Aspart (Novolog) 0 unit SC ACHS [facility]; Protocol Last Admin: 04/28/18 12:29 Dose: 2 units Levetiracetam (Keppra) 500 mg PO BID [facility] Last Admin: 04/28/18 09:34 Dose: 500 mg Lisinopril (Zestril) 5 mg PO DAILY [facility] Last Admin: 04/28/18 09:32 Dose: 5 mg Methylprednisolone (Solu-Medrol) 20 mg IVP Q12 [facility] Last Admin: 04/28/18 09:39 Dose: Not Given Montelukast Sodium (Singulair) 10 mg PO DAILY [facility] Last Admin: 04/28/18 09:33 Dose: Not Given Montelukast Sodium (Singulair) 10 mg PO HS [facility] Last Admin: 04/27/18 22:07 Dose: 10 mg Rosuvastatin Calcium (Crestor) 20 mg PO HS [facility] Last Admin: 04/27/18 21:56 Dose: 20 mg Spironolactone (Aldactone) 25 mg PO BID [facility] Last Admin: 04/28/18 09:32 Dose: 25 mg Tamsulosin HCl (Flomax) 0.4 mg PO DAILY [facility] Last Admin: 04/28/18 09:33 Dose: 0.4 mg Thiamine HCl (Vitamin B1 Tab) 100 mg PO DAILY [facility] Last Admin: 04/28/18 09:33 Dose: 100 mg Tramadol HCl (Ultram) 50 mg PO TID PRN PRN Reason: Pain, moderate (4-7) Last Admin: 04/28/18 05:38 Dose: 50 mg - Labs Labs: 04/24/18 08:23 04/24/18 08:23 PT 10.9 SECONDS (9.7-12.2) 04/24/18 08:23 INR 1.0 04/24/18 08:23 APTT 28 SECONDS (21-34) 04/24/18 08:23 - Constitutional Appears: Well, Non-toxic - Head Exam Head Exam: ATRAUMATIC, NORMAL INSPECTION - Eye Exam Eye Exam: EOMI, PERRL Pupil Exam: NORMAL ACCOMODATION - ENT Exam ENT Exam: Mucous Membranes Moist - Neck Exam Neck Exam: Full ROM, Normal Inspection - Respiratory Exam Respiratory Exam: Clear to Ausculation Bilateral, NORMAL BREATHING PATTERN - Cardiovascular Exam Cardiovascular Exam: REGULAR RHYTHM, +S1, +S2. absent: Murmur - GI/Abdominal Exam GI & Abdominal Exam: Soft, Normal Bowel Sounds. absent: Tenderness - Back Exam Back Exam: absent: CVA tenderness (L), CVA tenderness (R) Assessment and Plan (1) Chr obstructive pulmonary disease w/ acute lower respiratory infxn Status: Acute (2) Acute exacerbation of chronic obstructive pulmonary disease (COPD) Status: Acute - Assessment and Plan (Free Text) Assessment: Acute COPD Exacerbation - Continue Duonebs 1 puff IH RQID PRN - Continue Breo Ellipta 100-25 Mcg IH 1 puff INH RQD [facility] - Continue Corticosteroids with IV Solu-Medrol) 40 mg IVP Q8 - Pulmonary Function Testing out patient - Use supplemental O2 with caution given CO2 retention - Nocturnal BIPAP 12/6 cmH20 to unload respiratory muscles, FIO2 of 50%, titrate to O2 sat 90-95 - Continue IV Antibiotics with Azithromycin 500 mg IVPB DAILY Ceftriaxone Sodium 1 gm IVPB DAILY
== END 2018-04-28 15:08 | disposition left against medical advice (07) | DRG 88 ==
LOC: C.ER 07:50 → C.6T 10:13
PROVIDERS: ADMIT Internal Medicine Nephrology; ATTEND Internal Medicine Nephrology
PROC: 5A09457 Assistance with Respiratory Ventilation, 24-96 Consecutive Hours, Continuous Positive Airway Pressure (ICD-10-PCS; principal; 2018-04-24)
DX: J44.1 Chronic obstructive pulmonary disease with (acute) exacerbation (principal); E87.2 Acidosis; I11.0 Hypertensive heart disease with heart failure; I50.9 Heart failure, unspecified; I25.10 Atherosclerotic heart disease of native coronary artery without angina pectoris; I48.91 Unspecified atrial fibrillation; E11.9 Type 2 diabetes mellitus without complications; E78.00 Pure hypercholesterolemia, unspecified; F17.210 Nicotine dependence, cigarettes, uncomplicated; Z95.0 Presence of cardiac pacemaker; Z95.1 Presence of aortocoronary bypass graft; Z95.5 Presence of coronary angioplasty implant and graft; J44.0 Chronic obstructive pulmonary disease with (acute) lower respiratory infection

== ENCOUNTER 2018-04-29 17:42 | Emergency (ER) | payer OTHER ==
[2018-04-29 17:42] VITALS: PULSE 80; BMI 11.7
[2018-04-29 17:54] VITALS: BP 126/75; PULSE 88; RESP 20; TEMP 97.8; O2SAT 97
--- NOTE | 2018-04-29 22:53 | C.PDOC ---
History Of Present Illness Patient left the ED prior to my evaluation. Time Seen by Provider: 04/29/18 22:18 Chief Complaint (Nursing): Cough, Cold, Congestion History Per: Patient Current Symptoms Are (Timing): Still Present Reports Recently: Hospitalized Recent travel outside of the [place]: No Additional History Per: Patient Past Medical History Reviewed: Historical Data, Nursing Documentation, Vital Signs Vital Signs: Last Vital Signs Temp 97.8 F 04/29/18 17:50 Pulse 88 04/29/18 17:50 Resp 20 04/29/18 17:50 BP 126/75 04/29/18 17:50 Pulse Ox 97 04/29/18 17:50 - Medical History PMH: Asthma, Atrial Fibrillation, Back Problems, Cardia Arrhythmia, CHF, COPD, Depression, Emphysema, HTN, Hypercholesterolemia, Pneumonia, Seizures Denies: Chronic Kidney Disease Surgical History: CABG (double), Coronary Stent (4), Pacemaker - [facility] Procedures ASSISTANCE WITH RESPIRATORY VENTILATION, 24-96 HRS, CPAP (11/06/16) CORONAR ARTERIOGR-2 CATH (06/24/14) CORONARY ARTERY STENT INSERTION [id number] (06/24/14) DETOXIFICATION SERVICES FOR SUBSTANCE ABUSE TREATMENT (08/12/17) INFLUENZA VACCINATION (04/25/14) INSERTION OF ONE VASCULAR STENT (06/24/14) INTRODUCE OF OTH THERAP SUBST INTO RESP TRACT, VIA OPENING (06/19/15) INTRODUCTION OF SERUM/TOX/VACCINE INTO MUSCLE, PERC APPROACH (01/05/16) LEFT HEART CARDIAC CATH (06/24/14) NEBULIZER THERAPY (07/12/14) PERCUTANEOUS TRANSLUMINAL CORONARY ANGIOPLASTY [PTCA] (06/24/14) PROCEDURE ON SINGLE VESSEL (06/24/14) VACCINATION NEC (04/25/14) Family History: States: Unknown Family Hx, Diabetes - Social History Hx Tobacco Use: Yes Hx Alcohol Use: Yes Hx Substance Use: Yes - Immunization History Hx Tetanus Toxoid Vaccination: No Hx Influenza Vaccination: No Hx Pneumococcal Vaccination: No Review Of Systems Review Of Systems: ROS cannot be obtained secondary to pt's inabilty to answer questions. (LWBS) Physical Exam - Physical Exam Additional Physical Exam Comments: Patient left the ED prior to my evaluation ED Course And Treatment O2 Sat by Pulse Oximetry: 97 (On RA) Pulse Ox Interpretation: Normal Disposition - Disposition Disposition: ELOPEMENT - ER ONLY Disposition Time: 18:00 Condition: GOOD Forms: [facility] (Polish) - Clinical Impression Clinical Impression: Viral syndrome - Scribe Statement The provider has reviewed the documentation as recorded by the Scribe Toribio Moore All medical record entries made by the Scribe were at my direction and personally dictated by me. I have reviewed the chart and agree that the record accurately reflects my personal performance of the history, physical exam, medical decision making, and the department course for this patient. I have also personally directed, reviewed, and agree with the discharge instructions and disposition.
== END 2018-04-29 22:18 | disposition left against medical advice (07) ==
LOC: C.ER 17:42
DX: B34.9 Viral infection, unspecified (principal)

== ENCOUNTER 2018-06-23 00:03 | Inpatient (IN) | payer OTHER ==
[2018-06-23 00:04] VITALS: PULSE 80; BMI 11.7
--- NOTE | 2018-06-23 00:21 | C.PDOC ---
History Of Present Illness Patient presents with SOB beginning tonight. Patient states he has been drinking today, stills smokes half a pack a day, noncompliant with his meds. Denies fever or chills. Time Seen by Provider: 06/23/18 00:20 Chief Complaint (Nursing): Shortness Of Breath History Per: Patient History/Exam Limitations: no limitations Onset/Duration Of Symptoms: Hrs Current Symptoms Are (Timing): Still Present Current Respiratory Medications: See Home Med List Severity: Moderate Pain Scale Rating Of: 4 Associated Symptoms: Other (SOB). denies: Fever, Chills Recent travel outside of the [place]: No Past Medical History Reviewed: Historical Data, Nursing Documentation, Vital Signs Vital Signs: Last Vital Signs Temp 97.9 F 06/23/18 00:11 Pulse 113 H 06/23/18 00:11 Resp 19 06/23/18 00:11 BP 137/83 06/23/18 00:11 Pulse Ox 99 06/23/18 00:11 Primary Care Provider: Juanjose Burkett - Medical History PMH: Asthma, Atrial Fibrillation, Back Problems, Cardia Arrhythmia, CHF, COPD, Depression, Emphysema, HTN, Hypercholesterolemia, Pneumonia, Seizures Denies: Chronic Kidney Disease Surgical History: CABG (double), Coronary Stent (4), Pacemaker - [facility] Procedures ASSISTANCE WITH RESPIRATORY VENTILATION, 24-96 HRS, CPAP (04/24/18) CORONAR ARTERIOGR-2 CATH (06/24/14) CORONARY ARTERY STENT INSERTION [id number] (06/24/14) DETOXIFICATION SERVICES FOR SUBSTANCE ABUSE TREATMENT (08/12/17) INFLUENZA VACCINATION (04/25/14) INSERTION OF ONE VASCULAR STENT (06/24/14) INTRODUCE OF OTH THERAP SUBST INTO RESP TRACT, VIA OPENING (06/19/15) INTRODUCTION OF SERUM/TOX/VACCINE INTO MUSCLE, PERC APPROACH (01/05/16) LEFT HEART CARDIAC CATH (06/24/14) NEBULIZER THERAPY (07/12/14) PERCUTANEOUS TRANSLUMINAL CORONARY ANGIOPLASTY [PTCA] (06/24/14) PROCEDURE ON SINGLE VESSEL (06/24/14) VACCINATION NEC (04/25/14) Family History: States: Diabetes - Social History Hx Tobacco Use: Yes Hx Alcohol Use: Yes Hx Substance Use: Yes - Immunization History Hx Tetanus Toxoid Vaccination: No Hx Influenza Vaccination: No Hx Pneumococcal Vaccination: No Review Of Systems Constitutional: Negative for: Fever, Chills Cardiovascular: Negative for: Chest Pain, Palpitations Respiratory: Positive for: Shortness of Breath. Negative for: Cough Gastrointestinal: Negative for: Nausea, Vomiting Neurological: Negative for: Weakness, Numbness Physical Exam - Physical Exam Appears: Non-toxic Skin: Warm, Dry Head: Normacephalic Eye(s): bilateral: Normal Inspection Oral Mucosa: Moist Neck: Trachea Midline, Supple Chest: Symmetrical, No Tenderness, Other (pacer left chest, sternotomy wires) Cardiovascular: Rhythm Regular Respiratory: No Rales, Rhonchi (Scattered at bases), Wheezing (Diffuse) Gastrointestinal/Abdominal: Soft, No Tenderness Back: No CVA Tenderness Extremity: No Tenderness Extremity: Bilateral: Atraumatic, Normal Color And Temperature, Normal ROM Pulses: Left Dorsalis Pedis: Normal, Right Dorsalis Pedis: Normal Neurological/Psych: Oriented x3 Gait: Unable To Assess ED Course And Treatment - Laboratory Results Result Diagrams: 06/23/18 01:09 06/23/18 01:09 ECG: Interpreted By Me, Viewed By Me ECG Rhythm: Sinus Rhythm (117), ST/T Changes (lat ischemic changes), Nonspecific Changes (unchanged from 04/24/18) O2 Sat by Pulse Oximetry: 99 (Room air) Pulse Ox Interpretation: Normal - Radiology CXR: Interpreted by Me, Viewed By Me CXR Interpretation: No: Infiltrates, Fracture, Pnemothorax Progress Note: Blood work, EKG, CXR, and urinalysis ordered. Duoneb, solumedrol, and IV fluids administered. 3:37 am - no complaints. vitals stable, no wheezing. 4:10 pt getting worse - agitated, increased coughing, denies any chest pain. sat 100%. ordered bipap. 6:10 -spoke with dr [id number] come and see the pt in the ed Critical Care Time - Critical Care Note Total Time (in mins): 30 Documented critical care: time excludes all time spent performing seperately billable procedures. Disposition Discussed With : Quinten Stewart Comment: accepted the pt [facility] is service and took over the care at 6:33AM Doctor Will See Patient In The: Hospital Counseled Patient/Family Regarding: Studies Performed, Diagnosis - Disposition Disposition: HOSPITALIZED Disposition Time: 00:21 Condition: CRITICAL Forms: [facility] (Congolese) - POA Present On Arrival: Poor Glycemic Control - Clinical Impression Clinical Impression: Alcohol intoxication, Alcohol abuse, Acute exacerbation of chronic obstructive pulmonary disease (COPD) - Scribe Statement The provider has reviewed the documentation as recorded by the Scribe Umberto Aviles All medical record entries made by the Scribe were at my direction and personally dictated by me. I have reviewed the chart and agree that the record accurately reflects my personal performance of the history, physical exam, medical decision making, and the department course for this patient. I have also personally directed, reviewed, and agree with the discharge instructions and disposition. Decision To Admit - Pt Status Changed To: Hospital Disposition Of: Inpatient - Admit Certification Admit to Inpatient:: After my assessment, the patient will require hospitalization for at least two midnights. This is because of the severity of symptoms shown, intensity of services needed, and/or the medical risk in this patient being treated as an outpatient. - InPatient: Physician Admission Certification: I certify that this patient requires 2 or more midnights of care for the following reason:: After my assessment, the patient will require hospitalization for at least two midnights. This is because of the severity of symptoms shown, intensity of services needed, and/or the medical risk in this patient being treated as an outpatient. - . Bed Request Type: ICU Admitting Physician: Quinten Stewart Patient Diagnosis: Alcohol intoxication, Alcohol abuse, Acute exacerbation of chronic obstructive pulmonary disease (COPD)
[2018-06-23] MEDS ORDERED: Sodium Chloride 0.9% 1,000 ML IV ONE (00:35)
[2018-06-23 01:21] LABS: MEAN CORPUSCULAR HEMOGLOBIN 26.2 pg (27.0-31.0); MEAN CORPUSCULAR HGB CONC 31.2 g/dL (33.0-37.0); MEAN PLATELET VOLUME 8.2 fL (7.2-11.7); RBC 3.41 Mil/uL (4.40-5.90); RED CELL DISTRIBUTION WIDTH 17.6 % (11.5-14.5); WHITE BLOOD COUNT 9.6 K/uL (4.8-10.8)
[2018-06-23 01:23] LABS: HEMOGLOBIN 8.9 g/dL (12.0-18.0)
[2018-06-23] MEDS: Albuterol-Ipratrop 3 mg / 0.5 (3 ml) UD IH SCH ×2 (01:23→01:24)
[2018-06-23 01:26] LABS: ALB/GLOB RATIO 1.2 (1.0-2.1); ALBUMIN 3.9 g/dL (3.5-5.0); ALT/SGPT 122 U/L (21-72); AST/SGOT 165 U/L (17-59); BLOOD UREA NITROGEN 6 mg/dL (9-20); CALCIUM 8.2 mg/dl (8.6-10.4); GFR NON-AFRICAN AMERICAN > 60
[2018-06-23] MEDS ORDERED: Albuterol-Ipratrop 3 mg / 0.5 (3 ml) UD ONE ×2 (01:29→01:30)
[2018-06-23 01:35] LABS: URINE BILIRUBIN NEGATIVE (NEGATIVE); URINE BLOOD NEGATIVE (NEGATIVE); URINE CLARITY Clear (Clear); URINE COLOR Yellow (YELLOW); URINE GLUCOSE (UA) NORMAL (Normal); URINE LEUKOCYTE ESTERASE NEG Leu/uL (Negative); URINE PROTEIN NEGATIVE (NEGATIVE)
[2018-06-23 01:41] LABS: ABG ALLEN TEST POS; ARTERIAL BLOOD GAS O2 SAT 97.5 % (95-98); ARTERIAL BLOOD GAS PCO2 43 mm/Hg (35-45); ARTERIAL BLOOD GAS PO2 73 mm/Hg (80-100); ARTERIAL BLOOD GAS TCO2 27.9 mmol/L (22-28)
[2018-06-23 02:03] LABS: EOS # 0.1 K/uL (0.0-0.7); LYMPH # 1.4 K/uL (1.0-4.3); MONO # 1.8 K/uL (0.0-0.8); NEUT # 6.4 K/uL (1.8-7.0); NRBC % 0.4 % (0.0-2.0)
[2018-06-23] MEDS ORDERED: Enoxaparin 150 mg Syringe SC STA (05:40)
[2018-06-23] MEDS ORDERED: Enoxaparin 80 mg Syringe ONE (05:50)
[2018-06-23] MEDS ORDERED: Piperacillin/Tazobact 3.375 gm 100 ML IVPB ONE (05:50)
[2018-06-23] MEDS: Piperacillin/Tazobact 3.375 GM in Sodium Chloride 100 ML IVPB SCH ×4 (05:55→23:13)
[2018-06-23 06:01] LABS: INR 1.1; PROTHROMBIN TIME 11.6 SECONDS (9.7-12.2)
[2018-06-23 06:11] LABS: TROPONIN I 0.024 ng/mL (0.00-0.120)
[2018-06-23] MEDS ORDERED: Thiamine 100 mg/ml Inj IV SCH (06:30)
--- NOTE | 2018-06-23 06:50 | CP.PCM.CON ---
History of Present Illness - History of Present Illness History of Present Illness: 57 y/o male with pmx of CAD, severe systolic heart failure, polysubstance abuse, active smoking presents to [facility] with c/o difficulty breathing. Patient was seen on bi-pap, difficulty breathing, poor historian 2nd dyspnea. (+)dyspnea, deneis any chest pain, denies any haeadaches Pmx: cad/chf/etoh abuse Psug hx: s/p AICD sh: (+)ETOH (+)smoking allergies: deneis Review of Systems - Review of Systems Systems not reviewed;Unavailable: Respiratory Distress, Intoxicated Past Patient History - Infectious Disease Hx of Infectious Diseases: None - Tetanus Immunizations Tetanus Immunization: Unknown - Past Medical History & Family History Past Medical History?: Yes - Past Social History Smoking Status: Current Some Days Smoker - CARDIAC Hx Atrial Fibrillation: Yes Hx Cardia Arrhythmia: Yes Hx Congestive Heart Failure: Yes Hx Hypercholesterolemia: Yes Hx Hypertension: Yes Hx Pacemaker: Yes - PULMONARY Hx Asthma: Yes Hx Chronic Obstructive Pulmonary Disease (COPD): Yes Hx Emphysema: Yes Hx Pneumonia: Yes - NEUROLOGICAL Hx Seizures: Yes - HEENT Hx HEENT Problems: No - RENAL Hx Chronic Kidney Disease: No - ENDOCRINE/METABOLIC Hx Endocrine Disorders: Yes Hx Diabetes Mellitus Type 2: Yes - HEMATOLOGICAL/ONCOLOGICAL Hx Blood Disorders: Yes - INTEGUMENTARY Hx Dermatological Problems: No - MUSCULOSKELETAL/RHEUMATOLOGICAL Hx Falls: Yes - GASTROINTESTINAL Hx Gastrointestinal Disorders: No - GENITOURINARY/GYNECOLOGICAL Hx Genitourinary Disorders: No - PSYCHIATRIC Hx Depression: Yes Hx Substance Use: Yes - SURGICAL HISTORY Hx Coronary Artery Bypass Graft: Yes (double) Hx Coronary Stent: Yes (4) - ANESTHESIA Hx Anesthesia: Yes Hx Anesthesia Reactions: No Hx Malignant Hyperthermia: No Meds Allergies/Adverse Reactions: Allergies Allergy/AdvReac Type Severity Reaction Status Date / Time No Known Allergies Allergy Verified 06/23/18 00:19 - Medications Medications: Current Medications Furosemide (Lasix) 40 mg IVP DAILY PATIENCE Furosemide (Lasix) 20 mg IVP STAT STA Stop: 06/23/18 06:30 Piperacillin Sod/Tazobactam (Sod 3.375 gm/ Sodium Chloride) 100 mls @ 200 mls/hr IVPB Q6H PATIENCE; Protocol Last Admin: 06/23/18 05:55 Dose: 200 mls/hr Magnesium Sulfate/Dextrose (Magnesium Sulfate 1 Gm/100 Ml D5w) 1 gm in 100 mls @ 300 mls/hr IVPB Q30M ON LICENSE OF [facility] Stop: 06/23/18 07:19 Folic Acid 1 mg/ Sodium (Chloride) 100.2 mls @ 60 mls/hr IV DAILY ON LICENSE OF [facility] Thiamine HCl (Vitamin B1 Inj) 200 mg IV Q8H ON LICENSE OF [facility] Stop: 06/24/18 22:31 Physical Exam - Head Exam Head Exam: ATRAUMATIC, NORMAL INSPECTION, NORMOCEPHALIC - Eye Exam Eye Exam: EOMI - ENT Exam ENT Exam: Mucous Membranes Moist - Respiratory Exam Respiratory Exam: Accessory Muscle Use, Prolonged Expiratory Phase, Rales, Wheezes - Cardiovascular Exam Cardiovascular Exam: REGULAR RHYTHM, +S1, +S2, Systolic Murmur - GI/Abdominal Exam GI & Abdominal Exam: Distended, Normal Bowel Sounds, Organomegaly, Soft. abs ent: Guarding, Hernia, Pulsatile Mass, Rebound, Tenderness - Extremities Exam Extremities exam: Positive for: pedal edema - Neurological Exam Neurological exam: Alert - Skin Skin Exam: Normal Color, Warm Results - Vital Signs Recent Vital Signs: Last Vital Signs Temp 97.9 F 06/23/18 02:39 Pulse 113 H 06/23/18 04:30 Resp 18 06/23/18 04:30 BP 134/81 06/23/18 04:30 Pulse Ox 99 06/23/18 06:34 - Labs Result Diagrams: 06/23/18 01:09 06/23/18 01:09 Labs: Laboratory Results - last 24 hr 06/23/18 06/23/18 06/23/18 01:09 01:09 01:22 WBC 9.6 D RBC 3.41 L Hgb 8.9 L D Hct 28.7 L MCV 84.0 D MCH 26.2 L MCHC 31.2 L RDW 17.6 H Plt Count 343 D MPV 8.2 Neut % (Auto) 66.0 Lymph % (Auto) 14.0 L Harney % (Auto) 19.0 H Eos % (Auto) 1.0 Baso % (Auto) 0.0 Neut # (Auto) 6.4 Lymph # (Auto) 1.4 Harney # (Auto) 1.8 H Eos # (Auto) 0.1 Baso # (Auto) 0.0 PT INR APTT Puncture Site Rr pCO2 43 pO2 73 L HCO3 26.0 ABG pH 7.40 ABG Total CO2 27.9 ABG O2 Saturation 97.5 ABG Base Excess 1.5 Yonatan Test Pos ABG Potassium 3.1 L A-a O2 Difference 23.0 Respiratory Index 0.3 Glucose 127 H Lactate 1.5 Liter Flow 0 FiO2 21.0 Sodium 136 135.0 Potassium 3.9 Chloride 99 102.0 Carbon Dioxide 23 Anion Gap 17 BUN 6 L Creatinine 0.5 L Est GFR ( Amer) > 60 Est GFR (Non-Af Amer) > 60 Random Glucose 136 H Calcium 8.2 L Magnesium 1.8 Total Bilirubin 0.6 AST 165 H ALT 122 H D Alkaline Phosphatase 317 H Troponin I NT-Pro-B Natriuret Pep Total Protein 7.0 Albumin 3.9 Globulin 3.2 Albumin/Globulin Ratio 1.2 Lipase Arterial Blood Potassium 3.1 L Urine Color Urine Clarity Urine pH Ur Specific [place] Urine Protein Urine Glucose (UA) Urine Ketones Urine Blood Urine Nitrate Urine Bilirubin Urine Urobilinogen Ur Leukocyte Esterase Urine WBC (Auto) Urine RBC (Auto) Alcohol, Quantitative 06/23/18 06/23/18 06/23/18 01:26 04:31 05:40 WBC RBC Hgb Hct MCV MCH MCHC RDW Plt Count MPV Neut % (Auto) Lymph % (Auto) Harney % (Auto) Eos % (Auto) Baso % (Auto) Neut # (Auto) Lymph # (Auto) Harney # (Auto) Eos # (Auto) Baso # (Auto) PT 11.6 INR 1.1 APTT 29.0 Puncture Site pCO2 pO2 HCO3 ABG pH ABG Total CO2 ABG O2 Saturation ABG Base Excess Yonatan Test ABG Potassium A-a O2 Difference Respiratory Index Glucose Lactate Liter Flow FiO2 Sodium Potassium Chloride Carbon Dioxide Anion Gap BUN Creatinine Est GFR ( Amer) Est GFR (Non-Af Amer) Random Glucose Calcium Magnesium Total Bilirubin AST ALT Alkaline Phosphatase Troponin I NT-Pro-B Natriuret Pep Total Protein Albumin Globulin Albumin/Globulin Ratio Lipase Arterial Blood Potassium Urine Color Yellow Urine Clarity Clear Urine pH 6.0 Ur Specific [place] 1.008 Urine Protein Negative Urine Glucose (UA) Normal Urine Ketones Negative Urine Blood Negative Urine Nitrate Negative Urine Bilirubin Negative Urine Urobilinogen 2.0 Ur Leukocyte Esterase Neg Urine WBC (Auto) 1 Urine RBC (Auto) < 1 Alcohol, Quantitative 139 H 05/03/19 05:40 WBC RBC Hgb Hct MCV MCH MCHC RDW Plt Count MPV Neut % (Auto) Lymph % (Auto) [place] % (Auto) Eos % (Auto) Baso % (Auto) Neut # (Auto) Lymph # (Auto) Harney # (Auto) Eos # (Auto) Baso # (Auto) PT INR APTT Puncture Site pCO2 pO2 HCO3 ABG pH ABG Total CO2 ABG O2 Saturation ABG Base Excess Yonatan Test ABG Potassium A-a O2 Difference Respiratory Index Glucose Lactate Liter Flow FiO2 Sodium Potassium Chloride Carbon Dioxide Anion Gap BUN Creatinine Est GFR ( Amer) Est GFR (Non-Af Amer) Random Glucose Calcium Magnesium Total Bilirubin AST ALT Alkaline Phosphatase Troponin I 0.0240 NT-Pro-B Natriuret Pep 802 Total Protein Albumin Globulin Albumin/Globulin Ratio Lipase 94 Arterial Blood Potassium Urine Color Urine Clarity Urine pH Ur Specific [place] Urine Protein Urine Glucose (UA) Urine Ketones Urine Blood Urine Nitrate Urine Bilirubin Urine Urobilinogen Ur Leukocyte Esterase Urine WBC (Auto) Urine RBC (Auto) Alcohol, Quantitative Assessment & Plan - Assessment and Plan (Free Text) Assessment: DYspnea: suspect 2nd heart failure+ smoking (+)carboxyhemoglobin: s/p 1 liter in ER, will start lasix (+)rales on exam), start bronchodialtors (+)wheezing, continue bi-pap repeat abg, keep spo2 >92 (currently fio2 30%) -heart failure: avoid fluid overloaded states, continue av miguelina shola + spirinolactone + lasix + hold statin (increase alt) -COPD: wheezing, s/p solumedrol + bronchodilators + mag sulfate -NPO -?aspiration: check procalcitonin, dosed zosyn, serial lactic, continue -PUD ppx protonix -dvt ppx: continue eliquis -FiO2 30% saturating 100%, pre-test probability of PE low continue eliquis -CT head pending, multiple diagnostic tests pending -Patient will benefit from close monitoring until heart and lung function optimized -Patient strongly advised to stop smoking and stop drinking alcohol cc time 40 minutes - Date & Time Date: 06/23/18 Time: 06:56
[2018-06-23] MEDS: Magnesium Sulfate 1 gm in D5W 1 GM/100 ML BAG IVPB SCH ×4 (07:12→10:34)
[2018-06-23] MEDS ORDERED: Metoprolol 1 mg/ml Inj IVP ONE (07:34)
[2018-06-23] MEDS ORDERED: Metoprolol 1 mg/ml Inj ONE (07:39)
[2018-06-23 07:40] LABS: BARBITURATES, UR NEGATIVE (NEGATIVE); BENZODIAZEPINES, UR NEGATIVE (NEGATIVE); OPIATES, UR NEGATIVE (NEGATIVE); PHENCYCLIDINE, UR NEGATIVE (NEGATIVE)
[2018-06-23 07:42] LABS: CK-MB 4.39 ng/mL (0.0-3.38); TROPONIN I 0.031 ng/mL (0.00-0.120)
[2018-06-23] MEDS ORDERED: Thiamine 100 mg/ml Inj ONE (08:48)
[2018-06-23 08:51] LABS: IRON < 10 ug/dL (49-181)
[2018-06-23] MEDS: Albuterol-Ipratrop 3 mg / 0.5 (3 ml) UD INH SCH ×4 (08:51→19:18)
[2018-06-23 09:02] LABS: % IRON SATURATION < 7.35 (20-55); TOTAL IRON BINDING CAPACITY 136 ug/dL (250-450)
[2018-06-23] MEDS ORDERED: Multivitamin (MVI) 10 ML, Thiamine 100 MG, Folic Acid 1 MG in Sodium Chloride 0.9% 1,00... IV ONE (09:30)
--- NOTE | 2018-06-23 11:38 | RAD ---
Date of service: 06/23/2018 PROCEDURE: CHEST RADIOGRAPH, 1 VIEW HISTORY: SOB COMPARISON: 04/24/2018. FINDINGS: LUNGS: The lungs are well inflated. There is severe pulmonary venous congestion with redistribution. PLEURA: No pneumothorax or pleural effusion. CARDIOVASCULAR: There is severe cardiomegaly. Status post CABG. Stable position of left-sided AICD. No aortic atherosclerotic calcifications present. OSSEOUS STRUCTURES: Within normal limits for the patient's age. VISUALIZED UPPER ABDOMEN: Normal. OTHER FINDINGS: None. IMPRESSION: No active pulmonary disease. Severe cardiomegaly and pulmonary venous congestion with redistribution.
[2018-06-23] MEDS: Pantoprazole 40 mg EC Tab PO SCH (15:47)
[2018-06-23] MEDS: guaiFENesin 100 mg/5 ml Syrup UD PO PRN ×2 (15:47→21:41)
--- NOTE | 2018-06-23 15:50 | CP.CCUPN ---
<Sharif Morataya - Last Filed: 06/23/18 17:28> CCU Subjective - Physician Review Subjective (Free Text): 06/23/18 17:28 PGY-1 Critical Care Progress Note for Dr. Salazar Patient seen and examined at bedside. No acute events overnight. 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 CCU Objective - Vital Signs / Intake & Output Vital Signs (Last 4 hours): Vital Signs Temp Pulse Resp BP Pulse Ox 06/23/18 14:00 97.7 F 158 H 22 112/74 100 Intake and Output (Last 8hrs): Intake & Output 06/23/18 06/23/18 06/23/18 06:59 14:59 22:59 Intake Total 510 Output Total 3280 Balance -2770 Weight 160 lb Intake: Intake, IV Amount 510 Left Antecubital 30 Left External Jugular 480 Oral 0 Output: Urine 3280 Urine, Voided 3280 Other: Voiding Method Urinal - Physical Exam Head: Positive for: Atraumatic, Normocephalic Pupils: Positive for: PERRL Extroacular Muscles: Positive for: EOMI Mouth: Positive for: Moist Mucous Membranes Respiratory/Chest: Positive for: Clear to Auscultation. Negative for: Accessory Muscle Use - Medications Active Medications: Active Medications Generic Name Dose Route Start Last Admin Trade Name Freq PRN Reason Stop Dose Admin Albuterol/Ipratropium 3 ml 06/23/18 08:00 06/23/18 13:58 Duoneb 3 Mg/0.5 Mg (3 Ml) Ud INH 3 ml RQ6 PATIENCE Administration Enoxaparin Sodium 30 mg 06/24/18 10:00 Lovenox SC DAILY PATIENCE Furosemide 40 mg 06/23/18 10:00 06/23/18 10:32 Lasix IVP 40 mg DAILY PATIENCE Administration Guaifenesin 100 mg 06/23/18 12:07 Robitussin PO Q4H PRN Cough Piperacillin Sod/Tazobactam 100 mls @ 200 mls/hr 06/23/18 05:30 06/23/18 12:00 Sod 3.375 gm/ Sodium Chloride IVPB 200 mls/hr Q6H PATIENCE Administration Protocol Folic Acid 1 mg/ Sodium 100.2 mls @ 60 mls/hr 06/24/18 10:00 Chloride IV DAILY PATIENCE Diltiazem HCl 125 mg/ Dextrose 125 mls @ 5 mls/hr 06/23/18 09:00 06/23/18 09:04 IV 5 mg/hr .Q24H PATIENCE 5 mls/hr Administration Protocol 5 MG/HR Multivitamins/Vitamin C 10 ml/ 1,011.2 mls @ 75 mls/hr 06/23/18 09:30 06/23/18 09:06 Thiamine HCl 100 mg/ Folic IV 06/23/18 22:58 75 mls/hr Acid 1 mg/ Sodium Chloride .[id number] ONE Administration Insulin Human Isoph/Insulin Regular 0 units 06/23/18 16:30 Novolin 70/30 (70/30 Units/Ml) 10 Ml SC ACHS [facility] Protocol Lorazepam 1 mg 06/23/18 08:34 Ativan IVP Q6H PRN Anxiety Montelukast Sodium 10 mg 06/23/18 22:00 Singulair PO HS [facility] Ondansetron HCl 4 mg 06/23/18 11:44 Zofran Inj IVP Q6 PRN Nausea/Vomiting Pantoprazole Sodium 40 mg 06/23/18 13:15 Protonix Ec Tab PO DAILY [facility] Rifaximin 550 mg 06/23/18 18:00 Xifaxan PO BID [facility] Protocol Thiamine HCl 200 mg 06/24/18 08:45 Vitamin B1 Inj IV 06/26/18 00:46 Q8H [facility] - Patient Studies Lab Studies: Lab Studies 06/23/18 06/23/18 06/23/18 Range/Units 08:32 07:07 07:07 WBC (4.8-10.8) K/uL RBC (4.40-5.90) Mil/uL Hgb (12.0-18.0) g/dL Hct (35.0-51.0) % MCV (80.0-94.0) fL MCH (27.0-31.0) pg MCHC (33.0-37.0) g/dL RDW (11.5-14.5) % Plt Count (130-400) K/uL MPV (7.2-11.7) fL Neut % (Auto) (50.0-75.0) % Lymph % (Auto) (20.0-40.0) % Tillman % (Auto) (0.0-10.0) % Eos % (Auto) (0.0-4.0) % Baso % (Auto) (0.0-2.0) % Neut # (Auto) (1.8-7.0) K/uL Lymph # (Auto) (1.0-4.3) K/uL Tillman # (Auto) (0.0-0.8) K/uL Eos # (Auto) (0.0-0.7) K/uL Baso # (Auto) (0.0-0.2) K/uL PT (9.7-12.2) SECONDS INR APTT (21-34) SECONDS Puncture Site pCO2 (35-45) mm/Hg pO2 (80-100) mm/Hg HCO3 (21-28) mmol/L ABG pH (7.35-7.45) ABG Total CO2 (22-28) mmol/L ABG O2 Saturation (95-98) % ABG Base Excess (-2.0-3.0) mmol/L Yonatan Test ABG Potassium (3.6-5.2) mmol/L A-a O2 Difference mm/Hg Respiratory Index Glucose (75-110) mg/dl Lactate (0.7-2.1) mmol/L Liter Flow FiO2 % Sodium (132-148) mmol/L Potassium (3.6-5.2) mmol/L Chloride (98-107) mmol/L Carbon Dioxide (22-30) mmol/L Anion Gap (10-20) BUN (9-20) mg/dL Creatinine (0.8-1.5) mg/dL Est GFR ( Amer) Est GFR (Non-Af Amer) Random Glucose (75-110) mg/dL Lactic Acid (0.7-2.1) mmol/L Calcium (8.6-10.4) mg/dl Magnesium (1.6-2.3) mg/dL Iron < 10 L (49-181) ug/dL TIBC 136 L (250-450) ug/dL % Saturation < 7.35 L (20-55) Total Bilirubin (0.2-1.3) mg/dL AST (17-59) U/L ALT (21-72) U/L Alkaline Phosphatase (38-126) U/L Ammonia 117 H (9-33) umol/L CK-MB (Mass) 4.39 H (0.0-3.38) ng/mL Troponin I 0.0310 (0.00-0.120) ng/mL NT-Pro-B Natriuret Pep (0-900) pg/mL Total Protein (6.3-8.3) g/dL Albumin (3.5-5.0) g/dL Globulin (2.2-3.9) gm/dL Albumin/Globulin Ratio (1.0-2.1) Lipase (23-300) U/L Procalcitonin (0.19-0.49) NG/ML Arterial Blood Potassium (3.6-5.2) mmol/L Urine Color (YELLOW) Urine Clarity (Clear) Urine pH (5.0-8.0) Ur Specific Tina (1.003-1.030) Urine Protein (NEGATIVE) mg/dL Urine Glucose (UA) (Normal) mg/dL Urine Ketones (NEGATIVE) mg/dL Urine Blood (NEGATIVE) Urine Nitrate (NEGATIVE) Urine Bilirubin (NEGATIVE) Urine Urobilinogen (0.2-1.0) mg/dL Ur Leukocyte Esterase (Negative) Jesu/uL Urine WBC (Auto) (0-5) /hpf Urine RBC (Auto) (0-3) /hpf Digoxin (0.8-2.0) ng/mL Urine Opiates Screen (NEGATIVE) Urine Methadone Screen (NEGATIVE) Ur Barbiturates Screen (NEGATIVE) Ur Phencyclidine Scrn (NEGATIVE) Ur Amphetamines Screen (NEGATIVE) U Benzodiazepines Scrn (NEGATIVE) U Oth Cocaine Metabols (NEGATIVE) U Cannabinoids Screen (NEGATIVE) Alcohol, Quantitative (0-10) mg/dl 06/23/18 06/23/18 06/23/18 Range/Units 07:07 07:07 07:07 WBC (4.8-10.8) K/uL RBC (4.40-5.90) Mil/uL Hgb (12.0-18.0) g/dL Hct (35.0-51.0) % MCV (80.0-94.0) fL MCH (27.0-31.0) pg MCHC (33.0-37.0) g/dL RDW (11.5-14.5) % Plt Count (130-400) K/uL MPV (7.2-11.7) fL Neut % (Auto) (50.0-75.0) % Lymph % (Auto) (20.0-40.0) % Tillman % (Auto) (0.0-10.0) % Eos % (Auto) (0.0-4.0) % Baso % (Auto) (0.0-2.0) % Neut # (Auto) (1.8-7.0) K/uL Lymph # (Auto) (1.0-4.3) K/uL Tillman # (Auto) (0.0-0.8) K/uL Eos # (Auto) (0.0-0.7) K/uL Baso # (Auto) (0.0-0.2) K/uL PT (9.7-12.2) SECONDS INR APTT (21-34) SECONDS Puncture Site pCO2 (35-45) mm/Hg pO2 (80-100) mm/Hg HCO3 (21-28) mmol/L ABG pH (7.35-7.45) ABG Total CO2 (22-28) mmol/L ABG O2 Saturation (95-98) % ABG Base Excess (-2.0-3.0) mmol/L Yonatan Test ABG Potassium (3.6-5.2) mmol/L A-a O2 Difference mm/Hg Respiratory Index Glucose (75-110) mg/dl Lactate (0.7-2.1) mmol/L Liter Flow FiO2 % Sodium (132-148) mmol/L Potassium (3.6-5.2) mmol/L Chloride (98-107) mmol/L Carbon Dioxide (22-30) mmol/L Anion Gap (10-20) BUN (9-20) mg/dL Creatinine (0.8-1.5) mg/dL Est GFR ( Amer) Est GFR (Non-Af Amer) Random Glucose (75-110) mg/dL Lactic Acid 1.7 (0.7-2.1) mmol/L Calcium (8.6-10.4) mg/dl Magnesium (1.6-2.3) mg/dL Iron (49-181) ug/dL TIBC (250-450) ug/dL % Saturation (20-55) Total Bilirubin (0.2-1.3) mg/dL AST (17-59) U/L ALT (21-72) U/L Alkaline Phosphatase (38-126) U/L Ammonia (9-33) umol/L CK-MB (Mass) (0.0-3.38) ng/mL Troponin I (0.00-0.120) ng/mL NT-Pro-B Natriuret Pep (0-900) pg/mL Total Protein (6.3-8.3) g/dL Albumin (3.5-5.0) g/dL Globulin (2.2-3.9) gm/dL Albumin/Globulin Ratio (1.0-2.1) Lipase (23-300) U/L Procalcitonin (0.19-0.49) NG/ML Arterial Blood Potassium (3.6-5.2) mmol/L Urine Color (YELLOW) Urine Clarity (Clear) Urine pH (5.0-8.0) Ur Specific Tina (1.003-1.030) Urine Protein (NEGATIVE) mg/dL Urine Glucose (UA) (Normal) mg/dL Urine Ketones (NEGATIVE) mg/dL Urine Blood (NEGATIVE) Urine Nitrate (NEGATIVE) Urine Bilirubin (NEGATIVE) Urine Urobilinogen (0.2-1.0) mg/dL Ur Leukocyte Esterase (Negative) Jesu/uL Urine WBC (Auto) (0-5) /hpf Urine RBC (Auto) (0-3) /hpf Digoxin < 0.4 L (0.8-2.0) ng/mL Urine Opiates Screen Negative (NEGATIVE) Urine Methadone Screen Negative (NEGATIVE) Ur Barbiturates Screen Negative (NEGATIVE) Ur Phencyclidine Scrn Negative (NEGATIVE) Ur Amphetamines Screen Negative (NEGATIVE) U Benzodiazepines Scrn Negative (NEGATIVE) U Oth Cocaine Metabols Negative (NEGATIVE) U Cannabinoids Screen Positive H (NEGATIVE) Alcohol, Quantitative (0-10) mg/dl 06/23/18 06/23/18 06/23/18 Range/Units 07:07 05:40 05:40 WBC (4.8-10.8) K/uL RBC (4.40-5.90) Mil/uL Hgb (12.0-18.0) g/dL Hct (35.0-51.0) % MCV (80.0-94.0) fL MCH (27.0-31.0) pg MCHC (33.0-37.0) g/dL RDW (11.5-14.5) % Plt Count (130-400) K/uL MPV (7.2-11.7) fL Neut % (Auto) (50.0-75.0) % Lymph % (Auto) (20.0-40.0) % Tillman % (Auto) (0.0-10.0) % Eos % (Auto) (0.0-4.0) % Baso % (Auto) (0.0-2.0) % Neut # (Auto) (1.8-7.0) K/uL Lymph # (Auto) (1.0-4.3) K/uL Tillman # (Auto) (0.0-0.8) K/uL Eos # (Auto) (0.0-0.7) K/uL Baso # (Auto) (0.0-0.2) K/uL PT 11.6 (9.7-12.2) SECONDS INR 1.1 APTT 29.0 (21-34) SECONDS Puncture Site pCO2 (35-45) mm/Hg pO2 (80-100) mm/Hg HCO3 (21-28) mmol/L ABG pH (7.35-7.45) ABG Total CO2 (22-28) mmol/L ABG O2 Saturation (95-98) % ABG Base Excess (-2.0-3.0) mmol/L Yonatan Test ABG Potassium (3.6-5.2) mmol/L A-a O2 Difference mm/Hg Respiratory Index Glucose (75-110) mg/dl Lactate (0.7-2.1) mmol/L Liter Flow FiO2 % Sodium (132-148) mmol/L Potassium (3.6-5.2) mmol/L Chloride (98-107) mmol/L Carbon Dioxide (22-30) mmol/L Anion Gap (10-20) BUN (9-20) mg/dL Creatinine (0.8-1.5) mg/dL Est GFR ( Amer) Est GFR (Non-Af Amer) Random Glucose (75-110) mg/dL Lactic Acid (0.7-2.1) mmol/L Calcium (8.6-10.4) mg/dl Magnesium (1.6-2.3) mg/dL Iron (49-181) ug/dL TIBC (250-450) ug/dL % Saturation (20-55) Total Bilirubin (0.2-1.3) mg/dL AST (17-59) U/L ALT (21-72) U/L Alkaline Phosphatase (38-126) U/L Ammonia (9-33) umol/L CK-MB (Mass) (0.0-3.38) ng/mL Troponin I 0.0240 (0.00-0.120) ng/mL NT-Pro-B Natriuret Pep 802 (0-900) pg/mL Total Protein (6.3-8.3) g/dL Albumin (3.5-5.0) g/dL Globulin (2.2-3.9) gm/dL Albumin/Globulin Ratio (1.0-2.1) Lipase 94 (23-300) U/L Procalcitonin 0.07 L (0.19-0.49) NG/ML Arterial Blood Potassium (3.6-5.2) mmol/L Urine Color (YELLOW) Urine Clarity (Clear) Urine pH (5.0-8.0) Ur Specific Tina (1.003-1.030) Urine Protein (NEGATIVE) mg/dL Urine Glucose (UA) (Normal) mg/dL Urine Ketones (NEGATIVE) mg/dL Urine Blood (NEGATIVE) Urine Nitrate (NEGATIVE) Urine Bilirubin (NEGATIVE) Urine Urobilinogen (0.2-1.0) mg/dL Ur Leukocyte Esterase (Negative) Jesu/uL Urine WBC (Auto) (0-5) /hpf Urine RBC (Auto) (0-3) /hpf Digoxin (0.8-2.0) ng/mL Urine Opiates Screen (NEGATIVE) Urine Methadone Screen (NEGATIVE) Ur Barbiturates Screen (NEGATIVE) Ur Phencyclidine Scrn (NEGATIVE) Ur Amphetamines Screen (NEGATIVE) U Benzodiazepines Scrn (NEGATIVE) U Oth Cocaine Metabols (NEGATIVE) U Cannabinoids Screen (NEGATIVE) Alcohol, Quantitative (0-10) mg/dl 06/23/18 06/23/18 06/23/18 Range/Units 04:31 01:26 01:22 WBC (4.8-10.8) K/uL RBC (4.40-5.90) Mil/uL Hgb (12.0-18.0) g/dL Hct (35.0-51.0) % MCV (80.0-94.0) fL MCH (27.0-31.0) pg MCHC (33.0-37.0) g/dL RDW (11.5-14.5) % Plt Count (130-400) K/uL MPV (7.2-11.7) fL Neut % (Auto) (50.0-75.0) % Lymph % (Auto) (20.0-40.0) % Tillman % (Auto) (0.0-10.0) % Eos % (Auto) (0.0-4.0) % Baso % (Auto) (0.0-2.0) % Neut # (Auto) (1.8-7.0) K/uL Lymph # (Auto) (1.0-4.3) K/uL Tillman # (Auto) (0.0-0.8) K/uL Eos # (Auto) (0.0-0.7) K/uL Baso # (Auto) (0.0-0.2) K/uL PT (9.7-12.2) SECONDS INR APTT (21-34) SECONDS Puncture Site Rr pCO2 43 (35-45) mm/Hg pO2 73 L (80-100) mm/Hg HCO3 26.0 (21-28) mmol/L ABG pH 7.40 (7.35-7.45) ABG Total CO2 27.9 (22-28) mmol/L ABG O2 Saturation 97.5 (95-98) % ABG Base Excess 1.5 (-2.0-3.0) mmol/L Yonatan Test Pos ABG Potassium 3.1 L (3.6-5.2) mmol/L A-a O2 Difference 23.0 mm/Hg Respiratory Index 0.3 Glucose 127 H (75-110) mg/dl Lactate 1.5 (0.7-2.1) mmol/L Liter Flow 0 FiO2 21.0 % Sodium 135.0 (132-148) mmol/L Potassium (3.6-5.2) mmol/L Chloride 102.0 (98-107) mmol/L Carbon Dioxide (22-30) mmol/L Anion Gap (10-20) BUN (9-20) mg/dL Creatinine (0.8-1.5) mg/dL Est GFR ( Amer) Est GFR (Non-Af Amer) Random Glucose (75-110) mg/dL Lactic Acid (0.7-2.1) mmol/L Calcium (8.6-10.4) mg/dl Magnesium (1.6-2.3) mg/dL Iron (49-181) ug/dL TIBC (250-450) ug/dL % Saturation (20-55) Total Bilirubin (0.2-1.3) mg/dL AST (17-59) U/L ALT (21-72) U/L Alkaline Phosphatase (38-126) U/L Ammonia (9-33) umol/L CK-MB (Mass) (0.0-3.38) ng/mL Troponin I (0.00-0.120) ng/mL NT-Pro-B Natriuret Pep (0-900) pg/mL Total Protein (6.3-8.3) g/dL Albumin (3.5-5.0) g/dL Globulin (2.2-3.9) gm/dL Albumin/Globulin Ratio (1.0-2.1) Lipase (23-300) U/L Procalcitonin (0.19-0.49) NG/ML Arterial Blood Potassium 3.1 L (3.6-5.2) mmol/L Urine Color Yellow (YELLOW) Urine Clarity Clear (Clear) Urine pH 6.0 (5.0-8.0) Ur Specific Tina 1.008 (1.003-1.030) Urine Protein Negative (NEGATIVE) mg/dL Urine Glucose (UA) Normal (Normal) mg/dL Urine Ketones Negative (NEGATIVE) mg/dL Urine Blood Negative (NEGATIVE) Urine Nitrate Negative (NEGATIVE) Urine Bilirubin Negative (NEGATIVE) Urine Urobilinogen 2.0 (0.2-1.0) mg/dL Ur Leukocyte Esterase Neg (Negative) Jesu/uL Urine WBC (Auto) 1 (0-5) /hpf Urine RBC (Auto) < 1 (0-3) /hpf Digoxin (0.8-2.0) ng/mL Urine Opiates Screen (NEGATIVE) Urine Methadone Screen (NEGATIVE) Ur Barbiturates Screen (NEGATIVE) Ur Phencyclidine Scrn (NEGATIVE) Ur Amphetamines Screen (NEGATIVE) U Benzodiazepines Scrn (NEGATIVE) U Oth Cocaine Metabols (NEGATIVE) U Cannabinoids Screen (NEGATIVE) Alcohol, Quantitative 139 H (0-10) mg/dl 06/23/18 06/23/18 Range/Units 01:09 01:09 WBC 9.6 D (4.8-10.8) K/uL RBC 3.41 L (4.40-5.90) Mil/uL Hgb 8.9 L D (12.0-18.0) g/dL Hct 28.7 L (35.0-51.0) % MCV 84.0 D (80.0-94.0) fL MCH 26.2 L (27.0-31.0) pg MCHC 31.2 L (33.0-37.0) g/dL RDW 17.6 H (11.5-14.5) % Plt Count 343 D (130-400) K/uL MPV 8.2 (7.2-11.7) fL Neut % (Auto) 66.0 (50.0-75.0) % Lymph % (Auto) 14.0 L (20.0-40.0) % Tillman % (Auto) 19.0 H (0.0-10.0) % Eos % (Auto) 1.0 (0.0-4.0) % Baso % (Auto) 0.0 (0.0-2.0) % Neut # (Auto) 6.4 (1.8-7.0) K/uL Lymph # (Auto) 1.4 (1.0-4.3) K/uL Tillman # (Auto) 1.8 H (0.0-0.8) K/uL Eos # (Auto) 0.1 (0.0-0.7) K/uL Baso # (Auto) 0.0 (0.0-0.2) K/uL PT (9.7-12.2) SECONDS INR APTT (21-34) SECONDS Puncture Site pCO2 (35-45) mm/Hg pO2 (80-100) mm/Hg HCO3 (21-28) mmol/L ABG pH (7.35-7.45) ABG Total CO2 (22-28) mmol/L ABG O2 Saturation (95-98) % ABG Base Excess (-2.0-3.0) mmol/L Yonatan Test ABG Potassium (3.6-5.2) mmol/L A-a O2 Difference mm/Hg Respiratory Index Glucose (75-110) mg/dl Lactate (0.7-2.1) mmol/L Liter Flow FiO2 % Sodium 136 (132-148) mmol/L Potassium 3.9 (3.6-5.2) mmol/L Chloride 99 (98-107) mmol/L Carbon Dioxide 23 (22-30) mmol/L Anion Gap 17 (10-20) BUN 6 L (9-20) mg/dL Creatinine 0.5 L (0.8-1.5) mg/dL Est GFR ( Amer) > 60 Est GFR (Non-Af Amer) > 60 Random Glucose 136 H (75-110) mg/dL Lactic Acid (0.7-2.1) mmol/L Calcium 8.2 L (8.6-10.4) mg/dl Magnesium 1.8 (1.6-2.3) mg/dL Iron (49-181) ug/dL TIBC (250-450) ug/dL % Saturation (20-55) Total Bilirubin 0.6 (0.2-1.3) mg/dL AST 165 H (17-59) U/L ALT 122 H D (21-72) U/L Alkaline Phosphatase 317 H (38-126) U/L Ammonia (9-33) umol/L CK-MB (Mass) (0.0-3.38) ng/mL Troponin I (0.00-0.120) ng/mL NT-Pro-B Natriuret Pep (0-900) pg/mL Total Protein 7.0 (6.3-8.3) g/dL Albumin 3.9 (3.5-5.0) g/dL Globulin 3.2 (2.2-3.9) gm/dL Albumin/Globulin Ratio 1.2 (1.0-2.1) Lipase (23-300) U/L Procalcitonin (0.19-0.49) NG/ML Arterial Blood Potassium (3.6-5.2) mmol/L Urine Color (YELLOW) Urine Clarity (Clear) Urine pH (5.0-8.0) Ur Specific Tina (1.003-1.030) Urine Protein (NEGATIVE) mg/dL Urine Glucose (UA) (Normal) mg/dL Urine Ketones (NEGATIVE) mg/dL Urine Blood (NEGATIVE) Urine Nitrate (NEGATIVE) Urine Bilirubin (NEGATIVE) Urine Urobilinogen (0.2-1.0) mg/dL Ur Leukocyte Esterase (Negative) Jesu/uL Urine WBC (Auto) (0-5) /hpf Urine RBC (Auto) (0-3) /hpf Digoxin (0.8-2.0) ng/mL Urine Opiates Screen (NEGATIVE) Urine Methadone Screen (NEGATIVE) Ur Barbiturates Screen (NEGATIVE) Ur Phencyclidine Scrn (NEGATIVE) Ur Amphetamines Screen (NEGATIVE) U Benzodiazepines Scrn (NEGATIVE) U Oth Cocaine Metabols (NEGATIVE) U Cannabinoids Screen (NEGATIVE) Alcohol, Quantitative (0-10) mg/dl Laboratory Results - last 24 hr 06/23/18 06/23/18 06/23/18 01:09 01:09 01:22 WBC 9.6 D RBC 3.41 L Hgb 8.9 L D Hct 28.7 L MCV 84.0 D MCH 26.2 L MCHC 31.2 L RDW 17.6 H Plt Count 343 D MPV 8.2 Neut % (Auto) 66.0 Lymph % (Auto) 14.0 L Tillman % (Auto) 19.0 H Eos % (Auto) 1.0 Baso % (Auto) 0.0 Neut # (Auto) 6.4 Lymph # (Auto) 1.4 Tillman # (Auto) 1.8 H Eos # (Auto) 0.1 Baso # (Auto) 0.0 PT INR APTT Puncture Site Rr pCO2 43 pO2 73 L HCO3 26.0 ABG pH 7.40 ABG Total CO2 27.9 ABG O2 Saturation 97.5 ABG Base Excess 1.5 Yonatan Test Pos ABG Potassium 3.1 L A-a O2 Difference 23.0 Respiratory Index 0.3 Glucose 127 H Lactate 1.5 Liter Flow 0 FiO2 21.0 Sodium 136 135.0 Potassium 3.9 Chloride 99 102.0 Carbon Dioxide 23 Anion Gap 17 BUN 6 L Creatinine 0.5 L Est GFR ( Amer) > 60 Est GFR (Non-Af Amer) > 60 Random Glucose 136 H Lactic Acid Calcium 8.2 L Magnesium 1.8 Iron TIBC % Saturation Total Bilirubin 0.6 AST 165 H ALT 122 H D Alkaline Phosphatase 317 H Ammonia CK-MB (Mass) Troponin I NT-Pro-B Natriuret Pep Total Protein 7.0 Albumin 3.9 Globulin 3.2 Albumin/Globulin Ratio 1.2 Lipase Procalcitonin Arterial Blood Potassium 3.1 L Urine Color Urine Clarity Urine pH Ur Specific Tina Urine Protein Urine Glucose (UA) Urine Ketones Urine Blood Urine Nitrate Urine Bilirubin Urine Urobilinogen Ur Leukocyte Esterase Urine WBC (Auto) Urine RBC (Auto) Digoxin Urine Opiates Screen Urine Methadone Screen Ur Barbiturates Screen Ur Phencyclidine Scrn Ur Amphetamines Screen U Benzodiazepines Scrn U Oth Cocaine Metabols U Cannabinoids Screen Alcohol, Quantitative 06/23/18 06/23/18 06/23/18 01:26 04:31 05:40 WBC RBC Hgb Hct MCV MCH MCHC RDW Plt Count MPV Neut % (Auto) Lymph % (Auto) Tillman % (Auto) Eos % (Auto) Baso % (Auto) Neut # (Auto) Lymph # (Auto) Tillman # (Auto) Eos # (Auto) Baso # (Auto) PT 11.6 INR 1.1 APTT 29.0 Puncture Site pCO2 pO2 HCO3 ABG pH ABG Total CO2 ABG O2 Saturation ABG Base Excess Yonatan Test ABG Potassium A-a O2 Difference Respiratory Index Glucose Lactate Liter Flow FiO2 Sodium Potassium Chloride Carbon Dioxide Anion Gap BUN Creatinine Est GFR ( Amer) Est GFR (Non-Af Amer) Random Glucose Lactic Acid Calcium Magnesium Iron TIBC % Saturation Total Bilirubin AST ALT Alkaline Phosphatase Ammonia CK-MB (Mass) Troponin I NT-Pro-B Natriuret Pep Total Protein Albumin Globulin Albumin/Globulin Ratio Lipase Procalcitonin Arterial Blood Potassium Urine Color Yellow Urine Clarity Clear Urine pH 6.0 Ur Specific Tina 1.008 Urine Protein Negative Urine Glucose (UA) Normal Urine Ketones Negative Urine Blood Negative Urine Nitrate Negative Urine Bilirubin Negative Urine Urobilinogen 2.0 Ur Leukocyte Esterase Neg Urine WBC (Auto) 1 Urine RBC (Auto) < 1 Digoxin Urine Opiates Screen Urine Methadone Screen Ur Barbiturates Screen Ur Phencyclidine Scrn Ur Amphetamines Screen U Benzodiazepines Scrn U Oth Cocaine Metabols U Cannabinoids Screen Alcohol, Quantitative 139 H 06/23/18 06/23/1819 05:40 07:07 07:07 WBC RBC Hgb Hct MCV MCH MCHC RDW Plt Count MPV Neut % (Auto) Lymph % (Auto) Tillman % (Auto) Eos % (Auto) Baso % (Auto) Neut # (Auto) Lymph # (Auto) Tillman # (Auto) Eos # (Auto) Baso # (Auto) PT INR APTT Puncture Site pCO2 pO2 HCO3 ABG pH ABG Total CO2 ABG O2 Saturation ABG Base Excess Yonatan Test ABG Potassium A-a O2 Difference Respiratory Index Glucose Lactate Liter Flow FiO2 Sodium Potassium Chloride Carbon Dioxide Anion Gap BUN Creatinine Est GFR ( Amer) Est GFR (Non-Af Amer) Random Glucose Lactic Acid 1.7 Calcium Magnesium Iron TIBC % Saturation Total Bilirubin AST ALT Alkaline Phosphatase Ammonia CK-MB (Mass) Troponin I 0.0240 NT-Pro-B Natriuret Pep 802 Total Protein Albumin Globulin Albumin/Globulin Ratio Lipase 94 Procalcitonin 0.07 L Arterial Blood Potassium Urine Color Urine Clarity Urine pH Ur Specific Tina Urine Protein Urine Glucose (UA) Urine Ketones Urine Blood Urine Nitrate Urine Bilirubin Urine Urobilinogen Ur Leukocyte Esterase Urine WBC (Auto) Urine RBC (Auto) Digoxin Urine Opiates Screen Urine Methadone Screen Ur Barbiturates Screen Ur Phencyclidine Scrn Ur Amphetamines Screen U Benzodiazepines Scrn U Oth Cocaine Metabols U Cannabinoids Screen Alcohol, Quantitative 06/23/18 06/23/18 06/23/18 07:07 07:07 07:07 WBC RBC Hgb Hct MCV MCH MCHC RDW Plt Count MPV Neut % (Auto) Lymph % (Auto) Tillman % (Auto) Eos % (Auto) Baso % (Auto) Neut # (Auto) Lymph # (Auto) Tillman # (Auto) Eos # (Auto) Baso # (Auto) PT INR APTT Puncture Site pCO2 pO2 HCO3 ABG pH ABG Total CO2 ABG O2 Saturation ABG Base Excess Yonatan Test ABG Potassium A-a O2 Difference Respiratory Index Glucose Lactate Liter Flow FiO2 Sodium Potassium Chloride Carbon Dioxide Anion Gap BUN Creatinine Est GFR ( Amer) Est GFR (Non-Af Amer) Random Glucose Lactic Acid Calcium Magnesium Iron TIBC % Saturation Total Bilirubin AST ALT Alkaline Phosphatase Ammonia CK-MB (Mass) 4.39 H Troponin I 0.0310 NT-Pro-B Natriuret Pep Total Protein Albumin Globulin Albumin/Globulin Ratio Lipase Procalcitonin Arterial Blood Potassium Urine Color Urine Clarity Urine pH Ur Specific Tina Urine Protein Urine Glucose (UA) Urine Ketones Urine Blood Urine Nitrate Urine Bilirubin Urine Urobilinogen Ur Leukocyte Esterase Urine WBC (Auto) Urine RBC (Auto) Digoxin < 0.4 L Urine Opiates Screen Negative Urine Methadone Screen Negative Ur Barbiturates Screen Negative Ur Phencyclidine Scrn Negative Ur Amphetamines Screen Negative U Benzodiazepines Scrn Negative U Oth Cocaine Metabols Negative U Cannabinoids Screen Positive H Alcohol, Quantitative 06/23/18 06/23/18 07:07 08:32 WBC RBC Hgb Hct MCV MCH MCHC RDW Plt Count MPV Neut % (Auto) Lymph % (Auto) Tillman % (Auto) Eos % (Auto) Baso % (Auto) Neut # (Auto) Lymph # (Auto) Tillman # (Auto) Eos # (Auto) Baso # (Auto) PT INR APTT Puncture Site pCO2 pO2 HCO3 ABG pH ABG Total CO2 ABG O2 Saturation ABG Base Excess Yonatan Test ABG Potassium A-a O2 Difference Respiratory Index Glucose Lactate Liter Flow FiO2 Sodium Potassium Chloride Carbon Dioxide Anion Gap BUN Creatinine Est GFR ( Amer) Est GFR (Non-Af Amer) Random Glucose Lactic Acid Calcium Magnesium Iron < 10 L TIBC 136 L % Saturation < 7.35 L Total Bilirubin AST ALT Alkaline Phosphatase Ammonia 117 H CK-MB (Mass) Troponin I NT-Pro-B Natriuret Pep Total Protein Albumin Globulin Albumin/Globulin Ratio Lipase Procalcitonin Arterial Blood Potassium Urine Color Urine Clarity Urine pH Ur Specific Tina Urine Protein Urine Glucose (UA) Urine Ketones Urine Blood Urine Nitrate Urine Bilirubin Urine Urobilinogen Ur Leukocyte Esterase Urine WBC (Auto) Urine RBC (Auto) Digoxin Urine Opiates Screen Urine Methadone Screen Ur Barbiturates Screen Ur Phencyclidine Scrn Ur Amphetamines Screen U Benzodiazepines Scrn U Oth Cocaine Metabols U Cannabinoids Screen Alcohol, Quantitative Radiology Impressions: Radiology Impressions Chest X-Ray 06/23/18 00:36 IMPRESSION: No active pulmonary disease. Severe cardiomegaly and pulmonary venous congestion with redistribution. EKG/Cardiology Studies: Cardiology / EKG Studies 06/23/18 00:36 ELECTROCARDIOGRAM Stat Comment: Mode Of Transportation: BED Reason For Exam: SOB 06/23/18 07:32 EKG [ELECTROCARDIOGRAM] Stat Comment: Mode Of Transportation: Reason For Exam: CHANGE IN PT CONDITION. CARDIAC RHYTHM CHANGE 06/23/18 11:11 EKG [ELECTROCARDIOGRAM] Stat Comment: Mode Of Transportation: BED Reason For Exam: cardizem drip for afib Review of Systems - Review of Systems Systems not reviewed;Unavailable: Altered Mental Status Assessment/Plan - Assessment and Plan (Free Text) Assessment: 57 yo male with PMHx COPD, polysubstance abuse presents in acute respiratory failure and AMS. Pulm COPD Exacerbation -Dr. Carlos Wise -Solumedrol 125 IV given ED --> Solumedrol d/c'd -Poss asp PNA 2/2 ETOH -ABx: Zosyn -Tolerating 2L Cardio -Cardiac monitoring Neuro AMS -Likely 2/2 hepatic encephalopathy/etoh withdrawal -CT head w/o contrast - f/u ETOH Detox -Ativan 1mg IV Q4 -CIWA -Neurochecks GI Hepatic Encephalopathy -Ammonia 130s -Rifaxamin Nephro -Lasix 40 mg IV daily -Strict Is and Os PPx -Lovenox following CT head results -Protonix 40 PO daily -Ativan/CIWA protocol Assessment and plan d/w Dr. Martin Morataya, PGY-1 <Guillermo Salazar - Last Filed: 06/23/18 19:12> CCU Objective - Vital Signs / Intake & Output Intake and Output (Last 8hrs): Intake & Output 06/23/18 06/23/18 06/23/18 06:59 14:59 22:59 Intake Total 610 2090 Output Total 2780 2150 Balance -2170 -60 Weight 160 lb Intake: Intake, IV Amount 610 450 Left Antecubital 30 15 Left External Jugular 580 435 Oral 0 1640 Output: Urine 2780 2150 Urine, Voided 2780 2150 Other: Voiding Method Urinal - Medications Active Medications: Active Medications Generic Name Dose Route Start Last Admin Trade Name Freq PRN Reason Stop Dose Admin Albuterol/Ipratropium 3 ml 06/23/18 08:00 06/23/18 13:58 Duoneb 3 Mg/0.5 Mg (3 Ml) Ud INH 3 ml RQ6 PATIENCE Administration Enoxaparin Sodium 30 mg 06/24/18 10:00 Lovenox SC DAILY PATIENCE Furosemide 40 mg 06/23/18 10:00 06/23/18 10:32 Lasix IVP 40 mg DAILY PATIENCE Administration Guaifenesin 100 mg 06/23/18 12:07 06/23/18 15:47 Robitussin PO 100 mg Q4H PRN Administration Cough Piperacillin Sod/Tazobactam 100 mls @ 200 mls/hr 06/23/18 05:30 06/23/18 17:35 Sod 3.375 gm/ Sodium Chloride IVPB 200 mls/hr Q6H PATIENCE Administration Protocol Folic Acid 1 mg/ Sodium 100.2 mls @ 60 mls/hr 06/24/18 10:00 Chloride IV DAILY PATIENCE Diltiazem HCl 125 mg/ Dextrose 125 mls @ 5 mls/hr 06/23/18 09:00 06/23/18 09:04 IV 5 mg/hr .Q24H PATIENCE 5 mls/hr Administration Protocol 5 MG/HR Multivitamins/Vitamin C 10 ml/ 1,011.2 mls @ 75 mls/hr 06/23/18 09:30 06/23/18 09:06 Thiamine HCl 100 mg/ Folic IV 06/23/18 22:58 75 mls/hr Acid 1 mg/ Sodium Chloride .[id number] ONE Administration Insulin Human Isoph/Insulin Regular 0 units 06/23/18 16:30 06/23/18 17:27 Novolin 70/30 (70/30 Units/Ml) 10 Ml SC 2 u ACHS PATIENCE Administration Protocol Lorazepam 1 mg 06/23/18 08:34 06/23/18 15:12 Ativan IVP 1 mg Q6H PRN Administration Anxiety Montelukast Sodium 10 mg 06/23/18 22:00 Singulair PO HS PATIENCE Ondansetron HCl 4 mg 06/23/18 11:44 Zofran Inj IVP Q6 PRN Nausea/Vomiting Pantoprazole Sodium 40 mg 06/23/18 13:15 06/23/18 15:47 Protonix Ec Tab PO 40 mg DAILY PATIENCE Administration Rifaximin 550 mg 06/23/18 18:00 06/23/18 17:34 Xifaxan PO 550 mg BID PATIENCE Administration Protocol Thiamine HCl 200 mg 06/24/18 08:45 Vitamin B1 Inj IV 06/26/18 00:46 Q8H PATIENCE - Patient Studies Lab Studies: Lab Studies 06/23/18 06/23/18 06/23/18 Range/Units 17:00 17:00 08:32 WBC (4.8-10.8) K/uL RBC (4.40-5.90) Mil/uL Hgb (12.0-18.0) g/dL Hct (35.0-51.0) % MCV (80.0-94.0) fL MCH (27.0-31.0) pg MCHC (33.0-37.0) g/dL RDW (11.5-14.5) % Plt Count (130-400) K/uL MPV (7.2-11.7) fL Neut % (Auto) (50.0-75.0) % Lymph % (Auto) (20.0-40.0) % Tillman % (Auto) (0.0-10.0) % Eos % (Auto) (0.0-4.0) % Baso % (Auto) (0.0-2.0) % Neut # (Auto) (1.8-7.0) K/uL Lymph # (Auto) (1.0-4.3) K/uL Tillman # (Auto) (0.0-0.8) K/uL Eos # (Auto) (0.0-0.7) K/uL Baso # (Auto) (0.0-0.2) K/uL PT (9.7-12.2) SECONDS INR APTT (21-34) SECONDS Puncture Site pCO2 (35-45) mm/Hg pO2 (80-100) mm/Hg HCO3 (21-28) mmol/L ABG pH (7.35-7.45) ABG Total CO2 (22-28) mmol/L ABG O2 Saturation (95-98) % ABG Base Excess (-2.0-3.0) mmol/L Yonatan Test ABG Potassium (3.6-5.2) mmol/L A-a O2 Difference mm/Hg Respiratory Index Glucose (75-110) mg/dl Lactate (0.7-2.1) mmol/L Liter Flow FiO2 % Sodium (132-148) mmol/L Potassium (3.6-5.2) mmol/L Chloride (98-107) mmol/L Carbon Dioxide (22-30) mmol/L Anion Gap (10-20) BUN (9-20) mg/dL Creatinine (0.8-1.5) mg/dL Est GFR ( Amer) Est GFR (Non-Af Amer) Random Glucose (75-110) mg/dL Lactic Acid (0.7-2.1) mmol/L Calcium (8.6-10.4) mg/dl Magnesium (1.6-2.3) mg/dL Iron 18 L < 10 L (49-181) ug/dL TIBC 454 H 136 L (250-450) ug/dL % Saturation 4 L < 7.35 L (20-55) Total Bilirubin (0.2-1.3) mg/dL AST (17-59) U/L ALT (21-72) U/L Alkaline Phosphatase (38-126) U/L Ammonia (9-33) umol/L CK-MB (Mass) (0.0-3.38) ng/mL Troponin I 0.0400 (0.00-0.120) ng/mL NT-Pro-B Natriuret Pep (0-900) pg/mL Total Protein (6.3-8.3) g/dL Albumin (3.5-5.0) g/dL Globulin (2.2-3.9) gm/dL Albumin/Globulin Ratio (1.0-2.1) Lipase (23-300) U/L Procalcitonin (0.19-0.49) NG/ML Arterial Blood Potassium (3.6-5.2) mmol/L Urine Color (YELLOW) Urine Clarity (Clear) Urine pH (5.0-8.0) Ur Specific Tina (1.003-1.030) Urine Protein (NEGATIVE) mg/dL Urine Glucose (UA) (Normal) mg/dL Urine Ketones (NEGATIVE) mg/dL Urine Blood (NEGATIVE) Urine Nitrate (NEGATIVE) Urine Bilirubin (NEGATIVE) Urine Urobilinogen (0.2-1.0) mg/dL Ur Leukocyte Esterase (Negative) Jesu/uL Urine WBC (Auto) (0-5) /hpf Urine RBC (Auto) (0-3) /hpf Digoxin (0.8-2.0) ng/mL Urine Opiates Screen (NEGATIVE) Urine Methadone Screen (NEGATIVE) Ur Barbiturates Screen (NEGATIVE) Ur Phencyclidine Scrn (NEGATIVE) Ur Amphetamines Screen (NEGATIVE) U Benzodiazepines Scrn (NEGATIVE) U Oth Cocaine Metabols (NEGATIVE) U Cannabinoids Screen (NEGATIVE) Alcohol, Quantitative (0-10) mg/dl 06/23/18 06/23/18 06/23/18 Range/Units 07:07 07:07 07:07 WBC (4.8-10.8) K/uL RBC (4.40-5.90) Mil/uL Hgb (12.0-18.0) g/dL Hct (35.0-51.0) % MCV (80.0-94.0) fL MCH (27.0-31.0) pg MCHC (33.0-37.0) g/dL RDW (11.5-14.5) % Plt Count (130-400) K/uL MPV (7.2-11.7) fL Neut % (Auto) (50.0-75.0) % Lymph % (Auto) (20.0-40.0) % Tillman % (Auto) (0.0-10.0) % Eos % (Auto) (0.0-4.0) % Baso % (Auto) (0.0-2.0) % Neut # (Auto) (1.8-7.0) K/uL Lymph # (Auto) (1.0-4.3) K/uL Tillman # (Auto) (0.0-0.8) K/uL Eos # (Auto) (0.0-0.7) K/uL Baso # (Auto) (0.0-0.2) K/uL PT (9.7-12.2) SECONDS INR APTT (21-34) SECONDS Puncture Site pCO2 (35-45) mm/Hg pO2 (80-100) mm/Hg HCO3 (21-28) mmol/L ABG pH (7.35-7.45) ABG Total CO2 (22-28) mmol/L ABG O2 Saturation (95-98) % ABG Base Excess (-2.0-3.0) mmol/L Yonatan Test ABG Potassium (3.6-5.2) mmol/L A-a O2 Difference mm/Hg Respiratory Index Glucose (75-110) mg/dl Lactate (0.7-2.1) mmol/L Liter Flow FiO2 % Sodium (132-148) mmol/L Potassium (3.6-5.2) mmol/L Chloride (98-107) mmol/L Carbon Dioxide (22-30) mmol/L Anion Gap (10-20) BUN (9-20) mg/dL Creatinine (0.8-1.5) mg/dL Est GFR ( Amer) Est GFR (Non-Af Amer) Random Glucose (75-110) mg/dL Lactic Acid (0.7-2.1) mmol/L Calcium (8.6-10.4) mg/dl Magnesium (1.6-2.3) mg/dL Iron (49-181) ug/dL TIBC (250-450) ug/dL % Saturation (20-55) Total Bilirubin (0.2-1.3) mg/dL AST (17-59) U/L ALT (21-72) U/L Alkaline Phosphatase (38-126) U/L Ammonia 117 H (9-33) umol/L CK-MB (Mass) 4.39 H (0.0-3.38) ng/mL Troponin I 0.0310 (0.00-0.120) ng/mL NT-Pro-B Natriuret Pep (0-900) pg/mL Total Protein (6.3-8.3) g/dL Albumin (3.5-5.0) g/dL Globulin (2.2-3.9) gm/dL Albumin/Globulin Ratio (1.0-2.1) Lipase (23-300) U/L Procalcitonin (0.19-0.49) NG/ML Arterial Blood Potassium (3.6-5.2) mmol/L Urine Color (YELLOW) Urine Clarity (Clear) Urine pH (5.0-8.0) Ur Specific Tina (1.003-1.030) Urine Protein (NEGATIVE) mg/dL Urine Glucose (UA) (Normal) mg/dL Urine Ketones (NEGATIVE) mg/dL Urine Blood (NEGATIVE) Urine Nitrate (NEGATIVE) Urine Bilirubin (NEGATIVE) Urine Urobilinogen (0.2-1.0) mg/dL Ur Leukocyte Esterase (Negative) Jesu/uL Urine WBC (Auto) (0-5) /hpf Urine RBC (Auto) (0-3) /hpf Digoxin (0.8-2.0) ng/mL Urine Opiates Screen Negative (NEGATIVE) Urine Methadone Screen Negative (NEGATIVE) Ur Barbiturates Screen Negative (NEGATIVE) Ur Phencyclidine Scrn Negative (NEGATIVE) Ur Amphetamines Screen Negative (NEGATIVE) U Benzodiazepines Scrn Negative (NEGATIVE) U Oth Cocaine Metabols Negative (NEGATIVE) U Cannabinoids Screen Positive H (NEGATIVE) Alcohol, Quantitative (0-10) mg/dl 06/23/18 06/23/18 06/23/18 Range/Units 07:07 07:07 07:07 WBC (4.8-10.8) K/uL RBC (4.40-5.90) Mil/uL Hgb (12.0-18.0) g/dL Hct (35.0-51.0) % MCV (80.0-94.0) fL MCH (27.0-31.0) pg MCHC (33.0-37.0) g/dL RDW (11.5-14.5) % Plt Count (130-400) K/uL MPV (7.2-11.7) fL Neut % (Auto) (50.0-75.0) % Lymph % (Auto) (20.0-40.0) % Tillman % (Auto) (0.0-10.0) % Eos % (Auto) (0.0-4.0) % Baso % (Auto) (0.0-2.0) % Neut # (Auto) (1.8-7.0) K/uL Lymph # (Auto) (1.0-4.3) K/uL Tillman # (Auto) (0.0-0.8) K/uL Eos # (Auto) (0.0-0.7) K/uL Baso # (Auto) (0.0-0.2) K/uL PT (9.7-12.2) SECONDS INR APTT (21-34) SECONDS Puncture Site pCO2 (35-45) mm/Hg pO2 (80-100) mm/Hg HCO3 (21-28) mmol/L ABG pH (7.35-7.45) ABG Total CO2 (22-28) mmol/L ABG O2 Saturation (95-98) % ABG Base Excess (-2.0-3.0) mmol/L Yonatan Test ABG Potassium (3.6-5.2) mmol/L A-a O2 Difference mm/Hg Respiratory Index Glucose (75-110) mg/dl Lactate (0.7-2.1) mmol/L Liter Flow FiO2 % Sodium (132-148) mmol/L Potassium (3.6-5.2) mmol/L Chloride (98-107) mmol/L Carbon Dioxide (22-30) mmol/L Anion Gap (10-20) BUN (9-20) mg/dL Creatinine (0.8-1.5) mg/dL Est GFR ( Amer) Est GFR (Non-Af Amer) Random Glucose (75-110) mg/dL Lactic Acid 1.7 (0.7-2.1) mmol/L Calcium (8.6-10.4) mg/dl Magnesium (1.6-2.3) mg/dL Iron (49-181) ug/dL TIBC (250-450) ug/dL % Saturation (20-55) Total Bilirubin (0.2-1.3) mg/dL AST (17-59) U/L ALT (21-72) U/L Alkaline Phosphatase (38-126) U/L Ammonia (9-33) umol/L CK-MB (Mass) (0.0-3.38) ng/mL Troponin I (0.00-0.120) ng/mL NT-Pro-B Natriuret Pep (0-900) pg/mL Total Protein (6.3-8.3) g/dL Albumin (3.5-5.0) g/dL Globulin (2.2-3.9) gm/dL Albumin/Globulin Ratio (1.0-2.1) Lipase (23-300) U/L Procalcitonin 0.07 L (0.19-0.49) NG/ML Arterial Blood Potassium (3.6-5.2) mmol/L Urine Color (YELLOW) Urine Clarity (Clear) Urine pH (5.0-8.0) Ur Specific Tina (1.003-1.030) Urine Protein (NEGATIVE) mg/dL Urine Glucose (UA) (Normal) mg/dL Urine Ketones (NEGATIVE) mg/dL Urine Blood (NEGATIVE) Urine Nitrate (NEGATIVE) Urine Bilirubin (NEGATIVE) Urine Urobilinogen (0.2-1.0) mg/dL Ur Leukocyte Esterase (Negative) Jesu/uL Urine WBC (Auto) (0-5) /hpf Urine RBC (Auto) (0-3) /hpf Digoxin < 0.4 L (0.8-2.0) ng/mL Urine Opiates Screen (NEGATIVE) Urine Methadone Screen (NEGATIVE) Ur Barbiturates Screen (NEGATIVE) Ur Phencyclidine Scrn (NEGATIVE) Ur Amphetamines Screen (NEGATIVE) U Benzodiazepines Scrn (NEGATIVE) U Oth Cocaine Metabols (NEGATIVE) U Cannabinoids Screen (NEGATIVE) Alcohol, Quantitative (0-10) mg/dl 06/23/18 06/23/18 06/23/18 Range/Units 05:40 05:40 04:31 WBC (4.8-10.8) K/uL RBC (4.40-5.90) Mil/uL Hgb (12.0-18.0) g/dL Hct (35.0-51.0) % MCV (80.0-94.0) fL MCH (27.0-31.0) pg MCHC (33.0-37.0) g/dL RDW (11.5-14.5) % Plt Count (130-400) K/uL MPV (7.2-11.7) fL Neut % (Auto) (50.0-75.0) % Lymph % (Auto) (20.0-40.0) % Tillman % (Auto) (0.0-10.0) % Eos % (Auto) (0.0-4.0) % Baso % (Auto) (0.0-2.0) % Neut # (Auto) (1.8-7.0) K/uL Lymph # (Auto) (1.0-4.3) K/uL Tillman # (Auto) (0.0-0.8) K/uL Eos # (Auto) (0.0-0.7) K/uL Baso # (Auto) (0.0-0.2) K/uL PT 11.6 (9.7-12.2) SECONDS INR 1.1 APTT 29.0 (21-34) SECONDS Puncture Site pCO2 (35-45) mm/Hg pO2 (80-100) mm/Hg HCO3 (21-28) mmol/L ABG pH (7.35-7.45) ABG Total CO2 (22-28) mmol/L ABG O2 Saturation (95-98) % ABG Base Excess (-2.0-3.0) mmol/L Yonatan Test ABG Potassium (3.6-5.2) mmol/L A-a O2 Difference mm/Hg Respiratory Index Glucose (75-110) mg/dl Lactate (0.7-2.1) mmol/L Liter Flow FiO2 % Sodium (132-148) mmol/L Potassium (3.6-5.2) mmol/L Chloride (98-107) mmol/L Carbon Dioxide (22-30) mmol/L Anion Gap (10-20) BUN (9-20) mg/dL Creatinine (0.8-1.5) mg/dL Est GFR ( Amer) Est GFR (Non-Af Amer) Random Glucose (75-110) mg/dL Lactic Acid (0.7-2.1) mmol/L Calcium (8.6-10.4) mg/dl Magnesium (1.6-2.3) mg/dL Iron (49-181) ug/dL TIBC (250-450) ug/dL % Saturation (20-55) Total Bilirubin (0.2-1.3) mg/dL AST (17-59) U/L ALT (21-72) U/L Alkaline Phosphatase (38-126) U/L Ammonia (9-33) umol/L CK-MB (Mass) (0.0-3.38) ng/mL Troponin I 0.0240 (0.00-0.120) ng/mL NT-Pro-B Natriuret Pep 802 (0-900) pg/mL Total Protein (6.3-8.3) g/dL Albumin (3.5-5.0) g/dL Globulin (2.2-3.9) gm/dL Albumin/Globulin Ratio (1.0-2.1) Lipase 94 (23-300) U/L Procalcitonin (0.19-0.49) NG/ML Arterial Blood Potassium (3.6-5.2) mmol/L Urine Color (YELLOW) Urine Clarity (Clear) Urine pH (5.0-8.0) Ur Specific Tina (1.003-1.030) Urine Protein (NEGATIVE) mg/dL Urine Glucose (UA) (Normal) mg/dL Urine Ketones (NEGATIVE) mg/dL Urine Blood (NEGATIVE) Urine Nitrate (NEGATIVE) Urine Bilirubin (NEGATIVE) Urine Urobilinogen (0.2-1.0) mg/dL Ur Leukocyte Esterase (Negative) Jesu/uL Urine WBC (Auto) (0-5) /hpf Urine RBC (Auto) (0-3) /hpf Digoxin (0.8-2.0) ng/mL Urine Opiates Screen (NEGATIVE) Urine Methadone Screen (NEGATIVE) Ur Barbiturates Screen (NEGATIVE) Ur Phencyclidine Scrn (NEGATIVE) Ur Amphetamines Screen (NEGATIVE) U Benzodiazepines Scrn (NEGATIVE) U Oth Cocaine Metabols (NEGATIVE) U Cannabinoids Screen (NEGATIVE) Alcohol, Quantitative 139 H (0-10) mg/dl 06/23/18 06/23/18 06/23/18 Range/Units 01:26 01:22 01:09 WBC (4.8-10.8) K/uL RBC (4.40-5.90) Mil/uL Hgb (12.0-18.0) g/dL Hct (35.0-51.0) % MCV (80.0-94.0) fL MCH (27.0-31.0) pg MCHC (33.0-37.0) g/dL RDW (11.5-14.5) % Plt Count (130-400) K/uL MPV (7.2-11.7) fL Neut % (Auto) (50.0-75.0) % Lymph % (Auto) (20.0-40.0) % Tillman % (Auto) (0.0-10.0) % Eos % (Auto) (0.0-4.0) % Baso % (Auto) (0.0-2.0) % Neut # (Auto) (1.8-7.0) K/uL Lymph # (Auto) (1.0-4.3) K/uL Tillman # (Auto) (0.0-0.8) K/uL Eos # (Auto) (0.0-0.7) K/uL Baso # (Auto) (0.0-0.2) K/uL PT (9.7-12.2) SECONDS INR APTT (21-34) SECONDS Puncture Site Rr pCO2 43 (35-45) mm/Hg pO2 73 L (80-100) mm/Hg HCO3 26.0 (21-28) mmol/L ABG pH 7.40 (7.35-7.45) ABG Total CO2 27.9 (22-28) mmol/L ABG O2 Saturation 97.5 (95-98) % ABG Base Excess 1.5 (-2.0-3.0) mmol/L Ynoatan Test Pos ABG Potassium 3.1 L (3.6-5.2) mmol/L A-a O2 Difference 23.0 mm/Hg Respiratory Index 0.3 Glucose 127 H (75-110) mg/dl Lactate 1.5 (0.7-2.1) mmol/L Liter Flow 0 FiO2 21.0 % Sodium 135.0 136 (132-148) mmol/L Potassium 3.9 (3.6-5.2) mmol/L Chloride 102.0 99 (98-107) mmol/L Carbon Dioxide 23 (22-30) mmol/L Anion Gap 17 (10-20) BUN 6 L (9-20) mg/dL Creatinine 0.5 L (0.8-1.5) mg/dL Est GFR ( Amer) > 60 Est GFR (Non-Af Amer) > 60 Random Glucose 136 H (75-110) mg/dL Lactic Acid (0.7-2.1) mmol/L Calcium 8.2 L (8.6-10.4) mg/dl Magnesium 1.8 (1.6-2.3) mg/dL Iron (49-181) ug/dL TIBC (250-450) ug/dL % Saturation (20-55) Total Bilirubin 0.6 (0.2-1.3) mg/dL AST 165 H (17-59) U/L ALT 122 H D (21-72) U/L Alkaline Phosphatase 317 H (38-126) U/L Ammonia (9-33) umol/L CK-MB (Mass) (0.0-3.38) ng/mL Troponin I (0.00-0.120) ng/mL NT-Pro-B Natriuret Pep (0-900) pg/mL Total Protein 7.0 (6.3-8.3) g/dL Albumin 3.9 (3.5-5.0) g/dL Globulin 3.2 (2.2-3.9) gm/dL Albumin/Globulin Ratio 1.2 (1.0-2.1) Lipase (23-300) U/L Procalcitonin (0.19-0.49) NG/ML Arterial Blood Potassium 3.1 L (3.6-5.2) mmol/L Urine Color Yellow (YELLOW) Urine Clarity Clear (Clear) Urine pH 6.0 (5.0-8.0) Ur Specific Tina 1.008 (1.003-1.030) Urine Protein Negative (NEGATIVE) mg/dL Urine Glucose (UA) Normal (Normal) mg/dL Urine Ketones Negative (NEGATIVE) mg/dL Urine Blood Negative (NEGATIVE) Urine Nitrate Negative (NEGATIVE) Urine Bilirubin Negative (NEGATIVE) Urine Urobilinogen 2.0 (0.2-1.0) mg/dL Ur Leukocyte Esterase Neg (Negative) Jesu/uL Urine WBC (Auto) 1 (0-5) /hpf Urine RBC (Auto) < 1 (0-3) /hpf Digoxin (0.8-2.0) ng/mL Urine Opiates Screen (NEGATIVE) Urine Methadone Screen (NEGATIVE) Ur Barbiturates Screen (NEGATIVE) Ur Phencyclidine Scrn (NEGATIVE) Ur Amphetamines Screen (NEGATIVE) U Benzodiazepines Scrn (NEGATIVE) U Oth Cocaine Metabols (NEGATIVE) U Cannabinoids Screen (NEGATIVE) Alcohol, Quantitative (0-10) mg/dl 06/23/18 Range/Units 01:09 WBC 9.6 D (4.8-10.8) K/uL RBC 3.41 L (4.40-5.90) Mil/uL Hgb 8.9 L D (12.0-18.0) g/dL Hct 28.7 L (35.0-51.0) % MCV 84.0 D (80.0-94.0) fL MCH 26.2 L (27.0-31.0) pg MCHC 31.2 L (33.0-37.0) g/dL RDW 17.6 H (11.5-14.5) % Plt Count 343 D (130-400) K/uL MPV 8.2 (7.2-11.7) fL Neut % (Auto) 66.0 (50.0-75.0) % Lymph % (Auto) 14.0 L (20.0-40.0) % Tillman % (Auto) 19.0 H (0.0-10.0) % Eos % (Auto) 1.0 (0.0-4.0) % Baso % (Auto) 0.0 (0.0-2.0) % Neut # (Auto) 6.4 (1.8-7.0) K/uL Lymph # (Auto) 1.4 (1.0-4.3) K/uL Tillman # (Auto) 1.8 H (0.0-0.8) K/uL Eos # (Auto) 0.1 (0.0-0.7) K/uL Baso # (Auto) 0.0 (0.0-0.2) K/uL PT (9.7-12.2) SECONDS INR APTT (21-34) SECONDS Puncture Site pCO2 (35-45) mm/Hg pO2 (80-100) mm/Hg HCO3 (21-28) mmol/L ABG pH (7.35-7.45) ABG Total CO2 (22-28) mmol/L ABG O2 Saturation (95-98) % ABG Base Excess (-2.0-3.0) mmol/L Yonatan Test ABG Potassium (3.6-5.2) mmol/L A-a O2 Difference mm/Hg Respiratory Index Glucose (75-110) mg/dl Lactate (0.7-2.1) mmol/L Liter Flow FiO2 % Sodium (132-148) mmol/L Potassium (3.6-5.2) mmol/L Chloride (98-107) mmol/L Carbon Dioxide (22-30) mmol/L Anion Gap (10-20) BUN (9-20) mg/dL Creatinine (0.8-1.5) mg/dL Est GFR ( Amer) Est GFR (Non-Af Amer) Random Glucose (75-110) mg/dL Lactic Acid (0.7-2.1) mmol/L Calcium (8.6-10.4) mg/dl Magnesium (1.6-2.3) mg/dL Iron (49-181) ug/dL TIBC (250-450) ug/dL % Saturation (20-55) Total Bilirubin (0.2-1.3) mg/dL AST (17-59) U/L ALT (21-72) U/L Alkaline Phosphatase (38-126) U/L Ammonia (9-33) umol/L CK-MB (Mass) (0.0-3.38) ng/mL Troponin I (0.00-0.120) ng/mL NT-Pro-B Natriuret Pep (0-900) pg/mL Total Protein (6.3-8.3) g/dL Albumin (3.5-5.0) g/dL Globulin (2.2-3.9) gm/dL Albumin/Globulin Ratio (1.0-2.1) Lipase (23-300) U/L Procalcitonin (0.19-0.49) NG/ML Arterial Blood Potassium (3.6-5.2) mmol/L Urine Color (YELLOW) Urine Clarity (Clear) Urine pH (5.0-8.0) Ur Specific Tina (1.003-1.030) Urine Protein (NEGATIVE) mg/dL Urine Glucose (UA) (Normal) mg/dL Urine Ketones (NEGATIVE) mg/dL Urine Blood (NEGATIVE) Urine Nitrate (NEGATIVE) Urine Bilirubin (NEGATIVE) Urine Urobilinogen (0.2-1.0) mg/dL Ur Leukocyte Esterase (Negative) Jesu/uL Urine WBC (Auto) (0-5) /hpf Urine RBC (Auto) (0-3) /hpf Digoxin (0.8-2.0) ng/mL Urine Opiates Screen (NEGATIVE) Urine Methadone Screen (NEGATIVE) Ur Barbiturates Screen (NEGATIVE) Ur Phencyclidine Scrn (NEGATIVE) Ur Amphetamines Screen (NEGATIVE) U Benzodiazepines Scrn (NEGATIVE) U Oth Cocaine Metabols (NEGATIVE) U Cannabinoids Screen (NEGATIVE) Alcohol, Quantitative (0-10) mg/dl Laboratory Results - last 24 hr 06/23/18 06/23/18 06/23/18 01:09 01:09 01:22 WBC 9.6 D RBC 3.41 L Hgb 8.9 L D Hct 28.7 L MCV 84.0 D MCH 26.2 L MCHC 31.2 L RDW 17.6 H Plt Count 343 D MPV 8.2 Neut % (Auto) 66.0 Lymph % (Auto) 14.0 L Tillman % (Auto) 19.0 H Eos % (Auto) 1.0 Baso % (Auto) 0.0 Neut # (Auto) 6.4 Lymph # (Auto) 1.4 Tillman # (Auto) 1.8 H Eos # (Auto) 0.1 Baso # (Auto) 0.0 PT INR APTT Puncture Site Rr pCO2 43 pO2 73 L HCO3 26.0 ABG pH 7.40 ABG Total CO2 27.9 ABG O2 Saturation 97.5 ABG Base Excess 1.5 Yonatan Test Pos ABG Potassium 3.1 L A-a O2 Difference 23.0 Respiratory Index 0.3 Glucose 127 H Lactate 1.5 Liter Flow 0 FiO2 21.0 Sodium 136 135.0 Potassium 3.9 Chloride 99 102.0 Carbon Dioxide 23 Anion Gap 17 BUN 6 L Creatinine 0.5 L Est GFR ( Amer) > 60 Est GFR (Non-Af Amer) > 60 Random Glucose 136 H Lactic Acid Calcium 8.2 L Magnesium 1.8 Iron TIBC % Saturation Total Bilirubin 0.6 AST 165 H ALT 122 H D Alkaline Phosphatase 317 H Ammonia CK-MB (Mass) Troponin I NT-Pro-B Natriuret Pep Total Protein 7.0 Albumin 3.9 Globulin 3.2 Albumin/Globulin Ratio 1.2 Lipase Procalcitonin Arterial Blood Potassium 3.1 L Urine Color Urine Clarity Urine pH Ur Specific Tina Urine Protein Urine Glucose (UA) Urine Ketones Urine Blood Urine Nitrate Urine Bilirubin Urine Urobilinogen Ur Leukocyte Esterase Urine WBC (Auto) Urine RBC (Auto) Digoxin Urine Opiates Screen Urine Methadone Screen Ur Barbiturates Screen Ur Phencyclidine Scrn Ur Amphetamines Screen U Benzodiazepines Scrn U Oth Cocaine Metabols U Cannabinoids Screen Alcohol, Quantitative 06/23/18 06/23/18 06/23/18 01:26 04:31 05:40 WBC RBC Hgb Hct MCV MCH MCHC RDW Plt Count MPV Neut % (Auto) Lymph % (Auto) Tillman % (Auto) Eos % (Auto) Baso % (Auto) Neut # (Auto) Lymph # (Auto) Tillman # (Auto) Eos # (Auto) Baso # (Auto) PT 11.6 INR 1.1 APTT 29.0 Puncture Site pCO2 pO2 HCO3 ABG pH ABG Total CO2 ABG O2 Saturation ABG Base Excess Yonatan Test ABG Potassium A-a O2 Difference Respiratory Index Glucose Lactate Liter Flow FiO2 Sodium Potassium Chloride Carbon Dioxide Anion Gap BUN Creatinine Est GFR ( Amer) Est GFR (Non-Af Amer) Random Glucose Lactic Acid Calcium Magnesium Iron TIBC % Saturation Total Bilirubin AST ALT Alkaline Phosphatase Ammonia CK-MB (Mass) Troponin I NT-Pro-B Natriuret Pep Total Protein Albumin Globulin Albumin/Globulin Ratio Lipase Procalcitonin Arterial Blood Potassium Urine Color Yellow Urine Clarity Clear Urine pH 6.0 Ur Specific Tina 1.008 Urine Protein Negative Urine Glucose (UA) Normal Urine Ketones Negative Urine Blood Negative Urine Nitrate Negative Urine Bilirubin Negative Urine Urobilinogen 2.0 Ur Leukocyte Esterase Neg Urine WBC (Auto) 1 Urine RBC (Auto) < 1 Digoxin Urine Opiates Screen Urine Methadone Screen Ur Barbiturates Screen Ur Phencyclidine Scrn Ur Amphetamines Screen U Benzodiazepines Scrn U Oth Cocaine Metabols U Cannabinoids Screen Alcohol, Quantitative 139 H 06/23/18 06/23/18 06/23/18 05:40 07:07 07:07 WBC RBC Hgb Hct MCV MCH MCHC RDW Plt Count MPV Neut % (Auto) Lymph % (Auto) Tillman % (Auto) Eos % (Auto) Baso % (Auto) Neut # (Auto) Lymph # (Auto) Tillman # (Auto) Eos # (Auto) Baso # (Auto) PT INR APTT Puncture Site pCO2 pO2 HCO3 ABG pH ABG Total CO2 ABG O2 Saturation ABG Base Excess Yonatan Test ABG Potassium A-a O2 Difference Respiratory Index Glucose Lactate Liter Flow FiO2 Sodium Potassium Chloride Carbon Dioxide Anion Gap BUN Creatinine Est GFR ( Amer) Est GFR (Non-Af Amer) Random Glucose Lactic Acid 1.7 Calcium Magnesium Iron TIBC % Saturation Total Bilirubin AST ALT Alkaline Phosphatase Ammonia CK-MB (Mass) Troponin I 0.0240 NT-Pro-B Natriuret Pep 802 Total Protein Albumin Globulin Albumin/Globulin Ratio Lipase 94 Procalcitonin 0.07 L Arterial Blood Potassium Urine Color Urine Clarity Urine pH Ur Specific Tina Urine Protein Urine Glucose (UA) Urine Ketones Urine Blood Urine Nitrate Urine Bilirubin Urine Urobilinogen Ur Leukocyte Esterase Urine WBC (Auto) Urine RBC (Auto) Digoxin Urine Opiates Screen Urine Methadone Screen Ur Barbiturates Screen Ur Phencyclidine Scrn Ur Amphetamines Screen U Benzodiazepines Scrn U Oth Cocaine Metabols U Cannabinoids Screen Alcohol, Quantitative 06/23/18 06/23/18 06/23/18 07:07 07:07 07:07 WBC RBC Hgb Hct MCV MCH MCHC RDW Plt Count MPV Neut % (Auto) Lymph % (Auto) Tillman % (Auto) Eos % (Auto) Baso % (Auto) Neut # (Auto) Lymph # (Auto) Tillman # (Auto) Eos # (Auto) Baso # (Auto) PT INR APTT Puncture Site pCO2 pO2 HCO3 ABG pH ABG Total CO2 ABG O2 Saturation ABG Base Excess Yonatan Test ABG Potassium A-a O2 Difference Respiratory Index Glucose Lactate Liter Flow FiO2 Sodium Potassium Chloride Carbon Dioxide Anion Gap BUN Creatinine Est GFR ( Amer) Est GFR (Non-Af Amer) Random Glucose Lactic Acid Calcium Magnesium Iron TIBC % Saturation Total Bilirubin AST ALT Alkaline Phosphatase Ammonia CK-MB (Mass) 4.39 H Troponin I 0.0310 NT-Pro-B Natriuret Pep Total Protein Albumin Globulin Albumin/Globulin Ratio Lipase Procalcitonin Arterial Blood Potassium Urine Color Urine Clarity Urine pH Ur Specific Tina Urine Protein Urine Glucose (UA) Urine Ketones Urine Blood Urine Nitrate Urine Bilirubin Urine Urobilinogen Ur Leukocyte Esterase Urine WBC (Auto) Urine RBC (Auto) Digoxin < 0.4 L Urine Opiates Screen Negative Urine Methadone Screen Negative Ur Barbiturates Screen Negative Ur Phencyclidine Scrn Negative Ur Amphetamines Screen Negative U Benzodiazepines Scrn Negative U Oth Cocaine Metabols Negative U Cannabinoids Screen Positive H Alcohol, Quantitative 06/23/18 06/23/18 06/23/18 07:07 08:32 17:00 WBC RBC Hgb Hct MCV MCH MCHC RDW Plt Count MPV Neut % (Auto) Lymph % (Auto) Tillman % (Auto) Eos % (Auto) Baso % (Auto) Neut # (Auto) Lymph # (Auto) Tillman # (Auto) Eos # (Auto) Baso # (Auto) PT INR APTT Puncture Site pCO2 pO2 HCO3 ABG pH ABG Total CO2 ABG O2 Saturation ABG Base Excess Yonatan Test ABG Potassium A-a O2 Difference Respiratory Index Glucose Lactate Liter Flow FiO2 Sodium Potassium Chloride Carbon Dioxide Anion Gap BUN Creatinine Est GFR ( Amer) Est GFR (Non-Af Amer) Random Glucose Lactic Acid Calcium Magnesium Iron < 10 L TIBC 136 L % Saturation < 7.35 L Total Bilirubin AST ALT Alkaline Phosphatase Ammonia 117 H CK-MB (Mass) Troponin I 0.0400 NT-Pro-B Natriuret Pep Total Protein Albumin Globulin Albumin/Globulin Ratio Lipase Procalcitonin Arterial Blood Potassium Urine Color Urine Clarity Urine pH Ur Specific Tina Urine Protein Urine Glucose (UA) Urine Ketones Urine Blood Urine Nitrate Urine Bilirubin Urine Urobilinogen Ur Leukocyte Esterase Urine WBC (Auto) Urine RBC (Auto) Digoxin Urine Opiates Screen Urine Methadone Screen Ur Barbiturates Screen Ur Phencyclidine Scrn Ur Amphetamines Screen U Benzodiazepines Scrn U Oth Cocaine Metabols U Cannabinoids Screen Alcohol, Quantitative 06/23/18 17:00 WBC RBC Hgb Hct MCV MCH MCHC RDW Plt Count MPV Neut % (Auto) Lymph % (Auto) [place] % (Auto) Eos % (Auto) Baso % (Auto) Neut # (Auto) Lymph # (Auto) [place] # (Auto) Eos # (Auto) Baso # (Auto) PT INR APTT Puncture Site pCO2 pO2 HCO3 ABG pH ABG Total CO2 ABG O2 Saturation ABG Base Excess Yonatan Test ABG Potassium A-a O2 Difference Respiratory Index Glucose Lactate Liter Flow FiO2 Sodium Potassium Chloride Carbon Dioxide Anion Gap BUN Creatinine Est GFR ( Amer) Est GFR (Non-Af Amer) Random Glucose Lactic Acid Calcium Magnesium Iron 18 L TIBC 454 H % Saturation 4 L Total Bilirubin AST ALT Alkaline Phosphatase Ammonia CK-MB (Mass) Troponin I NT-Pro-B Natriuret Pep Total Protein Albumin Globulin Albumin/Globulin Ratio Lipase Procalcitonin Arterial Blood Potassium Urine Color Urine Clarity Urine pH Ur Specific [place] Urine Protein Urine Glucose (UA) Urine Ketones Urine Blood Urine Nitrate Urine Bilirubin Urine Urobilinogen Ur Leukocyte Esterase Urine WBC (Auto) Urine RBC (Auto) Digoxin Urine Opiates Screen Urine Methadone Screen Ur Barbiturates Screen Ur Phencyclidine Scrn Ur Amphetamines Screen U Benzodiazepines Scrn U Oth Cocaine Metabols U Cannabinoids Screen Alcohol, Quantitative Radiology Impressions: Radiology Impressions Chest X-Ray 06/23/18 00:36 IMPRESSION: No active pulmonary disease. Severe cardiomegaly and pulmonary venous congestion with redistribution. Head CT 06/23/18 14:34 IMPRESSION: High attenuation dependent material within the right maxillary sinus. Blood products versus inspissated mucus. No evidence of fracture. 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 Chronic white matter ischemic change. EKG/Cardiology Studies: Cardiology / EKG Studies 06/23/18 00:36 ELECTROCARDIOGRAM Stat Comment: Mode Of Transportation: BED Reason For Exam: SOB 06/23/18 07:32 EKG [ELECTROCARDIOGRAM] Stat Comment: Mode Of Transportation: Reason For Exam: CHANGE IN PT CONDITION. CARDIAC RHYTHM CHANGE 06/23/18 11:11 EKG [ELECTROCARDIOGRAM] Stat Comment: Mode Of Transportation: BED Reason For Exam: cardizem drip for afib Critical Care Progress Note - Nutrition Nutrition: Nutrition Category Date Time Status Regular Diet [DIET] Diets 06/23/18 Dinner Active Attending/Attestation - Attestation I have personally seen and examined this patient.: Yes I have fully participated in the care of the patient.: Yes I have reviewed all pertinent clinical information: Yes Notes (Text): 06/23/18 19:10 I have seen and examined the patient. Medical records, lab studies, and imaging were reviewed by me and a management plan was formulated on multidisciplinary rounds with resident Dr. Morataya. I agree with their documented assessment and plan. Patient going through alcohol withdrawal and needing diuresis for CHF exacerbation. Critical Care Time 35 minutes. Multi-disciplinary rounds were performed with house staff, nursing, speech therapy, respiratory therapy, pharmacy and nutrition with integrated input from the primary team/attending and other consulting services. The documented time is cumulative and includes review of patient data/exams/labs/chart review and examination of the patient on rounds and throughout the day; time is exclusive of any procedures or teaching time.
--- NOTE | 2018-06-23 15:51 | CT ---
Date of service: 06/23/2018 PROCEDURE: CT HEAD WITHOUT CONTRAST. HISTORY: AMS COMPARISON: 08/12/2017 TECHNIQUE: Axial computed tomography images were obtained through the head/brain without intravenous contrast. Radiation dose: Total exam DLP = 1337.38 mGy-cm. This CT exam was performed using one or more of the following dose reduction techniques: Automated exposure control, adjustment of the mA and/or kV according to patient size, and/or use of iterative reconstruction technique. FINDINGS: HEMORRHAGE: No intracranial hemorrhage. BRAIN: No intracranial mass. Probable small old right frontal white matter infarct. No evidence of acute infarct. Mild periventricular and deep white matter lucency consistent with chronic microvascular ischemic change.. VENTRICLES: Unremarkable. No hydrocephalus. CALVARIUM: Unremarkable. PARANASAL SINUSES: There is dependent high attenuation material in the right maxillary sinus. Hyperdensity may reflect blood products. No evidence of fracture. This increased attenuation may also result from inspissated mucous secretions. Small left maxillary retention cyst/polyp. MASTOID AIR CELLS: Unremarkable OTHER FINDINGS: None. IMPRESSION: High attenuation dependent material within the right maxillary sinus. Blood products versus inspissated mucus. No evidence of fracture. 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 Chronic white matter ischemic change.
[2018-06-23 17:25] LABS: IRON 18 ug/dL (49-181)
[2018-06-23] MEDS: (Novolin 70/30) NPH/Regular 70/30 Units/ml 10 ml vial SC SCH ×2 (17:27→21:41)
[2018-06-23 17:35] LABS: % IRON SATURATION 4 (20-55); TOTAL IRON BINDING CAPACITY 454 ug/dL (250-450)
--- NOTE | 2018-06-23 20:41 | CP.PCM.HP ---
Past Patient History - Infectious Disease Hx of Infectious Diseases: None - Tetanus Immunizations Tetanus Immunization: Unknown - Past Medical History & Family History Past Medical History?: Yes - Past Social History Smoking Status: Never Smoked - CARDIAC Hx Atrial Fibrillation: Yes Hx Cardia Arrhythmia: Yes Hx Congestive Heart Failure: Yes Hx Hypercholesterolemia: Yes Hx Hypertension: Yes Hx Pacemaker: Yes - PULMONARY Hx Asthma: Yes Hx Chronic Obstructive Pulmonary Disease (COPD): Yes Hx Emphysema: Yes Hx Pneumonia: Yes - NEUROLOGICAL Hx Seizures: Yes - HEENT Hx HEENT Problems: No - RENAL Hx Chronic Kidney Disease: No - ENDOCRINE/METABOLIC Hx Endocrine Disorders: No Hx Diabetes Mellitus Type 2: No - HEMATOLOGICAL/ONCOLOGICAL Hx Blood Disorders: Yes - INTEGUMENTARY Hx Dermatological Problems: No - MUSCULOSKELETAL/RHEUMATOLOGICAL Hx Falls: No - GASTROINTESTINAL Hx Gastrointestinal Disorders: No - GENITOURINARY/GYNECOLOGICAL Hx Genitourinary Disorders: No - PSYCHIATRIC Hx Substance Use: No (denied) - SURGICAL HISTORY Hx Coronary Artery Bypass Graft: Yes (double) Hx Coronary Stent: Yes (4) - ANESTHESIA Hx Anesthesia: No (denied) Hx Anesthesia Reactions: No Hx Malignant Hyperthermia: No Meds Allergies/Adverse Reactions: Allergies Allergy/AdvReac Type Severity Reaction Status Date / Time No Known Allergies Allergy Verified 06/23/18 00:19 Physical Exam - Constitutional Appears: Well - Head Exam Head Exam: ATRAUMATIC, NORMAL INSPECTION, NORMOCEPHALIC - Eye Exam Eye Exam: EOMI, Normal appearance, PERRL Pupil Exam: NORMAL ACCOMODATION, PERRL - ENT Exam ENT Exam: Mucous Membranes Moist, Normal Exam - Neck Exam Neck exam: Positive for: Normal Inspection - Respiratory Exam Respiratory Exam: Decreased Breath Sounds - Cardiovascular Exam Cardiovascular Exam: REGULAR RHYTHM, +S1, +S2 - GI/Abdominal Exam GI & Abdominal Exam: Diminished Bowel Sounds, Soft - Rectal Exam Rectal Exam: Deferred - Neurological Exam Neurological exam: Oriented x3 Results - Vital Signs Recent Vital Signs: Last Vital Signs Temp 97.7 F 06/23/18 14:00 Pulse 158 H 06/23/18 14:00 Resp 22 06/23/18 14:00 BP 112/74 06/23/18 14:00 Pulse Ox 100 06/23/18 14:00 - Labs Result Diagrams: 06/23/18 01:09 06/23/18 01:09 Labs: Laboratory Results - last 24 hr 05/05/0906/23/18 06/23/18 01:09 01:09 01:22 WBC 9.6 D RBC 3.41 L Hgb 8.9 L D Hct 28.7 L MCV 84.0 D MCH 26.2 L MCHC 31.2 L RDW 17.6 H Plt Count 343 D MPV 8.2 Neut % (Auto) 66.0 Lymph % (Auto) 14.0 L Grand % (Auto) 19.0 H Eos % (Auto) 1.0 Baso % (Auto) 0.0 Neut # (Auto) 6.4 Lymph # (Auto) 1.4 Grand # (Auto) 1.8 H Eos # (Auto) 0.1 Baso # (Auto) 0.0 PT INR APTT Puncture Site Rr pCO2 43 pO2 73 L HCO3 26.0 ABG pH 7.40 ABG Total CO2 27.9 ABG O2 Saturation 97.5 ABG Base Excess 1.5 Yonatan Test Pos ABG Potassium 3.1 L A-a O2 Difference 23.0 Respiratory Index 0.3 Glucose 127 H Lactate 1.5 Liter Flow 0 FiO2 21.0 Sodium 136 135.0 Potassium 3.9 Chloride 99 102.0 Carbon Dioxide 23 Anion Gap 17 BUN 6 L Creatinine 0.5 L Est GFR ( Amer) > 60 Est GFR (Non-Af Amer) > 60 Random Glucose 136 H Lactic Acid Calcium 8.2 L Magnesium 1.8 Iron TIBC % Saturation Total Bilirubin 0.6 AST 165 H ALT 122 H D Alkaline Phosphatase 317 H Ammonia CK-MB (Mass) Troponin I NT-Pro-B Natriuret Pep Total Protein 7.0 Albumin 3.9 Globulin 3.2 Albumin/Globulin Ratio 1.2 Lipase Procalcitonin Arterial Blood Potassium 3.1 L Urine Color Urine Clarity Urine pH Ur Specific [place] Urine Protein Urine Glucose (UA) Urine Ketones Urine Blood Urine Nitrate Urine Bilirubin Urine Urobilinogen Ur Leukocyte Esterase Urine WBC (Auto) Urine RBC (Auto) Digoxin Urine Opiates Screen Urine Methadone Screen Ur Barbiturates Screen Ur Phencyclidine Scrn Ur Amphetamines Screen U Benzodiazepines Scrn U Oth Cocaine Metabols U Cannabinoids Screen Alcohol, Quantitative 06/23/18 06/23/18 06/23/18 01:26 04:31 05:40 WBC RBC Hgb Hct MCV MCH MCHC RDW Plt Count MPV Neut % (Auto) Lymph % (Auto) Grand % (Auto) Eos % (Auto) Baso % (Auto) Neut # (Auto) Lymph # (Auto) Grand # (Auto) Eos # (Auto) Baso # (Auto) PT 11.6 INR 1.1 APTT 29.0 Puncture Site pCO2 pO2 HCO3 ABG pH ABG Total CO2 ABG O2 Saturation ABG Base Excess Yonatan Test ABG Potassium A-a O2 Difference Respiratory Index Glucose Lactate Liter Flow FiO2 Sodium Potassium Chloride Carbon Dioxide Anion Gap BUN Creatinine Est GFR ( Amer) Est GFR (Non-Af Amer) Random Glucose Lactic Acid Calcium Magnesium Iron TIBC % Saturation Total Bilirubin AST ALT Alkaline Phosphatase Ammonia CK-MB (Mass) Troponin I NT-Pro-B Natriuret Pep Total Protein Albumin Globulin Albumin/Globulin Ratio Lipase Procalcitonin Arterial Blood Potassium Urine Color Yellow Urine Clarity Clear Urine pH 6.0 Ur Specific [place] 1.008 Urine Protein Negative Urine Glucose (UA) Normal Urine Ketones Negative Urine Blood Negative Urine Nitrate Negative Urine Bilirubin Negative Urine Urobilinogen 2.0 Ur Leukocyte Esterase Neg Urine WBC (Auto) 1 Urine RBC (Auto) < 1 Digoxin Urine Opiates Screen Urine Methadone Screen Ur Barbiturates Screen Ur Phencyclidine Scrn Ur Amphetamines Screen U Benzodiazepines Scrn U Oth Cocaine Metabols U Cannabinoids Screen Alcohol, Quantitative 139 H 06/23/18 06/23/18 06/23/18 05:40 07:07 07:07 WBC RBC Hgb Hct MCV MCH MCHC RDW Plt Count MPV Neut % (Auto) Lymph % (Auto) Grand % (Auto) Eos % (Auto) Baso % (Auto) Neut # (Auto) Lymph # (Auto) Grand # (Auto) Eos # (Auto) Baso # (Auto) PT INR APTT Puncture Site pCO2 pO2 HCO3 ABG pH ABG Total CO2 ABG O2 Saturation ABG Base Excess Yonatan Test ABG Potassium A-a O2 Difference Respiratory Index Glucose Lactate Liter Flow FiO2 Sodium Potassium Chloride Carbon Dioxide Anion Gap BUN Creatinine Est GFR ( Amer) Est GFR (Non-Af Amer) Random Glucose Lactic Acid 1.7 Calcium Magnesium Iron TIBC % Saturation Total Bilirubin AST ALT Alkaline Phosphatase Ammonia CK-MB (Mass) Troponin I 0.0240 NT-Pro-B Natriuret Pep 802 Total Protein Albumin Globulin Albumin/Globulin Ratio Lipase 94 Procalcitonin 0.07 L Arterial Blood Potassium Urine Color Urine Clarity Urine pH Ur Specific [place] Urine Protein Urine Glucose (UA) Urine Ketones Urine Blood Urine Nitrate Urine Bilirubin Urine Urobilinogen Ur Leukocyte Esterase Urine WBC (Auto) Urine RBC (Auto) Digoxin Urine Opiates Screen Urine Methadone Screen Ur Barbiturates Screen Ur Phencyclidine Scrn Ur Amphetamines Screen U Benzodiazepines Scrn U Oth Cocaine Metabols U Cannabinoids Screen Alcohol, Quantitative 06/23/18 06/23/18 06/23/18 07:07 07:07 07:07 WBC RBC Hgb Hct MCV MCH MCHC RDW Plt Count MPV Neut % (Auto) Lymph % (Auto) Grand % (Auto) Eos % (Auto) Baso % (Auto) Neut # (Auto) Lymph # (Auto) Grand # (Auto) Eos # (Auto) Baso # (Auto) PT INR APTT Puncture Site pCO2 pO2 HCO3 ABG pH ABG Total CO2 ABG O2 Saturation ABG Base Excess Yonatan Test ABG Potassium A-a O2 Difference Respiratory Index Glucose Lactate Liter Flow FiO2 Sodium Potassium Chloride Carbon Dioxide Anion Gap BUN Creatinine Est GFR ( Amer) Est GFR (Non-Af Amer) Random Glucose Lactic Acid Calcium Magnesium Iron TIBC % Saturation Total Bilirubin AST ALT Alkaline Phosphatase Ammonia CK-MB (Mass) 4.39 H Troponin I 0.0310 NT-Pro-B Natriuret Pep Total Protein Albumin Globulin Albumin/Globulin Ratio Lipase Procalcitonin Arterial Blood Potassium Urine Color Urine Clarity Urine pH Ur Specific [place] Urine Protein Urine Glucose (UA) Urine Ketones Urine Blood Urine Nitrate Urine Bilirubin Urine Urobilinogen Ur Leukocyte Esterase Urine WBC (Auto) Urine RBC (Auto) Digoxin < 0.4 L Urine Opiates Screen Negative Urine Methadone Screen Negative Ur Barbiturates Screen Negative Ur Phencyclidine Scrn Negative Ur Amphetamines Screen Negative U Benzodiazepines Scrn Negative U Oth Cocaine Metabols Negative U Cannabinoids Screen Positive H Alcohol, Quantitative 06/23/18 06/23/18 06/23/18 07:07 08:32 17:00 WBC RBC Hgb Hct MCV MCH MCHC RDW Plt Count MPV Neut % (Auto) Lymph % (Auto) Grand % (Auto) Eos % (Auto) Baso % (Auto) Neut # (Auto) Lymph # (Auto) Grand # (Auto) Eos # (Auto) Baso # (Auto) PT INR APTT Puncture Site pCO2 pO2 HCO3 ABG pH ABG Total CO2 ABG O2 Saturation ABG Base Excess Yonatan Test ABG Potassium A-a O2 Difference Respiratory Index Glucose Lactate Liter Flow FiO2 Sodium Potassium Chloride Carbon Dioxide Anion Gap BUN Creatinine Est GFR ( Amer) Est GFR (Non-Af Amer) Random Glucose Lactic Acid Calcium Magnesium Iron < 10 L TIBC 136 L % Saturation < 7.35 L Total Bilirubin AST ALT Alkaline Phosphatase Ammonia 117 H CK-MB (Mass) Troponin I 0.0400 NT-Pro-B Natriuret Pep Total Protein Albumin Globulin Albumin/Globulin Ratio Lipase Procalcitonin Arterial Blood Potassium Urine Color Urine Clarity Urine pH Ur Specific [place] Urine Protein Urine Glucose (UA) Urine Ketones Urine Blood Urine Nitrate Urine Bilirubin Urine Urobilinogen Ur Leukocyte Esterase Urine WBC (Auto) Urine RBC (Auto) Digoxin Urine Opiates Screen Urine Methadone Screen Ur Barbiturates Screen Ur Phencyclidine Scrn Ur Amphetamines Screen U Benzodiazepines Scrn U Oth Cocaine Metabols U Cannabinoids Screen Alcohol, Quantitative 06/23/18 17:00 WBC RBC Hgb Hct MCV MCH MCHC RDW Plt Count MPV Neut % (Auto) Lymph % (Auto) Grand % (Auto) Eos % (Auto) Baso % (Auto) Neut # (Auto) Lymph # (Auto) Grand # (Auto) Eos # (Auto) Baso # (Auto) PT INR APTT Puncture Site pCO2 pO2 HCO3 ABG pH ABG Total CO2 ABG O2 Saturation ABG Base Excess Yonatan Test ABG Potassium A-a O2 Difference Respiratory Index Glucose Lactate Liter Flow FiO2 Sodium Potassium Chloride Carbon Dioxide Anion Gap BUN Creatinine Est GFR ( Amer) Est GFR (Non-Af Amer) Random Glucose Lactic Acid Calcium Magnesium Iron 18 L TIBC 454 H % Saturation 4 L Total Bilirubin AST ALT Alkaline Phosphatase Ammonia CK-MB (Mass) Troponin I NT-Pro-B Natriuret Pep Total Protein Albumin Globulin Albumin/Globulin Ratio Lipase Procalcitonin Arterial Blood Potassium Urine Color Urine Clarity Urine pH Ur Specific [place] Urine Protein Urine Glucose (UA) Urine Ketones Urine Blood Urine Nitrate Urine Bilirubin Urine Urobilinogen Ur Leukocyte Esterase Urine WBC (Auto) Urine RBC (Auto) Digoxin Urine Opiates Screen Urine Methadone Screen Ur Barbiturates Screen Ur Phencyclidine Scrn Ur Amphetamines Screen U Benzodiazepines Scrn U Oth Cocaine Metabols U Cannabinoids Screen Alcohol, Quantitative
[2018-06-23 23:45] LABS: CK-MB 3.12 ng/mL (0.0-3.38); TROPONIN I 0.045 ng/mL (0.00-0.120)
--- NOTE | 2018-06-23 23:56 | CP.PCM.CON ---
History of Present Illness - History of Present Illness History of Present Illness: CC: Dyspnea, cardiac evaluation 57 y/o male with pmx of CAD, severe systolic heart failure, polysubstance abuse, active smoking presents to [facility] with c/o difficulty breathing. Patient was seen on bi-pap, difficulty breathing, poor historian 2nd dyspnea. (+)dyspnea, deneis any chest pain, denies any haeadaches Pmx: cad/chf/etoh abuse Psug hx: s/p AICD sh: (+)ETOH (+)smoking allergies: deneis Review of Systems - Review of Systems Systems not reviewed;Unavailable: Respiratory Distress, Intoxicated Physical Exam - Head Exam Head Exam: ATRAUMATIC, NORMAL INSPECTION, NORMOCEPHALIC - Eye Exam Eye Exam: EOMI - ENT Exam ENT Exam: Mucous Membranes Moist - Respiratory Exam Respiratory Exam: Accessory Muscle Use, Prolonged Expiratory Phase, Rales, Wheezes - Cardiovascular Exam Cardiovascular Exam: REGULAR RHYTHM, +S1, +S2, Systolic Murmur - GI/Abdominal Exam GI & Abdominal Exam: Distended, Normal Bowel Sounds, Organomegaly, Soft. absent: Guarding, Hernia, Pulsatile Mass, Rebound, Tenderness - Extremities Exam Extremities exam: Positive for: pedal edema - Neurological Exam Neurological exam: Alert - Skin Skin Exam: Normal Color, Warm Past Patient History - Infectious Disease Hx of Infectious Diseases: None - Tetanus Immunizations Tetanus Immunization: Unknown - Past Medical History & Family History Past Medical History?: Yes - Past Social History Smoking Status: Never Smoked - CARDIAC Hx Atrial Fibrillation: Yes Hx Cardia Arrhythmia: Yes Hx Congestive Heart Failure: Yes Hx Hypercholesterolemia: Yes Hx Hypertension: Yes Hx Pacemaker: Yes - PULMONARY Hx Asthma: Yes Hx Chronic Obstructive Pulmonary Disease (COPD): Yes Hx Emphysema: Yes Hx Pneumonia: Yes - NEUROLOGICAL Hx Seizures: Yes - HEENT Hx HEENT Problems: No - RENAL Hx Chronic Kidney Disease: No - ENDOCRINE/METABOLIC Hx Endocrine Disorders: No Hx Diabetes Mellitus Type 2: No - HEMATOLOGICAL/ONCOLOGICAL Hx Blood Disorders: Yes - INTEGUMENTARY Hx Dermatological Problems: No - MUSCULOSKELETAL/RHEUMATOLOGICAL Hx Falls: No - GASTROINTESTINAL Hx Gastrointestinal Disorders: No - GENITOURINARY/GYNECOLOGICAL Hx Genitourinary Disorders: No - PSYCHIATRIC Hx Substance Use: No (denied) - SURGICAL HISTORY Hx Coronary Artery Bypass Graft: Yes (double) Hx Coronary Stent: Yes (4) - ANESTHESIA Hx Anesthesia: No (denied) Hx Anesthesia Reactions: No Hx Malignant Hyperthermia: No Meds Allergies/Adverse Reactions: Allergies Allergy/AdvReac Type Severity Reaction Status Date / Time No Known Allergies Allergy Verified 06/23/18 00:19 - Medications Medications: Current Medications Albuterol/Ipratropium (Duoneb 3 Mg/0.5 Mg (3 Ml) Ud) 3 ml INH RQ6 PATIENCE Last Admin: 06/23/18 19:18 Dose: 3 ml Enoxaparin Sodium (Lovenox) 30 mg SC DAILY PATIENCE Furosemide (Lasix) 40 mg IVP DAILY [facility] Last Admin: 06/23/18 10:32 Dose: 40 mg Guaifenesin (Robitussin) 100 mg PO Q4H PRN PRN Reason: Cough Last Admin: 06/23/18 21:41 Dose: 100 mg Piperacillin Sod/Tazobactam (Sod 3.375 gm/ Sodium Chloride) 100 mls @ 200 mls/hr IVPB Q6H PATIENCE; Protocol Last Admin: 06/23/18 23:13 Dose: 200 mls/hr Folic Acid 1 mg/ Sodium (Chloride) 100.2 mls @ 60 mls/hr IV DAILY PATIENCE Diltiazem HCl 125 mg/ Dextrose 125 mls @ 5 mls/hr IV .Q24H PATIENCE; Protocol Last Admin: 06/23/18 09:04 Dose: 5 mg/hr, 5 mls/hr Insulin Human Isoph/Insulin Regular (Novolin 70/30 (70/30 Units/Ml) 10 Ml) 0 units SC ACHS PATIENCE; Protocol Last Admin: 06/23/18 21:41 Dose: Not Given Lorazepam (Ativan) 1 mg IVP Q6H PRN PRN Reason: Anxiety Last Admin: 06/23/18 21:40 Dose: 1 mg Montelukast Sodium (Singulair) 10 mg PO HS PATIENCE Last Admin: 06/23/18 21:40 Dose: 10 mg Ondansetron HCl (Zofran Inj) 4 mg IVP Q6 PRN PRN Reason: Nausea/Vomiting Pantoprazole Sodium (Protonix Ec Tab) 40 mg PO DAILY PATIENCE Last Admin: 06/23/18 15:47 Dose: 40 mg Rifaximin (Xifaxan) 550 mg PO BID PATIENCE; Protocol Last Admin: 06/23/18 17:34 Dose: 550 mg Thiamine HCl (Vitamin B1 Inj) 200 mg IV Q8H PATIENCE Stop: 06/26/18 00:46 Results - Vital Signs Recent Vital Signs: Last Vital Signs Temp 99.3 F 06/23/18 20:00 Pulse 103 H 06/23/18 23:30 Resp 17 06/23/18 23:30 BP 122/78 06/23/18 23:30 Pulse Ox 100 06/23/18 20:00 - Labs Result Diagrams: 06/23/18 01:09 06/23/18 01:09 Labs: Laboratory Results - last 24 hr 06/23/18 06/23/18 06/23/18 01:09 01:09 01:22 WBC 9.6 D RBC 3.41 L Hgb 8.9 L D Hct 28.7 L MCV 84.0 D MCH 26.2 L MCHC 31.2 L RDW 17.6 H Plt Count 343 D MPV 8.2 Neut % (Auto) 66.0 Lymph % (Auto) 14.0 L [place] % (Auto) 19.0 H Eos % (Auto) 1.0 Baso % (Auto) 0.0 Neut # (Auto) 6.4 Lymph # (Auto) 1.4 [place] # (Auto) 1.8 H Eos # (Auto) 0.1 Baso # (Auto) 0.0 PT INR APTT Puncture Site Rr pCO2 43 pO2 73 L HCO3 26.0 ABG pH 7.40 ABG Total CO2 27.9 ABG O2 Saturation 97.5 ABG Base Excess 1.5 [place]onatan Test Pos ABG Potassium 3.1 L A-a O2 Difference 23.0 Respiratory Index 0.3 Glucose 127 H Lactate 1.5 Liter Flow 0 FiO2 21.0 Sodium 136 135.0 Potassium 3.9 Chloride 99 102.0 Carbon Dioxide 23 Anion Gap 17 BUN 6 L Creatinine 0.5 L Est GFR ( Amer) > 60 Est GFR (Non-Af Amer) > 60 Random Glucose 136 H Lactic Acid Calcium 8.2 L Magnesium 1.8 Iron TIBC % Saturation Total Bilirubin 0.6 AST 165 H ALT 122 H D Alkaline Phosphatase 317 H Ammonia Total Creatine Kinase CK-MB (Mass) Troponin I NT-Pro-B Natriuret Pep Total Protein 7.0 Albumin 3.9 Globulin 3.2 Albumin/Globulin Ratio 1.2 Lipase Procalcitonin Arterial Blood Potassium 3.1 L Urine Color Urine Clarity Urine pH Ur Specific [place] Urine Protein Urine Glucose (UA) Urine Ketones Urine Blood Urine Nitrate Urine Bilirubin Urine Urobilinogen Ur Leukocyte Esterase Urine WBC (Auto) Urine RBC (Auto) Digoxin Urine Opiates Screen Urine Methadone Screen Ur Barbiturates Screen Ur Phencyclidine Scrn Ur Amphetamines Screen U Benzodiazepines Scrn U Oth Cocaine Metabols U Cannabinoids Screen Alcohol, Quantitative 06/23/18 06/23/18 06/23/18 01:26 04:31 05:40 WBC RBC Hgb Hct MCV MCH MCHC RDW Plt Count MPV Neut % (Auto) Lymph % (Auto) [place] % (Auto) Eos % (Auto) Baso % (Auto) Neut # (Auto) Lymph # (Auto) [place] # (Auto) Eos # (Auto) Baso # (Auto) PT 11.6 INR 1.1 APTT 29.0 Puncture Site pCO2 pO2 HCO3 ABG pH ABG Total CO2 ABG O2 Saturation ABG Base Excess Yonatan Test ABG Potassium A-a O2 Difference Respiratory Index Glucose Lactate Liter Flow FiO2 Sodium Potassium Chloride Carbon Dioxide Anion Gap BUN Creatinine Est GFR ( Amer) Est GFR (Non-Af Amer) Random Glucose Lactic Acid Calcium Magnesium Iron TIBC % Saturation Total Bilirubin AST ALT Alkaline Phosphatase Ammonia Total Creatine Kinase CK-MB (Mass) Troponin I NT-Pro-B Natriuret Pep Total Protein Albumin Globulin Albumin/Globulin Ratio Lipase Procalcitonin Arterial Blood Potassium Urine Color Yellow Urine Clarity Clear Urine pH 6.0 Ur Specific [place] 1.008 Urine Protein Negative Urine Glucose (UA) Normal Urine Ketones Negative Urine Blood Negative Urine Nitrate Negative Urine Bilirubin Negative Urine Urobilinogen 2.0 Ur Leukocyte Esterase Neg Urine WBC (Auto) 1 Urine RBC (Auto) < 1 Digoxin Urine Opiates Screen Urine Methadone Screen Ur Barbiturates Screen Ur Phencyclidine Scrn Ur Amphetamines Screen U Benzodiazepines Scrn U Oth Cocaine Metabols U Cannabinoids Screen Alcohol, Quantitative 139 H 06/23/18 06/23/18 06/23/18 05:40 07:07 07:07 WBC RBC Hgb Hct MCV MCH MCHC RDW Plt Count MPV Neut % (Auto) Lymph % (Auto) [place] % (Auto) Eos % (Auto) Baso % (Auto) Neut # (Auto) Lymph # (Auto) [place] # (Auto) Eos # (Auto) Baso # (Auto) PT INR APTT Puncture Site pCO2 pO2 HCO3 ABG pH ABG Total CO2 ABG O2 Saturation ABG Base Excess [place] Test ABG Potassium A-a O2 Difference Respiratory Index Glucose Lactate Liter Flow FiO2 Sodium Potassium Chloride Carbon Dioxide Anion Gap BUN Creatinine Est GFR ( Amer) Est GFR (Non-Af Amer) Random Glucose Lactic Acid 1.7 Calcium Magnesium Iron TIBC % Saturation Total Bilirubin AST ALT Alkaline Phosphatase Ammonia Total Creatine Kinase CK-MB (Mass) Troponin I 0.0240 NT-Pro-B Natriuret Pep 802 Total Protein Albumin Globulin Albumin/Globulin Ratio Lipase 94 Procalcitonin 0.07 L Arterial Blood Potassium Urine Color Urine Clarity Urine pH Ur Specific [place] Urine Protein Urine Glucose (UA) Urine Ketones Urine Blood Urine Nitrate Urine Bilirubin Urine Urobilinogen Ur Leukocyte Esterase Urine WBC (Auto) Urine RBC (Auto) Digoxin Urine Opiates Screen Urine Methadone Screen Ur Barbiturates Screen Ur Phencyclidine Scrn Ur Amphetamines Screen U Benzodiazepines Scrn U Oth Cocaine Metabols U Cannabinoids Screen Alcohol, Quantitative 06/23/18 06/23/18 06/23/18 07:07 07:07 07:07 WBC RBC Hgb Hct MCV MCH MCHC RDW Plt Count MPV Neut % (Auto) Lymph % (Auto) [place] % (Auto) Eos % (Auto) Baso % (Auto) Neut # (Auto) Lymph # (Auto) [place] # (Auto) Eos # (Auto) Baso # (Auto) PT INR APTT Puncture Site pCO2 pO2 HCO3 ABG pH ABG Total CO2 ABG O2 Saturation ABG Base Excess [place]onatan Test ABG Potassium A-a O2 Difference Respiratory Index Glucose Lactate Liter Flow FiO2 Sodium Potassium Chloride Carbon Dioxide Anion Gap BUN Creatinine Est GFR ( Amer) Est GFR (Non-Af Amer) Random Glucose Lactic Acid Calcium Magnesium Iron TIBC % Saturation Total Bilirubin AST ALT Alkaline Phosphatase Ammonia Total Creatine Kinase CK-MB (Mass) 4.39 H Troponin I 0.0310 NT-Pro-B Natriuret Pep Total Protein Albumin Globulin Albumin/Globulin Ratio Lipase Procalcitonin Arterial Blood Potassium Urine Color Urine Clarity Urine pH Ur Specific [place] Urine Protein Urine Glucose (UA) Urine Ketones Urine Blood Urine Nitrate Urine Bilirubin Urine Urobilinogen Ur Leukocyte Esterase Urine WBC (Auto) Urine RBC (Auto) Digoxin < 0.4 L Urine Opiates Screen Negative Urine Methadone Screen Negative Ur Barbiturates Screen Negative Ur Phencyclidine Scrn Negative Ur Amphetamines Screen Negative U Benzodiazepines Scrn Negative U Oth Cocaine Metabols Negative U Cannabinoids Screen Positive H Alcohol, Quantitative 06/23/18 06/23/18 06/23/18 07:07 08:32 17:00 WBC RBC Hgb Hct MCV MCH MCHC RDW Plt Count MPV Neut % (Auto) Lymph % (Auto) [place] % (Auto) Eos % (Auto) Baso % (Auto) Neut # (Auto) Lymph # (Auto) [place] # (Auto) Eos # (Auto) Baso # (Auto) PT INR APTT Puncture Site pCO2 pO2 HCO3 ABG pH ABG Total CO2 ABG O2 Saturation ABG Base Excess [place]onatan Test ABG Potassium A-a O2 Difference Respiratory Index Glucose Lactate Liter Flow FiO2 Sodium Potassium Chloride Carbon Dioxide Anion Gap BUN Creatinine Est GFR ( Amer) Est GFR (Non-Af Amer) Random Glucose Lactic Acid Calcium Magnesium Iron < 10 L TIBC 136 L % Saturation < 7.35 L Total Bilirubin AST ALT Alkaline Phosphatase Ammonia 117 H Total Creatine Kinase CK-MB (Mass) Troponin I 0.0400 NT-Pro-B Natriuret Pep Total Protein Albumin Globulin Albumin/Globulin Ratio Lipase Procalcitonin Arterial Blood Potassium Urine Color Urine Clarity Urine pH Ur Specific [place] Urine Protein Urine Glucose (UA) Urine Ketones Urine Blood Urine Nitrate Urine Bilirubin Urine Urobilinogen Ur Leukocyte Esterase Urine WBC (Auto) Urine RBC (Auto) Digoxin Urine Opiates Screen Urine Methadone Screen Ur Barbiturates Screen Ur Phencyclidine Scrn Ur Amphetamines Screen U Benzodiazepines Scrn U Oth Cocaine Metabols U Cannabinoids Screen Alcohol, Quantitative 06/23/18 06/23/18 17:00 23:17 WBC RBC Hgb Hct MCV MCH MCHC RDW Plt Count MPV Neut % (Auto) Lymph % (Auto) [place] % (Auto) Eos % (Auto) Baso % (Auto) Neut # (Auto) Lymph # (Auto) [place] # (Auto) Eos # (Auto) Baso # (Auto) PT INR APTT Puncture Site pCO2 pO2 HCO3 ABG pH ABG Total CO2 ABG O2 Saturation ABG Base Excess [place]onatan Test ABG Potassium A-a O2 Difference Respiratory Index Glucose Lactate Liter Flow FiO2 Sodium Potassium Chloride Carbon Dioxide Anion Gap BUN Creatinine Est GFR ( Amer) Est GFR (Non-Af Amer) Random Glucose Lactic Acid Calcium Magnesium Iron 18 L TIBC 454 H % Saturation 4 L Total Bilirubin AST ALT Alkaline Phosphatase Ammonia Total Creatine Kinase 27 L CK-MB (Mass) 3.12 Troponin I 0.0450 NT-Pro-B Natriuret Pep Total Protein Albumin Globulin Albumin/Globulin Ratio Lipase Procalcitonin Arterial Blood Potassium Urine Color Urine Clarity Urine pH Ur Specific [place] Urine Protein Urine Glucose (UA) Urine Ketones Urine Blood Urine Nitrate Urine Bilirubin Urine Urobilinogen Ur Leukocyte Esterase Urine WBC (Auto) Urine RBC (Auto) Digoxin Urine Opiates Screen Urine Methadone Screen Ur Barbiturates Screen Ur Phencyclidine Scrn Ur Amphetamines Screen U Benzodiazepines Scrn U Oth Cocaine Metabols U Cannabinoids Screen Alcohol, Quantitative Assessment & Plan - Assessment and Plan (Free Text) Assessment: Assessment: 57 yo male with PMHx COPD, polysubstance abuse presents in acute respiratory failure and AMS. Pulm COPD Exacerbation -PulDr. Carlos mukherjee -Solumedrol 125 IV given ED --> Solumedrol d/c'd -Poss asp PNA 2/2 ETOH -ABx: Zosyn -Tolerating 2L Cardio -Cardiac monitoring Neuro AMS -Likely 2/2 hepatic encephalopathy/etoh withdrawal -CT head w/o contrast - f/u ETOH Detox -Ativan 1mg IV Q4 -CIWA -Neurochecks GI Hepatic Encephalopathy -Ammonia 130s -Rifaxamin Nephro -Lasix 40 mg IV daily -Strict Is and Os PPx -Lovenox following CT head results -Protonix 40 PO daily -Ativan/CIWA protocol
[2018-06-24] MEDS: Albuterol-Ipratrop 3 mg / 0.5 (3 ml) UD INH SCH ×3 (01:37→14:25)
[2018-06-24] MEDS: Piperacillin/Tazobact 3.375 GM in Sodium Chloride 100 ML IVPB SCH ×2 (04:58→11:30)
[2018-06-24] MEDS: guaiFENesin 100 mg/5 ml Syrup UD PO PRN ×2 (04:59→12:34)
[2018-06-24 05:59] LABS: BASO % 0.6 % (0.0-2.0); EOS # 0.1 K/uL (0.0-0.7); EOS % 0.9 % (0.0-4.0); HEMOGLOBIN 8.9 g/dL (12.0-18.0); LYMPH # 1.7 K/uL (1.0-4.3); LYMPH % 21.9 % (20.0-40.0); MEAN CELL VOLUME 83.4 fL (80.0-94.0); MEAN CORPUSCULAR HEMOGLOBIN 26.1 pg (27.0-31.0); MEAN CORPUSCULAR HGB CONC 31.3 g/dL (33.0-37.0); MEAN PLATELET VOLUME 8.7 fL (7.2-11.7); MONO # 1.7 K/uL (0.0-0.8); MONO % 21.4 % (0.0-10.0); NEUT # 4.4 K/uL (1.8-7.0); NEUT % 55.2 % (50.0-75.0); NRBC % 0.9 % (0.0-2.0); PLATELET COUNT 346 K/uL (130-400); RBC 3.41 Mil/uL (4.40-5.90); RED CELL DISTRIBUTION WIDTH 17.6 % (11.5-14.5)
[2018-06-24 06:17] LABS: ALB/GLOB RATIO 1.2 (1.0-2.1); ALBUMIN 3.4 g/dL (3.5-5.0); ALT/SGPT 97 U/L (21-72); AST/SGOT 103 U/L (17-59); BLOOD UREA NITROGEN 10 mg/dL (9-20); CALCIUM 8.3 mg/dl (8.6-10.4); GFR NON-AFRICAN AMERICAN > 60
[2018-06-24] MEDS: (Novolin 70/30) NPH/Regular 70/30 Units/ml 10 ml vial SC SCH ×2 (07:30→11:30)
[2018-06-24 08:33] VITALS: O2SAT 99
[2018-06-24 08:41] LABS: ANISOCYTOSIS MODERATE; HYPOCHROMIC MODERATE; LYMPHOCYTE 21 % (20-40); MONOCYTE 22 % (0-10); NEUTROPHIL 57 % (50-75); NUCLEATED RED BLOOD CELL 1 % (0-0); PLATELET ESTIMATE NORMAL (NORMAL); POLYCHROMIC SLIGHT; TOTAL CELLS COUNTED 100
[2018-06-24 08:42] LABS: OVALOCYTES SLIGHT; POIKILOCYTOSIS SLIGHT
[2018-06-24] MEDS ORDERED: Thiamine 100 mg/ml Inj IV SCH (08:45)
[2018-06-24 08:54] LABS: BURR CELLS SLIGHT; SCHISTOCYTES SLIGHT
[2018-06-24 08:55] LABS: LARGE PLATELETS PRESENT; TARGET CELLS SLIGHT; TOXIC GRANULATION PRESENT
[2018-06-24] MEDS: Pantoprazole 40 mg EC Tab PO SCH (09:04)
[2018-06-24] MEDS ORDERED: Enoxaparin 30 mg Syringe SC SCH (10:00)
[2018-06-24] MEDS: Potassium Chloride 20 mEq ER Tab PO SCH ×2 (10:03→12:24)
--- NOTE | 2018-06-24 13:26 | RAD ---
Date of service: 06/24/2018 HISTORY: chf COMPARISON: Comparison is made with 06/23/2018 TECHNIQUE: 1 view obtained. FINDINGS: LUNGS: No significant interval changes noted. PLEURA: No significant pleural effusion identified, no pneumothorax apparent. CARDIOVASCULAR: No aortic atherosclerotic calcification present. Mild cardiomegaly is noted. Single wire left-sided pacemaker/AICD is seen in place. Post sternotomy changes are again noted. No pulmonary vascular congestion. OSSEOUS STRUCTURES: No significant abnormalities. VISUALIZED UPPER ABDOMEN: Normal. OTHER FINDINGS: None. IMPRESSION: No significant interval changes.
--- NOTE | 2018-06-24 13:38 | CP.CCUPN ---
CCU Subjective - Physician Review Events Since Last Encounter (Free Text): 06/24/18 13:36 no complaints, out of etoh withdrawal. CCU Objective - Vital Signs / Intake & Output Vital Signs (Last 4 hours): Vital Signs Pulse Resp 06/24/18 11:00 91 H 13 06/24/18 10:00 91 H 14 Intake and Output (Last 8hrs): Intake & Output 06/23/18 06/24/18 06/24/18 22:59 06:59 14:59 Intake Total 2510 1095 1530 Output Total 2350 600 500 Balance 337 327 8409 Weight 158 lb 11.2 oz Intake: IV 115 Intake, IV Amount 770 830 150 Left Antecubital 15 Left External Jugular 735 600 150 Left Wrist 200 Lt Ext Jug 20 30 0 Oral 8008 487 2210 Output: Urine 2350 600 Urine, Voided 2350 600 Stool 500 Other: # Bowel Movements 1 - Physical Exam Head: Positive for: Atraumatic, Normocephalic Pupils: Positive for: PERRL Extroacular Muscles: Positive for: EOMI Mouth: Positive for: Moist Mucous Membranes Respiratory/Chest: Positive for: Clear to Auscultation. Negative for: Accessory Muscle Use - Medications Active Medications: Active Medications Generic Name Dose Route Start Last Admin Trade Name Freq PRN Reason Stop Dose Admin Albuterol/Ipratropium 3 ml 06/23/18 08:00 06/24/18 07:49 Duoneb 3 Mg/0.5 Mg (3 Ml) Ud INH 3 ml RQ6 PATIENCE Administration Apixaban 5 mg 06/24/18 12:15 Eliquis PO DAILY [facility] Guaifenesin 100 mg 06/23/18 12:07 06/24/18 12:34 Robitussin PO 100 mg Q4H PRN Administration Cough Piperacillin Sod/Tazobactam 100 mls @ 200 mls/hr 06/23/18 05:30 06/24/18 11:30 Sod 3.375 gm/ Sodium Chloride IVPB 200 mls/hr Q6H PATIENCE Administration Protocol Folic Acid 1 mg/ Sodium 100.2 mls @ 60 mls/hr 06/24/18 10:00 06/24/18 12:37 Chloride IV Not Given DAILY [facility] Insulin Human Isoph/Insulin Regular 0 units 06/23/18 16:30 05/04/19 11:30 Novolin 70/30 (70/30 Units/Ml) 10 Ml SC Not Given ACHS PATIENCE Protocol Lorazepam 1 mg 06/23/18 08:34 06/24/18 04:59 Ativan IVP 1 mg Q6H PRN Administration Anxiety Montelukast Sodium 10 mg 06/23/18 22:00 06/23/18 21:40 Singulair PO 10 mg HS PATIENCE Administration Ondansetron HCl 4 mg 06/23/18 11:44 Zofran Inj IVP Q6 PRN Nausea/Vomiting Pantoprazole Sodium 40 mg 06/23/18 13:15 06/24/18 09:04 Protonix Ec Tab PO 40 mg DAILY PATIENCE Administration Rifaximin 550 mg 06/23/18 18:00 06/24/18 09:05 Xifaxan PO 550 mg BID PATIENCE Administration Protocol Thiamine HCl 200 mg 06/24/18 08:45 06/24/18 09:03 Vitamin B1 Inj IV 06/26/18 00:46 200 mg Q8H PATIENCE Administration - Patient Studies Lab Studies: Microbiology Studies 06/23/18 05:20 Blood Culture - Preliminary Blood NO GROWTH AFTER 24 HOURS 06/23/18 05:50 Blood Culture - Preliminary Blood NO GROWTH AFTER 24 HOURS Lab Studies 06/24/18 06/24/18 06/24/18 Range/Units 05:54 05:54 05:54 WBC 8.0 (4.8-10.8) K/uL RBC 3.41 L (4.40-5.90) Mil/uL Hgb 8.9 L (12.0-18.0) g/dL Hct 28.4 L (35.0-51.0) % MCV 83.4 (80.0-94.0) fL MCH 26.1 L (27.0-31.0) pg MCHC 31.3 L (33.0-37.0) g/dL RDW 17.6 H (11.5-14.5) % Plt Count 346 (130-400) K/uL MPV 8.7 (7.2-11.7) fL Neut % (Auto) 55.2 (50.0-75.0) % Lymph % (Auto) 21.9 (20.0-40.0) % [place] % (Auto) 21.4 H (0.0-10.0) % Eos % (Auto) 0.9 (0.0-4.0) % Baso % (Auto) 0.6 (0.0-2.0) % Neut # (Auto) 4.4 (1.8-7.0) K/uL Lymph # (Auto) 1.7 (1.0-4.3) K/uL [place] # (Auto) 1.7 H (0.0-0.8) K/uL Eos # (Auto) 0.1 (0.0-0.7) K/uL Baso # (Auto) 0.0 (0.0-0.2) K/uL Neutrophils % (Manual) 57 (50-75) % Lymphocytes % (Manual) 21 (20-40) % Monocytes % (Manual) 22 H (0-10) % Nucleated RBC % 1 H (0-0) % Toxic Granulation Present Platelet Estimate Normal (NORMAL) Large Platelets Present Polychromasia Slight Hypochromasia (manual) Moderate Poikilocytosis (manual Slight Anisocytosis (manual) Moderate Target Cells Slight Ovalocytes Slight [place] Cells Slight Schistocytes Slight Sodium 134 (132-148) mmol/L Potassium 2.8 L (3.6-5.2) mmol/L Chloride 94 L (98-107) mmol/L Carbon Dioxide 32 H (22-30) mmol/L Anion Gap 11 (10-20) BUN 10 (9-20) mg/dL Creatinine 0.7 L (0.8-1.5) mg/dL Est GFR ( Amer) > 60 Est GFR (Non-Af Amer) > 60 Random Glucose 149 H (75-110) mg/dL Calcium 8.3 L (8.6-10.4) mg/dl Phosphorus 3.5 (2.5-4.5) mg/dL Magnesium 2.0 (1.6-2.3) mg/dL Iron (49-181) ug/dL TIBC (250-450) ug/dL % Saturation (20-55) Total Bilirubin 0.9 (0.2-1.3) mg/dL AST 103 H D (17-59) U/L ALT 97 H D (21-72) U/L Alkaline Phosphatase 252 H D (38-126) U/L Total Creatine Kinase (55-170) U/L CK-MB (Mass) (0.0-3.38) ng/mL Troponin I (0.00-0.120) ng/mL Total Protein 6.3 (6.3-8.3) g/dL Albumin 3.4 L (3.5-5.0) g/dL Globulin 2.9 (2.2-3.9) gm/dL Albumin/Globulin Ratio 1.2 (1.0-2.1) Stool Occult Blood Negative (NEGATIVE) 06/23/18 06/23/18 06/23/18 Range/Units 23:17 17:00 17:00 WBC (4.8-10.8) K/uL RBC (4.40-5.90) Mil/uL Hgb (12.0-18.0) g/dL Hct (35.0-51.0) % MCV (80.0-94.0) fL MCH (27.0-31.0) pg MCHC (33.0-37.0) g/dL RDW (11.5-14.5) % Plt Count (130-400) K/uL MPV (7.2-11.7) fL Neut % (Auto) (50.0-75.0) % Lymph % (Auto) (20.0-40.0) % [place] % (Auto) (0.0-10.0) % Eos % (Auto) (0.0-4.0) % Baso % (Auto) (0.0-2.0) % Neut # (Auto) (1.8-7.0) K/uL Lymph # (Auto) (1.0-4.3) K/uL [place] # (Auto) (0.0-0.8) K/uL Eos # (Auto) (0.0-0.7) K/uL Baso # (Auto) (0.0-0.2) K/uL Neutrophils % (Manual) (50-75) % Lymphocytes % (Manual) (20-40) % Monocytes % (Manual) (0-10) % Nucleated RBC % (0-0) % Toxic Granulation Platelet Estimate (NORMAL) Large Platelets Polychromasia Hypochromasia (manual) Poikilocytosis (manual Anisocytosis (manual) Target Cells Ovalocytes [place] Cells Schistocytes Sodium (132-148) mmol/L Potassium (3.6-5.2) mmol/L Chloride (98-107) mmol/L Carbon Dioxide (22-30) mmol/L Anion Gap (10-20) BUN (9-20) mg/dL Creatinine (0.8-1.5) mg/dL Est GFR ( Amer) Est GFR (Non-Af Amer) Random Glucose (75-110) mg/dL Calcium (8.6-10.4) mg/dl Phosphorus (2.5-4.5) mg/dL Magnesium (1.6-2.3) mg/dL Iron 18 L (49-181) ug/dL TIBC 454 H (250-450) ug/dL % Saturation 4 L (20-55) Total Bilirubin (0.2-1.3) mg/dL AST (17-59) U/L ALT (21-72) U/L Alkaline Phosphatase (38-126) U/L Total Creatine Kinase 27 L (55-170) U/L CK-MB (Mass) 3.12 (0.0-3.38) ng/mL Troponin I 0.0450 0.0400 (0.00-0.120) ng/mL Total Protein (6.3-8.3) g/dL Albumin (3.5-5.0) g/dL Globulin (2.2-3.9) gm/dL Albumin/Globulin Ratio (1.0-2.1) Stool Occult Blood (NEGATIVE) Laboratory Results - last 24 hr 06/23/18 06/23/18 06/23/18 17:00 17:00 23:17 WBC RBC Hgb Hct MCV MCH MCHC RDW Plt Count MPV Neut % (Auto) Lymph % (Auto) [place] % (Auto) Eos % (Auto) Baso % (Auto) Neut # (Auto) Lymph # (Auto) [place] # (Auto) Eos # (Auto) Baso # (Auto) Neutrophils % (Manual) Lymphocytes % (Manual) Monocytes % (Manual) Nucleated RBC % Toxic Granulation Platelet Estimate Large Platelets Polychromasia Hypochromasia (manual) Poikilocytosis (manual Anisocytosis (manual) Target Cells Ovalocytes [place] Cells Schistocytes Sodium Potassium Chloride Carbon Dioxide Anion Gap BUN Creatinine Est GFR ( Amer) Est GFR (Non-Af Amer) Random Glucose Calcium Phosphorus Magnesium Iron 18 L TIBC 454 H % Saturation 4 L Total Bilirubin AST ALT Alkaline Phosphatase Total Creatine Kinase 27 L CK-MB (Mass) 3.12 Troponin I 0.0400 0.0450 Total Protein Albumin Globulin Albumin/Globulin Ratio Stool Occult Blood 06/24/18 06/24/18 06/24/18 05:54 05:54 05:54 WBC 8.0 RBC 3.41 L Hgb 8.9 L Hct 28.4 L MCV 83.4 MCH 26.1 L MCHC 31.3 L RDW 17.6 H Plt Count 346 MPV 8.7 Neut % (Auto) 55.2 Lymph % (Auto) 21.9 [place] % (Auto) 21.4 H Eos % (Auto) 0.9 Baso % (Auto) 0.6 Neut # (Auto) 4.4 Lymph # (Auto) 1.7 [place] # (Auto) 1.7 H Eos # (Auto) 0.1 Baso # (Auto) 0.0 Neutrophils % (Manual) 57 Lymphocytes % (Manual) 21 Monocytes % (Manual) 22 H Nucleated RBC % 1 H Toxic Granulation Present Platelet Estimate Normal Large Platelets Present Polychromasia Slight Hypochromasia (manual) Moderate Poikilocytosis (manual Slight Anisocytosis (manual) Moderate Target Cells Slight Ovalocytes Slight [place] Cells Slight Schistocytes Slight Sodium 134 Potassium 2.8 L Chloride 94 L Carbon Dioxide 32 H Anion Gap 11 BUN 10 Creatinine 0.7 L Est GFR ( Amer) > 60 Est GFR (Non-Af Amer) > 60 Random Glucose 149 H Calcium 8.3 L Phosphorus 3.5 Magnesium 2.0 Iron TIBC % Saturation Total Bilirubin 0.9 AST 103 H D ALT 97 H D Alkaline Phosphatase 252 H D Total Creatine Kinase CK-MB (Mass) Troponin I Total Protein 6.3 Albumin 3.4 L Globulin 2.9 Albumin/Globulin Ratio 1.2 Stool Occult Blood Negative Radiology Impressions: Radiology Impressions Head CT 06/23/18 14:34 IMPRESSION: High attenuation dependent material within the right maxillary sinus. Blood products versus inspissated mucus. No evidence of fracture. 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 Chronic white matter ischemic change. Chest X-Ray 06/24/18 08:31 IMPRESSION: No significant interval changes. Review of Systems - Review of Systems All systems: reviewed and no additional remarkable complaints except (no complaints) Critical Care Progress Note - Nutrition Nutrition: Nutrition Category Date Time Status Regular Diet [DIET] Diets 06/23/18 Dinner Active Assessment/Plan (1) CHF exacerbation Assessment and plan: PAtient had an episode of afib yesterday, started on cardizem po and eliquis for stroke prophylaxis. discussed with cardio - Dr. Greer No longer going through alcohol withdrawal. f/u ammonia level, can continue rifaximin as prophylaxis. No eveidence of pneumonia, stopping abx. COPD, can continue [facility] COPD meds, pulmonary following will defer to Dr. Gonzalez. Clincally stable for downgrade to the floors. Critical Care time 35 minutes Current Visit: No Status: Acute
[2018-06-24] MEDS ORDERED: diltiaZEM 120 mg/24 Hours CD Cap PO SCH (13:45)
--- NOTE | 2018-06-24 14:31 | CARD ---
APPROVED REPORT Date of service: 06/23/2018 EKG Measurement Heart [id number] IN [id number] <Conclusion> Sinus tachycardia with occasional premature ventricular complexes Incomplete left bundle branch block Nonspecific ST and T wave abnormality Prolonged QT Abnormal ECG
--- NOTE | 2018-06-24 14:32 | CARD ---
APPROVED REPORT Date of service: 06/23/2018 EKG Measurement Heart [id number] <Conclusion> Atrial fibrillation with rapid ventricular response with premature ventricular or aberrantly conducted complexes Possible Inferior infarct, age undetermined ST & T wave abnormality, consider lateral ischemia Abnormal ECG
--- NOTE | 2018-06-24 14:48 | CP.PCM.CON ---
History of Present Illness - History of Present Illness History of Present Illness: Reason for consultation: COPD exacerbation 57-year-old male with history of coronary artery disease, alcohol abuse, long history of smoking presented to emergency room complaining of shortness of breath. Because of severity of symptoms patient was placed on BiPAP and admitted to intensive care unit. Patient today sitting comfortably in no distress, awake and responsive and for transfer to floor. Pmx: cad/chf/etoh abuse Psug hx: s/p AICD sh: (+)ETOH (+)smoking allergies: deneis Review of Systems - Review of Systems All systems: reviewed and no additional remarkable complaints except (Shortness of breath) Past Patient History - Infectious Disease Hx of Infectious Diseases: None - Tetanus Immunizations Tetanus Immunization: Unknown - Past Medical History & Family History Past Medical History?: Yes - Past Social History Smoking Status: Heavy Smoker > 10 Cigarettes Daily - CARDIAC Hx Atrial Fibrillation: Yes Hx Cardia Arrhythmia: Yes Hx Congestive Heart Failure: Yes Hx Hypercholesterolemia: Yes Hx Hypertension: Yes Hx Pacemaker: Yes - PULMONARY Hx Asthma: Yes Hx Chronic Obstructive Pulmonary Disease (COPD): Yes Hx Emphysema: Yes Hx Pneumonia: Yes - NEUROLOGICAL Hx Seizures: Yes - HEENT Hx HEENT Problems: No - RENAL Hx Chronic Kidney Disease: No - ENDOCRINE/METABOLIC Hx Endocrine Disorders: No Hx Diabetes Mellitus Type 2: No - HEMATOLOGICAL/ONCOLOGICAL Hx Blood Disorders: Yes - INTEGUMENTARY Hx Dermatological Problems: No - MUSCULOSKELETAL/RHEUMATOLOGICAL Hx Falls: No - GASTROINTESTINAL Hx Gastrointestinal Disorders: No - GENITOURINARY/GYNECOLOGICAL Hx Genitourinary Disorders: No - PSYCHIATRIC Hx Substance Use: No (denied) - SURGICAL HISTORY Hx Coronary Artery Bypass Graft: Yes (double) Hx Coronary Stent: Yes (4) - ANESTHESIA Hx Anesthesia: No (denied) Hx Anesthesia Reactions: No Hx Malignant Hyperthermia: No Meds Allergies/Adverse Reactions: Allergies Allergy/AdvReac Type Severity Reaction Status Date / Time No Known Allergies Allergy Verified 06/23/18 00:19 - Medications Medications: Current Medications Albuterol/Ipratropium (Duoneb 3 Mg/0.5 Mg (3 Ml) Ud) 3 ml INH RQ6 [facility] Last Admin: 06/24/18 14:25 Dose: 3 ml Apixaban (Eliquis) 5 mg PO Q12 [facility] Diltiazem HCl (Cardizem Cd) 120 mg PO DAILY [facility] Guaifenesin (Robitussin) 100 mg PO Q4H PRN PRN Reason: Cough Last Admin: 06/24/18 12:34 Dose: 100 mg Folic Acid 1 mg/ Sodium (Chloride) 100.2 mls @ 60 mls/hr IV DAILY [facility] Last Admin: 06/24/18 12:37 Dose: Not Given Insulin Human Isoph/Insulin Regular (Novolin 70/30 (70/30 Units/Ml) 10 Ml) 0 units SC ACHS [facility]; Protocol Last Admin: 06/24/18 11:30 Dose: Not Given Lorazepam (Ativan) 1 mg IVP Q6H PRN PRN Reason: Anxiety Last Admin: 06/24/18 04:59 Dose: 1 mg Montelukast Sodium (Singulair) 10 mg PO HS [facility] Last Admin: 06/23/18 21:40 Dose: 10 mg Ondansetron HCl (Zofran Inj) 4 mg IVP Q6 PRN PRN Reason: Nausea/Vomiting Rifaximin (Xifaxan) 550 mg PO BID [facility]; Protocol Last Admin: 06/24/18 09:05 Dose: 550 mg Thiamine HCl (Vitamin B1 Inj) 200 mg IV Q8H [facility] Stop: 06/26/18 00:46 Last Admin: 06/24/18 09:03 Dose: 200 mg Physical Exam - Head Exam Head Exam: ATRAUMATIC, NORMOCEPHALIC - Eye Exam Eye Exam: Normal appearance - ENT Exam ENT Exam: Mucous Membranes Moist - Neck Exam Neck exam: Positive for: Normal Inspection - Respiratory Exam Respiratory Exam: Rhonchi, Wheezes - Cardiovascular Exam Cardiovascular Exam: REGULAR RHYTHM Results - Vital Signs Recent Vital Signs: Last Vital Signs Temp 98.9 F 06/24/18 08:00 Pulse 91 H 06/24/18 11:00 Resp 13 06/24/18 11:00 BP 114/74 06/24/18 09:04 Pulse Ox 99 06/24/18 08:00 - Labs Result Diagrams: 06/24/18 05:54 06/24/18 05:54 Labs: Laboratory Results - last 24 hr 06/23/18 06/23/18 06/23/18 17:00 17:00 23:17 WBC RBC Hgb Hct MCV MCH MCHC RDW Plt Count MPV Neut % (Auto) Lymph % (Auto) [place] % (Auto) Eos % (Auto) Baso % (Auto) Neut # (Auto) Lymph # (Auto) [place] # (Auto) Eos # (Auto) Baso # (Auto) Neutrophils % (Manual) Lymphocytes % (Manual) Monocytes % (Manual) Nucleated RBC % Toxic Granulation Platelet Estimate Large Platelets Polychromasia Hypochromasia (manual) Poikilocytosis (manual Anisocytosis (manual) Target Cells Ovalocytes [place] Cells Schistocytes Sodium Potassium Chloride Carbon Dioxide Anion Gap BUN Creatinine Est GFR ( Amer) Est GFR (Non-Af Amer) Random Glucose Calcium Phosphorus Magnesium Iron 18 L TIBC 454 H % Saturation 4 L Total Bilirubin AST ALT Alkaline Phosphatase Total Creatine Kinase 27 L CK-MB (Mass) 3.12 Troponin I 0.0400 0.0450 Total Protein Albumin Globulin Albumin/Globulin Ratio Stool Occult Blood 06/24/18 06/24/18 06/24/18 05:54 05:54 05:54 WBC 8.0 RBC 3.41 L Hgb 8.9 L Hct 28.4 L MCV 83.4 MCH 26.1 L MCHC 31.3 L RDW 17.6 H Plt Count 346 MPV 8.7 Neut % (Auto) 55.2 Lymph % (Auto) 21.9 [place] % (Auto) 21.4 H Eos % (Auto) 0.9 Baso % (Auto) 0.6 Neut # (Auto) 4.4 Lymph # (Auto) 1.7 [place] # (Auto) 1.7 H Eos # (Auto) 0.1 Baso # (Auto) 0.0 Neutrophils % (Manual) 57 Lymphocytes % (Manual) 21 Monocytes % (Manual) 22 H Nucleated RBC % 1 H Toxic Granulation Present Platelet Estimate Normal Large Platelets Present Polychromasia Slight Hypochromasia (manual) Moderate Poikilocytosis (manual Slight Anisocytosis (manual) Moderate Target Cells Slight Ovalocytes Slight [place] Cells Slight Schistocytes Slight Sodium 134 Potassium 2.8 L Chloride 94 L Carbon Dioxide 32 H Anion Gap 11 BUN 10 Creatinine 0.7 L Est GFR ( Amer) > 60 Est GFR (Non-Af Amer) > 60 Random Glucose 149 H Calcium 8.3 L Phosphorus 3.5 Magnesium 2.0 Iron TIBC % Saturation Total Bilirubin 0.9 AST 103 H D ALT 97 H D Alkaline Phosphatase 252 H D Total Creatine Kinase CK-MB (Mass) Troponin I Total Protein 6.3 Albumin 3.4 L Globulin 2.9 Albumin/Globulin Ratio 1.2 Stool Occult Blood Negative Assessment & Plan (1) Acute exacerbation of chronic obstructive pulmonary disease (COPD) Status: Acute Comment: Nebulizer treatment. Brovana. IV steroids. BiPAP as needed
--- NOTE | 2018-06-24 15:30 | CP.PCM.PN ---
Subjective - Date & Time of Evaluation Date of Evaluation: 06/24/18 Time of Evaluation: 10:00 - Subjective Subjective: patient examined today no nausea no vomiting no dizziness no fever no shortness of breath no diarrhea no dts sleeping not rj to talk Objective - Vital Signs/Intake and Output Vital Signs (last 24 hours): Temp Pulse Resp BP Pulse Ox 98.9 F 91 H 13 114/74 99 06/24/18 08:00 06/24/18 11:00 06/24/18 11:00 06/24/18 09:04 06/24/18 08:00 Intake and Output: 06/24/18 06/24/18 06:59 18:59 Intake Total 1515 1530 Output Total 800 500 Balance 715 1030 - Medications Medications: Current Medications Albuterol/Ipratropium (Duoneb 3 Mg/0.5 Mg (3 Ml) Ud) 3 ml INH RQ6 [facility] Last Admin: 06/24/18 14:25 Dose: 3 ml Apixaban (Eliquis) 5 mg PO Q12 [facility] Arformoterol Tartrate (Brovana) 15 mcg INH RQ12@1000,2200 [facility] Diltiazem HCl (Cardizem Cd) 120 mg PO DAILY [facility] Guaifenesin (Robitussin) 100 mg PO Q4H PRN PRN Reason: Cough Last Admin: 06/24/18 12:34 Dose: 100 mg Folic Acid 1 mg/ Sodium (Chloride) 100.2 mls @ 60 mls/hr IV DAILY [facility] Last Admin: 06/24/18 12:37 Dose: Not Given Insulin Human Isoph/Insulin Regular (Novolin 70/30 (70/30 Units/Ml) 10 Ml) 0 units SC ACHS [facility]; Protocol Last Admin: 06/24/18 11:30 Dose: Not Given Lorazepam (Ativan) 1 mg IVP Q6H PRN PRN Reason: Anxiety Last Admin: 06/24/18 04:59 Dose: 1 mg Montelukast Sodium (Singulair) 10 mg PO HS [facility] Last Admin: 06/23/18 21:40 Dose: 10 mg Ondansetron HCl (Zofran Inj) 4 mg IVP Q6 PRN PRN Reason: Nausea/Vomiting Prednisone (Prednisone Tab) 20 mg PO DAILY [facility] Rifaximin (Xifaxan) 550 mg PO BID [facility]; Protocol Last Admin: 06/24/18 09:05 Dose: 550 mg Thiamine HCl (Vitamin B1 Inj) 200 mg IV Q8H [facility] Stop: 06/26/18 00:46 Last Admin: 06/24/18 09:03 Dose: 200 mg - Labs Labs: 06/24/18 05:54 06/24/18 05:54 PT 11.6 SECONDS (9.7-12.2) 06/23/18 05:40 INR 1.1 06/23/18 05:40 APTT 29.0 SECONDS (21-34) 06/23/18 05:40 - Constitutional Appears: Well - Head Exam Head Exam: ATRAUMATIC, NORMAL INSPECTION, NORMOCEPHALIC - Eye Exam Eye Exam: EOMI, Normal appearance, PERRL Pupil Exam: NORMAL ACCOMODATION, PERRL - ENT Exam ENT Exam: Mucous Membranes Moist, Normal Exam - Neck Exam Neck Exam: Full ROM, Normal Inspection. absent: Lymphadenopathy - Respiratory Exam Respiratory Exam: Decreased Breath Sounds - Cardiovascular Exam Cardiovascular Exam: REGULAR RHYTHM, +S1, +S2 - GI/Abdominal Exam GI & Abdominal Exam: Soft, Diminished Bowel Sounds - Rectal Exam Rectal Exam: Deferred - Neurological Exam Neurological Exam: Oriented x3 Assessment and Plan - Assessment and Plan (Free Text) Plan: plan discussed with patient and family moderate complexity of care medications reviewed ativan shelley quintero dd duoneb eliquis folic acid novolin prednisone tab robitussin singulair vitamin b1 xifaxan zofran inj labs reviewed vitals /[id number] a/a/ox3 encouraged pt to sit oob to cardiac chair able o stand with steady walk BRP TOLERATING WELL 0900AM POTASSIUM SUPPLEMENT TOLERATED BY PT K LEVEL 2.8lasixhold pt wants ot sign ama and understand consequence or further risk as per nurses notes
[2018-06-24 16:27] VITALS: BP 120/70; PULSE 104; RESP 16; TEMP 98.4
[2018-06-24] MEDS ORDERED: Arformoterol 15 mcg/2 ml Inh Sol INH SCH (22:00)
== END 2018-06-24 15:35 | disposition left against medical advice (07) | DRG 541 ==
LOC: C.ER 00:03 → C.9E 06:22 → C.9I 06:52
PROVIDERS: ADMIT Internal Medicine Nephrology; ATTEND Internal Medicine Nephrology
PROC: 5A09357 Assistance with Respiratory Ventilation, Less than 24 Consecutive Hours, Continuous Positive Airway Pressure (ICD-10-PCS; principal; 2018-06-23)
DX: J43.9 Emphysema, unspecified (principal); J96.00 Acute respiratory failure, unspecified whether with hypoxia or hypercapnia; I50.22 Chronic systolic (congestive) heart failure; F10.239 Alcohol dependence with withdrawal, unspecified; I11.0 Hypertensive heart disease with heart failure; F10.229 Alcohol dependence with intoxication, unspecified; E11.9 Type 2 diabetes mellitus without complications; I25.10 Atherosclerotic heart disease of native coronary artery without angina pectoris; I48.91 Unspecified atrial fibrillation; E78.00 Pure hypercholesterolemia, unspecified; F17.210 Nicotine dependence, cigarettes, uncomplicated; Z91.14 Patient's other noncompliance with medication regimen; Z95.810 Presence of automatic (implantable) cardiac defibrillator; Z95.1 Presence of aortocoronary bypass graft; Z95.5 Presence of coronary angioplasty implant and graft; Z79.01 Long term (current) use of anticoagulants; Z79.899 Other long term (current) drug therapy; Z87.01 Personal history of pneumonia (recurrent); Z79.84 Long term (current) use of oral hypoglycemic drugs

== ENCOUNTER 2018-06-29 00:31 | Inpatient (IN) | payer OTHER ==
[2018-06-29 00:46] VITALS: BMI 28.3
[2018-06-29] MEDS ORDERED: Albuterol-Ipratrop 3 mg / 0.5 (3 ml) UD ONE ×2 (00:53→01:05)
[2018-06-29] MEDS ORDERED: Magnesium Sulfate 1 gm in D5W 1 GM/100 ML BAG IVPB ONE ×3 (00:56→01:24)
[2018-06-29] MEDS ORDERED: Sodium Chloride 0.9% 1,000 ML IV ONE (01:02)
[2018-06-29] MEDS ORDERED: Albuterol-Ipratrop 3 mg / 0.5 (3 ml) UD INH STA ×4 (01:02→17:53)
[2018-06-29 01:26] LABS: BASO # 0.1 K/uL (0.0-0.2); EOS # 0.1 K/uL (0.0-0.7); EOS % 0.9 % (0.0-4.0); HEMOGLOBIN 9.6 g/dL (12.0-18.0); LYMPH % 32.1 % (20.0-40.0); MEAN CELL VOLUME 83.9 fL (80.0-94.0); MEAN CORPUSCULAR HEMOGLOBIN 26.7 pg (27.0-31.0); MEAN CORPUSCULAR HGB CONC 31.8 g/dL (33.0-37.0); MEAN PLATELET VOLUME 8.7 fL (7.2-11.7); MONO # 0.7 K/uL (0.0-0.8); MONO % 11.5 % (0.0-10.0); NEUT # 3.4 K/uL (1.8-7.0); NEUT % 54.5 % (50.0-75.0); NRBC % 0.8 % (0.0-2.0); RBC 3.6 Mil/uL (4.40-5.90); RED CELL DISTRIBUTION WIDTH 17.5 % (11.5-14.5); WHITE BLOOD COUNT 6.2 K/uL (4.8-10.8)
[2018-06-29 01:28] LABS: ALB/GLOB RATIO 1.1 (1.0-2.1); ALBUMIN 4.2 g/dL (3.5-5.0); ALT/SGPT 174 U/L (21-72); AST/SGOT 232 U/L (17-59); BLOOD UREA NITROGEN 4 mg/dL (9-20); CALCIUM 8.5 mg/dl (8.6-10.4); GFR NON-AFRICAN AMERICAN > 60
--- NOTE | 2018-06-29 01:39 | C.PDOC ---
History Of Present Illness 57 year old male with Hx of COPD presents to the ER markedly SOB with some chest discomfort. Denies fever. Chief Complaint (Nursing): Shortness Of Breath History Per: Patient History/Exam Limitations: no limitations Onset/Duration Of Symptoms: Hrs Current Symptoms Are (Timing): Still Present Current Respiratory Medications: See Home Med List Associated Symptoms: denies: Fever Recent travel outside of the [place]: No Past Medical History Reviewed: Historical Data, Nursing Documentation, Vital Signs Vital Signs: Last Vital Signs Temp 98.2 F 06/29/18 00:46 Pulse 110 H 06/29/18 01:33 Resp 24 06/29/18 00:46 BP 144/85 06/29/18 00:46 Pulse Ox 90 L 06/29/18 00:46 Primary Care Provider: FAMILY PROVIDER,NO - Medical History PMH: Asthma, Atrial Fibrillation, Back Problems, Cardia Arrhythmia, CHF, COPD, Depression, Emphysema, HTN, Hypercholesterolemia, Pneumonia, Seizures Denies: Chronic Kidney Disease Surgical History: CABG (double), Coronary Stent (4), Pacemaker - [facility] ASSISTANCE WITH RESPIRATORY VENTILATION, 24-96 HRS, CPAP (04/24/18) ASSISTANCE WITH RESPIRATORY VENTILATION, <24 HRS, CPAP (06/23/18) CORONAR ARTERIOGR-2 CATH (06/24/14) CORONARY ARTERY STENT INSERTION [id number] (06/24/14) DETOXIFICATION SERVICES FOR SUBSTANCE ABUSE TREATMENT (08/12/17) INFLUENZA VACCINATION (04/25/14) INSERTION OF ONE VASCULAR STENT (06/24/14) INTRODUCE OF OTH THERAP SUBST INTO RESP TRACT, VIA OPENING (06/19/15) INTRODUCTION OF SERUM/TOX/VACCINE INTO MUSCLE, PERC APPROACH (01/05/16) LEFT HEART CARDIAC CATH (06/24/14) NEBULIZER THERAPY (07/12/14) PERCUTANEOUS TRANSLUMINAL CORONARY ANGIOPLASTY [PTCA] (06/24/14) PROCEDURE ON SINGLE VESSEL (06/24/14) VACCINATION NEC (04/25/14) Family History: States: Diabetes - Social History Hx Tobacco Use: Yes Hx Alcohol Use: Yes Hx Substance Use: No (denied) - Immunization History Hx Tetanus Toxoid Vaccination: No Hx Influenza Vaccination: No Hx Pneumococcal Vaccination: No Review Of Systems Constitutional: Negative for: Fever Cardiovascular: Negative for: Chest Pain, Palpitations Respiratory: Positive for: Shortness of Breath Gastrointestinal: Negative for: Nausea, Vomiting Neurological: Negative for: Weakness, Numbness Physical Exam - Physical Exam Appears: Non-toxic Skin: Normal Color, Warm Head: Atraumatic, Normacephalic Eye(s): bilateral: Normal Inspection Oral Mucosa: Moist Neck: Normal, Supple Chest: Symmetrical, No Tenderness Cardiovascular: Rhythm Regular (Tachycardic), No Murmur Respiratory: No Rales, Rhonchi (Bilateral), Wheezing (Bilateral inspiratory and expiratory) Gastrointestinal/Abdominal: Soft, No Tenderness Neurological/Psych: Oriented x3, Normal Speech ED Course And Treatment - Laboratory Results Result Diagrams: 06/29/18 01:11 06/29/18 01:11 Lab Results: Troponin I 0.0250 ng/mL (0.00-0.120) 06/29/18 01:11 Total Bilirubin 0.8 mg/dL (0.2-1.3) 06/29/18 01:11 AST 232 U/L (17-59) H D 06/29/18 01:11 ALT 174 U/L (21-72) H D 06/29/18 01:11 Alkaline Phosphatase 345 U/L (38-126) H D 06/29/18 01:11 Total Protein 8.1 g/dL (6.3-8.3) 06/29/18 01:11 Albumin 4.2 g/dL (3.5-5.0) 06/29/18 01:11 Globulin 3.9 gm/dL (2.2-3.9) 06/29/18 01:11 Albumin/Globulin Ratio 1.1 (1.0-2.1) 06/29/18 01:11 ECG: Interpreted By Me, Viewed By Me ECG Rhythm: Sinus Rhythm, ST/T Changes ECG Interpretation: No Acute Changes, Abnormal Interpretation Of ECG: NSR,prolonged QT interval, ST-T changes, abnormal tracings.no significant change from old tracings of 06/23/2018 Rate From EC O2 Sat by Pulse Oximetry: 90 Pulse Ox Interpretation: Abnormal - Radiology CXR: Interpreted by Me, Viewed By Me CXR Interpretation: Yes: Cardiomegaly, Other (pulm. congestion- CHF.) Progress Note: Blood work, EKG, CTA, and CXR ordered. IV fluids, solumedrol, lasix, mag sulfate, and duoneb administered. Disposition Discussed With : Quinten Lema Doctor Will See Patient In The: Hospital Counseled Patient/Family Regarding: Diagnosis - Disposition Disposition: HOSPITALIZED Disposition Time: 02:50 Condition: STABLE Forms: [facility] (Gabonese) - POA Present On Arrival: None - Clinical Impression Clinical Impression: COPD exacerbation, Alcohol abuse, Dyspnea, CHF (congestive heart failure) - Scribe Statement The provider has reviewed the documentation as recorded by the Scribshahana Aviles All medical record entries made by the Scribe were at my direction and persona lly dictated by me. I have reviewed the chart and agree that the record accurately reflects my personal performance of the history, physical exam, medical decision making, and the department course for this patient. I have also personally directed, reviewed, and agree with the discharge instructions and disposition.
[2018-06-29 01:43] LABS: ARTERIAL BLOOD GAS HCO3 27.6 mmol/L (21-28); ARTERIAL BLOOD GAS HEMOGLOBIN 9.9 g/dL (11.7-17.4); ARTERIAL BLOOD GAS O2 SAT 99.6 % (95-98); ARTERIAL BLOOD GAS PCO2 56 mm/Hg (35-45); ARTERIAL BLOOD GAS PH 7.34 (7.35-7.45); ARTERIAL BLOOD GAS PO2 166 mm/Hg (80-100); ARTERIAL BLOOD GAS TCO2 31.9 mmol/L (22-28)
[2018-06-29 01:48] LABS: PROTHROMBIN TIME 10.9 SECONDS (9.7-12.2)
[2018-06-29] MEDS ORDERED: Iodixanol 320 MG/ML 100 ML BOTTLE IV ONE (02:03)
[2018-06-29 02:06] LABS: B-TYPE NATRIURETIC PEPTIDE 993 pg/mL (0-900)
[2018-06-29 02:23] LABS: BARBITURATES, UR NEGATIVE (NEGATIVE); BENZODIAZEPINES, UR NEGATIVE (NEGATIVE); OPIATES, UR NEGATIVE (NEGATIVE); PHENCYCLIDINE, UR NEGATIVE (NEGATIVE)
[2018-06-29] MEDS: Azithromycin 500mg/250ML NS 500 MG/250 ML BAG IVPB SCH (04:57)
[2018-06-29] MEDS: MethylPREDNISolone 40 mg Vial IVP SCH ×3 (06:19→22:09)
--- NOTE | 2018-06-29 07:33 | RAD ---
Date of service: 06/29/2018 PROCEDURE: CHEST RADIOGRAPH, 1 VIEW HISTORY: SOB COMPARISON: 06/24/2018 FINDINGS: LUNGS: Lung volumes lower limits of normal. Perceived increase opacity left lung base attributed to summation of soft tissues. No dense consolidation. PLEURA: No pneumothorax or pleural fluid seen. CARDIOVASCULAR: No aortic atherosclerotic calcification present. Cardiomegaly. Concomitant mild pulmonary venous congestion OSSEOUS STRUCTURES: Midline sternotomy. Thoracic spondylosis. Bilateral shoulder arthrosis VISUALIZED UPPER ABDOMEN: Normal. OTHER FINDINGS: Single lead pacemaker device in place. IMPRESSION: Similar cardiomegaly. Pulmonary venous congestion
[2018-06-29] MEDS: Albuterol-Ipratrop 3 mg / 0.5 (3 ml) UD INH SCH ×2 (08:10→13:39)
[2018-06-29] MEDS ORDERED: Enoxaparin 100 mg Syringe SC SCH ×3 (10:00→11:15)
[2018-06-29] MEDS: Pantoprazole 40 mg EC Tab PO SCH (12:37)
[2018-06-29] MEDS: cefTRIAXone IV 1 gm in Dextros 50 ML IVPB SCH (12:39)
[2018-06-29] MEDS: Enoxaparin 80 mg Syringe SC SCH ×2 (12:48→22:00)
--- NOTE | 2018-06-29 13:42 | NM ---
Date of service: 06/29/2018 COMPARISON: June 29, 2018. Single-view chest TECHNIQUE: 9.0 mCi technetium 99-m Xe-133 Gas. 3.0 mCI technetium 99-m MAA administered intravenously. FINDINGS: VENTILATION COMPONENT: Heterogeneous ventilation consistent with findings of pulmonary vascular congestion recent chest x-ray. PERFUSION COMPONENT: Heterogeneous distribution of radionuclide. No geographic, segmental, lobar abnormalities apparent on the present examination. Incidental finding(s): Photon deficient area related to pacemaker battery component. IMPRESSION: Low probability ventilation perfusion scan for pulmonary embolism.
--- NOTE | 2018-06-29 16:55 | CARD ---
APPROVED REPORT Date of service: 06/29/2018 EKG Measurement Heart [id number] <Conclusion> Normal sinus rhythm T wave abnormality, consider inferior ischemia Prolonged QT Abnormal ECG
[2018-06-29] MEDS: Tramadol 25 mg PO PRN (18:16)
--- NOTE | 2018-06-29 18:47 | CP.PCM.HP ---
Past Patient History - Infectious Disease Hx of Infectious Diseases: None - Tetanus Immunizations Tetanus Immunization: Unknown - Past Medical History & Family History Past Medical History?: Yes - Past Social History Smoking Status: Heavy Smoker > 10 Cigarettes Daily - CARDIAC Hx Atrial Fibrillation: Yes Hx Cardia Arrhythmia: Yes Hx Congestive Heart Failure: Yes Hx Hypercholesterolemia: Yes Hx Hypertension: Yes Hx Pacemaker: Yes - PULMONARY Hx Asthma: Yes Hx Chronic Obstructive Pulmonary Disease (COPD): Yes Hx Emphysema: Yes Hx Pneumonia: Yes - NEUROLOGICAL Hx Seizures: Yes - HEENT Hx HEENT Problems: No - RENAL Hx Chronic Kidney Disease: No - ENDOCRINE/METABOLIC Hx Endocrine Disorders: No Hx Diabetes Mellitus Type 2: No - HEMATOLOGICAL/ONCOLOGICAL Hx Blood Disorders: Yes - INTEGUMENTARY Hx Dermatological Problems: No - MUSCULOSKELETAL/RHEUMATOLOGICAL Hx Falls: No - GASTROINTESTINAL Hx Gastrointestinal Disorders: No - GENITOURINARY/GYNECOLOGICAL Hx Genitourinary Disorders: No - PSYCHIATRIC Hx Depression: Yes Hx Substance Use: No (denied) - SURGICAL HISTORY Hx Coronary Artery Bypass Graft: Yes (double) Hx Coronary Stent: Yes (4) - ANESTHESIA Hx Anesthesia: Yes (denied) Hx Anesthesia Reactions: No Hx Malignant Hyperthermia: No Meds Allergies/Adverse Reactions: Allergies Allergy/AdvReac Type Severity Reaction Status Date / Time No Known Allergies Allergy Verified 06/29/18 00:44 Physical Exam - Constitutional Appears: Well - Head Exam Head Exam: ATRAUMATIC, NORMAL INSPECTION, NORMOCEPHALIC - Eye Exam Eye Exam: EOMI, Normal appearance, PERRL Pupil Exam: NORMAL ACCOMODATION, PERRL - ENT Exam ENT Exam: Mucous Membranes Moist, Normal Exam - Neck Exam Neck exam: Positive for: Normal Inspection - Respiratory Exam Respiratory Exam: Decreased Breath Sounds - Cardiovascular Exam Cardiovascular Exam: REGULAR RHYTHM, +S1, +S2 - GI/Abdominal Exam GI & Abdominal Exam: Diminished Bowel Sounds, Soft - Rectal Exam Rectal Exam: Deferred - Neurological Exam Neurological exam: Oriented x3 Results - Vital Signs Recent Vital Signs: Last Vital Signs Temp 98.1 F 06/29/18 15:00 Pulse 117 H 06/29/18 16:11 Resp 20 06/29/18 15:00 BP 130/76 06/29/18 15:00 Pulse Ox 96 06/29/18 16:11 - Labs Result Diagrams: 06/29/18 01:11 06/29/18 01:11 Labs: Laboratory Results - last 24 hr 06/29/18 06/29/18 06/29/18 00:41 01:01 01:11 WBC 6.2 RBC 3.60 L Hgb 9.6 L Hct 30.2 L MCV 83.9 MCH 26.7 L MCHC 31.8 L RDW 17.5 H Plt Count 359 MPV 8.7 Neut % (Auto) 54.5 Lymph % (Auto) 32.1 [place] % (Auto) 11.5 H Eos % (Auto) 0.9 Baso % (Auto) 1.0 Neut # (Auto) 3.4 Lymph # (Auto) 2.0 [place] # (Auto) 0.7 Eos # (Auto) 0.1 Baso # (Auto) 0.1 PT INR APTT D-Dimer, Quantitative Puncture Site pCO2 pO2 HCO3 ABG pH ABG Total CO2 ABG O2 Saturation ABG Base Excess ABG Hemoglobin ABG Carboxyhemoglobin POC ABG HHb (Measured) ABG Methemoglobin Yonatan Test A-a O2 Difference Respiratory Index Hgb O2 Saturation Mechanical Rate FiO2 Inspiratory BiPAP Expiratory BiPAP Sodium Potassium Chloride Carbon Dioxide Anion Gap BUN Creatinine Est GFR ( Amer) Est GFR (Non-Af Amer) POC Glucose (mg/dL) 143 H Random Glucose Calcium Total Bilirubin AST ALT Alkaline Phosphatase Troponin I NT-Pro-B Natriuret Pep Total Protein Albumin Globulin Albumin/Globulin Ratio Urine Opiates Screen Negative Urine Methadone Screen Negative Ur Barbiturates Screen Negative Ur Phencyclidine Scrn Negative Ur Amphetamines Screen Negative U Benzodiazepines Scrn Negative U Oth Cocaine Metabols Negative U Cannabinoids Screen Positive H 06/29/18 06/29/18 06/29/18 01:11 01:17 01:40 WBC RBC Hgb Hct MCV MCH MCHC RDW Plt Count MPV Neut % (Auto) Lymph % (Auto) [place] % (Auto) Eos % (Auto) Baso % (Auto) Neut # (Auto) Lymph # (Auto) [place] # (Auto) Eos # (Auto) Baso # (Auto) PT 10.9 INR 1.0 APTT 29.0 D-Dimer, Quantitative 605 H Puncture Site Rra pCO2 56 H pO2 166 H HCO3 27.6 ABG pH 7.34 L ABG Total CO2 31.9 H ABG O2 Saturation 99.6 H ABG Base Excess 3.5 H ABG Hemoglobin 9.9 L ABG Carboxyhemoglobin 3.9 H POC ABG HHb (Measured) 0.4 ABG Methemoglobin 1.6 [place]onatan Test Na A-a O2 Difference 49.0 Respiratory Index 0.3 Hgb O2 Saturation 94.2 L Mechanical Rate 14 FiO2 40.0 Inspiratory BiPAP 14 Expiratory BiPAP 7 Sodium 137 Potassium 4.9 Chloride 97 L Carbon Dioxide 25 Anion Gap 20 BUN 4 L Creatinine 0.6 L Est GFR ( Amer) > 60 Est GFR (Non-Af Amer) > 60 POC Glucose (mg/dL) Random Glucose 126 H Calcium 8.5 L Total Bilirubin 0.8 AST 232 H D ALT 174 H D Alkaline Phosphatase 345 H D Troponin I 0.0250 NT-Pro-B Natriuret Pep 993 H Total Protein 8.1 Albumin 4.2 Globulin 3.9 Albumin/Globulin Ratio 1.1 Urine Opiates Screen Urine Methadone Screen Ur Barbiturates Screen Ur Phencyclidine Scrn Ur Amphetamines Screen U Benzodiazepines Scrn U Oth Cocaine Metabols U Cannabinoids Screen
[2018-06-30] MEDS: Albuterol-Ipratrop 3 mg / 0.5 (3 ml) UD INH SCH ×5 (01:48→19:35)
[2018-06-30] MEDS: Azithromycin 500mg/250ML NS 500 MG/250 ML BAG IVPB SCH (04:55)
[2018-06-30] MEDS: MethylPREDNISolone 40 mg Vial IVP SCH ×3 (05:01→22:28)
[2018-06-30] MEDS: Pantoprazole 40 mg EC Tab PO SCH (10:42)
[2018-06-30] MEDS: Tramadol 25 mg PO PRN (10:42)
[2018-06-30] MEDS: cefTRIAXone IV 1 gm in Dextros 50 ML IVPB SCH (10:43)
[2018-06-30] MEDS: Enoxaparin 80 mg Syringe SC SCH ×2 (10:43→11:02)
[2018-06-30] MEDS: Digoxin 250 mcg (0.25 mg) Tab PO SCH (18:11)
--- NOTE | 2018-06-30 19:58 | CP.PCM.PN ---
Subjective - Date & Time of Evaluation Date of Evaluation: 06/30/18 - Subjective Subjective: patient examined today no nausea no vomiting no dizziness no diarrhea no shortness of breath no fever Objective - Vital Signs/Intake and Output Vital Signs (last 24 hours): Temp Pulse Resp BP Pulse Ox 98.5 F 120 H 18 121/77 100 06/30/18 15:00 06/30/18 15:06 06/30/18 15:00 06/30/18 15:00 06/30/18 15:00 - Medications Medications: Current Medications Albuterol/Ipratropium (Duoneb 3 Mg/0.5 Mg (3 Ml) Ud) 3 ml INH RQ6 [facility] Last Admin: 06/30/18 19:35 Dose: 3 ml Apixaban (Eliquis) 5 mg PO BID [facility] Last Admin: 06/30/18 18:11 Dose: 5 mg Aspirin (Aspirin Chewable) 81 mg PO DAILY [facility] Carvedilol (Coreg) 6.25 mg PO BID [facility] Last Admin: 06/30/18 18:11 Dose: 6.25 mg Digoxin (Lanoxin) 0.25 mg PO DAILY@1800 [facility] Last Admin: 06/30/18 18:11 Dose: 0.25 mg Folic Acid (Folic Acid) 1 mg PO DAILY [facility] Furosemide (Lasix) 40 mg IVP DAILY [facility] Last Admin: 06/30/18 10:42 Dose: 40 mg Glimepiride (Amaryl) 2 mg PO DAILY [facility] Ceftriaxone Sodium (Rocephin Iv 1 Gm Duplex) 50 mls @ 100 mls/hr IVPB DAILY [facility]; Protocol Last Admin: 06/30/18 10:43 Dose: 100 mls/hr Azithromycin (Zithromax 500mg In Ns Addvantage) 500 mg in 250 mls @ 167 mls/hr IVPB Q24H [facility]; Protocol Last Admin: 06/30/18 04:55 Dose: 167 mls/hr Levetiracetam (Keppra) 1,000 mg PO BID [facility] Last Admin: 06/30/18 18:11 Dose: 1,000 mg Methylprednisolone (Solu-Medrol) 40 mg IVP Q8 [facility] Last Admin: 06/30/18 05:01 Dose: 40 mg Montelukast Sodium (Singulair) 10 mg PO DAILY [facility] Last Admin: 05/10/19 10:42 Dose: 10 mg Pantoprazole Sodium (Protonix Ec Tab) 40 mg PO DAILY [facility] Last Admin: 06/30/18 10:42 Dose: 40 mg Spironolactone (Aldactone) 25 mg PO BID [facility] Last Admin: 06/30/18 18:11 Dose: 25 mg Tamsulosin HCl (Flomax) 0.4 mg PO DAILY [facility] Thiamine HCl (Vitamin B1 Tab) 100 mg PO DAILY [facility] Tramadol HCl (Ultram) 25 mg PO TID PRN PRN Reason: back pain Last Admin: 06/30/18 10:42 Dose: 25 mg - Labs Labs: 06/29/18 01:11 06/29/18 01:11 PT 10.9 SECONDS (9.7-12.2) 06/29/18 01:17 INR 1.0 06/29/18 01:17 APTT 29.0 SECONDS (21-34) 06/29/18 01:17 - Constitutional Appears: Well - Head Exam Head Exam: ATRAUMATIC, NORMAL INSPECTION, NORMOCEPHALIC - Eye Exam Eye Exam: EOMI, Normal appearance, PERRL Pupil Exam: NORMAL ACCOMODATION, PERRL - ENT Exam ENT Exam: Mucous Membranes Moist, Normal Exam - Neck Exam Neck Exam: Full ROM, Normal Inspection. absent: Lymphadenopathy - Respiratory Exam Respiratory Exam: Decreased Breath Sounds - Cardiovascular Exam Cardiovascular Exam: REGULAR RHYTHM, +S1, +S2 - GI/Abdominal Exam GI & Abdominal Exam: Soft, Diminished Bowel Sounds - Rectal Exam Rectal Exam: Deferred - Neurological Exam Neurological Exam: Oriented x3 Assessment and Plan - Assessment and Plan (Free Text) Plan: plan discussed with patient and family moderate complexity of care medications reviewed labs reviewed vitals reviewed aldactone amaryl aspirin chewable coreg duoneb eliquis flomax folic acid keppra lanoxin lasix protonix ec tab rocephin iv singulair solu-medrol ultram zithromax vit b1
[2018-06-30] MEDS ORDERED: guaiFENesin DM 200 mg-20 mg/10 ml UD PO ONE (22:45)
[2018-07-01] MEDS: Albuterol-Ipratrop 3 mg / 0.5 (3 ml) UD INH SCH ×4 (02:23→20:01)
[2018-07-01] MEDS: MethylPREDNISolone 40 mg Vial IVP SCH ×3 (05:31→21:53)
[2018-07-01] MEDS: Azithromycin 500mg/250ML NS 500 MG/250 ML BAG IVPB SCH ×2 (05:32→11:43)
[2018-07-01] MEDS: Pantoprazole 40 mg EC Tab PO SCH (09:44)
[2018-07-01] MEDS: cefTRIAXone IV 1 gm in Dextros 50 ML IVPB SCH (11:43)
[2018-07-01] MEDS: Tramadol 25 mg PO PRN ×2 (11:51→23:29)
--- NOTE | 2018-07-01 15:50 | CP.PCM.PN ---
Subjective - Date & Time of Evaluation Date of Evaluation: 07/01/18 - Subjective Subjective: patient examined today no nausea no vomitnig no dizziness no diarrhea no shortness of breath no fever Objective - Vital Signs/Intake and Output Vital Signs (last 24 hours): Temp Pulse Resp BP Pulse Ox 97.8 F 96 H 18 154/76 H 100 07/01/18 07:00 07/01/18 09:02 07/01/18 07:00 07/01/18 09:45 07/01/18 07:00 Intake and Output: 07/01/18 07/01/18 06:59 18:59 Intake Total 550 900 Output Total 1050 600 Balance -500 300 - Medications Medications: Current Medications Albuterol/Ipratropium (Duoneb 3 Mg/0.5 Mg (3 Ml) Ud) 3 ml INH RQ6 [facility] Last Admin: 07/01/18 10:49 Dose: 3 ml Apixaban (Eliquis) 5 mg PO BID [facility] Last Admin: 07/01/18 09:45 Dose: 5 mg Aspirin (Aspirin Chewable) 81 mg PO DAILY [facility] Last Admin: 07/01/18 09:45 Dose: 81 mg Carvedilol (Coreg) 6.25 mg PO BID [facility] Last Admin: 07/01/18 09:44 Dose: 6.25 mg Digoxin (Lanoxin) 0.25 mg PO DAILY@1800 [facility] Last Admin: 06/30/18 18:11 Dose: 0.25 mg Folic Acid (Folic Acid) 1 mg PO DAILY [facility] Last Admin: 07/01/18 09:44 Dose: 1 mg Furosemide (Lasix) 40 mg IVP DAILY [facility] Last Admin: 07/01/18 09:45 Dose: 40 mg Glimepiride (Amaryl) 2 mg PO DAILY [facility] Last Admin: 07/01/18 09:44 Dose: 2 mg Ceftriaxone Sodium (Rocephin Iv 1 Gm Duplex) 50 mls @ 100 mls/hr IVPB DAILY [facility]; Protocol Last Admin: 07/01/18 11:43 Dose: 100 mls/hr Azithromycin (Zithromax 500mg In Ns Addvantage) 500 mg in 250 mls @ 167 mls/hr IVPB Q24H [facility]; Protocol Last Admin: 07/01/18 11:43 Dose: 167 mls/hr Levetiracetam (Keppra) 1,000 mg PO BID [facility] Last Admin: 07/01/18 09:44 Dose: 1,000 mg Methylprednisolone (Solu-Medrol) 40 mg IVP Q8 [facility] Last Admin: 07/01/18 14:50 Dose: 40 mg Montelukast Sodium (Singulair) 10 mg PO DAILY [facility] Last Admin: 07/01/18 09:44 Dose: 10 mg Pantoprazole Sodium (Protonix Ec Tab) 40 mg PO DAILY [facility] Last Admin: 07/01/18 09:44 Dose: 40 mg Spironolactone (Aldactone) 25 mg PO BID [facility] Last Admin: 07/01/18 09:45 Dose: 25 mg Tamsulosin HCl (Flomax) 0.4 mg PO DAILY [facility] Last Admin: 07/01/18 09:47 Dose: 0.4 mg Thiamine HCl (Vitamin B1 Tab) 100 mg PO DAILY [facility] Last Admin: 07/01/18 09:44 Dose: 100 mg Tramadol HCl (Ultram) 25 mg PO TID PRN PRN Reason: back pain Last Admin: 07/01/18 11:51 Dose: 25 mg - Labs Labs: 06/29/18 01:11 06/29/18 01:11 PT 10.9 SECONDS (9.7-12.2) 06/29/18 01:17 INR 1.0 06/29/18 01:17 APTT 29.0 SECONDS (21-34) 06/29/18 01:17 - Constitutional Appears: Well - Head Exam Head Exam: ATRAUMATIC, NORMAL INSPECTION, NORMOCEPHALIC - Eye Exam Eye Exam: EOMI, Normal appearance, PERRL Pupil Exam: NORMAL ACCOMODATION, PERRL - ENT Exam ENT Exam: Mucous Membranes Moist, Normal Exam - Neck Exam Neck Exam: Full ROM, Normal Inspection. absent: Lymphadenopathy - Respiratory Exam Respiratory Exam: Decreased Breath Sounds - Cardiovascular Exam Cardiovascular Exam: REGULAR RHYTHM, +S1, +S2 - GI/Abdominal Exam GI & Abdominal Exam: Soft, Diminished Bowel Sounds - Rectal Exam Rectal Exam: Deferred - Neurological Exam Neurological Exam: Oriented x3 Assessment and Plan - Assessment and Plan (Free Text) Plan: aldactone amaryl aspirin chewable coreg duoneb eliquis flomax folic acid keppra lanoxin lasix protonix ec tab rocephin iv singulair solu-medrol ultram zithromax vit b1 plan discussed with patient moderate complexity of care medications reviewed labs reviewed vitals reviewed
[2018-07-01 16:05] VITALS: RESP 20
[2018-07-01] MEDS: Digoxin 250 mcg (0.25 mg) Tab PO SCH (17:37)
[2018-07-01] MEDS: guaiFENesin DM 200 mg-20 mg/10 ml UD PO PRN (17:38)
[2018-07-02] MEDS: Albuterol-Ipratrop 3 mg / 0.5 (3 ml) UD INH SCH ×3 (02:32→19:18)
[2018-07-02] MEDS: Azithromycin 500mg/250ML NS 500 MG/250 ML BAG IVPB SCH (05:13)
[2018-07-02] MEDS: MethylPREDNISolone 40 mg Vial IVP SCH ×3 (05:14→22:07)
[2018-07-02 08:24] VITALS: TEMP 97.6; O2SAT 98
[2018-07-02] MEDS: Tramadol 25 mg PO PRN ×3 (09:49→22:07)
[2018-07-02] MEDS: Pantoprazole 40 mg EC Tab PO SCH (09:49)
[2018-07-02] MEDS: cefTRIAXone IV 1 gm in Dextros 50 ML IVPB SCH (09:52)
--- NOTE | 2018-07-02 14:49 | CP.PCM.PN ---
Subjective - Date & Time of Evaluation Date of Evaluation: 07/02/18 - Subjective Subjective: patient examined today no nausea no vomiting no diarrhea no dizziness no fever no shortness of breath Objective - Vital Signs/Intake and Output Vital Signs (last 24 hours): Temp Pulse Resp BP Pulse Ox 97.6 F 91 H 20 135/76 98 07/02/18 07:00 07/02/18 07:30 07/02/18 07:00 07/02/18 09:51 07/02/18 07:00 - Medications Medications: Current Medications Albuterol/Ipratropium (Duoneb 3 Mg/0.5 Mg (3 Ml) Ud) 3 ml INH RQ6 [facility] Last Admin: 07/02/18 09:00 Dose: 3 ml Apixaban (Eliquis) 5 mg PO BID [facility] Last Admin: 07/02/18 09:49 Dose: 5 mg Aspirin (Aspirin Chewable) 81 mg PO DAILY [facility] Last Admin: 07/02/18 09:49 Dose: 81 mg Carvedilol (Coreg) 6.25 mg PO BID [facility] Last Admin: 07/02/18 09:50 Dose: 6.25 mg Digoxin (Lanoxin) 0.25 mg PO DAILY@1800 [facility] Last Admin: 07/01/18 17:37 Dose: 0.25 mg Folic Acid (Folic Acid) 1 mg PO DAILY [facility] Last Admin: 07/02/18 09:50 Dose: 1 mg Furosemide (Lasix) 40 mg IVP DAILY [facility] Last Admin: 07/02/18 09:51 Dose: 40 mg Glimepiride (Amaryl) 2 mg PO DAILY [facility] Last Admin: 07/02/18 09:50 Dose: 2 mg Guaifenesin/Dextromethorphan (Robitussin Dm) 10 ml PO Q6H PRN PRN Reason: Cough and congestion Last Admin: 07/01/18 17:38 Dose: 10 ml Levetiracetam (Keppra) 1,000 mg PO BID [facility] Last Admin: 07/02/18 09:51 Dose: 1,000 mg Methylprednisolone (Solu-Medrol) 40 mg IVP Q8 [facility] Last Admin: 07/02/18 13:01 Dose: 40 mg Montelukast Sodium (Singulair) 10 mg PO DAILY [facility] Last Admin: 07/02/18 09:50 Dose: 10 mg Pantoprazole Sodium (Protonix Ec Tab) 40 mg PO DAILY [facility] Last Admin: 07/02/18 09:49 Dose: 40 mg Spironolactone (Aldactone) 25 mg PO BID [facility] Last Admin: 07/02/18 09:52 Dose: 25 mg Tamsulosin HCl (Flomax) 0.4 mg PO DAILY [facility] Last Admin: 07/02/18 09:49 Dose: 0.4 mg Thiamine HCl (Vitamin B1 Tab) 100 mg PO DAILY [facility] Last Admin: 07/02/18 09:52 Dose: 100 mg Tramadol HCl (Ultram) 25 mg PO TID PRN PRN Reason: back pain Last Admin: 07/02/18 09:49 Dose: 25 mg - Labs Labs: 06/29/18 01:11 06/29/18 01:11 PT 10.9 SECONDS (9.7-12.2) 06/29/18 01:17 INR 1.0 06/29/18 01:17 APTT 29.0 SECONDS (21-34) 06/29/18 01:17 - Constitutional Appears: Well - Head Exam Head Exam: ATRAUMATIC, NORMAL INSPECTION, NORMOCEPHALIC - Eye Exam Eye Exam: EOMI, Normal appearance, PERRL Pupil Exam: NORMAL ACCOMODATION, PERRL - ENT Exam ENT Exam: Mucous Membranes Moist, Normal Exam - Neck Exam Neck Exam: Full ROM, Normal Inspection. absent: Lymphadenopathy - Respiratory Exam Respiratory Exam: Decreased Breath Sounds - Cardiovascular Exam Cardiovascular Exam: REGULAR RHYTHM, +S1, +S2 - GI/Abdominal Exam GI & Abdominal Exam: Soft, Diminished Bowel Sounds - Rectal Exam Rectal Exam: Deferred - Neurological Exam Neurological Exam: Oriented x3 Assessment and Plan - Assessment and Plan (Free Text) Plan: plan discussed with patient moderate complexity of care aldactone amaryl aspirin chewable coreg duoneb eliquis flomax folic acid keppra lanoxin lasix protonix ec tab robitussin dm singulair solu-medrol ultram vitamin b1 medications reviewed labs reviewed vitals reviewed
--- NOTE | 2018-07-02 18:29 | CON ---
DATE: 07/01/2018 HISTORY OF PRESENT ILLNESS: This is a 57-year-old male who presented to hospital with chief complaint of shortness of breath, cough, wheezing and fatigue. The patient has a history of COPD, is a smoker. PHYSICAL EXAMINATION: GENERAL: The patient is awake, alert, and oriented. Slightly obese. VITAL SIGNS: Temperature 98, pulse 90, blood pressure 150/75. HEENT: Within normal limits. NECK: Supple. CHEST: Symmetrical. Diminished air entry bilateral. HEART: Regular. ABDOMEN: Soft. EXTREMITIES: No edema ASSESSMENT AND PLAN: The patient has chronic obstructive pulmonary disease. Given IV antibiotics and bronchodilators, O2. Juanjose Burkett MD
[2018-07-02] MEDS: guaiFENesin DM 200 mg-20 mg/10 ml UD PO PRN (18:53)
[2018-07-02 18:54] VITALS: PULSE 86
[2018-07-02] MEDS: Digoxin 250 mcg (0.25 mg) Tab PO SCH (18:54)
[2018-07-03] MEDS: Albuterol-Ipratrop 3 mg / 0.5 (3 ml) UD INH SCH ×3 (01:26→13:59)
[2018-07-03] MEDS: MethylPREDNISolone 40 mg Vial IVP SCH ×2 (05:17→13:19)
--- NOTE | 2018-07-03 08:22 | CP.PCM.PN ---
Subjective - Date & Time of Evaluation Date of Evaluation: 07/03/18 Time of Evaluation: 08:22 Objective - Vital Signs/Intake and Output Vital Signs (last 24 hours): Temp Pulse Resp BP Pulse Ox 97.6 F 83 20 125/75 98 07/03/18 00:00 07/03/18 07:04 07/03/18 00:00 07/03/18 00:00 07/03/18 00:00 Intake and Output: 07/03/18 07/03/18 06:59 18:59 Output Total 400 Balance -400 - Medications Medications: Current Medications Albuterol/Ipratropium (Duoneb 3 Mg/0.5 Mg (3 Ml) Ud) 3 ml INH RQ6 [facility] Last Admin: 07/03/18 01:26 Dose: Not Given Apixaban (Eliquis) 5 mg PO BID [facility] Last Admin: 07/02/18 18:53 Dose: 5 mg Aspirin (Aspirin Chewable) 81 mg PO DAILY [facility] Last Admin: 07/02/18 09:49 Dose: 81 mg Carvedilol (Coreg) 6.25 mg PO BID [facility] Last Admin: 07/02/18 18:53 Dose: 6.25 mg Digoxin (Lanoxin) 0.25 mg PO DAILY@1800 [facility] Last Admin: 07/02/18 18:54 Dose: 0.25 mg Folic Acid (Folic Acid) 1 mg PO DAILY [facility] Last Admin: 07/02/18 09:50 Dose: 1 mg Furosemide (Lasix) 40 mg IVP DAILY [facility] Last Admin: 07/02/18 09:51 Dose: 40 mg Glimepiride (Amaryl) 2 mg PO DAILY [facility] Last Admin: 07/02/18 09:50 Dose: 2 mg Guaifenesin/Dextromethorphan (Robitussin Dm) 10 ml PO Q6H PRN PRN Reason: Cough and congestion Last Admin: 07/02/18 18:53 Dose: 10 ml Levetiracetam (Keppra) 1,000 mg PO BID [facility] Last Admin: 07/02/18 18:53 Dose: 1,000 mg Methylprednisolone (Solu-Medrol) 40 mg IVP Q8 [facility] Last Admin: 07/03/18 05:17 Dose: Not Given Montelukast Sodium (Singulair) 10 mg PO DAILY [facility] Last Admin: 07/02/18 09:50 Dose: 10 mg Pantoprazole Sodium (Protonix Ec Tab) 40 mg PO DAILY [facility] Last Admin: 07/02/18 09:49 Dose: 40 mg Spironolactone (Aldactone) 25 mg PO BID [facility] Last Admin: 07/02/18 18:54 Dose: 25 mg Tamsulosin HCl (Flomax) 0.4 mg PO DAILY [facility] Last Admin: 07/02/18 09:49 Dose: 0.4 mg Thiamine HCl (Vitamin B1 Tab) 100 mg PO DAILY [facility] Last Admin: 07/02/18 09:52 Dose: 100 mg Tramadol HCl (Ultram) 25 mg PO TID PRN PRN Reason: back pain Last Admin: 07/02/18 22:07 Dose: 25 mg - Labs Labs: 06/29/18 01:11 06/29/18 01:11 PT 10.9 SECONDS (9.7-12.2) 06/29/18 01:17 INR 1.0 06/29/18 01:17 APTT 29.0 SECONDS (21-34) 06/29/18 01:17
[2018-07-03 09:43] VITALS: BP 138/86
[2018-07-03] MEDS: Pantoprazole 40 mg EC Tab PO SCH (09:44)
[2018-07-03] MEDS: Tramadol 25 mg PO PRN (09:50)
[2018-07-03 12:15] VITALS: PULSE 90
[2018-07-03] MEDS ORDERED: Oxycodone/Acetaminophen 5/325 mg Tab PO ONE (14:00)
--- NOTE | 2018-07-03 14:43 | CP.PCM.PN ---
Subjective - Date & Time of Evaluation Date of Evaluation: 07/03/18 Time of Evaluation: 14:42 - Subjective Subjective: PATIENT SEEN AND EXAMINED AT THE BEDSIDE Objective - Vital Signs/Intake and Output Vital Signs (last 24 hours): Temp Pulse Resp BP Pulse Ox 97.6 F 90 20 138/86 98 07/03/18 00:00 07/03/18 12:10 07/03/18 00:00 07/03/18 09:44 07/03/18 00:00 Intake and Output: 07/03/18 07/03/18 06:59 18:59 Output Total 400 Balance -400 - Medications Medications: Current Medications Albuterol/Ipratropium (Duoneb 3 Mg/0.5 Mg (3 Ml) Ud) 3 ml INH RQ6 [facility] Last Admin: 07/03/18 13:59 Dose: 3 ml Apixaban (Eliquis) 5 mg PO BID [facility] Last Admin: 07/03/18 09:43 Dose: 5 mg Aspirin (Aspirin Chewable) 81 mg PO DAILY [facility] Last Admin: 07/03/18 09:43 Dose: 81 mg Carvedilol (Coreg) 6.25 mg PO BID [facility] Last Admin: 07/03/18 09:44 Dose: 6.25 mg Digoxin (Lanoxin) 0.25 mg PO DAILY@1800 [facility] Last Admin: 07/02/18 18:54 Dose: 0.25 mg Folic Acid (Folic Acid) 1 mg PO DAILY [facility] Last Admin: 07/03/18 09:43 Dose: 1 mg Furosemide (Lasix) 40 mg IVP DAILY [facility] Last Admin: 07/03/18 09:44 Dose: 40 mg Glimepiride (Amaryl) 2 mg PO DAILY [facility] Last Admin: 07/03/18 09:44 Dose: 2 mg Guaifenesin/Dextromethorphan (Robitussin Dm) 10 ml PO Q6H PRN PRN Reason: Cough and congestion Last Admin: 07/02/18 18:53 Dose: 10 ml Levetiracetam (Keppra) 1,000 mg PO BID [facility] Last Admin: 07/03/18 09:45 Dose: 1,000 mg Methylprednisolone (Solu-Medrol) 40 mg IVP Q8 [facility] Last Admin: 07/03/18 13:19 Dose: 40 mg Montelukast Sodium (Singulair) 10 mg PO DAILY [facility] Last Admin: 07/03/18 09:44 Dose: 10 mg Pantoprazole Sodium (Protonix Ec Tab) 40 mg PO DAILY [facility] Last Admin: 07/03/18 09:44 Dose: 40 mg Spironolactone (Aldactone) 25 mg PO BID [facility] Last Admin: 07/03/18 09:44 Dose: 25 mg Tamsulosin HCl (Flomax) 0.4 mg PO DAILY [facility] Last Admin: 07/03/18 09:43 Dose: 0.4 mg Thiamine HCl (Vitamin B1 Tab) 100 mg PO DAILY [facility] Last Admin: 07/03/18 09:43 Dose: 100 mg Tramadol HCl (Ultram) 25 mg PO TID PRN PRN Reason: back pain Last Admin: 07/03/18 09:50 Dose: 25 mg - Labs Labs: 06/29/18 01:11 06/29/18 01:11 PT 10.9 SECONDS (9.7-12.2) 06/29/18 01:17 INR 1.0 06/29/18 01:17 APTT 29.0 SECONDS (21-34) 06/29/18 01:17 Assessment and Plan - Assessment and Plan (Free Text) Assessment: FOLLOW UP WITH DR Debbie ROSADO IN HIS OFFICE FOLLOW UP WITH DR HENLEY IN HIS OFFICE CONTINUE HOME MEDICATION NEW PRESCRIPTION GIVEN VENTOLIN ACTIVITY TOLERATED CALL DR Debbie ROSADO OR GO TO EMERGENCY ROOM IF SYMPTOM RETURN OR WORSENING
--- NOTE | 2018-07-03 21:31 | CP.PCM.DIS ---
Provider - Provider Date of Admission: 06/30/18 13:44 Attending physician: Luca Rosado MD Consults: 06/30/18 13:49 Pulmonology Consult Routine Comment: Consult as per Dr. Catalino Rosado for COPD Consulting Provider: Juanjose Henley Consulting Physician: Juanjose Henley Reason for Consult: Consult as per Dr. Catalino Rosado for COPD Time Spent in preparation of Discharge (in minutes): 20 Hospital Course - Lab Results Lab Results: Most Recent Lab Values WBC 6.2 K/uL (4.8-10.8) 06/29/18 01:11 RBC 3.60 Mil/uL (4.40-5.90) L 06/29/18 01:11 Hgb 9.6 g/dL (12.0-18.0) L 06/29/18 01:11 Hct 30.2 % (35.0-51.0) L 06/29/18 01:11 MCV 83.9 fL (80.0-94.0) 06/29/18 01:11 MCH 26.7 pg (27.0-31.0) L 06/29/18 01:11 MCHC 31.8 g/dL (33.0-37.0) L 06/29/18 01:11 RDW 17.5 % (11.5-14.5) H 06/29/18 01:11 Plt Count 359 K/uL (130-400) 06/29/18 01:11 MPV 8.7 fL (7.2-11.7) 06/29/18 01:11 Neut % (Auto) 54.5 % (50.0-75.0) 06/29/18 01:11 Lymph % (Auto) 32.1 % (20.0-40.0) 06/29/18 01:11 [place] % (Auto) 11.5 % (0.0-10.0) H 06/29/18 01:11 Eos % (Auto) 0.9 % (0.0-4.0) 06/29/18 01:11 Baso % (Auto) 1.0 % (0.0-2.0) 06/29/18 01:11 Neut # (Auto) 3.4 K/uL (1.8-7.0) 06/29/18 01:11 Lymph # (Auto) 2.0 K/uL (1.0-4.3) 06/29/18 01:11 [place] # (Auto) 0.7 K/uL (0.0-0.8) 06/29/18 01:11 Eos # (Auto) 0.1 K/uL (0.0-0.7) 06/29/18 01:11 Baso # (Auto) 0.1 K/uL (0.0-0.2) 06/29/18 01:11 PT 10.9 SECONDS (9.7-12.2) 06/29/18 01:17 INR 1.0 06/29/18 01:17 APTT 29.0 SECONDS (21-34) 06/29/18 01:17 D-Dimer, Quantitative 605 ng/mlDDU (0-243) H 06/29/18 01:17 Puncture Site Rra 06/29/18 01:40 pCO2 56 mm/Hg (35-45) H 06/29/18 01:40 pO2 166 mm/Hg (80-100) H 06/29/18 01:40 HCO3 27.6 mmol/L (21-28) 06/29/18 01:40 ABG pH 7.34 (7.35-7.45) L 06/29/18 01:40 ABG Total CO2 31.9 mmol/L (22-28) H 06/29/18 01:40 ABG O2 Saturation 99.6 % (95-98) H 06/29/18 01:40 ABG Base Excess 3.5 mmol/L (-2.0-3.0) H 06/29/18 01:40 ABG Hemoglobin 9.9 g/dL (11.7-17.4) L 06/29/18 01:40 ABG Carboxyhemoglobin 3.9 % (0.5-1.5) H 06/29/18 01:40 POC ABG HHb (Measured) 0.4 % (0.0-5.0) 06/29/18 01:40 ABG Methemoglobin 1.6 % (0.0-3.0) 06/29/18 01:40 [place] Test Na 06/29/18 01:40 A-a O2 Difference 49.0 mm/Hg 06/29/18 01:40 Respiratory Index 0.3 06/29/18 01:40 Hgb O2 Saturation 94.2 % (95.0-98.0) L 06/29/18 01:40 Mechanical Rate 14 06/29/18 01:40 FiO2 40.0 % 06/29/18 01:40 Inspiratory BiPAP 14 06/29/18 01:40 Expiratory BiPAP 7 06/29/18 01:40 Sodium 137 mmol/L (132-148) 06/29/18 01:11 Potassium 4.9 mmol/L (3.6-5.2) 06/29/18 01:11 Chloride 97 mmol/L (98-107) L 06/29/18 01:11 Carbon Dioxide 25 mmol/L (22-30) 06/29/18 01:11 Anion Gap 20 (10-20) 06/29/18 01:11 BUN 4 mg/dL (9-20) L 06/29/18 01:11 Creatinine 0.6 mg/dL (0.8-1.5) L 06/29/18 01:11 Est GFR ( Amer) > 60 06/29/18 01:11 Est GFR (Non-Af Amer) > 60 06/29/18 01:11 POC Glucose (mg/dL) 160 mg/dL (65-110) H 07/03/18 11:42 Random Glucose 126 mg/dL (75-110) H 06/29/18 01:11 Calcium 8.5 mg/dl (8.6-10.4) L 06/29/18 01:11 Total Bilirubin 0.8 mg/dL (0.2-1.3) 06/29/18 01:11 AST 232 U/L (17-59) H D 06/29/18 01:11 ALT 174 U/L (21-72) H D 06/29/18 01:11 Alkaline Phosphatase 345 U/L (38-126) H D 06/29/18 01:11 Troponin I 0.0250 ng/mL (0.00-0.120) 06/29/18 01:11 NT-Pro-B Natriuret Pep 993 pg/mL (0-900) H 06/29/18 01:11 Total Protein 8.1 g/dL (6.3-8.3) 06/29/18 01:11 Albumin 4.2 g/dL (3.5-5.0) 06/29/18 01:11 Globulin 3.9 gm/dL (2.2-3.9) 06/29/18 01:11 Albumin/Globulin Ratio 1.1 (1.0-2.1) 06/29/18 01:11 Urine Opiates Screen Negative (NEGATIVE) 06/29/18 01:01 Urine Methadone Screen Negative (NEGATIVE) 06/29/18 01:01 Ur Barbiturates Screen Negative (NEGATIVE) 06/29/18 01:01 Ur Phencyclidine Scrn Negative (NEGATIVE) 06/29/18 01:01 Ur Amphetamines Screen Negative (NEGATIVE) 06/29/18 01:01 U Benzodiazepines Scrn Negative (NEGATIVE) 06/29/18 01:01 U Oth Cocaine Metabols Negative (NEGATIVE) 06/29/18 01:01 U Cannabinoids Screen Positive (NEGATIVE) H 06/29/18 01:01 - Hospital Course Hospital Course: Admitted with a COPD exacerbation Patient complains of pain also on the back received the pain medicine Patient still has a pain Patient feels much better although on the oxygen chest x-ray revealed similar cardiomegaly and pulmonary venous conditions Patient is seen by pulmonary DrNessa who ordered a VQ scan also which revealed low probability scan patient feels much better patient is walking around eventually patient discharged home discussed with the staff with the DuoNeb antibiotic for 3 days and other medication as ordered Moderate to high complexity of care. Plan of care discussed with patient &/or family & staff. Medications reviewed and reconciled. Labs reviewed. Vitals reviewed. Discharge Exam - Head Exam Head Exam: ATRAUMATIC, NORMAL INSPECTION, NORMOCEPHALIC - Eye Exam Eye Exam: EOMI, Normal appearance, PERRL Pupil Exam: NORMAL ACCOMODATION, PERRL - Respiratory Exam Respiratory Exam: Decreased Breath Sounds - Cardiovascular Exam Cardiovascular Exam: REGULAR RHYTHM, +S1, +S2 - GI/Abdominal Exam GI & Abdominal Exam: Diminished Bowel Sounds, Soft - Rectal Exam Rectal Exam: Deferred - Neurological Exam Neurological exam: Oriented x3 Discharge Plan - Discharge Medications Prescriptions: Albuterol HFA [Ventolin HFA 90 mcg/actuation (8 g)] 1 puff IH QID PRN #1 inhaler PRN Reason: Wheezing - Follow Up Plan Condition: STABLE Disposition: HOME/ ROUTINE Instructions: Smoking: Not Just Harmful to Your Lungs and Heart, Heart Failure, Adult (DC), Quitting Smoking, Exacerbation of COPD (DC), Albuterol Additional Instructions: FOLLOW UP WITH DR Debbie ROSADO IN HIS OFFICE FOLLOW UP WITH DR HENLEY IN HIS OFFICE CONTINUE HOME MEDICATION NEW PRESCRIPTION GIVEN VENTOLIN ACTIVITY TOLERATED CALL DR Debbie ROSADO OR GO TO EMERGENCY ROOM IF SYMPTOM RETURN OR WORSENING Referrals: Juanjose Henley MD [Staff Provider] - Quinten Rosado MD [Staff Provider] -
== END 2018-07-03 15:30 | disposition home or self-care (01) | DRG 88 ==
LOC: C.ER 00:31 → C.5S 02:52 → OBSVTOIN 06-30 13:44
PROVIDERS: ADMIT Internal Medicine Nephrology; ATTEND Internal Medicine Nephrology
PROC: 5A09357 Assistance with Respiratory Ventilation, Less than 24 Consecutive Hours, Continuous Positive Airway Pressure (ICD-10-PCS; principal; 2018-06-29)
DX: J43.9 Emphysema, unspecified (principal); I11.0 Hypertensive heart disease with heart failure; I50.9 Heart failure, unspecified; E78.00 Pure hypercholesterolemia, unspecified; F10.10 Alcohol abuse, uncomplicated; I48.91 Unspecified atrial fibrillation; Z87.01 Personal history of pneumonia (recurrent); Z87.891 Personal history of nicotine dependence; Z95.0 Presence of cardiac pacemaker; Z95.1 Presence of aortocoronary bypass graft; Z95.5 Presence of coronary angioplasty implant and graft; Z83.3 Family history of diabetes mellitus

== ENCOUNTER 2018-07-15 19:13 | Inpatient (IN) | payer OTHER ==
[2018-07-15 19:13] VITALS: BMI 28.3
--- NOTE | 2018-07-15 19:38 | C.PDOC ---
History Of Present Illness Patient presents with increased shortness of breath and some chest discomfort. Patient continues to drink on a regular basis, and really non compliant with his meds. Speaking in 3-4 word sentences. Time Seen by Provider: 07/15/18 19:37 Chief Complaint (Nursing): Chest Pain History Per: Patient History/Exam Limitations: no limitations Onset/Duration Of Symptoms: Days Current Symptoms Are (Timing): Worse Context: Other Severity: Severe Pain Scale Rating Of: 8 Quality: Dull Associated Symptoms: Dyspnea Modifying Factors: None Alleviating Factors: None Recent travel outside of the [place]: No Additional History Per: Patient Past Medical History Reviewed: Historical Data, Nursing Documentation, Vital Signs Vital Signs: Last Vital Signs Temp 97.8 F 07/15/18 19:22 Pulse 115 H 07/15/18 19:22 Resp 26 H 07/15/18 19:22 BP 152/104 H 07/15/18 19:22 Pulse Ox 98 07/15/18 19:22 Primary Care Provider: Non [facility] Provider, - Medical History PMH: Asthma, Atrial Fibrillation, Back Problems, Cardia Arrhythmia, CHF, COPD, Depression, Emphysema, HTN, Hypercholesterolemia, Pneumonia, Seizures Denies: Chronic Kidney Disease Surgical History: CABG (double), Coronary Stent (4), Pacemaker - [facility] Procedures ASSISTANCE WITH RESPIRATORY VENTILATION, 24-96 HRS, CPAP (04/24/18) ASSISTANCE WITH RESPIRATORY VENTILATION, <24 HRS, CPAP (06/30/18) CORONAR ARTERIOGR-2 CATH (06/24/14) CORONARY ARTERY STENT INSERTION [id number] (06/24/14) DETOXIFICATION SERVICES FOR SUBSTANCE ABUSE TREATMENT (08/12/17) INFLUENZA VACCINATION (04/25/14) INSERTION OF ONE VASCULAR STENT (06/24/14) INTRODUCE OF OTH THERAP SUBST INTO RESP TRACT, VIA OPENING (06/19/15) INTRODUCTION OF SERUM/TOX/VACCINE INTO MUSCLE, PERC APPROACH (01/05/16) LEFT HEART CARDIAC CATH (06/24/14) NEBULIZER THERAPY (07/12/14) PERCUTANEOUS TRANSLUMINAL CORONARY ANGIOPLASTY [PTCA] (06/24/14) PROCEDURE ON SINGLE VESSEL (06/24/14) VACCINATION NEC (04/25/14) Family History: States: Diabetes - Social History Hx Tobacco Use: Yes Hx Alcohol Use: Yes Hx Substance Use: No (denied) - Immunization History Hx Tetanus Toxoid Vaccination: No Hx Influenza Vaccination: No Hx Pneumococcal Vaccination: No Review Of Systems Constitutional: Negative for: Fever, Chills ENT: Negative for: Throat Pain Cardiovascular: Positive for: Chest Pain Respiratory: Positive for: Cough, Shortness of Breath, SOB with Excertion, Wheezing Gastrointestinal: Negative for: Nausea, Vomiting, Abdominal Pain Genitourinary: Negative for: Dysuria Musculoskeletal: Negative for: Back Pain Skin: Negative for: Rash Neurological: Negative for: Weakness Psych: Negative for: Anxiety Physical Exam - Physical Exam Appears: In Acute Distress Skin: Warm, Dry Head: Normacephalic Eye(s): bilateral: Normal Inspection Oral Mucosa: Moist Neck: Trachea Midline, Supple Chest: Symmetrical Cardiovascular: Rhythm Regular Respiratory: Decreased Breath Sounds, Rales, Rhonchi, Wheezing Gastrointestinal/Abdominal: Soft, No Tenderness, No Distention, No Guarding, No Rebound Back: No CVA Tenderness Extremity: No Tenderness, Pedal Edema Extremity: Bilateral: Atraumatic, Normal Color And Temperature, Normal ROM Pulses: Left Dorsalis Pedis: Normal, Right Dorsalis Pedis: Normal Neurological/Psych: Oriented x3 Gait: Unable To Assess ED Course And Treatment - Laboratory Results Result Diagrams: 07/15/18 20:24 07/15/18 20:24 ECG: Interpreted By Me, Viewed By Me ECG Rhythm: Sinus Tachycardia (117), ST/T Changes (lat ischemic changes), Nonspecific Changes O2 Sat by Pulse Oximetry: 98 Pulse Ox Interpretation: Normal - Radiology CXR: Interpreted by Me, Viewed By Me CXR Interpretation: Yes: Cardiomegaly, Other (left pacer, vasc congestion). No: Infiltrates, Fracture Progress Note: I've placed an 18 g right EJ without any difficulty, pt tolerated the procedure well Critical Care Time - Critical Care Note Total Time (in mins): 30 Documented critical care: time excludes all time spent performing seperately billable procedures. Disposition Discussed With : Quinten Lema Comment: acceptd the pt onhis service and took over the care at 9:27PM Doctor Will See Patient In The: Hospital Counseled Patient/Family Regarding: Studies Performed, Diagnosis - Disposition Disposition: HOSPITALIZED Disposition Time: 19:37 Condition: GUARDED Forms: [employer] ([place]) - POA Present On Arrival: Poor Glycemic Control - Clinical Impression Clinical Impression: COPD exacerbation, Chest pain, CHF (congestive heart failure) Decision To Admit - Pt Status Changed To: Hospital Disposition Of: Inpatient - Admit Certification Admit to Inpatient:: After my assessment, the patient will require hospitalization for at least two midnights. This is because of the severity of symptoms shown, intensity of services needed, and/or the medical risk in this patient being treated as an outpatient. - InPatient: Physician Admission Certification: I certify that this patient requires 2 or more midnights of care for the following reason:: After my assessment, the patient will require hospitalization for at least two midnights. This is because of the severity of symptoms shown, intensity of services needed, and/or the medical risk in this patient being treated as an outpatient. - . Bed Request Type: Telemetry Admitting Physician: Quinten Lema Patient Diagnosis: COPD exacerbation, Chest pain, CHF (congestive heart failure), Respiratory distress
[2018-07-15] MEDS ORDERED: Aspirin 325 mg EC Tablets PO STA (19:43)
[2018-07-15] MEDS: Albuterol-Ipratrop 3 mg / 0.5 (3 ml) UD IH SCH ×3 (20:00→20:15)
[2018-07-15] MEDS ORDERED: Albuterol-Ipratrop 3 mg / 0.5 (3 ml) UD ONE ×2 (20:05→20:15)
[2018-07-15] MEDS ORDERED: Aspirin 325 mg EC Tablets PO ONE (20:09)
[2018-07-15 20:20] LABS: ABG ALLEN TEST POS; ARTERIAL BLOOD GAS HCO3 23.5 mmol/L (21-28); ARTERIAL BLOOD GAS O2 SAT 95.9 % (95-98); ARTERIAL BLOOD GAS PCO2 46 mm/Hg (35-45); ARTERIAL BLOOD GAS PH 7.33 (7.35-7.45); ARTERIAL BLOOD GAS PO2 141 mm/Hg (80-100); ARTERIAL BLOOD GAS TCO2 25.7 mmol/L (22-28)
[2018-07-15 20:29] LABS: BASO # 0.1 K/uL (0.0-0.2); BASO % 1.1 % (0.0-2.0); EOS # 0.2 K/uL (0.0-0.7); LYMPH # 0.6 K/uL (1.0-4.3); LYMPH % 6.1 % (20.0-40.0); MEAN CELL VOLUME 83.2 fL (80.0-94.0); MEAN CORPUSCULAR HEMOGLOBIN 25.3 pg (27.0-31.0); MEAN CORPUSCULAR HGB CONC 30.4 g/dL (33.0-37.0); MEAN PLATELET VOLUME 8.6 fL (7.2-11.7); MONO # 1.7 K/uL (0.0-0.8); MONO % 16.5 % (0.0-10.0); NEUT # 7.6 K/uL (1.8-7.0); NEUT % 74.3 % (50.0-75.0); NRBC % 1.3 % (0.0-2.0); PLATELET COUNT 391 K/uL (130-400); RBC 3.95 Mil/uL (4.40-5.90); RED CELL DISTRIBUTION WIDTH 18.6 % (11.5-14.5); WHITE BLOOD COUNT 10.2 K/uL (4.8-10.8)
[2018-07-15 20:36] LABS: PARTIAL THROMBOPLASTIN TIME 27.5 SECONDS (21-34); PROTHROMBIN TIME 10.9 SECONDS (9.7-12.2)
[2018-07-15 20:44] LABS: ALB/GLOB RATIO 1.2 (1.0-2.1); ALBUMIN 4.2 g/dL (3.5-5.0); ALT/SGPT 199 U/L (21-72); AST/SGOT 179 U/L (17-59); BLOOD UREA NITROGEN 9 mg/dL (9-20); CALCIUM 8.9 mg/dl (8.6-10.4); GFR NON-AFRICAN AMERICAN > 60
[2018-07-15 20:52] LABS: B-TYPE NATRIURETIC PEPTIDE 1340 pg/mL (0-900)
[2018-07-15 21:07] LABS: ANISOCYTOSIS SLIGHT; HYPOCHROMIC SLIGHT; LYMPHOCYTE 8 % (20-40); MONOCYTE 9 % (0-10); NEUTROPHIL 83 % (50-75); PLATELET ESTIMATE NORMAL (NORMAL); TOTAL CELLS COUNTED 100
[2018-07-15 21:42] LABS: SQUAMOUS EPITHIAL 2 /hpf (0-5); URINE BACTERIA RARE (<OCC); URINE BILIRUBIN NEGATIVE (NEGATIVE); URINE BLOOD NEGATIVE (NEGATIVE); URINE CLARITY Clear (Clear); URINE COLOR Straw (YELLOW); URINE GLUCOSE (UA) NORMAL (Normal); URINE LEUKOCYTE ESTERASE NEG Leu/uL (Negative); URINE PROTEIN NEGATIVE (NEGATIVE); URINE UROBILINOGEN NORMAL mg/dL (0.2-1.0)
[2018-07-15] MEDS ORDERED: Magnesium Sulfate 1 gm in D5W 2 GM/200 ML BAG IVPB ONE (21:44)
[2018-07-15] MEDS: Magnesium Sulfate 1 gm in D5W 1 GM/100 ML BAG IVPB SCH ×2 (21:45→22:08)
[2018-07-16] MEDS: Albuterol-Ipratrop 3 mg / 0.5 (3 ml) UD INH SCH ×4 (01:52→19:44)
[2018-07-16] MEDS ORDERED: Metoprolol 1 mg/ml Inj IVP STA (04:34)
[2018-07-16] MEDS ORDERED: Metoprolol 1 mg/ml Inj ONE ×2 (04:42→08:00)
[2018-07-16] MEDS ORDERED: Albuterol-Ipratrop 3 mg / 0.5 (3 ml) UD INH STA (04:43)
[2018-07-16] MEDS ORDERED: MethylPREDNISolone 40 mg Vial IVP STA ×2 (04:47→08:17)
--- NOTE | 2018-07-16 04:50 | CP.PCM.PCO ---
Addendum Addendum: 07/16/18 04:48 Paged by RN Patient noted to be tachycardic into 150s Patient examined at bedside, noted to be saturating 96% on bipap with diffuse wheezes on lung examination Lopressor, solu-medrol, and duonebs stat administered Patient reports improvement in breathing status No escalation of care indicated at this time Continue to monitor Roman Jeffers PGY-1
[2018-07-16] MEDS: MethylPREDNISolone 40 mg Vial IVP SCH ×3 (06:24→21:20)
[2018-07-16] MEDS ORDERED: Metoprolol 1 mg/ml Inj IVP ONE ×2 (07:15→09:30)
[2018-07-16 07:52] VITALS: RESP 20
--- NOTE | 2018-07-16 08:35 | CP.PCM.PCO ---
Physician Communication Note - Physician Communication Note Physician Communication Note: Azithromycin held 2/2 prolonged QTc
[2018-07-16 08:38] LABS: HEMOGLOBIN 9.5 g/dL (12.0-18.0); MEAN CORPUSCULAR HEMOGLOBIN 25.6 pg (27.0-31.0); MEAN CORPUSCULAR HGB CONC 31.9 g/dL (33.0-37.0); MEAN PLATELET VOLUME 8.7 fL (7.2-11.7); RBC 3.71 Mil/uL (4.40-5.90); RED CELL DISTRIBUTION WIDTH 18.7 % (11.5-14.5); WHITE BLOOD COUNT 8.4 K/uL (4.8-10.8)
[2018-07-16 08:48] LABS: MEAN CELL VOLUME 80.2 fL (80.0-94.0)
--- NOTE | 2018-07-16 09:11 | PCM.RRT ---
<Freida Dorman V - Last Filed: 07/16/18 10:09> Attending/Attestation - Attestation I have personally seen and examined this patient.: Yes I have fully participated in the care of the patient.: Yes I have reviewed all pertinent clinical information, including history, physical exam and plan: Yes Notes (Text): COMBAT SYSTEMS OPERATOR: acute respiratory distress Brief hospitalist note 58 year old Male pmxh alcohol, atrial fib/flutter (supposed to on eliquis), severe systolic chf (EF 25-30%), has a pacemaker noted for shortness of breathe. Overnight, patient required Solumedrol 125mg IVP, Cardizem 15mg IVP; per night time nurse Ray, patient refused his bipap and blood work including lactate: on tele strip heart rate 180s, patient received 2 dose from the night time resident, Lopressor 5mg IVP X2. Patient noted tachypnic, on bipap, reports palpitations. He is AAOX3. increased work of breathing noted. Per patient, aicd did not fire. At the COMBAT SYSTEMS OPERATOR, heart rate in 140s. Patient had EJ in the neck placed by the ER, not infiltrated. There were multiple attempts by nursing staff to try for peripheral access but patient moved multiple times. Patient refused ABG at bedside; advised we need it given an emergent situation but patient refused. Patient placed on Bipap 10/5/100% prior to start of COMBAT SYSTEMS OPERATOR. Prior to COMBAT SYSTEMS OPERATOR, urine output 400CC per night time nurse Ray Given 2 dose of Lasix 40 IV X1, 500cc urine output and urinating post. Patient received Cardizem 25mg IVP total, but heart rate did not improve (calculated based on meds). Patient given Solumedrol 40mg IVP X1 given respiratory distress. Called ICU, recommended for Verampil 5mg IVPX1. heart rate remains in 140s. ICU came to evaluate the patient, given an additional Verampil 5mg IVPX1, and Lopressor 5mg IVPX1, and loading dose of Lopressor 25mg POX1. Heart rate improved to 100s with SBP: 100s. Lactate improved from 5.1-->3.9. Patient noted edema over the legs 3+, rales on exam. repeated chest xray. pulmonary edema, cardiomegaly. Patient reports last drink overnight, unclear how much. Noted: patient had AMA last admission. unclear how compliant of meds he is. Patient reports his pacemaker? was checked last admission. Labs repeated, EKG performed, replenishment analyst contacted by resident, pmd contaced by resident, icu contacted by myself. Patient is stable to remain on telemetry. Time spent: 60 min <AmiesowmyaSharif - Last Filed: 07/16/18 16:05> COMBAT SYSTEMS OPERATOR Nurses Assessment - Situation Time COMBAT SYSTEMS OPERATOR was called: 07:59 - Ventilator Settings FIO2 (% Oxygen): 25 - Constitutional Appears: No Acute Distress - Head Head Exam: ATRAUMATIC, NORMOCEPHALIC - Eyes Eye Exam: EOMI - Respiratory Exam Respiratory Exam: Wheezes, NORMAL BREATHING PATTERN. absent: Rhonchi Additional comments: On BiPap - Cardiovascular Exam Cardiovascular Exam: Tachycardia, +S1, +S2 Additional comments: sinus tach on monitor 140s - GI/Abdominal Exam GI & Abdominal Exam: Soft, Tenderness, Normal Bowel Sounds - Neurological Exam Neurological Exam: Alert, Awake, Oriented x3 - Extremities Exam Extremities Exam: Pedal Edema (2-3+ pitting edema) Plan - Assessment of Findings&Treatment Plan PGY-1 COMBAT SYSTEMS OPERATOR Note for Dr. Dorman and Dr. Day COMBAT SYSTEMS OPERATOR called for persistent tachycardia, HR 140s. HR had been 140s during the night, not responsive to beta blockade. Patient has hx COPD, systolic CHF (EF 25-30%), A fib, noncompliant with meds Placed on skein tier - sinus tach 140s Cardizem given for total 25mg IV - 10, 10, 5 mg and rhythm did not break Following cardizem, verapimil 5 mg IV administered and rhythm did not break. Additional dose of Lasix 40 IV given - patient did urinate and put out about 600cc Additional solumedrol 40 mg IV administered ICU was called for ICU consult, Dr. Kamran Lema - ICU Patient was administered additional dose of verapimil, at which point patient's HR did begin to slow on monitor Patient's HR stabilized and patient clinically improved, and did not require ICU transfer Vitals 145/83 [id number]% 98.6F HR 144 --> HR end COMBAT SYSTEMS OPERATOR 99
[2018-07-16] MEDS ORDERED: Sodium Chloride 0.9% 500 ML IV ONE (09:19)
[2018-07-16] MEDS ORDERED: Verapamil 2 ML ONE (09:19)
[2018-07-16 09:53] LABS: ALB/GLOB RATIO 1.3 (1.0-2.1); ALT/SGPT 191 U/L (21-72); AST/SGOT 135 U/L (17-59); BLOOD UREA NITROGEN 10 mg/dL (9-20); CALCIUM 8.9 mg/dl (8.6-10.4); GFR NON-AFRICAN AMERICAN > 60
[2018-07-16] MEDS ORDERED: Azithromycin 500 MG in Sodium Chloride 0.9% 250 ML IVPB SCH (10:00)
[2018-07-16] MEDS ORDERED: Enoxaparin 40 mg Syringe SC SCH (10:00)
[2018-07-16 10:17] LABS: CK-MB 4.71 ng/mL (0.0-3.38)
[2018-07-16] MEDS: Pantoprazole 40 mg EC Tab PO SCH (10:19)
[2018-07-16 10:26] LABS: HEMOGLOBIN 9.1 g/dL (12.0-18.0); MEAN CELL VOLUME 80.5 fL (80.0-94.0); MEAN CORPUSCULAR HEMOGLOBIN 25.3 pg (27.0-31.0); MEAN CORPUSCULAR HGB CONC 31.4 g/dL (33.0-37.0); MEAN PLATELET VOLUME 8.7 fL (7.2-11.7); PLATELET COUNT 393 K/uL (130-400); RBC 3.61 Mil/uL (4.40-5.90); RED CELL DISTRIBUTION WIDTH 18.3 % (11.5-14.5); WHITE BLOOD COUNT 7.9 K/uL (4.8-10.8)
--- NOTE | 2018-07-16 11:54 | CP.PCM.CON ---
History of Present Illness - History of Present Illness History of Present Illness: Pulmonary Consult, Covering Dr. Gonzalez The patient was Seen/interviewed and examined by me at the bedside, Medical records reviewed and Management issues were discussed and formulated with the house staff. Events reviewed, Mr Fitzgerald is a 58 years old male with past medical history of congestive heart failure with reduced ejection fraction (EF 25-30%), hypertension, hypercholesterolemia, chronic atrial fibrillation, cardiac arrhythmia, depression, seizure, asthma and chronic obstructive pulmonary disease. Who presented to the emergency room yesterday with complaint of worsening shortness of breath and discomfort for the past couple of days, denies fever/chills, diaphoresis, hemoptysis, palpitation or loss of consciousness. In the emergency room patient was tachycardic to heart rate of 117, hemodynamically stable and adequate saturation. Chest x-ray revealed cardiomegaly, pacemaker and pulmonary vascular congestion, patient was admitted to telemetry for congestive heart failure and COPD exacerbation. He was started on intravenous Solu-Medrol at 40 mg every 8 hours IV antibiotics with ceftriaxone, nebulizer treatments and home medication was continued. This morning rapid response was called around 8:00 in the morning for persistent tachycardia with heart rate in the 140, also patient seemed to be in respiratory distress, he received intravenous Lasix, beta-blockers, Cardizem and nebulizer treatment. Patient respiratory condition stabilized receive a chest x-ray which was consistent with pulmonary edema and cardiomegaly and he remained on the telemetry floor On exam patient looks more comfortable now, alert awake oriented x3, less dyspneic, denies chest pain, diaphoresis or palpitation. On today's exam he is awake, Oriented Pt looks more comfortable but dyspnic on minimal exertions Patient stated that cough has improved denies chest pain No fever/chills No Wheezing noted on exam Home medications reviewed, and renewed Past Patient History - Infectious Disease Hx of Infectious Diseases: None - Tetanus Immunizations Tetanus Immunization: Unknown - Past Medical History & Family History Past Medical History?: Yes - Past Social History Smoking Status: Current Some Days Smoker - CARDIAC Hx Atrial Fibrillation: Yes Hx Cardia Arrhythmia: Yes Hx Congestive Heart Failure: Yes Hx Hypercholesterolemia: Yes Hx Hypertension: Yes Hx Pacemaker: Yes - PULMONARY Hx Asthma: Yes Hx Chronic Obstructive Pulmonary Disease (COPD): Yes Hx Emphysema: Yes Hx Pneumonia: Yes - NEUROLOGICAL Hx Seizures: Yes - HEENT Hx HEENT Problems: No - RENAL Hx Chronic Kidney Disease: No - ENDOCRINE/METABOLIC Hx Endocrine Disorders: No Hx Diabetes Mellitus Type 2: No - HEMATOLOGICAL/ONCOLOGICAL Hx Blood Disorders: Yes - INTEGUMENTARY Hx Dermatological Problems: No - MUSCULOSKELETAL/RHEUMATOLOGICAL Hx Falls: No - GASTROINTESTINAL Hx Gastrointestinal Disorders: No - GENITOURINARY/GYNECOLOGICAL Hx Genitourinary Disorders: No - PSYCHIATRIC Hx Depression: Yes Hx Substance Use: Yes - SURGICAL HISTORY Hx Coronary Artery Bypass Graft: Yes (double) Hx Coronary Stent: Yes (4) - ANESTHESIA Hx Anesthesia: Yes (denied) Hx Anesthesia Reactions: No Hx Malignant Hyperthermia: No Meds Allergies/Adverse Reactions: Allergies Allergy/AdvReac Type Severity Reaction Status Date / Time No Known Allergies Allergy Verified 06/29/18 00:44 - Medications Medications: Current Medications Albuterol/Ipratropium (Duoneb 3 Mg/0.5 Mg (3 Ml) Ud) 3 ml INH RQ6 [facility] Last Admin: 07/16/18 08:30 Dose: Not Given Enoxaparin Sodium (Lovenox) 40 mg SC DAILY [facility] Furosemide (Lasix) 20 mg IVP DAILY [facility] Last Admin: 07/16/18 10:22 Dose: Not Given Ceftriaxone Sodium 1 gm/ (Sodium Chloride) 100 mls @ 100 mls/hr IVPB DAILY [facility]; Protocol Methylprednisolone (Solu-Medrol) 40 mg IVP Q8 [facility] Last Admin: 07/16/18 06:24 Dose: 40 mg Metoprolol Tartrate (Lopressor) 25 mg PO BID [facility] Last Admin: 07/16/18 10:22 Dose: 25 mg Montelukast Sodium (Singulair) 10 mg PO DAILY [facility] Last Admin: 07/16/18 10:20 Dose: 10 mg Pantoprazole Sodium (Protonix Ec Tab) 40 mg PO DAILY [facility] Last Admin: 07/16/18 10:19 Dose: 40 mg Thiamine HCl (Vitamin B1 Tab) 100 mg PO DAILY [facility] Last Admin: 07/16/18 10:19 Dose: 100 mg Results - Vital Signs Recent Vital Signs: Last Vital Signs Temp 98.8 F 07/16/18 07:30 Pulse 115 H 07/16/18 00:00 Resp 20 07/16/18 07:30 BP 146/99 H 07/16/18 10:22 Pulse Ox 93 L 07/16/18 07:30 - Labs Result Diagrams: 07/16/18 10:21 07/16/18 08:27 Labs: Laboratory Results - last 24 hr 07/15/18 07/15/18 07/15/18 20:15 20:24 20:24 WBC 10.2 D RBC 3.95 L Hgb 10.0 L Hct 32.9 L MCV 83.2 MCH 25.3 L MCHC 30.4 L RDW 18.6 H Plt Count 391 MPV 8.6 Neut % (Auto) 74.3 Lymph % (Auto) 6.1 L [place] % (Auto) 16.5 H Eos % (Auto) 2.0 Baso % (Auto) 1.1 Neut # (Auto) 7.6 H Lymph # (Auto) 0.6 L [place] # (Auto) 1.7 H Eos # (Auto) 0.2 Baso # (Auto) 0.1 Neutrophils % (Manual) 83 H Lymphocytes % (Manual) 8 L Monocytes % (Manual) 9 Platelet Estimate Normal Hypochromasia (manual) Slight Anisocytosis (manual) Slight Macrocytosis (manual) Slight PT 10.9 INR 1.0 APTT 27.5 D-Dimer, Quantitative Puncture Site Artery pCO2 46 H pO2 141 H HCO3 23.5 ABG pH 7.33 L ABG Total CO2 25.7 ABG O2 Saturation 95.9 ABG Base Excess -1.9 Yonatan Test Pos ABG Potassium 3.5 L Sodium 139.0 Chloride 102.0 Glucose 116 H Lactate 5.9 H* Liter Flow 5.0 Crit Value Called To Rosalind acosta Crit Value Called By Sony marroquin copper plater Crit Value Read Back Y Blood Gas Notified Time 2018 Potassium Carbon Dioxide Anion Gap BUN Creatinine Est GFR ( Amer) Est GFR (Non-Af Amer) POC Glucose (mg/dL) Random Glucose Lactic Acid Calcium Magnesium Total Bilirubin AST ALT Alkaline Phosphatase Ammonia Total Creatine Kinase CK-MB (Mass) Troponin I NT-Pro-B Natriuret Pep Total Protein Albumin Globulin Albumin/Globulin Ratio Procalcitonin Free T4 TSH 3rd Generation Arterial Blood Potassium 3.5 L Urine Color Urine Clarity Urine pH Ur Specific [place] Urine Protein Urine Glucose (UA) Urine Ketones Urine Blood Urine Nitrate Urine Bilirubin Urine Urobilinogen Ur Leukocyte Esterase Urine WBC (Auto) Urine RBC (Auto) Ur Squamous Epith Cells Urine Bacteria Alcohol, Quantitative 05/07/15/18 07/16/18 20:24 21:33 06:37 WBC RBC Hgb Hct MCV MCH MCHC RDW Plt Count MPV Neut % (Auto) Lymph % (Auto) [place] % (Auto) Eos % (Auto) Baso % (Auto) Neut # (Auto) Lymph # (Auto) [place] # (Auto) Eos # (Auto) Baso # (Auto) Neutrophils % (Manual) Lymphocytes % (Manual) Monocytes % (Manual) Platelet Estimate Hypochromasia (manual) Anisocytosis (manual) Macrocytosis (manual) PT INR APTT D-Dimer, Quantitative Puncture Site pCO2 pO2 HCO3 ABG pH ABG Total CO2 ABG O2 Saturation ABG Base Excess Yonatan Test ABG Potassium Sodium 135 Chloride 99 Glucose Lactate Liter Flow Crit Value Called To Crit Value Called By Crit Value Read Back Blood Gas Notified Time Potassium 4.8 Carbon Dioxide 25 Anion Gap 17 BUN 9 Creatinine 0.6 L Est GFR ( Amer) > 60 Est GFR (Non-Af Amer) > 60 POC Glucose (mg/dL) 355 H Random Glucose 147 H Lactic Acid Calcium 8.9 Magnesium Total Bilirubin 1.0 AST 179 H D ALT 199 H Alkaline Phosphatase 381 H Ammonia Total Creatine Kinase CK-MB (Mass) Troponin I 0.0270 NT-Pro-B Natriuret Pep 1340 H Total Protein 7.7 Albumin 4.2 Globulin 3.5 Albumin/Globulin Ratio 1.2 Procalcitonin Free T4 TSH 3rd Generation Arterial Blood Potassium Urine Color Straw Urine Clarity Clear Urine pH 7.0 Ur Specific [place] 1.004 Urine Protein Negative Urine Glucose (UA) Normal Urine Ketones Negative Urine Blood Negative Urine Nitrate Negative Urine Bilirubin Negative Urine Urobilinogen Normal Ur Leukocyte Esterase Neg Urine WBC (Auto) < 1 Urine RBC (Auto) < 1 Ur Squamous Epith Cells 2 Urine Bacteria Rare Alcohol, Quantitative 257 H 07/16/18 07/16/18 07/16/18 08:02 08:27 08:27 WBC RBC Hgb Hct MCV MCH MCHC RDW Plt Count MPV Neut % (Auto) Lymph % (Auto) [place] % (Auto) Eos % (Auto) Baso % (Auto) Neut # (Auto) Lymph # (Auto) [place] # (Auto) Eos # (Auto) Baso # (Auto) Neutrophils % (Manual) Lymphocytes % (Manual) Monocytes % (Manual) Platelet Estimate Hypochromasia (manual) Anisocytosis (manual) Macrocytosis (manual) PT INR APTT D-Dimer, Quantitative Puncture Site pCO2 pO2 HCO3 ABG pH ABG Total CO2 ABG O2 Saturation ABG Base Excess Yonatan Test ABG Potassium Sodium 131 L Chloride 92 L Glucose Lactate Liter Flow Crit Value Called To Crit Value Called By Crit Value Read Back Blood Gas Notified Time Potassium 4.7 Carbon Dioxide 26 Anion Gap 18 BUN 10 Creatinine 0.5 L Est GFR ( Amer) > 60 Est GFR (Non-Af Amer) > 60 POC Glucose (mg/dL) 332 H Random Glucose 347 H D Lactic Acid Calcium 8.9 Magnesium 1.6 Total Bilirubin 1.3 AST 135 H D ALT 191 H Alkaline Phosphatase 406 H Ammonia Total Creatine Kinase 36 L CK-MB (Mass) 4.71 H Troponin I 0.0340 NT-Pro-B Natriuret Pep Total Protein 7.1 Albumin 4.0 Globulin 3.1 Albumin/Globulin Ratio 1.3 Procalcitonin 0.07 L Free T4 TSH 3rd Generation 0.78 Arterial Blood Potassium Urine Color Urine Clarity Urine pH Ur Specific [place] Urine Protein Urine Glucose (UA) Urine Ketones Urine Blood Urine Nitrate Urine Bilirubin Urine Urobilinogen Ur Leukocyte Esterase Urine WBC (Auto) Urine RBC (Auto) Ur Squamous Epith Cells Urine Bacteria Alcohol, Quantitative 07/16/18 07/16/18 07/16/18 08:27 08:27 08:27 WBC RBC Hgb Hct MCV MCH MCHC RDW Plt Count MPV Neut % (Auto) Lymph % (Auto) [place] % (Auto) Eos % (Auto) Baso % (Auto) Neut # (Auto) Lymph # (Auto) [place] # (Auto) Eos # (Auto) Baso # (Auto) Neutrophils % (Manual) Lymphocytes % (Manual) Monocytes % (Manual) Platelet Estimate Hypochromasia (manual) Anisocytosis (manual) Macrocytosis (manual) PT INR APTT D-Dimer, Quantitative 685 H Puncture Site pCO2 pO2 HCO3 ABG pH ABG Total CO2 ABG O2 Saturation ABG Base Excess Yonatan Test ABG Potassium Sodium Chloride Glucose Lactate Liter Flow Crit Value Called To Crit Value Called By Crit Value Read Back Blood Gas Notified Time Potassium Carbon Dioxide Anion Gap BUN Creatinine Est GFR ( Amer) Est GFR (Non-Af Amer) POC Glucose (mg/dL) Random Glucose Lactic Acid Calcium Magnesium Total Bilirubin AST ALT Alkaline Phosphatase Ammonia 62 H D Total Creatine Kinase CK-MB (Mass) Troponin I NT-Pro-B Natriuret Pep Total Protein Albumin Globulin Albumin/Globulin Ratio Procalcitonin Free T4 0.99 TSH 3rd Generation Arterial Blood Potassium Urine Color Urine Clarity Urine pH Ur Specific [place] Urine Protein Urine Glucose (UA) Urine Ketones Urine Blood Urine Nitrate Urine Bilirubin Urine Urobilinogen Ur Leukocyte Esterase Urine WBC (Auto) Urine RBC (Auto) Ur Squamous Epith Cells Urine Bacteria Alcohol, Quantitative 07/16/18 07/16/18 07/16/18 08:29 08:47 10:21 WBC 8.4 7.9 RBC 3.71 L 3.61 L Hgb 9.5 L 9.1 L Hct 29.7 L 29.1 L MCV 80.2 D 80.5 MCH 25.6 L 25.3 L MCHC 31.9 L 31.4 L RDW 18.7 H 18.3 H Plt Count 428 H 393 MPV 8.7 8.7 Neut % (Auto) Lymph % (Auto) [place] % (Auto) Eos % (Auto) Baso % (Auto) Neut # (Auto) Lymph # (Auto) [place] # (Auto) Eos # (Auto) Baso # (Auto) Neutrophils % (Manual) Lymphocytes % (Manual) Monocytes % (Manual) Platelet Estimate Hypochromasia (manual) Anisocytosis (manual) Macrocytosis (manual) PT INR APTT D-Dimer, Quantitative Puncture Site pCO2 pO2 HCO3 ABG pH ABG Total CO2 ABG O2 Saturation ABG Base Excess Yonatan Test ABG Potassium Sodium Chloride Glucose Lactate Liter Flow Crit Value Called To Crit Value Called By Crit Value Read Back Blood Gas Notified Time Potassium Carbon Dioxide Anion Gap BUN Creatinine Est GFR ( Amer) Est GFR (Non-Af Amer) POC Glucose (mg/dL) Random Glucose Lactic Acid 3.9 H Calcium Magnesium Total Bilirubin AST ALT Alkaline Phosphatase Ammonia Total Creatine Kinase CK-MB (Mass) Troponin I NT-Pro-B Natriuret Pep Total Protein Albumin Globulin Albumin/Globulin Ratio Procalcitonin Free T4 TSH 3rd Generation Arterial Blood Potassium Urine Color Urine Clarity Urine pH Ur Specific [place] Urine Protein Urine Glucose (UA) Urine Ketones Urine Blood Urine Nitrate Urine Bilirubin Urine Urobilinogen Ur Leukocyte Esterase Urine WBC (Auto) Urine RBC (Auto) Ur Squamous Epith Cells Urine Bacteria Alcohol, Quantitative 07/16/18 11:24 WBC RBC Hgb Hct MCV MCH MCHC RDW Plt Count MPV Neut % (Auto) Lymph % (Auto) [place] % (Auto) Eos % (Auto) Baso % (Auto) Neut # (Auto) Lymph # (Auto) [place] # (Auto) Eos # (Auto) Baso # (Auto) Neutrophils % (Manual) Lymphocytes % (Manual) Monocytes % (Manual) Platelet Estimate Hypochromasia (manual) Anisocytosis (manual) Macrocytosis (manual) PT INR APTT D-Dimer, Quantitative Puncture Site pCO2 pO2 HCO3 ABG pH ABG Total CO2 ABG O2 Saturation ABG Base Excess Yonatan Test ABG Potassium Sodium Chloride Glucose Lactate Liter Flow Crit Value Called To Crit Value Called By Crit Value Read Back Blood Gas Notified Time Potassium Carbon Dioxide Anion Gap BUN Creatinine Est GFR ( Amer) Est GFR (Non-Af Amer) POC Glucose (mg/dL) 349 H Random Glucose Lactic Acid Calcium Magnesium Total Bilirubin AST ALT Alkaline Phosphatase Ammonia Total Creatine Kinase CK-MB (Mass) Troponin I NT-Pro-B Natriuret Pep Total Protein Albumin Globulin Albumin/Globulin Ratio Procalcitonin Free T4 TSH 3rd Generation Arterial Blood Potassium Urine Color Urine Clarity Urine pH Ur Specific [place] Urine Protein Urine Glucose (UA) Urine Ketones Urine Blood Urine Nitrate Urine Bilirubin Urine Urobilinogen Ur Leukocyte Esterase Urine WBC (Auto) Urine RBC (Auto) Ur Squamous Epith Cells Urine Bacteria Alcohol, Quantitative
--- NOTE | 2018-07-16 11:56 | CP.PCM.CON ---
History of Present Illness - History of Present Illness History of Present Illness: Patient seen and examined at bedside. Patient with h/o severe systolic heart failure, h/o Lower extremity edema, actively smoking ciggs ([place]), admitted to [facility], [place]. SEARCH STRATEGIST called as patient was tchycardic. Patient denies any chest pain. Patient was on bi-pap during SEARCH STRATEGIST. HR near 148. Pmx: COPD (active smoker), Severe heart failure(s/p AICD) -Psug hx: s/p ACID -SH: (+)smoking, denies using cocaine or any other illicit drug use. During SEARCH STRATEGIST, patient's HR improved with IV verapamil + lopressor ROS: (+)tachycardai, denies chest pain, denies any headaches, denies any dizziness, no abdominal pain, (+)lower leg edema, all other systems negative Review of Systems - Constitutional Constitutional: As Per HPI Past Patient History - Infectious Disease Hx of Infectious Diseases: None - Tetanus Immunizations Tetanus Immunization: Unknown - Past Medical History & Family History Past Medical History?: Yes - Past Social History Smoking Status: Current Some Days Smoker - CARDIAC Hx Atrial Fibrillation: Yes Hx Cardia Arrhythmia: Yes Hx Congestive Heart Failure: Yes Hx Hypercholesterolemia: Yes Hx Hypertension: Yes Hx Pacemaker: Yes - PULMONARY Hx Asthma: Yes Hx Chronic Obstructive Pulmonary Disease (COPD): Yes Hx Emphysema: Yes Hx Pneumonia: Yes - NEUROLOGICAL Hx Seizures: Yes - HEENT Hx HEENT Problems: No - RENAL Hx Chronic Kidney Disease: No - ENDOCRINE/METABOLIC Hx Endocrine Disorders: No Hx Diabetes Mellitus Type 2: No - HEMATOLOGICAL/ONCOLOGICAL Hx Blood Disorders: Yes - INTEGUMENTARY Hx Dermatological Problems: No - MUSCULOSKELETAL/RHEUMATOLOGICAL Hx Falls: No - GASTROINTESTINAL Hx Gastrointestinal Disorders: No - GENITOURINARY/GYNECOLOGICAL Hx Genitourinary Disorders: No - PSYCHIATRIC Hx Depression: Yes Hx Substance Use: Yes - SURGICAL HISTORY Hx Coronary Artery Bypass Graft: Yes (double) Hx Coronary Stent: Yes (4) - ANESTHESIA Hx Anesthesia: Yes (denied) Hx Anesthesia Reactions: No Hx Malignant Hyperthermia: No Meds Allergies/Adverse Reactions: Allergies Allergy/AdvReac Type Severity Reaction Status Date / Time No Known Allergies Allergy Verified 06/29/18 00:44 - Medications Medications: Current Medications Albuterol/Ipratropium (Duoneb 3 Mg/0.5 Mg (3 Ml) Ud) 3 ml INH RQ6 PATIENCE Last Admin: 07/16/18 08:30 Dose: Not Given Enoxaparin Sodium (Lovenox) 40 mg SC DAILY [facility] Furosemide (Lasix) 20 mg IVP DAILY [facility] Last Admin: 07/16/18 10:22 Dose: Not Given Ceftriaxone Sodium 1 gm/ (Sodium Chloride) 100 mls @ 100 mls/hr IVPB DAILY [facility]; Protocol Methylprednisolone (Solu-Medrol) 40 mg IVP Q8 [facility] Last Admin: 07/16/18 06:24 Dose: 40 mg Metoprolol Tartrate (Lopressor) 25 mg PO BID [facility] Last Admin: 07/16/18 10:22 Dose: 25 mg Montelukast Sodium (Singulair) 10 mg PO DAILY [facility] Last Admin: 07/16/18 10:20 Dose: 10 mg Pantoprazole Sodium (Protonix Ec Tab) 40 mg PO DAILY [facility] Last Admin: 07/16/18 10:19 Dose: 40 mg Thiamine HCl (Vitamin B1 Tab) 100 mg PO DAILY [facility] Last Admin: 07/16/18 10:19 Dose: 100 mg Physical Exam - Head Exam Head Exam: ATRAUMATIC, NORMAL INSPECTION, NORMOCEPHALIC - Neck Exam Neck exam: Positive for: Full Rom - Respiratory Exam Respiratory Exam: Clear to Auscultation Bilateral, Rales, NORMAL BREATHING PATTERN - Cardiovascular Exam Cardiovascular Exam: Tachycardia, Irregular Rhythm, +S1, +S2 - GI/Abdominal Exam GI & Abdominal Exam: Normal Bowel Sounds, Soft - Extremities Exam Extremities exam: Positive for: pedal edema Results - Vital Signs Recent Vital Signs: Last Vital Signs Temp 98.8 F 07/16/18 07:30 Pulse 115 H 07/16/18 00:00 Resp 20 07/16/18 07:30 BP 146/99 H 07/16/18 10:22 Pulse Ox 93 L 07/16/18 07:30 - Labs Result Diagrams: 07/16/18 10:21 07/16/18 08:27 Labs: Laboratory Results - last 24 hr 07/15/18 07/15/18 07/15/18 20:15 20:24 20:24 WBC 10.2 D RBC 3.95 L Hgb 10.0 L Hct 32.9 L MCV 83.2 MCH 25.3 L MCHC 30.4 L RDW 18.6 H Plt Count 391 MPV 8.6 Neut % (Auto) 74.3 Lymph % (Auto) 6.1 L [place] % (Auto) 16.5 H Eos % (Auto) 2.0 Baso % (Auto) 1.1 Neut # (Auto) 7.6 H Lymph # (Auto) 0.6 L [place] # (Auto) 1.7 H Eos # (Auto) 0.2 Baso # (Auto) 0.1 Neutrophils % (Manual) 83 H Lymphocytes % (Manual) 8 L Monocytes % (Manual) 9 Platelet Estimate Normal Hypochromasia (manual) Slight Anisocytosis (manual) Slight Macrocytosis (manual) Slight PT 10.9 INR 1.0 APTT 27.5 D-Dimer, Quantitative Puncture Site Artery pCO2 46 H pO2 141 H HCO3 23.5 ABG pH 7.33 L ABG Total CO2 25.7 ABG O2 Saturation 95.9 ABG Base Excess -1.9 [place] Test Pos ABG Potassium 3.5 L Sodium 139.0 Chloride 102.0 Glucose 116 H Lactate 5.9 H* Liter Flow 5.0 Crit Value Called To Rosalind acosta Crit Value Called By Sony marroquin cruise director Crit Value Read Back Y Blood Gas Notified Time 2018 Potassium Carbon Dioxide Anion Gap BUN Creatinine Est GFR ( Amer) Est GFR (Non-Af Amer) POC Glucose (mg/dL) Random Glucose Lactic Acid Calcium Magnesium Total Bilirubin AST ALT Alkaline Phosphatase Ammonia Total Creatine Kinase CK-MB (Mass) Troponin I NT-Pro-B Natriuret Pep Total Protein Albumin Globulin Albumin/Globulin Ratio Procalcitonin Free T4 TSH 3rd Generation Arterial Blood Potassium 3.5 L Urine Color Urine Clarity Urine pH Ur Specific [place] Urine Protein Urine Glucose (UA) Urine Ketones Urine Blood Urine Nitrate Urine Bilirubin Urine Urobilinogen Ur Leukocyte Esterase Urine WBC (Auto) Urine RBC (Auto) Ur Squamous Epith Cells Urine Bacteria Alcohol, Quantitative 07/15/18 07/15/18 07/16/18 20:24 21:33 06:37 WBC RBC Hgb Hct MCV MCH MCHC RDW Plt Count MPV Neut % (Auto) Lymph % (Auto) [place] % (Auto) Eos % (Auto) Baso % (Auto) Neut # (Auto) Lymph # (Auto) [place] # (Auto) Eos # (Auto) Baso # (Auto) Neutrophils % (Manual) Lymphocytes % (Manual) Monocytes % (Manual) Platelet Estimate Hypochromasia (manual) Anisocytosis (manual) Macrocytosis (manual) PT INR APTT D-Dimer, Quantitative Puncture Site pCO2 pO2 HCO3 ABG pH ABG Total CO2 ABG O2 Saturation ABG Base Excess Yonatan Test ABG Potassium Sodium 135 Chloride 99 Glucose Lactate Liter Flow Crit Value Called To Crit Value Called By Crit Value Read Back Blood Gas Notified Time Potassium 4.8 Carbon Dioxide 25 Anion Gap 17 BUN 9 Creatinine 0.6 L Est GFR ( Amer) > 60 Est GFR (Non-Af Amer) > 60 POC Glucose (mg/dL) 355 H Random Glucose 147 H Lactic Acid Calcium 8.9 Magnesium Total Bilirubin 1.0 AST 179 H D ALT 199 H Alkaline Phosphatase 381 H Ammonia Total Creatine Kinase CK-MB (Mass) Troponin I 0.0270 NT-Pro-B Natriuret Pep 1340 H Total Protein 7.7 Albumin 4.2 Globulin 3.5 Albumin/Globulin Ratio 1.2 Procalcitonin Free T4 TSH 3rd Generation Arterial Blood Potassium Urine Color Straw Urine Clarity Clear Urine pH 7.0 Ur Specific [place] 1.004 Urine Protein Negative Urine Glucose (UA) Normal Urine Ketones Negative Urine Blood Negative Urine Nitrate Negative Urine Bilirubin Negative Urine Urobilinogen Normal Ur Leukocyte Esterase Neg Urine WBC (Auto) < 1 Urine RBC (Auto) < 1 Ur Squamous Epith Cells 2 Urine Bacteria Rare Alcohol, Quantitative 257 H 07/16/18 07/16/18 07/16/18 08:02 08:27 08:27 WBC RBC Hgb Hct MCV MCH MCHC RDW Plt Count MPV Neut % (Auto) Lymph % (Auto) [place] % (Auto) Eos % (Auto) Baso % (Auto) Neut # (Auto) Lymph # (Auto) [place] # (Auto) Eos # (Auto) Baso # (Auto) Neutrophils % (Manual) Lymphocytes % (Manual) Monocytes % (Manual) Platelet Estimate Hypochromasia (manual) Anisocytosis (manual) Macrocytosis (manual) PT INR APTT D-Dimer, Quantitative Puncture Site pCO2 pO2 HCO3 ABG pH ABG Total CO2 ABG O2 Saturation ABG Base Excess [place]atan Test ABG Potassium Sodium 131 L Chloride 92 L Glucose Lactate Liter Flow Crit Value Called To Crit Value Called By Crit Value Read Back Blood Gas Notified Time Potassium 4.7 Carbon Dioxide 26 Anion Gap 18 BUN 10 Creatinine 0.5 L Est GFR ( Amer) > 60 Est GFR (Non-Af Amer) > 60 POC Glucose (mg/dL) 332 H Random Glucose 347 H D Lactic Acid Calcium 8.9 Magnesium 1.6 Total Bilirubin 1.3 AST 135 H D ALT 191 H Alkaline Phosphatase 406 H Ammonia Total Creatine Kinase 36 L CK-MB (Mass) 4.71 H Troponin I 0.0340 NT-Pro-B Natriuret Pep Total Protein 7.1 Albumin 4.0 Globulin 3.1 Albumin/Globulin Ratio 1.3 Procalcitonin 0.07 L Free T4 TSH 3rd Generation 0.78 Arterial Blood Potassium Urine Color Urine Clarity Urine pH Ur Specific [place] Urine Protein Urine Glucose (UA) Urine Ketones Urine Blood Urine Nitrate Urine Bilirubin Urine Urobilinogen Ur Leukocyte Esterase Urine WBC (Auto) Urine RBC (Auto) Ur Squamous Epith Cells Urine Bacteria Alcohol, Quantitative 07/16/18 07/16/18 07/16/18 08:27 08:27 08:27 WBC RBC Hgb Hct MCV MCH MCHC RDW Plt Count MPV Neut % (Auto) Lymph % (Auto) [place] % (Auto) Eos % (Auto) Baso % (Auto) Neut # (Auto) Lymph # (Auto) [place] # (Auto) Eos # (Auto) Baso # (Auto) Neutrophils % (Manual) Lymphocytes % (Manual) Monocytes % (Manual) Platelet Estimate Hypochromasia (manual) Anisocytosis (manual) Macrocytosis (manual) PT INR APTT D-Dimer, Quantitative 685 H Puncture Site pCO2 pO2 HCO3 ABG pH ABG Total CO2 ABG O2 Saturation ABG Base Excess [place]on[place] Test ABG Potassium Sodium Chloride Glucose Lactate Liter Flow Crit Value Called To Crit Value Called By Crit Value Read Back Blood Gas Notified Time Potassium Carbon Dioxide Anion Gap BUN Creatinine Est GFR ( Amer) Est GFR (Non-Af Amer) POC Glucose (mg/dL) Random Glucose Lactic Acid Calcium Magnesium Total Bilirubin AST ALT Alkaline Phosphatase Ammonia 62 H D Total Creatine Kinase CK-MB (Mass) Troponin I NT-Pro-B Natriuret Pep Total Protein Albumin Globulin Albumin/Globulin Ratio Procalcitonin Free T4 0.99 TSH 3rd Generation Arterial Blood Potassium Urine Color Urine Clarity Urine pH Ur Specific [place] Urine Protein Urine Glucose (UA) Urine Ketones Urine Blood Urine Nitrate Urine Bilirubin Urine Urobilinogen Ur Leukocyte Esterase Urine WBC (Auto) Urine RBC (Auto) Ur Squamous Epith Cells Urine Bacteria Alcohol, Quantitative 07/16/18 07/16/18 07/16/18 08:29 08:47 10:21 WBC 8.4 7.9 RBC 3.71 L 3.61 L Hgb 9.5 L 9.1 L Hct 29.7 L 29.1 L MCV 80.2 D 80.5 MCH 25.6 L 25.3 L MCHC 31.9 L 31.4 L RDW 18.7 H 18.3 H Plt Count 428 H 393 MPV 8.7 8.7 Neut % (Auto) Lymph % (Auto) [place] % (Auto) Eos % (Auto) Baso % (Auto) Neut # (Auto) Lymph # (Auto) [place] # (Auto) Eos # (Auto) Baso # (Auto) Neutrophils % (Manual) Lymphocytes % (Manual) Monocytes % (Manual) Platelet Estimate Hypochromasia (manual) Anisocytosis (manual) Macrocytosis (manual) PT INR APTT D-Dimer, Quantitative Puncture Site pCO2 pO2 HCO3 ABG pH ABG Total CO2 ABG O2 Saturation ABG Base Excess [place]onatan Test ABG Potassium Sodium Chloride Glucose Lactate Liter Flow Crit Value Called To Crit Value Called By Crit Value Read Back Blood Gas Notified Time Potassium Carbon Dioxide Anion Gap BUN Creatinine Est GFR ( Amer) Est GFR (Non-Af Amer) POC Glucose (mg/dL) Random Glucose Lactic Acid 3.9 H Calcium Magnesium Total Bilirubin AST ALT Alkaline Phosphatase Ammonia Total Creatine Kinase CK-MB (Mass) Troponin I NT-Pro-B Natriuret Pep Total Protein Albumin Globulin Albumin/Globulin Ratio Procalcitonin Free T4 TSH 3rd Generation Arterial Blood Potassium Urine Color Urine Clarity Urine pH Ur Specific [place] Urine Protein Urine Glucose (UA) Urine Ketones Urine Blood Urine Nitrate Urine Bilirubin Urine Urobilinogen Ur Leukocyte Esterase Urine WBC (Auto) Urine RBC (Auto) Ur Squamous Epith Cells Urine Bacteria Alcohol, Quantitative 07/16/18 11:24 WBC RBC Hgb Hct MCV MCH MCHC RDW Plt Count MPV Neut % (Auto) Lymph % (Auto) [place] % (Auto) Eos % (Auto) Baso % (Auto) Neut # (Auto) Lymph # (Auto) [place] # (Auto) Eos # (Auto) Baso # (Auto) Neutrophils % (Manual) Lymphocytes % (Manual) Monocytes % (Manual) Platelet Estimate Hypochromasia (manual) Anisocytosis (manual) Macrocytosis (manual) PT INR APTT D-Dimer, Quantitative Puncture Site pCO2 pO2 HCO3 ABG pH ABG Total CO2 ABG O2 Saturation ABG Base Excess [place] Test ABG Potassium Sodium Chloride Glucose Lactate Liter Flow Crit Value Called To Crit Value Called By Crit Value Read Back Blood Gas Notified Time Potassium Carbon Dioxide Anion Gap BUN Creatinine Est GFR ( Amer) Est GFR (Non-Af Amer) POC Glucose (mg/dL) 349 H Random Glucose Lactic Acid Calcium Magnesium Total Bilirubin AST ALT Alkaline Phosphatase Ammonia Total Creatine Kinase CK-MB (Mass) Troponin I NT-Pro-B Natriuret Pep Total Protein Albumin Globulin Albumin/Globulin Ratio Procalcitonin Free T4 TSH 3rd Generation Arterial Blood Potassium Urine Color Urine Clarity Urine pH Ur Specific [place] Urine Protein Urine Glucose (UA) Urine Ketones Urine Blood Urine Nitrate Urine Bilirubin Urine Urobilinogen Ur Leukocyte Esterase Urine WBC (Auto) Urine RBC (Auto) Ur Squamous Epith Cells Urine Bacteria Alcohol, Quantitative Assessment & Plan - Assessment and Plan (Free Text) Assessment: A-flutter: controlled with combination of verapamil + lopressor, continue oral NOAC as per cardiology -Severe Systolic Heart Failure: continue home medications including asa, statin (hold 2nd increase in LFTs), lopressor and ACEi as BP tolerates -COPD: advised to stop smoking, continue duonebs PRN, solumedrol if wheezing starts, possible inhaled steroids -negative balance, daily weights -continue all other treatment Patient remains hemodynamically stable. Please call ICU, if patient's clinical status worsens. - Date & Time Date: 07/16/18 Time: 13:00
[2018-07-16 11:59] LABS: BASO % 1.2 % (0.0-2.0); EOS # 0.1 K/uL (0.0-0.7); LYMPH # 0.3 K/uL (1.0-4.3); LYMPH % 4.1 % (20.0-40.0); MONO # 0.4 K/uL (0.0-0.8); NEUT # 7.1 K/uL (1.8-7.0); NEUT % 89.7 % (50.0-75.0)
[2018-07-16 12:00] LABS: BASO # 0.1 K/uL (0.0-0.2)
[2018-07-16 12:01] LABS: LYMPHOCYTE 4 % (20-40); MONOCYTE 6 % (0-10); NEUTROPHIL 90 % (50-75); NUCLEATED RED BLOOD CELL 2 % (0-0); PLATELET ESTIMATE NORMAL (NORMAL); TOTAL CELLS COUNTED 100
[2018-07-16 12:02] LABS: ANISOCYTOSIS SLIGHT; HYPOCHROMIC SLIGHT; OVALOCYTES SLIGHT; POIKILOCYTOSIS SLIGHT; POLYCHROMIC SLIGHT
[2018-07-16 12:04] LABS: LARGE PLATELETS PRESENT; SPHEROCYTES SLIGHT; TARGET CELLS SLIGHT; TEARDROP CELLS SLIGHT
[2018-07-16 12:10] LABS: BARBITURATES, UR NEGATIVE (NEGATIVE); BENZODIAZEPINES, UR NEGATIVE (NEGATIVE); OPIATES, UR NEGATIVE (NEGATIVE); PHENCYCLIDINE, UR NEGATIVE (NEGATIVE)
[2018-07-16] MEDS ORDERED: Pantoprazole 20 mg EC Tab PO SCH (14:45)
--- NOTE | 2018-07-16 16:41 | RAD ---
Date of service: 07/15/2018 PROCEDURE: CHEST RADIOGRAPH, 1 VIEW HISTORY: SOB COMPARISON: 06/29/2018 FINDINGS: LUNGS: Moderate pulmonary vascular congestion. PLEURA: Blunting of the right costophrenic angle suggestive of small pleural effusion. CARDIOVASCULAR: Mild cardiomegaly. Left-sided AICD is seen in place. OSSEOUS STRUCTURES: No significant abnormalities. VISUALIZED UPPER ABDOMEN: Normal. OTHER FINDINGS: None. IMPRESSION: Moderate pulmonary vascular congestion and mild cardiomegaly.
--- NOTE | 2018-07-16 17:09 | CP.PCM.HP ---
Past Patient History - Infectious Disease Hx of Infectious Diseases: None - Tetanus Immunizations Tetanus Immunization: Unknown - Past Medical History & Family History Past Medical History?: Yes - Past Social History Smoking Status: Current Some Days Smoker - CARDIAC Hx Atrial Fibrillation: Yes Hx Cardia Arrhythmia: Yes Hx Congestive Heart Failure: Yes Hx Hypercholesterolemia: Yes Hx Hypertension: Yes Hx Pacemaker: Yes - PULMONARY Hx Asthma: Yes Hx Chronic Obstructive Pulmonary Disease (COPD): Yes Hx Emphysema: Yes Hx Pneumonia: Yes - NEUROLOGICAL Hx Seizures: Yes - HEENT Hx HEENT Problems: No - RENAL Hx Chronic Kidney Disease: No - ENDOCRINE/METABOLIC Hx Endocrine Disorders: No Hx Diabetes Mellitus Type 2: No - HEMATOLOGICAL/ONCOLOGICAL Hx Blood Disorders: Yes - INTEGUMENTARY Hx Dermatological Problems: No - MUSCULOSKELETAL/RHEUMATOLOGICAL Hx Falls: No - GASTROINTESTINAL Hx Gastrointestinal Disorders: No - GENITOURINARY/GYNECOLOGICAL Hx Genitourinary Disorders: No - PSYCHIATRIC Hx Depression: Yes Hx Substance Use: Yes - SURGICAL HISTORY Hx Coronary Artery Bypass Graft: Yes (double) Hx Coronary Stent: Yes (4) - ANESTHESIA Hx Anesthesia: Yes (denied) Hx Anesthesia Reactions: No Hx Malignant Hyperthermia: No Meds Allergies/Adverse Reactions: Allergies Allergy/AdvReac Type Severity Reaction Status Date / Time No Known Allergies Allergy Verified 06/29/18 00:44 Physical Exam - Constitutional Appears: Well - Head Exam Head Exam: ATRAUMATIC, NORMAL INSPECTION, NORMOCEPHALIC - Eye Exam Eye Exam: EOMI, Normal appearance, PERRL Pupil Exam: NORMAL ACCOMODATION, PERRL - ENT Exam ENT Exam: Mucous Membranes Moist, Normal Exam - Neck Exam Neck exam: Positive for: Normal Inspection - Respiratory Exam Respiratory Exam: Decreased Breath Sounds - Cardiovascular Exam Cardiovascular Exam: REGULAR RHYTHM, +S1, +S2 - GI/Abdominal Exam GI & Abdominal Exam: Diminished Bowel Sounds, Soft - Rectal Exam Rectal Exam: Deferred - Neurological Exam Neurological exam: Oriented x3 Results - Vital Signs Recent Vital Signs: Last Vital Signs Temp 98 F 07/16/18 16:00 Pulse 91 H 07/16/18 16:39 Resp 20 07/16/18 16:00 BP 154/81 H 07/16/18 16:00 Pulse Ox 96 07/16/18 16:00 - Labs Result Diagrams: 07/16/18 10:21 07/16/18 08:27 Labs: Laboratory Results - last 24 hr 07/15/18 07/15/18 07/15/18 20:15 20:24 20:24 WBC 10.2 D RBC 3.95 L Hgb 10.0 L Hct 32.9 L MCV 83.2 MCH 25.3 L MCHC 30.4 L RDW 18.6 H Plt Count 391 MPV 8.6 Neut % (Auto) 74.3 Lymph % (Auto) 6.1 L [place] % (Auto) 16.5 H Eos % (Auto) 2.0 Baso % (Auto) 1.1 Neut # (Auto) 7.6 H Lymph # (Auto) 0.6 L [place] # (Auto) 1.7 H Eos # (Auto) 0.2 Baso # (Auto) 0.1 Neutrophils % (Manual) 83 H Lymphocytes % (Manual) 8 L Monocytes % (Manual) 9 Nucleated RBC % Platelet Estimate Normal Large Platelets Polychromasia Hypochromasia (manual) Slight Poikilocytosis (manual Anisocytosis (manual) Slight Macrocytosis (manual) Slight Spherocytes Target Cells Tear Drop Cells Ovalocytes PT 10.9 INR 1.0 APTT 27.5 D-Dimer, Quantitative Puncture Site Artery pCO2 46 H pO2 141 H HCO3 23.5 ABG pH 7.33 L ABG Total CO2 25.7 ABG O2 Saturation 95.9 ABG Base Excess -1.9 Yonatan Test Pos ABG Potassium 3.5 L Sodium 139.0 Chloride 102.0 Glucose 116 H Lactate 5.9 H* Liter Flow 5.0 Crit Value Called To Rosalind acosta Crit Value 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 Crit Value Read Back Y Blood Gas Notified Time 2018 Potassium Carbon Dioxide Anion Gap BUN Creatinine Est GFR ( Amer) Est GFR (Non-Af Amer) POC Glucose (mg/dL) Random Glucose Lactic Acid Calcium Magnesium Total Bilirubin AST ALT Alkaline Phosphatase Ammonia Total Creatine Kinase CK-MB (Mass) Troponin I NT-Pro-B Natriuret Pep Total Protein Albumin Globulin Albumin/Globulin Ratio Procalcitonin Free T4 TSH 3rd Generation Arterial Blood Potassium 3.5 L Urine Color Urine Clarity Urine pH Ur Specific [place] Urine Protein Urine Glucose (UA) Urine Ketones Urine Blood Urine Nitrate Urine Bilirubin Urine Urobilinogen Ur Leukocyte Esterase Urine WBC (Auto) Urine RBC (Auto) Ur Squamous Epith Cells Urine Bacteria Urine Opiates Screen Urine Methadone Screen Ur Barbiturates Screen Ur Phencyclidine Scrn Ur Amphetamines Screen U Benzodiazepines Scrn U Oth Cocaine Metabols U Cannabinoids Screen Alcohol, Quantitative 07/15/18 07/15/18 07/16/18 20:24 21:33 06:37 WBC RBC Hgb Hct MCV MCH MCHC RDW Plt Count MPV Neut % (Auto) Lymph % (Auto) [place] % (Auto) Eos % (Auto) Baso % (Auto) Neut # (Auto) Lymph # (Auto) [place] # (Auto) Eos # (Auto) Baso # (Auto) Neutrophils % (Manual) Lymphocytes % (Manual) Monocytes % (Manual) Nucleated RBC % Platelet Estimate Large Platelets Polychromasia Hypochromasia (manual) Poikilocytosis (manual Anisocytosis (manual) Macrocytosis (manual) Spherocytes Target Cells Tear Drop Cells Ovalocytes PT INR APTT D-Dimer, Quantitative Puncture Site pCO2 pO2 HCO3 ABG pH ABG Total CO2 ABG O2 Saturation ABG Base Excess Yonatan Test ABG Potassium Sodium 135 Chloride 99 Glucose Lactate Liter Flow Crit Value Called To Crit Value Called By Crit Value Read Back Blood Gas Notified Time Potassium 4.8 Carbon Dioxide 25 Anion Gap 17 BUN 9 Creatinine 0.6 L Est GFR ( Amer) > 60 Est GFR (Non-Af Amer) > 60 POC Glucose (mg/dL) 355 H Random Glucose 147 H Lactic Acid Calcium 8.9 Magnesium Total Bilirubin 1.0 AST 179 H D ALT 199 H Alkaline Phosphatase 381 H Ammonia Total Creatine Kinase CK-MB (Mass) Troponin I 0.0270 NT-Pro-B Natriuret Pep 1340 H Total Protein 7.7 Albumin 4.2 Globulin 3.5 Albumin/Globulin Ratio 1.2 Procalcitonin Free T4 TSH 3rd Generation Arterial Blood Potassium Urine Color Straw Urine Clarity Clear Urine pH 7.0 Ur Specific [place] 1.004 Urine Protein Negative Urine Glucose (UA) Normal Urine Ketones Negative Urine Blood Negative Urine Nitrate Negative Urine Bilirubin Negative Urine Urobilinogen Normal Ur Leukocyte Esterase Neg Urine WBC (Auto) < 1 Urine RBC (Auto) < 1 Ur Squamous Epith Cells 2 Urine Bacteria Rare Urine Opiates Screen Urine Methadone Screen Ur Barbiturates Screen Ur Phencyclidine Scrn Ur Amphetamines Screen U Benzodiazepines Scrn U Oth Cocaine Metabols U Cannabinoids Screen Alcohol, Quantitative 257 H 07/16/18 07/16/18 07/16/18 08:02 08:27 08:27 WBC RBC Hgb Hct MCV MCH MCHC RDW Plt Count MPV Neut % (Auto) Lymph % (Auto) [place] % (Auto) Eos % (Auto) Baso % (Auto) Neut # (Auto) Lymph # (Auto) [place] # (Auto) Eos # (Auto) Baso # (Auto) Neutrophils % (Manual) Lymphocytes % (Manual) Monocytes % (Manual) Nucleated RBC % Platelet Estimate Large Platelets Polychromasia Hypochromasia (manual) Poikilocytosis (manual Anisocytosis (manual) Macrocytosis (manual) Spherocytes Target Cells Tear Drop Cells Ovalocytes PT INR APTT D-Dimer, Quantitative Puncture Site pCO2 pO2 HCO3 ABG pH ABG Total CO2 ABG O2 Saturation ABG Base Excess Yonatan Test ABG Potassium Sodium 131 L Chloride 92 L Glucose Lactate Liter Flow Crit Value Called To Crit Value Called By Crit Value Read Back Blood Gas Notified Time Potassium 4.7 Carbon Dioxide 26 Anion Gap 18 BUN 10 Creatinine 0.5 L Est GFR ( Amer) > 60 Est GFR (Non-Af Amer) > 60 POC Glucose (mg/dL) 332 H Random Glucose 347 H D Lactic Acid Calcium 8.9 Magnesium 1.6 Total Bilirubin 1.3 AST 135 H D ALT 191 H Alkaline Phosphatase 406 H Ammonia Total Creatine Kinase 36 L CK-MB (Mass) 4.71 H Troponin I 0.0340 NT-Pro-B Natriuret Pep Total Protein 7.1 Albumin 4.0 Globulin 3.1 Albumin/Globulin Ratio 1.3 Procalcitonin 0.07 L Free T4 TSH 3rd Generation 0.78 Arterial Blood Potassium Urine Color Urine Clarity Urine pH Ur Specific [place] Urine Protein Urine Glucose (UA) Urine Ketones Urine Blood Urine Nitrate Urine Bilirubin Urine Urobilinogen Ur Leukocyte Esterase Urine WBC (Auto) Urine RBC (Auto) Ur Squamous Epith Cells Urine Bacteria Urine Opiates Screen Urine Methadone Screen Ur Barbiturates Screen Ur Phencyclidine Scrn Ur Amphetamines Screen U Benzodiazepines Scrn U Oth Cocaine Metabols U Cannabinoids Screen Alcohol, Quantitative 07/16/18 07/16/18 07/16/18 08:27 08:27 08:27 WBC RBC Hgb Hct MCV MCH MCHC RDW Plt Count MPV Neut % (Auto) Lymph % (Auto) [place] % (Auto) Eos % (Auto) Baso % (Auto) Neut # (Auto) Lymph # (Auto) [place] # (Auto) Eos # (Auto) Baso # (Auto) Neutrophils % (Manual) Lymphocytes % (Manual) Monocytes % (Manual) Nucleated RBC % Platelet Estimate Large Platelets Polychromasia Hypochromasia (manual) Poikilocytosis (manual Anisocytosis (manual) Macrocytosis (manual) Spherocytes Target Cells Tear Drop Cells Ovalocytes PT INR APTT D-Dimer, Quantitative 685 H Puncture Site pCO2 pO2 HCO3 ABG pH ABG Total CO2 ABG O2 Saturation ABG Base Excess Yonatan Test ABG Potassium Sodium Chloride Glucose Lactate Liter Flow Crit Value Called To Crit Value Called By Crit Value Read Back Blood Gas Notified Time Potassium Carbon Dioxide Anion Gap BUN Creatinine Est GFR ( Amer) Est GFR (Non-Af Amer) POC Glucose (mg/dL) Random Glucose Lactic Acid Calcium Magnesium Total Bilirubin AST ALT Alkaline Phosphatase Ammonia 62 H D Total Creatine Kinase CK-MB (Mass) Troponin I NT-Pro-B Natriuret Pep Total Protein Albumin Globulin Albumin/Globulin Ratio Procalcitonin Free T4 0.99 TSH 3rd Generation Arterial Blood Potassium Urine Color Urine Clarity Urine pH Ur Specific [place] Urine Protein Urine Glucose (UA) Urine Ketones Urine Blood Urine Nitrate Urine Bilirubin Urine Urobilinogen Ur Leukocyte Esterase Urine WBC (Auto) Urine RBC (Auto) Ur Squamous Epith Cells Urine Bacteria Urine Opiates Screen Urine Methadone Screen Ur Barbiturates Screen Ur Phencyclidine Scrn Ur Amphetamines Screen U Benzodiazepines Scrn U Oth Cocaine Metabols U Cannabinoids Screen Alcohol, Quantitative 07/16/18 07/16/18 07/16/18 08:29 08:47 10:21 WBC 8.4 7.9 RBC 3.71 L 3.61 L Hgb 9.5 L 9.1 L Hct 29.7 L 29.1 L MCV 80.2 D 80.5 MCH 25.6 L 25.3 L MCHC 31.9 L 31.4 L RDW 18.7 H 18.3 H Plt Count 428 H 393 MPV 8.7 8.7 Neut % (Auto) 89.7 H Lymph % (Auto) 4.1 L [place] % (Auto) 5.0 Eos % (Auto) 0.0 Baso % (Auto) 1.2 Neut # (Auto) 7.1 H Lymph # (Auto) 0.3 L [place] # (Auto) 0.4 Eos # (Auto) 0.1 Baso # (Auto) 0.1 Neutrophils % (Manual) 90 H Lymphocytes % (Manual) 4 L Monocytes % (Manual) 6 Nucleated RBC % 2 H Platelet Estimate Normal Large Platelets Present Polychromasia Slight Hypochromasia (manual) Slight Poikilocytosis (manual Slight Anisocytosis (manual) Slight Macrocytosis (manual) Spherocytes Slight Target Cells Slight Tear Drop Cells Slight Ovalocytes Slight PT INR APTT D-Dimer, Quantitative Puncture Site pCO2 pO2 HCO3 ABG pH ABG Total CO2 ABG O2 Saturation ABG Base Excess Yonatan Test ABG Potassium Sodium Chloride Glucose Lactate Liter Flow Crit Value Called To Crit Value Called By Crit Value Read Back Blood Gas Notified Time Potassium Carbon Dioxide Anion Gap BUN Creatinine Est GFR ( Amer) Est GFR (Non-Af Amer) POC Glucose (mg/dL) Random Glucose Lactic Acid 3.9 H Calcium Magnesium Total Bilirubin AST ALT Alkaline Phosphatase Ammonia Total Creatine Kinase CK-MB (Mass) Troponin I NT-Pro-B Natriuret Pep Total Protein Albumin Globulin Albumin/Globulin Ratio Procalcitonin Free T4 TSH 3rd Generation Arterial Blood Potassium Urine Color Urine Clarity Urine pH Ur Specific [place] Urine Protein Urine Glucose (UA) Urine Ketones Urine Blood Urine Nitrate Urine Bilirubin Urine Urobilinogen Ur Leukocyte Esterase Urine WBC (Auto) Urine RBC (Auto) Ur Squamous Epith Cells Urine Bacteria Urine Opiates Screen Urine Methadone Screen Ur Barbiturates Screen Ur Phencyclidine Scrn Ur Amphetamines Screen U Benzodiazepines Scrn U Oth Cocaine Metabols U Cannabinoids Screen Alcohol, Quantitative 07/16/18 07/16/18 11:24 11:25 WBC RBC Hgb Hct MCV MCH MCHC RDW Plt Count MPV Neut % (Auto) Lymph % (Auto) [place] % (Auto) Eos % (Auto) Baso % (Auto) Neut # (Auto) Lymph # (Auto) [place] # (Auto) Eos # (Auto) Baso # (Auto) Neutrophils % (Manual) Lymphocytes % (Manual) Monocytes % (Manual) Nucleated RBC % Platelet Estimate Large Platelets Polychromasia Hypochromasia (manual) Poikilocytosis (manual Anisocytosis (manual) Macrocytosis (manual) Spherocytes Target Cells Tear Drop Cells Ovalocytes PT INR APTT D-Dimer, Quantitative Puncture Site pCO2 pO2 HCO3 ABG pH ABG Total CO2 ABG O2 Saturation ABG Base Excess Yonatan Test ABG Potassium Sodium Chloride Glucose Lactate Liter Flow Crit Value Called To Crit Value Called By Crit Value Read Back Blood Gas Notified Time Potassium Carbon Dioxide Anion Gap BUN Creatinine Est GFR ( Amer) Est GFR (Non-Af Amer) POC Glucose (mg/dL) 349 H Random Glucose Lactic Acid Calcium Magnesium Total Bilirubin AST ALT Alkaline Phosphatase Ammonia Total Creatine Kinase CK-MB (Mass) Troponin I NT-Pro-B Natriuret Pep Total Protein Albumin Globulin Albumin/Globulin Ratio Procalcitonin Free T4 TSH 3rd Generation Arterial Blood Potassium Urine Color Urine Clarity Urine pH Ur Specific [place] Urine Protein Urine Glucose (UA) Urine Ketones Urine Blood Urine Nitrate Urine Bilirubin Urine Urobilinogen Ur Leukocyte Esterase Urine WBC (Auto) Urine RBC (Auto) Ur Squamous Epith Cells Urine Bacteria Urine Opiates Screen Negative Urine Methadone Screen Negative Ur Barbiturates Screen Negative Ur Phencyclidine Scrn Negative Ur Amphetamines Screen Negative U Benzodiazepines Scrn Negative U Oth Cocaine Metabols Negative U Cannabinoids Screen Positive H Alcohol, Quantitative
[2018-07-16] MEDS: Digoxin 250 mcg (0.25 mg) Tab PO SCH (17:21)
--- NOTE | 2018-07-16 17:24 | RAD ---
Date of service: 07/16/2018 HISTORY: shortness of breath COMPARISON: 07/15/2018 TECHNIQUE: 1 view obtained. FINDINGS: LUNGS: [id number] pulmonary vascular congestion is noted. PLEURA: Suspicious for small bilateral pleural effusion. CARDIOVASCULAR: Small foci of aortic atherosclerotic calcification present. Normal cardiac size. Left-sided AICD is seen in place OSSEOUS STRUCTURES: No significant abnormalities. VISUALIZED UPPER ABDOMEN: Normal. OTHER FINDINGS: None. IMPRESSION: [id number] pulmonary vascular congestion.
[2018-07-17] MEDS: Albuterol-Ipratrop 3 mg / 0.5 (3 ml) UD INH SCH ×4 (01:27→19:51)
[2018-07-17] MEDS: MethylPREDNISolone 40 mg Vial IVP SCH ×3 (06:38→21:21)
[2018-07-17] MEDS: Pantoprazole 40 mg EC Tab PO SCH (10:06)
[2018-07-17] MEDS: Digoxin 250 mcg (0.25 mg) Tab PO SCH (17:10)
--- NOTE | 2018-07-17 17:28 | CP.PCM.PN ---
Subjective - Date & Time of Evaluation Date of Evaluation: 07/17/18 Time of Evaluation: 11:40 - Subjective Subjective: patient seen today no nausea no vomiting no dizziness no diarrhea no fever no shortness of breath Objective - Vital Signs/Intake and Output Vital Signs (last 24 hours): Temp Pulse Resp BP Pulse Ox 98.1 F 93 H 20 134/80 99 07/17/18 15:18 07/17/18 15:18 07/17/18 15:18 07/17/18 17:11 07/17/18 15:18 - Medications Medications: Current Medications Albuterol/Ipratropium (Duoneb 3 Mg/0.5 Mg (3 Ml) Ud) 3 ml INH RQ6 [facility] Last Admin: 07/17/18 14:35 Dose: 3 ml Apixaban (Eliquis) 5 mg PO BID [facility] Last Admin: 07/17/18 17:11 Dose: 5 mg Aspirin (Aspirin Chewable) 81 mg PO DAILY [facility] Last Admin: 07/17/18 10:06 Dose: 81 mg Carvedilol (Coreg) 6.25 mg PO BID [facility] Last Admin: 07/17/18 17:11 Dose: 6.25 mg Digoxin (Lanoxin) 0.25 mg PO DAILY@1800 [facility] Last Admin: 07/17/18 17:10 Dose: 0.25 mg Furosemide (Lasix) 20 mg IVP BID [facility] Last Admin: 07/17/18 17:11 Dose: 20 mg Ceftriaxone Sodium 1 gm/ (Sodium Chloride) 100 mls @ 100 mls/hr IVPB DAILY [facility]; Protocol Last Admin: 07/17/18 10:13 Dose: 100 mls/hr Levetiracetam (Keppra) 1,000 mg PO BID [facility] Last Admin: 07/17/18 17:10 Dose: 1,000 mg Methylprednisolone (Solu-Medrol) 40 mg IVP Q8 [facility] Last Admin: 07/17/18 13:41 Dose: 40 mg Montelukast Sodium (Singulair) 10 mg PO DAILY [facility] Last Admin: 07/17/18 10:06 Dose: 10 mg Pantoprazole Sodium (Protonix Ec Tab) 40 mg PO DAILY [facility] Last Admin: 07/17/18 10:06 Dose: 40 mg Rosuvastatin Calcium (Crestor) 5 mg PO HS [facility] Last Admin: 05/26/19 21:19 Dose: 5 mg Spironolactone (Aldactone) 25 mg PO BID [facility] Last Admin: 07/17/18 17:11 Dose: 25 mg Tamsulosin HCl (Flomax) 0.4 mg PO DAILY [facility] Last Admin: 07/17/18 10:06 Dose: 0.4 mg Temazepam (Restoril) 30 mg PO HS PRN PRN Reason: Insomnia Last Admin: 07/16/18 21:19 Dose: 30 mg Thiamine HCl (Vitamin B1 Tab) 100 mg PO DAILY [facility] Last Admin: 07/17/18 10:06 Dose: 100 mg - Labs Labs: 07/16/18 10:21 07/16/18 08:27 PT 10.9 SECONDS (9.7-12.2) 07/15/18 20:24 INR 1.0 07/15/18 20:24 APTT 27.5 SECONDS (21-34) 07/15/18 20:24 - Constitutional Appears: Well - Head Exam Head Exam: ATRAUMATIC, NORMAL INSPECTION, NORMOCEPHALIC - Eye Exam Eye Exam: EOMI, Normal appearance, PERRL Pupil Exam: NORMAL ACCOMODATION, PERRL - ENT Exam ENT Exam: Mucous Membranes Moist, Normal Exam - Neck Exam Neck Exam: Full ROM, Normal Inspection. absent: Lymphadenopathy - Respiratory Exam Respiratory Exam: Decreased Breath Sounds - Cardiovascular Exam Cardiovascular Exam: REGULAR RHYTHM, +S1, +S2 - GI/Abdominal Exam GI & Abdominal Exam: Soft, Diminished Bowel Sounds - Rectal Exam Rectal Exam: Deferred - Neurological Exam Neurological Exam: Oriented x3 Assessment and Plan - Assessment and Plan (Free Text) Plan: plan discussed with patient moderate complexity of care labs reivewed medications reviewed vitals reviewed aldactone asprin chewable ceftriaxone sodium coreg crestor duoneb eliquis flomax keppra lanoxin lasix protonix ec tab restoril singulair solu-mderol vitamin B1 tab
[2018-07-18] MEDS: Albuterol-Ipratrop 3 mg / 0.5 (3 ml) UD INH SCH ×4 (01:12→19:42)
[2018-07-18] MEDS: MethylPREDNISolone 40 mg Vial IVP SCH ×3 (05:37→22:02)
[2018-07-18] MEDS: Pantoprazole 40 mg EC Tab PO SCH (09:26)
--- NOTE | 2018-07-18 10:13 | CP.PCM.CON ---
History of Present Illness - History of Present Illness History of Present Illness: Mr Fitzgerald is a 58 years old male with past medical history of congestive heart failure with reduced ejection fraction (EF 25-30%), hypertension, hypercholesterolemia, chronic atrial fibrillation, cardiac arrhythmia, depre ssion, seizure, asthma and chronic obstructive pulmonary disease. ASHD s/p MVR and CABG AFIB chronic parox AICD placed for severe chronci systolic HF He presented with SOB/COPD had [employer] for rapid afib/flutter and improved: ICU transfer was suggested but cancelled due to improvement. Currently: No CP or SOB, no volume overload, distant breath sounds without wheezes. No fevers, N/V or abdominal pain. Review of Systems - Review of Systems All systems: reviewed and no additional remarkable complaints except Past Patient History - Infectious Disease Hx of Infectious Diseases: None - Tetanus Immunizations Tetanus Immunization: Unknown - Past Medical History & Family History Past Medical History?: Yes - Past Social History Smoking Status: Current Some Days Smoker - CARDIAC Hx Atrial Fibrillation: Yes Hx Cardia Arrhythmia: Yes Hx Congestive Heart Failure: Yes Hx Hypercholesterolemia: Yes Hx Hypertension: Yes Hx Pacemaker: Yes - PULMONARY Hx Asthma: Yes Hx Chronic Obstructive Pulmonary Disease (COPD): Yes Hx Emphysema: Yes Hx Pneumonia: Yes - NEUROLOGICAL Hx Seizures: Yes - HEENT Hx HEENT Problems: No - RENAL Hx Chronic Kidney Disease: No - ENDOCRINE/METABOLIC Hx Endocrine Disorders: No Hx Diabetes Mellitus Type 2: No - HEMATOLOGICAL/ONCOLOGICAL Hx Blood Disorders: Yes - INTEGUMENTARY Hx Dermatological Problems: No - MUSCULOSKELETAL/RHEUMATOLOGICAL Hx Falls: No - GASTROINTESTINAL Hx Gastrointestinal Disorders: No - GENITOURINARY/GYNECOLOGICAL Hx Genitourinary Disorders: No - PSYCHIATRIC Hx Depression: Yes Hx Substance Use: Yes - SURGICAL HISTORY Hx Coronary Artery Bypass Graft: Yes (double) Hx Coronary Stent: Yes (4) - ANESTHESIA Hx Anesthesia: Yes (denied) Hx Anesthesia Reactions: No Hx Malignant Hyperthermia: No Meds Allergies/Adverse Reactions: Allergies Allergy/AdvReac Type Severity Reaction Status Date / Time No Known Allergies Allergy Verified 06/29/18 00:44 - Medications Medications: Current Medications Albuterol/Ipratropium (Duoneb 3 Mg/0.5 Mg (3 Ml) Ud) 3 ml INH RQ6 [facility] Last Admin: 07/18/18 08:07 Dose: 3 ml Apixaban (Eliquis) 5 mg PO BID [facility] Last Admin: 07/18/18 09:27 Dose: 5 mg Aspirin (Aspirin Chewable) 81 mg PO DAILY [facility] Last Admin: 07/18/18 09:27 Dose: 81 mg Carvedilol (Coreg) 6.25 mg PO BID [facility] Last Admin: 07/18/18 09:27 Dose: 6.25 mg Digoxin (Lanoxin) 0.25 mg PO DAILY@1800 [facility] Last Admin: 07/17/18 17:10 Dose: 0.25 mg Furosemide (Lasix) 20 mg IVP BID [facility] Last Admin: 07/18/18 09:26 Dose: 20 mg Ceftriaxone Sodium 1 gm/ (Sodium Chloride) 100 mls @ 100 mls/hr IVPB DAILY [facility]; Protocol Last Admin: 07/18/18 09:33 Dose: 100 mls/hr Levetiracetam (Keppra) 1,000 mg PO BID [facility] Last Admin: 07/18/18 09:27 Dose: 1,000 mg Methylprednisolone (Solu-Medrol) 40 mg IVP Q8 [facility] Last Admin: 07/18/18 05:37 Dose: 40 mg Montelukast Sodium (Singulair) 10 mg PO DAILY [facility] Last Admin: 07/18/18 09:27 Dose: 10 mg Pantoprazole Sodium (Protonix Ec Tab) 40 mg PO DAILY [facility] Last Admin: 07/18/18 09:26 Dose: 40 mg Rosuvastatin Calcium (Crestor) 5 mg PO HS [facility] Last Admin: 07/17/18 21:21 Dose: 5 mg Spironolactone (Aldactone) 25 mg PO BID [facility] Last Admin: 07/18/18 09:27 Dose: 25 mg Tamsulosin HCl (Flomax) 0.4 mg PO DAILY [facility] Last Admin: 07/18/18 09:27 Dose: 0.4 mg Temazepam (Restoril) 30 mg PO HS PRN PRN Reason: Insomnia Last Admin: 07/17/18 21:21 Dose: 30 mg Thiamine HCl (Vitamin B1 Tab) 100 mg PO DAILY [facility] Last Admin: 07/18/18 09:27 Dose: 100 mg Physical Exam - Constitutional Appears: No Acute Distress - Head Exam Head Exam: ATRAUMATIC, NORMAL INSPECTION, NORMOCEPHALIC - Eye Exam Eye Exam: EOMI, Normal appearance - ENT Exam ENT Exam: Mucous Membranes Moist, Normal Oropharynx - Neck Exam Neck exam: Positive for: Full Rom, Normal Inspection. Negative for: Tenderness - Respiratory Exam Respiratory Exam: Decreased Breath Sounds. absent: Rhonchi, Wheezes - Cardiovascular Exam Cardiovascular Exam: REGULAR RHYTHM, +S1, +S2. absent: Systolic Murmur - GI/Abdominal Exam GI & Abdominal Exam: Soft. absent: Tenderness - Extremities Exam Extremities exam: Negative for: calf tenderness, pedal edema - Neurological Exam Neurological exam: Alert, CN II-XII Intact, Oriented x3 - Psychiatric Exam Psychiatric exam: Normal Affect, Normal Mood - Skin Skin Exam: Normal Color, Warm Results - Vital Signs Recent Vital Signs: Last Vital Signs Temp 97.6 F 07/18/18 08:00 Pulse 94 H 07/18/18 08:16 Resp 20 07/18/18 08:00 BP 169/92 H 07/18/18 09:26 Pulse Ox 97 07/18/18 08:00 - Labs Result Diagrams: 07/16/18 10:21 07/16/18 08:27 Assessment & Plan - Assessment and Plan (Free Text) Assessment: 58 y/o admitted with COPD exacerbation Current status: improved, hemodynamically stable, euvolemic, ASX for CAD echo, cxr and EKG images directly viewed by me Problems: 1. ASHD hx of CABG ASX: cont ASA, coreg, crestor 2. Severe systolic HF by echo 03/2018: cont coreg, aldactone, add ARB, maintain lasix 40mg daily - keep Mg > 2.0, monitor lytes and renal function, titrate CHF meds, low Na/CHF diet - Patient has AICD: no shocks reported - cont to monitor function as outpatient 3. AFIB parox - EKGs show NSR, AFIB with RVR and atrial tachycardia - cont coreg an titrate - cont eliquis - on coreg, digoxin, monitor for bradycardia - PPI appropriate to reduce HASBLED score - monitor for sx's of GI bleed while on RX 4. COPD - improving with inpatient RX 5. hx polysubstance abuse - counseling and supportive care - Date & Time Date: 07/18/18 Time: 10:05
--- NOTE | 2018-07-18 14:18 | CP.PCM.PN ---
Subjective - Date & Time of Evaluation Date of Evaluation: 07/18/18 Time of Evaluation: 09:40 - Subjective Subjective: patient examined today no nausea no vomiting no dizziness no diarrhea no fever no shortness of breath Objective - Vital Signs/Intake and Output Vital Signs (last 24 hours): Temp Pulse Resp BP Pulse Ox 97.6 F 94 H 20 169/92 H 97 07/18/18 08:00 07/18/18 08:16 07/18/18 08:00 07/18/18 09:26 07/18/18 08:00 - Medications Medications: Current Medications Albuterol/Ipratropium (Duoneb 3 Mg/0.5 Mg (3 Ml) Ud) 3 ml INH RQ6 [facility] Last Admin: 07/18/18 13:25 Dose: 3 ml Apixaban (Eliquis) 5 mg PO BID [facility] Last Admin: 07/18/18 09:27 Dose: 5 mg Aspirin (Aspirin Chewable) 81 mg PO DAILY [facility] Last Admin: 07/18/18 09:27 Dose: 81 mg Carvedilol (Coreg) 6.25 mg PO BID [facility] Last Admin: 07/18/18 09:27 Dose: 6.25 mg Digoxin (Lanoxin) 0.25 mg PO DAILY@1800 [facility] Last Admin: 07/17/18 17:10 Dose: 0.25 mg Furosemide (Lasix) 20 mg IVP BID [facility] Last Admin: 07/18/18 09:26 Dose: 20 mg Ceftriaxone Sodium 1 gm/ (Sodium Chloride) 100 mls @ 100 mls/hr IVPB DAILY [facility]; Protocol Last Admin: 07/18/18 09:33 Dose: 100 mls/hr Levetiracetam (Keppra) 1,000 mg PO BID [facility] Last Admin: 07/18/18 09:27 Dose: 1,000 mg Methylprednisolone (Solu-Medrol) 40 mg IVP Q8 [facility] Last Admin: 07/18/18 13:34 Dose: 40 mg Montelukast Sodium (Singulair) 10 mg PO DAILY [facility] Last Admin: 07/18/18 09:27 Dose: 10 mg Pantoprazole Sodium (Protonix Ec Tab) 40 mg PO DAILY [facility] Last Admin: 07/18/18 09:26 Dose: 40 mg Rosuvastatin Calcium (Crestor) 5 mg PO HS [facility] Last Admin: 07/17/18 21:21 Dose: 5 mg Spironolactone (Aldactone) 25 mg PO BID [facility] Last Admin: 07/18/18 09:27 Dose: 25 mg Tamsulosin HCl (Flomax) 0.4 mg PO DAILY [facility] Last Admin: 07/18/18 09:27 Dose: 0.4 mg Temazepam (Restoril) 30 mg PO HS PRN PRN Reason: Insomnia Last Admin: 07/17/18 21:21 Dose: 30 mg Thiamine HCl (Vitamin B1 Tab) 100 mg PO DAILY [facility] Last Admin: 07/18/18 09:27 Dose: 100 mg - Labs Labs: 07/16/18 10:21 07/16/18 08:27 PT 10.9 SECONDS (9.7-12.2) 07/15/18 20:24 INR 1.0 07/15/18 20:24 APTT 27.5 SECONDS (21-34) 07/15/18 20:24 - Constitutional Appears: Well - Head Exam Head Exam: ATRAUMATIC, NORMAL INSPECTION, NORMOCEPHALIC - Eye Exam Eye Exam: EOMI, Normal appearance, PERRL Pupil Exam: NORMAL ACCOMODATION, PERRL - ENT Exam ENT Exam: Mucous Membranes Moist, Normal Exam - Neck Exam Neck Exam: Full ROM, Normal Inspection. absent: Lymphadenopathy - Respiratory Exam Respiratory Exam: Decreased Breath Sounds - Cardiovascular Exam Cardiovascular Exam: REGULAR RHYTHM, +S1, +S2 - GI/Abdominal Exam GI & Abdominal Exam: Soft, Diminished Bowel Sounds - Rectal Exam Rectal Exam: Deferred - Neurological Exam Neurological Exam: Oriented x3 Assessment and Plan - Assessment and Plan (Free Text) Plan: plan discussed with patient moderate complexity of care aldactone aspirin chewable ceftriaxone sodium coreg crestor duoneb eliquis flomax keppra lanoxin lasix protonix ec tab restoril singulair solu-medrol vitamin b1 medications reviewed labs reviewed vitals reviewed
[2018-07-18] MEDS ORDERED: (Novolin R) Insulin Human Regular 100 units/ml vial SC ONE (16:29)
[2018-07-18] MEDS ORDERED: Glucagon Recombinant 1 mg Inj IM PRN (17:18)
[2018-07-18] MEDS ORDERED: Dextrose 50% SYRINGE Inj (50 ml) IV PRN (17:18)
--- NOTE | 2018-07-18 17:47 | CP.PCM.PN ---
Subjective - Date & Time of Evaluation Date of Evaluation: 07/18/18 Time of Evaluation: 17:00 - Subjective Subjective: Patient seen and examined Still complaining of shortness of breath Afebrile Sitting comfortably Objective - Vital Signs/Intake and Output Vital Signs (last 24 hours): Temp Pulse Resp BP Pulse Ox 97.4 F L 95 H 20 147/75 97 07/18/18 15:20 07/18/18 15:20 07/18/18 15:20 07/18/18 15:20 07/18/18 15:20 - Medications Medications: Current Medications Albuterol/Ipratropium (Duoneb 3 Mg/0.5 Mg (3 Ml) Ud) 3 ml INH RQ6 [facility] Last Admin: 07/18/18 13:25 Dose: 3 ml Apixaban (Eliquis) 5 mg PO BID [facility] Last Admin: 07/18/18 09:27 Dose: 5 mg Aspirin (Aspirin Chewable) 81 mg PO DAILY [facility] Last Admin: 07/18/18 09:27 Dose: 81 mg Carvedilol (Coreg) 6.25 mg PO BID [facility] Last Admin: 07/18/18 09:27 Dose: 6.25 mg Dextrose (Dextrose 50% Inj) 0 ml IV STAT PRN; Protocol PRN Reason: Hypoglycemia Protocol Dextrose (Glutose 15) 0 gm PO ONCE PRN; Protocol PRN Reason: Hypoglycemia Protocol Digoxin (Lanoxin) 0.25 mg PO DAILY@1800 [facility] Last Admin: 07/17/18 17:10 Dose: 0.25 mg Furosemide (Lasix) 20 mg IVP BID [facility] Last Admin: 07/18/18 09:26 Dose: 20 mg Glucagon (Glucagen Diagnostic Kit) 0 mg IM STAT PRN; Protocol PRN Reason: Hypoglycemia Protocol Ceftriaxone Sodium 1 gm/ (Sodium Chloride) 100 mls @ 100 mls/hr IVPB DAILY [facility]; Protocol Last Admin: 07/18/18 09:33 Dose: 100 mls/hr Dextrose (Dextrose 5% In Water 1000 Ml) 1,000 mls @ 0 mls/hr IV .Q0M PRN; Protocol PRN Reason: Hypoglycemia Protocol Insulin Aspart (Novolog) 0 unit SC ACHS [facility]; Protocol Lactulose (Enulose) 20 gm PO HS [facility] Levetiracetam (Keppra) 1,000 mg PO BID [facility] Last Admin: 07/18/18 09:27 Dose: 1,000 mg Methylprednisolone (Solu-Medrol) 40 mg IVP Q8 [facility] Last Admin: 07/18/18 13:34 Dose: 40 mg Montelukast Sodium (Singulair) 10 mg PO DAILY [facility] Last Admin: 07/18/18 09:27 Dose: 10 mg Pantoprazole Sodium (Protonix Ec Tab) 40 mg PO DAILY [facility] Last Admin: 07/18/18 09:26 Dose: 40 mg Rosuvastatin Calcium (Crestor) 5 mg PO HS [facility] Last Admin: 07/17/18 21:21 Dose: 5 mg Spironolactone (Aldactone) 25 mg PO BID [facility] Last Admin: 07/18/18 09:27 Dose: 25 mg Tamsulosin HCl (Flomax) 0.4 mg PO DAILY [facility] Last Admin: 07/18/18 09:27 Dose: 0.4 mg Temazepam (Restoril) 30 mg PO HS PRN PRN Reason: Insomnia Last Admin: 07/17/18 21:21 Dose: 30 mg Thiamine HCl (Vitamin B1 Tab) 100 mg PO DAILY [facility] Last Admin: 07/18/18 09:27 Dose: 100 mg - Labs Labs: 07/16/18 10:21 07/16/18 08:27 PT 10.9 SECONDS (9.7-12.2) 07/15/18 20:24 INR 1.0 07/15/18 20:24 APTT 27.5 SECONDS (21-34) 07/15/18 20:24 - Head Exam Head Exam: ATRAUMATIC, NORMOCEPHALIC - ENT Exam ENT Exam: Mucous Membranes Moist - Neck Exam Neck Exam: Normal Inspection - Respiratory Exam Respiratory Exam: Rhonchi, Wheezes - Cardiovascular Exam Cardiovascular Exam: REGULAR RHYTHM - GI/Abdominal Exam GI & Abdominal Exam: Soft, Normal Bowel Sounds - Extremities Exam Extremities Exam: Normal Inspection - Neurological Exam Neurological Exam: Alert, Oriented x3 Assessment and Plan (1) COPD exacerbation Assessment & Plan: Continue with nebulizer treatment Inhaled steroids and Brovana Taper IV Solu-Medrol Glycemic control BiPAP as needed Patient advised to quit smoking Lasix Status: Acute (2) CHF exacerbation Status: Acute
[2018-07-18] MEDS: Digoxin 250 mcg (0.25 mg) Tab PO SCH (17:52)
[2018-07-18] MEDS: Budesonide 0.5 mg/2 ml Inhal Susp UD INH SCH (19:42)
[2018-07-18] MEDS: Arformoterol 15 mcg/2 ml Inh Sol INH SCH ×2 (19:42→22:03)
[2018-07-18] MEDS: (Novolog) Insulin Aspart, Recombinant 100 u/ml 10 ml vial SC SCH (21:20)
[2018-07-18] MEDS ORDERED: (Novolin R) Insulin Human Regular 100 units/ml vial SC SCH (22:00)
--- NOTE | 2018-07-19 00:09 | CARD ---
APPROVED REPORT Date of service: 07/15/2018 EKG Measurement Heart [id number] <Conclusion> Sinus tachycardia Nonspecific ST & T wave abnormality Abnormal ECG
[2018-07-19] MEDS: Albuterol-Ipratrop 3 mg / 0.5 (3 ml) UD INH SCH ×4 (01:39→20:03)
[2018-07-19] MEDS: MethylPREDNISolone 40 mg Vial IVP SCH ×3 (05:44→21:36)
[2018-07-19] MEDS: (Novolog) Insulin Aspart, Recombinant 100 u/ml 10 ml vial SC SCH ×2 (06:44→17:21)
--- NOTE | 2018-07-19 07:41 | CARD ---
APPROVED REPORT Date of service: 07/16/2018 EKG Measurement Heart [id number] 128P [id number] <Conclusion> Sinus tachycardia Possible Inferior infarct, age undetermined ST & T wave abnormality, consider lateral ischemia Abnormal ECG
[2018-07-19 07:47] LABS: ALB/GLOB RATIO 1.3 (1.0-2.1); ALBUMIN 3.5 g/dL (3.5-5.0); ALT/SGPT 119 U/L (21-72); AST/SGOT 98 U/L (17-59); BLOOD UREA NITROGEN 23 mg/dL (9-20); CALCIUM 8.7 mg/dl (8.6-10.4); GFR NON-AFRICAN AMERICAN > 60
[2018-07-19] MEDS: Budesonide 0.5 mg/2 ml Inhal Susp UD INH SCH ×2 (07:47→20:03)
[2018-07-19] MEDS: Arformoterol 15 mcg/2 ml Inh Sol INH SCH ×2 (07:47→20:03)
[2018-07-19] MEDS: Pantoprazole 40 mg EC Tab PO SCH (10:20)
--- NOTE | 2018-07-19 11:16 | CP.PCM.PN ---
Subjective - Date & Time of Evaluation Date of Evaluation: 07/19/18 Time of Evaluation: 11:12 - Subjective Subjective: Mild SOB Mild edema in legs'on BIPAP PRN and solumedrol Objective - Vital Signs/Intake and Output Vital Signs (last 24 hours): Temp Pulse Resp BP Pulse Ox 98.6 F 98 H 20 159/84 H 95 07/19/18 07:30 07/19/18 08:16 07/19/18 07:30 07/19/18 10:21 07/19/18 07:30 Intake and Output: 07/19/18 07/19/18 06:59 18:59 Intake Total 720 Output Total 1425 Balance -705 - Medications Medications: Current Medications Albuterol/Ipratropium (Duoneb 3 Mg/0.5 Mg (3 Ml) Ud) 3 ml INH RQ6 [facility] Last Admin: 07/19/18 07:47 Dose: 3 ml Apixaban (Eliquis) 5 mg PO BID [facility] Last Admin: 07/19/18 10:20 Dose: 5 mg Arformoterol Tartrate (Brovana) 15 mcg INH RQ12@1000,2200 [facility] Last Admin: 07/19/18 07:47 Dose: 15 mcg Aspirin (Aspirin Chewable) 81 mg PO DAILY [facility] Last Admin: 07/19/18 10:19 Dose: 81 mg Budesonide (Pulmicort Respules) 0.5 mg INH RQ12 [facility] Last Admin: 07/19/18 07:47 Dose: 0.5 mg Carvedilol (Coreg) 6.25 mg PO BID [facility] Last Admin: 07/19/18 10:20 Dose: 6.25 mg Dextrose (Dextrose 50% Inj) 0 ml IV STAT PRN; Protocol PRN Reason: Hypoglycemia Protocol Dextrose (Glutose 15) 0 gm PO ONCE PRN; Protocol PRN Reason: Hypoglycemia Protocol Digoxin (Lanoxin) 0.25 mg PO DAILY@1800 [facility] Last Admin: 07/18/18 17:52 Dose: 0.25 mg Furosemide (Lasix) 20 mg IVP BID [facility] Last Admin: 07/19/18 10:21 Dose: 20 mg Glucagon (Glucagen Diagnostic Kit) 0 mg IM STAT PRN; Protocol PRN Reason: Hypoglycemia Protocol Ceftriaxone Sodium 1 gm/ (Sodium Chloride) 100 mls @ 100 mls/hr IVPB DAILY [facility]; Protocol Last Admin: 07/19/18 10:19 Dose: 100 mls/hr Dextrose (Dextrose 5% In Water 1000 Ml) 1,000 mls @ 0 mls/hr IV .Q0M PRN; Protocol PRN Reason: Hypoglycemia Protocol Insulin Aspart (Novolog) 0 unit SC ACHS [facility]; Protocol Last Admin: 07/19/18 06:44 Dose: 10 unit Lactulose (Enulose) 20 gm PO HS [facility] Last Admin: 07/18/18 22:04 Dose: 20 gm Levetiracetam (Keppra) 1,000 mg PO BID [facility] Last Admin: 07/19/18 10:20 Dose: 1,000 mg Methylprednisolone (Solu-Medrol) 40 mg IVP Q8 [facility] Last Admin: 07/19/18 05:44 Dose: 40 mg Montelukast Sodium (Singulair) 10 mg PO DAILY [facility] Last Admin: 07/19/18 10:19 Dose: 10 mg Pantoprazole Sodium (Protonix Ec Tab) 40 mg PO DAILY [facility] Last Admin: 07/19/18 10:20 Dose: 40 mg Rosuvastatin Calcium (Crestor) 5 mg PO HS [facility] Last Admin: 07/18/18 22:02 Dose: 5 mg Spironolactone (Aldactone) 25 mg PO BID [facility] Last Admin: 07/19/18 10:20 Dose: 25 mg Tamsulosin HCl (Flomax) 0.4 mg PO DAILY [facility] Last Admin: 07/19/18 10:20 Dose: 0.4 mg Temazepam (Restoril) 30 mg PO HS PRN PRN Reason: Insomnia Last Admin: 07/18/18 22:20 Dose: 30 mg Thiamine HCl (Vitamin B1 Tab) 100 mg PO DAILY [facility] Last Admin: 07/19/18 10:19 Dose: 100 mg - Labs Labs: 07/16/18 10:21 07/19/18 07:17 PT 10.9 SECONDS (9.7-12.2) 07/15/18 20:24 INR 1.0 07/15/18 20:24 APTT 27.5 SECONDS (21-34) 07/15/18 20:24 - Constitutional Appears: No Acute Distress - Head Exam Head Exam: ATRAUMATIC, NORMAL INSPECTION, NORMOCEPHALIC - Eye Exam Eye Exam: EOMI, Normal appearance - ENT Exam ENT Exam: Mucous Membranes Moist, Normal Oropharynx - Neck Exam Neck Exam: Full ROM, Normal Inspection. absent: Tenderness - Respiratory Exam Respiratory Exam: Decreased Breath Sounds (distant B/L). absent: Rhonchi, Wheezes - Cardiovascular Exam Cardiovascular Exam: REGULAR RHYTHM, +S1, +S2. absent: Murmur - GI/Abdominal Exam GI & Abdominal Exam: Soft, Normal Bowel Sounds. absent: Tenderness - Extremities Exam Extremities Exam: Pedal Edema. absent: Calf Tenderness - Neurological Exam Neurological Exam: Alert, Awake, Oriented x3 - Psychiatric Exam Psychiatric exam: Normal Affect, Normal Mood - Skin Skin Exam: Normal Color, Warm Assessment and Plan - Assessment and Plan (Free Text) Assessment: 58 y/o admitted with COPD exacerbation Current status: improved, hemodynamically stable, euvolemic, ASX for CAD echo, cxr and EKG images directly viewed by me Problems: 1. ASHD hx of CABG ASX: cont ASA, coreg, crestor 2. Severe systolic HF by echo 03/2018: cont coreg, aldactone, maintain lasix 40mg daily - keep Mg > 2.0, monitor lytes and renal function, titrate CHF meds, low Na/CHF diet - Patient has AICD: no shocks reported - increase coreg to 12.5 BID and add an ARB - cont to monitor function as outpatient 3. AFIB parox - EKGs show NSR, AFIB with RVR and atrial tachycardia - cont coreg an titrate - cont eliquis - on coreg, digoxin, monitor for bradycardia - PPI appropriate to reduce HASBLED score - monitor for sx's of GI bleed while on RX 4. COPD - improving with inpatient RX - edema likely related to solumedrol 5. hx polysubstance abuse - counseling and supportive care
--- NOTE | 2018-07-19 14:51 | CP.PCM.PN ---
Subjective - Date & Time of Evaluation Date of Evaluation: 07/19/18 Time of Evaluation: 12:00 - Subjective Subjective: Patient seen and examined Still complaining of shortness of breath and cough Afebrile Denies any chest pain Objective - Vital Signs/Intake and Output Vital Signs (last 24 hours): Temp Pulse Resp BP Pulse Ox 98.6 F 98 H 20 159/84 H 95 07/19/18 07:30 07/19/18 08:16 07/19/18 07:30 07/19/18 10:21 07/19/18 07:30 Intake and Output: 07/19/18 07/19/18 06:59 18:59 Intake Total 720 Output Total 1425 Balance -705 - Medications Medications: Current Medications Albuterol/Ipratropium (Duoneb 3 Mg/0.5 Mg (3 Ml) Ud) 3 ml INH RQ6 [facility] Last Admin: 07/19/18 13:10 Dose: 3 ml Apixaban (Eliquis) 5 mg PO BID [facility] Last Admin: 07/19/18 10:20 Dose: 5 mg Arformoterol Tartrate (Brovana) 15 mcg INH RQ12@1000,2200 [facility] Last Admin: 07/19/18 07:47 Dose: 15 mcg Aspirin (Aspirin Chewable) 81 mg PO DAILY [facility] Last Admin: 07/19/18 10:19 Dose: 81 mg Budesonide (Pulmicort Respules) 0.5 mg INH RQ12 [facility] Last Admin: 07/19/18 07:47 Dose: 0.5 mg Carvedilol (Coreg) 6.25 mg PO BID [facility] Last Admin: 07/19/18 10:20 Dose: 6.25 mg Dextrose (Dextrose 50% Inj) 0 ml IV STAT PRN; Protocol PRN Reason: Hypoglycemia Protocol Dextrose (Glutose 15) 0 gm PO ONCE PRN; Protocol PRN Reason: Hypoglycemia Protocol Digoxin (Lanoxin) 0.25 mg PO DAILY@1800 [facility] Last Admin: 07/18/18 17:52 Dose: 0.25 mg Furosemide (Lasix) 20 mg IVP BID [facility] Last Admin: 07/19/18 10:21 Dose: 20 mg Glucagon (Glucagen Diagnostic Kit) 0 mg IM STAT PRN; Protocol PRN Reason: Hypoglycemia Protocol Ceftriaxone Sodium 1 gm/ (Sodium Chloride) 100 mls @ 100 mls/hr IVPB DAILY [facility]; Protocol Last Admin: 07/19/18 10:19 Dose: 100 mls/hr Dextrose (Dextrose 5% In Water 1000 Ml) 1,000 mls @ 0 mls/hr IV .Q0M PRN; Protocol PRN Reason: Hypoglycemia Protocol Insulin Aspart (Novolog) 0 unit SC ACHS [facility]; Protocol Last Admin: 07/19/18 06:44 Dose: 10 unit Lactulose (Enulose) 20 gm PO HS [facility] Last Admin: 07/18/18 22:04 Dose: 20 gm Levetiracetam (Keppra) 1,000 mg PO BID [facility] Last Admin: 07/19/18 10:20 Dose: 1,000 mg Methylprednisolone (Solu-Medrol) 40 mg IVP Q8 [facility] Last Admin: 07/19/18 05:44 Dose: 40 mg Montelukast Sodium (Singulair) 10 mg PO DAILY [facility] Last Admin: 07/19/18 10:19 Dose: 10 mg Pantoprazole Sodium (Protonix Ec Tab) 40 mg PO DAILY [facility] Last Admin: 07/19/18 10:20 Dose: 40 mg Rosuvastatin Calcium (Crestor) 5 mg PO HS [facility] Last Admin: 07/18/18 22:02 Dose: 5 mg Spironolactone (Aldactone) 25 mg PO BID [facility] Last Admin: 07/19/18 10:20 Dose: 25 mg Tamsulosin HCl (Flomax) 0.4 mg PO DAILY [facility] Last Admin: 07/19/18 10:20 Dose: 0.4 mg Temazepam (Restoril) 30 mg PO HS PRN PRN Reason: Insomnia Last Admin: 07/18/18 22:20 Dose: 30 mg Thiamine HCl (Vitamin B1 Tab) 100 mg PO DAILY [facility] Last Admin: 07/19/18 10:19 Dose: 100 mg - Labs Labs: 07/16/18 10:21 07/19/18 07:17 PT 10.9 SECONDS (9.7-12.2) 07/15/18 20:24 INR 1.0 07/15/18 20:24 APTT 27.5 SECONDS (21-34) 07/15/18 20:24 - Head Exam Head Exam: ATRAUMATIC, NORMOCEPHALIC - ENT Exam ENT Exam: Mucous Membranes Moist - Neck Exam Neck Exam: Normal Inspection - Respiratory Exam Respiratory Exam: Rhonchi - Cardiovascular Exam Cardiovascular Exam: REGULAR RHYTHM - GI/Abdominal Exam GI & Abdominal Exam: Soft, Normal Bowel Sounds - Extremities Exam Extremities Exam: Full ROM, Normal Inspection Assessment and Plan (1) COPD exacerbation Assessment & Plan: Continue with nebulizer treatment Taper steroids Continue Brovana and budesonide Status: Acute (2) CHF exacerbation Status: Acute
[2018-07-19] MEDS: Digoxin 250 mcg (0.25 mg) Tab PO SCH (17:20)
--- NOTE | 2018-07-19 20:17 | CP.PCM.PN ---
Subjective - Date & Time of Evaluation Date of Evaluation: 07/19/18 - Subjective Subjective: patient examined today no nausea, no vomiting, no dizziness, no fever, no diarrhea no shortness of breath Objective - Vital Signs/Intake and Output Vital Signs (last 24 hours): Temp Pulse Resp BP Pulse Ox 97.7 F 90 20 134/80 98 07/19/18 15:00 07/19/18 15:20 07/19/18 15:00 07/19/18 18:21 07/19/18 15:00 - Medications Medications: Current Medications Albuterol/Ipratropium (Duoneb 3 Mg/0.5 Mg (3 Ml) Ud) 3 ml INH RQ6 [facility] Last Admin: 07/19/18 20:03 Dose: 3 ml Apixaban (Eliquis) 5 mg PO BID [facility] Last Admin: 07/19/18 17:20 Dose: 5 mg Arformoterol Tartrate (Brovana) 15 mcg INH RQ12@1000,2200 [facility] Last Admin: 07/19/18 07:47 Dose: 15 mcg Aspirin (Aspirin Chewable) 81 mg PO DAILY [facility] Last Admin: 07/19/18 10:19 Dose: 81 mg Budesonide (Pulmicort Respules) 0.5 mg INH RQ12 [facility] Last Admin: 07/19/18 20:03 Dose: 0.5 mg Carvedilol (Coreg) 6.25 mg PO BID [facility] Last Admin: 07/19/18 17:21 Dose: 6.25 mg Dextrose (Dextrose 50% Inj) 0 ml IV STAT PRN; Protocol PRN Reason: Hypoglycemia Protocol Dextrose (Glutose 15) 0 gm PO ONCE PRN; Protocol PRN Reason: Hypoglycemia Protocol Digoxin (Lanoxin) 0.25 mg PO DAILY@1800 [facility] Last Admin: 07/19/18 17:20 Dose: 0.25 mg Furosemide (Lasix) 20 mg IVP BID [facility] Last Admin: 07/19/18 18:21 Dose: 20 mg Glucagon (Glucagen Diagnostic Kit) 0 mg IM STAT PRN; Protocol PRN Reason: Hypoglycemia Protocol Ceftriaxone Sodium 1 gm/ (Sodium Chloride) 100 mls @ 100 mls/hr IVPB DAILY [facility]; Protocol Last Admin: 07/19/18 10:19 Dose: 100 mls/hr Dextrose (Dextrose 5% In Water 1000 Ml) 1,000 mls @ 0 mls/hr IV .Q0M PRN; Protocol PRN Reason: Hypoglycemia Protocol Insulin Aspart (Novolog) 0 unit SC ACHS [facility]; Protocol Last Admin: 07/19/18 17:21 Dose: 8 unit Lactulose (Enulose) 20 gm PO HS [facility] Last Admin: 07/18/18 22:04 Dose: 20 gm Levetiracetam (Keppra) 1,000 mg PO BID [facility] Last Admin: 07/19/18 17:20 Dose: 1,000 mg Methylprednisolone (Solu-Medrol) 20 mg IVP Q8 [facility] Montelukast Sodium (Singulair) 10 mg PO DAILY [facility] Last Admin: 07/19/18 10:19 Dose: 10 mg Pantoprazole Sodium (Protonix Ec Tab) 40 mg PO DAILY [facility] Last Admin: 07/19/18 10:20 Dose: 40 mg Rosuvastatin Calcium (Crestor) 5 mg PO HS [facility] Last Admin: 07/18/18 22:02 Dose: 5 mg Spironolactone (Aldactone) 25 mg PO BID [facility] Last Admin: 07/19/18 17:20 Dose: 25 mg Tamsulosin HCl (Flomax) 0.4 mg PO DAILY [facility] Last Admin: 07/19/18 10:20 Dose: 0.4 mg Temazepam (Restoril) 30 mg PO HS PRN PRN Reason: Insomnia Last Admin: 07/18/18 22:20 Dose: 30 mg Thiamine HCl (Vitamin B1 Tab) 100 mg PO DAILY [facility] Last Admin: 07/19/18 10:19 Dose: 100 mg - Labs Labs: 07/16/18 10:21 07/19/18 07:17 PT 10.9 SECONDS (9.7-12.2) 07/15/18 20:24 INR 1.0 07/15/18 20:24 APTT 27.5 SECONDS (21-34) 07/15/18 20:24 - Constitutional Appears: Well - Head Exam Head Exam: ATRAUMATIC, NORMAL INSPECTION, NORMOCEPHALIC - Eye Exam Eye Exam: EOMI, Normal appearance, PERRL Pupil Exam: NORMAL ACCOMODATION, PERRL - ENT Exam ENT Exam: Mucous Membranes Moist, Normal Exam - Neck Exam Neck Exam: Full ROM, Normal Inspection. absent: Lymphadenopathy - Respiratory Exam Respiratory Exam: Decreased Breath Sounds - Cardiovascular Exam Cardiovascular Exam: REGULAR RHYTHM, +S1, +S2 - GI/Abdominal Exam GI & Abdominal Exam: Soft, Diminished Bowel Sounds - Rectal Exam Rectal Exam: Deferred - Neurological Exam Neurological Exam: Oriented x3 Assessment and Plan - Assessment and Plan (Free Text) Plan: aldactone aspirin chewable ceftriaxone sodium coreg crestor duoneb eliquis flomax keppra lanoxin lasix protonix ec tab restoril singulair solu-medrol vitamin b1 medications reviewed labs reviewed vitals reviewed plan discussed with patient moderate complexity of care
[2018-07-20] MEDS: Albuterol-Ipratrop 3 mg / 0.5 (3 ml) UD INH SCH ×4 (01:14→19:20)
[2018-07-20] MEDS: MethylPREDNISolone 40 mg Vial IVP SCH ×4 (06:21→21:26)
[2018-07-20] MEDS: (Novolog) Insulin Aspart, Recombinant 100 u/ml 10 ml vial SC SCH ×4 (08:19→21:26)
[2018-07-20] MEDS: Budesonide 0.5 mg/2 ml Inhal Susp UD INH SCH ×2 (09:16→19:21)
[2018-07-20] MEDS: Arformoterol 15 mcg/2 ml Inh Sol INH SCH ×2 (09:16→19:20)
[2018-07-20] MEDS: Pantoprazole 40 mg EC Tab PO SCH (10:11)
--- NOTE | 2018-07-20 14:53 | CP.PCM.PN ---
Subjective - Date & Time of Evaluation Date of Evaluation: 07/20/18 - Subjective Subjective: patient seen and examined today no nausea no dizziness no diarrhea no fever no vomiting no shortness of breath Objective - Vital Signs/Intake and Output Vital Signs (last 24 hours): Temp Pulse Resp BP Pulse Ox 98.4 F 78 20 140/80 100 07/20/18 07:20 07/20/18 07:20 07/20/18 07:20 07/20/18 11:17 07/20/18 07:20 Intake and Output: 07/20/18 07/20/18 06:59 18:59 Intake Total 400 580 Output Total 1000 1200 Balance -600 -620 - Medications Medications: Current Medications Albuterol/Ipratropium (Duoneb 3 Mg/0.5 Mg (3 Ml) Ud) 3 ml INH RQ6 [facility] Last Admin: 07/20/18 13:32 Dose: Not Given Apixaban (Eliquis) 5 mg PO BID [facility] Last Admin: 07/20/18 10:10 Dose: 5 mg Arformoterol Tartrate (Brovana) 15 mcg INH RQ12@1000,2200 [facility] Last Admin: 07/20/18 09:16 Dose: Not Given Aspirin (Aspirin Chewable) 81 mg PO DAILY [facility] Last Admin: 07/20/18 10:10 Dose: 81 mg Budesonide (Pulmicort Respules) 0.5 mg INH RQ12 [facility] Last Admin: 07/20/18 09:16 Dose: Not Given Carvedilol (Coreg) 6.25 mg PO BID [facility] Last Admin: 07/20/18 10:10 Dose: 6.25 mg Dextrose (Dextrose 50% Inj) 0 ml IV STAT PRN; Protocol PRN Reason: Hypoglycemia Protocol Dextrose (Glutose 15) 0 gm PO ONCE PRN; Protocol PRN Reason: Hypoglycemia Protocol Digoxin (Lanoxin) 0.25 mg PO DAILY@1800 [facility] Last Admin: 07/19/18 17:20 Dose: 0.25 mg Furosemide (Lasix) 20 mg IVP BID [facility] Last Admin: 07/20/18 11:17 Dose: 20 mg Glucagon (Glucagen Diagnostic Kit) 0 mg IM STAT PRN; Protocol PRN Reason: Hypoglycemia Protocol Ceftriaxone Sodium 1 gm/ (Sodium Chloride) 100 mls @ 100 mls/hr IVPB DAILY [facility]; Protocol Last Admin: 07/20/18 11:16 Dose: 100 mls/hr Dextrose (Dextrose 5% In Water 1000 Ml) 1,000 mls @ 0 mls/hr IV .Q0M PRN; Protocol PRN Reason: Hypoglycemia Protocol Insulin Aspart (Novolog) 0 unit SC ACHS [facility]; Protocol Last Admin: 07/20/18 12:39 Dose: 2 unit Lactulose (Enulose) 20 gm PO HS [facility] Last Admin: 07/19/18 21:36 Dose: 20 gm Levetiracetam (Keppra) 1,000 mg PO BID [facility] Last Admin: 07/20/18 10:10 Dose: 1,000 mg Methylprednisolone (Solu-Medrol) 20 mg IVP Q8 [facility] Last Admin: 07/20/18 13:53 Dose: 20 mg Montelukast Sodium (Singulair) 10 mg PO DAILY [facility] Last Admin: 07/20/18 10:13 Dose: 10 mg Pantoprazole Sodium (Protonix Ec Tab) 40 mg PO DAILY [facility] Last Admin: 07/20/18 10:11 Dose: 40 mg Rosuvastatin Calcium (Crestor) 5 mg PO HS [facility] Last Admin: 07/19/18 21:36 Dose: 5 mg Spironolactone (Aldactone) 25 mg PO BID [facility] Last Admin: 07/20/18 10:11 Dose: 25 mg Tamsulosin HCl (Flomax) 0.4 mg PO DAILY [facility] Last Admin: 07/20/18 10:10 Dose: 0.4 mg Temazepam (Restoril) 30 mg PO HS PRN PRN Reason: Insomnia Last Admin: 07/19/18 22:10 Dose: 30 mg Thiamine HCl (Vitamin B1 Tab) 100 mg PO DAILY [facility] Last Admin: 07/20/18 10:11 Dose: 100 mg - Labs Labs: 07/16/18 10:21 07/19/18 07:17 PT 10.9 SECONDS (9.7-12.2) 07/15/18 20:24 INR 1.0 07/15/18 20:24 APTT 27.5 SECONDS (21-34) 07/15/18 20:24 - Constitutional Appears: Well - Head Exam Head Exam: ATRAUMATIC, NORMAL INSPECTION, NORMOCEPHALIC - Eye Exam Eye Exam: EOMI, Normal appearance, PERRL Pupil Exam: NORMAL ACCOMODATION, PERRL - ENT Exam ENT Exam: Mucous Membranes Moist, Normal Exam - Neck Exam Neck Exam: Full ROM, Normal Inspection. absent: Lymphadenopathy - Respiratory Exam Respiratory Exam: Decreased Breath Sounds - Cardiovascular Exam Cardiovascular Exam: REGULAR RHYTHM, +S1, +S2 - GI/Abdominal Exam GI & Abdominal Exam: Soft, Diminished Bowel Sounds - Rectal Exam Rectal Exam: Deferred - Neurological Exam Neurological Exam: Oriented x3
[2018-07-20] MEDS: Digoxin 250 mcg (0.25 mg) Tab PO SCH (17:21)
[2018-07-20 17:22] VITALS: PULSE 86
--- NOTE | 2018-07-20 17:29 | CP.PCM.PN ---
Subjective - Date & Time of Evaluation Date of Evaluation: 07/20/18 Time of Evaluation: 11:00 - Subjective Subjective: Patient seen and examined Breathing better with less cough and shortness of breath Afebrile Objective - Vital Signs/Intake and Output Vital Signs (last 24 hours): Temp Pulse Resp BP Pulse Ox 97.4 F L 90 20 128/75 97 07/20/18 15:15 07/20/18 15:15 07/20/18 15:15 07/20/18 17:22 07/20/18 15:15 Intake and Output: 07/20/18 07/20/18 06:59 18:59 Intake Total 400 580 Output Total 1000 1200 Balance -600 -620 - Medications Medications: Current Medications Albuterol/Ipratropium (Duoneb 3 Mg/0.5 Mg (3 Ml) Ud) 3 ml INH RQ6 [facility] Last Admin: 07/20/18 13:32 Dose: Not Given Apixaban (Eliquis) 5 mg PO BID [facility] Last Admin: 07/20/18 17:21 Dose: 5 mg Arformoterol Tartrate (Brovana) 15 mcg INH RQ12@1000,2200 [facility] Last Admin: 07/20/18 09:16 Dose: Not Given Aspirin (Aspirin Chewable) 81 mg PO DAILY [facility] Last Admin: 07/20/18 10:10 Dose: 81 mg Budesonide (Pulmicort Respules) 0.5 mg INH RQ12 [facility] Last Admin: 07/20/18 09:16 Dose: Not Given Carvedilol (Coreg) 6.25 mg PO BID [facility] Last Admin: 07/20/18 17:21 Dose: 6.25 mg Dextrose (Dextrose 50% Inj) 0 ml IV STAT PRN; Protocol PRN Reason: Hypoglycemia Protocol Dextrose (Glutose 15) 0 gm PO ONCE PRN; Protocol PRN Reason: Hypoglycemia Protocol Digoxin (Lanoxin) 0.25 mg PO DAILY@1800 [facility] Last Admin: 07/20/18 17:21 Dose: 0.25 mg Furosemide (Lasix) 20 mg IVP BID [facility] Last Admin: 07/20/18 17:22 Dose: 20 mg Glucagon (Glucagen Diagnostic Kit) 0 mg IM STAT PRN; Protocol PRN Reason: Hypoglycemia Protocol Ceftriaxone Sodium 1 gm/ (Sodium Chloride) 100 mls @ 100 mls/hr IVPB DAILY [facility]; Protocol Last Admin: 07/20/18 11:16 Dose: 100 mls/hr Dextrose (Dextrose 5% In Water 1000 Ml) 1,000 mls @ 0 mls/hr IV .Q0M PRN; Protocol PRN Reason: Hypoglycemia Protocol Insulin Aspart (Novolog) 0 unit SC ACHS [facility]; Protocol Last Admin: 07/20/18 17:20 Dose: 6 unit Lactulose (Enulose) 20 gm PO HS [facility] Last Admin: 07/19/18 21:36 Dose: 20 gm Levetiracetam (Keppra) 1,000 mg PO BID [facility] Last Admin: 07/20/18 17:21 Dose: 1,000 mg Methylprednisolone (Solu-Medrol) 20 mg IVP Q8 [facility] Last Admin: 07/20/18 13:53 Dose: 20 mg Montelukast Sodium (Singulair) 10 mg PO DAILY [facility] Last Admin: 07/20/18 10:13 Dose: 10 mg Pantoprazole Sodium (Protonix Ec Tab) 40 mg PO DAILY [facility] Last Admin: 07/20/18 10:11 Dose: 40 mg Rosuvastatin Calcium (Crestor) 5 mg PO HS [facility] Last Admin: 07/19/18 21:36 Dose: 5 mg Spironolactone (Aldactone) 25 mg PO BID [facility] Last Admin: 07/20/18 17:21 Dose: 25 mg Tamsulosin HCl (Flomax) 0.4 mg PO DAILY [facility] Last Admin: 07/20/18 10:10 Dose: 0.4 mg Temazepam (Restoril) 30 mg PO HS PRN PRN Reason: Insomnia Last Admin: 07/19/18 22:10 Dose: 30 mg Thiamine HCl (Vitamin B1 Tab) 100 mg PO DAILY [facility] Last Admin: 07/20/18 10:11 Dose: 100 mg - Labs Labs: 07/16/18 10:21 07/19/18 07:17 PT 10.9 SECONDS (9.7-12.2) 07/15/18 20:24 INR 1.0 07/15/18 20:24 APTT 27.5 SECONDS (21-34) 07/15/18 20:24 - Head Exam Head Exam: ATRAUMATIC, NORMOCEPHALIC - ENT Exam ENT Exam: Mucous Membranes Moist - Neck Exam Neck Exam: Normal Inspection - Cardiovascular Exam Cardiovascular Exam: REGULAR RHYTHM - GI/Abdominal Exam GI & Abdominal Exam: Soft, Normal Bowel Sounds - Extremities Exam Extremities Exam: Full ROM, Normal Inspection Assessment and Plan (1) COPD exacerbation Assessment & Plan: Clinically improving Taper steroids Nebulizer treatment Antibiotics Discharge home in a.m. Status: Acute (2) CHF exacerbation Status: Acute
[2018-07-21] MEDS: Albuterol-Ipratrop 3 mg / 0.5 (3 ml) UD INH SCH (01:35)
[2018-07-21] MEDS ORDERED: (Novolin R) Insulin Human Regular 100 units/ml vial SC ONE (02:27)
[2018-07-21] MEDS: MethylPREDNISolone 40 mg Vial IVP SCH (05:57)
[2018-07-21] MEDS: Budesonide 0.5 mg/2 ml Inhal Susp UD INH SCH (07:18)
[2018-07-21 07:33] VITALS: BP 122/76; TEMP 97.9; O2SAT 97
[2018-07-21] MEDS: (Novolog) Insulin Aspart, Recombinant 100 u/ml 10 ml vial SC SCH ×2 (07:59→11:48)
[2018-07-21] MEDS: Pantoprazole 40 mg EC Tab PO SCH (09:01)
[2018-07-21] MEDS: Arformoterol 15 mcg/2 ml Inh Sol INH SCH (09:18)
--- NOTE | 2018-07-21 11:17 | CP.PCM.PN ---
Subjective - Date & Time of Evaluation Date of Evaluation: 07/21/18 Time of Evaluation: 08:00 - Subjective Subjective: Patient seen and examined Lying comfortably in no distress Complaining of cough Clinically much improved Afebrile Objective - Vital Signs/Intake and Output Vital Signs (last 24 hours): Temp Pulse Resp BP Pulse Ox 97.9 F 90 20 122/76 97 07/21/18 07:15 07/21/18 08:04 07/21/18 07:15 07/21/18 09:00 07/21/18 07:15 - Medications Medications: Current Medications Apixaban (Eliquis) 5 mg PO BID [facility] Last Admin: 07/21/18 09:01 Dose: 5 mg Arformoterol Tartrate (Brovana) 15 mcg INH RQ12@1000,2200 [facility] Last Admin: 07/21/18 09:18 Dose: Not Given Aspirin (Aspirin Chewable) 81 mg PO DAILY [facility] Last Admin: 07/21/18 09:01 Dose: 81 mg Budesonide (Pulmicort Respules) 0.5 mg INH RQ12 [facility] Last Admin: 07/21/18 07:18 Dose: Not Given Carvedilol (Coreg) 6.25 mg PO BID [facility] Last Admin: 07/21/18 09:01 Dose: 6.25 mg Dextrose (Dextrose 50% Inj) 0 ml IV STAT PRN; Protocol PRN Reason: Hypoglycemia Protocol Dextrose (Glutose 15) 0 gm PO ONCE PRN; Protocol PRN Reason: Hypoglycemia Protocol Digoxin (Lanoxin) 0.25 mg PO DAILY@1800 [facility] Last Admin: 07/20/18 17:21 Dose: 0.25 mg Furosemide (Lasix) 20 mg IVP BID [facility] Last Admin: 07/21/18 09:00 Dose: 20 mg Glucagon (Glucagen Diagnostic Kit) 0 mg IM STAT PRN; Protocol PRN Reason: Hypoglycemia Protocol Dextrose (Dextrose 5% In Water 1000 Ml) 1,000 mls @ 0 mls/hr IV .Q0M PRN; Protocol PRN Reason: Hypoglycemia Protocol Insulin Aspart (Novolog) 0 unit SC ACHS [facility]; Protocol Last Admin: 07/21/18 07:59 Dose: 3 unit Lactulose (Enulose) 20 gm PO HS [facility] Last Admin: 07/20/18 21:25 Dose: 20 gm Levetiracetam (Keppra) 1,000 mg PO BID [facility] Last Admin: 07/21/18 09:01 Dose: 1,000 mg Methylprednisolone (Solu-Medrol) 20 mg IVP Q8 [facility] Last Admin: 07/21/18 05:57 Dose: 20 mg Montelukast Sodium (Singulair) 10 mg PO DAILY [facility] Last Admin: 07/21/18 09:01 Dose: 10 mg Pantoprazole Sodium (Protonix Ec Tab) 40 mg PO DAILY [facility] Last Admin: 07/21/18 09:01 Dose: 40 mg Rosuvastatin Calcium (Crestor) 5 mg PO HS [facility] Last Admin: 07/20/18 21:27 Dose: 5 mg Spironolactone (Aldactone) 25 mg PO BID [facility] Last Admin: 07/21/18 09:01 Dose: 25 mg Tamsulosin HCl (Flomax) 0.4 mg PO DAILY [facility] Last Admin: 07/21/18 09:01 Dose: 0.4 mg Temazepam (Restoril) 30 mg PO HS PRN PRN Reason: Insomnia Last Admin: 07/20/18 21:25 Dose: 30 mg Thiamine HCl (Vitamin B1 Tab) 100 mg PO DAILY [facility] Last Admin: 07/21/18 09:01 Dose: 100 mg - Labs Labs: 07/16/18 10:21 07/19/18 07:17 PT 10.9 SECONDS (9.7-12.2) 07/15/18 20:24 INR 1.0 07/15/18 20:24 APTT 27.5 SECONDS (21-34) 07/15/18 20:24 - Head Exam Head Exam: ATRAUMATIC, NORMOCEPHALIC - ENT Exam ENT Exam: Mucous Membranes Moist - Neck Exam Neck Exam: Normal Inspection - Respiratory Exam Respiratory Exam: Clear to Ausculation Bilateral - Cardiovascular Exam Cardiovascular Exam: REGULAR RHYTHM Assessment and Plan (1) COPD exacerbation Assessment & Plan: P.o. prednisone Nebulizer treatment Continue Brovana budesonide Stable from pulmonary standpoint Status: Acute (2) CHF exacerbation Status: Acute
[2018-07-21] MEDS ORDERED: (Novolog) Insulin Aspart, Recombinant 100 u/ml 10 ml vial SC ONE (11:45)
[2018-07-21 11:57] VITALS: PULSE 92
[2018-07-21] MEDS ORDERED: Albuterol-Ipratrop 3 mg / 0.5 (3 ml) UD INH SCH (14:00)
--- NOTE | 2018-07-21 15:54 | CP.PCM.DIS ---
Provider - Provider Date of Admission: 07/15/18 21:25 Attending physician: Luca Lema MD Consults: 07/15/18 21:26 Pulmonology Consult Stat Comment: copd exacerb, Consulting Provider: Isma Gonzalez Consulting Physician: Isma Gonzalez Reason for Consult: copd exacerb 07/16/18 05:48 Inpatient [facility] [employer] Referral Routine Comment: Physician Instructions: Reason For Exam: chf Social Work Referral Routine Comment: lizzeth risk assessment Physician Instructions: Reason For Exam: lizzeth risk assessment 07/16/18 08:30 Critical Care Consult Routine Comment: Consulting Provider: Randall Lema Consulting Physician: Randall Lema Reason for Consult: respiratory distress 07/16/18 08:51 Cardiology Consult Routine Comment: Consulting Provider: Vince Borja Consulting Physician: Vince Borja Reason for Consult: SVT, hx HFrEF Hospital Course - Lab Results Lab Results: Micro Results 07/15/18 19:45 Blood Blood Culture - Final NO GROWTH AFTER 5 DAYS 07/15/18 19:45 Blood Gram Stain - Final TEST NOT PERFORMED 07/15/18 20:15 Blood Blood Culture - Final NO GROWTH AFTER 5 DAYS 07/15/18 20:15 Blood Gram Stain - Final TEST NOT PERFORMED Most Recent Lab Values WBC 7.9 K/uL (4.8-10.8) 07/16/18 10:21 RBC 3.61 Mil/uL (4.40-5.90) L 07/16/18 10:21 Hgb 9.1 g/dL (12.0-18.0) L 07/16/18 10:21 Hct 29.1 % (35.0-51.0) L 07/16/18 10:21 MCV 80.5 fL (80.0-94.0) 07/16/18 10:21 MCH 25.3 pg (27.0-31.0) L 07/16/18 10:21 MCHC 31.4 g/dL (33.0-37.0) L 07/16/18 10:21 RDW 18.3 % (11.5-14.5) H 07/16/18 10:21 Plt Count 393 K/uL (130-400) 07/16/18 10:21 MPV 8.7 fL (7.2-11.7) 07/16/18 10:21 Neut % (Auto) 89.7 % (50.0-75.0) H 07/16/18 10:21 Lymph % (Auto) 4.1 % (20.0-40.0) L 07/16/18 10:21 [place] % (Auto) 5.0 % (0.0-10.0) 07/16/18 10:21 Eos % (Auto) 0.0 % (0.0-4.0) 07/16/18 10:21 Baso % (Auto) 1.2 % (0.0-2.0) 07/16/18 10:21 Neut # (Auto) 7.1 K/uL (1.8-7.0) H 07/16/18 10:21 Lymph # (Auto) 0.3 K/uL (1.0-4.3) L 07/16/18 10:21 [place] # (Auto) 0.4 K/uL (0.0-0.8) 07/16/18 10:21 Eos # (Auto) 0.1 K/uL (0.0-0.7) 07/16/18 10:21 Baso # (Auto) 0.1 K/uL (0.0-0.2) 07/16/18 10:21 Neutrophils % (Manual) 90 % (50-75) H 07/16/18 10:21 Lymphocytes % (Manual) 4 % (20-40) L 07/16/18 10:21 Monocytes % (Manual) 6 % (0-10) 07/16/18 10:21 Nucleated RBC % 2 % (0-0) H 07/16/18 10:21 Platelet Estimate Normal (NORMAL) 07/16/18 10:21 Large Platelets Present 07/16/18 10:21 Polychromasia Slight 07/16/18 10:21 Hypochromasia (manual) Slight 07/16/18 10:21 Poikilocytosis (manual Slight 07/16/18 10:21 Anisocytosis (manual) Slight 07/16/18 10:21 Macrocytosis (manual) Slight 07/15/18 20:24 Spherocytes Slight 07/16/18 10:21 Target Cells Slight 07/16/18 10:21 Tear Drop Cells Slight 07/16/18 10:21 Ovalocytes Slight 07/16/18 10:21 PT 10.9 SECONDS (9.7-12.2) 07/15/18 20:24 INR 1.0 07/15/18 20:24 APTT 27.5 SECONDS (21-34) 07/15/18 20:24 D-Dimer, Quantitative 685 ng/mlDDU (0-243) H 07/16/18 08:27 Puncture Site Artery 07/15/18 20:15 pCO2 46 mm/Hg (35-45) H 07/15/18 20:15 pO2 141 mm/Hg (80-100) H 07/15/18 20:15 HCO3 23.5 mmol/L (21-28) 07/15/18 20:15 ABG pH 7.33 (7.35-7.45) L 07/15/18 20:15 ABG Total CO2 25.7 mmol/L (22-28) 07/15/18 20:15 ABG O2 Saturation 95.9 % (95-98) 07/15/18 20:15 ABG Base Excess -1.9 mmol/L (-2.0-3.0) 07/15/18 20:15 Yonatan Test Pos 07/15/18 20:15 ABG Potassium 3.5 mmol/L (3.6-5.2) L 07/15/18 20:15 Sodium 139.0 mmol/l (132-148) 07/15/18 20:15 Chloride 102.0 mmol/L (98-107) 07/15/18 20:15 Glucose 116 mg/dl (75-110) H 07/15/18 20:15 Lactate 5.9 mmol/L (0.7-2.1) H* 07/15/18 20:15 Liter Flow 5.0 07/15/18 20:15 Crit Value Called To Rosalind acosta 07/15/18 20:15 Crit Value Called By [employer]ro[employer] printing specialist 07/15/18 20:15 Crit Value Read Back Y 07/15/18 20:15 Blood Gas Notified Time 201807/15/18 20:15 Sodium 131 mmol/L (132-148) L 07/19/18 07:17 Potassium 3.8 mmol/L (3.6-5.2) 07/19/18 07:17 Chloride 94 mmol/L (98-107) L 07/19/18 07:17 Carbon Dioxide 30 mmol/L (22-30) 07/19/18 07:17 Anion Gap 11 (10-20) 07/19/18 07:17 BUN 23 mg/dL (9-20) H 07/19/18 07:17 Creatinine 0.7 mg/dL (0.8-1.5) L 07/19/18 07:17 Est GFR ( Amer) > 60 07/19/18 07:17 Est GFR (Non-Af Amer) > 60 07/19/18 07:17 POC Glucose (mg/dL) 469 mg/dL (65-110) H* 07/21/18 11:21 Random Glucose 373 mg/dL (75-110) H 07/19/18 07:17 Lactic Acid 3.9 mmol/L (0.7-2.1) H 07/16/18 08:29 Calcium 8.7 mg/dl (8.6-10.4) 07/19/18 07:17 Phosphorus 3.5 mg/dL (2.5-4.5) 07/19/18 07:17 Magnesium 1.9 mg/dL (1.6-2.3) 07/19/18 07:17 Total Bilirubin 0.9 mg/dL (0.2-1.3) 07/19/18 07:17 AST 98 U/L (17-59) H D 07/19/18 07:17 ALT 119 U/L (21-72) H D 07/19/18 07:17 Alkaline Phosphatase 263 U/L (38-126) H D 07/19/18 07:17 Ammonia 41 umol/L (9-33) H D 07/19/18 07:17 Total Creatine Kinase 36 U/L (55-170) L 07/16/18 08:27 CK-MB (Mass) 4.71 ng/mL (0.0-3.38) H 07/16/18 08:27 Troponin I 0.0340 ng/mL (0.00-0.120) 07/16/18 08:27 NT-Pro-B Natriuret Pep 1340 pg/mL (0-900) H 07/15/18 20:24 Total Protein 6.2 g/dL (6.3-8.3) L 07/19/18 07:17 Albumin 3.5 g/dL (3.5-5.0) 07/19/18 07:17 Globulin 2.7 gm/dL (2.2-3.9) 07/19/18 07:17 Albumin/Globulin Ratio 1.3 (1.0-2.1) 07/19/18 07:17 Procalcitonin 0.07 NG/ML (0.19-0.49) L 07/16/18 08:27 Free T4 0.99 ng/dL (0.78-2.19) 07/16/18 08:27 TSH 3rd Generation 0.78 mIU/L (0.46-4.68) 07/16/18 08:27 Arterial Blood Potassium 3.5 mmol/L (3.6-5.2) L 07/15/18 20:15 Urine Color Straw (YELLOW) 07/15/18 21:33 Urine Clarity Clear (Clear) 07/15/18 21:33 Urine pH 7.0 (5.0-8.0) 07/15/18 21:33 Ur Specific Can[place] 1.004 (1.003-1.030) 07/15/18 21:33 Urine Protein Negative mg/dL (NEGATIVE) 07/15/18 21:33 Urine Glucose (UA) Normal mg/dL (Normal) 07/15/18 21:33 Urine Ketones Negative mg/dL (NEGATIVE) 07/15/18 21:33 Urine Blood Negative (NEGATIVE) 07/15/18 21:33 Urine Nitrate Negative (NEGATIVE) 07/15/18 21: Urine Bilirubin Negative (NEGATIVE) 07/15/18 21:33 Urine Urobilinogen Normal mg/dL (0.2-1.0) 07/15/18 21:33 Ur Leukocyte Esterase Neg Jesu/uL (Negative) 07/15/18 21:33 Urine WBC (Auto) < 1 /hpf (0-5) 07/15/18 21:33 Urine RBC (Auto) < 1 /hpf (0-3) 07/15/18 21:33 Ur Squamous Epith Cells 2 /hpf (0-5) 07/15/18 21:33 Urine Bacteria Rare (<OCC) 07/15/18 21:33 Urine Opiates Screen Negative (NEGATIVE) 07/16/18 11:25 Urine Methadone Screen Negative (NEGATIVE) 07/16/18 11:25 Ur Barbiturates Screen Negative (NEGATIVE) 07/16/18 11:25 Ur Phencyclidine Scrn Negative (NEGATIVE) 07/16/18 11:25 Ur Amphetamines Screen Negative (NEGATIVE) 07/16/18 11:25 U Benzodiazepines Scrn Negative (NEGATIVE) 07/16/18 11:25 U Oth Cocaine Metabols Negative (NEGATIVE) 07/16/18 11:25 U Cannabinoids Screen Positive (NEGATIVE) H 07/16/18 11:25 Alcohol, Quantitative 257 mg/dl (0-10) H 07/15/18 20:24 Discharge Exam - Head Exam Head Exam: ATRAUMATIC, NORMOCEPHALIC Discharge Plan - Discharge Medications Prescriptions: RX: Spironolactone [Aldactone] 25 mg PO BID 30 Days tab RX: Aspirin [Aspirin Chewable] 81 mg PO DAILY 30 Days chew RX: Carvedilol [Coreg] 6.25 mg PO BID #30 tab RX: Losartan [Cozaar] 25 mg PO DAILY 30 Days tab RX: Rosuvastatin Calcium [Crestor] 40 mg PO DAILY 30 Days tablet RX: Apixaban [Eliquis] 5 mg PO BID 30 Days tab RX: Tamsulosin [Flomax] 0.4 mg PO DAILY 30 Days cap RX: Folic Acid 1 mg PO DAILY 30 Days tab RX: Glimepiride 2 mg PO BID 30 Days tablet RX: levETIRAcetam [Keppra] 1,000 mg PO BID 30 Days tab RX: Digoxin [Lanoxin] 0.25 mg PO DAILY@1800 30 Days tab RX: Furosemide [Lasix] 40 mg PO DAILY 30 Days tab RX: Atorvastatin [Lipitor] 20 mg PO DAILY 30 Days tab RX: Magnesium Oxide [Mag-Ox] 400 mg PO DAILY 30 Days tab Methylprednisolone [Medrol Dose Pack (21 tabs)] 4 mg PO DAILY #21 mg RX: Pantoprazole Sodium [Protonix] 40 mg PO DAILY 30 Days tablet.dr RX: Temazepam [Restoril] 30 mg PO HS PRN #5 cap PRN Reason: Insomnia RX: Montelukast [Singulair] 10 mg PO HS 30 Days tab RX: Albuterol HFA [Ventolin HFA 90 mcg/actuation (8 g)] 1 puff IH QID PRN #1 inhaler PRN Reason: Wheezing RX: Thiamine [Vitamin B1 Tab] 100 mg PO DAILY 30 Days tab RX: Lisinopril [Zestril] 20 mg PO DAILY 30 Days tab - Follow Up Plan Condition: GUARDED Disposition: HOME/ ROUTINE Instructions: COPD Including Emphysema (DC), Heart Failure, Adult (DC) Additional Instructions: Follow up with Dr. Catalino Lema in 2-3 weeks Follow up with Dr. Gonzalez in 2 weeks Follow up with Dr. Thompson in 2 weeks Resume all home medications New prescriptions Medrol Philip Losartan 25mg PO daily Activity as tolerated Call Dr. Catalino Lema or go to the emergancy room if symptoms return or worsen Discuss with patient and family at the bedside who agree and verbalize understanding Referrals: Isma Gonzalez MD [Staff Provider] - Vince Borja MD [Staff Provider] - Quinten Lema MD [Staff Provider] -
--- NOTE | 2018-07-21 17:40 | CP.PCM.PN ---
Subjective - Date & Time of Evaluation Date of Evaluation: 07/21/18 Time of Evaluation: 10:00 - Subjective Subjective: pt resting comfortably in bed. Pt alert and oriented x3 with no complaints. Objective - Vital Signs/Intake and Output Vital Signs (last 24 hours): Temp Pulse Resp BP Pulse Ox 97.9 F 92 H 20 122/76 97 07/21/18 07:15 07/21/18 11:57 07/21/18 07:15 07/21/18 09:00 07/21/18 07:15 Intake and Output: 07/21/18 07/21/18 06:59 18:59 Intake Total 450 Output Total 1000 Balance -550 - Labs Labs: 07/16/18 10:21 07/19/18 07:17 PT 10.9 SECONDS (9.7-12.2) 07/15/18 20:24 INR 1.0 07/15/18 20:24 APTT 27.5 SECONDS (21-34) 07/15/18 20:24 Assessment and Plan - Assessment and Plan (Free Text) Assessment: Pt seen and examined. VSS, Labs reviewed. Pt has no complaints at this time. Discharge discussed with Dr. Catalino Lema. Dr. Thompson cleared pt. Plan: Follow up with Dr. Catalino Lema in 2-3 weeks Follow up with Dr. Gonzalez in 2 weeks Follow up with Dr. Thompson in 2 weeks Resume all home medications New prescriptions Medrol Philip Losartan 25mg PO daily Activity as tolerated Call Dr. Catalino Lema or go to the emergancy room if symptoms return or worsen Discuss with patient and family at the bedside who agree and verbalize understanding
== END 2018-07-21 14:31 | disposition home or self-care (01) | DRG 541 ==
LOC: C.ER 19:13 → C.6T 21:25
PROVIDERS: ADMIT Internal Medicine Nephrology; ATTEND Internal Medicine Nephrology
DX: J43.9 Emphysema, unspecified (principal); I50.22 Chronic systolic (congestive) heart failure; I48.92 Unspecified atrial flutter; I11.0 Hypertensive heart disease with heart failure; I47.1 Supraventricular tachycardia; I25.10 Atherosclerotic heart disease of native coronary artery without angina pectoris; I48.2 Chronic atrial fibrillation; E11.9 Type 2 diabetes mellitus without complications; E78.00 Pure hypercholesterolemia, unspecified; F17.200 Nicotine dependence, unspecified, uncomplicated; Z87.01 Personal history of pneumonia (recurrent); Z91.14 Patient's other noncompliance with medication regimen; Z95.810 Presence of automatic (implantable) cardiac defibrillator; Z95.1 Presence of aortocoronary bypass graft; Z95.2 Presence of prosthetic heart valve; Z95.5 Presence of coronary angioplasty implant and graft; Z79.84 Long term (current) use of oral hypoglycemic drugs; Z79.01 Long term (current) use of anticoagulants